=== PATIENT | female | born 1960 | race Caucasian/White ===

== ENCOUNTER 2021-08-05 16:39 | Emergency (ER) | payer OTHER, SELFPAY ==
[2021-08-05] VITALS (41 sets, daily range): BP systolic 121–146; BP diastolic 60–89; PULSE 83–103; RESP 12–28; TEMP 36.3; O2SAT 87–98
--- NOTE | 2021-08-05 16:45 | DI.RAD_ITS ---
Exam(s) XR HIP RT COMPLETE AP PELVIS EXAM: XR HIP RT COMPLETE AP PELVIS CLINICAL HISTORY: fall, injury. TECHNIQUE: 2D digital imaging was performed. COMPARISON: No exams were available for comparison FINDINGS: 3 views Is fractures through the upper femoral neck of the right hip. Mild displacement. No other pelvic fr actures identified. IMPRESSION: Right femoral neck fracture. DATA REPOSITORY: RADIATION DOSE DELIVERED:
[2021-08-05] MEDS: MORPHine 4 MG/ML SYR 3 MG IVP (17:10)
[2021-08-05 17:17] LABS: Abs Immature Grans 0.15 10^3/uL (0.0-0.06); Absolute Basophil Count 0.09 10^3/uL (0.0-0.2); Absolute Eosinophil Count 0.05 10^3/uL (0.0-0.7); Absolute Lymphocyte Count 1.56 10^3/uL (1.2-3.4); Absolute Monocyte Count 1.22 10^3/uL (0.1-0.8); Absolute Neutrophil Count 14.87 10^3/uL (1.2-6.7); Basophils % 0.5; Eosinophils % 0.3; HCT 37.8 % (36.0-46.0); HGB 12.4 g/dL (11.2-15.7); Immature Grans % 0.8; Lymphocytes % 8.7; MCH 33.8 pg (27.0-33.0); MCHC 32.8 % (32.0-36.0); MPV 9.9 fL (8.0-11.0); Monocytes % 6.8; Neutrophils % 82.9; Nucleated RBC 0 %; Platelet Count 287 10^3/uL (130-400); RBC 3.67 10^6/uL (3.93-5.22); RDW 13.8 % (11.7-14.6); WBC 17.94 10^3/uL (4.4-10.8)
[2021-08-05 17:31] LABS: ALT 29 U/L (14-59); AST 32 U/L (15-37); Albumin 3.9 g/dL (3.4-5.0); Alkaline Phosphatase 86 U/L (46-116); Anion Gap 8.8 mmol/L (3-11); BUN 30 mg/dL (7-18); Bilirubin, Total 0.3 mg/dL (0.2-1.0); CO2 30.2 mmol/L (21.0-32.0); CREATININE 0.6 mg/dL (0.55-1.02); Calcium 8.9 mg/dL (8.5-10.1); Chloride 100 mmol/L (98-107); Glucose 72 mg/dL (74-106); Potassium 3.4 mmol/L (3.5-5.1); Sodium 139 mmol/L (136-145); Total Protein 6.9 g/dL (6.4-8.2)
[2021-08-05 17:34] LABS: ETHANOL BLOOD 197.1 mg/dL (<10)
--- NOTE | 2021-08-05 17:45 | DI.CT_ITS ---
Exam(s) CT HEAD CERVICAL SPINE WO EXAM: CT HEAD CERVICAL SPINE WO CLINICAL HISTORY: fall, hip fx, etoh. TECHNIQUE: Imaging Protocol: Axial computed tomography images with coronal and sagittal reformatted images were created and reviewed COMPARISON: No exams were available for comparison FINDINGS: BRAIN: There are no skull fractures nor fluid in the visualized paranasal sinuses. However, there is multif ocal mucosal thickening consistent with probable polyps and/or post inflammatory retention cyst in th e maxillary sinuses, more prominent on the right side. Also mildly in the posterior wall of the sphe noid sinus. Frontal sinuses are hypoplastic. Mastoid air cells are clear. There is no evidence of intracranial hemorrhage, mass effect, or shift of midline structures. There are no extra-axial fluid collections. The ventricles are not enlarged or shifted and there is no blo od within the ventricular system nor within the basal cisterns. CERVICAL SPINE: There is no evidence of fracture nor significant listhesis. No significant prevertebral soft tissue swelling. There is no significant facet joint malalignment. No significant osseous lesions evident. Severe COPD emphysematous changes are noted in the visualized lung apices. IMPRESSION: No acute intracranial findings on this noninfused CT scan of the brain. No evidence of cervical spine fracture, malalignment, nor acute compromise of the cervical spinal can al. RADIATION DOSE DELIVERED: 1,493.04mGy.cm Total DLP DATA REPOSITORY: All CT scans at this facility are submitted to the National Radiology Data Registry (NRDR) Dose Index Registry (DIR) with the [employer] (A[employer]). RADIATION OPTIMIZATION: All CT scans at this facility use at least one of these dose optimization te chniques: automated exposure control; mA and/or kV adjustment per patient size (includes targeted exa ms where dose is matched to clinical indication); or iterative reconstruction.
--- NOTE | 2021-08-05 17:45 | DI.CT_ITS ---
Exam(s) CT ABDOMEN PELVIS W EXAM: CT ABDOMEN PELVIS W CLINICAL HISTORY: fall, hip pain, right hip fx , etoh. TECHNIQUE: Imaging Protocol: Axial computed tomography images with coronal and sagittal reformatted images were created and reviewed CONTRAST MATERIAL: Intravenous: Omnipaque 100cc Oral: None COMPARISON: No exams were available for comparison FINDINGS: VISUALIZED LUNG BASES: No nodules nor pleural effusions evident. ABDOMEN: There is no ascites. LIVER: There are no focal hepatic lesions evident. A surgical clip is seen within the right hepatic lobe. Also multiple surgical clips adjacent to the right adrenal gland. These clips are related to prior right nephrectomy. GALLBLADDER/BILIARY: Gallbladder is slightly distended but no gallbladder wall edema nor calculi. CB D is not dilated. PANCREAS: No evidence of pancreatic mass nor dilatation of the pancreatic duct. SPLEEN: Spleen is not enlarged. No obvious intrasplenic lesions. Splenic and portal veins are paten t. ADRENALS: There are no significant adrenal masses. KIDNEYS:Prior right nephrectomy. No abnormal tissue in this region. There is a cyst in the inferior pole of the remaining left kidney measuring 2.3 by 1.3 cm. No other focal left renal findings. No hydronephrosis nor hydroureter. ABDOMINAL AORTA: Abdominal aorta is not enlarged. LYMPH NODES:There is no retroperitoneal nor paraaortic adenopathy. ABDOMINAL WALL: No evidence of significant anterior abdominal wall nor inguinal hernia. GI: There is no evidence of bowel obstruction, free air, nor abscess. PELVIS: GI: No evidence of appendicitis.No evidence of sigmoid diverticulitis. LYMPH NODES: There is no intrapelvic nor inguinal adenopathy. REPRODUCTIVE: Uterus unremarkable. Left ovary appears slightly prominent for this age group, measuri ng 3.5 by 2.5 cm and contains a hypodense dense cyst measuring 9 x 9 millimeters. No free fluid. URINARY BLADDER: The urinary bladder is collapsed around the Sherman catheter. OSSEOUS: There is an displaced right femoral neck subcapital fracture.. No evidence of intrapelvic h ematoma. No other fractures identified. Mild degenerative anterolisthesis L4 upon L5. IMPRESSION: 1. There is an acute fracture of the right femoral neck with mild displacement and angulation. No ev idence of intrapelvic hematoma, other fractures, nor other significant trauma sequelae in the abdomen and pelvis. 2. Previous right nephrectomy. No abnormal tissue in the right renal fossa. Solitary cyst in the op posite-left kidney measuring 2.3 cm. No hydronephrosis. 3. Sherman catheter in the bladder and the bladder is collapsed. 4. No compression fractures. RADIATION DOSE DELIVERED: 673.92 mGy.cm Total DLP DATA REPOSITORY: All CT scans at this facility are submitted to the National Radiology Data Registry (NRDR) Dose Index Registry (DIR) with the [employer] (ACR). RADIATION OPTIMIZATION: All CT scans at this facility use at least one of these dose optimization te chniques: automated exposure control; mA and/or kV adjustment per patient size (includes targeted exa ms where dose is matched to clinical indication); or iterative reconstruction.
--- NOTE | 2021-08-05 17:57 | DI.CT_ITS ---
Exam(s) CT LUMBAR SPINE RECONS EXAM: CT LUMBAR SPINE RECONS CLINICAL HISTORY: fall, pain. TECHNIQUE: Imaging Protocol: Axial computed tomography images with coronal and sagittal reformatted images were created and reviewed COMPARISON: CT CT ABDOMEN PELVIS W from 08/05/2021 FINDINGS: Bones: There are no vertebral fractures, nor osseous lesions. Disc spaces exhibit normal height. T here is mild degenerative anterolisthesis of L4 upon L5. There are no pars defects. INDIVIDUAL LEVELS: T12-L1:No disc herniation nor canal stenosis. Facet joints unremarkable. No foraminal stenosis. L1-2: No disc herniation nor canal stenosis. Facet joints unremarkable. No foraminal stenosis. L2-3: No disc herniation nor canal stenosis. Facet joints unremarkable. No Foraminal stenosis L3-4: No disc herniation nor canal stenosis. Facet joints unremarkable. No foraminal stenosis. L4-5: Normal disc height. Mild anterolisthesis of L4 upon L5, approximately 3 millimeters. There i s no focal disc herniation but there is moderate central spinal canal stenosis due to broad annular b ulging related to the listhesis and short AP dimensions the pedicles. Also some degenerative changes in the facet joints. There is no significant foraminal stenosis at this level. L5-S1: No disc herniation or canal stenosis. The visualized sacroiliac joints and sacrum appear unremarkable. PARASPINAL SOFT TISSUES: Visualized paraspinal tissues appear unremarkable. IMPRESSION: 1. No vertebral fractures. 2. Mild degenerative anterolisthesis of L4 upon L5 with moderate central spinal canal stenosis eviden t at this level. 3. No lytic osseous lesions evident. RADIATION DOSE DELIVERED: Total DLP DATA REPOSITORY: All CT scans at this facility are submitted to the National Radiology Data Registry (NRDR) Dose Index Registry (DIR) with the [employer] (ACR). RADIATION OPTIMIZATION: All CT scans at this facility use at least one of these dose optimization te chniques: automated exposure control; mA and/or kV adjustment per patient size (includes targeted exa ms where dose is matched to clinical indication); or iterative reconstruction.
--- NOTE | 2021-08-05 17:57 | DI.VRAD_ITS ---
PROCEDURE INFORMATION: Exam: XR Right Hip Exam date and time: 08/05/2021 5:21 PM Age: 60 years old Clinical indication: Injury or trauma; Fall; Blunt trauma (contusions or hematomas); Right; Hip TECHNIQUE: Imaging protocol: XR Right hip. Views: 2 or 3 views hip with pelvis when performed. COMPARISON: No relevant images were readily available for comparison purposes. FINDINGS: Bones/joints: There is an acute mildly displaced subcapital right femoral neck fracture. Soft tissues: Unremarkable. IMPRESSION: Acute right femoral neck fracture. Dictated and Authenticated by: Trace Polanco MD. Ordering:HILDA Hong MD
--- NOTE | 2021-08-05 17:59 | DI.RAD_ITS ---
Exam(s) XR CHEST 1V IN DI DEPT EXAM: XR CHEST 1V IN DI DEPT CLINICAL HISTORY: hip fx, hx of og. TECHNIQUE: 2D digital imaging was performed. COMPARISON: No exams were available for comparison FINDINGS: Single AP portable view. Heart size is upper normal. The mediastinum is not widened. Lungs are clear. No infiltrates nor obvious pleural effusions. IMPRESSION: No acute pulmonary findings on this single AP portable view of the chest. DATA REPOSITORY: RADIATION DOSE DELIVERED: All CT scans at this facility use at least one of these dose optimization techniques: automated exposure control; mA and/or kV adjustment per patient size (includes targeted e xams where dose is matched to clinical indication); or iterative reconstruction.
[2021-08-05 18:09] LABS: Bilirubin Negative (Negative); Blood Negative (Negative); Clarity Clear (Clear); Glucose Negative (Negative); Ketones Negative (Negative); Leukocyte Esterase Negative (Negative); Nitrite Negative (Negative); Specific Gravity 1.025 (1.005-1.025); Urobilinogen 0.2 EU/dL (Up TO 0.2)
[2021-08-05 18:21] LABS: *AMPHETAMINES SCREEN URINE Negative (Negative); *BARBITURATES SCREEN URINE Negative (Negative); *BENZODIAZEPINES SCREEN URINE Negative (Negative); Cannabinoids THC Negative (Negative); Cocaine Screen,Urine Negative (Negative); METHADONE URINE SCREEN Negative (Negative); OPIATES URINE SCREEN Positive (Negative)
[2021-08-05 18:22] LABS: Tricyclic Antidepressants Negative (Negative)
--- NOTE | 2021-08-05 19:15 | DI.VRAD_ITS ---
PROCEDURE INFORMATION: Exam: CT Abdomen And Pelvis With Contrast Exam date and time: 08/05/2021 6:48 PM Age: 60 years old Clinical indication: Injury or trauma; Blunt; Patient HX: Fall, hip pain, right hip FX, ETOH TECHNIQUE: Imaging protocol: Computed tomography of the abdomen and pelvis with contrast. COMPARISON: CR XR HIP RT COMPLETE AP PELVIS 08/05/2021 5:21 PM FINDINGS: Lungs: Mild centrilobular emphysematous changes in bilateral lung bases. Liver: Normal. No mass. Gallbladder and bile ducts: Normal. No calcified stones. No ductal dilation. Pancreas: Normal. No ductal dilation. Spleen: Normal. No splenomegaly. Adrenal glands: Normal. No mass. Kidneys and ureters: Right nephrectomy. Compensatory hypertrophy in left kidney. Stomach and bowel: Diffuse wall thickening in gastric antrum and pylorus. Appendix: No evidence of appendicitis. Intraperitoneal space: No free fluid or fluid collections. No inflammatory changes. No free air. Vasculature: Unremarkable. No abdominal aortic aneurysm. Lymph nodes: Unremarkable. No enlarged lymph nodes. Urinary bladder: Sherman balloon within urinary bladder. Reproductive: Unremarkable as visualized. Bones/joints: Fracture of right femoral neck with mild displacement and moderate angulation. Soft tissues: Unremarkable. IMPRESSION: 1. Fracture of right femoral neck with mild displacement and moderate angulation. 2. No evidence of visceral organ or vascular injury. 3. Diffuse wall thickening in gastric antrum and pylorus. Please correlate clinically for gastritis. Dictated and Authenticated by: Jacqueline Curtis MD. Ordering:HILDA Hong MD
--- NOTE | 2021-08-05 19:16 | DI.VRAD_ITS ---
PROCEDURE INFORMATION: Exam: CT Head Without Contrast Exam date and time: 08/05/2021 6:40 PM Age: 60 years old Clinical indication: Injury or trauma; Patient HX: Fall, hip FX, ETOH TECHNIQUE: Imaging protocol: Computed tomography of the head without contrast. COMPARISON: No relevant prior studies available. FINDINGS: Brain: Normal. No hemorrhage. Unremarkable white matter. No mass effect. Extra-axial space: No evidence of subdural hemorrhage. Cerebral ventricles: No ventriculomegaly. Paranasal sinuses: Visualized sinuses are unremarkable. No fluid levels. Mastoid air cells: Visualized mastoid air cells are well aerated. Bones/joints: Unremarkable. No acute fracture. Soft tissues: Unremarkable. IMPRESSION: No acute intracranial abnormality. PROCEDURE INFORMATION: Exam: CT Cervical Spine Without Contrast Exam date and time: 08/05/2021 6:40 PM Age: 60 years old Clinical indication: Injury or trauma; Patient HX: Fall, hip FX, ETOH TECHNIQUE: Imaging protocol: Computed tomography images of the cervical spine without contrast. COMPARISON: No relevant prior studies available. FINDINGS: Bones/joints: Degenerative changes noted in the temporomandibular joints bilaterally. Mild degenerative anterolisthesis C2 on C3. Discs/Spinal canal/Neural foramina: Moderate disc space narrowing with endplate sclerosis and osteophytes noted C5-C6. Mild degenerative changes present elsewhere. Sinuses: Large polyp or mucous retention cyst noted in the right maxillary sinus. Dental: Moderate right maxillary dental disease. Lungs: Severe centrilobular emphysema. Soft tissues: Unremarkable. Other findings: Moderate motion artifact. IMPRESSION: No evidence of cervical spine fracture. Dictated and Authenticated by: Alejandro Alfredo MD. Ordering:HILDA Hong MD
--- NOTE | 2021-08-05 19:16 | DI.VRAD_ITS ---
PROCEDURE INFORMATION: Exam: XR Chest Exam date and time: 08/05/2021 6:50 PM Age: 60 years old Clinical indication: Injury or trauma; Fall; Blunt trauma (contusions or hematomas) TECHNIQUE: Imaging protocol: XR of the chest. Views: 1 view. COMPARISON: CT ABDOMEN PELVIS W 08/05/2021 6:48 PM FINDINGS: Lungs: No infiltrates. No mass lesion or nodule seen. Pleural spaces: Unremarkable. No pleural effusion. No pneumothorax. Heart/Mediastinum: Unremarkable. No cardiomegaly. Bones/joints: Unremarkable. IMPRESSION: No evidence of pathology. Dictated and Authenticated by: Jacqueline Curtis MD. Ordering:HILDA Hong MD
--- NOTE | 2021-08-05 19:18 | DI.VRAD_ITS ---
PROCEDURE INFORMATION: Exam: CT Lumbar Spine Without Contrast Exam date and time: 08/05/2021 6:48 PM Age: 60 years old Clinical indication: Injury or trauma; Blunt trauma (contusions or hematomas); Patient HX: Fall, pain, RT hip FX TECHNIQUE: Imaging protocol: Computed tomography images of the lumbar spine without contrast. COMPARISON: CR XR HIP RT COMPLETE AP PELVIS 08/05/2021 5:21 PM FINDINGS: Vertebrae: Vertebral body heights are within normal limits. No evidence of compression fracture. No evidence of acute fracture. L1-L2: No significant disc protrusion. No severe spinal canal stenosis. No significant neural foraminal narrowing. L2-L3: No significant disc protrusion. No severe spinal canal stenosis. No significant neural foraminal narrowing. L3-L4: 3 mm diffuse bulge. Redundancy of ligamentum flavum. Mild canal stenosis. L4-L5: 4 mm degenerative anterolisthesis of L4 over L5. 3 mm diffuse posterior bulge. Redundancy of ligamentum flavum. Moderate canal stenosis. No neural foraminal narrowing. Left facet arthropathy. Mild right facet arthropathy. L5-S1: No evidence of disc protrusion or extrusion. No evidence of significant disc bulge. No canal stenosis. No neuroforaminal stenosis. Soft tissues: Unremarkable. IMPRESSION: Vertebral body heights are within normal limits. No evidence of compression fracture. No evidence of acute fracture. Dictated and Authenticated by: Jacqueline Curtis MD. Ordering:HILDA Hong MD
[2021-08-05] MEDS: Normal Saline 500 ML IV (19:27)
[2021-08-05] MEDS: MORPHine 4 MG/ML SYR IVP ×2 (19:27→22:03)
[2021-08-05 19:54] LABS: COVID-19 PCR Negative (Negative); Source Nasal/Nares
--- NOTE | 2021-08-05 20:15 | DI.RAD_ITS ---
Exam(s) XR FEMUR RT EXAM: XR FEMUR RT CLINICAL HISTORY: fracture. TECHNIQUE: 2D digital imaging was performed. COMPARISON: CT CT ABDOMEN PELVIS W from 08/05/[address] LUMBAR SPINE RECONS from 08/05/2021 FINDINGS: Two views There is limited visualization of the right hip. However, there does appear to be a mildly displaced subcapital femoral neck fracture. There is no fracture in the distal half of the femur. IMPRESSION: DATA REPOSITORY: RADIATION DOSE DELIVERED:
--- NOTE | 2021-08-05 20:49 | W.ED.GENAD ---
Discharge Plan Disposition Patient Disposition: [facility] Condition: Stable Discharge Details Clinical Impression: Closed fracture of right hip, Alcohol abuse Primary Care Provider: Aurora Tapia ED Provider: Gely Rivas Home Meds and New Rx's Prescriptions: Continued simvastatin 10 mg Tablet 10 mg PO DAILY 0RF furosemide [Lasix] 20 mg Tablet 20 mg PO DAILY 0RF sirolimus [Rapamune] 2 mg Tablet 2 mg PO DAILY 0RF ascorbic acid (vitamin C) [Vitamin C] 1,000 mg Tablet 1,000 mg PO DAILY 0RF metoprolol tartrate 25 mg Tablet 25 mg PO DAILY 0RF Medical Decision Making Patient is complicated, she is a blood alcohol of 197 but denies regular alcohol consumption She states she did have some alcohol last evening with her friends. She denies any daily drinking. She also denies any opiate use and she is opiate positive on her urinalysis She is tolerating her 3 L of oxygen without incident throughout her stay She responding well to 4 mg of morphine for pain control Her chest x-ray, CT abdomen and pelvis, and CT brain and cervical spine do not show acute abnormality aside from right femoral neck fracture which was confirmed on x-ray Her urinalysis is clear for evidence of infection She does have mild leukocytosis at 17,000, I do not see a source of infection Her Covid swab is negative She is fully alert and oriented throughout with encounter and she is agreeable to transfer to alternate facility as needed not have orthopedics available Her blood sugar was 72-year, supplemented with juice and maura crackers Patient has no reported history of diabetes Given observed her for evidence of alcohol withdrawal throughout her encounter sure there is been no evidence throughout her stay Potassium was 3.4, we will supplement 10 mEq potassium BUN is 30, she received 1 L of normal saline Case discussed with Dr. Costello, orthopedic who has accepted patient in transport to [facility] Preserved on [facility], no evidence of withdrawal throughout her evaluation today Medical Records Medical records reviewed: Yes I reviewed the patient's medical records. Lab Data Lab results reviewed: Yes I reviewed the patient's lab results. HPI General Date/Time Provider Initiated Documentation: 08/05/21 16:57. HPI Narrative: This 60-year-old female with history of FOLEY, hypertension, hyperlipidemia, on 3 L of oxygen at baseline, and peripheral edema presents with report of fall at approximately 9:00 this morning. She reports that she was walking with some boxes that she is moving and tripped over a box, falling on her right side. She denies any head injury. She states initially she was able to ambulate but then about 4:00 she had some difficulty and called the ambulance as she was unable to successfully ambulate any longer. She denies head injury, anticoagulation, chest pain, abdominal pain, shortness of breath. She denies any dizziness. She denies prior history of injury to the affected extremity before. She has any nausea or vomiting. She states she is unable to place any pressure on the affected extremity. Denies any sensation changes distally. Denies any current headache or neck pain. Related Data Home Medications Medication Instructions Recorded Confirmed ascorbic acid (vitamin C) 1,000 mg 1,000 mg PO DAILY 08/05/21 08/05/21 tablet (Vitamin C) furosemide 20 mg tablet (Lasix) 20 mg PO DAILY 08/05/21 08/05/21 metoprolol tartrate 25 mg tablet 25 mg PO DAILY 08/05/21 08/05/21 simvastatin 10 mg tablet 10 mg PO DAILY 08/05/21 08/05/21 sirolimus 2 mg tablet (Rapamune) 2 mg PO DAILY 08/05/21 08/05/21 Allergies Allergy/AdvReac Type Severity Reaction Status Date / Time No Known Allergies Allergy Unverified 08/05/21 16:49 General Stated Complaint: Orthopedic LAZARA: 3 Review of Systems All systems reviewed & are unremarkable except as noted in HPI and below PFSH All Active Problems Closed fracture of right hip (Acute) Alcohol abuse (Chronic) Social History Smoking/Tobacco Use Status: Former Tobacco Use Smoking risk assessment performed?: Yes Drug use: Never Substance use type: does not use Exam Const General: cooperative and comfortable Orientation: alert and oriented x3 HENMT Head: normal to inspection Eyes Pupils: PERRL Resp Effort & Inspection: normal respiratory effort Auscultation: clear to auscultation bilaterally Cardio Rate: regular rate Rhythm: regular rhythm GI Inspection: normal to inspection Other: No abdominal tenderness or visible evidence of trauma Back/Spine/Pelvis Back: no CVA tenderness and CVA tenderness Other: No thoracic tenderness or visible evidence of trauma, no CVA tenderness Skin General skin exam: no rashes or lesions noted Neuro General: patient alert and patient oriented x3 Extrem Other: Right hip abducted with internal rotation, neurovascularly intact, no tenderness to right knee Psych Appearance: well kempt Affect: normal affect Course Vital Signs Vital signs: Vital Signs Temperature 36.3 C L 08/05/21 16:41 Pulse 86 08/05/21 16:41 Respiratory Rate 27 H 08/05/21 16:41 Blood Pressure 129/89 08/05/21 16:41 Pulse Oximetry 90 L 08/05/21 16:41 Temperature 36.3 C L 08/05/21 16:41 Temperature Source Skin 08/05/21 16:41 Pulse 98 H 08/05/21 19:33 Pulse 99 H 08/05/21 19:33 Respiratory Rate 20 08/05/21 19:33 Respiratory Effort 08/05/21 16:41 Respiratory Pattern Normal 08/05/21 19:33 Blood Pressure 121/78 08/05/21 19:33 Blood Pressure Mean 83 08/05/21 19:33 Blood Pressure Position Supine 08/05/21 16:41 Pulse Oximetry 90 L 08/05/21 19:33 Oxygen Delivery Method Nasal Cannula 08/05/21 16:41 Oxygen Flow Rate 3 08/05/21 16:41 Pain Level 10 08/05/21 19:27 Lab/Test Results Lab/Test Results: Laboratory Tests Range/Units 08/05/21 08/05/21 08/05/21 17:05 17:05 17:05 WBC (4.4-10.8) 10^3/uL 17.94 H RBC (3.93-5.22) 10^6/uL 3.67 L Hgb (11.2-15.7) g/dL 12.4 Hct (36.0-46.0) % 37.8 MCV (80-95) fL 103.0 H MCH (27.0-33.0) pg 33.8 H MCHC (32.0-36.0) % 32.8 RDW (11.7-14.6) % 13.8 Plt Count (130-400) 10^3/uL 287 MPV (8.0-11.0) fL 9.9 Immature Gran % 0.8 Neutrophils % 82.9 Lymphocytes % 8.7 Monocytes % 6.8 Eosinophils % 0.3 Basophils % 0.5 Nucleated RBC % % 0 Absolute Neutrophils (1.2-6.7) 10^3/uL 14.87 H Absolute Lymphocytes (1.2-3.4) 10^3/uL 1.56 Absolute Monocytes (0.1-0.8) 10^3/uL 1.22 H Absolute Eosinophils (0.0-0.7) 10^3/uL 0.05 Absolute Basophils (0.0-0.2) 10^3/uL 0.09 Sodium (136-145) mmol/L 139 Potassium (3.5-5.1) mmol/L 3.4 L Chloride (98-107) mmol/L 100 Carbon Dioxide (21.0-32.0) mmol/L 30.2 Anion Gap (3-11) mmol/L 8.8 BUN (7-18) mg/dL 30 H Creatinine (0.55-1.02) mg/dL 0.6 Estimated GFR/1.73 m2 (mL/min/1.73m2) >= 60.00 Glucose (74-106) mg/dL 72 L Calcium (8.5-10.1) mg/dL 8.9 Total Bilirubin (0.2-1.0) mg/dL 0.3 AST (15-37) U/L 32 ALT (14-59) U/L 29 Alkaline Phosphatase (46-116) U/L 86 Total Protein (6.4-8.2) g/dL 6.9 Albumin (3.4-5.0) g/dL 3.9 Urine Color (Yellow) Urine Clarity (Clear) Urine pH (5-8) Ur Specific [place] (1.005-1.025) Urine Protein (Negative) mg/dL Urine Ketones (Negative) mg/dL Urine Blood (Negative) Urine Nitrite (Negative) Urine Bilirubin (Negative) Urine Urobilinogen (Up TO 0.2) EU/dL Ur Leukocyte Esterase (Negative) Urine Glucose (Negative) mg/dL Urine Opiates Screen (Negative) Urine Methadone Screen (Negative) Ur Barbiturates Screen (Negative) Ur Tricyclics Screen (Negative) Ur Amphetamines Screen (Negative) U Benzodiazepines Scrn (Negative) Urine Cocaine Screen (Negative) Ur THC Screen (Negative) Ethyl Alcohol (<10) mg/dL 197.1 H COVID-19 Source SARS-CoV-2 (PCR) (Negative) Range/Units 08/05/21 08/05/2108/05/22 18:05 18:05 19:12 WBC (4.4-10.8) 10^3/uL RBC (3.93-5.22) 10^6/uL Hgb (11.2-15.7) g/dL Hct (36.0-46.0) % MCV (80-95) fL MCH (27.0-33.0) pg MCHC (32.0-36.0) % RDW (11.7-14.6) % Plt Count (130-400) 10^3/uL MPV (8.0-11.0) fL Immature Gran % Neutrophils % Lymphocytes % Monocytes % Eosinophils % Basophils % Nucleated RBC % % Absolute Neutrophils (1.2-6.7) 10^3/uL Absolute Lymphocytes (1.2-3.4) 10^3/uL Absolute Monocytes (0.1-0.8) 10^3/uL Absolute Eosinophils (0.0-0.7) 10^3/uL Absolute Basophils (0.0-0.2) 10^3/uL Sodium (136-145) mmol/L Potassium (3.5-5.1) mmol/L Chloride (98-107) mmol/L Carbon Dioxide (21.0-32.0) mmol/L Anion Gap (3-11) mmol/L BUN (7-18) mg/dL Creatinine (0.55-1.02) mg/dL Estimated GFR/1.73 m2 (mL/min/1.73m2) Glucose (74-106) mg/dL Calcium (8.5-10.1) mg/dL Total Bilirubin (0.2-1.0) mg/dL AST (15-37) U/L ALT (14-59) U/L Alkaline Phosphatase (46-116) U/L Total Protein (6.4-8.2) g/dL Albumin (3.4-5.0) g/dL Urine Color (Yellow) Yellow Urine Clarity (Clear) Clear Urine pH (5-8) 6.0 Ur Specific [place] (1.005-1.025) 1.025 Urine Protein (Negative) mg/dL Negative Urine Ketones (Negative) mg/dL Negative Urine Blood (Negative) Negative Urine Nitrite (Negative) Negative Urine Bilirubin (Negative) Negative Urine Urobilinogen (Up TO 0.2) EU/dL 0.2 Ur Leukocyte Esterase (Negative) Negative Urine Glucose (Negative) mg/dL Negative Urine Opiates Screen (Negative) Positive A Urine Methadone Screen (Negative) Negative Ur Barbiturates Screen (Negative) Negative Ur Tricyclics Screen (Negative) Negative Ur Amphetamines Screen (Negative) Negative U Benzodiazepines Scrn (Negative) Negative Urine Cocaine Screen (Negative) Negative Ur THC Screen (Negative) Negative Ethyl Alcohol (<10) mg/dL COVID-19 Source Nasal/Nares SARS-CoV-2 (PCR) (Negative) Negative
--- NOTE | 2021-08-05 21:23 | DI.VRAD_ITS ---
PROCEDURE INFORMATION: Exam: XR Right Femur Exam date and time: 08/05/2021 8:45 PM Age: 60 years old Clinical indication: Injury or trauma; Blunt trauma; Right; Patient HX: Fall, hip FX TECHNIQUE: Imaging protocol: XR Right femur. Views: 2 views. COMPARISON: CT ABDOMEN PELVIS W 08/05/2021 6:48 PM FINDINGS: Bones/joints: Limited visualization of mildly displaced fracture of right femoral neck. No fracture of distal femur. No fracture of the tibial plateau. Patella is unremarkable. No fracture of femoral diaphysis. Soft tissues: Unremarkable. IMPRESSION: 1. Limited visualization of mildly displaced fracture of right femoral neck. 2. No fracture of mid or distal femur. Dictated and Authenticated by: Jacqueline Curtis MD. Ordering:HILDA Hong MD
[2021-08-05] MEDS: Potassium Chloride 10 MEQ TABCR PO (21:38)
[2021-08-05] MEDS: Normal Saline 250 ML IV (21:39)
[2021-08-05] MEDS: Ondansetron 4 MG/2 ML VIAL IVP (23:08)
== END 2021-08-05 23:07 | disposition short-term general hospital (02) ==
PROVIDERS: Emergency Provider Physician Assistant
DX: S72.091A Other fracture of head and neck of right femur, initial encounter for closed fracture (principal); W01.0XXA Fall on same level from slipping, tripping and stumbling without subsequent striking against object, initial encounter; F10.20 Alcohol dependence, uncomplicated; E87.6 Hypokalemia; D72.829 Elevated white blood cell count, unspecified; Y90.6 Blood alcohol level of 120-199 mg/100 ml
CPT/HCPCS: 36415; 73552; 80053; 80307; 82962; 87635; 96361; 96365; 96366; 96375; 96376; 99284; 99285; 70450; 71045; 72125; 73502; 74177; 80320; 81003; 85025; J0131; J2270; J2405

== ENCOUNTER 2022-02-10 04:29 | Inpatient (IN) | payer OTHER, SELFPAY ==
[2022-02-10] VITALS (87 sets, daily range): BP systolic 60–188; BP diastolic 33–103; PULSE 100–150; RESP 8–42; TEMP 36.4–36.7; O2SAT 86–100
--- NOTE | 2022-02-10 | DI.RAD_ITS ---
Exam(s) XR PORTABLE CHEST AP POST LINE EXAM: XR PORTABLE CHEST AP POST LINE CLINICAL HISTORY: confirm NGT placement TECHNIQUE: COMPARISON: CR,XR XR PORTABLE CHEST AP POST LINE from 02/10/2022 FINDINGS: Previously described endotracheal tube is again noted in place. An NG tube has been placed tip of wh ich lies in the gastric fundus. No change in appearance of the lungs with mild interstitial prominen ce again noted. IMPRESSION: RADIATION DOSE DELIVERED: Total DLP
--- NOTE | 2022-02-10 | DI.RAD_ITS ---
Exam(s) XR PORTABLE CHEST AP POST LINE EXAM: XR PORTABLE CHEST AP POST LINE CLINICAL HISTORY: post-intubation TECHNIQUE: COMPARISON: CR,XR XR PORTABLE CHEST AP from 02/10/2022 FINDINGS: An endotracheal tube has been placed and appears to be in good position. No focal intrapulmonary con solidation. No pneumothorax. Mild apparent chronic interstitial disease noted. IMPRESSION: RADIATION DOSE DELIVERED: Total DLP
--- NOTE | 2022-02-10 | DI.RAD_ITS ---
Exam(s) XR PORTABLE CHEST AP POST LINE EXAM: XR PORTABLE CHEST AP POST LINE CLINICAL HISTORY: post ET tube adjustment TECHNIQUE: COMPARISON: CR,XR XR PORTABLE CHEST AP POST LINE from 02/10/2022 FINDINGS: Endotracheal tube again noted, the tip of the tube lies approximately 5-6 cm above the elkin. Heart is not enlarged. Nonspecific likely chronic increased pulmonary interstitial markings are again see n bilaterally, no focal consolidation or pneumothorax. No change from prior study obtained earlier [facility]ds[facility]. IMPRESSION: RADIATION DOSE DELIVERED: Total DLP
--- NOTE | 2022-02-10 04:15 | RT.EKG_ITS ---
APPROVED REPORT Exam: Resting ECG Reason for Exam: shortness of breath Patient Location: I HR:132 bpm ECG Measurements Heart Rate 132 AXIS HI 173 P 82 QRSd 89 QRS 74 QT 309 T 257 QTc 460 Conclusion Sinus tachycardia...rate> 99 Ventricular premature complex...V complex w/ short R-R interval
[2022-02-10] MEDS: LORazepam 20 MG/10 ML VIAL ×2 (04:30→04:50)
--- NOTE | 2022-02-10 04:30 | DI.RAD_ITS ---
Exam(s) XR PORTABLE CHEST AP EXAM: XR PORTABLE CHEST AP CLINICAL HISTORY: shortness of breath TECHNIQUE: COMPARISON: CR,XR XR CHEST 1V IN DI DEPT from 08/05/2021 FINDINGS: Heart is not enlarged. Lungs are predominantly clear with some apparent interstitial fibrotic change s and focal scars. No gross interval change from August 05 films. IMPRESSION: No evidence of acute process. RADIATION DOSE DELIVERED: Total DLP
--- NOTE | 2022-02-10 04:38 | W.ED.GENAD ---
Discharge Plan Disposition Patient Disposition: [facility] Condition: Poor Discharge Details Chief Complaint: SOB Clinical Impression: Acute respiratory failure with hypoxia, Increased anion gap metabolic acidosis, Acidosis, lactic Primary Care Provider: Aurora Tapia ED Provider: Alejandro Goff Home Meds and New Rx's Prescriptions: No Action simvastatin 10 mg Tablet 10 mg PO DAILY furosemide [Lasix] 20 mg Tablet 20 mg PO DAILY sirolimus [Rapamune] 2 mg Tablet 2 mg PO DAILY ascorbic acid (vitamin C) [Vitamin C] 1,000 mg Tablet 1,000 mg PO DAILY metoprolol tartrate 25 mg Tablet 25 mg PO DAILY Medical Decision Making 61 yo female with hx of FOLEY, hld, who comes in with ems with shortness of breath worsening for a day. She also has had a cough. She called ems and ems arrived and she was reportedly in the 70's for oxygen saturation. They gave her nebulizers and also IM epinephrine as she initially had no breath sounds and had some improvement with the medications. On arrival she is tachypneic and speaking in 12 word sentences. She appears anxious. She has no jvd or leg swelling or calf tenderness. She has diminished breath sounds at the bases and apical wheezing bilaterally. On bedside u/s of her heart she has hyperdynamic heart, no pericardial effusion, no jvd on exam. Suspect copd exacerbation given her history, will continue nebs, solumedrol, and place on bipap for work of breathing. Will obtain ekg, troponin, cbc, cmp and cxr as well. She denies any chest pain and no evidence of dvt and exam consistent with copd exacerbation so do not feel workup for PE indicated at this time pt was agitated and not tolerating bipap so ativan and morphine given to help facilitate this labs show anion gap over 20, wbc of 14, creatinine 1.5, was 0.6 last time she was here, pH 6.9 drawn as she was just starting to tolerate the bipap, and also pco over 60 on abg. She is tolerating bipap now, breaething synchronously with it and has oxygen saturation of 95% and awakens easily and is protecting her airway, given she is tolerating the bipap, protecting her airway and has saturations in the mid 90's do not feel intubation indicated at the present time. will admit to the icu for further monitoring and care Differential Diagnosis Differential Diagnosis: copd, pneumonia, chf, nstemi Medical Records Medical records reviewed: Yes I reviewed the patient's medical records. Lab Data Lab results reviewed: Yes I reviewed the patient's lab results. ECG Data Attestation: I personally reviewed and interpreted this ECG (s) as follows: Prior ECG tracings: not available for review Interpretation: sinus tachycardia, rate of 132, no stemi HPI General Mode of arrival: EMS. Date/Time Provider Initiated Documentation: 02/10/22 04:36. Information obtained by: patient and EMS. History of Present Illness 61 year old F presents to the emergency department with the chief complaint of shortness of breath, described as moderate, Patient started experiencing this day(s) (1) and it has been constant. Rest improves symptom(s), Movement worsens symptoms . Patient notes cough. Patient did receive the following treatments prior to arrival, none Related Data Home Medications Medication Instructions Recorded Confirmed ascorbic acid (vitamin C) 1,000 mg 1,000 mg PO DAILY 08/05/21 08/05/21 tablet (Vitamin C) furosemide 20 mg tablet (Lasix) 20 mg PO DAILY 08/05/21 08/05/21 metoprolol tartrate 25 mg tablet 25 mg PO DAILY 08/05/21 08/05/21 simvastatin 10 mg tablet 10 mg PO DAILY 08/05/21 08/05/21 sirolimus 2 mg tablet (Rapamune) 2 mg PO DAILY 08/05/21 08/05/21 Allergies Allergy/AdvReac Type Severity Reaction Status Date / Time No Known Allergies Allergy Unverified 02/10/22 06:13 General LAZARA: 3 Review of Systems All systems reviewed & are unremarkable except as noted in HPI and below Constitutional Constitutional: Denies chills, Denies fever(s) and Denies weakness Cardiovascular Cardiovascular: Denies chest pain Gastrointestinal Gastrointestinal: Denies abdominal pain, Denies nausea and Denies vomiting Neurologic Neurologic: Denies weakness PFSH All Active Problems (Updated 02/10/22 @ 06:14 by Alejandro Goff MD) Acute respiratory failure with hypoxia (Acute) Increased anion gap metabolic acidosis (Acute) Acidosis, lactic (Acute) Social History Smoking/Tobacco Use Status: Former Tobacco Use Smoking risk assessment performed?: Yes Drug use: Never Substance use type: does not use Exam Const Orientation: alert HENMT Head: normal to inspection Ears: external ears normal General nose exam: external nose normal Mouth: moist mucous membranes Eyes General: appearance normal, both eyes and all related structures Neck Neck: normal visual inspection Resp Effort & Inspection: audible wheezes Cardio Rate: regular rate Skin General skin exam: no rashes or lesions noted Neuro General: patient alert and patient oriented x3 Extrem General: normal to inspection Psych Mental Status: mental status grossly normal Course Lab/Test Results Lab/Test Results: 02/10/22 04:28 Blood Blood Culture - Pending 02/10/22 04:28 Blood Blood Culture - Pending
[2022-02-10] MEDS: Albuterol/Ipratropium 3 ML UPD VIAL (04:40)
[2022-02-10 04:43] LABS: Abs Immature Grans 0.07 10^3/uL (0.0-0.06); Absolute Basophil Count 0.11 10^3/uL (0.0-0.2); Absolute Lymphocyte Count 2.01 10^3/uL (1.2-3.4); Absolute Monocyte Count 2.17 10^3/uL (0.1-0.8); Absolute Neutrophil Count 9.76 10^3/uL (1.2-6.7); Basophils % 0.8; HCO3 (Venous) 11 mmol/L (23-28); HCT 42.6 % (36.0-46.0); HGB 12.6 g/dL (11.2-15.7); Immature Grans % 0.5; Lymphocytes % 14.2; MCH 32.1 pg (27.0-33.0); MCHC 29.6 % (32.0-36.0); MCV 109 fL (80-95); MPV 10.2 fL (8.0-11.0); Monocytes % 15.4; Neutrophils % 69.1; O2 Sat (Venous) 90 %; Platelet Count 413 10^3/uL (130-400); RBC 3.92 10^6/uL (3.93-5.22); RDW 12.9 % (11.7-14.6); RDW-SD 51.7 fL; TCO2 (Venous) 11 mmol/L (24-29); WBC 14.12 10^3/uL (4.4-10.8); pCO2 (Venous) 47 mmHg (41-51); pO2 (Venous) 71 mmHg
[2022-02-10 04:45] LABS: Lactate 3.5 mmol/L (0.6-1.4); pH (Venous) 6.99 (7.31-7.41)
[2022-02-10 04:59] LABS: Diff Comment Agrees w/ Instrument
[2022-02-10 05:05] LABS: ALT 24 U/L (14-59); AST 38 U/L (15-37); Albumin 4.1 g/dL (3.4-5.0); Alkaline Phosphatase 92 U/L (46-116); Anion Gap 29.4 mmol/L (3-11); BUN 27 mg/dL (7-18); Bilirubin, Total 0.5 mg/dL (0.2-1.0); CO2 13.6 mmol/L (21.0-32.0); Calcium 9.5 mg/dL (8.5-10.1); Chloride 92 mmol/L (98-107); Glucose 148 mg/dL (74-106); Potassium 4.7 mmol/L (3.5-5.1); Sodium 135 mmol/L (136-145); Total Protein 7.9 g/dL (6.4-8.2); Troponin I < 50 ng/L (<or=60)
[2022-02-10 05:11] LABS: Magnesium 1.9 mg/dL (1.8-2.4); NT-proBNP 2015 pg/mL (<300)
[2022-02-10] MEDS: methylPREDNISolone SUCC 125 MG VIAL (05:11)
[2022-02-10 05:15] LABS: ETHANOL BLOOD < 3.0 mg/dL (<10)
[2022-02-10] MEDS: Normal Saline 1,000 ML 1000 ML IV (05:15)
[2022-02-10] MEDS: LORazepam 20 MG/10 ML VIAL IVP (05:16)
[2022-02-10 05:19] LABS: CREATININE 1.5 mg/dL (0.55-1.02)
[2022-02-10] MEDS: MORPHine 4 MG/ML SYR (05:20)
[2022-02-10 05:41] LABS: Source Nasal/Nares
[2022-02-10 05:46] LABS: HCO3 13 mmol/L (22-26); pO2 53 mmHg (80-105); sO2 74 % (95-98); tCO2 14 mmol/L (23-27)
[2022-02-10 05:51] LABS: pH 6.89 (7.35-7.45)
[2022-02-10 05:52] LABS: FIO2 30 %; Site Right Radial; pCO2 67 mmHg (35-45)
[2022-02-10] MEDS: MAGNESIUM SULFATE 2 GM/50 ML BAG 50 GM (06:06)
--- OUTSIDE RECORDS SUMMARY | 2022-02-10 06:07 | XMS_ITS | Clinical Summary ---
:1960 Author Organization [facility] [place] [address] Care Team Providers Name Role Phone Magdalene Lin Primary Care Provider [phone] Allergies Active Allergy Reactions Severity Noted Date Comments Hymenoptera Allergenic Extract Anaphylaxis High 11/18/2018 Medications Medication Sig Dispensed Refills Start Date End Date Status CIS Free Text Med - 1 Puff(s), Inh, 0 06/08/2008 Active Albuterol Q4-6H,PRN Sirolimus 2 mg Take 2 mg by mouth 1 11/16/2018 Active Tablet daily. simvastatin (ZOCOR) Take 20 mg by mouth 1 11/16/2018 Active 20 mg Tablet daily. multivitamin Take 1 tablet by 30 tablet 12 11/20/2018 Active (THERAGRAN) Tablet mouth daily. metoprolol tartrate Take 1 tablet by 180 tablet 0 11/22/2018 Active (LOPRESSOR) 25 mg mouth 2 times daily. Tablet traZODone (Desyrel) Take 50 mg by mouth 0 05/21/2020 Active 50 mg Tablet nightly. albuteroL 90 INHALE 2 PUFFS BY 0 08/03/2021 Active mcg/actuation HFA MOUTH FOUR TIMES A Aerosol Inhaler DAY NEEDED albuteroL INHALE 1 VIAL VIA 0 06/29/2021 A ctive (Proventil) 2.5 mg NEBULIZER EVERY 4 /3 mL (0.083 %) HOURS NEEDED FOR Solution for BRONCHOSPASMS Nebulization Breztri Aerosphere 0 07/24/2021 Active 160-9-4.8 mcg/actuation HFA Aerosol Inhaler busPIRone (Buspar) 0 07/31/2021 Active [address] TAKE ONE (1) CAPSULE 0 07/31/2021 Active (Cymbalta) 60 mg BY MOUTH ONCE DAILY Capsule, Delayed FOR MOOD Release(E.C.) EPINEPHrine 0.3 INJECT 1 SYRINGE 0 04/18/2021 Active mg/0.3 mL INTRAMUSCULARLY Auto-Injector NEEDED FOR ANAPHYLAXIS -PLEASE CONTACT PATIENT TO VERIFY IF NEEDED PRIOR TO FILLING- potassium chloride TAKE 1 TABLET BY 0 07/31/2021 Active ER (K-Dur/Klor-Con) MOUTH TWICE DAILY 20 mEq Tab Sust.Rel. Particle/Crystal acetaminophen Take 2 tablets by 0 08/14/2021 Active (Tylenol) 500 mg mouth every 8 hours. Tablet Continue the Tylenol around the clock for 10 days after surgery, (08/16/21). Then may take if needed per package insert. Do not take more than 3,000 mg of Tylenol in 24 hours. polyethylene glycoL Take 17 g by mouth 2 0 2 Active (Miralax) 17 gram times daily. Powder in Packet gabapentin Take 1 capsule by 90 capsule 1 08/14/2021 Active (Neurontin) 300 mg mouth 3 times daily. Capsule calcium carbonate Take 1 tablet by 0 08/14/2021 Active (Tums) 200 mg mouth 2 times daily calcium (500 mg) (with meals). Tablet, Chewable cholecalciferol, Take 1 tablet by 90 tablet 3 08/15/2021 Active Vitamin D3, mouth daily. (Vitamin D3) 1,000 unit Tablet HYDROmorphone Take 0.5 tablets by 20 tablet 0 08/28/2021 Active (Dilaudid) 2 mg mouth every 4 hours TabletIndications: as needed for Pain Closed fracture of (Take 0.5mg every 4-6 right hip, initial hours PRN). encounter oxyCODONE Take 1 tablet by 20 tablet 0 09/14/2021 Ac tive (Roxicodone) 5 mg mouth every 8 hours TabletIndications: as needed for Pain. Closed fracture of right hip with routine healing, subsequent encounter Active Problems Problem Noted Date Right femoral neck fracture 08/05/21 08/06/2021 Severe protein-calorie malnutrition 06/29/2020 Overview: < or equal to 50% of estimated energy ne eds for > or equal to 1 month and >10% weight loss in 6 months is consistent with severe protein-calorie malnutrition in the setting of social or environ mental circumstances (Audi penn al, JPEN J Parenteral Enteral Nutr. 2011; 36(3): 273-83) Hypoxia 06/28/2020 Postoperative anemia due to acute blood loss 9 Chronic respiratory failure with hypoxia 11/20/2018 Hypotension 11/18/2018 Chest pain 09/25/2018 Resolved Problems Problem Noted Date Resolved Date Acute upper GI bleed 11/20/2018 11/20/2018 Immunizations Name Administration Dates Next Due Influenza Vaccine PF, Quadrivalent 03/17/2020 Family History Medical History Relation Comments Asthma Brother Relation Status Comments Brother Social History Tobacco Use Types Packs/Day Years Used Date Never Smoker Smokeless Tobacco: Never Used Alcohol Use Standard Drinks/Week Comments Yes 1 (1 standard drink = 0.6 oz pure alcoho l) Difficult to assess Alcohol Habits Answer Date Recorded How often do you have a drink containing alcohol? Not asked How many drinks containing alcohol do you have on a Not aske d typical day when you are drinking? How often do you have six or more drinks on one Not asked occasion? Comment: Difficult to assess 06/28/2020 Sex Assigned at Date Recorded Not on file Last Filed Vital Signs Vital Sign Reading Time Taken Comments Blood Pressure 136/84 09/04/2021 1:06 PM EDT Pulse 97 09/04/2021 1:06 PM EDT Temperature 36.1 ??C (97 ??F) 08/14/2021 12:08 PM EDT Respiratory Rate 22 08/14/2021 12:08 PM EDT Oxygen Saturation 100% 08/14/2021 12:08 PM EDT Inhaled Oxygen Concentration - - Weight 43.1 kg (95 lb) 09/04/2021 1:06 PM EDT Height 160 cm (5' 3) 09/04/2021 1:06 PM EDT Body Mass Index 16.83 09/04/2021 1:06 PM EDT Plan of Treatment Health Maintenance Due Date Last Done Comments Covid-19 Vaccine (#1) 1965 HIV screen 1978 Hepatitis C Screening 1978 Tdap adult 11/01/1979 Tetanus vaccine 11/01/1979 HPV test 1990 PAP Smear 1990 Breast Cancer Share Decision Needed 2000 Colonoscopy 2005 Breast Cancer screening 2010 Zoster vaccine (1 of 2) 2010 Advance Directive 11/01/2015 Influenza (Flu) vaccine (1 of 1 - Influenza standard 01/18/2022 03/17/2020 series) Medical Devices Implanted Type Area Reference Library Assistant Device Identifier Shelf Model / Expiration Serial / Date Lot Head Femoral Hip 32mm Med 0mm Offset Tpr Ceramic ([id number]) (Autoreq) - [id number] IMPLANTS Right: [employer] [facility] - [id number] 01/26/2026.29.2 05 / Implanted: Qty: 1 on 08/06/2021 by Dusty Peterson MD at [facility] Hip [employer] / [id number] Insurance Payer Benefit Plan / Subscriber ID Effective Dates Phone Addre ss Type Group [employer] WELL[employer]ARE [id number] 2021-Jasmin [phone] [address] MANA[address]ED MANAGED t 0 [place], [place] MEDICARE MEDICARE PPO [id number] Advance Directives Latest Code Status on File Code Status Date Activated Date Inactivated Comments Attempt Cardiopulmonary Resuscitation - 08/06/2021 1:31 AM 022 4:16 PM Inpatient Code Status decision made by: Patient Attempt Cardiopulmonary Resuscitation - 06/28/2020 2:55 AM 07/01/19 21 8:54 PM Inpatient Code Status decision made by: Patient Full Code 11/18/2018 4:33 PM 11/20/2018 5:05 PM Does patient have capacity to make decision: Yes Care Teams Manager Desktop Relationship Specialty Start Date End Date Magdalene Lin PA PCP - General 09/05/[address] [place] [address]
--- OUTSIDE RECORDS SUMMARY | 2022-02-10 06:07 | XMS_ITS | Encounter Summary ---
:1960 Author Organization [facility] [place] [address] Care Team Providers Name Role Phone Magdalene Lin Primary Care Provider [phone] Reason for Referral Home Health Care (Routine) - Closed Specialty Diagnoses / Procedures Referred By Contact Refer red To Contact Diagnoses Closed fracture of right hip, initial encounter Dusty Peterson MD Home [facility] & H[facility], [facility] Kristian Hopkins [place] [facility] [address] [place] [address] [place] [address] [place] [address] Phone: Fax: Referral ID Status Reason Start Date Expiration Date Visits V isits Requested Authorized [id number] Closed Consult, 08/24/2021 02/20/2022 [id number] Test & Treat Reason for Visit Reason Onset Date Comments Referral 08/18/2021 Encounter Details Date Type Department Care Team Description 08/18/2021 Telephone Orthopaedics at [facility] Dusty Peterson MD Referral [facility] jass [facility] [place] [address] ORTHOPAEDIC SURGERY [phone] [place], [place] [address] (Wo rk) Social History Tobacco Use Types Packs/Day Years [...] Assigned at Date Recorded Not on file documented as of this encounter Miscellaneous Notes Telephone Encounter - Jay Kaye - 08/24/2021 1:52 PM EDT Juliano called back and said they have not been able to contact the patient after trying several timesso she is assuming the home care is not needed. Sending to team as fyi. Telephone Encounter - Aurelia Obrien - 08/24/2021 1:13 PM EDT Who is calling: Fernie - certified legal secretary specialist @ [facility] Best call back number: [phone], ext [phone] Best time to call back between 8:00 am & 5:00 pm: any time Can we leave a message? yes Where do they have their PT/OT? [facility] Therapy Office Therapy Office What they need: Fernie calls from [facility] to state she received a cover sheet with a paper that only has the patient's name, and PCP at the top and nothing else. She needs our office to fax the following: - Home Health Referral - Home Health Orders - Op Note & Discharge - Demographics page I have faxed the above requested items to the correct fax # provided. Telephone Encounter - Daljit Evans - 08/24/2021 10:32 AM EDT Orders placed and faxed today. Telephone Encounter - Caty Gaona - 08/24/2021 10:14 AM EDT Who is calling: [place] Have you had Surgery?yes If so when?08/06/2021 Who was the Surgeon?Dr. Peterson What is the question: Looking to get a new home health referral sent to [facility] Best number to reach the caller: [phone] Fax number: Telephone Encounter - Caty Gaona - 08/18/2021 8:17 AM EDT Who is calling: May with [facility] What is the question: Got referral for physical therapy. They have tried to reach out by phone and have gone to patients home with no success. They have the cancel the referral. Please advise Best number to reach the caller: [phone] Ext. [phone] documented in this encounter Plan of Treatment Scheduled Referrals Name Type Priority Associated Diagnoses Order S chedule Referral to Home Outpatient Referral Routine Closed fracture o f Ordered: Health - Clinic right hip, initial 2021 Use encounter documented as of this encounter Visit Diagnoses Diagnosis Closed fracture of right hip, initial en counter documented in this encounter Care Teams Stamp Collector Relationship Specialty Start Date End Date Magdalene Lin PA PCP - General 09/05/[address] [place] [address] documented as of this encounter
--- OUTSIDE RECORDS SUMMARY | 2022-02-10 06:07 | XMS_ITS | Encounter Summary ---
:1960 Author Organization [facility] [place] [address] Care Team Providers Name Role Phone Magdalene Lin Primary Care Provider [phone] Reason for Visit Reason Onset Date Comments Medication Refill 09/07/2021 Encounter Details Date Type Department Care Team Description 09/07/2021 Refill Orthopaedics at [place] Sofy Sheldon RN Closed fracture of right Hospital hip, initial encounter [address] [place] [address] Social History Tobacco Use Types Packs/Day Years [...] this encounter Miscellaneous Notes Telephone Encounter - Tenisha Momin RN - 09/08/2021 8:46 AM EDT Patient left a message on the refill line evening at 1653 requesting a refill on Dilaudid. A call was placed back to the patient this morning, LVM informing her of the change in medication andthat a new script was sent to her local [facility] in [place], [place]. Telephone Encounter - Sofy Sheldon RN - 09/07/2021 3:42 PM EDT Images from the original note were not included. We will be switching to Oxycodone after this prescription -Bre Ramirez PA-C Medication Refill Request Surgery/Injury/Provider: 08/06/21 Dr. Peterson Right Posterior JACKSON Medication being requested: Dilaudid 2mg with switch to Oxycodone Query: Last refill or Original Rx: Seen within 30 days (if no, than when): Follow Up: none How is this medication being used currently: 0.5 tab every 4 hours Pain level: 7-8/10 Bowel concerns: None Other pain medications used and how: Tylenol Yes, 1000mg every 4 hours Gabapentin Yes, 300mg every night Naproxen No OTHER Medication Taper Plan: Taper to the lowest effective maintenance dose, though as the patient is still expressing a higher rate of pain we will write this script for every 4-6 hours PRN. Discussed with the patient that we would really like for her to work on pushing to every 6 hours PRN. We also discussed saefty with Tylenol use and how she should either take one 500mg tablet every 4 hours or she should take two 500mg tablets every 8 hours. Continue additional scheduled pain medication along with RICE. Teaching done regarding: taking nonnarcotic pain medications, taking the least amount of opioid needed for the least amount of time for adequate pain management and tapering of opioids with verbalized understanding by the patient. Requested Prescription to be sent electronically to [facility] of [place], [place] (location). Prescription prepped and pended for FRANCE Musa (provider) review. The patient knows how to contact orthopaedics if any further questions or concerns occur. documented in this encounter Plan of Treatment Not on filedocumented as of this encounter Visit Diagnoses Diagnosis Closed fracture of right hip, initial en counter documented in this encounter Care Teams Head Neck Surgeon Relationship Specialty Start Date End Date Magdalene Lin PA PCP - General 09/05/[address] [place] [address] documented as of this encounter
--- OUTSIDE RECORDS SUMMARY | 2022-02-10 06:07 | XMS_ITS | Encounter Summary ---
:1960 Author Organization [facility] [place] [address] Care Team Providers Name Role Phone Magdalene Lin Primary Care Provider [phone] Reason for Visit Reason Onset Date Comments Medication Refill 08/28/2021 Encounter Details Date Type Department Care Team Description 08/28/2021 Refill Orthopaedics at [facility] Tenisha Momin Closed fracture of right [facility] D jass Francois RN hip, [place] [address] Social History Tobacco Use Types Packs/Day Years [...] Telephone Encounter - Tenisha Momin RN - 08/28/2021 8:43 AM EDT Images from the original note were not included. We will be switching to Oxycodone after this prescription -Bre Ramirez PA-C Medication Refill Request Surgery/Injury/Provider: 08/06/21 Dr. Peterson Right Posterior JACKSON Medication being requested: Dilaudid 2mg Query: Last refill or Original Rx: Seen within 30 days (if no, than when): Follow Up: 09/04/21 FRANCE Musa How is this medication being used currently: [...] Requested Prescription to be sent electronically to [facility] of [place], [place] (location). Prescription prepped and pended for FRANCE Musa (provider) review. The patient knows how to contact orthopaedics if any further questions or concerns occur. documented in this encounter Plan of Treatment Not on filedocumented as of this encounter Visit Diagnoses Diagnosis Closed fracture of right hip, initial en counter documented in this encounter Care Teams African History Professor Relationship Specialty Start Date End Date Magdalene Lin PA PCP - General 09/05/[address] [address] documented as of this encounter
--- OUTSIDE RECORDS SUMMARY | 2022-02-10 06:07 | XMS_ITS | Encounter Summary ---
:1960 Author Organization [facility] Address [address] [place] [address] Care Team Providers Name Role Phone Magdalene Lin Primary Care Provider [phone] Encounter Details Date Type Department Care Team Description 09/04/2021 Hospital Encounter XRay at [facility] Trung Gorman Closed fracture of [address] Priscila MD right hip, initial [place], [place] [facility] [id number] [facility] [phone] [place] [address] Social History Tobacco Use Types Packs/Day Years [...] on file documented as of this encounter Medications at Time of Discharge Medication Sig Dispensed Refills Start Date End Date HYDROmorphone Take 0.5 tablets by 20 tablet 0 08/28/2021 (Dilaudid) 2 mg mouth every 4 hours as TabletIndications: needed for Pain (Take Closed fracture of 0.5mg every 4-6 hours right hip, initial PRN). encounter acetaminophen Take 2 tablets by mouth 0 2 (Tylenol) 500 mg every 8 hours. Continue Tablet the Tylenol around the clock for 10 days after surgery, (08/16/21). Then may take if needed per package insert. Do not take more than 3,000 mg of Tylenol in 24 hours. polyethylene glycoL Take 17 g by mouth 2 0 2021 (Miralax) 17 gram times daily. Powder in Packet gabapentin Take 1 capsule by mouth 90 capsule 1 08/14/2021 (Neurontin) 300 mg 3 times daily. Capsule calcium carbonate Take 1 tablet by mouth 0 2021 (Tums) 200 mg calcium 2 times daily (with (500 mg) Tablet, meals). Chewable cholecalciferol, Take 1 tablet by mouth 90 tablet 3 022 Vitamin D3, (Vitamin daily. D3) 1,000 unit Tablet albuteroL 90 INHALE 2 PUFFS BY MOUTH 0 08/03/2021 mcg/actuation HFA FOUR TIMES A DAY Aerosol Inhaler NEEDED albuteroL (Proventil) INHALE 1 VIAL VIA 0 022 2.5 mg /3 mL (0.083 NEBULIZER EVERY 4 HOURS %) Solution for NEEDED FOR Nebulization BRONCHOSPASMS Breztri Aerosphere 0 07/24/2021 160-9-4.8 mcg/actuation HFA Aerosol Inhaler busPIRone (Buspar) 5 0 07/31/[address] TAKE ONE (1) CAPSULE BY 0 2 (Cymbalta) 60 mg MOUTH ONCE DAILY FOR Capsule, Delayed MOOD Release(E.C.) EPINEPHrine 0.3 INJECT 1 SYRINGE 0 04/18/2021 mg/0.3 mL INTRAMUSCULARLY Auto-Injector NEEDED FOR ANAPHYLAXIS -PLEASE CONTACT PATIENT TO VERIFY IF NEEDED PRIOR TO FILLING- potassium chloride ER TAKE 1 TABLET BY MOUTH 0 (K-Dur/Klor-Con) 20 TWICE DAILY mEq Tab Sust.Rel. Particle/Crystal traZODone (Desyrel) Take 50 mg by mouth 0 021 50 mg Tablet nightly. multivitamin Take 1 tablet by mouth 30 tablet 12 11/20/2018 (THERAGRAN) Tablet daily. metoprolol tartrate Take 1 tablet by mouth 180 tablet 0 10/2018 (LOPRESSOR) 25 mg 2 times daily. Tablet Sirolimus 2 mg Tablet Take 2 mg by mouth 1 2018 daily. simvastatin (ZOCOR) Take 20 mg by mouth 1 019 20 mg Tablet daily. CIS Free Text Med - 1 Puff(s), Inh, 0 06/08/2008 Albuterol Q4-6H,PRN enoxaparin (Lovenox) Inject 0.3 mLs 6.9 mL 0 08/14/2021 09/06/2021 30 mg/0.3 mL Syringe subcutaneously daily for 23 days. documented as of this encounter Plan of Treatment Not on filedocumented as of this encounter Procedures Procedure Name Priority Date/Time Associated Diagnosis Comme nts XR PELVIS AND HIP 2 Routine 09/04/2021 11:43 AM Closed fractur e of Results for this VIEWS RIGHT EDT right hip, initial procedure are in encounter the results section. documented in this encounter Results XR Pelvis and Hip 2 Views Right (09/04/2021 11:43 AM EDT) Anatomical Region Laterality Modality Pelvis, Hip Right Digital Radiography Specimen (Source) Anatomical Location Collection Method / Collectio n Time Received Time / Laterality Volume Impressions 09/04/2021 1:55 PM EDT Recently placed uncomplicated Right total hip arthroplasty with unchanged alignment. I have personally reviewed the image(s) and the resident's interpretation and agree with the findings, Indu Fortune MD at 09/04/2021 1:55 PM Thank you for letting us participate in the care of this patient. ??If you are a health care provider and have any questi ons regarding this report, please contact the number below. ??For patients who have questions please contact the health foster care worker that requested your imaging first. ? Narrative 09/04/2021 1:55 PM EDT EXAMINATION: XR PELVIS AND HIP 2 VIEWS RIGHT CLINICAL HISTORY: femoral neck fracture s/p right cemented JACKSON - pleaes evaluate 4 week follow up TECHNIQUE: AP pelvis and AP and lateral frog leg vi ews of the right hip. COMPARISON: Pelvic radiograph dated 08/06/2021 FINDINGS: Recently placed right total hip arthropl asty with unchanged alignment. No periprosthetic fracture. Left hip joint space is preserved. No pubic symphysis widening. Procedure Note Indu Fortune MD - 09/04/2021Formatt ing of this note might be different from the original. EXAMINATION: XR PELVIS AND HIP 2 VIEWS R IGHT CLINICAL HISTORY: femoral neck fracture s/p right cemented JACKSON - pleaes evaluate 4 week follow up TECHNIQUE: AP pelvis and AP and lateral frog leg vi ews of the right hip. COMPARISON: Pelvic radiograph dated 08/06/2021 FINDINGS: Recently placed right total hip arthropl asty with unchanged alignment. No periprosthetic fracture. Left hip joint space is preserved. No pubic symphysis widening. IMPRESSION Recently placed uncomplicated Right tota l hip arthroplasty with unchanged alignment. I have personally reviewed the image(s) and the resident's interpretation and agree with the findings, Indu Fortune MD at 09/04/2021 1:55 PM Thank you for letting us participate in the care of this patient. If you are a health care provider and have any questi ons regarding this report, please contact the number below. For patients w ho have questions please contact the health foster care worker that requested your imaging first. Trung Gorman MD IMG DX ORDERABLES documented in this encounter Visit Diagnoses Diagnosis Closed fracture of right hip, initial en counter documented in this encounter Care Teams Commercial Real Estate Agent Relationship Specialty Start Date End Date Magdalene Lin PA PCP - General 09/05/[address] [place] [address] documented as of this encounter
--- OUTSIDE RECORDS SUMMARY | 2022-02-10 06:08 | XMS_ITS | Encounter Summary ---
:1960 Author Organization [facility] [place] [address] Care Team Providers Name Role Phone Magdalene Lin Primary Care Provider [phone] Reason for Referral Consultation (Routine) - Closed Specialty Diagnoses / Procedures Referred By Contact Refer red To Contact Endocrinology Diagnoses Closed fracture of right hip, initial encounter Vicky Thapa MD [facility] 3b [facility] D R [facility] [place] [address] [place] [address] Referral ID Status Reason Start Date Expiration Date Visits V isits Requested Authorized [id number] Closed Consult, 08/09/2021 08/09/2022 1 1 Test & Treat Reason for Visit Auth/Cert Specialty Diagnoses / Procedures Referred By Contact Refer red To Contact Diagnoses Hip fracture hip fx Procedures emergency ipi Referral ID Status Reason Start Date Expiration Date Visits Requ ested Visits Authorized [id number] 1 1 Encounter Details Date Type Department Care Team Description 08/06/2021 - Hospital Encounter 3 Jaya Delgado MD [facility] [place] [address] Closed fracture of right hip, initial en counter (Primary Dx); 08/14/2021 [facility] [place] [address] Chronic respiratory failure with hypoxia [facility] [place] [address] [facility] [place] [address] [place] [id number] Social History Tobacco Use Types Packs/Day Years [...] on file documented as of this encounter Last Filed Vital Signs Vital Sign Reading Time Taken Comments Blood Pressure 148/91 08/14/2021 12:08 PM EDT Pulse 96 08/13/2021 3:51 AM EDT Temperature 36.1 ??C (97 ??F) 08/14/2021 12:08 PM EDT Respiratory Rate 22 08/14/2021 12:08 PM EDT Oxygen Saturation 100% 08/14/2021 12:08 PM EDT Inhaled Oxygen Concentration - - Weight 47.9 kg (105 lb 11.2 oz) 08/08/2021 9:00 PM EDT Height 160 cm (5' 3) 08/08/2021 9:00 PM EDT Body Mass Index 18.72 08/08/2021 9:00 PM EDT documented in this encounter Discharge Summaries Jenise David MD - 08/14/2021 12:54 PM EDT Images from the original note were not included. Inpatient - Discharge Summary Patient Name: Paradise Abel Patient Age: 60 y.o. Birthdate: 1960 Admit date: 08/06/2021 Discharge date and time: 08/14/2021 Attending Physician: Jenise David MD Code Status: Full Code ID: Paradise Abel is a 60 y.o. 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 Patient was found to have delirium tremens likely in the setting of alcohol use. Please continue to recommend abstinence from alcohol. 2. Outpatient referral to [facility] due to fragility fracture. 3. Patient's home diuretic was stopped due to contraction alkalosis. Please evaluate whether patientrequires furosemide. Discharge Diagnoses (Hospital Problems) and Secondary Diagnoses (Chronic Problems): Active Hospital Problems Diagnosis ??? Right femoral neck fracture 08/05/21 ??? Postoperative anemia due to acute blood loss ??? Chronic respiratory failure with hypoxia Resolved Hospital Problems No resolved problems to display. Active Non-Hospital Problems Diagnosis ??? Severe protein-calorie malnutrition < or equal to 50% of estimated energy needs for > or equal to 1 month and >10% weight lossin 6 months is consistent with severe protein-calorie malnutrition in the setting of social or environmental circumstances (Derek, JPEN J Parenteral Enteral Nutr. 2012 September; 36(3): 273-83) ??? Hypoxia ??? Hypotension ??? Chest pain Procedures: Operations: Procedure(s): TOTAL HIP ARTHROPLASTY - POSTERIOR (WRVU 20.72) MODIFIER,QUADRA C (CEMENTED) TAMELA HIP STEM,MEDACTA Other Major Procedures: History of Presentation (per 08/06/2021 Admission H&P): Paradise Abel is a 60 y.o. 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 Initially presented to [facility] and transferred to [facility] for management. No other injuries. CT head/c-spine and C/A/P done at [facility] due to ethanol detected on screen and concern for additional injuries. These studies, in addition to CXR and UA were negative. Patient states she lives alone, was moving into a new apartment when she tripped over a box yesterday morning sustaining a right femoral neck fracture. ??She noted immediate pain to her right hip and was able to ambulate a very short distance to her kitchen table sat there for a while waiting for painto subside however when it did not subside after several hours she did call an ambulance and was taken to [facility]. ??She denies any alcohol use that morning however did drink alcohol the night before. ??She states she drinks alcohol 2-3 nights a week however not daily. ??In reviewing back in her chart however she does have a history of ETOH use disorder previously requiring a phenobarb protocol for with drawal symptoms in June of 2020. ??Denies IV drug use, non-smoker. ??Not on any blood thinners. ??Ambulates independently without assistive devices. ??Denies any premorbid hip pain in the side. ??Will be evaluated by Hospital Medicine and if no interventions recommended medically, will plan toproceed to OR today. Given the displaced nature of this fracture pattern, discussed at length with the patient the need for surgical intervention given the immobility that would result from nonoperative management that would render her bedbound.?Discussed surgical options and signed consent for total hip arthtroplasty at this time but will discuss as operative team this morning and come up with optimal surgical plan for her. Hospital Course: Paradise Abel was admitted to the Medicine Service on 08/06/2021 in stable condition. The following issues were addressed during this admission and she was discharged on 08/14/2021 1. Right FNF s/p right JACKSON: Paradise Abel was admitted from the Emergency Department from [facility] for evaluation and treatment of the above injury. On HD#1 she was taken to surgery for the above procedure. She tolerated the procedure and her post-op course is as follows. On POD#1 the patient was started on oral pain medicationsand was comfortable after adjustments were made.. The patient was referred to Physical and Occupational Therapy for mobility training - weight bearing as tolerated of right leg. Hgb 12.4 to 10.6 with operative acute blood loss anemia. ?? 2. Acute on chronic hypoxic and hypercarbic respiratory failure LIkely chronic diastolic CHF on lasix. The patient continued on usual home oxygen - ~4L/m per nasal cannula. Goal to keep 02 sat greater than 88%. When up out of bed ambulating, 02 sat 70s - 80s on 4L/m but recovered at rest. Symbicort, duonebs Q 4 prn, prednisone and sirolimus were continued. Patient was more somnolent on 08/13/2021 and VBG demonstrated 7.33/75/39, suggesting chronic hypercarbia. Patient was briefly on BiPAP with sleep but was not able to tolerate it for more than 1 hour and mentation remained stable afterwards. Patient was discharged off of diuretics due to concern that she was overdiuresed, leading to worse hypercarbia. ?? 3. Alcohol withdrawal: She as noted to be seeing bugs moving on ceiling but no other hallucinations.PRN Dilaudid dose decreased. Continued to be monitored with CIWA scale, scoring ~3. Became more disoriented restless, agitated at times, attempting to get out of bed, not able to redirect. [id number] on CIWA and transferred to Medicine about 72 hrs from last drink suggesting DTs. Placed on standing ativan which was weaned and continued on CIWA. Patient was discharged after she finished withdrawal. Important Studies and Lab Data: Recent Labs 08/14/21 0339 08/13/21 0345 08/12/21 0940 WBC 9.2 9.1 9.7* HGB 9.1* 9.3* 9.6* HCT 29.6* 29.6* 29.4* PLATELET 490* 491* 462* Recent Labs 08/14/21 0339 08/13/21 0345 08/12/21 0940 08/11/21 1810 08/11/21 0824 08/09/21 1713 08/09/21 0822 NA 142 139 137 -- 136 < > 134* K 4.5 4.4 3.6 -- 3.6 < > 3.9 CL 96* 92* 93* -- 94* < > 99 CO2 34* 39* 34* -- 34* < > 27 BUN 12 14 12 -- 7* < > 9 CREATININE 0.59* 0.52* 0.56* -- 0.38* < > 0.53* MAGNESIUM -- -- -- -- -- -- 0.74 PHOS -- 3.9 -- 4.6* 2.6 < > 1.6* < > = values in this interval not displayed. Microbiology: SARS-CoV-2 RNA PCR negative Pertinent radiology/diagnostic studies: XR Pelvis (Generic) Result Date: 08/06/2021 EXAMINATION: XR PELVIS (GENERIC) CLINICAL HISTORY: s/p right JACKSON - please obtain single AP view in PACU TECHNIQUE: 1 views of the pelvis COMPARISON: Preoperative study from 08/05/2021 FINDINGS: Post RIGHT total hip arthroplasty since the previous study. No radiographic evidence of complication. Post RIGHT total hip arthroplasty since the previous study. No radiographic evidence of complication. Discharge Conditions/Prognosis: Upon discharge the pt is hemodynamically stable, fully ambulatory requiring supplemental oxygen, holding down food/drink, afebrile and pain controlled with stable oral regimen. Discharge to: home with services Discharge Medications: Your Medications New Medications Dose Details acetaminophen 500 mg Tab Commonly known as: Tylenol Take 2 tablets by mouth every 8 hours. Continue the Tylenol around the clock for 10 days after surgery, (08/16/21). Then may take if needed per package insert. Do not take more than 3,000 mg of Tylenol in 24 hours. 1,000 mg Refills: 0 calcium carbonate 200 mg calcium (500 mg) Chew Commonly known as: Tums Take 1 tablet by mouth 2 times daily (with meals). 500 mg Refills: 0 cholecalciferol (Vitamin D3) 1,000 unit Tab Commonly known as: Vitamin D3 Take 1 tablet by mouth daily. Start taking on: August 15, 2021 1,000 Units Quantity: 90 tablet Refills: 3 enoxaparin 30 mg/0.3 mL Syrg Commonly known as: Lovenox Inject 0.3 mLs subcutaneously daily for 23 days. 30 mg Quantity: 6.9 mL Refills: 0 gabapentin 300 mg Cap Commonly known as: Neurontin Take 1 capsule by mouth 3 times daily. 300 mg Quantity: 90 capsule Refills: 1 HYDROmorphone 2 mg Tab Commonly known as: Dilaudid Take 0.5 tablets by mouth every 4 hours as needed for Pain. 1 mg Quantity: 20 tablet Refills: 0 polyethylene glycoL 17 gram Pwpk Commonly known as: Miralax Take 17 g by mouth 2 times daily. 17 g Refills: 0 senna-docusate 8.6-50 mg Tab Commonly known as: Pericolace Take 2 tablets by mouth 2 times daily. 2 tablet Refills: 0 Continued medications, unchanged Dose Details * albuteroL 2.5 mg /3 mL (0.083 %) Nebu Commonly known as: Proventil INHALE 1 VIAL VIA NEBULIZER EVERY 4 HOURS NEEDED FOR BRONCHOSPASMS Refills: 0 * albuteroL 90 mcg/actuation Hfaa INHALE 2 PUFFS BY MOUTH FOUR TIMES A DAY NEEDED Refills: 0 Breztri Aerosphere 160-9-4.8 mcg/actuation Hfaa Generic drug: vpyeopwnve-sxoxrtio-abmbkofcds Refills: 0 busPIRone 5 mg Tab Commonly known as: Buspar Refills: 0 CIS FREE TEXT MED 1 Puff(s), Inh, Q4-6H,PRN Refills: [address] 60 mg Cpdr Commonly known as: Cymbalta TAKE ONE (1) CAPSULE BY MOUTH ONCE DAILY FOR MOOD Refills: 0 EPINEPHrine 0.3 mg/0.3 mL Atin INJECT 1 SYRINGE INTRAMUSCULARLY NEEDED FOR ANAPHYLAXIS -PLEASE CONTACT PATIENT TO VERIFY IF NEEDED PRIOR TO FILLING- Refills: 0 metoprolol tartrate 25 mg Tab Commonly known as: Lopressor Take 1 tablet by mouth 2 times daily. 25 mg Quantity: 180 tablet Refills: 0 multivitamin Tab Commonly known as: THERAGRAN Take 1 tablet by mouth daily. 1 tablet Quantity: 30 tablet Refills: 12 potassium chloride ER 20 mEq Tbtq Commonly known as: K-Dur/Klor-Con TAKE 1 TABLET BY MOUTH TWICE DAILY Refills: 0 predniSONE 10 mg Tab Commonly known as: Deltasone TAKE 1 TABLET BY MOUTH ONCE DAILY Refills: 0 simvastatin 20 mg Tab Commonly known as: Zocor Take 20 mg by mouth daily. 20 mg Refills: 1 Sirolimus 2 mg Tab Commonly known as: Rapamune Take 2 mg by mouth daily. 2 mg Refills: 1 traZODone 50 mg Tab Commonly known as: Desyrel Take 50 mg by mouth nightly. 50 mg Refills: 0 * This list has 2 medication(s) that are the same as other medications prescribed for you. Read thedirections carefully, and ask your doctor or other care provider to review them with you. STOPPED Medications furosemide 40 mg Tab Commonly known as: Lasix sertraline 100 mg Tab Commonly known as: ZOLOFT Updated Allergies/ADRs: Allergies Allergen Reactions ??? Hymenoptera Allergenic Extract Anaphylaxis Instructions Given to Patient at Discharge: Patient Instructions Orthopedic Surgery Discharge Instructions You were found to have a broken bone likely in the setting of your chronic prednisone use. You have been referred to endocrinology as an outpatient. You were also found to have confusion likely in the setting of withdrawal from alcohol. It is recommended that you abstain from all alcoholic beverages at this time. You have a follow-up appointment with your PCP on 08/22/2021 at 10:45AM Activity: 1. Your weight-bearing status is - weight bearing as tolerated of right leg. 2. Remember to use a walker or crutches as needed for balance and protection. Your physical therapist may progress you to using a cane when appropriate. 3. Remember your hip precautions: Standard: You should transition from sit to stand and stand to situtilizing a broad based stance with feet and knees wider than hips. Anticoagulation: You have been discharged on Lovenox injections (30mg daily) for 30 days. This injection will help decrease your chance of developing a blood clot. After your dose on 09/05/21, stop the Lovenox. Diet: Resume your usual diet but increase your intake of fluids and fiber while you are on narcotic pain meds to prevent constipation. You should abstain from all alcoholic beverages at this time Driving: None until you are cleared to do so by your Orthopedic surgeon. You should not drive while you are on narcotic pain meds as they can affect your judgment and reaction time. Call your surgeon with any questions/concerns. Medications: 1. The pain medication you are on can cause constipation so increase your intake of fluids and fiberwhile you are on them. The stool softener, Pericolace, that has been prescribed can also be taken tofacilitate a bowel movement. You can also take an owrl-rkc-glutzes medication, Miralax if needed to combat constipation. 2. If you need a renewal on your narcotic pain medication, you need to give the Orthopedic clinic enough time to process your request. This can take up to three days, so plan accordingly. 3. Continue acetaminophen (Tylenol) 1,000mg every 8 hours as needed for pain for 10 days after surgery (08/16/21). This can be effective in controlling pain along with your other medications. After thatyou can take Tylenol as needed per package insert. Do not take more than 3,000mg of acetaminophen davion 24 hour period. 4. You have been discharged on a short acting narcotic, hydromorphone (Dilaudid). You will be on this medication for a limited period of time only. Take the smallest dose possible to control your pain.As your pain improves take smaller, less frequent doses. You may break the tablet to achieve a smaller dose. 5. You were prescribed Lidoderm patches in the hospital to help reduce pain. You may purchase a similar item over the counter (Salonpas 4%) and use per package insert. Shower (internal sutures): 1. You can shower but remember your activity limitations and always have a chair available for balance and protection. DO NOT submerge the dressing/incision. 2. (Mepilex) Do not let water run over the operative dressing. If it becomes wet lightly pat the dressing dry. DO NOT submerge the incision. When this operative dressing is removed you can let water gently run over the incision. Wound (Mepilex): 1. You do NOT have any external gabbie or sutures in place. Your sutures are internal and will be absorbed over time. 2. You have a Mepilex dressing in place. Do not lift the edge of the Mepilex dressing to inspect theincision, it will not re-adhere. Remove your operative dressing 7 days after your surgery (08/13/21).When it is removed you can leave the incision open to air or cover it with a light dressing. 3. If you have lots of drainage when you get home (and it is before 08/13/21), remove the operative dressing and replace it with dry sterile gauze. Continue with daily dressing changes (and as needed) until the drainage stops, then remove the dressing and leave the incision open to air or lightly covered. Misc: Remember that ICE and elevation are very important after surgery to help decrease swelling andcontrol pain. Use ICE for 20-30 minutes at a time and keep your leg elevated as much as possible. Call your doctor ([phone]) if you develop: 1. Fever greater than 100.5 2. Severe nausea or vomiting 3. Increasing pain that is not controlled by pain medications 4. Increasing redness, swelling, or drainage from incisions 5. Change in sensation FOLLOW-UP APPOINTMENTS: 1. You will have follow-up appointments at [facility] as indicated below in Future Appointment and Orders. 2. You will need to have x-rays prior to your follow-up appointment on 09/04/21. Please come to Radiology, desk , 1 hour BEFORE that appointment for these x-rays. Future Appointments Date Time Provider Department Center 09/04/2021 11:30 AM [facility] DX ROOM 2 MH Xray [facility] Rad 09/04/2021 1:00 PM Bre Ramirez PA [facility] ORTH 3A [facility] If you have questions or concerns: Saturday through Saturday, 8 AM - 5 PM, you can call orthopedic at . For questions regarding this document or issues relating to this hospitalization on the Medical Service, please contact your inpatient physician through the [facility] [employer] . Issues after hours and on weekends will be handled by the Hospitalist staff on-call. General Instructions YOU ARE SCHEDULED FOR A FOLLOW UP APPOINTMENT WITH YOUR PRIMARY CARE PROVIDER, ON 08/22/2021 AT 10:45AM Future Appointments and Orders Future Appointments and Orders Future Appointments Provider Department Dept Phone 09/04/2021 11:30 AM [facility] DX ROOM 2 XRay at [facility] Arrive at: [facility] [phone] Please go to [facility] ([place] Location). 09/04/2021 1:00 PM Bre Ramirez PA Orthopaedics at [facility] Arrive at: [facility] [phone] Future Orders Complete By Expires XR Pelvis and Hip 2 Views Right [[id number] Custom] 09/06/2021 03/08/2022 Process Instructions: Scheduling Instructions: Comments: Questions: Where will study be performed?: [facility] Radiology Portable exam?: Reason for exam and clinical history: femoral neck fracture s/p right cemented JACKSON - pleaes evaluate 4 week follow up Clinical information / mendoza questions for radiologist: Stat read required?: Date of injury if applicable: Requested Time: Referral to Endocrinology [REF22 Custom] As directed Process Instructions: If no progress note charted, please enter Clinical details in comments. Scheduling Instructions: Questions: My question or request is: Assess for osteoporosis in the setting of fragility fracture (GLF with hip fracture) Specialist Level of Involvement: Consult until Stable Is patient being referred for thyroid nodule?: No Referral to Home Health - at DISCHARGE [[id number] CPT(R)] As directed Process Instructions: Scheduling Instructions: Comments: DOCUMENTATION FOR VNA SERVICES (INCLUDING THOSE PATIENTS WITH MEDICARE COVERAGE REQUIRING HOME VNA SERVICES AND/OR HOSPICE SERVICES) Paradise Abel Discharge to own home: [address] [place] [address] Mobile Not on file. [employer] Teacher's Name: Paradise In discussion with the attending physician, it is certified that this patient is under their care and that they, or a nurse practitioner, clinical nurse specialist or physician's finance assistant who is working directly with them, had a face to face encounter that meets the physician face to face encounter re quirements with this patient on 08/07/2021 The encounter with the patient was in whole, or in part, for the following medical condition, which is the primary reason for home health care services: right femoral neck fracture - right JACKSON 08/06/21 In discussion with the provider, it is certified that, based on their findings, the following services are medically necessary for home health services. To provide the following care/treatments with the clinical findings supporting the need for servicesas follows: Home Health Agency: [facility]. PHONE: [phone] FAX: [phone] Home care orders for Total Hip Replacements: Anterior approach (RN +/or PT) Do not lift the edge of the mepilex dressing to observe the incision; this dressing needs to stay inplace until 7 days after surgery. RN: Assess wound/incision, pain management, medication effectiveness and management, elimination, nutrition Chronically on oxygen ~4L/m per nasal cannula. Monitor for safety. PT: Continue PT rehab for balance, endurance, joint mobility, ROM, Strength, Total Hip Arthroplastyexercise and restriction protocol If PT services only then please refer for Intermediate(SN) eval if indicated on admission visit Standard Hip Precautions: Full WBAT No dislocation precautions May actively abduct Use a broad based stance when transitioning from sitting to standing and standing to sitting, with feet and knees wider than hips [employer] INSTRUCTOR: Explore resources in community that would be of benefit to pt and family. FOR MEDICARE ONLY: (please delete this section if not Medicare) In discussion with the attending physician, it is certified that the clinical findings support that this patient is homebound ;i.e. absences from home require considerable and taxing effort due to: Unable to ambulate community surfaces or distances unassisted due to pain, LE weakness or decreased balance and risk for falls Unsteady Gait, poor balance , requiring assistive devices and/or assistance of another All VNA agencies which cover the area of patient's residence have been reviewed, either verbally or in writing, and patient/family have chosen the home health care agency as noted for home services. Questions: Agency name and contact information: [facility] Patient location post discharge: home What services are requested: Registered Nurse Physical Therapy Social Work Occupational Therapy Start date: Responsible MD post discharge contact info: [facility] [[id number] Custom] As directed Process Instructions: Scheduling Instructions: Questions: Vendor Name/Contact information: Provider Contact Information: FRANCE Chen [address] [facility] [facility] / [place] [id number] Discharge References/Attachments: Discharge References/Attachments Enoxaparin (Lovenox) (Irish) documented in this encounter Discharge Instructions Discharge InstructionsJeanie Conti CMA - 08/14/2021 11:50 AM EDT YOU ARE SCHEDULED FOR A FOLLOW UP APPOINTMENT WITH YOUR PRIMARY CARE PROVIDER, ON 08/22/2021 AT 10:45AM Patient InstructionsWaJenise ann MD - 08/06/2021 11:33 AM EDT Orthopedic Surgery Discharge Instructions You were found to have a broken bone likely in the setting of your chronic prednisone use. You have been referred to endocrinology as an outpatient. You were also found to have confusion likely in the setting of withdrawal from alcohol. It is recommended that you abstain from all alcoholic beverages at this time. You have a follow-up appointment with your PCP on 08/22/2021 at 10:45AM Activity: 1. Your weight-bearing status is - weight bearing as tolerated of right leg. 2. Remember to use a walker or crutches as needed for balance and protection. Your physical therapist may progress you to using a cane when appropriate. 3. Remember your hip precautions: Standard: You should transition from sit to stand and stand to situtilizing a broad based stance with feet and knees wider than hips. Anticoagulation: You have been discharged on Lovenox injections (30mg daily) for 30 days. This injection will help decrease your chance of developing a blood clot. After your dose on 09/05/21, stop the Lovenox. Diet: Resume your usual diet but increase your intake of fluids and fiber while you are on narcotic pain meds to prevent constipation. You should abstain from all alcoholic beverages at this time Driving: None until you are cleared to do so by your Orthopedic surgeon. You should not drive while you are on narcotic pain meds as they can affect your judgment and reaction time. Call your surgeon with any questions/concerns. Medications: 1. The pain medication you are on can cause constipation so increase your intake of fluids and fiberwhile you are on them. The stool softener, Pericolace, that has been prescribed can also be taken tofacilitate a bowel movement. You can also take an oprr-rot-eeozvtz medication, Miralax if needed to combat constipation. 2. If you need a renewal on your narcotic pain medication, you need to give the Orthopedic clinic enough time to process your request. This can take up to three days, so plan accordingly. 3. Continue acetaminophen (Tylenol) 1,000mg every 8 hours as needed for pain for 10 days after surgery (08/16/21). This can be effective in controlling pain along with your other medications. After thatyou can take Tylenol as needed per package insert. Do not take more than 3,000mg of acetaminophen davion 24 hour period. 4. You have been discharged on a short acting narcotic, hydromorphone (Dilaudid). You will be on this medication for a limited period of time only. Take the smallest dose possible to control your pain.As your pain improves take smaller, less frequent doses. You may break the tablet to achieve a smaller dose. 5. You were prescribed Lidoderm patches in the hospital to help reduce pain. You may purchase a similar item over the counter (Salonpas 4%) and use per package insert. Shower (internal sutures): 1. You can shower but remember your activity limitations and always have a chair available for balance and protection. DO NOT submerge the dressing/incision. 2. (Mepilex) Do not let water run over the operative dressing. If it becomes wet lightly pat the dressing dry. DO NOT submerge the incision. When this operative dressing is removed you can let water gently run over the incision. Wound (Mepilex): 1. You do NOT have any external gabbie or sutures in place. Your sutures are internal and will be absorbed over time. 2. You have a Mepilex dressing in place. Do not lift the edge of the Mepilex dressing to inspect theincision, it will not re-adhere. Remove your operative dressing 7 days after your surgery (08/13/21).When it is removed you can leave the incision open to air or cover it with a light dressing. 3. If you have lots of drainage when you get home (and it is before 08/13/21), remove the operative dressing and replace it with dry sterile gauze. Continue with daily dressing changes (and as needed) until the drainage stops, then remove the dressing and leave the incision open to air or lightly covered. Misc: Remember that ICE and elevation are very important after surgery to help decrease swelling andcontrol pain. Use ICE for 20-30 minutes at a time and keep your leg elevated as much as possible. Call your doctor ([phone]) if you develop: Fever greater than 100.5 Severe nausea or vomiting Increasing pain that is not controlled by pain medications Increasing redness, swelling, or drainage from incisions Change in sensation FOLLOW-UP APPOINTMENTS: 1. You will have follow-up appointments at [facility] as indicated below in Future Appointment and Orders. 2. You will need to have x-rays prior to your follow-up appointment on 09/04/21. Please come to Radiology, desk 3T, 1 hour BEFORE that appointment for these x-rays. Future Appointments Date Time Provider Department Center 09/04/2021 11:30 AM [facility] DX ROOM 2 MH Xray [facility] Rad 09/04/2021 1:00 PM Bre Ramirez PA [facility] ORTH 3A [facility] If you have questions or concerns: Saturday through Saturday, 8 AM - 5 PM, you can call orthopedic at . For questions regarding this document or issues relating to this hospitalization on the Medical Service, please contact your inpatient physician through the [facility] [employer] . Issues after hours and on weekends will be handled by the Hospitalist staff on-call. AttachmentsThe following attachments cannot be sent through Care Everywhere. Enoxaparin (Lovenox) (Irish)documented in this encounter Medications at Time of Discharge Medication Sig Dispensed Refills Start Date End Date acetaminophen Take 2 tablets by mouth 0 [...] mL Syringe subcutaneously daily for 23 days. senna-docusate Take 2 tablets by mouth 0 08/15/19 22 09/04/2021 (Pericolace) 8.6-50 2 times daily. mg Tablet HYDROmorphone Take 0.5 tablets by 20 tablet 0 08/14/2021 (Dilaudid) 2 mg mouth every 4 hours as Tablet needed for Pain. predniSONE TAKE 1 TABLET BY MOUTH 0 06/17/2021 (Deltasone) 10 mg ONCE DAILY Tablet documented as of this encounter Progress Notes Patrica Galvan, PT - 08/14/2021 2:15 PM EDTSumpamela: CHRISSY REC: home with home PT, at least daily check in, and home health aide. Physical Therapy Note Treatment Number PT: 6 Patient profile: Paradise Abel??is a 60 y.o.?female??admitted on 08/06/2021??s/p ground fall d/t tripping over one of her moving boxes. Imaging obtained demonstrating a R femoral neck fx. She is now POD#3 s/p R JACKSON posterior approach performed by Dr. Peterson on day of admission.?? Social History: Patient lives alone in a third floor apartment with her cat. Her recently . She has elevator access and no stairs to perform. On the same level as laundry room. Pt normally independent and does not use an assistive device but does own a cane and FWW. Normally on 4LNCbut increased PRN for activity. Has home concentrator and portable. Reports that neighbors have offered, and can assist with, IADLs. Precautions/Special Considerations: Full code, WBAT RLE, standard hip precautions (verified with ortho WATER TREATMENT PLANT SUPERVISOR due to posterior approach), abduction pillow in supine. fall risk, supplemental O2 via NC. ETOH withdrawal. Delirium precautions. Mobility and Positioning Recommendations: ?? Pt to utilize FWW and 1 assist for ambulation and transfers w/ staff combat information center officer as able. ?? Please encourage up to chair for meal times as able. ?? Pt encouraged to ambulate frequently with staff, getting into the bathroom for toileting and walking out in the gasca >/= 3 times daily as able Subjective: I did my leg exercises so I'm a bit out of breath Objective: Patient seen for physical therapy and demonstrated the following: Pain: 08/27 R hip Vital Signs: On 6LNC on PT arrival 93%spO2 Placed on NRB per prior RT recommendations for ambulation - maintaining 98% on 15L NRB HR 110s Cognition/Vision: Pt was alert and cooperative w/ therapy, impulsive at times, used call magdaleno appropriately, requesting assistance appropriately. Distractible. Oriented to place/self/date. Remains somewhat wifty but no illogical statements noted. Pt endorses thinking more clearly today Bed Mobility: Supine to Sit: independent Sit to Supine: independent Transfers: Sit to Stand: independent without use of walker (walker in front). Stood x1 from toilet, x2 from recliner Stand to Sit: independent using rolling walker Other: toilet transfer with modified independence using FWW Gait: Distance: 150 ft Device used: rolling walker Level of assist: SBA/supervision (Close), line management Gait mechanics: mildly antalgic gait pattern, otherwise typical gait, no bumping into obstacles noted. Stairs: N/A Balance: Sitting Static: Good Sitting Dynamic: Fair/good - no LOB while performing seated ADLs Standing Static: Fair/good - able to stand and maintain balance without UE support Standing Dynamic / Gait: Fair w/ AD vs single UE support during standing ADL Self Care: One cue needed for safety during lower body dressing (to sit vs stand to manage pants). Otherwise doffed and donned pants independently. Tied in standing without LOB Education: Pt educated on safety, therex, use of ice, transfer training, gait training, energy conservation. Therex: Pt reports having completed LE therex program prior to PT arrival Pt left in bedside chair, with all needs met, with call magdaleno in reach and with chair alarm active RNaware following visit. Pt on 6LNC. Assessment: Paradise Abel was seen today for physical therapy treatment session for continuationof POC. Pt with significant improvement in cognition today. Continues to present as impulsive and distractible at times, but no illogical statements made, and patient requesting assistance appropriately. Pt continues to have impaired respiratory functioning, as noted by SOB while at rest on 6LNC. Placed on NRB mask for ambulation, to maintain spO2 in high 90s%. Pt's overall mobility and safety has improved, but would benefit from ongoing supervision/check ins upon return home (from family/neighbors/friends). Hopefully she can abstain from substance use, to improve her cognition and safety. Recommend home PT/OT and home health aide for return home. Pt will benefit from ongoing therapeutic interventions to achieve therapy goals. Discharge Recommendations: Based on the current findings, Anticipated Discharge Disposition (PT): home with supervision, home with home health (home health aide) when medically ready for hospital discharge. Discharge recommendation is based on the patient's current physical impairments, prior functional status, potential to return to prior level of function, patient motivation, reported home support, potential for functional gains, current level of endurance, reported home environment and anticipated trajectory of progress and may change based on patient progress during this hospitalization. Consult Recommendations: No other consults recommended at this time. Equipment Needs: Anticipated Equipment Needs at Discharge (PT): walker, front wheeled Physical Therapy Goals: Goals: To be achieved by??08/16/21: ONGOING unless otherwise stated ?? 1. Pt. to demonstrate knowledge of safety limitations and precautions 2. Pt. to demonstrate understanding of appropriate exercises 3. Pt. to perform bed mobility??from flat with modified independence using leg sharepoint admin as needed (MET08/11) 4. Pt. to perform??all??transfers with modified independence using??FWW (MET 08/11) 5. Pt. to ambulate??150??feet with supervision??and least restrictive assistive device (MET 08/14) Plan: Therapy Frequency (PT): 2-4 times/wk for therapy interventions as outlined in initial evaluation. Patient agrees with plan as stated. Time IN / OUT: 5248-5908 Total Minutes, Physical Therapy: 15 Billing Code: x1 TEF Patrica Galvan, PT Pager: [phone] Physical Therapy Inpatient Rehabilitation Department Jenise David MD - 08/14/2021 1:03 PM EDT Hospital Medicine - Attending Day of Discharge Documentation Discharge diagnosis Active Hospital Problems Diagnosis ??? Right femoral neck fracture 08/05/21 ??? Postoperative anemia due to acute blood loss ??? Chronic respiratory failure with hypoxia Resolved Hospital Problems No resolved problems to display. Secondary Issues Active Non-Hospital Problems Diagnosis ??? Severe protein-calorie malnutrition ??? Hypoxia ??? Hypotension ??? Chest pain I have personally seen and examined the patient and they are ready for discharge. I spent <30 minutes involved in the final examination of the patient, discussion of the hospital stay, instructions for continuing care to all relevant caregivers, and preparation of discharge records, prescriptions and referral forms. Plans ? Discharge to home ? Follow-up scheduled with PCP and orthopedic surgery ? Please see the Discharge Summary for complete details of any medication changes and additional plans. Tereza Schuster OT - 08/14/2021 11:11 AM EDT Occupational Therapy Treatment Note Treatment Number OT: 5 Patient Dx: Paradise Abel is a 60 y.o. female admitted on 08/06/2021 s/p ground fall d/t trippingover one of her moving boxes. Imaging obtained demonstrating a R femoral neck fx. She is now POD#8 s/p R JACKSON posterior approach performed by Dr. Peterson on day of admission. Social History: Patient lives alone with her cat in a 3rd hi apartment with elevator access. No LEIDY the building. Laundry on the [facility]. Pt reported she has a walk-in shower and sleeps in a flat bed. She is unsure if she has any AD in her shower d/t just moving. Friends live in the building and are supportive. DME: [employer] Baseline ADL/Mobility: I ADLs, I mobility no AD, on 3-4L NC with portable. Pt also has a stationary condenser. I driving and IADLs. X1 fall in the past 6 months which resulted in her current admission ?? Precautions/Special Considerations: Standard precautions (wide BRUCE sit><stand), Abduction pillow at rest, pt currently on 4 L at rest, 5 L during activity O2 via NC Interval History: Per 08/13: - No acute events overnight - Very somnolent this morning. Attempting to pull off IV and trying to reach for insurance underwriter sales's face shield - Reports abdominal pain and headache but was unable to say any more and denied abdominal pain when asked again S: I am here because I broke my hip O: Patient seen for skilled OT treatment, and demonstrated the following: ?? Self-care: ?? Completed all aspects of toileting with distant S (clothing mgmt, transfer, isaac-hygiene) ?? Tolerated standing sink side ~4 minutes for hand hygiene and oral hygiene with good dynamic standing balance and task sequencing ?? Declined further participation in her self care tasks 2/2 fatigue ?? Functional Mobility ?? Supine>sit: Independent with HOB >40* ?? Sit>stand: Independent with use of FWW from EOB, distant S from toilet 2/2 height ?? Ambulation: S with FWW and therapist managing IV pole around bedroom/bathroom ?? Stand>sit: Independent with use of ?? Cognition: ?? Behavior / Mood: alert, cooperative and wifty ?? Alert and oriented to: person, place, time and situation ?? Follows commands: 2 step, 100% of the time and requires repetition occasionally ?? Attention: WFL ?? Safety awareness: WFL and notable improvements regarding safety awareness when mobilizing OOB ?? Increased recall today for hip precautions (maintain wide BRUCE), use of FWW for safety, etc.. Requesting to remain in upright sitting in order to perform her prescribed LE exercises from PT ?? MoCA performed over the weekend with pt scoring () Endurance: Moderate, dyspneic at the conclusion of the session - responsive to PLB Vitals: ?? SpO2: 4L 88-95% with activity - dyspneic post activity which resolved with integration of PLB Pain: No formal pain scale obtained during today's session - endorsed mild discomfort in her R hip Education: Pt/family/caregiver education ongoing regarding: Role of occupational therapy/rehabilitation, Transfers, ADL, Breathing exercises, Positioning, Safety, Precautions/Protocol, Functional Mobility, Activity pacing/Energy conservation, Balance, Recommendations, Family training and Discharge planning and verbalizes and demonstrates understanding Staff Communication: Patient status, treatment, and mobility recommendations discussed with nursing/other staff. ASSESSMENT: Pt seen this am for continuation of POC. Cognition and recall of precautions notably improved as evidence by her ability to verbalize use of FWW, hip precautions when mobilizing, and consistently recall her current location and date pre/post session. At this time she continues to benefit from skilled OT intervention while hospitalized. Recommendation upon d/c is for the pt to return home with JOB RECRUITER, home OT, and supervision from friends when performing her daily tasks. Equipment needs at discharge: walker, front wheeled Anticipated Discharge Disposition: home with home health, home with supervision (Home OT) Daily schedule / Staff Recommendations: ?? Utilize upright chair position using bed features or transfer to recliner chair as appropriate with 1A, ambulate as tolerated ?? Encourage participation in ADL's by providing set up A on tray table and physical assist only as needed Occupational Therapy Goals: To be achieved by 08/21/21. Patient will stand at sink level with supervision x4 min for ADLs. Progressing Patient will dress lower body indep with adaptive equipment prn. Progressing Patient will complete all aspects of toileting I, AE PRN Progressing Patient will ambulate to the bathroom with supervision, assistive device as needed. Met 08/11 Patient will demonstrate energy conservation principals with all ADLs indep. Pt will both verbalize and demo hip precautions I Met 08/08 Pt will maintain SpO2 88-92% on home O2 when performing her daily tasks Progressing Therapy Frequency (OT): 2-3 times/wk Total Minutes, Occupational Therapy: 18 minutes (x1 [facility] [id number]) Tereza Schuster, OTR/L Inpatient Rehab Pager: [phone] Parveen Cespedes RCP - 08/14/2021 6:09 AM EDT Pt wore Bipap overnight for approximately an hour overnight. Pt refused but was coaxed to wear as long as tolerated. Pt remained on NC overnight otherwise. Tracy Bynum RN - 08/14/2021 6:01 AM EDT MD team informed of VBG critical result of CO2=66. Tracy Bynum RN - 08/13/2021 10:38 PM EDT Pt refusing BiPaP overnight. Its too strong. MD team contacted. 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 Did well from post-op / ortho perspective, cleared to go home with home health. Nature of her fracture likely related to chronic prednisone use. Plan for outpatient endocrine referral, possibly would benefit from DEXA scan / possible bisphosphonate. Hospital Problem List: Active Hospital Problems Diagnosis ??? Right femoral neck fracture 08/05/21 ??? Postoperative anemia due to acute blood loss ??? Chronic respiratory failure with hypoxia Resolved Hospital Problems No resolved problems to display. PMH: Past Medical History: Diagnosis Date ??? Angiomyolipoma of left kidney ??? Carpal tunnel syndrome ??? Clear cell carcinoma of kidney, right ??? HTN (hypertension) ??? Hyperlipidemia ??? Lymphangioleiomyomatosis 24 Hour Events/Subjective: - No acute events overnight - Very somnolent this morning. Attempting to pull off IV and trying to reach for insurance underwriter sales's face shield - Reports abdominal pain and headache but was unable to say any more and denied abdominal pain when asked again Inpatient Medications: Scheduled Meds: ??? thiamine 500 mg Intravenous TID Followed by ??? [START ON 08/15/2021] thiamine 250 mg Intravenous Daily ??? folic acid 1,000 mcg Oral Daily ??? multivitamin with minerals 1 tablet Oral Daily ??? calcium carbonate 500 mg Oral BID WC ??? cholecalciferol (Vitamin D3) 1,000 Units Oral Daily ??? ipratropium-albuteroL 3 mL Nebulization Q6H OSMIN ??? enoxaparin 30 mg Subcutaneous Nightly ??? acetaminophen 1,000 mg Oral Q6H OSMIN ??? gabapentin 300 mg Oral TID ??? busPIRone 5 mg Oral BID ??? sodium chloride 0.9 % (flush) 5 mL Intravenous BID ??? polyethylene glycoL 17 g Oral BID ??? senna-docusate 2 tablet Oral BID ??? metoprolol tartrate 25 mg Oral BID ??? simvastatin 20 mg Oral QPM ??? sirolimus 2 mg Oral Daily ??? lidocaine 3 patch Transdermal Q24H And ??? lidocaine 3 patch Transdermal Q24H ??? budesonide-formoteroL 2 Inhalation Inhalation 2 times per day ??? predniSONE 10 mg Oral Daily ??? DULoxetine DR 60 mg Oral Daily Continuous Infusions: PRN Meds: traZODone, LORazepam OR LORazepam OR LORazepam, HYDROmorphone, sodium chloride 0.9 % (flush), lidocaine, bisacodyl EC, bisacodyL, ondansetron, BUpivacaine (pf), ketorolac, cloNIDine Vitals: Last value Range last 24 hrs Temperature Temp: 36.1 ??C (97 ??F) Temp: [36.1 ??C (97 ??F)-36.8 ??C (98.2 ??F)] Heart Rate Heart Rate: 96 Heart Rate: [96-101] Blood Pressure BP: 127/81 BP: (115-135)/(73-91) Respiratory Rate Resp: 18 Resp: [17-18] SpO2 SpO2: 97 % SpO2: [94 %-100 %] Ins/Outs: Intake/Output Summary (Last 24 hours) at 08/13/2021 1236 Last data filed at 08/13/2021 1143 Gross per 24 hour Intake 5 ml Output 1800 ml Net -1795 ml Physical Exam: Gen: WDWN lying in bed in NAD HEENT: NCAT, EOMI CV: Regular rate and rhythm, no murmurs/rubs/gallops Pulm: Normal respiratory effort, speaking normally, no audible respiratory sounds, clear to auscultation bilaterally, normal expiratory phase, no rales/rhonchi/wheezes, Abd: +BS, soft, non-tender/distended, no HSM Ext: No pedal edema, 2+ peripheral pulses Skin: Warm, dry Neuro: Somnolent, awakens to sternal rub, AOx1 Labs: CBC: Recent Labs 08/13/21 0345 08/12/21 0940 08/10/21 0625 WBC 9.1 9.7* 7.0 HGB 9.3* 9.6* 8.8* PLATELET 491* 462* 290 Chemistry: Recent Labs 08/13/21 0345 08/12/21 0940 08/11/21 0824 NA 139 137 136 K 4.4 3.6 3.6 CL 92* 93* 94* CO2 39* 34* 34* BUN 14 12 7* CREATININE 0.52* 0.56* 0.38* GLUCOSE 95 185 117 Recent Labs 08/13/21 0345 08/12/21 0940 08/11/21 1810 08/11/21 0824 08/09/21 1713 08/09/21 0822 08/08/21 0921 08/07/21 0342 08/06/21 0354 CALCIUM 10.0 9.5 -- 9.1 < > 8.5 < > 7.8* 8.5 MAGNESIUM -- -- -- -- -- 0.74 -- 0.89 0.60* PHOS 3.9 -- 4.6* 2.6 < > 1.6* -- -- 2.8 < > = values in this interval not displayed. Coags: No results for input(s): PT, INR, PTT, FIBRINOGEN, DDIMER in the last 168 hours. Invalid input(s): THROMBIN TIME Microbiology: None new Pertinent Radiology/Diagnostic Studies: XR Chest PA & Lateral (08/09/2021) Diffuse pulmonary edema and cardiomegaly consistent with congestive heart failure. This is on a background of hyperinflation secondary to previously diagnosed lymphangiomyomatosis. 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 Did well from post-op / orthoperspective, cleared to go home with home health. Nature of her fracture likely related to chronic prednisone use. Plan for outpatient endocrine referral, possibly would benefit from DEXA scan / possible bisphosphonate. At this time, patient's mental status is worse likely in the setting of overdiuresis and hypercarbia. Patient may require BiPAP with sleeping and may be chronically retaining. Startednocturnal BiPAP with sleeping. VBG demonstrated pH 7.33 with elevated pCO2. Does not appear to be related to medications. #Concern for alcohol withdrawal #alcohol use #Toxic encephalopathy - CIWA scale w/ low dose ativan ordered - Replete K, Mg, Phos as needed - Wernicke dosing of thiamine - BIT team consult - VBG after BiPAP ?? #R femoral neck fracture s/p R JACKSON 08/06/21 - Activity: WBAT RLE, standard hip precautions, abduction pillow while sleeping, otherwise not required - DVT prophylaxis: lovenox 40 mg SQ daily x 4 weeks - Closure: Resorbable sutures?? - Dressing: mepilex x 7 days? #Hx of lymphangioleiomyomatosis #Chronic dyspnea requiring home O2 (3-4L) - Continue symbicort bid - Continue scheduled duoneb q6h - Continue sirolimus 2mg qd - Continue prednisone 10mg qd ?? #Fragility fracture in setting of chronic prednisone use - Outpatient endocrine referral placed by orthopedics - Vit D3 1000U qd - calcium carbonate 500mg BID ?? #Hx of peripheral edema - Continue lasix 40mg qd ?? #Hypertension - Continue metoprolol tartrate 25mg po bid ?? #HLD - Continue simvastatin 20mg po qhs ?? #MDD - Continue duloxetine 60mg qd - Continue trazodone 50mg qhs - Continue buspar 5mg qam #Housekeeping: - DVT PPx: Enoxaparin - GI PPx: None - Diet: Regular diet - IV/Tubes/Drains: PIV - Code status: Attempt Cardiopulmonary Resuscitation - Inpatient - Dispo: Pending course - Contact: Chente (brother) unable to be reached on 08/13/2021 at 12:39pm. No VM left due to no identifying info on voicemail. IPI Certification I certify that I am a D-H credentialed attending provider with admitting privileges and that the patient meets or has met medical necessity to require an inpatient IPI level of care meeting a minimum of two midnights or is on the CMS inpatient only procedure list (status C) due to: Toxic metabolic encephalopathy, alcohol withdrawal Team Pager ( Coverage 10/12): #[phone] PCP: FRANCE Chen MD 08/13/21 Patient was found to be somnolent with acute hypercarbic respiratory failure. I evaluated the patient and called critical care for evaluation as well as started her on BiPAP. After thirty minutes of BiPAP, patient appeared improved and was more awake and conversant. Will attempt to keep patient on floor at this time and stop with furosemide to prevent contraction alkalosis. Time spent on floor 11-11:40AM. Tracy Bynum RN - 08/13/2021 3:29 AM EDT OUTCOME EVALUATION NOTE: OUTCOME SUMMARY: VSS on 4L o2. A/O x 1-3, intermittently confused. Ambulating to bathroom with assistance. Pt very impulsive and jumping out of bed. Meds given as ordered. Prns given for pain in hip. Pt on ETOH withdrawal ativan scale, see flow sheets/629: Pt removed PIV. Vascular access paged for new PIV placement. INDIVIDUALIZED FALL PREVENTION: Patient is currently a high risk to Fall. Patient educated on bed/chair alarm, demonstrates proper use of call magdaleno and verbalizes understanding of fall preventions implemented. Patient-specific fall risk factors per assessment: [current deficits]: Pain, Medications, Hospital Environment, Impaired Mobility, Recent Surgery Assistance [level of assistance required for transfers and ambulation]: 1 assist with walker Supervision [direct monitoring required during toileting and ADLs]: 1 assist with ADL's Surveillance [continuous indirect monitoring]: Ernesto Purposeful Rounding, Nurse Knowledge Exchangeat Bedside, Bed Alarm Set Alana Nicholson RN - 08/12/2021 4:47 PM EDT OUTCOME EVALUATION NOTE: OUTCOME SUMMARY: VSS on 4L o2. A/O x4, intermittently confused, much better today, more confused as shift progressed.Ambulating to bathroom, needs Multiple BM's today. Meds given as ordered. Prns given for pain in hip. Bumping o2 up to 5L before, during and after ambulation. INDIVIDUALIZED FALL PREVENTION: Patient is currently a high risk to Fall. Patient educated on bed/chair alarm, demonstrates proper use of call magdaleno and verbalizes understanding of fall preventions implemented. Patient-specific fall risk factors per assessment: [current deficits]: Pain, Medications, Hospital Environment, Impaired Mobility, Recent Surgery Assistance [level of assistance required for transfers and ambulation]: 1 assist with walker Supervision [direct monitoring required during toileting and ADLs]: 1 assist with ADL's Surveillance [continuous indirect monitoring]: Ernesto Purposeful Rounding, Nurse Knowledge Exchangeat Bedside, Bed Alarm Set Rashel Ta - 08/12/2021 4:08 PM EDT [facility] Encounter Note Patient Name: Paradise Abel : [id number] MR#: [id number] Admit Date: 08/06/2021 12:25 AM Hospital Day 6 days Narrative: Visited to introduce and assess acceptance of [facility] services.Pt was not available and I will visit another time. Assessment: Intervention and Outcome: Follow-up: Time in Direct Care: Rashel Ta 08/12/2021 Nolvia Driscoll PTA - 08/12/2021 2:03 PM EDT Physical Therapy Note Treatment Number PT: 5 Patient profile: Paradise Abel??is a 60 y.o.?female??admitted on 08/06/2021??s/p ground fall d/t tripping over one of her moving boxes. Imaging obtained demonstrating a R femoral neck fx. She is now POD#3 s/p R JACKSON posterior approach performed by Dr. Peterson on day of admission.?? Interval History: Per last hospital medicine note on 08/11/2021 On 3L Ativan 1mg TID and ativan 0.5 x 2 Social History: Patient lives alone in a third floor apartment with her cat. Her recently . She has elevator access and no stairs to perform. On the same level as laundry room. Pt normally independent and does not use an assistive device but does own a cane and FWW. Normally on 4LNCbut increased PRN for activity. Has home concentrator and portable. Reports that neighbors have offered, and can assist with, IADLs. Precautions/Special Considerations: Full code, WBAT RLE, standard hip precautions (verified with ortho WATER TREATMENT PLANT SUPERVISOR due to posterior approach), abduction pillow in supine. fall risk, supplemental O2 via NC. ETOH withdrawal. Delirium precautions. Mobility and Positioning Recommendations: ?? Pt to utilize FWW and 1 assist for ambulation and transfers w/ staff combat information center officer as able. ?? Please encourage up to chair for meal times as able. ?? Pt encouraged to ambulate frequently with staff, getting into the bathroom for toileting and walking out in the gasca >/= 3 times daily as able Subjective: When am I going home? Objective: Patient seen for physical therapy and demonstrated the following: Pain: Number Location At rest 01/27 R LE, hip to knee With activity 11/26 Same area Pt reported L foot was tingling, all sensation in tact Vital Signs: VSS throughout session on 5L NC Cognition/Vision: Pt was alert and cooperative w/ therapy, impulsive at times Bed Mobility: Supine to Sit: independent Sit to Supine: independent Transfers: Sit to Stand: independent with safety concerns, performed impulsively multiple times w/o AD, antalgic movements d/t increased pain in R hip using rolling walker Stand to Sit: independent using rolling walker Gait: Distance: 150 ft Device used: rolling walker Level of assist: contact guard assist, line management Gait mechanics: antalgic gait pattern, cues to slow turning to limit pain. No rest breaks required, decreased gait speed and step length Stairs: N/A Balance: Sitting Static: Good Sitting Dynamic: Fair, laterally leaning towards L side to off weight R hip Standing Static: Fair Standing Dynamic / Gait: Fair w/ AD Education: Pt educated on importance of continued participation w/ therapy and mobilization OOB, transfer training, gait training, energy conservation, therex Therex: Provided pt w/ handout of exercises, performed while supine in bed: APs x10, quad sets x10, glute sets x10, adductor sets x10, hamstring sets x10, heel slides x10 Pt left supine in bed, with all needs met, with call magdaleno in reach and with bed alarm active RN aware following visit. Assessment: Paradise Kellie Abel was seen today for physical therapy treatment session for continuationof POC. Pt had increased pain in R hip, and a new tingling sensation in L foot, RN made aware. Pt continues to be slightly impulsive when mobilizing, not utilizing her FWW unless prompted. Pt required i ncreased oxygen and required an increased time to recover after walking. Based on current presentation, pt will benefit from VNA PT and assist from family members. Pt's pain should be better managed and will need reinforcement of safety techniques. Will continue to work w/ pt while in-house to progress towards functional goals Pt will benefit from ongoing therapeutic interventions to achieve therapy goals. Discharge Recommendations: Based on the current findings, Anticipated Discharge Disposition (PT): home with home health, home with supervision when medically ready for hospital discharge. Consult Recommendations: No other consults recommended at this time. Equipment needs: Anticipated Equipment Needs at Discharge (PT): walker, front wheeled Physical Therapy Goals: Goals: To be achieved by??08/16/21: ONGOING unless otherwise stated ?? 1. Pt. to demonstrate knowledge of safety limitations and precautions 2. Pt. to demonstrate understanding of appropriate exercises 3. Pt. to perform bed mobility??from flat with modified independence using leg sharepoint admin as needed (MET08/11) 4. Pt. to perform??all??transfers with modified independence using??FWW (MET 08/11) 5. Pt. to ambulate??150??feet with supervision??and least restrictive assistive device Plan: Therapy Frequency (PT): 1-3 more times for therapy interventions as outlined in initial evaluation. Patient agrees with plan as stated. Time IN / OUT: 0507-6943 Total Minutes, Physical Therapy: 36 Billing Code: TEF 2 Nolvia Driscoll PTA Pager: [phone] Physical Therapy Inpatient Rehabilitation Department Ngozi Marroquin OT - 08/12/2021 1:38 PM EDT Occupational Therapy Treatment Note Treatment Number OT: 4 Patient Dx: Paradise Abel is a 60 y.o. female admitted on 08/06/2021 s/p ground fall d/t trippingover one of her moving boxes. Imaging obtained demonstrating a R femoral neck fx. She is now POD#2 s/p R JACKSON posterior approach performed by Dr. Peterson on day of admission. Social History: Patient lives alone with her cat in a 3rd fl apartment with elevator access. No LEIDY the building. Laundry on the 3rd fl. Pt reported she has a walk-in shower and sleeps in a flat bed. She is unsure if she has any AD in her shower d/t just moving. Friends live in the building and are supportive. DME: [employer] Baseline ADL/Mobility: I ADLs, I mobility no AD, on 3-4L NC with portable. Pt also has a stationary condenser. I driving and IADLs. X1 fall in the past 6 months which resulted in her current admission ?? Precautions/Special Considerations: Standard precautions (wide BRUCE sit><stand), Abduction pillow at rest, pt currently on 4 L at rest, 5 L during activity O2 via NC Interval History: Nothing significant to report from pt chart S: I guess I'm not going home today then...right? O: Patient seen for skilled OT treatment, and demonstrated the following: ?? Self-care/ Functional Mobility ?? Pt SBA for aspects of toileting; ?? Clothing management ?? Transfer ?? pericare ?? Pt reports that she increases oxygen flow when ambulating to bathroom. Pt SPO2 at 97% and droppedto 93% on 4L. Pt increased to 5L and SPO2 levels recovered within 30 seconds. ?? Pt required Mod cues for management of O2 tubing during ambulation and transfers. ?? Pt remains impulsive with ambulation and management of walker. Pt required verbal cues to bring walker to front of sink for safety during hand hygiene ?? Pt reported need for seated rest break; ambulated back to sit EOB. SPO2 levels taken; 87% on 5L. Pt instructed through pursed lip breathing methods, recovery within 90 seconds to 93% ?? Pt provided education on long handled adaptive equipment and able to demonstrate functional use ?? Pt instructed to doff shirt, pt stood rapidly and attempted to doff shirt in standing and demonstrated symptoms of anxiety when shirt became stuck on Ramón on forearm. Pt instructed to sit and provided Mod A for doffing/donning shirt with management of lines. ?? Pt provided additional education on energy conservation techniques while dressing/ other routines. Pt articulates understanding ?? Cognition: ?? Behavior / Mood: alert, cooperative and wifty ?? Alert and oriented to: person and time ?? Follows commands: 2 step, 100% of the time and requires repetition ?? Attention: WFL ?? Safety awareness: decreased insight into deficits, impulsive and moderate impairment Yemi Cognitive Assessment (MoCA) Results: Comments Visuospatial/Exec 0/1 Trails Test 0/ Cube Copy 05/20 Clock: Contour 0/ Clock: Numbers 05/20 Clock: Hands Naming 3/3 (of 3) Attention 1/ Repeat forward 05/20 Repeat backwards 0/ Tapping for letter A 2 errors 2/3 Serial 7 Subtraction (3pts=4+; 2pts=2+; 1pt=1) Language 2/2 Repeating Sentences Fluency 05/20 Word Naming (1pt=11+ words) Abstraction 0/2 Similarities (Associations) Delayed Recall 0/5 (uncued) Orientation 05/20 Month 05/20 Date 05/20 Year 05/20 Day of the week 0 Location college 05/20 [facility] Add 1 point if 12 years of education or less TOTAL 17/30 Score of 26 or greater considered normal Endurance: c/o moderate exertion with standing after toileting to complete grooming tasks. Pt requiring O2 to be bumped to 5 from 4 with activity. ?? Vitals: ?? SpO2: 4L 97-92% mostly, but did drop briefly with doffing shirt to 87%. Pt though able to recoverin about a minute and 1/2 with coaching in PLB. HR 108-120 Pain: didn't give number, but discomfort in R hip Education: Pt/family/caregiver education ongoing regarding: Role of occupational therapy/rehabilitation, Transfers, ADL, Breathing exercises, Positioning, Safety, Precautions/Protocol, Functional Mobility, Activity pacing/Energy conservation, Balance, Recommendations, Family training and Discharge planning and verbalizes and demonstrates understanding Staff Communication: Patient status, treatment, and mobility recommendations discussed with nursing/other staff. ASSESSMENT: Pt seen this pm for continuation of POC. Pt seen in bed upon arrival agreeable to therapy. Pt continues to demonstrate decreased safety awareness and increased impulsivity during activity. Pt requires frequent cues for safety regarding FWW and O2 tubing, reports understanding however behavior does not reflect retention. Pt provided education on energy conservation and adaptive techniques for eventual discharge when cognitively appropriate. Pt participated in the MOCA and results demonstrate deficits in relation to executive functioning, attention, abstraction, orientation, and delayed recall. Pt'sO2 levels fluctuate with activity with recovery occurring in 60-90 seconds on 5L of O2 (ptis on 4L at baseline). Pt will benefit from continued education and ongoing therapeutic interventions to achieve pt's and therapy goals. Equipment needs at discharge: walker, front wheeled Anticipated Discharge Disposition: home with home health Daily schedule / Staff Recommendations: ?? Utilize upright chair position using bed features or transfer to recliner chair as appropriate with 1A, ambulate as tolerated ?? Encourage participation in ADL's by providing set up A on tray table and physical assist only as needed Occupational Therapy Goals: To be achieved by 08/21/21. Patient will stand at sink level with supervision x4 min for ADLs. Progressing Patient will dress lower body indep with adaptive equipment prn. Progressing Patient will complete all aspects of toileting I, AE PRN Progressing Patient will ambulate to the bathroom with supervision, assistive device as needed. Met 08/11 Patient will demonstrate energy conservation principals with all ADLs indep. Pt will both verbalize and demo hip precautions I Met 08/08 Pt will maintain SpO2 88-92% on home O2 when performing her daily tasks Progressing Therapy Frequency (OT): 2-3 times/wk Total Minutes, Occupational Therapy: 44 (2x SCHM 1xcog ) Betsy Kerr [facility] Occupational Therapy Rehabilitation Department Patient status, treatment interventions, and goals discussed with student. I am in agreement with all details and associated flowsheet rows as documented and was present for all aspects of the patient treatment session. Pt progressing slower than expected. Pt will need further treatment sessions. Changed POC to reflectthis. Still feel she will be able to work towards home with supports. 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 Did well from post-op / ortho perspective, cleared to go home with home health. Nature of her fracture likely related to chronic prednisone use. Plan for outpatient endocrine referral, possibly would benefit from DEXA scan / possible bisphosphonate. Hospital Problem List: Active Hospital Problems Diagnosis ??? Right femoral neck fracture 08/05/21 ??? Postoperative anemia due to acute blood loss ??? Chronic respiratory failure with hypoxia Resolved Hospital Problems No resolved problems to display. PMH: Past Medical History: Diagnosis Date ??? Angiomyolipoma of left kidney ??? Carpal tunnel syndrome ??? Clear cell carcinoma of kidney, right ??? HTN (hypertension) ??? Hyperlipidemia ??? Lymphangioleiomyomatosis 24 Hour Events/Subjective: - Unable to sleep last night, was increasingly disoriented in the evening and tried to leave AMA. Unable to be assessed for capacity. Administered ativan 1mg - Reports that she feels well this morning and that she understands she will need to work with PT/OTin order to prevent falls at home and returning to the hospital. Has neighbor to help with IADLs bibi works Saturday through nights and sleeps during the day Inpatient Medications: Scheduled Meds: ??? thiamine 100 mg Oral Daily ??? folic acid 1,000 mcg Oral Daily ??? multivitamin with minerals 1 tablet Oral Daily ??? calcium carbonate 500 mg Oral BID WC ??? cholecalciferol (Vitamin D3) 1,000 Units Oral Daily ??? ipratropium-albuteroL 3 mL Nebulization Q6H OSMIN ??? enoxaparin 30 mg Subcutaneous Nightly ??? acetaminophen 1,000 mg Oral Q6H OSMIN ??? gabapentin 300 mg Oral TID ??? busPIRone 5 mg Oral BID ??? sodium chloride 0.9 % (flush) 5 mL Intravenous BID ??? polyethylene glycoL 17 g Oral BID ??? senna-docusate 2 tablet Oral BID ??? metoprolol tartrate 25 mg Oral BID ??? simvastatin 20 mg Oral QPM ??? sirolimus 2 mg Oral Daily ??? lidocaine 3 patch Transdermal Q24H And ??? lidocaine 3 patch Transdermal Q24H ??? budesonide-formoteroL 2 Inhalation Inhalation 2 times per day ??? predniSONE 10 mg Oral Daily ??? furosemide 40 mg Oral Daily ??? DULoxetine DR 60 mg Oral Daily Continuous Infusions: PRN Meds: traZODone, LORazepam OR LORazepam OR LORazepam, HYDROmorphone, sodium chloride 0.9 % (flush), lidocaine, bisacodyl EC, bisacodyL, ondansetron, BUpivacaine (pf), ketorolac, cloNIDine Vitals: Last value Range last 24 hrs Temperature Temp: 36.9 ??C (98.4 ??F) Temp: [36.9 ??C (98.4 ??F)-37.1 ??C (98.8 ??F)] Heart Rate Heart Rate: (!) 109 Heart Rate: [108-109] Blood Pressure BP: 114/75 BP: (113-139)/(75-100) Respiratory Rate Resp: 16 Resp: [16-18] SpO2 SpO2: 99 % SpO2: [98 %-100 %] Ins/Outs: Intake/Output Summary (Last 24 hours) at 08/12/2021 0959 Last data filed at 08/12/2021 0323 Gross per 24 hour Intake 240 ml Output 900 ml Net -660 ml Physical Exam: Gen: WDWN lying in bed in NAD HEENT: NCAT, EOMI CV: Regular rate and rhythm, no murmurs/rubs/gallops Pulm: Normal respiratory effort, speaking normally, no audible respiratory sounds, clear to auscultation bilaterally, normal expiratory phase, no rales/rhonchi/wheezes, Abd: +BS, soft, non-tender/distended, no HSM Ext: No pedal edema, 2+ peripheral pulses Skin: Warm, dry Neuro: Awake, alert, oriented x3 Labs: CBC: Recent Labs 08/10/21 0625 08/09/21 0822 08/08/21 0921 WBC 7.0 8.3 9.9* HGB 8.8* 9.0* 9.3* PLATELET 290 232 209 Chemistry: Recent Labs 08/11/21 0824 08/10/21 0625 08/09/21 0822 NA 136 133* 134* K 3.6 3.6 3.9 CL 94* 95* 99 CO2 34* 31 27 BUN 7* 8 9 CREATININE 0.38* 0.42* 0.53* GLUCOSE 117 117 101 Recent Labs 08/11/21 1810 08/11/21 0824 08/10/21 0625 08/09/21 1713 08/09/21 0822 08/08/21 0921 08/07/21 0342 08/06/21 0354 CALCIUM -- 9.1 8.5 -- 8.5 < > 7.8* 8.5 MAGNESIUM -- -- -- -- 0.74 -- 0.89 0.60* PHOS 4.6* 2.6 1.6* < > 1.6* -- -- 2.8 < > = values in this interval not displayed. Coags: Recent Labs 08/06/21 0354 PT 10.2 INR 0.9 PTT 26 Microbiology: None new Pertinent Radiology/Diagnostic Studies: XR Chest PA & Lateral (08/09/2021) Diffuse pulmonary edema and cardiomegaly consistent with congestive heart failure. This is on a background of hyperinflation secondary to previously diagnosed lymphangiomyomatosis. 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 Did well from post-op / orthoperspective, cleared to go home with home health. Nature of her fracture likely related to chronic prednisone use. Plan for outpatient endocrine referral, possibly would benefit from DEXA scan / possible bisphosphonate. At this time, patient's mental status appears to wax and wane and does not appear to be related to ativan or dilaudid. CO2 appears to be stable, likely in the setting of contraction alkalosis. Patient appears to be baseline in terms of her respiratory status. #Concern for alcohol withdrawal #alcohol use #Toxic encephalopathy - CIWA scale w/ low dose ativan ordered - Replete K, Mg, Phos as needed - Wernicke dosing of thiamine - BIT team consult ?? #R femoral neck fracture s/p R JACKSON 08/06/21 - Activity: WBAT RLE, standard hip precautions, abduction pillow while sleeping, otherwise not required - DVT prophylaxis: lovenox 40 mg SQ daily x 4 weeks - Closure: Resorbable sutures?? - Dressing: mepilex x 7 days? #Hx of lymphangioleiomyomatosis #Chronic dyspnea requiring home O2 (3-4L) - Continue symbicort bid - Continue scheduled duoneb q6h - Continue sirolimus 2mg qd - Continue prednisone 10mg qd ?? #Fragility fracture in setting of chronic prednisone use - Outpatient endocrine referral placed by orthopedics - Vit D3 1000U qd - calcium carbonate 500mg BID ?? #Hx of peripheral edema - Continue lasix 40mg qd ?? #Hypertension - Continue metoprolol tartrate 25mg po bid ?? #HLD - Continue simvastatin 20mg po qhs ?? #MDD - Continue duloxetine 60mg qd - Continue trazodone 50mg qhs - Continue buspar 5mg qam #Housekeeping: - DVT PPx: Enoxaparin - GI PPx: None - Diet: Regular diet - IV/Tubes/Drains: PIV - Code status: Attempt Cardiopulmonary Resuscitation - Inpatient - Dispo: Pending course IPI Certification I certify that I am a D-H credentialed attending provider with admitting privileges and that the patient meets or has met medical necessity to require an inpatient IPI level of care meeting a minimum of two midnights or is on the [facility] inpatient only procedure list (status C) due to: Toxic metabolic encephalopathy, alcohol withdrawal Team Pager (MD Coverage 10/12): #[phone] PCP: FRANCE Chen MD 08/12/21 Alana Nicholson RN - 08/11/2021 6:13 PM EDT OUTCOME EVALUATION NOTE: OUTCOME SUMMARY: VSS on 3L o2. A/O x4, intermittently confused, needs redirection. Ambulating to bathroom, needs cueing. Multiple BM's today. Meds given as ordered. Prns given for pain in hip. INDIVIDUALIZED FALL PREVENTION: Patient is currently a high risk to Fall. Patient educated on bed/chair alarm, demonstrates proper use of call magdaleno and verbalizes understanding of fall preventions implemented. Patient-specific fall risk factors per assessment: [current deficits]: Pain, Medications, Hospital Environment, Impaired Mobility, Recent Surgery Assistance [level of assistance required for transfers and ambulation]: 1 assist with walker Supervision [direct monitoring required during toileting and ADLs]: 1 assist with ADL's Surveillance [continuous indirect monitoring]: Masimo, Purposeful Rounding, Nurse Knowledge Exchangeat Bedside, Bed Alarm Set Cheri Perdue MD - 08/11/2021 5:51 PM EDT Hospital Medicine Attending Daily Progress Note Admit Date: 08/06/2021 Hospital Day 5 days Active Hospital Problems Diagnosis ??? Right femoral neck fracture 08/05/21 ??? Postoperative anemia due to acute blood loss ??? Chronic respiratory failure with hypoxia Resolved Hospital Problems No resolved problems to display. PMH Active Non-Hospital Problems Diagnosis ??? Severe protein-calorie malnutrition ??? Hypoxia ??? Hypotension ??? Chest pain Inpatient Medications: Scheduled ??? thiamine 100 mg Oral Daily ??? folic acid 1,000 mcg Oral Daily ??? multivitamin with minerals 1 tablet Oral Daily ??? calcium carbonate 500 mg Oral BID WC ??? cholecalciferol (Vitamin D3) 1,000 Units Oral Daily ??? ipratropium-albuteroL 3 mL Nebulization Q6H OSMIN ??? enoxaparin 30 mg Subcutaneous Nightly ??? acetaminophen 1,000 mg Oral Q6H OSMIN ??? gabapentin 300 mg Oral TID ??? busPIRone 5 mg Oral BID ??? sodium chloride 0.9 % (flush) 5 mL Intravenous BID ??? polyethylene glycoL 17 g Oral BID ??? senna-docusate 2 tablet Oral BID ??? metoprolol tartrate 25 mg Oral BID ??? simvastatin 20 mg Oral QPM ??? sirolimus 2 mg Oral Daily ??? lidocaine 3 patch Transdermal Q24H And ??? lidocaine 3 patch Transdermal Q24H ??? budesonide-formoteroL 2 Inhalation Inhalation 2 times per day ??? predniSONE 10 mg Oral Daily ??? furosemide 40 mg Oral Daily ??? DULoxetine DR 60 mg Oral Daily Continuous infusions: PRN: LORazepam OR LORazepam OR LORazepam, HYDROmorphone, sodium chloride 0.9 % (flush), lidocaine, bisacodyl EC, bisacodyL, ondansetron, traZODone, BUpivacaine (pf), ketorolac, cloNIDine Interval History: On 3L Ativan 1mg TID and ativan 0.5 x 2 ROS: Doing better today but some nonsensical comments during day noted by nursing. She denies h/o w/d from EtOH. Notes leg aches. No numbness, tingling, weakness. No f/c. Thinks breathing at baseline Physical Exam Vitals Range last 24 hrs Temperature Temp: [36.6 ??C (97.9 ??F)-37 ??C (98.6 ??F)] Heart Rate Heart Rate: [87-108] Blood Pressure BP: (112-128)/(70-84) Respiratory Rate Resp: [18] SpO2 SpO2: [98 %-100 %] Intake/Output Summary (Last 24 hours) at 08/11/2021 175 Last data filed at 08/11/2021 1000 Gross per 24 hour Intake 240 ml Output 600 ml Net -360 ml Patient Vitals for the past 168 hrs: Weight 08/08/21 2100 47.9 kg (105 lb 11.2 oz) Body mass index is 18.72 kg/m??. General -Sitting up in bed, A+O x 3 and president HEENT- Anicteric sclera Neck - Supple CV - RRR, no r/g Lungs - No overt crackles or wheezes Abd - Soft, ND, +BS, non-tender Ext - Warm, no edema; dressing with rip on outer layer, no surrounding erythema Studies reviewed in eDH. Remarkable for the following: LABS: Last 3 wbc, hgb, hct plt Recent Labs 08/10/21 0625 08/09/21 0822 08/08/21 0921 WBC 7.0 8.3 9.9* HGB 8.8* 9.0* 9.3* HCT 28.7* 28.7* 29.6* PLATELET 290 232 209 Last 3 Lytes Recent Labs 08/11/21 0824 08/10/21 0625 08/09/21 08 NA 136 133* 134* K 3.6 3.6 3.9 CL 94* 95* 99 CO2 34* 31 27 BUN 7* 8 9 CREATININE 0.38* 0.42* 0.53* Last 3 LFTs No results for input(s): AST, ALT, ALKPHOS, BILITOT, BILIDIR in the last 7068 hours. Last Ca, Mg, Phos Recent Labs 08/11/21 0824 08/09/21 1713 08/09/21 0822 CALCIUM 9.1 < > 8.5 PHOS 2.6 < > 1.6* MAGNESIUM -- -- 0.74 < > = values in this interval not displayed. Last 3 Coags Recent Labs 08/06/21 0354 PT 10.2 INR 0.9 PTT 26 Last 3 ProBNP, Trop, CK No results for input(s): CK, TROPONINT, PROBNP in the last 168 hours. Last 3 TFT No results for input(s): TSH in the last 7068 hours. Invalid input(s): T4, FT4 Last 3 Lipids No results for input(s): CHLPL, HDL, LDLCHOL, LDLDIRECT, TRIG in the last 7068 hours. Last 3 HgbA1C No results for input(s): HA1C in the last 7068 hours. Last CRP, SEDRATENo results for input(s): CRP, SEDRATE in the last 7068 hours. FSBG Trend No results for input(s): POCGLU in the last 72 hours. MICRO: No results for input(s): URINECULTURE in the last 720 hours. No results for input(s): GRAMSTAIN, BFCX, LOWERRESPCX, TISSUECX in the last 720 hours. No results for input(s): BLOODCX in the last 720 hours. ECG: No results for input(s): DIAGLINE, QTCCALC in the last 720 hours. VASCULAR: No results for input(s): VBTEXTRPT in the last 720 hours. IMAGING: Results for orders placed or performed during the hospital encounter of 08/06/21 XR Pelvis (Generic) (Exam End: 08/06/2021 11:47 AM) Impression Post RIGHT total hip arthroplasty since the previous study. No radiographic evidence of complication. Thank you for letting us participate in the care of this patient. If you are a health care provider and have any questions regarding this report, please contact the number below. For patients who have questions please contact the health childcare center director that requested your imaging first. Electronically signed by: Alejandro Cortez MD, [facility] ([phone]), at 08/06/2021 11:51 AM XR Chest PA & Lateral (Generic) (Exam End: 08/09/2021 1:26 PM) Impression Diffuse pulmonary edema and cardiomegaly consistent with congestive heart failure. This is on a background of hyperinflation secondary to previously diagnosed lymphangiomyomatosis. Thank you for letting us participate in the care of this patient. If you are a health care provider and have any questions regarding this report, please contact the number below. For patients who have questions please contact the health childcare center director that requested your imaging first. 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 Did well from post-op / ortho perspective, cleared to go home with home health. Nature of her fracture likely related to chronic prednisone use. Plan for outpatient endocrine referral, possibly would benefit from DEXA scan / possible bisphosphonate. ?? Transferred to medicine 08/09 with concern for alcohol withdrawal/DTs in the 72- 92 hour window from last drink. Balance of sedation and ativan as also takes buspar. Bicarb higher today but as A&O x 3 for me this am and not drowsy. Low threshold for ABG if persistent AMS or somnolence. Also could becontraction on lasix. ?? Her respiratory status is near baseline. CXR suggested CHF but did not appear clinically overloaded and on lasix chronically. If desats below baseline then consider additional diuresis. ? #Concern for alcohol withdrawal #alcohol use #Toxic encephalopathy -CIWA scale w/ low dose ativan ordered -replete K, Mg, Phos as needed -thiamine / folate / MV -consider BIT team ?? #R femoral neck fracture s/p R JACKSON 08/06/21 -Activity: WBAT RLE, standard hip precautions, abduction pillow while sleeping, otherwise not required -DVT prophylaxis: lovenox 40 mg SQ daily x 4 weeks -Closure: Resorbable sutures -Dressing: mepilex x 7 days ?? #Hx of lymphangioleiomyomatosis #Chronic dyspnea requiring home O2 (3-4L) -symbicort bid -scheduled duoneb q6h -duonebs q4h prn -we do not have aerosolized glycopyrrolate on formulary ??-sirolimus is associated with poor wound healing, but at this point should continue as usual - 2mgqd -continue prednisone 10mg qd -Consider diuresis if desats with CXR 08/09 ?? #Fragility fracture in setting of chronic prednisone use -outpatient endocrine referral placed by orthopedics -Vit D3 1000U qd -calcium carbonate 500mg BID ?? #Hx of peripheral edema and possible edema on CXR -continue lasix 40mg qd ?? #HTN -continue metoprolol tartrate 25mg po bid ?? #HLD -continue simvastatin 20mg po qhs ?? #MDD -continue duloxetine 60mg qd -continue trazodone 50mg qhs -continue buspar 5mg qam ?? IV access: PIV DVT PPX: Lovenox Anticipated Disposition: Not clear for home today - continue to assess over weekend Team Pager( Coverage 10/12): #[phone] PCP: FRANCE Chen [phone] Attestation: IPI Certification I certify that I am a [facility] credentialed attending provider with admitting privileges and that the patient meets or has met medical necessity to require an inpatient IPI level of care meeting a minimum of two midnights or is on the CMS inpatient only procedure list (status C) due to: EtOH w/d Cheri Perdue MD 08/11/2021 Tereza Schuster OT - 08/11/2021 2:22 PM EDT Occupational Therapy Treatment Note Treatment Number OT: 3 Patient Dx: Paradise Abel is a 60 y.o. female admitted on 08/06/2021 s/p ground fall d/t trippingover one of her moving boxes. Imaging obtained demonstrating a R femoral neck fx. She is now POD#2 s/p R JACKSON posterior approach performed by Dr. Peterson on day of admission. Social History: Patient lives alone with her cat in a 3rd fl apartment with elevator access. No LEIDY the building. Laundry on the 3rd fl. Pt reported she has a walk-in shower and sleeps in a flat bed. She is unsure if she has any AD in her shower d/t just moving. Friends live in the building and are supportive. DME: Cane, FWW Baseline ADL/Mobility: I ADLs, I mobility no AD, on 3-4L NC with portable. Pt also has a stationary condenser. I driving and IADLs. X1 fall in the past 6 months which resulted in her current admission ?? Precautions/Special Considerations: Standard precautions (wide BRUCE sit><stand), Abduction pillow at rest, 6-8L O2 via NC Interval History: Per medicine 08/10/21 Transferred from ortho on CIWA On 3L Dilaudid x 1 Ativan 0.5 x 2 yesterday, 1 overnight at 3am S: I don't know.... I do feel more confused O: Patient seen for skilled OT treatment, and demonstrated the following: ?? Self-care: ?? S for all aspects of toileting (clothing mgmt, transfer, isaac-hygiene) 2/2 impulsivity - notable tremors present in b/i UE when managing clothing ?? Cues for safety/locating various items when performing hand hygiene standing sink side - able to reach out of her BRUCE to access items - SBA ?? SBA doff/donning pants sitting EOB - cues for safety when pt attempted to doff pants by stepping out of them d/t increased fall risk ?? Min A donning bra - pt attempted clasps but unable to complete the task 2/2 tremors ?? I doff/harvey tshirt sitting EOB ?? Functional Mobility: ?? Supine>sit: Did not directly visualize - pt seen ambulating in the room w/o AD impulsively upon approach ?? Sit>stand: Did not visualize transfer from EOB as pt was impulsively mobilizing in room upon approach - able to complete transfer with S and FWW from toilet ?? Ambulation: S from bed<>bathroom ~25' with FWW, no LOB but limited safety awareness d/t attempts to leave FWW behind ?? Stand>sit: S onto both toilet and EOB with good eccentric control ?? Sit>supine: S with HOB flat, ice provided to hip, heat pack provided to L UE PIV site ?? Cognition: ?? Behavior / Mood: alert, cooperative and confused ?? Alert and oriented to: person, reported it was March 13 and that she was in [facility]. Unable to recall initially why she was in the hospital just reported that her hip hurt. Provided proper orientation as appropriate ?? Follows commands: 2 step and 100% of the time ?? Attention: WFL ?? Safety awareness: WFL, decreased insight into deficits, impulsive and moderate impairment ?? Orientation waxes and wanes greatly between sessions ?? Serial 7's - initially subtracted to 92 but then self corrected to 93 with increased time. Unableto recall the rest ?? Months Backwards - Pt made several errors despite significant time (missed April x2 and Decemberx1), pt allowed second attempt which she still made errors. ?? CAM (-) ?? Answered all safety questions appropriately ?? Vision: ?? WNL/WFL ?? corrective lenses for reading ?? Endurance: Moderate, tolerated today's session well on 3-4L ?? Vitals: ?? SpO2: 3L 94% (rest) 3L 79-92% (activity) > increased to 4L for activity with stats increasing to 93% ?? HR: 101bpm (rest) 110bpm ?? Strength/ROM: Hand dominance: right Bilateral UEs are within functional limitations for AROM and strength LE limitations: WBAT RLE with Standard precautions (wide BRUCE sit><stand) Pain: Pt endorsing high levels of pain in her R hip and L PIV site, ice applied and RN aware Education: Pt/family/caregiver education ongoing regarding: Role of occupational therapy/rehabilitation, Transfers, ADL, Breathing exercises, Positioning, Safety, Precautions/Protocol, Functional Mobility, Activity pacing/Energy conservation, Balance, Recommendations, Family training and Discharge planning and verbalizes and demonstrates understanding Staff Communication: Patient status, treatment, and mobility recommendations discussed with nursing/other staff. ASSESSMENT: Pt seen this pm for continuation of POC. Functionally, the pt demonstrated her ability to manage BADLs with S and occasional cues for sequencing tasks. However, pt remains unsafe to d/c home d/t her present cognitive status, decreased safety awareness, and impulsivity with mobility. I anticipate that this will improve as her O2 stabilizes and she scores less on the CIWA scale - will continue during her hospitalization. Pt will benefit from ongoing therapeutic interventions to achieve pt's and therapy goals. Recommendation upon d/c is for the pt to return home with support/assistance from friends and JOB RECRUITER, home OT when performing her daily tasks. Pt in agreement with POC. Equipment needs at discharge: walker, front wheeled Anticipated Discharge Disposition: home with home health, home with supervision (10/12) Daily schedule / Staff Recommendations: ?? Utilize upright chair position using bed features or transfer to recliner chair as appropriate with 1A, ambulate as tolerated ?? Encourage participation in ADL's by providing set up A on tray table and physical assist only as needed Occupational Therapy Goals: To be achieved by 08/21/21. Patient will stand at sink level with supervision x4 min for ADLs. Partially Met Patient will dress lower body indep with adaptive equipment prn. Partially Met Patient will complete all aspects of toileting I, AE PRN Partially Met Patient will ambulate to the bathroom with supervision, assistive device as needed. Met 08/11 Patient will demonstrate energy conservation principals with all ADLs indep. Pt will both verbalize and demo hip precautions I Met 08/08 Pt will maintain SpO2 88-92% on home O2 when performing her daily tasks Partially Met Therapy Frequency (OT): 1-3 more times Total Minutes, Occupational Therapy: 21 (x1 [facility] [phone]) Pager: [phone] Tereza Schuster, OTR/L 08/11/2021 Occupational Therapy Rehabilitation Department Patrica Galvan, PT - 08/11/2021 2:10 PM EDTSumpamela: CHRISSY REC: home with brother vs home with home PT, home health aide. NOT cleared today. Cognition remains issue Physical Therapy Note Treatment Number PT: 4 Patient profile: Paradise Abel??is a 60 y.o.?female??admitted on 08/06/2021??s/p ground fall d/t tripping over one of her moving boxes. Imaging obtained demonstrating a R femoral neck fx. She is now POD#3 s/p R JACKSON posterior approach performed by Dr. Peterson on day of admission.?? Interval History: actively withdrawing and scoring on CIWA scale, transferred to hospital medicine service (from ortho) Social History: Patient lives alone in a third floor apartment with her cat. Her recently . She has elevator access and no stairs to perform. On the same level as laundry room. Pt normally independent and does not use an assistive device but does own a cane and FWW. Normally on 4LNC but increased PRN for activity. Has home concentrator and portable. Reports that neighbors have offered, and can assist with, IADLs. ?? Precautions/Special Considerations: Full code, WBAT RLE, standard hip precautions (verified with ortho [employer]PER[employer] due to posterior approach), abduction pillow in supine. fall risk, supplemental O2 via NC. ETOH withdrawal. Delirium precautions. ?? Mobility and Positioning Recommendations: ?? Pt. to utilize FWW with 1 assist for ambulation and transfers with nursing. ?? Please encourage up to chair for meal times as able. ?? Pt encouraged to ambulate frequently with staff, getting into the bathroom for toileting and walking out in the gasca >/= 3 times daily as able. ?? Subjective: that lady took my wallet, can we stop at home? Objective: Patient seen for physical therapy and demonstrated the following: Pain: R hip, 10 Vital Signs: SpO2 (3LNC) 97% at rest, 92% with activity HR 103-110sbpm BP mmHg Cognition: alert, oriented to self, place, situation, date (month, year not day). Distractible, impulsive. Poor safety awareness. Stated she would call her brother in an emergency or if there were a fire at home. Unable to recall room # after re-oriented. Making illogical statements at times Self Care: N/A - see OT note Functional Mobility: Bed Mobility: Supine to Sit: independent Sit to Supine: independent Transfers: Sit to Stand: independent without AD - standing impulsively on two separate occasions without walker Stand to Sit: independent Bed to Chair: N/A Other: x5 STS performed from EOB with use of UEs Five Times Sit to Stand Test Time to complete 5 stands: 15 seconds Comments: use of UES, from EOB, supervised Normal Values: Greater than 13.6 seconds indicates increased disability and morbidity. - (Flavia, 2000) The optimal cutoff time for performing the FTSS test in predicting recurrent falls is 15 seconds. -(Shruthi et al., 2008) References: Costa Alejandro, isamar Condon al. (2000). Lower extremity function and subsequent disability: consistency across studies, predictive models, and value of gait speed alone compared with the short physical performance battery. J Gerontol A Biol Sci Med Sci 55(4): M221-31. Shruthi Deleon, Oliver D, Serge P, Ran R, Magdaleno P, Cory G et al. Five times sit to stand test is a predictor of recurrent falls in healthy community?living subjects aged 65 and older. J Am Geriatr Soc 2008; 56(8):1575?1577 Patient educated in, and cued throughout, functional mobility to ensure safe and complete activities. Gait Training: Gait: Distance: 150 ft Device Used: FWW Level of Assist: CGA-min A Gait Comments: CGA for straight path, x1 instance of bumping into wall needing min A for walker management. distractible at times Stairs: N/A - none to perform at home on DC Patient educated in, and cued throughout, to improve gait pattern, body mechanics, safety, and independence during activity. Balance: Sitting Static: good Sitting Dynamic: good - no use of UEs at EOB Standing Static: fair - without AD, no LOB Standing Dynamic / Gait: fair- CGA The 4 Stage Balance Test: Position Time (assessed up to 10 seconds) Comments: Romberg >10 Eyes open, increased lateral sway but no LOB Semi-tandem >10 No LOB. Full tandem - one foot in front of the other, heel touching toe 10 Needing UE support to assume testposition, then able to remove UE support Single limb stance 5-10 seconds LLE only due to recent surgery on RLE (N/A) Inability to perform tandem stance for at least 10 sec indicates increased risk of falling. Exercises: N/A this date Education: patient educated on role of therapy, use of walker, WBAT, standard hip precautions, safety, ongoingmobility, and DC planning, with poor understanding/demonstration. Will need ongoing reinforcement and education. Patient status, treatment, and mobility recommendations discussed with nursing. Pt left supine in bed with HOB elevated, 3/4 bed rails up, bed alarm on, and call magdaleno in reach following visit. Team Communication: communication with nursing staff pre/post session regarding readiness and response to therapy intervention. Assessment: Paradise Abel was seen today for physical therapy treatment session for continuationof POC. Pt with improved mental status and participation in PT, though remains with some concerning statements and safety awareness. Pt presenting as oriented, but continues to be intermittently confused and appearing delirious. Though improved cognition from prior, still poses as significant concern.Despite this, able to mobilize with less assistance, though impulsive and unsafe at times. Based on current presentation would be unsafe to return home currently; however, prior to withdrawal, pt was mobilizing quite well and had cleared to DC home from a PT standpoint. Anticipate that once patient medically stabilizes, she should be able to return home with home PT/OT, home health aide, and supervision/assist from neighbors. May benefit from staying with brother, if able, for increased supervision and abstinence from substances. Will continue to follow up for ongoing skilled PT during hospital course. Pt will benefit from ongoing therapeutic interventions to achieve therapy goals. Discharge Recommendations: Based on the current findings, Anticipated Discharge Disposition (PT): home with home health, home with supervision (home health aide, ? stay with brother) when medically ready for hospital discharge. Discharge recommendation is based on the patient's current physical impairments, prior functional status, potential to return to prior level of function, patient motivation, reported home support, potential for functional gains, current level of endurance, reported home environment and anticipated trajectory of progress and may change based on patient progress during this hospitalization. Consult Recommendations: No other consults recommended at this time. Equipment Needs: Anticipated Equipment Needs at Discharge (PT): walker, front wheeled Transportation Needs: Car/Brother Cleared Physical Therapy? NO Physical Therapy Goals: Goals ongoing as of 08/11/21 unless otherwise noted Goals: To be achieved by 08/16/21: ?? 1. Pt. to demonstrate knowledge of safety limitations and precautions 2. Pt. to demonstrate understanding of appropriate exercises 3. Pt. to perform bed mobility from flat with modified independence using leg sharepoint admin as needed (MET 08/11) 4. Pt. to perform all transfers with modified independence using FWW (MET 08/11) 5. Pt. to ambulate 150 feet with supervision and least restrictive assistive device Plan: Therapy Frequency (PT): 1-3 more times for therapy interventions as outlined in initial evaluation. Patient agrees with plan as stated. Time IN / OUT: 4497-7931 Total Minutes, Physical Therapy: 30 Billing Code: x2 TEF Thank you for this consult. 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 Paradise Abel is a 60 y.o. female Reason for intervention: Follow up and Malnutrition evaluation Nutrition Recommendations: Regular diet Encourage good po intake Ensure Enlive Vanilla in a cup BID Monitor weight Monitor lytes - replete as needed Active Orders Diet Regular diet Frequency: Effective Now Number of Occurrences: Until Specified Nourishments Adult diet Oral Supplements Ensure Enlive Frequency: TID Number of Occurrences: Until Specified Order Comments: Flavors of choice Lab Results Component Value Date NA 136 08/11/2021 K 3.6 08/11/2021 CL 94 (L) 08/11/2021 CO2 34 (H) 08/11/2021 BUN 7 (L) 08/11/2021 CREATININE 0.38 (L) 08/11/2021 ESTGFR 115 08/11/2021 MAGNESIUM 0.74 08/09/2021 CALCIUM 9.1 08/11/2021 PHOS 2.6 08/11/2021 No results found for: POCGLU Skin Status: Shift Pressure Injury Prevention Occiput: No Injury Thoracic Spine: No Injury Sacral: No Injury Ischial - left: No Injury Ischial - right: No Injury Heel - left: No Injury Heel - right: No Injury Elbow - left: No Injury Elbow - right: No Injury Device Sites: O2 sat monitor, IV sites Relevant medications: vitamin D3, folic acid, lasix, thera m, miralax, senna, thiamin, potassium phosphate, dilaudid prn Last Bowel Movement: 08/11/21 Admit Weight: 47.95 kg Estimated body mass index is 18.72 kg/m?? as calculated from the following: Height as of this encounter: 160 cm (5' 3). Weight as of this encounter: 47.9 kg (105 lb 11.2 oz). [place] Body Weight: 52.3 kg Usual Body Weight: see below Wt Readings from Last 10 Encounters: 08/08/21 47.9 kg (105 lb 11.2 oz) 06/28/20 41 kg (90 lb 6.2 oz) Assessment: Estimated needs: Calories: 1569 (30 kcal/kg) Protein: 54-78 grams (1.2-1.5 g/kg) - for wound healing Nutrition Focused Physical Exam (NFPE): Performed on 08/11/21 Subcutaneous fat loss at Orbital region: None present Upper arm region (triceps/biceps): Mild Thoracic and lumbar region (ribs, lower back and maxillary line): Not assessed Lean muscle loss to Mu-Ism region (temporalis muscle): None present Clavicle bone region (pectoralis major): None present Dorsal hand (interosseous muscle): Not assessed Shoulder (deltoid): Moderate Scapular bone region (latissimus dorsi, trapezius muscles): Mild Thigh region (quadriceps muscle): Moderate Posterior calf region (gastrocnemius muscle): None present Fluid accumulation: Not assessed Nutrition intake and intake history/Interview: Visited [facility] bedside this morning. She reported aweak appetite which she's been experiencing for a few weeks now. Alongside her decreased appetite, she's experienced a 20-25# weight lost in the last month (per chart review, pt gained wt rather than lost). She stated trying to get 2 meals/day in, typically breakfast and dinner. She does snack on honey nut oat cluster cheerios. She reported no nausea, vomiting, or abdominal pain with eating. Yesterday, she consumed a majority of her breakfast and lunch (616 calories, 32.5 g protein). Observed 5 unopened Ensure bedside, patients states she has trouble opening them, changed to Ensure in a cup. Trialed lfavors with her, she preferred vanilla and will trial coffee. Declined adding more snacks to plan,will try to consume all her Ensures. Will continue to monitor po intake/weight. 08/09: Unable to meet with patient today, attempted x2. Per Hospital Medicine note, patient is experiencing significant signs of withdrawal. Spoke with her RN, patient is taking small bites of her food and sipping on Ensure. Will follow up when patient is more appropriate for interview. Protein-calorie Malnutrition: Not enough data to assess (Derek, JPEN J Parenteral Enteral Nutr. 2011; 36(3): 273-83) Nutrition to continue to follow up while inpatient Thank you, Arabella Sargent Alana Nicholson RN - 08/10/2021 5:50 PM EDT OUTCOME EVALUATION NOTE: OUTCOME SUMMARY: VSS on 3L. A/O x1. Visual hallucinations, Impulsive, trying to get out of bed. Scoring on the ativanscale, prn and scheduled ativan. Neb treatments given as ordered, pt. States this helps her. Unsteady gait, ambulating to bathroom, bm today. INDIVIDUALIZED FALL PREVENTION: Patient is currently a high risk to Fall. Patient educated on bed/chair alarm, demonstrates proper use of call magdaleno and verbalizes understanding of fall preventions implemented. Patient-specific fall risk factors per assessment: [current deficits]: Pain, Medications, Hospital Environment, Impaired Mobility, Recent Surgery Assistance [level of assistance required for transfers and ambulation]: 1 assist with walker Supervision [direct monitoring required during toileting and ADLs]: 1 assist with ADL's Surveillance [continuous indirect monitoring]: Dee Orozco Roundconnie, Nurse Knowledge Exchangeat Bedside, Bed Alarm Set Patrica Galvan, PT - 08/10/2021 2:18 PM EDT Physical Therapy Note Treatment Number PT: 3 Patient profile: Paradise Abel??is a 60 y.o.?female??admitted on 08/06/2021??s/p ground fall d/t tripping over one of her moving boxes. Imaging obtained demonstrating a R femoral neck fx. She is now POD#3 s/p R JACKSON posterior approach performed by Dr. Peterson on day of admission.?? Interval History: actively withdrawing and scoring on CIWA scale, transferred to hospital medicine service (from ortho) Social History: Patient lives alone in a third floor apartment with her cat. Her recently . She has elevator access and no stairs to perform. On the same level as laundry room. Pt normally independent and does not use an assistive device but does own a cane and FWW. Normally on 4LNC but increased PRN for activity. Has home concentrator and portable. Reports that neighbors have offered, and can assist with, IADLs. ?? Precautions/Special Considerations: Full code, WBAT RLE, standard hip precautions (verified with ortho [employer] due to posterior approach), abduction pillow in supine. fall risk, supplemental O2 via NC. ETOH withdrawal. Delirium precautions. ?? Mobility and Positioning Recommendations: ?? Pt. to utilize FWW with 1 assist for ambulation and transfers with nursing. ?? Please encourage up to chair for meal times as able. ?? Pt encouraged to ambulate frequently with staff, getting into the bathroom for toileting and walking out in the gasca >/= 3 times daily as able. ?? Subjective: I can't open the fridge, we need to put my food away. Did you just get off work? I'm talking to that girl over there [no one else in room] Objective: Patient seen for physical therapy and demonstrated the following: Pain: my sides hurt - unable to clarify or localize pain more. Mildly antalgic gait noted with decreasedstance time to R hip/LE Vital Signs: SpO2 (3-6LNC) 90% 3LNC at rest pre activity, 78% on 3LNC, bumped to 6LNC - recovered to >93% withseated rest at 6LNC. Able to wean back to 3LNC after activity HR 90-100sbpm BP mmHg Cognition: drowsy, lethargic, confused but oriented x3, wifty, distractible, poor safety awareness, impulsive, hallucinating, confabulatory. mildly irritable/agitated Self Care: N/A Functional Mobility: Bed Mobility: Supine to Sit: supervised with cues needed for task initiation, to L side EOB Sit to Supine: supervised for safety Transfers: Sit to Stand: CGA with FWW Stand to Sit: CGA with FWW and use of UEs Bed to Chair: N/A Other: none Patient educated in, and cued throughout, functional mobility to ensure safe and complete activities. Gait Training: Gait: Distance: 150 ft Device Used: FWW Level of Assist: CGA-min A Gait Comments: CGA for straight path, min A to negotiate walker around obstacles. Pt noted to be bumping into obstacles, distractible, cues needed throughout, shuffled steps. Unsteady. Tremulous. intermittent eyes closed Stairs: N/A - none to perform at home on DC Patient educated in, and cued throughout, to improve gait pattern, body mechanics, safety, and independence during activity. Balance: Sitting Static: good Sitting Dynamic: fair - intermittent UE support Standing Static: poor/fair - CGA Standing Dynamic / Gait: poor - CGa-min A, unsteady, needs walker Exercises: N/A this date Education: patient educated on role of therapy, use of walker, WBAT, standard hip precautions, safety, ongoingmobility, and DC planning, with poor understanding/demonstration. Will need ongoing reinforcement and education. Patient status, treatment, and mobility recommendations discussed with nursing. Pt left supine in bed with HOB elevated, 3/4 bed rails up, bed alarm on, and call magdaleno in reach following visit. Team Communication: communication with nursing staff pre/post session regarding readiness and response to therapy intervention. Assessment: Paradise Abel was seen today for physical therapy treatment session for continuationof POC. Pt continues to present with confusion, hallucinations, impaired safety, and cognition, likely attributed to active withdrawal from ETOH. Pt impulsive and distractible, making illogical statements today, but overall oriented and mostly redirectable. Able to perform bed mobility ,transfers,and household distance ambulation, but needing CGA-min A and constant cuing for safety. Pt also with desaturation event during activity, but able to recover with rest, ultimately requiring less supplementalO2. Pt with increasing agitation at end of session/mobility, therefore unable to provide therex program per post op protocol. Based on current presentation would be unsafe to return home at this time; however, prior to withdrawal, pt was mobilizing quite well and had cleared to DC home from a PT standpoint. Anticipate that once patient medically stabilizes, she should be able to return home with homePT/OT, home health aide, and supervision/assist from neighbors. Will continue to follow up for ongoing skilled PT during hospital course. Pt will benefit from ongoing therapeutic interventions to achieve therapy goals. Discharge Recommendations: Based on the current findings, Anticipated Discharge Disposition (PT): home with home health, home with supervision (home health aide) when medically ready for hospital discharge. Discharge recommendation is based on the patient's current physical impairments, prior functional status, potential to return to prior level of function, patient motivation, reported home support, potential for functional gains, current level of endurance, reported home environment and anticipated trajectory of progress and may change based on patient progress during this hospitalization. Consult Recommendations: No other consults recommended at this time. Equipment Needs: Anticipated Equipment Needs at Discharge (PT): None Transportation Needs: Car Cleared Physical Therapy? NO Physical Therapy Goals: Goals ongoing as of 08/10/21 unless otherwise noted Goals: To be achieved by 08/16/21: ?? 1. Pt. to demonstrate knowledge of safety limitations and precautions 2. Pt. to demonstrate understanding of appropriate exercises 3. Pt. to perform bed mobility from flat with modified independence using leg sharepoint admin as needed 4. Pt. to perform all transfers with modified independence using FWW 5. Pt. to ambulate 150 feet with supervision and least restrictive assistive device Plan: Therapy Frequency (PT): 1-3 more times for therapy interventions as outlined in initial evaluation. Patient agrees with plan as stated. Time IN / OUT: 7210-5869 Total Minutes, Physical Therapy: 17 Billing Code: x1 TEF Thank you for this consult. Patrica Galvan, PT Pager: [phone] Physical Therapy Inpatient Rehabilitation Department Cheri Perdue MD - 08/10/2021 9:18 AM EDT Hospital Medicine Attending Daily Progress Note Admit Date: 08/06/2021 Hospital Day 4 days Active Hospital Problems Diagnosis ??? Right femoral neck fracture 08/05/21 ??? Postoperative anemia due to acute blood loss ??? Chronic respiratory failure with hypoxia Resolved Hospital Problems No resolved problems to display. PMH Active Non-Hospital Problems Diagnosis ??? Severe protein-calorie malnutrition ??? Hypoxia ??? Hypotension ??? Chest pain Inpatient Medications: Scheduled ??? thiamine 100 mg Oral Daily ??? folic acid 1,000 mcg Oral Daily ??? multivitamin with minerals 1 tablet Oral Daily ??? calcium carbonate 500 mg Oral BID WC ??? cholecalciferol (Vitamin D3) 1,000 Units Oral Daily ??? LORazepam 0.5 mg Intravenous Q8H OSMIN Or ??? LORazepam 1 mg Oral Q8H OSMIN ??? ipratropium-albuteroL 3 mL Nebulization Q6H OSMIN ??? enoxaparin 30 mg Subcutaneous Nightly ??? acetaminophen 1,000 mg Oral Q6H OSMIN ??? gabapentin 300 mg Oral TID ??? busPIRone 5 mg Oral BID ??? sodium chloride 0.9 % (flush) 5 mL Intravenous BID ??? polyethylene glycoL 17 g Oral BID ??? senna-docusate 2 tablet Oral BID ??? metoprolol tartrate 25 mg Oral BID ??? simvastatin 20 mg Oral QPM ??? sirolimus 2 mg Oral Daily ??? lidocaine 3 patch Transdermal Q24H And ??? lidocaine 3 patch Transdermal Q24H ??? budesonide-formoteroL 2 Inhalation Inhalation 2 times per day ??? predniSONE 10 mg Oral Daily ??? furosemide 40 mg Oral Daily ??? DULoxetine DR 60 mg Oral Daily Continuous infusions: PRN: LORazepam OR LORazepam OR LORazepam, HYDROmorphone, sodium chloride 0.9 % (flush), lidocaine, bisacodyl EC, bisacodyL, ondansetron, traZODone, BUpivacaine (pf), ketorolac, cloNIDine Interval History: Transferred from [facility] on [facility] On 3L Dilaudid x 1 Ativan 0.5 x 2 yesterday, 1 overnight at 3am ROS: States feeling OK today - maybe groggy from medicine. Drinks 2 tequila drinks every other day. Denies recent withdrawal if goes without a drink. Denies feeling shaking or nauseous. Pain controlled. Physical Exam Vitals Range last 24 hrs Temperature Temp: [36.5 ??C (97.7 ??F)-36.9 ??C (98.4 ??F)] Heart Rate Heart Rate: [91-101] Blood Pressure BP: (94-140)/(60-81) Respiratory Rate Resp: [16-21] SpO2 SpO2: [93 %-100 %] Intake/Output Summary (Last 24 hours) at 08/10/2021 09 Last data filed at 08/10/2021 0511 Gross per 24 hour Intake 810 ml Output 1425 ml Net -615 ml Patient Vitals for the past 168 hrs: Weight 08/08/21 2100 47.9 kg (105 lb 11.2 oz) Body mass index is 18.72 kg/m??. General - Lying in bed, sleepy but awakens, oriented to place (not intially - but reoriented), month(reoriented after saying September) and year HEENT- Anicteric sclera Neck - Supple CV - RRR, no r/g Lungs - No overt crackles or wheezes Abd - Soft, ND, +BS, non-tender Ext - Warm, no edema; no erythema hip Studies reviewed in eDH. Remarkable for the following: LABS: Last 3 wbc, hgb, hct plt Recent Labs 08/10/21 0625 08/09/21 0808/08/21 0921 WBC 7.0 8.3 9.9* HGB 8.8* 9.0* 9.3* HCT 28.7* 28.7* 29.6* PLATELET 290 232 209 Last 3 Lytes Recent Labs 08/10/21 0608/09/21 0822 08/08/21 0921 NA 133* 134* 131* K 3.6 3.9 4.5 CL 95* 99 98 CO2 31 27 25 BUN 8 9 12 CREATININE 0.42* 0.53* 0.67* Last 3 LFTs No results for input(s): AST, ALT, ALKPHOS, BILITOT, BILIDIR in the last 7068 hours. Last Ca, Mg, Phos Recent Labs 08/10/21 0625 08/09/21 1713 08/09/21 08 CALCIUM 8.5 -- 8.5 PHOS 1.6* < > 1.6* MAGNESIUM -- -- 0.74 < > = values in this interval not displayed. Last 3 Coags Recent Labs 08/06/21 0354 PT 10.2 INR 0.9 PTT 26 Last 3 ProBNP, Trop, CK No results for input(s): CK, TROPONINT, PROBNP in the last 168 hours. Last 3 TFT No results for input(s): TSH in the last 7068 hours. Invalid input(s): T4, FT4 Last 3 Lipids No results for input(s): CHLPL, HDL, LDLCHOL, LDLDIRECT, TRIG in the last 7068 hours. Last 3 HgbA1C No results for input(s): HA1C in the last 7068 hours. Last CRP, SEDRATENo results for input(s): CRP, SEDRATE in the last 7068 hours. FSBG Trend No results for input(s): POCGLU in the last 72 hours. MICRO: No results for input(s): URINECULTURE in the last 720 hours. No results for input(s): GRAMSTAIN, BFCX, LOWERRESPCX, TISSUECX in the last 720 hours. No results for input(s): BLOODCX in the last 720 hours. ECG: No results for input(s): DIAGLINE, QTCCALC in the last 720 hours. VASCULAR: No results for input(s): VBTEXTRPT in the last 720 hours. IMAGING: Results for orders placed or performed during the hospital encounter of 08/06/21 XR Pelvis (Generic) (Exam End: 08/06/2021 11:47 AM) Impression Post RIGHT total hip arthroplasty since the previous study. No radiographic evidence of complication. Thank you for letting us participate in the care of this patient. If you are a health care provider and have any questions regarding this report, please contact the number below. For patients who have questions please contact the health childcare center director that requested your imaging first. Electronically signed by: Alejandro Cortez MD, [facility] ([phone]), at 08/06/2021 11:51 AM XR Chest PA & Lateral (Generic) (Exam End: 08/09/2021 1:26 PM) Impression Diffuse pulmonary edema and cardiomegaly consistent with congestive heart failure. This is on a background of hyperinflation secondary to previously diagnosed lymphangiomyomatosis. Thank you for letting us participate in the care of this patient. If you are a health care provider and have any questions regarding this report, please contact the number below. For patients who have questions please contact the health childcare center director that requested your imaging first. 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 Did well from post-op / ortho perspective, cleared to go home with home health. Nature of her fracture likely related to chronic prednisone use. Plan for outpatient endocrine referral, possibly would benefit from DEXA scan / possible bisphosphonate. ?? Transferred to medicine 08/09 with concern for alcohol withdrawal/DTs in the 72- 92 hour window from last drink. Balance of sedation and ativan as also takes buspar. ?? Her respiratory status is near baseline. CXR suggested CHF but did not appear clinically overloaded and on lasix. If desats below baseline then consider additional diuresis. ? #Concern for alcohol withdrawal #alcohol use -CIWA scale w/ low dose ativan ordered -replete K, Mg, Phos as needed -thiamine / folate / MV -consider BIT team ?? #R femoral neck fracture s/p R JACKSON 08/06/21 -Activity: WBAT RLE, standard hip precautions, abduction pillow while sleeping, otherwise not required -DVT prophylaxis: lovenox 40 mg SQ daily x 4 weeks -Closure: Resorbable sutures -Dressing: mepilex x 7 days ?? #Hx of lymphangioleiomyomatosis #Chronic dyspnea requiring home O2 (3-4L) -symbicort bid -scheduled duoneb q6h -duonebs q4h prn -we do not have aerosolized glycopyrrolate on formulary ??-sirolimus is associated with poor wound healing, but at this point should continue as usual - 2mgqd -continue prednisone 10mg qd -Consider diuresis if desats with CXR 08/09 ?? #Fragility fracture in setting of chronic prednisone use -outpatient endocrine referral placed by orthopedics -Vit D3 1000U qd -calcium carbonate 500mg BID ?? #Hx of peripheral edema and possible edema on CXR -continue lasix 40mg qd ?? #HTN -continue metoprolol tartrate 25mg po bid ?? #HLD -continue simvastatin 20mg po qhs ?? #MDD -continue duloxetine 60mg qd -continue trazodone 50mg qhs -continue buspar 5mg qam ?? IV access: PIV DVT PPX: Lovenox Anticipated Disposition: Home per PT, when out of withdrawal Team Pager( Coverage 10/12): #[phone] PCP: FRANCE Chen [phone] Attestation: IPI Certification I certify that I am a [facility] credentialed attending provider with admitting privileges and that the patient meets or has met medical necessity to require an inpatient IPI level of care meeting a minimum of two midnights or is on the [facility] inpatient only procedure list (status C) due to: EtOH w/d Cheri Perdue MD 08/10/2021 Ngozi Rinaldi MD - 08/10/2021 6:27 AM EDT ORTHOPAEDIC SURGERY INPATIENT PROGRESS NOTE Patient Name: Paradise Abel Age: 60 y.o. Surgery/Issue: s/p GLF 08/05 p/w R FNFx.Right Total Hip Arthroplasty Attending: Dr. Peterson Date of surgery: 08/06/2021 SUBJECTIVE / INTERVAL HISTORY: NAEON. Transferred to hospital medicine given ongoing AMS, likely alcohol withdrawal related and persistent hypoxia. Patient is resting peacefully this AM. Cleared PT. Pain well controlled. VSS, afebrile FOCUSED REVIEW OF SYSTEMS: as above. Active Hospital Problems Diagnosis ??? Right femoral neck fracture 08/05/21 ??? Postoperative anemia due to acute blood loss ??? Chronic respiratory failure with hypoxia Resolved Hospital Problems No resolved problems to display. Active Non-Hospital Problems Diagnosis ??? Severe protein-calorie malnutrition ??? Hypoxia ??? Hypotension ??? Chest pain MEDICATIONS: ??? thiamine (Vitamin B1) tablet 100 mg ??? folic acid (Folvite) tablet 1,000 mcg ??? multivitamin with minerals (Thera M) tablet 1 tablet ??? calcium carbonate (Tums) chewable tablet 500 mg ??? cholecalciferol (Vitamin D3) (Vitamin D3) tablet 1,000 Units ??? LORazepam (Ativan) tablet 0.5-1.5 mg OR LORazepam (Ativan) (2 mg/mL) injection 0.5-1.5 mg OR LORazepam (Ativan) (2 mg/mL) injection 0.5-1.5 mg ??? LORazepam (Ativan) tablet 1 mg OR LORazepam (Ativan) (2 mg/mL) injection 0.5 mg ??? ipratropium-albuteroL (Duoneb) 0.5 mg-3 mg(2.5 mg base)/3 mL nebulizer solution 3 mL ??? enoxaparin (Lovenox) (30 mg/0.3 mL) subcutaneous injection 30 mg ??? HYDROmorphone (Dilaudid) tablet 1-2 mg ??? acetaminophen (Tylenol) tablet 1,000 mg ??? gabapentin (Neurontin) capsule 300 mg ??? busPIRone (Buspar) tablet 5 mg ??? sodium chloride 0.9 % (flush) (BD PosiFlush Normal Saline 0.9) flush 5 mL ??? sodium chloride 0.9 % (flush) (BD PosiFlush Normal Saline 0.9) flush 5-20 mL ??? lidocaine (Xylocaine) 1% (10 mg/mL) injection 3 mg ??? bisacodyl EC (Dulcolax) tablet 10 mg ??? bisacodyL (Dulcolax) suppository 10 mg ??? polyethylene glycoL (Miralax) packet 17 g ??? senna-docusate (Pericolace) 8.6-50 mg per tablet 2 tablet ??? ondansetron (pf) (Zofran) (2 mg/mL) injection 4 mg ??? metoprolol tartrate (Lopressor) tablet 25 mg ??? simvastatin (Zocor) tablet 20 mg ??? sirolimus (Rapamune) tablet 2 mg ??? lidocaine (Lidoderm) 5% patch 3 patch AND lidocaine (Lidoderm) topical patch REMOVAL ??? budesonide-formoteroL (Symbicort) 80-4.5 mcg/actuation inhaler 2 Inhalation ??? predniSONE (Deltasone) tablet 10 mg ??? furosemide (Lasix) tablet 40 mg ??? DULoxetine DR (Cymbalta) capsule 60 mg ??? traZODone (Desyrel) tablet 50 mg ??? BUpivacaine (pf) (Marcaine) (2.5 mg/mL) 0.25% injection ??? ketorolac (Toradol) (30 mg/mL) injection ??? cloNIDine (pf) (Duraclon) (100 mcg/mL) Epidural injection OBJECTIVE: Temp: [36.5 ??C (97.7 ??F)-36.9 ??C (98.4 ??F)] Heart Rate: [91-101] Resp: [16-21] BP: (94-150)/(60-96) Intake/Output Summary (Last 24 hours) at 08/10/2021 0627 Last data filed at 08/10/2021 0511 Gross per 24 hour Intake 1010 ml Output 1425 ml Net -415 ml Body mass index is 18.72 kg/m??. PE: General: NAD, awake/alert CV: RRR assessed peripherally Resp: Breathing comfortably on 4L NC (baseline 1-3L NC at home) RLE: Dressing c/d/i. Motor intact to EHL, FHL, TA. Sensation intact in foot/calf/thigh. Brisk capillary refill distally. Lab Results Component Value Date NA 134 (L) 08/09/2021 K 3.9 08/09/2021 CL 99 08/09/2021 CO2 27 08/09/2021 BUN 9 08/09/2021 CREATININE 0.53 (L) 08/09/2021 GLUCOSE 101 08/09/2021 CALCIUM 8.5 08/09/2021 Lab Results Component Value Date WBC 8.3 08/09/2021 HGB 9.0 (L) 08/09/2021 HCT 28.7 (L) 08/09/2021 MCV 107.1 (H) 08/09/2021 PLATELET 232 08/09/2021 Lab Results Component Value Date INR 0.9 08/06/2021 Imaging: AP Pelvis The right hip is reduced. There is no evidence of intra-op fracture. ASSESSMENT / PLAN: Paradise Abel is a 60 y.o. female 4 Days Post-Op s/p right JACKSON after FNFx, progressing well with stable vitals. Remains in hospital d/t AMS likely 2/2 alcohol withdrawal and hypoxia on top of chronic lung disease. Transferred to hospital medicine. As for the hip, doing very well- cleared PT, pain well controlled. At this time, orthopaedics will not routinely round on this patient. Please reach out with any questions or concerns. Activity: WBAT RLE, standard hip precautions, abduction pillow while sleeping, otherwise not required DVT prophylaxis: lovenox 40 mg SQ daily x 4 weeks Closure: Resorbable sutures Dressing: mepilex x 7 days Antibiotics: periop ancef Ngozi Rinaldi MD 08/10/2021 Future Appointments Date Time Provider Department Center 09/04/2021 11:30 AM [facility] DX ROOM 2 MH Xray [facility] Rad 09/04/2021 1:00 PM Bre Ramirez PA [facility] Arabella Sargent - 08/09/2021 2:12 PM EDT Nutrition Initial Note Patient admitted with hip fracture s/p R JACKSON, relevant medical history includes 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 Paradise Abel is a 60 y.o. female Reason for intervention: Malnutrition evaluation Nutrition Recommendations: Regular diet Encourage good po intake Ensure Enlive TID Monitor weight Monitor lytes - replete as needed Active Orders Diet Regular diet Frequency: Effective Now Number of Occurrences: Until Specified Nourishments Adult diet Oral Supplements Ensure Enlive Frequency: TID Number of Occurrences: Until Specified Order Comments: Flavors of choice Lab Results Component Value Date NA 134 (L) 08/09/2021 K 3.9 08/09/2021 CL 99 08/09/2021 CO2 27 08/09/2021 BUN 9 08/09/2021 CREATININE 0.53 (L) 08/09/2021 ESTGFR 103 08/09/2021 MAGNESIUM 0.74 08/09/2021 CALCIUM 8.5 08/09/2021 PHOS 1.6 (L) 08/09/2021 No results found for: POCGLU Skin Status: Shift Pressure Injury Prevention Occiput: No Injury Thoracic Spine: No Injury Sacral: No Injury Ischial - left: No Injury Ischial - right: No Injury Heel - left: No Injury Heel - right: No Injury Elbow - left: No Injury Elbow - right: No Injury Device Sites: O2 sat monitor, oxygen tubing, IV sites Relevant medications: vitamin D3, folic acid, lasix, thera m, miralax, senna, thiamin, potassium phosphate, dilaudid prn Last Bowel Movement: 08/08/21 Admit Weight: 47.95 kg Estimated body mass index is 18.72 kg/m?? as calculated from the following: Height as of this encounter: 160 cm (5' 3). Weight as of this encounter: 47.9 kg (105 lb 11.2 oz). [place] Body Weight: 52.3 kg Usual Body Weight: see below Wt Readings from Last 10 Encounters: 08/08/21 47.9 kg (105 lb 11.2 oz) 06/28/20 41 kg (90 lb 6.2 oz) Assessment: Estimated needs: Calories: 0894-7373 (25-30 kcal/kg) Protein: 54-78 grams (1.2-1.5 g/kg) - for wound healing Nutrition Focused Physical Exam (NFPE): Not performed Nutrition intake and intake history/Interview: Unable to meet with patient today, attempted x2. Per Hospital Medicine note, patient is experiencing significant signs of withdrawal. Spoke with her RN, patient is taking small bites of her food and sipping on Ensure. Will follow up when patient is more ap propriate for interview. Protein-calorie Malnutrition: Not enough data to assess (Derek JPEN J Parenteral Enteral Nutr. 2012 September; 36(3): 273-83) Nutrition to continue to follow up while inpatient Thank you, Arabella Sargent Tereza Schuster OT - 08/09/2021 1:37 PM EDT Occupational Therapy Note Document Type: contact Total Minutes, Occupational Therapy: 0 Reason: Discussed pt's status with the RN this am. Per report pt is scorring an 8 on the CIWA, increasingly impulsive, tremulous, delirious, and hallucinating. Will defer at this time and f/u as appropriate/able. Pager: [phone] Tereza Schuster, OTR/L 08/09/2021 Occupational Therapy Rehabilitation Department Patrica Galvan, PT - 08/09/2021 1:37 PM EDT Physical Therapy Note Treatment Number PT: 2 Patient profile: Paradise Abel??is a 60 y.o.?female??admitted on 08/06/2021??s/p ground fall d/t tripping over one of her moving boxes. Imaging obtained demonstrating a R femoral neck fx. She is now POD#3 s/p R JACKSON posterior approach performed by Dr. Peterson on day of admission.?? Interval History: actively withdrawing and scoring on CIWA scale, transferred to hospital medicine service (from ortho) Social History: Patient lives alone in a third floor apartment with her cat. Her recently . She has elevator access and no stairs to perform. On the same level as laundry room. Pt normally independent and does not use an assistive device but does own a cane and FWW. Normally on 4LNC but increased PRN for activity. Has home concentrator and portable. Reports that neighbors have offered, and can assist with, IADLs. ?? Precautions/Special Considerations: Full code, WBAT RLE, standard hip precautions (verified with ortho WATER TREATMENT PLANT SUPERVISOR due to posterior approach), abduction pillow in supine. fall risk, supplemental O2 via NC. ETOH withdrawal. Delirium precautions. ?? Mobility and Positioning Recommendations: ?? Pt. to utilize FWW with 1 assist for ambulation and transfers with nursing. ?? Please encourage up to chair for meal times as able. ?? Pt encouraged to ambulate frequently with staff, getting into the bathroom for toileting and walking out in the gasca >/= 3 times daily as able. ?? Subjective: I need to wash Objective: Patient seen for physical therapy and demonstrated the following: Pain: Noted to fingers and toes and R hip, generalized pain, did not rate Vital Signs: SpO2 (4LNC) 89% HR 90 bpm BP mmHg Cognition: drowsy, confused appearing, wifty, distractible, poor safety awareness ,disoriented to situation and place. Self Care: needing assistance to wash up at sink Functional Mobility: Bed Mobility: Supine to Sit: N/A pt OOB to bathroom pre PT Sit to Supine: min assistance for LEs into bed Transfers: Sit to Stand: CGA with FWW Stand to Sit: CGA with FWW and use of UEs Bed to Chair: N/A Other: none Patient educated in, and cued throughout, functional mobility to ensure safe and complete activities. Gait Training: Gait: Distance: 10 feet in room from bathroom to bed Device Used: FWW Level of Assist: CGA-min A Gait Comments: CGA for straight path, min A to negotiate walker around obstacles. Pt noted to be bumping into obstacles, distractible, cues needed throughout, shuffled steps. Unsteady. Tremulous Stairs: N/A - none to perform at home on DC Patient educated in, and cued throughout, to improve gait pattern, body mechanics, safety, and independence during activity. Balance: Sitting Static: good Sitting Dynamic: fair - intermittent UE support Standing Static: fair, CGA needed. Standing Dynamic / Gait: poor/fair - unsteady with gait, requires walker, CGA Exercises: N/A this date Education: patient educated on role of therapy, use of walker, WBAT, standard hip precautions, safety, ongoingmobility, and DC planning, with poor understanding/demonstration. Will need ongoing reinforcement and education. Patient status, treatment, and mobility recommendations discussed with nursing. Pt left supine in bed with HOB elevated, 3/4 bed rails up, bed alarm on, and call magdaleno in reach following visit. Team Communication: communication with nursing staff pre/post session regarding readiness and response to therapy intervention. Assessment: Paradise Abel was seen today for physical therapy treatment session for continuationof POC. Pt presented in bathroom with nursing staff, having mobilized without assistance (bed alarm off), but rather unsafely. PT intervened to provide assistance and device for increased safety/stability. Pt presented with increased confusion and disorientation. Pt with difficulty sequencing and planning motor activities. Poor safety awareness noted throughout, requiring increased cues and assistance for mobility. Anticipate pt actively withdrawing, with hopes that her mobility status will continueto improve once stable. Expect her to be able to DC home with supports (assist from neighbors, home health aide, and home PT/OT), when medically stable, so long as mobility returns to pre-withdrawal presentation. Will continue to follow up for ongoing skilled PT during hospital course. Pt will benefit from ongoing therapeutic interventions to achieve therapy goals. Discharge Recommendations: Based on the current findings, Anticipated Discharge Disposition (PT): home with home health, home with supervision (home health aide) when medically ready for hospital discharge. Discharge recommendation is based on the patient's current physical impairments, prior functional status, potential to return to prior level of function, patient motivation, reported home support, potential for functional gains, current level of endurance, reported home environment and anticipated trajectory of progress and may change based on patient progress during this hospitalization. Consult Recommendations: No other consults recommended at this time. Equipment Needs: Anticipated Equipment Needs at Discharge (PT): None Transportation Needs: Car Cleared Physical Therapy? NO Physical Therapy Goals: Goals ongoing as of 08/09/21 unless otherwise noted Goals: To be achieved by 08/16/21: ?? 1. Pt. to demonstrate knowledge of safety limitations and precautions 2. Pt. to demonstrate understanding of appropriate exercises. (MET 08/08) 3. Pt. to perform bed mobility from flat with modified independence using leg sharepoint admin as needed 4. Pt. to perform all transfers with modified independence using FWW (MET 08/08) 5. Pt. to ambulate 150 feet with supervision and least restrictive assistive device (MET 08/08)?? Plan: Therapy Frequency (PT): 1-3 more times for therapy interventions as outlined in initial evaluation. Patient agrees with plan as stated. Time IN / OUT: 7769-5154 Total Minutes, Physical Therapy: 10 Billing Code: x1 TEF Thank you for this consult. Patrica Galvan, PT Pager: [phone] Physical Therapy Inpatient Rehabilitation Department Carlos Odell - 08/09/2021 12:43 PM EDT [facility] Encounter Note Patient Name: Paradise Abel : [id number] MR#: [id number] Admit Date: 08/06/2021 12:25 AM Hospital Day 3 days Narrative: A response to a page from patient's nurse for a requested for a Finance Assistant per patient. Assessment: Patient is lying in bed. Patient responded. Patient says, I am feeling better. Patient says, she was in her kitchen walking and turned and tripped over a box and fell. Patient broke her rib. Patient sounds positive, faithful and hopeful. Patient wants prayer, Sacrament of the sick and blessing. Patient fell asleep. Intervention and Outcome: I offered patient Pastoral presence, Empathetic listening, Spiritual/Emotional support and encouragement. I prayed for patient, gave her Anointing of the sick and blessing. Patient fell asleep. Follow-up: As needed. Time in Direct Care: Hilario Odell 08/09/2021 Ngozi Rinaldi MD - 08/09/2021 6:56 AM EDT ORTHOPAEDIC SURGERY INPATIENT PROGRESS NOTE Patient Name: Paradise Abel Age: 60 y.o. Surgery/Issue: s/p GLF 08/05 p/w R FNFx.Right Total Hip Arthroplasty Attending: Dr. Peterson Date of surgery: 08/06/2021 SUBJECTIVE / INTERVAL HISTORY: Scoring on CIWA scale and ativan 2 mg given o/n which appropriately helped. Will continue to monitor. Requiring 6L O2 at night and with ambulation sating 96. A little hypertensive, but other VSS. Afebrile. Resting peacfully. Hospital medicine signed off FOCUSED REVIEW OF SYSTEMS: as above. Active Hospital Problems Diagnosis ??? Right femoral neck fracture 08/05/21 ??? Postoperative anemia due to acute blood loss ??? Chronic respiratory failure with hypoxia Resolved Hospital Problems No resolved problems to display. Active Non-Hospital Problems Diagnosis ??? Severe protein-calorie malnutrition ??? Hypoxia ??? Hypotension ??? Chest pain MEDICATIONS: ??? ipratropium-albuteroL (Duoneb) 0.5 mg-3 mg(2.5 mg base)/3 mL nebulizer solution 3 mL ??? enoxaparin (Lovenox) (30 mg/0.3 mL) subcutaneous injection 30 mg ??? HYDROmorphone (Dilaudid) tablet 1-2 mg ??? acetaminophen (Tylenol) tablet 1,000 mg ??? gabapentin (Neurontin) capsule 300 mg ??? busPIRone (Buspar) tablet 5 mg ??? sodium chloride 0.9 % (flush) (BD PosiFlush Normal Saline 0.9) flush 5 mL ??? sodium chloride 0.9 % (flush) (BD PosiFlush Normal Saline 0.9) flush 5-20 mL ??? lidocaine (Xylocaine) 1% (10 mg/mL) injection 3 mg ??? bisacodyl EC (Dulcolax) tablet 10 mg ??? bisacodyL (Dulcolax) suppository 10 mg ??? polyethylene glycoL (Miralax) packet 17 g ??? senna-docusate (Pericolace) 8.6-50 mg per tablet 2 tablet ??? ondansetron (pf) (Zofran) (2 mg/mL) injection 4 mg ??? metoprolol tartrate (Lopressor) tablet 25 mg ??? simvastatin (Zocor) tablet 20 mg ??? sirolimus (Rapamune) tablet 2 mg ??? lidocaine (Lidoderm) 5% patch 3 patch AND lidocaine (Lidoderm) topical patch REMOVAL ??? budesonide-formoteroL (Symbicort) 80-4.5 mcg/actuation inhaler 2 Inhalation ??? predniSONE (Deltasone) tablet 10 mg ??? furosemide (Lasix) tablet 40 mg ??? DULoxetine DR (Cymbalta) capsule 60 mg ??? traZODone (Desyrel) tablet 50 mg ??? BUpivacaine (pf) (Marcaine) (2.5 mg/mL) 0.25% injection ??? ketorolac (Toradol) (30 mg/mL) injection ??? cloNIDine (pf) (Duraclon) (100 mcg/mL) Epidural injection OBJECTIVE: Temp: [36.7 ??C (98.1 ??F)-36.8 ??C (98.3 ??F)] Heart Rate: [84-109] Resp: [18-22] BP: (106-146)/(72-95) Intake/Output Summary (Last 24 hours) at 08/09/2021 0656 Last data filed at 08/09/2021 0357 Gross per 24 hour Intake 620 ml Output 2000 ml Net -1380 ml Body mass index is 18.72 kg/m??. PE: General: NAD, awake/alert CV: RRR assessed peripherally Resp: Breathing comfortably on 4L NC (baseline 1-3L NC at home) RLE: Dressing c/d/i. Motor intact to EHL, FHL, TA. Sensation intact in foot/calf/thigh. Brisk capillary refill distally. Lab Results Component Value Date NA 131 (L) 08/08/2021 K 4.5 08/08/2021 CL 98 08/08/2021 CO2 25 08/08/2021 BUN 12 08/08/2021 CREATININE 0.67 (L) 08/08/2021 GLUCOSE 194 08/08/2021 CALCIUM 8.2 (L) 08/08/2021 Lab Results Component Value Date WBC 9.9 (H) 08/08/2021 HGB 9.3 (L) 08/08/2021 HCT 29.6 (L) 08/08/2021 MCV 110.4 (H) 08/08/2021 PLATELET 209 08/08/2021 Lab Results Component Value Date INR 0.9 08/06/2021 Imaging: AP Pelvis The right hip is reduced. There is no evidence of intra-op fracture. ASSESSMENT / PLAN: Paradise Abel is a 60 y.o. female 3 Days Post-Op s/p right JACKSON after FNFx, progressing well with stable vitals. Scoring on CIWA - now concerns for alcohol withdrawal - we will continue to monitor. Obtain CXR and lat decub position to assess for fluid retention. Activity: WBAT RLE, standard hip precautions, abduction pillow while sleeping, otherwise not required DVT prophylaxis: lovenox 40 mg SQ daily x 4 weeks Closure: Resorbable sutures Dressing: mepilex x 7 days Antibiotics: periop ancef Ngozi Rinaldi MD 08/09/2021 Future Appointments Date Time Provider Department Center 09/04/2021 11:30 AM [facility] DX ROOM 2 MH Xray [facility] Rad 09/04/2021 1:00 PM Bre Ramirez PA [facility] Arabella Gutierrez RN - 08/08/2021 7:41 PM EDT OUTCOME EVALUATION NOTE: OUTCOME SUMMARY: Pt A&O x 4, VSS on 4-5 liters oxygen. Pt continues to desat with activity. O2 sats sown to 82-85% when up. Improvement after using NRB when out of bed. Lung sounds CTA with dim bases. Pt with knownhx of ETOH abuse disorder, continuting Ativan Assessment Scale. Pt complains of seeing bugs moving in light tonight. This RN noted that there is a bug in over head light, but it is not moving and has not moved all day. Mild tremors noted this afternoon. Providers aware. Will continue to monitor. Providers aware of oxygen saturations. Pt up with SBA and FWW with steady gait. Right hip incision dressing C/D/I. Ice applied intermittentlyPatient progressing towards d/c goals appropriately at this time. Patient's pain adequately controlled with scheduled and PRN medications, see MAR for medications given. Will continue to monitor and help patient reach d/c goals. PLAN MOVING FORWARD: Pain control Mobilize PT/OT Ativan Assessment Scale Continue to wean oxygen. D/C planning INDIVIDUALIZED FALL PREVENTION: Patient is currently a high risk to Fall. Patient educated on bed/chair alarm, demonstrates proper use of call magdaleno and verbalizes understanding of fall preventions implemented. Patient-specific fall risk factors per assessment: [current deficits]: Walker, Pain, Medications, Hospital Environment, Impaired Mobility, Recent Surgery Assistance [level of assistance required for transfers and ambulation]: 1 assist with FWW Supervision [direct monitoring required during toileting and ADLs]: Eyes on with ADL's Surveillance [continuous indirect monitoring]: Masimo, Purposeful Rounding, Nurse Knowledge Exchangeat Bedside, Bed Alarm Set Patrica Galvan PT - 08/08/2021 3:27 PM EDT Physical Therapy Note Treatment Number PT: 2 Patient profile: Paradise Abel??is a 60 y.o.?female??admitted on 08/06/2021??s/p ground fall d/t tripping over one of her moving boxes. Imaging obtained demonstrating a R femoral neck fx. She is now POD#2 s/p R JACKSON posterior approach performed by Dr. Peterson on day of admission.?? Interval History: ongoing O2 needs Social History: Patient lives alone in a third floor apartment with her cat. Her recently . She has elevator access and no stairs to perform. On the same level as laundry room. Pt normally independent and does not use an assistive device but does own a cane and FWW. Normally on 4LNC but increased PRN for activity. Has home concentrator and portable. Reports that neighbors have offered, and can assist with, IADLs. ?? Precautions/Special Considerations: Full code, WBAT RLE, standard hip precautions (verified with ortho WATER TREATMENT PLANT SUPERVISOR due to posterior approach), abduction pillow in supine. Sherman catheter, fall risk, supplemental O2 via NC ?? Mobility and Positioning Recommendations: ?? Pt. to utilize FWW with SBA for ambulation and transfers with nursing. ?? Please encourage up to chair for meal times as able. ?? Pt encouraged to ambulate frequently with staff, getting into the bathroom for toileting and walking out in the gasca >/= 3 times daily as able. ?? Subjective: I'd like to work with you again, but if someone needs my hospital room I can go home today Objective: Patient seen for physical therapy and demonstrated the following: Pain: Number Location At rest 7/10 R hip With activity 7/10 R hip Vital Signs: SpO2 (5-6LNC at rest; NRB 15L with activity) 90% at rest pre activity 5LNC; 88- 92% NRB with activity; 87% after activity on NC. HR 90-100s bpm BP mmHg Cognition: WFLS, alert and oriented, pleasant demeanor Self Care: N/A Functional Mobility: Bed Mobility: Supine to Sit: N/A pt OOB to chair pre PT Sit to Supine: N/A pt left OOB to chair Transfers: Sit to Stand: modified independent using UEs to push up from chair, FWW in front Stand to Sit: modified independent using UEs for control Bed to Chair: N/A Other: none Patient educated in, and cued throughout, functional mobility to ensure safe and complete activities. Gait Training: Gait: Distance: 150 feet Device Used: FWW Level of Assist: supervised, assist for O2 Gait Comments: no overt LOB, decreased minh/gait speed, no rest breaks needed. Cues for PLB. NRB in place per respiratory. Mildly antalgic gait pattern noted Stairs: N/A - none to perform at home on DC Patient educated in, and cued throughout, to improve gait pattern, body mechanics, safety, and independence during activity. Balance: Sitting Static: good Sitting Dynamic: good Standing Static: good Standing Dynamic / Gait: fair/good with single UE support PRN. Able to wash ahnds without LOB in standing Exercises: X10 hamstring sets, quadriceps sets, gluteal sets, adductor sets, long arc quad, ankle pumps, heel slides - handout provided ?? X10 IS - heavy cuing for technique ?? Education: patient educated on role of therapy, use of walker, WBAT, standard hip precautions, leg sharepoint admin, therex, ongoing mobility, and DC planning, with good understanding/demonstration. Patient status, treatment, and mobility recommendations discussed with nursing. Pt left in bedside recliner chair, with all needs met, with call magdaleno in reach and with chair alarm active following visit. Team Communication: communication with nursing staff pre/post session regarding readiness and response to therapy intervention. Assessment: Paradise Kellie Abel was seen today for physical therapy treatment session for continuationof POC. Pt continues to be pleasant and motivated to participate in therapy. Pt is progressing well,in terms of mobility. Able to tolerate further ambulation today, needing less assistance. Currently,she is able to mobilize at a supervision-modified independence level. Despite improving physical andmobility status, pt with ongoing respiratory impairments. Pt continues to present with desaturation during activity/exertion, even on NRB mask. Will continue to follow up during hospital course if to remain admitted, otherwise OK to DC home from PT standpoint when respiratory status stabilized. Pt will benefit from ongoing therapeutic interventions to achieve therapy goals. Discharge Recommendations: Based on the current findings, Anticipated Discharge Disposition (PT): home with home health, home with supervision when medically ready for hospital discharge. Discharge recommendation is based on the patient's current physical impairments, prior functional status, potential to return to prior level of function, patient motivation, reported home support, potential for functional gains, current level of endurance, reported home environment and anticipated trajectory of progress and may change based on patient progress during this hospitalization. Consult Recommendations: No other consults recommended at this time. Equipment Needs: Anticipated Equipment Needs at Discharge (PT): None (has all DME) Transportation Needs: Car Cleared Physical Therapy? Yes - but will follow up if remains hospitalized Physical Therapy Goals: Goals ongoing as of 08/08/21 unless otherwise noted Goals: To be achieved by 08/16/21: ?? 1. Pt. to demonstrate knowledge of safety limitations and precautions 2. Pt. to demonstrate understanding of appropriate exercises. (MET 08/08) 3. Pt. to perform bed mobility from flat with modified independence using leg sharepoint admin as needed 4. Pt. to perform all transfers with modified independence using FWW (MET 08/08) 5. Pt. to ambulate 150 feet with supervision and least restrictive assistive device (MET 08/08)?? Plan: Therapy Frequency (PT): 1-3 more times for therapy interventions as outlined in initial evaluation. Patient agrees with plan as stated. Time IN / OUT: 7386-2839 Total Minutes, Physical Therapy: 39 Billing Code: x3 TEF Thank you for this consult. Patrica Galvan, PT Pager: [phone] Physical Therapy Inpatient Rehabilitation Department Kem Akers FOREST BOTANY INSTRUCTOR - 08/08/2021 2:59 PM EDT FOREST BOTANY INSTRUCTOR met with pt to explore her support network and offer emotional support. Pt shared that her Vidal May and she continues to have difficulty processing this loss. Pt shared that she is agreeable to engage in outpatient clinical therapy just unfamiliar with available options. Pt also shared that she has a little problem with drinking. Pt was unwilling to disclose the amount of consumption, however, she reported that she is hoping to decrease her daily consumption and requested information to assist her. Retail Sales Consultant presented pt with [employer] booklet and reviewed it, specifically focusing on the resource page. Retail Sales Consultant also provided pt with a list of clinical therapists in her geographic area. Pt appreciative of this information. She reports that her brother (Jon HAGER) will be able to transport her home upon discharge. Pt also shared that she has met two individuals in her complex that she has become friendly with; she states these indiv. Will be able to assist her, however the extent of this is unclear as these relationshipsare new. Tereza Schuster OT - 08/08/2021 9:17 AM EDT Occupational Therapy Treatment Note Treatment Number OT: 2 Patient Dx: Paradise Abel is a 60 y.o. female admitted on 08/06/2021 s/p ground fall d/t trippingover one of her moving boxes. Imaging obtained demonstrating a R femoral neck fx. She is now POD#2 s/p R JACKSON posterior approach performed by Dr. Peterson on day of admission. Social History: Patient lives alone with her cat in a 3rd fl apartment with elevator access. No LEIDY the building. Laundry on the 3rd fl. Pt reported she has a walk-in shower and sleeps in a flat bed. She is unsure if she has any AD in her shower d/t just moving. Friends live in the building and are supportive. DME: [employer] [facility] Baseline ADL/Mobility: I ADLs, I mobility no AD, on 3-4L NC with portable. Pt also has a stationary condenser. I driving and IADLs. X1 fall in the past 6 months which resulted in her current admission ?? Precautions/Special Considerations: Standard precautions (wide BRUCE sit><stand), Abduction pillow at rest, 6-8L O2 via NC Interval History: Per Ortho 08/08: KERENEON. Resting well this AM. Pain well controlled. desaturaton event 76 -->83 increased O2 to 6LNC, saturation increased to 96 after discussing with nurse, now NC 4L this AM. Worked with PT/OT, anticipate DC to home, but will continue to work PT/OT while here. S: I am usually on 4L at home, will increase to 5 with activity sometimes O: Patient seen for skilled OT treatment, and demonstrated the following: ?? Self-care: ?? I do[facility] - good dynamic sitting balance ?? I washing UB/face sitting EOB - declined washing LB ?? S [facility] pants sitting EOB, S performing pant hike - cued for dressing surgical side first for ease ?? Set up oral hygiene on her tray table at the conclusion of the session ?? Required increased time and frequent rest breaks for integration of PLB to ensure her SpO2 levelsstabilized ?? Functional Mobility: ?? Supine>sit: I with use of leg sharepoint admin and HOB >/= 40* ?? Sit>stand: S from EOB with FWW, able to maintain wide BRUCE with transition ?? Ambulation: S from bed>recliner and FWW, no LOB and slow gait - good safety awareness by verbalizing where her O2 tubing is located ?? Stand>sit: S onto her recliner with good eccentric control - encouraged use of hand placement onto armrests for safety - left sitting up in her recliner ?? Cognition: ?? Behavior / Mood: alert and cooperative ?? Alert and oriented to: person, place, time and situation ?? Follows commands: multi step and 100% of the time ?? Attention: WFL ?? Safety awareness: WFL, fully aware of deficits and good safety precautions ?? Vision: ?? WNL/WFL ?? corrective lenses for reading ?? Endurance: Limited d/t continuously desaturating SpO2 with activity ?? Vitals: ?? SpO2: 5L 89-92% (rest) 5L 79-85% (activity) 6L 87-88% (resting EOB with PLB) 6L 83-85% (activity EOB) 7L 85% (activity) 8L 88-90% (activity and rest post activity with PLB) ?? HR: 100bpm (rest) 120-135bpm (tachy with activity) ?? Strength/ROM: Hand dominance: right Bilateral UEs are within functional limitations for AROM and strength LE limitations: WBAT RLE with Standard precautions (wide BRUCE sit><stand) Pain: Pt endorsing high levels of pain 7/10 pain in her hip - did not hinder her participation in today's session Education: Pt/family/caregiver education ongoing regarding: Staff Communication: Patient status, treatment, and mobility recommendations discussed with nursing/other staff. Role of occupational therapy/rehabilitation, Transfers, ADL, Breathing exercises, Positioning, Safety, Precautions/Protocol, Functional Mobility, Activity pacing/Energy conservation, Balance, Recommendations, Family training and Discharge planning and verbalizes and demonstrates understanding ASSESSMENT: Pt seen this am for continuation of POC. Overall, pt is making good progress functional but has been severely limited by her endurance and unstable SpO2 levels, I.e. requiring O2 increased to 8L via NC to stabilize her SpO2 during today's session. Additionally, pt became tachy with minimalparticipation in her BADLs. I anticipate once her respiratory status stabilizes she will quickly in her therapeutic interventions. Pt will benefit from ongoing therapeutic interventions to achieve pt'sand therapy goals. Recommendation upon d/c is for the pt to return home with support/assistance fromfriends and JOB RECRUITER, home OT when performing her daily tasks. Pt in agreement with POC. Equipment needs at discharge: walker, front wheeled, shower chair Anticipated Discharge Disposition: home with home health, home with supervision (Home OT) Daily schedule / Staff Recommendations: ?? Utilize upright chair position using bed features or transfer to recliner chair as appropriate with 1A, ambulate as tolerated ?? Encourage participation in ADL's by providing set up A on tray table and physical assist only as needed Occupational Therapy Goals: To be achieved by 08/21/21. Patient will stand at sink level with supervision x10 min for ADLs. Patient will dress lower body indep with adaptive equipment prn. Partially Met Patient will complete all aspects of toileting I, AE PRN Patient will ambulate to the bathroom with supervision, assistive device as needed. Patient will demonstrate energy conservation principals with all ADLs indep. Pt will both verbalize and demo hip precautions I Met 08/08 Pt will maintain SpO2 88-92% on home O2 when performing her daily tasks Therapy Frequency (OT): 1-3 more times Total Minutes, Occupational Therapy: 29 (x2 [facility] [id number]) Pager: [phone] Tereza Schuster, OTR/L 08/08/2021 Occupational Therapy Rehabilitation Department Ngozi Rinaldi MD - 08/08/2021 6:44 AM EDT ORTHOPAEDIC SURGERY INPATIENT PROGRESS NOTE Patient Name: Paradise Abel Age: 60 y.o. Surgery/Issue: s/p GLF 08/05 p/w R FNFx.Right Total Hip Arthroplasty Attending: Dr. Peterson Date of surgery: 08/06/2021 SUBJECTIVE / INTERVAL HISTORY: NAEON. Resting well this AM. Pain well controlled. desaturaton event 76 -->83 increased O2 to 6LNC, saturation increased to 96 after discussing with nurse, now NC 4L this AM. Worked with PT/OT, anticipate DC to home, but will continue to work PT/OT while here. VSS, Afebrile. Hospital medicine following. FOCUSED REVIEW OF SYSTEMS: as above. Active Hospital Problems Diagnosis ??? Right femoral neck fracture 08/05/21 ??? Postoperative anemia due to acute blood loss ??? Chronic respiratory failure with hypoxia Resolved Hospital Problems No resolved problems to display. Active Non-Hospital Problems Diagnosis ??? Severe protein-calorie malnutrition ??? Hypoxia ??? Hypotension ??? Chest pain MEDICATIONS: ??? acetaminophen (Tylenol) tablet 1,000 mg ??? gabapentin (Neurontin) capsule 300 mg ??? HYDROmorphone (Dilaudid) tablet 2 mg OR HYDROmorphone (Dilaudid) tablet 4 mg OR HYDROmorphone (Dilaudid) tablet 6 mg ??? busPIRone (Buspar) tablet 5 mg ??? ipratropium-albuteroL (Duoneb) 0.5 mg-3 mg(2.5 mg base)/3 mL nebulizer solution 3 mL ??? sodium chloride 0.9 % (flush) (BD PosiFlush Normal Saline 0.9) flush 5 mL ??? sodium chloride 0.9 % (flush) (BD PosiFlush Normal Saline 0.9) flush 5-20 mL ??? lidocaine (Xylocaine) 1% (10 mg/mL) injection 3 mg ??? bisacodyl EC (Dulcolax) tablet 10 mg ??? bisacodyL (Dulcolax) suppository 10 mg ??? polyethylene glycoL (Miralax) packet 17 g ??? senna-docusate (Pericolace) 8.6-50 mg per tablet 2 tablet ??? ondansetron (pf) (Zofran) (2 mg/mL) injection 4 mg ??? aspirin EC tablet 81 mg ??? metoprolol tartrate (Lopressor) tablet 25 mg ??? simvastatin (Zocor) tablet 20 mg ??? sirolimus (Rapamune) tablet 2 mg ??? lidocaine (Lidoderm) 5% patch 3 patch AND lidocaine (Lidoderm) topical patch REMOVAL ??? budesonide-formoteroL (Symbicort) 80-4.5 mcg/actuation inhaler 2 Inhalation ??? predniSONE (Deltasone) tablet 10 mg ??? furosemide (Lasix) tablet 40 mg ??? DULoxetine DR (Cymbalta) capsule 60 mg ??? traZODone (Desyrel) tablet 50 mg ??? BUpivacaine (pf) (Marcaine) (2.5 mg/mL) 0.25% injection ??? ketorolac (Toradol) (30 mg/mL) injection ??? cloNIDine (pf) (Duraclon) (100 mcg/mL) Epidural injection OBJECTIVE: Temp: [36.4 ??C (97.5 ??F)-37 ??C (98.6 ??F)] Resp: [12-20] BP: (112-132)/(71-77) Intake/Output Summary (Last 24 hours) at 08/08/2021 0644 Last data filed at 08/08/2021 0445 Gross per 24 hour Intake 780 ml Output 1600 ml Net -820 ml There is no height or weight on file to calculate BMI. PE: General: NAD, awake/alert CV: RRR assessed peripherally Resp: Breathing comfortably on 4L NC (baseline 1-3L NC at home) RLE: Dressing c/d/i. Motor intact to EHL, FHL, TA. Sensation intact in foot/calf/thigh. Brisk capillary refill distally. Lab Results Component Value Date NA 137 08/07/2021 K 4.1 08/07/2021 CL 100 08/07/2021 CO2 24 08/07/2021 BUN 12 08/07/2021 CREATININE 0.56 (L) 08/07/2021 GLUCOSE 136 08/07/2021 CALCIUM 7.8 (L) 08/07/2021 Lab Results Component Value Date WBC 8.8 08/07/2021 HGB 10.6 (L) 08/07/2021 HCT 33.5 (L) 08/07/2021 MCV 106.0 (H) 08/07/2021 PLATELET 199 08/07/2021 Lab Results Component Value Date INR 0.9 08/06/2021 Imaging: AP Pelvis The right hip is reduced. There is no evidence of intra-op fracture. ASSESSMENT / PLAN: Paradise Abel is a 60 y.o. female 2 Days Post-Op s/p right JACKSON after FNFx, progressing well with stable vitals. DC home once medically stable. We will work on O2, if breathing isbetter controlled and sating well >88 on 1-3 L OK to DC, if requiring more, we will obtain a chest XR to look for signs of atelectasis vs fluid post surgery. Cont to work with PT/OT. Likely DC today vs tomorrow. Activity: WBAT RLE, standard hip precautions, abduction pillow while sleeping, otherwise not required DVT prophylaxis: lovenox 40 mg SQ daily x 4 weeks Closure: Resorbable sutures Dressing: mepilex x 7 days Antibiotics: periop ancef Ngozi Rinaldi MD 08/08/2021 Future Appointments Date Time Provider Department Center 09/04/2021 11:30 AM [facility] DX ROOM 2 Xray [facility] Rad 09/04/2021 1:00 PM Bre Ramirez PA [facility] Monika Almazan RN - 08/08/2021 4:59 AM EDT Pt desat to between 62-71 with any kind of activity, while on 6L NC. Pt ambulated to BR and repositioned in bed and O2 sats steady at between 60s-70s, with the highest being 82, nebulizer treatment offered and administered with good effects, Covering provider Jose Monaahn notified requesting RT c/s for further eval, still awaiting response. Monika Almazan RN - 08/08/2021 1:55 AM EDT OUTCOME EVALUATION NOTE: ?? OUTCOME SUMMARY: ?? Patient A&Ox4, VSS, O2 sats maintained on 3L NC baseline, desat to high 70-mid 80s when up to BRrequiring increase supplemental O2.. POD2 R JACKSON with mepilex dressing CDI. Neurochecks remains unchanged, +CSMTs. Endorse pain to surgical area, pain managed with scheduled and PRN pain medication. Pt have really low score on Ativan Assessment scale to monitor for withdrawal. Voiding adequately, up toBR with SBA and FWW. Care clustered to help promote sleep. All safety measures in place, will continue to monitor and help patient reach d/c goals. ?? PLAN MOVING FORWARD: ?? Pain control Neurochecks Ativan Assessment Mobilize D/c planning ?? INDIVIDUALIZED FALL PREVENTION: Patient is currently a high risk to Fall. Patient educated on bed/chair alarm, demonstrates proper use of call magdaleno and verbalizes understanding of fall preventions implemented. Patient-specific fall risk factors per assessment: [current deficits]: Recent surgery, impaired mobility, Pain, Medications, Hospital Environment. ?? Assistance [level of assistance required for transfers and ambulation]: Bedrest ?? Supervision [direct monitoring required during toileting and ADLs]: Hands on with ADL's ?? Surveillance [continuous indirect monitoring]: Bed alarm, Masimo, Purposeful Rounding, Nurse Knowledge Exchange ?? Patient-specific fall prevention interventions for sensory deficits provided, if applicable: n/a ? CPG GOAL OUTCOME EVALUATION: Arabella Gutierrez RN - 08/07/2021 5:35 PM EDT OUTCOME EVALUATION NOTE: OUTCOME SUMMARY: Pt A&O x 4. Pt requiring increases oxygen at start of shift. Dyspnea and O2 sats improved after duoneb treatment. Continuing to wean oxygen. Whit Mccloud. Pt up with PT/OT, SBA with FWW. Ice to incision PRN. Patient progressing towards d/c goals appropriately at this time. Patient's pain adequately controlled with scheduled and PRN medications, see MAR for medications given. Will continue to monitor and help patient reach d/c goals. PLAN MOVING FORWARD: Pain control Mobilize Weaning oxygen D/C planning INDIVIDUALIZED FALL PREVENTION: Patient is currently a high risk to Fall. Patient educated on bed/chair alarm, demonstrates proper use of call magdaleno and verbalizes understanding of fall preventions implemented. Patient-specific fall risk factors per assessment: [current deficits]: Pain, Medications, Hospital Environment, Impaired Mobility, Recent Surgery Assistance [level of assistance required for transfers and ambulation]: SBA with FWW Supervision [direct monitoring required during toileting and ADLs]: Minimal assist with ADL's Surveillance [continuous indirect monitoring]: Masimo, Purposeful Rounding, Nurse Knowledge Exchangeat Bedside, Bed Alarm Set Patrica Galvan, PT - 08/07/2021 2:53 PM Vibha: CHRISSY REC: home with home PT and PRN Assist/supervision Physical Therapy Evaluation Patient profile: Paradise Abel is a 60 y.o. female admitted on 08/06/2021 s/p ground fall d/t tripping over one of her moving boxes. Imaging obtained demonstrating a R femoral neck fx. She is now POD#1 s/p R JACKSON posterior approach performed by Dr. Peterson on day of admission. Patient with the following active problems: Past Medical History: Diagnosis Date ??? Angiomyolipoma of left kidney ??? Carpal tunnel syndrome ??? Clear cell carcinoma of kidney, right ??? HTN (hypertension) ??? Hyperlipidemia ??? Lymphangioleiomyomatosis Past Surgical History: Procedure Laterality Date ??? KIDNEY REMOVAL Right ??? PRO TOTAL HIP ARTHROPLASTY Right 08/06/2021 TOTAL HIP ARTHROPLASTY - POSTERIOR (WRVU 20.72) performed by Dusty Peterson MD at [facility] MAIN OR ??? PRO UPPER GI ENDOSCOPY, DIAGNOSTIC N/A 11/19/2018 EGD, UPPER GI ENDOSCOPY performed by Sandor Dasilva MD at [facility] ENDOSCOPY Social History: Patient lives alone in a third floor apartment with her cat. Her recently . She has elevator access and no stairs to perform. On the same level as laundry room. Pt normally independent and does not use an assistive device but does own a cane and FWW. Normally on 4LNC but increased PRN for activity. Has home concentrator and portable. Reports that neighbors have offered, and can assist with, IADLs. Precautions/Special Considerations: Full code, WBAT RLE, standard hip precautions (verified with ortho [employer] SUPER[employer]OR due to posterior approach), abduction pillow in supine. Sherman catheter, fall risk, supplemental O2 via NC Mobility and Positioning Recommendations: ?? Pt. to utilize FWW with SBA for ambulation and transfers with nursing. ?? Please encourage up to chair for meal times as able. ?? Pt encouraged to ambulate frequently with staff, getting into the bathroom for toileting and walking out in the gasca >/= 3 times daily as able. Subjective: ???It feels good to sit up, I;ve been on my back for 3 days Objective: Pt seen for initial evaluation today. Pain: Number Location At rest 12/27 R hip, R thigh With activity 10 Vital Signs: At Rest With Activity SpO2 (4-5LNC) 91% on4LNC 80-83% on 4LNC, bumped to 5LNC. desat to 80% on 5LNC. Recovered after 2-4 mins rest BP (MAP) 129/77mmHg supine 130/82mmHg after transfer to chair HR 95bpm 107bpm Mental Status: alert, oriented to person, place, and time, slightly tremulous Vision: WFLS Skin: WFLs, dressing to hip CDI Musculoskeletal: ROM: WFLS with RLE hip AROM < R Strength: WFLS with RLE < LLE but able to perform LAQ adequately Sensation: intact, no N/T reported Bed Mobility: Supine to Sit: supervised, leg sharepoint admin to RLE, toward R side EOB. Increased time/effort, HOB elevated, min use of GB Sit to Supine: N/A - pt left OOB to chair post PT Transfers: Sit to Stand: CGA progressing to supervised with FWW, cues for hand placement pushing up from surface, decreased carryover between stands. Stood x3 from EOB, x2 from recliner Stand to Sit: cues for hand placement, supervised Bed to Chair: CGA with FWW, stand step Other: N/A Gait: Distance: 15 feet in room, around bed, back to chair Device Used: FWW Level of Assist: CGA progressing to close SBA Gait Comments: decreased minh, short stride length, x1 seated rest break at EOB due to spO2 drop and fatigue/SOB Stairs: N/A Balance: Sitting Static: good Sitting Dynamic: good Standing Static: fair Standing Dynamic / Gait: Fair with AD, hx of fall(s) Exercises: X10 hamstring sets, quadriceps sets, gluteal sets, adductor sets, long arc quad, ankle pumps, heel slides - handout provided X10 IS - heavy cuing for technique Self Care: See OT note for details Education: patient educated on role of therapy, use of walker, WBAT, standard hip precautions, leg sharepoint admin, therex, ongoing mobility, and DC planning, with good understanding/demonstration. Patient status, treatment, and mobility recommendations discussed with nursing. Assessment: Paradise Hopkins Abel was seen today for physical therapy evaluation. Pt presented with physical impairments of pain, ROM, strength, aerobic capacity, hemodynamic stability, functional endurance, and activity tolerance, which are currently contributing to functional limitations. Pt very pleasant and motivated to participate in therapy evaluation. Pt able mobilize fairly well, needing only SBA-CGA with use of walker. Pt with significant pain throughout activity, but overall appearing tolerable. Pt primarily limited by desaturation during mobility, down to 80% with good pleth/read. O2 increased to 5-6LNC, with patient still notable for desat, requiring significant rest period and cues for PLB to recover >88%. Unable to progress mobility further due to unstable VS. Currently, pt presents below her functional baseline ,therefore would benefit from ongoing skilled PT. Despite this, anticipate she will progress well and will be able to return home with assist/supports and home PT, when medically ready. Pt will benefit from skilled therapy services throughout hospitalization to promote safe ty, independence, and provide developmental support/caregiver education. Discharge Recommendations: Based on the current findings, Anticipated Discharge Disposition (PT): home with home health, home with daily check in (assist from neighbors) when medically ready for hospital discharge. Discharge recommendation is based on the patient's current physical impairments, prior functional status, potential to return to prior level of function, patient motivation, reported home support, potential for functional gains, current level of endurance, reported home environment and anticipated trajectory of progress and may change based on patient progress during this hospitalization. Consult Recommendations: Social work consult Equipment Needs: Anticipated Equipment Needs at Discharge (PT): None (has all DME) Transportation Needs: Car Cleared Physical Therapy? No (recommend 1-3 more PT sessions) Goals: To be achieved by 08/16/21: 1. Pt. to demonstrate knowledge of safety limitations and precautions 2. Pt. to demonstrate understanding of appropriate exercises. 3. Pt. to perform bed mobility from flat with modified independence using leg sharepoint admin as needed 4. Pt. to perform all transfers with modified independence using 5. Pt. to ambulate 150 feet with supervision and least restrictive assistive device Plan: Therapy Frequency (PT): 2-4 times/wk for therapy including balance training, bed mobility training, gait training, home exercise program, patient/family education, stair training and transfer training. Patient/family understand and agree with plan as stated above. 2017 PT Evaluation Code Rationale: ?? Diagnosis & Pertinent Co-Morbidities, personal factors, and present illness affecting Plan ofCare: (see above); Additional personal factors or co- morbidities that impact plan: ?? Total # of Factors: (lives alone, ETOH) 0 1-2 3+ x ?? Examination of body system impairments, functional limitations and behaviors, and/or participation restrictions. Addressing 1-2 elements Addressing 3 + elements Addressing 4 + elements x ?? Clinical presentation: See assessment above. (spO2 desat) Stable/Uncomplicated Evolving/Fluctuating Symptoms Unstable/Unpredictable x ?? Clinical decision making of moderate complexity based on pt's functional performance as outlined in this evaluation. Time IN / OUT: 4171-3503 Total Minutes, Physical Therapy: 32 Billing Code: Mod Nat, TESx1 Thank you for this consult. Patrica Galvan, PT Pager: [phone] Physical Therapy Inpatient Rehabilitation Department Ngozi Rinaldi MD - 08/07/2021 6:45 AM EDT ORTHOPAEDIC SURGERY INPATIENT PROGRESS NOTE Patient Name: Paradise Abel Age: 60 y.o. Surgery/Issue: s/p GLF 08/05 p/w R FNFx.Right Total Hip Arthroplasty Attending: Dr. Peterson Date of surgery: 08/06/2021 SUBJECTIVE / INTERVAL HISTORY: NAEON. Pain moderately well controlled. Has not ambulated yet Denies CP/SOB. N/V. FOCUSED REVIEW OF SYSTEMS: as above. Active Hospital Problems Diagnosis ??? Right femoral neck fracture 08/05/21 Resolved Hospital Problems No resolved problems to display. Active Non-Hospital Problems Diagnosis ??? Severe protein-calorie malnutrition ??? Hypoxia ??? Acute blood loss anemia ??? Chronic respiratory failure with hypoxia ??? Hypotension ??? Chest pain MEDICATIONS: ??? sodium chloride 0.9 % (flush) (BD PosiFlush Normal Saline 0.9) flush 5 mL ??? sodium chloride 0.9 % (flush) (BD PosiFlush Normal Saline 0.9) flush 5-20 mL ??? lidocaine (Xylocaine) 1% (10 mg/mL) injection 3 mg ??? bisacodyl EC (Dulcolax) tablet 10 mg ??? bisacodyL (Dulcolax) suppository 10 mg ??? polyethylene glycoL (Miralax) packet 17 g ??? senna-docusate (Pericolace) 8.6-50 mg per tablet 2 tablet ??? ondansetron (pf) (Zofran) (2 mg/mL) injection 4 mg ??? sodium chloride 0.9% infusion ??? oxyCODONE (Roxicodone) tablet 5 mg OR oxyCODONE (Roxicodone) tablet 10 mg OR oxyCODONE (Roxicodone) tablet 15 mg ??? acetaminophen (Tylenol) tablet 1,000 mg ??? aspirin EC tablet 81 mg ??? metoprolol tartrate (Lopressor) tablet 25 mg ??? simvastatin (Zocor) tablet 20 mg ??? sirolimus (Rapamune) tablet 2 mg ??? HYDROmorphone (Dilaudid) (1 mg/mL) injection syringe 0.2 mg OR HYDROmorphone (Dilaudid) (1 mg/mL) injection syringe 0.4 mg OR [DISCONTINUED] HYDROmorphone (Dilaudid) (1 mg/mL) injection syringe 0.6 mg ??? lidocaine (Lidoderm) 5% patch 3 patch AND lidocaine (Lidoderm) topical patch REMOVAL ??? budesonide-formoteroL (Symbicort) 80-4.5 mcg/actuation inhaler 2 Inhalation ??? ipratropium-albuteroL (Duoneb) 0.5 mg-3 mg(2.5 mg base)/3 mL nebulizer solution 3 mL ??? predniSONE (Deltasone) tablet 10 mg ??? furosemide (Lasix) tablet 40 mg ??? DULoxetine DR (Cymbalta) capsule 60 mg ??? traZODone (Desyrel) tablet 50 mg ??? busPIRone (Buspar) tablet 5 mg ??? BUpivacaine (pf) (Marcaine) (2.5 mg/mL) 0.25% injection ??? ketorolac (Toradol) (30 mg/mL) injection ??? cloNIDine (pf) (Duraclon) (100 mcg/mL) Epidural injection ??? sodium chloride 0.9% 1,000 mL (08/06/212106) OBJECTIVE: Temp: [36.6 ??C (97.9 ??F)-37.7 ??C (99.9 ??F)] Heart Rate: [88-94] Resp: [14-23] BP: (108-145)/(64-97) Intake/Output Summary (Last 24 hours) at 08/07/2021 0645 Last data filed at 08/07/2021 0519 Gross per 24 hour Intake 590 ml Output 900 ml Net -310 ml There is no height or weight on file to calculate BMI. PE: General: NAD, awake/alert CV: RRR assessed peripherally Resp: Breathing comfortably on 2L NC (baseline 1-3L NC at home) RLE: Dressing c/d/i. Motor intact to EHL, FHL, TA. Sensation intact in foot/calf/thigh. Brisk capillary refill distally. Lab Results Component Value Date NA 137 08/07/2021 K 4.1 08/07/2021 CL 100 08/07/2021 CO2 24 08/07/2021 BUN 12 08/07/2021 CREATININE 0.56 (L) 08/07/2021 GLUCOSE 136 08/07/2021 CALCIUM 7.8 (L) 08/07/2021 Lab Results Component Value Date WBC 8.8 08/07/2021 HGB 10.6 (L) 08/07/2021 HCT 33.5 (L) 08/07/2021 MCV 106.0 (H) 08/07/2021 PLATELET 199 08/07/2021 Lab Results Component Value Date INR 0.9 08/06/2021 Imaging: AP Pelvis The right hip is reduced. There is no evidence of intra-op fracture. ASSESSMENT / PLAN: Paradise Abel is a 60 y.o. female 1 Day Post-Op s/p right JACKSON after FNFx, progressing well with stable vitals. Discharge pending evaluation by PT/OT on POD1. Activity: WBAT RLE, standard hip precautions, abduction pillow while sleeping, otherwise not required DVT prophylaxis: lovenox 40 mg SQ daily x 4 weeks Closure: Resorbable sutures Dressing: mepilex x 7 days Antibiotics: periop ancef Ngozi Rinaldi MD 08/07/2021 No future appointments. Monika Almazan RN - 08/07/2021 3:21 AM EDT OUTCOME EVALUATION NOTE: OUTCOME SUMMARY: Patient A&Ox4, VSS, O2 sats maintained on 3L NC baseline. POD1 R JACKSON with mepilex dressing CDI. Hip abduction pillow remains in place all shift. Neurochecks remains unchanged. Endorse pain to surgical area, pain managed with scheduled and PRN pain medication. Pt scoring between 2-3 on Ativan Assessment scale to monitor for withdrawal. Sherman catheter in place, draining CYU. Care clustered to help promote sleep. All safety measures in place, will continue to monitor and help patient reach d/c goals. PLAN MOVING FORWARD: Pain control Neurochecks Ativan Assessment Mobilize D/c planning INDIVIDUALIZED FALL PREVENTION: Patient is currently a high risk to Fall. Patient educated on bed/chair alarm, demonstrates proper use of call magdaleno and verbalizes understanding of fall preventions implemented. Patient-specific fall risk factors per assessment: [current deficits]: Recent surgery, impaired mobility, Pain, Medications, Hospital Environment. Assistance [level of assistance required for transfers and ambulation]: Bedrest Supervision [direct monitoring required during toileting and ADLs]: Hands on with ADL's Surveillance [continuous indirect monitoring]: Bed alarm, Masimo, Purposeful Rounding, Nurse Knowledge Exchange Patient-specific fall prevention interventions for sensory deficits provided, if applicable: n/a CPG GOAL OUTCOME EVALUATION: Vicky Thapa MD - 08/06/2021 2:11 PM EDT ORTHOPAEDIC SURGERY INPATIENT PROGRESS NOTE Patient Name: Paradise Abel Age: 60 y.o. Surgery/Issue: s/p GLF 08/05 p/w R FNFx.Right Total Hip Arthroplasty Attending: Dr. Peterson Date of surgery: 08/06/2021 SUBJECTIVE / INTERVAL HISTORY: Patient in pain on right hip. Has not got pain medication yet. Nurse coming to bedside now to give pain meds. Denies CP, SOB, nausea, vomiting, numbness/weakness. Scoring 1-2 on CIWA protocol. FOCUSED REVIEW OF SYSTEMS: as above. Active Hospital Problems Diagnosis ??? Right femoral neck fracture 08/05/21 Resolved Hospital Problems No resolved problems to display. Active Non-Hospital Problems Diagnosis ??? Severe protein-calorie malnutrition ??? Hypoxia ??? Acute blood loss anemia ??? Chronic respiratory failure with hypoxia ??? Hypotension ??? Chest pain MEDICATIONS: ??? sodium chloride 0.9 % (flush) (BD PosiFlush Normal Saline 0.9) flush 5 mL ??? sodium chloride 0.9 % (flush) (BD PosiFlush Normal Saline 0.9) flush 5-20 mL ??? lidocaine (Xylocaine) 1% (10 mg/mL) injection 3 mg ??? bisacodyl EC (Dulcolax) tablet 10 mg ??? bisacodyL (Dulcolax) suppository 10 mg ??? polyethylene glycoL (Miralax) packet 17 g ??? senna-docusate (Pericolace) 8.6-50 mg per tablet 2 tablet ??? ondansetron (pf) (Zofran) (2 mg/mL) injection 4 mg ??? sodium chloride 0.9% infusion ??? oxyCODONE (Roxicodone) tablet 5 mg OR oxyCODONE (Roxicodone) tablet 10 mg OR oxyCODONE (Roxicodone) tablet 15 mg ??? acetaminophen (Tylenol) tablet 1,000 mg ??? [START ON 08/07/2021] aspirin EC tablet 81 mg ??? [START ON 08/07/2021] metoprolol tartrate (Lopressor) tablet 25 mg ??? simvastatin (Zocor) tablet 20 mg ??? [START ON 08/07/2021] sirolimus (Rapamune) tablet 2 mg ??? HYDROmorphone (Dilaudid) (1 mg/mL) injection syringe 0.2 mg OR HYDROmorphone (Dilaudid) (1 mg/mL) injection syringe 0.4 mg OR [DISCONTINUED] HYDROmorphone (Dilaudid) (1 mg/mL) injection syringe 0.6 mg ??? lidocaine (Lidoderm) 5% patch 3 patch AND lidocaine (Lidoderm) topical patch REMOVAL ??? budesonide-formoteroL (Symbicort) 80-4.5 mcg/actuation inhaler 2 Inhalation ??? ipratropium-albuteroL (Duoneb) 0.5 mg-3 mg(2.5 mg base)/3 mL nebulizer solution 3 mL ??? predniSONE (Deltasone) tablet 10 mg ??? [START ON 08/07/2021] furosemide (Lasix) tablet 40 mg ??? [START ON 08/07/2021] DULoxetine DR (Cymbalta) capsule 60 mg ??? traZODone (Desyrel) tablet 50 mg ??? [START ON 08/07/2021] busPIRone (Buspar) tablet 5 mg ??? BUpivacaine (pf) (Marcaine) (2.5 mg/mL) 0.25% injection ??? ketorolac (Toradol) (30 mg/mL) injection ??? cloNIDine (pf) (Duraclon) (100 mcg/mL) Epidural injection ??? sodium chloride 0.9% 100 mL/hr at 08/06/21 1337 OBJECTIVE: Temp: [36.6 ??C (97.9 ??F)-37.7 ??C (99.9 ??F)] Heart Rate: [88-97] Resp: [14-23] BP: (112-137)/(71-97) Intake/Output Summary (Last 24 hours) at 08/06/2021 1411 Last data filed at 08/06/2021 1200 Gross per 24 hour Intake 470 ml Output 575 ml Net -105 ml There is no height or weight on file to calculate BMI. PE: General: NAD, awake/alert CV: RRR assessed peripherally Resp: Breathing comfortably on 2L NC (baseline 1-3L NC at home) RLE: Dressing c/d/i. Motor intact to EHL, FHL, TA. Sensation intact in foot/calf/thigh. Brisk capillary refill distally. Lab Results Component Value Date NA 137 08/06/2021 K 3.4 (L) 08/06/2021 CL 97 (L) 08/06/2021 CO2 28 08/06/2021 BUN 21 (H) 08/06/2021 CREATININE 0.58 (L) 08/06/2021 GLUCOSE 90 08/06/2021 CALCIUM 8.5 08/06/2021 Lab Results Component Value Date WBC 8.3 08/06/2021 HGB 12.4 08/06/2021 HCT 37.7 08/06/2021 MCV 103.0 (H) 08/06/2021 PLATELET 187 08/06/2021 Lab Results Component Value Date INR 0.9 08/06/2021 Imaging: AP Pelvis The right hip is reduced. There is no evidence of intra-op fracture. ASSESSMENT / PLAN: Paradise Abel is a 60 y.o. female Day of Surgery s/p right JACKSON after FNFx, progressing well with stable vitals. Discharge pending evaluation by PT/OT on POD1. Activity: WBAT RLE, standard hip precautions, abduction pillow while sleeping, otherwise not required DVT prophylaxis: lovenox 40 mg SQ daily x 4 weeks Closure: Resorbable sutures Dressing: mepilex x 7 days Antibiotics: periop ancef Vicky Thapa MD 08/06/2021 No future appointments. Monica Sainz RN - 08/06/2021 2:10 PM EDT OUTCOME EVALUATION NOTE: ?? OUTCOME SUMMARY: ?? AOx4, VSS on 3lit (patient baseline). Status post op Right JACKSON, right hip mepilex c/d/i, neurovascular WDL, pain controlled with prn/scheduled meds-See JUL. WBAT to RLE, abductor pillow while in bed. Intermittent nausea, prn Zofran effective. Patient has sherman cath, c/d/i with yellow urine. Patient onalcohol withdrawal scale, scoring low. For PT/OT consult. ?? PLAN MOVING FORWARD: ?? Pain control NPO for OR D/c planning ?? INDIVIDUALIZED FALL PREVENTION: Patient is currently a high risk to Fall. Patient educated on bed/chair alarm, demonstrates proper use of call magdaleno and verbalizes understanding of fall preventions implemented. Patient-specific fall risk factors per assessment: [current deficits]: Impaired mobility, Pain, Medications, Hospital Environment. ?? Assistance [level of assistance required for transfers and ambulation]: Bedrest ?? Supervision [direct monitoring required during toileting and ADLs]: Hands on with ADL's ?? Surveillance [continuous indirect monitoring]: Bed alarm, Masimo, Purposeful Rounding, Nurse Knowledge Exchange ?? Patient-specific fall prevention interventions for sensory deficits provided, if applicable: n/a ? CPG GOAL OUTCOME EVALUATION: Eryn Muniz RN - 08/06/2021 12:31 PM EDT Pt arrived from the OR in a bed with service and anesthesia in attendance. Monitors attached. Alarmson and audible. + doppler pulses to BLE. Post-op xrays completed. Report given to [facility]. Makenna Chavira PT - 08/06/2021 11:18 AM EDT Physical Therapy Contact Note 08/06/21 0091 Evaluation & Treatment Document Type contact Total Minutes, Physical Therapy 0 Comment, Session Not Performed Consult received, chart reviewed. Pt sustained R FNF 2/2 mech fall, plan for OR for JACKSON, PT will follow up postoperatively as appropriate/able. Makenna Chavira, PT Pager: [phone] Physical Therapy Inpatient Rehabilitation Department Dusty Peterson MD - 08/06/2021 4:10 AM EDT ORTHOPAEDIC SURGERY INPATIENT PROGRESS NOTE Patient Name: Paradise Abel Age: 60 y.o. Surgery/Issue: RIGHT femoral neck fracture Attending: MD Sherif Date of surgery: TBD SUBJECTIVE / INTERVAL HISTORY: NAEON. Seen by medicine who recommended CIWA scale given history of ETOH withdrawal 1 year ago. Reiterated importance to patient regarding accuracy of ETOH consumption. She has consistently told medicine teamand myself that she drinks far less than she did a year ago when her was passing. Drinks every other day 2-3 drinks/ day. Denies any recent withdrawals. Denies CP, SOB, fevers, chills overnight. On 3-4L NC which is her baseline, states usually 3L at home but can fluctuate to 4L. Medicine team state patient moderate- to - high risk given underlying pulmonary disease but no further workup indicated at this time. Sirolimus and prednisone she is on do impose risks for surgical wound healing. FOCUSED REVIEW OF SYSTEMS: as above. Active Hospital Problems Diagnosis ??? Right femoral neck fracture 08/05/21 Resolved Hospital Problems No resolved problems to display. Active Non-Hospital Problems Diagnosis ??? Severe protein-calorie malnutrition ??? Hypoxia ??? Acute blood loss anemia ??? Chronic respiratory failure with hypoxia ??? Hypotension ??? Chest pain MEDICATIONS: ??? sodium chloride 0.9 % (flush) (BD PosiFlush Normal Saline 0.9) flush 5 mL ??? sodium chloride 0.9 % (flush) (BD PosiFlush Normal Saline 0.9) flush 5-20 mL ??? lidocaine (Xylocaine) 1% (10 mg/mL) injection 3 mg ??? bisacodyl EC (Dulcolax) tablet 10 mg ??? bisacodyL (Dulcolax) suppository 10 mg ??? polyethylene glycoL (Miralax) packet 17 g ??? senna-docusate (Pericolace) 8.6-50 mg per tablet 2 tablet ??? ondansetron (pf) (Zofran) (2 mg/mL) injection 4 mg ??? sodium chloride 0.9% infusion ??? oxyCODONE (Roxicodone) tablet 5 mg OR oxyCODONE (Roxicodone) tablet 10 mg OR oxyCODONE (Roxicodone) tablet 15 mg ??? acetaminophen (Tylenol) tablet 1,000 mg ??? [START ON 08/07/2021] aspirin EC tablet 81 mg ??? [START ON 08/07/2021] metoprolol tartrate (Lopressor) tablet 25 mg ??? simvastatin (Zocor) tablet 20 mg ??? [START ON 08/07/2021] sirolimus (Rapamune) tablet 2 mg ??? HYDROmorphone (Dilaudid) (1 mg/mL) injection syringe 0.2 mg OR HYDROmorphone (Dilaudid) (1 mg/mL) injection syringe 0.4 mg OR [DISCONTINUED] HYDROmorphone (Dilaudid) (1 mg/mL) injection syringe 0.6 mg ??? lidocaine (Lidoderm) 5% patch 3 patch AND lidocaine (Lidoderm) topical patch REMOVAL ??? budesonide-formoteroL (Symbicort) 80-4.5 mcg/actuation inhaler 2 Inhalation ??? ipratropium-albuteroL (Duoneb) 0.5 mg-3 mg(2.5 mg base)/3 mL nebulizer solution 3 mL ??? predniSONE (Deltasone) tablet 10 mg ??? [START ON 08/07/2021] furosemide (Lasix) tablet 40 mg ??? [START ON 08/07/2021] DULoxetine DR (Cymbalta) capsule 60 mg ??? traZODone (Desyrel) tablet 50 mg ??? [START ON 08/07/2021] busPIRone (Buspar) tablet 5 mg ??? sodium chloride 0.9% 1,000 mL (08/06/21 0156) OBJECTIVE: Temp: [36.8 ??C (98.2 ??F)-36.9 ??C (98.4 ??F)] Heart Rate: [97] Resp: [16] BP: (135-137)/(71-73) Intake/Output Summary (Last 24 hours) at 08/06/2021 0410 Last data filed at 08/06/2021 0319 Gross per 24 hour Intake -- Output 125 ml Net -125 ml BMI: There is no height or weight on file to calculate BMI. PE: General: awake/alert, responds to questions CV: RRR assessed peripherally Resp: Breathing comfortably on 4L NC RLE: Shortened, externally rotated Sensory intact to light touch in lat fem cut/fem/sural/saph/SP/DP/T distributions Motor intact to FHL/EHL/TA Brisk capillary refill distally, foot warm/well-perfused Lab Results Component Value Date NA 137 07/01/2020 K 3.0 (CRIT) 07/01/2020 CL 96 (L) 07/01/2020 CO2 34 (H) 07/01/2020 BUN 16 07/01/2020 CREATININE 0.46 (L) 07/01/2020 GLUCOSE 84 07/01/2020 CALCIUM 9.3 07/01/2020 Lab Results Component Value Date WBC 9.8 (H) 07/01/2020 HGB 12.4 07/01/2020 HCT 37.7 07/01/2020 MCV 101.1 (H) 07/01/2020 PLATELET 300 07/01/2020 Lab Results Component Value Date INR 0.9 06/28/2020 IMAGING: R Femur: Moderately displaced femoral neck fracture with retroversion of the head. ASSESSMENT / PLAN: Paradise Abel is a 60 y.o. female who presents s/p GLF with displaced FNFx pended for OR today. No acute events overnight. On stable 3-4 LNC satting mid-90s which is her baseline. Feels in usual state of health. Medicine has been consulted and recommended CIWA scale but no other acute interventions and no otheroptimization measures for OR. Discussed with patient she is at higher risk given her underlying pulmonary disease. Reviewed again the consent consisting of hemiarthroplasty vs total hip arthroplasty right hip. Patient agreed and signed consent. - Activity: NWB RLE - Antibiotics: periop ancef - DVT px: ASA 81mg BID - Pain control: tylenol, ibuprofen, oxycodone PRN, IV dilaudid PRN - Diet: NPO Anne Marie Costello MD 08/06/2021 I saw and evaluated the patient on the date of the primary author's note. I have reviewed and agree with the findings and the plan of care as outlined in their note, with thefollowing additions or alterations: 60 yo with displaced R femoral neck fracture. We discussed operative treatment and our suggestion for arthroplasty, as well as the rationale. Based on her her age and activity level, I would lean towards JACKSON. We discussed risks and benefits in relation to hemiarthroplasty, including higher risk of dislocation. SHe wishes to proceed with JACKSON. Dusty Peterson MD, MS Orthopaedic Surgery Attending No future appointments. documented in this encounter H&P Notes Roseline Harman MD - 08/09/2021 9:05 AM EDT Medicine H&P HPI: Per initial H&P from medicine on 08/06/21 - Dr. Keisha Hopkins Abel is a pleasant 60 y.o. 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 She was in her usual state of health until this yesterday (08/05) morning when she had a mechanical fall. She is moving into a new apartment in [facility] as she previously lived in a house with her who 2 months ago. She was walking in the apartment and tripped on a box falling onto her right hip. She immediately was in pain and dragged herself up to the chair. Her neighbor rushed over and they called EMS who took her to [facility]. She was found to have a femoral neck fracture and [facility] was contacted for transfer. ?? She was most recently hospitalized here in June 2020 for acute hypoxic respiratory failure requiring ICU admission. At that time, decompensation thought to be acute on chronic in setting of end stage FOLEY 2/2 medication non- compliance due to financial reasons. She was placed on BiPAP and weaned to nasal cannula. She was placed back on sirolimus, started on a prolonged prednisone taper, and discharged with close pulmonology follow up. Last visit was a month ago and at that time she was started on prednisone (unclear dose) as her breathing was mildly worse. She takes albuterol (4-5 times per day) and BREZTRI (budesonide/glycopyrrolate/formoterol) two puffs bid. Notably, last admission she reported also drinking 1 bottle of wine daily and required phenobarbitol withdrawal protocol during hospitalization. Currently drinking every other day, a couple of glasses of wine. Last drink was 08/04. On arrival to [facility], her XANDER was 197. Also, her urine was positive for opiates but she denies any use. ?? At this point in time, she feels to be at her baseline respiratory status. She is able to climb only3-4 steps without stopping, with the dyspnea being the main limiting factor. No chest pain with exertion. Most recent surgery was in her 20s - nephrectomy. ?? Workup at OSH: WBC 17.9, Hb 12.4, PLT 287 Cr 0.6, BUN 30, K 3.4, Na 139, CO2 30.2 LFTs normal U/A negative UDS negative other than + opiates COVID negative. XR R hip revealed right femoral neck fracture. CT lumbar spine showed no fracture. CT head normal. CXR normal. CV workup prior: Non-diagnostic ECG stress in 2019 performed for dyspnea. Since admission: Medicine was initially consulted for preop optimization and she was deemed high risk for surgery butthe benefits outweighed the risks and patient proceeded to surgery. She underwent R JACKSON on 08/06 which was uncomplicated with ~100cc ESBL. Post-op she had slightly increased O2 requirement on 5-6L NC possibly due to atelectasis v edema from mIVF which was stopped a day after. Her O2 requirement fluctuated frequently but was ultimately stable around 3L NC (baseline). In terms of therapy, she received BID symbicort with scheduled + PRN duonebs. Was unable to obtain nebulized glycopyrrolate. She was seen by PT who recommended home with home health. Cleared by orthopedics to be WBAT with plan for 4 weeks of lovenox and also endocrine referral placed for outpatient given concern of fragilityfracture. By HD3 (~72hr) patient began to show increasing evidence of alcohol withdrawal. On prior hospitalization in 06/2020 patient had significant withdrawal sx requiring phenobarb. She scored 8 on CIWA scale with evidence of agitation, delirium, tremors, diaphoresis, hypertension and tachypnea. Decision madeat this point to transfer to Hospital Medicine for continued management. Vitals: Patient Vitals for the past 24 hrs: Temp Heart Rate From SP02 Pulse Resp BP SpO2 O2 Flow Rate (L/min) O2 Device 08/08/21 1137 36.8 ??C (98.2 ??F) 86 bpm -- 18 124/85 93 % 5 L/min NC 08/08/21 1521 36.7 ??C (98.1 ??F) 96 bpm 87 22 121/79 (!) 88 % 5 L/min NC 08/08/21 2000 36.8 ??C (98.3 ??F) (!) 109 bpm (!) 109 20 119/79 95 % 6 L/min NC 08/09/21 0000 36.8 ??C (98.2 ??F) 84 bpm 84 20 106/72 99 % 6 L/min NC 08/09/21 0349 36.8 ??C (98.3 ??F) (!) 109 bpm -- -- (!) 146/95 97 % -- -- 08/09/21 0400 36.8 ??C (98.3 ??F) 95 bpm -- 18 (!) 146/95 96 % 6 L/min NC 08/09/21 0748 36.5 ??C (97.7 ??F) 94 bpm -- 20 (!) 150/96 -- 6 L/min NC 08/09/21 0900 -- -- 92 -- -- 98 % 3 L/min NC Ins/Outs: Intake/Output Summary (Last 24 hours) at 08/09/2021 09 Last data filed at 08/09/2021 0357 Gross per 24 hour Intake 500 ml Output 1650 ml Net -1150 ml Physical Exam: Gen: Thin appearing, laying in bed. Confused, unable to follow commands, resistant towards exam thismorning which is new, speaking non-pertinent full sentences. HEENT: MMM, no JVD CVS: tachycardic, no m/r/g Pulm: distant breath sounds, poor air movement, no wheezes, rhonci or crackles, no use of accessory muscles Abd: NABS, soft, NT, ND, no abnormal masses or pulsations Ext: warm, dry, R hip surgical site bandaged w/ R >L LE edema Labs: Recent Labs 08/09/21 0808/08/21 0921 08/07/21 034 WBC 8.3 9.9* 8.8 HGB 9.0* 9.3* 10.6* HCT 28.7* 29.6* 33.5* PLATELET 232 209 199 Recent Labs 08/09/21 0808/08/21 0921 08/07/21 0342 NA 134* 131* 137 K 3.9 4.5 4.1 CL 99 98 100 CO2 27 25 24 BUN 9 12 12 CREATININE 0.53* 0.67* 0.56* No results for input(s): AST, ALT, ALKPHOS, BILITOT, BILIDIR in the last 168 hours. Recent Labs 08/09/21 0808/08/21 0908/07/2134108/06/21 035 CALCIUM 8.5 8.2* 7.8* 8.5 MAGNESIUM 0.74 -- 0.89 0.60* PHOS 1.6* -- -- 2.8 Recent Labs 08/06/21 0354 INR 0.9 PT 10.2 PTT 26 No results for input(s): CK, TROPONINT in the last 168 hours. No results for input(s): POCGLU in the last 168 hours. Microbiology: Microbiology Results (Last 30 days) Procedure Component Value Units Date/Time COVID-19 PCR [[id number]] Collected: 08/06/21 0300 Lab Status: Final result Specimen: Nasopharyngeal Swab Updated: 08/06/21 0528 SARS-CoV-2 RNA PCR Not Detected Comment: This result should be interpreted in combination with the clinical observations, patient history and epidemiological information. For testing of asymptomatic individuals, assay performance characteristics and clinical utility have not been evaluated. Testing for SARS-CoV-2 (Severe acute respiratory syndrome coronavirus 2, formerly known as 2019 novel coronavirus or 2019-nCoV) to aid in the diagnosis of COVID-19 is performed using the Simplexa COVID-19 Direct Assay by [employer] as authorized by the FDA issued Emergency Use Authorization (EUA). This assay is intended for In-vitro Diagnostic (IVD) use with nasopharyngeal swabs collected from individuals meeting the CDC criteria for testing. The assay is performed based on the instructions for use and additional guidance provided by the FDA. Testing is performed in the Microbiology Laboratory within the Department of Pathology and Laboratory Medicine at [facility], certified under the Clinical Laboratory Improvement Amendments of 1988 (CLIA), 42 U.S.C. section 263a, to perform high complexity tests. Assay performance has been verified according to clinical laboratory regulatory requirements. Test results are provided above. A result of Not Detected indicates that the viral RNA target is not present but does not preclude SARS-CoV-2 infection. False negative results may occur if a specimen is improperly collected, transported or handled; if amplification inhibitors are present; or if inadequate numbers of viral particles are present in the specimen. A result of Detected suggests a current or recent infection and the patient is presumed to be infected. Positive and negative predictive values for this test are highly dependent on disease prevalence. A result of Invalid indicates the inability to conclusively determine the presence or absence of SARS-CoV-2 RNA in the sample which can be due to a variety of factors. Recollection is recommended in the case of an invalid result. CDC COVID-19 criteria for testing on human specimens and clinical management guidance information are available at the CDC Coronavirus Disease 2019 (COVID-19) webpage under Information for Healthcare Professionals (https://www.cdc.gov/coronavirus/2019-ncov/hcp/index.html). Additional information about this and other EUA tests can be found in provider and patient fact sheets at the following FDA website: https://www.fda.gov/medical-devices/hlrencttuwy-wbkppvd-1674-lvihw-49-dwgsxyicl- ans-hnywjghugaunwc-trtywxg-devices/efzty-uftcxkmenzr-lxut SARS-CoV-2 Source METER ATTENDANT Swab Inpatient Medications: Scheduled Meds: ??? thiamine 100 mg Oral Daily ??? folic acid 1,000 mcg Oral Daily ??? multivitamin with minerals 1 tablet Oral Daily ??? calcium carbonate 500 mg Oral BID WC ??? cholecalciferol (Vitamin D3) 1,000 Units Oral Daily ??? ipratropium-albuteroL 3 mL Nebulization Q6H OSMIN ??? enoxaparin 30 mg Subcutaneous Nightly ??? acetaminophen 1,000 mg Oral Q6H OSMIN ??? gabapentin 300 mg Oral TID ??? busPIRone 5 mg Oral BID ??? sodium chloride 0.9 % (flush) 5 mL Intravenous BID ??? polyethylene glycoL 17 g Oral BID ??? senna-docusate 2 tablet Oral BID ??? metoprolol tartrate 25 mg Oral BID ??? simvastatin 20 mg Oral QPM ??? sirolimus 2 mg Oral Daily ??? lidocaine 3 patch Transdermal Q24H And ??? lidocaine 3 patch Transdermal Q24H ??? budesonide-formoteroL 2 Inhalation Inhalation 2 times per day ??? predniSONE 10 mg Oral Daily ??? furosemide 40 mg Oral Daily ??? DULoxetine DR 60 mg Oral Daily Continuous Infusions: PRN Meds: LORazepam OR LORazepam OR LORazepam, HYDROmorphone, sodium chloride 0.9 % (flush), lidocaine, bisacodyl EC, bisacodyL, ondansetron, traZODone, BUpivacaine (pf), ketorolac, cloNIDine Assessment: Paradise Abel is a pleasant 60 y.o. 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 Doing well from post-op / ortho perspective, cleared to go home with home health. Nature of her fracture likely related to chronic prednisone use. Agree with benefit of outpatient endocrine referral, possibly would benefit from DEXA scan / possible bisphosphonate which does not need to be done urgently. Currently showing significant signs of alcohol withdrawal concerning for delirium tremens now in xoc11-31 hour window with significant delirium. Is outside window of significant risk for seizures. Will need to monitor closely for issues with volume status and electrolyte depletion if unable to eat. Will schedule ativan for now with additional based on CIWA and continue providing supportive care. If failing to improve by tomorrow will consider head imaging. Will also consider switching to phenobarb if not improving with ativan in next 12 hours. Her respiratory status is near baseline however frequent fluctuations in O2 requirement possible dueto her withdraw symptoms. Does have CXR ordered by orthopedics which is reasonable to obtain if patient able to cooperative, otherwise is not imperative to obtain unless any new changes. #Delirium tremens #alcohol use -Scheduled 1mg PO or 0.5mg IV ativan (if unable to take PO) -CIWA scale w/ low dose ativan ordered -replete K, Mg, Phos as needed -thiamine / folate / MV -consider BIT team when more able to participate #R femoral neck fracture s/p R JACKSON 08/06/21 -Activity: WBAT RLE, standard hip precautions, abduction pillow while sleeping, otherwise not required -DVT prophylaxis: lovenox 40 mg SQ daily x 4 weeks -Closure: Resorbable sutures -Dressing: mepilex x 7 days Hx of lymphangioleiomyomatosis Chronic dyspnea requiring home O2 (3-4L) -symbicort bid -scheduled duoneb q6h -duonebs q4h prn -we do not have aerosolized glycopyrrolate on formulary -sirolimus is associated with poor wound healing, but at this point should continue as usual - 2mg qd -continue prednisone 10mg qd -CXR ordered from ortho services, will obtain if able to cooperate ?? #Fragility fracture in setting of chronic prednisone use -outpatient endocrine referral placed by orthopedics -Vit D3 1000U qd -calcium carbonate 500mg BID ?? Hx of peripheral edema -continue lasix 40mg qd ?? HTN -continue metoprolol tartrate 25mg po bid ?? HLD -continue simvastatin 20mg po qhs ?? MDD -continue duloxetine 60mg qd -continue trazodone 50mg qhs -continue buspar 5mg qam #Routine DVT - lovenox Code - FULL Floor status Dispo - eventual home with home health Roseline Harman MD Internal Medicine - PGY3 Medicine Consults #[id number] Associated attestation - Ronit Glover MD - 08/09/2021 1:42 PM EDT Attending Attestation Please see Dr. Harman's note for details of the patient history of presentation and data. I have discussed, reviewed and agree with the documented History, Physical findings, Assessment and Plan of care. I have examined the patient myself on 08/09/2021 and personally reviewed all studies. In addition, I certify that I am a [facility] credentialed attending provider with admitting privileges and that the patient meets or has met medical necessity to require an inpatient IPI level of care meeting a minimum of two midnights or is on the [facility] inpatient only procedure list (status C) due to: monitoring of fluid status given an inability to regulate fluid balance and the need for administration or restriction of fluids, acute respiratory compromise and/or hypoxia requiring assessment every 4 hours and the abilityto respond immediately to the patient's need and acute toxic metabolic encephalopathy Additions to the history, physical, assessment and plan include the followin yo F with end-stage FOLEY on chronic Pred and 3-4L02, who presented for RT hip fracture and underwent RT JACKSON 08/07. Continued on Lovenox SC for 4 weeks - cleared for WBAT RLE. Post-operatively initially on higher 02 requirement so medicine team consulted - now on baseline 02.Wean 02 for goal sa02>88%. Today having increased altered mental status (delirious, hallucinating, tremulous, confused) and scoring on CIWA monitoring - concern for alcohol withdrawal. Will continue CIWA monitoring, use PRN Ativan and evaluate need for Phenobarbital. Given non-focal exam, low concern for alternate cause of AMS but will evaluate need for UA and/or head CT. Rest per Dr. Harman's note. Ronit Glover MD 08/09/2021 Anne Marie Costello MD - 08/06/2021 1:58 AM EDT ORTHOPAEDIC SURGERY H&P NOTE ATTENDING: MD Paradise Gorman is a 60 y.o. female who presents to see us in consultation today at the request ofTrung Gorman MD. CHIEF COMPLAINT: RIGHT femoral neck fracture HPI: Paradise Abel is a 60 y.o. female with hx of lymphangioleiomyomatosis (on 3L O2 baseline and s/p R nephrectomy at age 25), HTN, HLD, who presents s/p GLF 1 day ago with right femoral neck fracture. Initially presented to [facility] and transferred to [facility] for management. No other injuries. CT head/c-spine and C/A/P done at [facility] due to ethanol detected on screen and concern for additional injuries.These studies, in addition to CXR and UA were negative. Patient states she lives alone, was moving into a new apartment when she tripped over a box yesterday morning sustaining a right femoral neck fracture. She noted immediate pain to her right hip and wasable to ambulate a very short distance to her kitchen table sat there for a while waiting for pain to subside however when it did not subside after several hours she did call an ambulance and was takento [facility]. She denies any alcohol use that morning however did drink alcohol the night before. She states she drinks alcohol 2-3 nights a week however not daily. In reviewing back in her chart however she does have a history of ETOH use disorder previously requiring a phenobarb protocol for withdrawal symptoms in June of 2020. Denies IV drug use, non-smoker. Not on any blood thinners. Ambulates independently without assistive devices. Denies any premorbid hip pain in the side. Daily medications: simvastatin, lasix, sirolimus (for FOLEY), albuterol (for FOLEY), metoprolol FOCUSED REVIEW OF SYSTEMS: as above. There are no hospital problems to display for this patient. Active Non-Hospital Problems Diagnosis ??? Severe protein-calorie malnutrition ??? Hypoxia ??? Acute blood loss anemia ??? Chronic respiratory failure with hypoxia ??? Hypotension ??? Chest pain FAMILY HISTORY: Negative for bleeding/clotting disorders or anesthetic complications. SOCIAL HISTORY: Social History Tobacco Use Smoking Status Never Smoker Smokeless Tobacco Never Used Social History Substance and Sexual Activity Alcohol Use Yes ??? Alcohol/week: 1.0 - 3.0 standard drink ??? Types: 1 - 3 Glasses of wine per week Comment: Difficult to assess Denies IVDU or smoking Current ETOH user (2-3 days/ wk), denies abuse however seen in chart that she required phenobarb protocol in ICU 1 year ago Lives alone, independent MEDICATIONS: No current facility-administered medications for this encounter. OBJECTIVE: Temp: [36.9 ??C (98.4 ??F)] Resp: [16] BP: (137)/(73) No intake or output data in the 24 hours ending 08/06/21 0057 There is no height or weight on file to calculate BMI. PHYSICAL EXAM: Gen: NAD, resting comfortably, AOx3 HEENT: NC, AT CV: RRR assessed peripherally Pulm: No incr WOB on RA Skin: Intact Psych: Nl mood and affect Right Upper Extremity Exam: No TTP clavicle, shoulder, humerus, elbow, forearm, wrist, hand Painless range of motion of shoulder / elbow / wrist / fingers No effusion in shoulder / elbow / wrist No ecchymosis, erythema, or overlying skin changes. Sensation intact to light touch in Ax/M/R/U/LABC distributions Motor intact (5/5) shoulder abduction, elbow flexion/extension, wrist flexion/extension, insurance defense paralegal, EPL, AIN, IO Brisk capillary refill distally 2+ radial pulse Left Upper Extremity Exam: No TTP clavicle, shoulder, humerus, elbow, forearm, wrist, hand Painless range of motion of shoulder / elbow / wrist / fingers No effusion in shoulder / elbow / wrist No ecchymosis, erythema, or overlying skin changes. Sensation intact to light touch in Ax/M/R/U/LABC distributions Motor intact (5/5) shoulder abduction, elbow flexion/extension, wrist flexion/extension, insurance defense paralegal, EPL, AIN, IO Brisk capillary refill distally 2+ radial pulse Right Lower Extremity Exam: Leg shortened and externally rotated significant TTP about proximal femur/hip No effusion in knee/ankle. No TTP about knee/ankle No ecchymosis, erythema, or overlying skin changes. Sensation intact to light touch in Saphenous/Sural/LFC/Femoral/MP/LP/T/DP/SP distributions Motor intact EHL/FHL. ADF/APF limited by pain at hip but firing. Brisk capillary refill distally 2+ PT pulse Left Lower Extremity Exam: No TTP pelvis, hip, femur, knee, tib/fib, ankle, foot Painless range of motion of Hip / knee / ankle No effusion in knee / ankle No ecchymosis, erythema, or overlying skin changes. Sensation intact to light touch in Saphenous/Sural/LFC/Femoral/MP/LP/T/DP/SP distributions Motor intact hip flexion/extension, knee flexion/extension, ankle flexion/extension, EHL/FHL/TA Brisk capillary refill distally 2+ PT pulse LABS: Last wbc, hgb, hct plt No results for input(s): WBC, HGB, HCT in the last 72 hours. Invalid input(s): PLT Last 3 Coags No results for input(s): PT, INR, PTT in the last 168 hours. IMAGING: Xray R hip/femur: Displaced right femoral neck fracture with retroversion of femoral head ASSESSMENT/RECOMMENDATIONS: 60 y.o. female who presents with acute right displaced femoral neck fracture after GLF yesterday AM. 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 She appears hemodynamically stable on arrival here with no is identifiable acute other medical active issues however given her significant medical history in addition to baseline underlying lung disease, would very much appreciate medicine consultation for preoperative evaluation with stratification. Assuming no interventions recommended medically, will plan to proceed to OR today. Given the displaced nature of this fracture pattern, discussed at length with the patient the need for surgical intervention given the immobility that would result from nonoperative management that would render her bedbound. Discussed surgical options and signed consent for total hip arthtroplasty at this time but will discuss as operative team this morning and come up with optimal surgical plan for her. I am concerned about her underlying ETOH use and possibility of underreporting as she has a history of withdrawal 1 year ago when she reported more heavy use at that time, although states that was in the setting of her 's recent passing from cancer. Will place on CIWA protocol regardless and appreciate medicine input after their consultation. - Activity- NWB RLE - DVT prophylaxis- ASA 81mg BID - Antibiotics: periop ancef - Diet - NPO - Imaging needed- none - Discuss with Dr. Sherif Costello MD P. [phone] 08/06/21 12:57 AM No future appointments. Anne Marie Costello MD - 08/06/2021 12:56 AM EDT INTERVAL ORTHOPAEDIC HISTORY AND PHYSICAL The patient's history and physical exam have been reviewed and completed. There has been no intervalchange from that of the pre-operative history and physical exam done within the last 30 days. EXAM: Cardiac: Regular rate, rhythm, no m/r/g Lungs: Clear to ascultation bilaterally. On 3L O2 (Baseline) Patient with RIGHT femoral neck fracture. Plan for OR, likely today. Anne Marie Costello MD Orthopaedic Surgery documented in this encounter Miscellaneous Notes Plan of Care - Pamela Barney RN - 08/14/2021 1:50 PM EDT Patient discharged to home with [facility] services. IV removed, site benign. My assessment remains unchanged from my previous assessment, A&Ox4. On 4L NC baseline at home, went home with the patient's personal portable oxygen for the car ride home. Patient denies chest pain, does have shortness of breath with exertion at baseline. Discussed pain management with patient, pain tolerable. Patient medicated prior to discharge with scheduled Gabapentin, approved by MD to give early. Patient has all belongings and supplies needed. Patient received discharge summary and prescriptions. These were reviewed. All questions answered. Patient encouraged to call with questions or concerns. Patient discharged to home with friend. Discharge Summary was faxed to [facility]. Pamela Barney RN Care Management Discharge - Erin Alfredo RN - 08/14/2021 1:03 PM EDT CARE MANAGEMENT FINAL DISCHARGE NOTE Chart reviewed, care reviewed with primary team and at interdisciplinary rounds. Patient is medically ready for discharge to home with home health. Needs for Transition of Care: Plan for discharge is: Home w/ Services Outpatient Agency/Support Group Needs: Homecare agency Home Health Services: Registered Nurse, Physical Therapy, Occupational Therapy Agency Referrals & Follow-up Care: [facility] [place] [address] [place] [address] Transportation: family or friend will provide Wheelchair van/Ambulance? No Functional status prior to admission: Independent Home Environment: Others in the home: alone. Current Living Arrangements: home/apartment/condo. Accessibility Concerns:apt is on the 3rd floor, uses an elevator to get to her apt. Current Functional Ability: Independent *stand by assist DME used at home: grab bar - toilet, grab bar - tub/shower, shower chair (Patient has a Walker at home) DME Needed at Discharge: [facility] To be delivered to patient room Patient is insured through: Primary Insurance: [employer] MANAGED MEDICARE Payor: [employer] MANAGED MEDICARE / Plan: AETNA AC MANAGED MEDICARE / Product Type: *No Product type* / Secondary Insurance: N/A Prescription Coverage: Yes Preferred Pharmacy: [address] [phone] [address] [facility] [address] [facility] [address] [facility] [address] [place] [address] [place] [address] [place] [address] [address] [address] [place] [address] [address] [facility] [id number] This plan was formulated with input from patient, and team. All are in agreement with plan. Erin Alfredo RN, MSN [employer] - Medicine Office of Care Management Pager: [phone] Plan of Care - Tracy Bynum RN - 08/14/2021 3:08 AM EDT OUTCOME EVALUATION NOTE: OUTCOME SUMMARY: Plan was for to have patient on BiPAP overnight, pt refused. Last BM was 08/13. Patient voiding adequately, up to toilet. Patient has a dressing to R hip, CDI. Ativan given see MAR. Patient was intermittently confused, reoriented as needed. Patient's pain adequately controlled, see MAR for medications given. Patient denies chest pain, SOB, N/T. Will continue to monitor and help patient reach d/c goals. PLAN MOVING FORWARD: BiPAP at die set up worker oxygen and PCO2 Ativan scores Q4 Pain control Mobilize D/c planning INDIVIDUALIZED FALL PREVENTION: Patient is currently a high risk to Fall. Patient educated on bed/chair alarm, intermittently demonstrates proper use of call magdaleno, but does get up without assistance periodically. Pt verbalizes understanding of fall preventions implemented. Patient-specific fall risk factors per assessment: [current deficits]: AMS, Post-op, IV Sites, Pain,Medications, Hospital Environment. Assistance [level of assistance required for transfers and ambulation]: SBA w/ FWW Supervision [direct monitoring required during toileting and ADLs]: Eyes on assistance with ADL's Surveillance [continuous indirect monitoring]: Bed Alarm, Masimo, Purposeful Rounding, NKE Bedside Report CPG GOAL OUTCOME EVALUATION: Tracy Bynum RN Plan of Care - Pamela Barney RN - 08/13/2021 7:03 PM EDT OUTCOME EVALUATION NOTE: OUTCOME SUMMARY: Patient was lethargic and oriented to self only this AM, during AM med pass patient was difficult toarouse and required sternal rub initially and then required repeated verbal and gentle shaking to arouse. Pt was too drowsy to take her morning meds. Team notified and came to assess, VBG obtained and showed a PCO2 of 75, MD notified, Respiratory therapy came and started the patient on Bipap per orders, after 1 hour of Bipap patient was A&O x 4. VBG recheck a little over an hour after Bipap was removed, PCO2 was 82, team notified of critical lab, bolus of electrolyte replacement w/ pH of 7.4 administered. Team stated recheck was not necessary unless patient becomes lethargic / somnolent / difficult to arouse. Plan is to have patient on BiPAP overnight. Last BM was today 08/13. Patient voiding adequately, up to toilet. Patient has a dressing to R hip, CDI. Ativan given x1. Patient was able to answer orientation questions for the remainder of the shift, though was intermittently confused, reoriented as needed. Patient's pain adequately controlled, see MAR for medications given. Patient denies chest pain, SOB, N/T. Will continue to monitor and help patient reach d/c goals. PLAN MOVING FORWARD: BiPAP at die set up worker oxygen and PCO2 Ativan scores Q4 Pain control Mobilize D/c planning INDIVIDUALIZED FALL PREVENTION: Patient is currently a high risk to Fall. Patient educated on bed/chair alarm, intermittently demonstrates proper use of call magdaleno, but does get up without assistance periodically. Pt verbalizes understanding of fall preventions implemented. Patient-specific fall risk factors per assessment: [current deficits]: AMS, Post-op, IV Sites, Pain,Medications, Hospital Environment. Assistance [level of assistance required for transfers and ambulation]: SBA w/ FWW Supervision [direct monitoring required during toileting and ADLs]: Eyes on assistance with ADL's Surveillance [continuous indirect monitoring]: Bed Alarm, Masimo, Purposeful Rounding, NKE Bedside Report CPG GOAL OUTCOME EVALUATION: Pamela Barney RN Consult Note - Abel Blake MD - 08/13/2021 11:00 AM EDT Critical Care Evaluation Time of evaluation: 1100 Reason for consultation: Hypercapnia SUBJECTIVE: Briefly, Paradise Abel is a 60 y.o. female who is hospital day 7 for hip fracture. The patient has a history significant for pulmonary FOLEY on 3-4L O2 at home, HTN, angiomyolipoma of kidney s/p nephrectomy. Patient admitted 7 days ago for R. Hip fracture that is now s/p total hip arthroplasty. Her course has been complicated by pain control requiring IV opiods and alcohol withdrawal on ativa CIWA protocol. She has largely tolerated these medications without issue. This morning she was somnolent requiring sternal rub to arouse and was subsequently not oriented to place or time. She reportedly said it was 1919 and she was at home. A VBG was performed showing pH 7.33 PCO2 75. The team started her on bipap via the v30 and called critical care for evaluation. I saw the patient on bipap and she was participatory in history but limited by the mask. She denies shortness of breath. Says she has not required bipap before. Denies chest pain. OBJECTIVE: Last value Range last 24 hrs Temperature Temp: 36.1 ??C (97 ??F) Temp: [36.1 ??C (97 ??F)-36.8 ??C (98.2 ??F)] Heart Rate Heart Rate: 96 Heart Rate: [96-101] Blood Pressure BP: 127/81 BP: (115-135)/(73-91) Respiratory Rate Resp: 18 Resp: [17-18] SpO2 SpO2: 97 % SpO2: [94 %-100 %] Art BP BP (Arterial Line): -- Physical Exam: General: Patient appears comfortable on stretcher in no acute distress. Eyes: . Sclera non-icteric. Head: Normocephalic and atraumatic ENT: bipap mask in place Cardiovascular: Heart regular rate and regular rhythm with no murmur, rub, or gallop. 2+ radial pulses bilaterally. No peripheral edema. Pulmonary: Non-labored respirations on bipap. Equal chest rise. Abdomen: Abdomen soft, non-tender. No rebound or guarding. Skin: Warm and dry. Neurological: Alert and oriented. No facial asymmetry. Moving all extremities. ASSESSMENT/PLAN: 60 y.o. female with history most significant for pulmonary FOLEY on 3-4L home O2 who was admitted for a hip fracture s/p JACKSON now with hypercapnia for which critical care is consulted. Patient did receive both hydromorphone and ativan early this morning although she has tolerated this combo for a few days now without issue. Later she was found somnolent requiring sternal rub and not oriented. A VBG showed 7.33/75. She was placed on bipap and on my evaluation is comfortable and alert. Additionally patient has had rising bicarb in setting of home lasix use. It is unclear to me what her baseline bicarb is as there is little historical data but in the setting of her pulmonary foley with a FEV1 of 19% she is a chronic CO2 retainer. As this value is a VBG, her pH is nearly normal. Acute [id number] is usually in the setting of a drop in pH although the contraction alkalosis leading to [id number] makes it a bit less clear if she was sleepy due directly to CO2. As such, the medicine team is trialing an hour of bipap and will repeat a gas later. Nursing team comfortable with this plan. I f she has repeated episodes of somnolence associated with CO2 we will escalate to rescue bipap however given that this degree of CO2 may not be far from her baseline the team will continue to evaluate other causes of altered mentation. Perhaps the patient needs more time to clear her opiod and benzo. They are also holding diuresis to prevent further contraction. Please page the critical care fellow at pager [phone] for questions or new concerns. Abel Blake MD Critical Care Fellow Plan of Care - Kristie, Osmel Astudillo RN - 08/12/2021 4:25 AM EDT OUTCOME EVALUATION NOTE: OUTCOME SUMMARY: Patient A&O x 1 at beginning of shift progressing to oriented x 4 within a few hours. Last BM was on 08/11. Patient voiding adequately with BRP and 1 assist. Patient has a dressing to right hip/thigh, noted to be clean dry and intact. Patients pain adequately controlled, see MAR for medications given. Patient denies chest pain, shortness of breath, numbness or tingling. Unnecessary awakening of patient avoided for delirium prevention and the promotion of a proper sleep wake cycle. Will continue to monitor and help patient reach d/c goals. PLAN MOVING FORWARD: Pain control Mobilize D/c planning INDIVIDUALIZED FALL PREVENTION: Patient is currently a high risk to Fall. Patient educated on bed/chair alarm, demonstrates proper use of call magdaleno and verbalizes understanding of fall preventions implemented. Patient-specific fall risk factors per assessment: [current deficits]: IV Sites, Pain, Medications, Hospital Environment. Assistance [level of assistance required for transfers and ambulation]: 1 assist with walker Supervision [direct monitoring required during toileting and ADLs]: 1 assistance with ADL's Surveillance [continuous indirect monitoring]: Masimo, Purposeful Rounding, Bedside Report Patient-specific fall prevention interventions for sensory deficits provided, if applicable: [X] N/A CPG GOAL OUTCOME EVALUATION: Plan of Care - Osmel Flowers RN - 08/11/2021 3:58 AM EDT OUTCOME EVALUATION NOTE: OUTCOME SUMMARY: Patient A&O x 4, lungs clear, heart rate regular. Last BM was on 08/10. Patient voiding adequately with BRP. Patient has a dressing to right hip/thigh, noted to be clean dry and intact. Patients pain adequately controlled, see MAR for medications given. Patient denies chest pain, shortness of breath, numbness or tingling. Unnecessary awakening of patient avoided for delirium prevention and the promotion of a proper sleep wake cycle. Will continue to monitor and help patient reach d/c goals. PLAN MOVING FORWARD: Pain control Mobilize D/c planning INDIVIDUALIZED FALL PREVENTION: Patient is currently a high risk to Fall. Patient educated on bed/chair alarm, demonstrates proper use of call magdaleno and verbalizes understanding of fall preventions implemented. Patient-specific fall risk factors per assessment: [current deficits]: IV Sites, Pain, Medications, Hospital Environment. Assistance [level of assistance required for transfers and ambulation]: 1 assist with walker Supervision [direct monitoring required during toileting and ADLs]: 1 assistance with ADL's Surveillance [continuous indirect monitoring]: Masimo, Purposeful Rounding, Bedside Report Patient-specific fall prevention interventions for sensory deficits provided, if applicable: [X] N/A CPG GOAL OUTCOME EVALUATION: Care Management - Erin Alfredo RN - 08/10/2021 2:56 PM EDT OFFICE OF CARE MANAGEMENT PROGRESS NOTE LOS: Hospital Day 4 days Chart reviewed, care reviewed with primary team and at interdisciplinary rounds. Patient continues to meet inpatient level of care related to: concern for ETOH withdrawal, requiring ativan prn for symptom management. Functional status prior to admission: Independent Home Environment: Others in the home: alone. Current Living Arrangements: home/apartment/condo. Accessibility Concerns: apt is on the 3rd floor, uses an elevator to get to her apt. Current Functional Ability: Independent *stand by assist DME used at home: grab bar - toilet, grab bar - tub/shower, shower chair (Patient has a Walker at home) DME Needed at Discharge: -none Patient is insured through: Primary Insurance: AETNA MANAGED MEDICARE Payor: AETNA MANAGED MEDICARE / Plan: AETNA AC MANAGED MEDICARE / Product Type: *No Product type* / Secondary Insurance: N/A Prescription Coverage: Yes Preferred Pharmacy: [address] [facility] [phone] [address] [place] [facility] [address] [facility] [address] [facility] [address] [place] [address] [address] [facility] [address] [facility] [address] [facility] [address] [facility] [address] [facility] [address] [facility] [address] Last Physical Therapy Recommendation: home with home health, home with supervision (home health aide) with None Last Occupational Therapy Recommendation: home with home health, home with supervision (Home OT) with walker, front wheeled, shower chair Plan for discharge is: Home w/ Services Outpatient Agency/Support Group Needs: Homecare agency Home Health Services: Registered Nurse, Physical Therapy, Occupational Therapy Agency Referrals & Follow-up Care: Contact information for follow-up [facility], [place] [address] Transportation: family or friend will provide Barriers to discharge: None; Pending medical course and recovery Plan going forward: Care Management will continue to follow and assist with discharge planning and coordination of care as indicated. Anticipated Date of Discharge: 08/11/2021 Erin Alfredo RN, MSN [employer] - Medicine Office of Care Management Pager: [phone] Plan of Care - Jeanie Hagen RN - 08/10/2021 3:59 AM EDT OUTCOME EVALUATION NOTE: OUTCOME SUMMARY: Patient progressing towards d/c goals appropriately at this time. Patient's pain adequately controlled with scheduled pain medications and PRN, see MAR for medications given. Pt is alert and oriented to self, intermittently confused about time and situation. Sleeping between care overnight. Silver surgical dressing to RLE remains clean, dry and intact. Ativan assessment completed Q2 hrs while awake, scoring. No other acute events overnight. Will continue to monitor and help patient reach d/c goals. PLAN MOVING FORWARD: Pain control Mobilize Ativan assessment D/c planning INDIVIDUALIZED FALL PREVENTION: Patient is currently a high risk to Fall. Patient educated on bed/chair alarm, demonstrates proper use of call magdaleno and verbalizes understanding of fall preventions implemented. Patient-specific fall risk factors per assessment: [current deficits]: Altered mental status, Pain, Medications, Hospital Environment. Assistance [level of assistance required for transfers and ambulation]: 1 assist w/ FWW Supervision [direct monitoring required during toileting and ADLs]: Hands on with ADL's Surveillance [continuous indirect monitoring]: Masimo, Purposeful Rounding, Nurse Knowledge Exchange Patient-specific fall prevention interventions for sensory deficits provided, if applicable: n/a : Plan of Care - Jacquie Warren RN - 08/09/2021 7:46 PM EDT OUTCOME EVALUATION NOTE: OUTCOME SUMMARY: Patient oriented to self only, confused, intermittently lethargic. Hallucinations present. Intermittent agitattion. Restless for most of shift, multiple attempts to get OOB. VSS on 3-4L NC at rest, and5-6L NC when ambulating to bathroom for de-sats to mid 80's. Ambulating with 2 assist and FWW for uns teady gait. Right hip dressing CDI. Pt denies any numbness/tingling, chest pain, SOB. Scoring for PRN ativan, see flowsheet + MAR. Pt also receiving scheduled ativan now. BP's softer this afternoon, team aware. Chest x-ray completed. PLAN MOVING FORWARD: Pain control Mobilize Ativan Reorient D/c planning INDIVIDUALIZED FALL PREVENTION: Patient is currently a high risk to Fall. Patient educated on bed/chair alarm, demonstrates proper use of call magdaleno and verbalizes understanding of fall preventions implemented. Patient-specific fall risk factors per assessment: [current deficits]: IV, Confusion, Pain, Medications, Hospital Environment. Assistance [level of assistance required for transfers and ambulation]: 1-2 assist w/ FWW, unsteady Supervision [direct monitoring required during toileting and ADLs]: 1 assist with ADL's Surveillance [continuous indirect monitoring]: Bed alarm set, Masimo, Purposeful Rounding, Nurse Knowledge Exchange Initial Assessments - Malinda Maradiaga RN - 08/07/2021 11:27 AM EDT Office of Care Management Initial Assessment Malinda Maradiaga RN reviewed record and discussed patient with Care Team. Source of Information: Team, bedside nurse, medical record, and Patient, Chart Review Introduced self/reviewed role; services accepted. Reason for Hospitalization: right JACKSON after FNFx Covid Vaccination Status: 1st, 2nd & booster ([employer]) Last COVID test: Lab Results Component Value Date [id number] Not Detected 08/06/2021 Past medical History: Past Medical History: Diagnosis Date ??? Angiomyolipoma of left kidney ??? Carpal tunnel syndrome ??? Clear cell carcinoma of kidney, right ??? HTN (hypertension) ??? Hyperlipidemia ??? Lymphangioleiomyomatosis Hospitalizations Within the Past 30 Days: no previous admission in last 30 days Current Decision-Making Capacity: Self Advance Care Planning: Attempt Cardiopulmonary Resuscitation - Inpatient <no information> -Advanced Directive: No, declines If AD's have not been completed Brother Chente would be surrogate decision maker per [place] surrogate decision making law. (Only good for 180 days) Any patient receiving care at [facility] must abide by [place] law. The hierarchy for surrogate decision making is: (a) Patient???s spouse, or civil union partner or common law spouse unless there is a divorce proceeding, separation agreement, or restraining order limiting that person???s relationship with the patient. (b) Any adult son or daughter of the patient. (c) Either parent of the patient. (d) Any adult brother or sister of the patient. (e) Any adult grandchild of the patient. (f) Any grandparent of the patient. (g) Any adult aunt, uncle, niece, or nephew of the patient. (h) A close friend of the patient. (i) The agent with financial power of regulatory attorney or a conservator appointed in accordance with RSA 464-A. (j) The guardian of the patient???s estate. Current Coping/Education/Information Needs: yasmin Current Functional Ability: Assistive Equipment and Assistive Person Functional Status Prior to Admission: Independent Prior iADLS: Independent with all iADLs Home Environment: Others in the home: alone. Current Living Arrangements: home/apartment/condo. Accessibility Concerns:apt is on the 3rd floor, uses an elevator to get to her apt. Current DME: grab bar - toilet, grab bar - tub/shower, shower chair (Patient has a Walker at home) Home Address confirmed as: [address] [place] [id number] Social & Family Supports: All names listed below confirmed with patient as current and correct Extended Emergency Contact Information Primary Emergency Contact: Chente Lucas Mobile Relation: Sibling Current Care Provided by: self Provides Primary Care For: no one Caregiver if needed: none Quality of Family relationships: involved, supportive Community Resources being provided currently: none Behavioral Health History: history of anxiety and depression. is managed by her pcp Substance Use/Abuse listed: Social History Tobacco Use Smoking Status Never Smoker Smokeless Tobacco Never Used 0 No problems reported 1-2 Low level 3-5 Moderate level 6-8 Substantial level 9- 10 Severe level 0 to 7 points: Low risk 8 to 15 points: Medium risk 16 to 19 points: High risk 20 to 40 points: Addiction likely Other Pertinent/Service Specific Information: yasmin Health/Prescription Coverage: Primary Insurance: N/A Payor: / Secondary Insurance: N/A Prescription Coverage: Yes Preferred Pharmacy: [facility] [place], [place] - [address] [facility] [address] [facility] [phone] [facility] [address] [facility] [address] [facility] [address] [facility] [address] [facility] [address] [place] [address] [address] [facility] [address] [facility] [address] [place] Status: Patient is a : No Primary Care Provider: FRANCE Chen [phone] Patient/Caregiver Goals of Treatment: Patient would like to return home with visiting nurses Potential Needs for Transition of Care: none Agency Referrals: The Patient has been provided a list of Home Health Agencies which serve their preferred geographic area. A letter describing our affiliations was reviewed with them and they were educated about their right to choose where referrals are placed. Provided patient with [facility] Star Quality Rating for Home care hand out. Patient requests referral to [facility] [employer]. PHONE: [phone] FAX: [phone]. Expected date of discharge: 08/07/2021. Referral routed to the Tank Truck Engine Mechanic for matching with agency/vendor and to provide any required information. Transportation: no concerns Transportation Anticipated: family or friend will provide Concerns to be Addressed: discharge planning Assessment: Patient is admitted to ortho service for right JACKSON after FNFx Plan: Patient to see PT/OT A member of the Care Management team will continue to monitor progress, follow for continuity of care and assist with transition of care planning. Malinda BOJORQUEZ, RN CM Phone: [phone] Pager: [phone] Initial Assessments - Tereza Schuster, OT - 08/07/2021 10:04 AM EDT Occupational Therapy Evaluation Patient profile: Paradise Abel is a 60 y.o. female admitted on 08/06/2021 s/p ground fall d/t tripping over one of her moving boxes. Imaging obtained demonstrating a R femoral neck fx. She is now POD#1 s/p R JACKSON posterior approach performed by Dr. Peterson on day of admission. Past Medical History: Diagnosis Date ??? Angiomyolipoma of left kidney ??? Carpal tunnel syndrome ??? Clear cell carcinoma of kidney, right ??? HTN (hypertension) ??? Hyperlipidemia ??? Lymphangioleiomyomatosis Past Surgical History: Procedure Laterality Date ??? KIDNEY REMOVAL Right ??? PRO TOTAL HIP ARTHROPLASTY Right 08/06/2021 TOTAL HIP ARTHROPLASTY - POSTERIOR (WRVU 20.72) performed by Dusty Peterson MD at [facility] MAIN OR ??? PRO UPPER GI ENDOSCOPY, DIAGNOSTIC N/A 11/19/2018 EGD, UPPER GI ENDOSCOPY performed by Sandor Dasilva MD at [facility] ENDOSCOPY Social History: Patient lives alone with her cat in a 3rd fl apartment with elevator access. No LEIDY the building. Laundry on the 3rd fl. Pt reported she has a walk-in shower and sleeps in a flat bed. She is unsure if she has any AD in her shower d/t just moving. Friends live in the building and are supportive. DME: [employer] Baseline ADL/Mobility: I ADLs, I mobility no AD, on 3-4L NC with portable. Pt also has a stationary condenser. I driving and IADLs. X1 fall in the past 6 months which resulted in her current admission Precautions/Special Considerations: Standard precautions (wide BRUCE sit><stand), Abduction pillow at rest, Sherman, 4L O2 via NC Subjective: I haven't even used the shower yet, I just moved and was unpacking my kitchen Objective: Seen today for OT evaluation. Cognitive Status/Behavior: ?? Behavior / Mood: alert and cooperative ?? Alert and oriented to: person, place, time and situation ?? Follows commands: multi step and 100% of the time ?? Attention: WFL ?? Safety awareness: WFL, fully aware of deficits and good safety precautions Vision & Perception: ?? WNL/WFL ?? corrective lenses for reading Communication: WFL Range of motion, strength, coordination: Hand dominance: right Bilateral UEs are within functional limitations for AROM and strength LE limitations: WBAT RLE with Standard precautions (wide BRUCE sit><stand) Sensation: Intact Activities of Daily Living: Self-feeding: I with taking sips of water from cup with straw sitting EOB Grooming: Recommend S with set up standing sink side Dressing: Min A donning pants sitting EOB with therapist lacing sherman through R pant leg, pt required few cues for sequencing AT dressing surgical side first - S lacing pants in standing Bathing: Recommend SBA with use of AD when showering for safety Toileting: Shreman; Recommend S-SBA for completion of toileting Functional Mobility: Supine to sit: SBA with HOB>40* and use of leg sharepoint admin for RLE to EOB on the R side Sit to stand: x3 total from EOB/recliner with use of her FWW Ambulation: ~20' with FWW with x1 rest break sitting EOB - cues for PLB d/t drop in her SpO2 while on 6L Stand to sit: x3 total onto various surface heights - required cues for hand placement onto arm rests for safety and controlling her descent d/t attempting to sit prematurely Sit to supine: n/a Balance: Sitting balance: Good Standing balance: Fair + Vitals: At Rest With Activity SpO2 89-91% 4L 81% 4L > increased to 5L with 79-88%, PLB and rest breaks Heart Rate 105bpm 110bpm Blood Pressure 129/77 130/82 Pain: Pt endorsing 8/10 pain in her R hip unchanged at rest/activity - did not limit her ability to participate in her evaluation Skin: Bandage CDI Education: patient have been educated on Role of occupational therapy/rehabilitation, Transfers, ADL, Breathing exercises, Positioning, Safety, Precautions/Protocol, Functional Mobility, Activity pacing/Energy conservation, Balance, Recommendations, Family training and Discharge planning and verbalizes and demonstrates understanding. Patient status, treatment, and mobility recommendations discussed with nursing. Assessment: Pt has been seen for occupational therapy evaluation. Paradise Abel presents with the following performance skill deficits and client factors: increased pain, decreased activity tolerance, decreased strength, decreased sitting/standing balance, deconditioning, precautions/bracing, compr omised mobility status and increased O2 requirements . These performance deficits have led to activity limitations and participation restrictions in the following areas of occupation: dressing, bathing, toileting, transfers/mobility, rest/sleep, home management, leisure and driving. Education providedon her hip precautions and how to maintain when participating in her self care tasks and functional mobility. Pt demo'd her ability to mobilize and perform her LB dressing with SBA-min A from therapist. Ultimately, session limited by her inability to maintain stable SpO2 on her home O2 levels. Education and encouragement provided to integrate PLB and use of the incentive spirometer throughout the day- pt receptive. Pt would benefit from further inpatient OT interventions to address performance deficits and maximize participation and independence with occupations of daily living. Recommendation upon d/c is for thept to return home with support/assistance from friends and JOB RECRUITER, home OT when performing her daily tas ks. Pt in agreement with POC. Equipment needs at discharge: TBD Anticipated Discharge Disposition (OT): home with home health, home with supervision (Home OT) Other Recommendations: ?? Utilize upright chair position using bed features or transfer to recliner chair as appropriate with 1A, ambulate as tolerated ?? Encourage participation in ADL's by providing set up A on tray table and physical assist only as needed Other Recommendations: No other consults recommended at this time Goals: To be achieved by 08/21/21. Patient will stand at sink level with supervision x10 min for ADLs. Patient will dress lower body indep with adaptive equipment prn. Patient will complete all aspects of toileting I, AE PRN Patient will ambulate to the bathroom with supervision, assistive device as needed. Patient will demonstrate energy conservation principals with all ADLs indep. Pt will both verbalize and demo hip precautions I Pt will maintain SpO2 88-92% on home O2 when performing her daily tasks Plan: OT: Therapy Frequency (OT): 1-3 more times Planned OT interventions: Role of occupational therapy/rehabilitation, Transfers, Assistive device/technique, ADL, Breathing exercises, Positioning, Safety, Precautions/Protocol, Functional Mobility, Activity pacing/Energy conservation, Balance, Recommendations and Discharge planning. Total Minutes, Occupational Therapy: 31 (Eval [id number]) 2017 OT Evaluation Code Rationale: ?? Diagnosis & Pertinent Co-Morbidities affecting Plan of Care: see PMHx ?? Occupational Profile & Client History: Brief Expanded Extensive x ?? Assessment of Occupational Performance: 1-3 performance deficits 3-5 performance deficits 5 + performance deficits x ?? Clinical Decision Making: Low Moderate High x Clinical decision making of moderate complexity using standardized patient assessment instrument andmeasurable assessment of functional outcome. Pager: [phone] Tereza Schuster, OTR/L 08/07/2021 Occupational Therapy Rehabilitation Department Consult Note - Roseline Harman MD - 08/07/2021 9:19 AM EDT Medicine Consults Progress Note Consult Team/Pager: Medicine #[phone] ID: Paradise Abel is a pleasant 60 y.o. 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 Gorman. Medicine was consulted for pre-operative assessment. 24 Hour Events/Subjective: -s/p R JACKSON yesterday, uncomplicated ESBL 100ml -Has remained HDS -Intermittently dips to mid 80s on 3L, currently on 4L NC satting 88-90% -Reports she is typically on 3-4L NC O2 at home, with activity sometimes uses up to 5L -Reports pain 9/10 this morning before analgesics -Denies increase in SOB or fevers / chills , sputum, CP, LHa/dizziness Vitals: Patient Vitals for the past 24 hrs: Temp Heart Rate From SP02 Pulse Resp BP SpO2 O2 Flow Rate (L/min) O2 Device 08/06/21 1113 37.2 ??C (99 ??F) 91 bpm 91 23 (!) 129/97 100 % 6 L/min Simple mask 08/06/21 1115 -- 94 bpm 94 18 126/82 98 % 3 L/min NC 08/06/21 1121 -- 93 bpm 93 18 -- 92 % 3 L/min CT 08/06/21 1130 -- 90 bpm 90 17 122/85 95 % 3 L/min CT 08/06/21 1145 -- 91 bpm 91 18 112/79 96 % 3 L/min CT 08/06/21 1200 -- 88 bpm 88 16 112/72 95 % 3 L/min CT 08/06/21 1229 37.7 ??C (99.9 ??F) 98 bpm -- 16 112/71 95 % 3 L/min CT 08/06/21 1232 -- -- -- -- -- -- 3 L/min CT 08/06/21 1246 36.6 ??C (97.9 ??F) 97 bpm -- 16 129/71 96 % 2 L/min CT 08/06/21 1520 36.9 ??C (98.4 ??F) 92 bpm -- 16 108/64 92 % 3 L/min CT 08/06/21 1953 36.8 ??C (98.2 ??F) 97 bpm -- 16 110/65 (!) 88 % -- -- 08/06/21 2348 36.8 ??C (98.2 ??F) (!) 102 bpm -- 16 111/66 91 % -- -- 08/07/21 0400 36.8 ??C (98.2 ??F) 96 bpm -- 18 145/83 (!) 84 % -- -- 08/07/21 0910 -- (!) 110 bpm -- -- 132/77 (!) 88 % 4 L/min -- Ins/Outs: Intake/Output Summary (Last 24 hours) at 08/07/2021 0925 Last data filed at 08/07/2021 0920 Gross per 24 hour Intake 590 ml Output 1175 ml Net -585 ml Physical Exam: Gen: Thin appearing, laying in bed comfortably on NC HEENT: MMM, no JVD CVS: tachycardic, no m/r/g Pulm: distant breath sounds, poor air movement, no wheezes, rhonci or crackles, no use of accessory muscles Abd: NABS, soft, NT, ND, no abnormal masses or pulsations Ext: warm, dry, R hip surgical site bandaged w/ R >L LE edema Labs: Recent Labs 08/07/21 0342 08/06/21 0354 WBC 8.8 8.3 HGB 10.6* 12.4 HCT 33.5* 37.7 PLATELET 199 187 Recent Labs 08/07/21 0342 08/06/21 0354 NA 137 137 K 4.1 3.4* CL 100 97* CO2 24 28 BUN 12 21* CREATININE 0.56* 0.58* No results for input(s): AST, ALT, ALKPHOS, BILITOT, BILIDIR in the last 168 hours. Recent Labs 08/07/21 0342 08/06/21 035 CALCIUM 7.8* 8.5 MAGNESIUM 0.89 0.60* PHOS -- 2.8 Recent Labs 08/06/21 035 INR 0.9 PT 10.2 PTT 26 No results for input(s): CK, TROPONINT in the last 168 hours. No results for input(s): POCGLU in the last 168 hours. Microbiology: Microbiology Results (Last 30 days) Procedure Component Value Units Date/Time COVID-19 PCR [[id number]] Collected: 08/06/21 0300 Lab Status: Final result Specimen: Nasopharyngeal Swab Updated: 08/06/21527 SARS-CoV-2 RNA PCR Not Detected Comment: This result should be interpreted in combination with the clinical observations, patient history and epidemiological information. For testing of asymptomatic individuals, assay performance characteristics and clinical utility have not been evaluated. Testing for SARS-CoV-2 (Severe acute respiratory syndrome coronavirus 2, formerly known as 2019 novel coronavirus or 2019-nCoV) to aid in the diagnosis of COVID-19 is performed using the Simplexa COVID-19 Direct Assay by [employer] as authorized by the FDA issued Emergency Use Authorization (EUA). This assay is intended for In-vitro Diagnostic (IVD) use with nasopharyngeal swabs collected from individuals meeting the CDC criteria for testing. The assay is performed based on the instructions for use and additional guidance provided by the FDA. Testing is performed in the Microbiology Laboratory within the Department of Pathology and Laboratory Medicine at [facility], certified under the Clinical Laboratory Improvement Amendments of 1988 (CLIA), 42 U.S.C. section 263a, to perform high complexity tests. Assay performance has been verified according to clinical laboratory regulatory requirements. Test results are provided above. A result of Not Detected indicates that the viral RNA target is not present but does not preclude SARS-CoV-2 infection. False negative results may occur if a specimen is improperly collected, transported or handled; if amplification inhibitors are present; or if inadequate numbers of viral particles are present in the specimen. A result of Detected suggests a current or recent infection and the patient is presumed to be infected. Positive and negative predictive values for this test are highly dependent on disease prevalence. A result of Invalid indicates the inability to conclusively determine the presence or absence of SARS-CoV-2 RNA in the sample which can be due to a variety of factors. Recollection is recommended in the case of an invalid result. CDC COVID-19 criteria for testing on human specimens and clinical management guidance information are available at the CDC Coronavirus Disease 2019 (COVID-19) webpage under Information for Healthcare Professionals (https://www.cdc.gov/coronavirus/2019-ncov/hcp/index.html). Additional information about this and other EUA tests can be found in provider and patient fact sheets at the following FDA website: https://www.fda.gov/medical-devices/rqvgwpiosep-wmayyth-6948-dwarw-79-rfoltvevv- gqf-xybjpxbqzewcjg-dolufmy-devices/izpty-qrccgyqdtkl-pqvu SARS-CoV-2 Source METER ATTENDANT Swab Inpatient Medications: Scheduled Meds: ??? acetaminophen 1,000 mg Oral Q6H OSMIN ??? gabapentin 300 mg Oral TID ??? ipratropium-albuteroL 3 mL Nebulization Q6H OSMIN ??? sodium chloride 0.9 % (flush) 5 mL Intravenous BID ??? polyethylene glycoL 17 g Oral BID ??? senna-docusate 2 tablet Oral BID ??? aspirin EC 81 mg Oral BID ??? metoprolol tartrate 25 mg Oral BID ??? simvastatin 20 mg Oral QPM ??? sirolimus 2 mg Oral Daily ??? lidocaine 3 patch Transdermal Q24H And ??? lidocaine 3 patch Transdermal Q24H ??? budesonide-formoteroL 2 Inhalation Inhalation 2 times per day ??? predniSONE 10 mg Oral Daily ??? furosemide 40 mg Oral Daily ??? DULoxetine DR 60 mg Oral Daily ??? busPIRone 5 mg Oral QAM Continuous Infusions: ??? sodium chloride 0.9% 1,000 mL (08/07/21 0651) PRN Meds: HYDROmorphone OR HYDROmorphone OR HYDROmorphone, sodium chloride 0.9 % (flush), lidocaine, bisacodyl EC, bisacodyL, ondansetron, traZODone, BUpivacaine (pf), ketorolac, cloNIDine Assessment: Paradise Abel is a pleasant 60 y.o. 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 Post-op doing well, with major issue of pain control. Slightly increased hypoxia compared to baseline, currently on LABA/ICS with duoneb, is excluding home glycopyrrolate inhaler which we do not have access to inpatient. Would stop mIVF at this point as eating and drinking well post-op, would be concerned about pulm edema, and if worsening hypoxia would obtain CXR, however currently is not significantly up compared to home O2 needs. Recommendations: -continue symbicort BID -scheduled duoneb q6h -home pred 10mg QD, sirolimus 2mg -likely DC in 1-2 days per primary, would resume home inhaler regimen on discharge. If prolonged admission, can call pharmacy to order home inhaler for inpatient use. -If worsening hypoxia, please obtain CXR Roseline Harman MD Internal Medicine - PGY3 Medicine Consults #[phone] x Recommendations discussed with primary treating team. Medicine Consult service will continue to follow. Recommendations are above. Medicine Consult service will sign off. If clinical changes occur or newquestions arise, page [phone]. Case discussed with Dr. Glover Associated attestation - Ronit Glover MD - 08/07/2021 2:53 PM EDT Attending staff follow-up documentation Please see Dr. Harman's note for details of the 24hr events, current issues and clinical course. I have discussed, reviewed and agree with the documented history , physical findings, Assessment and Plan of care. I have examined the patient myself on and reviewed all labs and studies personally. Additions to the history, physical, assessment and plan include the followin yo F with end-stage FOLEY on chronic Pred and 3-4L02, who presented for RT hip fracture and underwent RT JACKSON 08/07. Post-operatively was on maintenance IVF and was on 4-5L 02 - denies any resp sx and denies any issues except pain control. Agree with stopping IVF and monitoring. Wean 02 for goal sa02>88%. Ronit Glover MD 08/07/2021 Op Note - Dusty Peterson MD - 08/06/2021 9:26 AM EDT [facility] Operative Note Patient Name: Paradise Abel : [id number] MR#: [id number] Case Date: 08/06/2021 Surgeon: Surgeon(s) and Role: * Dusty Peterson MD - Primary * Ngozi Rinaldi MD - Resident Preoperative diagnosis: Right femoral neck fracture Postoperative diagnosis: Right femoral neck fracture Procedure(s) (LRB): TOTAL HIP ARTHROPLASTY - POSTERIOR (WRVU 20.72) (Right) MODIFIER,QUADRA C (CEMENTED) TAMELA HIP STEM,MEDACTA (Right) Anesthesia: Spinal Estimated Blood Loss: 100 mL Specimens removed during surgery: Intra-Procedure Orders (From admission, onward) Start Ordered 08/06/21 0945 Specimen to Pathology (Multiple Specimen to Pathology requests panel ) ONE TIME Question Answer Comment Clinical History and Diagnosis: Right femoral neck fracture Specimen Source: right femoral head Specimen Type: resection Time specimen removed from patient: 9:40 AM Number of tissue samples (in container) 1 08/06/21 0940 Drains: * No LDAs found * Surgical Closure: Primary Closure - skin incision is completely closed without any wires, tawana, drains or other devices Disposition: awakened from anesthesia, extubated and taken to the recovery room in a stable condition, having suffered no apparent untoward event. Condition: doing well without problems (Please see the Surgical Encounter Summary for any Implant and Specimen details pertinent to this patient.) Indications: The patient is a 60-year-old female who suffered a right displaced femoral neck fracture. After thorough discussion of the risks and benefits, she elected to proceed with total hip arthroplasty. Description of procedure: Implants used: Implant Name Type Inv. Item Serial No. Key Carrier Lot No. LRB No. Used Action CEMENT BONE MEDIUM VISCOSITY 40GM SINGLE DOSE PMMA SMARTSET ([id number]) (AutoReq) - [id number] IMPLANTS CEMENT BONE MEDIUM VISCOSITY 40GM SINGLE DOSE PMMA SMARTSET ([id number]) (AutoReq) [employer] ROMY [id number] Right 2 Implanted SHELL ACET HIP 48MM POR CTD 2 HOLE TI MPACT ([id number]) (AUTOREQ) - [id number] IMPLANTS SHELL ACET [id number] POR CTD 2 HOLE TI MPACT ([id number]) (AutoReq) MEDACTA [place] - MEDACTA [place] [id number] Right 1 Implanted SCREW 6.5X30MM CANC TI MPACT ([id number]) (AUTOREQ) - [id number] IMPLANTS SCREW 6.5X30MM CANC TI MPACT ([id number]) (AutoReq) [employer]ACTA [place] - [employer] [place] [id number] Right 1 Implanted LINER ACET HIP 32MM SZ C FLT POLY MPACT ([id number]) (AutoReq) - [id number] IMPLANTS LINER ACET HIP 32MM SZ C FLT POLY MPACT ([id number]) (AutoReq) [employer]ACT[employer] [place] - [employer] [place] [id number] Right 1 Implanted STEM FEMORAL HIP SZ 0 STND ZAC CLLRLS REG NCK SS QUADRA P ([id number]) (AUTOREQ) - [id number] IMPLANTS STEM FEMORAL HIP SZ 0 STND ZAC CLLRLS REG NCK SS QUADRA P ([id number]) (AutoReq) [employer]ACT[employer] [place] - [employer] [place] [id number] Right 1 Implanted RESTRICTOR HIP 10-16MM CEMENT POLY ([id number]) - [id number] IMPLANTS RESTRICTOR HIP 10-16MM CEMENT POLY ([id number]) [employer] ROMY [id number] Right 1 Implanted HEAD FEMORAL HIP 32MM MED 0MM OFFSET 12/14 TPR CERAMIC ([id number]) (AUTOREQ) - [id number] IMPLANTS HEAD FEMORAL HIP 32MM MED 0MM OFFSET 12/14 TPR CERAMIC ([id number]) (AutoReq) [employer] [place] - MED[employer] [place] [id number] Right 1 Implanted Identification/positioning: After being identified, marked, and having preoperative consent confirmed in the preoperative holding area, the patient proceeded to the operative theater. Anesthesia was induced and the patient was placed in the lateral decubitus position with the operative side up. Her pelvis was secured with anterior and posterior positioners on symphysis pubis and sacrum. The table was adjusted so that her pelvis was level with the floor. A preoperative timeout was held in the patient received preoperative antibiotics. The operative leg was prepped and draped in a sterile fashion. Approach: We began our posterior approach to the hip. A curvilinear incision, proximally 10 cm long, was madewith a #10 blade centered over the posterior third of the greater trochanter. Bovie electrocautery was used to achieve hemostasis. A combination of Bovie electrocautery and sharp dissection were used to dissect down to the iliotibial band. The iliotibial band was cleared with a Mallory and incised. This was extended proximally and distally in line with our skin incision. We split the fibers of the gluteus gin proximally. A charnley bone retractor was placed with care to avoid the sciatic nerve. We internally rotated the hip and took down the bursa on the short external rotators in line with the sciatic nerve. We defined the piriformis tendon. A Cobra retractor was placed underneath the gluteus medius and then the plane between the piriformis and the gluteus minimus was developed. The Cobra was placed underneath the minimus, with its tip on the anterior column of the acetabulum. We internally rotated the leg to put the short external rotators on stretch, and then detached them from their insertion on the posterior aspect of the greater trochanter, starting at the upper one third of the quadratus. The short external rotators and the capsule were elevated in one layer, angling approximately 30?? along the femoral necks proximally. The short external rotators and the capsule were tagged with two #2 Ethibond sutures. We preserved the labrum. We were able to visualize the displaced femoral neck fracture. Retractors were placed around the femoral neck and we freshened our femoral neck cut with an oscillating saw, starting on the medial calcar. We removed the femoral head from the acetabulum. Acetabular preparation: A bone hook was used to lift the greater trochanter. The interval between the labrum and the capsule in the anterior superior quadrant was elevated. A retractor was placed on the anterior column of the acetabulum in this position. This retracted the femur anteriorly, and care was taken not to place undue pressure on the greater trochanter. The plane between the labrum and the posterior capsule was developed posteriorly and a broad retractor was placed in the ischium. This gave us good exposure to the acetabulum. We removed the pulvinar are at the base of the acetabulum. A large curet was used to define the true floor of the acetabulum. The inferior capsule was partially released. The labrum was removed with aclamp and a long knife. We began reaming with an acetabular reamer 5 mm below our predicted cup size, and focused on medializing to the true floor of the acetabulum. We then reamed up in 2 mm increments, keeping the position of our anticipated cup, until we got good bleeding bone circumferentially andat the base of the cup with a size 47 reamer. We trialed the position of our acetabular cup in approximately 45?? of abduction and 20?? of anteversion. The trial was malleted into place and had good circumferential fit and position. We copiously irrigated and curetted any acetabular cysts. We opened our final acetabular implant, and impacted it in place, matching the abduction and anteversion of our trial. This had good fit and stability. We then placed 1 screw through the superior quadrant of the cup. These obtained good bite and sat flush in the cup. We removed osteophytes surrounding the cup with a curved osteotome. We placed the final acetabular liner. We impacted it into place and 2 or more splines were flush with the cup. We turned our attention to the femur. Femoral preparation: The leg was internally rotated and held perpendicular to the floor. Femoral elevators were used to expose the proximal femur. A rongeur and a Bovie were used to remove soft tissue in the piriformis fossa and then a box osteotome was used to create a lateral starting point for preparation of the femoral canal. T- handle reamer was used to locate the canal. We rasped laterally to avoid varus orientation. We started by using the femoral broaches. Starting with the smaller size broaches, we broached up in size, maintaining 15?? of anteversion, until the broach had adequate proximal fit and fill and good rotational control of the femur. We placed a trial neck and stem. We reduced the hip and checked range of motion and stability. The hip had excellent stability through a full range of motion and tolerated flexion and internal rotation without dislocation. There was no posterior impingement. There wasminimal shuck. We determined that we were happy with our trial implants. We dislocated the hip againand remove the trial implants. We copiously irrigated the femoral canal with pulsatile normal saline, then cleaned it with a high-speed rotating brush, then cleaned it with pulsatile normal saline again. A Ray-Jerson sponge was placed in the acetabular cup to collect extra cement. We placed a cement restrictor measured specifically to our final stem. We packed the femoral canal with a dry sponge while 2batches of cement were mixed on the back table. These were placed into a cement gun and the packing was removed from the femur. When the cement was ready for insertion the cement gun was used to fill the canal in a retrograde fashion. The cement was then pressurized. We removed overhanging cement. We then placed the final stem, slowly inserting it while maintaining our anteversion. It was seated with light mallet taps. Overhanging cement was removed with a [place]. We kept pressure off of the stem andneck while the cement was allowed to cure until hard in vivo. We removed any additional cement was prominent or overhanging. We placed our final femoral head on a dry trunnion, impacting it to engage the Genao taper. Hip was then relocated. Moved freely through full range of motion with minimal shuck and was very stable. Closure: We copiously irrigated the wound with dilute betadine and pulsatile normal saline. We placed a single stitch in the superior capsule with #2 Ethibond. We then placed 2 drill holes through the posterior aspect of the greater trochanter. We fed our posterior capsular and short external rotator sutures t hrough these holes and tied them with the hip in abduction. We then tied the superior stitch. We reapproximated the iliotibial band and closed it with #1 Vicryls. We irrigated again. We closed the deepsubcutaneous tissue with 0 Vicryls. We used a combination of 0 Vicryls and 2-0 Vicryl to close the deep dermal layer. We closed the skin with an absorbable monofilament. A Mepilex dressing was placed over the incision. The patient's anesthesia was reversed and the patient was discharged to the PACU instable condition. Surgical Infection Prevention Bundle Used? N/A Attestation: Case Date: 08/06/2021 I was present and I participated during the entire procedure (does not need to include opening and closing). DUSTY PETERSON MD 08/06/2021 Plan of Care - Kelsy Kearney RN - 08/06/2021 4:36 AM EDT OUTCOME EVALUATION NOTE: OUTCOME SUMMARY: Patient A&O x4. Patient's pain managed with PRN medications (see MAR). Patient had x1 episode ofnausea, IV Zofran given with good effect. Ice applied to R hip for additional comfort overnight. +dp& pt pulses, +csmt. Patient started on CIWA scale. Sherman catheter patent. NPO since arrival. VSS. Will continue to monitor and help patient reach d/c goals. PLAN MOVING FORWARD: Pain control NPO for OR D/c planning INDIVIDUALIZED FALL PREVENTION: Patient is currently a high risk to Fall. Patient educated on bed/chair alarm, demonstrates proper use of call magdaleno and verbalizes understanding of fall preventions implemented. Patient-specific fall risk factors per assessment: [current deficits]: Impaired mobility, Pain, Medications, Hospital Environment. Assistance [level of assistance required for transfers and ambulation]: Bedrest Supervision [direct monitoring required during toileting and ADLs]: Hands on with ADL's Surveillance [continuous indirect monitoring]: Bed alarm, Masimo, Purposeful Rounding, Nurse Knowledge Exchange Patient-specific fall prevention interventions for sensory deficits provided, if applicable: n/a CPG GOAL OUTCOME EVALUATION: Consult Note - Jose Valdes MD - 08/06/2021 3:27 AM EDT Images from the original note were not included. MEDICINE CONSULT NOTE Patient information: Name: Paradise Abel : 1960 PCP: FRANCE Chen PCP phone number: [phone] Date of Admission: 08/06/2021 ( Hospital Day 0 days ) Service: Medicine Responsible Attending:Trung Gorman MD ID: Paradise Abel is a pleasant 60 y.o. 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 Medicine was consulted for pre-operative assessment. Brief HPI: She was in her usual state of health until this yesterday (08/05) morning when she had a mechanical fall. She is moving into a new apartment in [facility] as she previously lived in a house with her who 2 months ago. She was walking in the apartment and tripped on a box falling onto her right hip. She immediately was in pain and dragged herself up to the chair. Her neighbor rushed over and they called EMS who took her to [facility]. She was found to have a femoral neck fracture and [facility] was contacted for transfer. She was most recently hospitalized here in June 2020 for acute hypoxic respiratory failure requiring ICU admission. At that time, decompensation thought to be acute on chronic in setting of end stage FOLEY 2/2 medication non- compliance due to financial reasons. She was placed on BiPAP and weaned to nasal cannula. She was placed back on sirolimus, started on a prolonged prednisone taper, and discharged with close pulmonology follow up. Last visit was a month ago and at that time she was started on prednisone (unclear dose) as her breathing was mildly worse. She takes albuterol (4-5 times per day) and BREZTRI (budesonide/glycopyrrolate/formoterol) two puffs bid. Notably, last admission she reported also drinking 1 bottle of wine daily and required phenobarbitol withdrawal protocol during hospitalization. Currently drinking every other day, a couple of glasses of wine. Last drink was 08/04. On arrival to [facility], her XANDER was 197. Also, her urine was positive for opiates but she denies any use. At this point in time, she feels to be at her baseline respiratory status. She is able to climb only3-4 steps without stopping, with the dyspnea being the main limiting factor. No chest pain with exertion. Most recent surgery was in her 20s - nephrectomy. Workup at OSH: WBC 17.9, Hb 12.4, PLT 287 Cr 0.6, BUN 30, K 3.4, Na 139, CO2 30.2 LFTs normal U/A negative UDS negative other than + opiates COVID negative. XR R hip revealed right femoral neck fracture. CT lumbar spine showed no fracture. CT head normal. CXR normal. CV workup prior: Non-diagnostic ECG stress in 2019 performed for dyspnea. Vitals: Last value Range last 24 hrs Temperature Temp: 36.8 ??C (98.2 ??F) Temp: [36.8 ??C (98.2 ??F)-36.9 ??C (98.4 ??F)] Heart Rate Heart Rate: 97 Heart Rate: [97] Blood Pressure BP: 135/71 BP: (135-137)/(71-73) Respiratory Rate Resp: 16 Resp: [16] SpO2 SpO2: 92 % SpO2: [92 %-97 %] Intake/Output Summary (Last 24 hours) at 08/06/2021326 Last data filed at 08/06/2021 0319 Gross per 24 hour Intake -- Output 125 ml Net -125 ml No data found. Admit wt: Physical Exam: Gen: Well appearing and in no acute distress. Neck: Neck veins flat. CV: Normal S1, S2. Regular rate and rhythm, no murmur, rub or gallop appreciated. Pulm: Clear to auscultation bilaterally, no wheezes or rhonchi. Barrel chest. Abd: Soft, non-tender and non-distended. No organomegaly appreciated. Ext: No edema. DP and PT pulses 2+ bilaterally. Skin: Warm, dry, no rashes or lesions. Neuro: CN II-XII grossly intact, no focal deficits. Medications: (per SureScripts) Vitamin C 1,000mg qd Furosemide 40mg po qd Metoprolol tartrate 25mg po bid Simvastatin 20mg po qhs Sirolimus 2mg po qd Duloxetine 60mg qd Trazodone 50mg qhs Buspar 5mg qam Labs / Microbiology: I have reviewed labs/microbiology from the recent past and if significant it is listed below: Reviewed above. Imaging: I have reviewed imaging from the recent past and if significant it is listed below: Reviewed above. Risk calculators: RCRI score 1 = 6% risk of CV event in 30 days. ASSESSMENT/PLAN: Paradise Abel is a pleasant 60 y.o. 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 Medicine was consulted for pre-operative assessment. Overall, she unfortunately had a mechanical fall at home resulting in a right femoral neck fracture.She has multiple medical comorbidities, most concerning being end-stage lymphangioleiomyomatosis. She was most recently seen by Pulmonology about 1 month ago according to the patient and they started her on prednisone. She is unclear the dose, but she was given a three month supply. Surescripts says 10mg qd. We need to clarify this dose and continue tomorrow. The most obvious surgical risk is from a respiratory standpoint, but she seems to be optimized and feeling as good as she usually does. She takes lasix daily and is currently euvolemic. From a medical standpoint, she appears to be optimized for the OR. Please monitor closely for alcohol withdrawal with CIWA scale. R femoral neck fracture -ortho plans OR this am -appears optimized for surgery with above average risk of most complications listed above -obtain baseline CBC, BMP, ECG Hx of lymphangioleiomyomatosis Chronic dyspnea requiring home O2 (3-4L) -start symbicort bid -duonebs q4h prn -we do not have aerosolized glycopyrrolate on formulary (I don't think) -sirolimus is associated with poor wound healing, but at this point should continue as usual - 2mg qd -continue prednisone 10mg qd Moderate alcohol use -last drink 08/04, XANDER 197 on 08/05 am -CIWA scale Hx of peripheral edema -continue lasix 40mg qd HTN -continue metoprolol tartrate 25mg po bid HLD -continue simvastatin 20mg po qhs MDD -continue duloxetine 60mg qd -continue trazodone 50mg qhs -continue buspar 5mg qam Case will be discussed with consult attending during morning rounds. Thank you for this consult. Jose Valdes MD Internal Medicine PGY3 Associated attestation - Yoshi Fajardo MD - 08/06/2021 4:54 PM EDT Attending Staff New Consult Documentation We have been asked to see this patient in consultation by Dr. Gorman from Orthopedics Please see Dr. Valdes's note for details of the patient history of presentation and data. I have discussed, reviewed and agree with the documented history with ROS, social and family history, medication list, physical findings, labs/studies, Assessment and Plan of care. I have examined the patient myself and reviewed all labs and studies personally. Additions to the history, physical, assessment and plan include the following: Agree with risk assessment below. S/p r JACKSON for FNFx today without issue on baseline O2 requirement 3L post op. Currently on prolonged steroid taper (and on steroids chronically in past) for her FOLEY (lymphangioleiomyomatosis) followed by her [employer]ovolta[employer] Testing Technician Dr. Arce at [facility], and this warrants evaluation of vit D level (25-OH) as most likely a component of osteopenia/osteoporosis. Would benefit Ca(1000 BID) and Vit D supplementation (e.g. D3 1200 U daily) and consider endocrine f/u at d/c. If develops respiratory issues during admission would have low threshold to engage Pulm. Remainder as below, we will continue to follow with you. YOSHI FAJARDO MD Plan of Care - Kelsy Kearney RN - 08/06/2021 1:06 AM EDT Patient arrived to floor from OSH. Patient A&O x 4 lungs clear, heart rate regular. Patient states their last BM was on 08/05. Patient R hip fx, ice applied for comfort. Patient has an IV in to their RUE. Patient states their pain level is 10/10. Patient denies chest pain, shortness of breath, numbness or tingling. Patient oriented to room, call magdaleno, IS. RN will monitor patient. documented in this encounter Plan of Treatment Scheduled Orders Name Type Priority Associated Diagnoses Order S chedule EKG 12 Lead ECG STAT Chronic respiratory failure One Time for 1 Occurrences with hypoxia starting 2021 until 08/06/2021 Scheduled Referrals Name Type Priority Associated Order Schedule Diagnoses Referral to Outpatient Referral Routine Closed fracture of Or dered: Endocrinology right hip, initial 08/10/19 22 encounter documented as of this encounter Procedures Procedure Name Priority Date/Time Associated Comments Diagnosis BLOOD GAS VENOUS ([facility]) Timed 08/14/2021 5:32 AM Results for this EDT procedure are i n the results section. HEMOGRAM Routine 08/14/2021 3:39 AM Results f or this EDT procedure are i n the results section. DIFFERENTIAL, AUTOMATED Routine 08/14/2021 3:39 AM Results for this EDT procedure are i n the results section. HC CBC,PLT & AUTO DIFF Routine 08/14/2021 3:39 AM EDT BASIC METABOLIC PANEL Routine 08/14/2021 3:39 AM Results for this (NON-FASTING) EDT procedure are in the results section. BLOOD GAS VENOUS ([facility]) STAT 08/13/2021 1:59 PM Results for this EDT procedure are i n the results section. BLOOD GAS VENOUS ([facility]) STAT 08/13/2021 10:30 R esults for this AM EDT procedure are i n the results section. SCAN, PERIPHERAL BLOOD Routine 08/13/2021 3:45 AM Results for this EDT procedure are i n the results section. HEMOGRAM Routine 08/13/2021 3:45 AM Results f or this EDT procedure are i n the results section. DIFFERENTIAL, AUTOMATED Routine 08/13/2021 3:45 AM Results for this EDT procedure are i n the results section. HC CBC,PLT & AUTO DIFF Routine 08/13/2021 3:45 AM EDT PHOSPHORUS Routine 08/13/2021 3:45 AM Results f or this EDT procedure are i n the results section. BASIC METABOLIC PANEL Routine 08/13/2021 3:45 AM Results for this (NON-FASTING) EDT procedure are in the results section. HEMOGRAM Routine 08/12/2021 9:40 AM Results f or this EDT procedure are i n the results section. DIFFERENTIAL, AUTOMATED Routine 08/12/2021 9:40 AM Results for this EDT procedure are i n the results section. IRON AND TIBC Routine 08/12/2021 9:40 AM Results for this EDT procedure are i n the results section. HC CBC,PLT & AUTO DIFF Routine 08/12/2021 9:40 AM EDT HC VENIPUNCTURE Routine 08/12/2021 9:40 AM Result s for this EDT procedure are i n the results section. HC VENIPUNCTURE Routine 08/11/2021 6:10 PM Result s for this EDT procedure are i n the results section. HC PHOSPHORUS, SERUM Routine 08/11/2021 8:24 AM R esults for this EDT procedure are i n the results section. HC VENIPUNCTURE Routine 08/11/2021 8:24 AM Result s for this EDT procedure are i n the results section. HEMOGRAM Routine 08/10/2021 6:25 AM Results f or this EDT procedure are i n the results section. DIFFERENTIAL, AUTOMATED Routine 08/10/2021 6:25 AM Results for this EDT procedure are i n the results section. HC CBC,PLT & AUTO DIFF Routine 08/10/2021 6:25 AM EDT HC PHOSPHORUS, SERUM Routine 08/10/2021 6:25 AM R esults for this EDT procedure are i n the results section. HC VENIPUNCTURE Routine 08/10/2021 6:25 AM Result s for this EDT procedure are i n the results section. HC VENIPUNCTURE Routine 08/09/2021 5:13 PM Result s for this EDT procedure are i n the results section. XR CHEST PA AND LATERAL Routine 08/09/2021 1:26 PM Results for this EDT procedure are i n the results section. HEMOGRAM Routine 08/09/2021 8:22 AM Results f or this EDT procedure are i n the results section. DIFFERENTIAL, AUTOMATED Routine 08/09/2021 8:22 AM Results for this EDT procedure are i n the results section. HC CBC,PLT & AUTO DIFF Routine 08/09/2021 8:22 AM EDT HC PHOSPHORUS, SERUM Routine 08/09/2021 8:22 AM R esults for this EDT procedure are i n the results section. HC MAGNESIUM, SERUM Routine 08/09/2021 8:22 AM Re sults for this EDT procedure are i n the results section. BASIC METABOLIC PANEL Routine 08/09/2021 8:22 AM Results for this (NON-FASTING) EDT procedure are in the results section. HEMOGRAM Routine 08/08/2021 9:21 AM Results f or this EDT procedure are i n the results section. DIFFERENTIAL, AUTOMATED Routine 08/08/2021 9:21 AM Results for this EDT procedure are i n the results section. HC CBC,PLT & AUTO DIFF Routine 08/08/2021 9:21 AM EDT HC VENIPUNCTURE Routine 08/08/2021 9:21 AM Result s for this EDT procedure are i n the results section. SCAN, PERIPHERAL BLOOD Routine 08/07/2021 3:42 AM Results for this EDT procedure are i n the results section. HEMOGRAM Routine 08/07/2021 3:42 AM Results f or this EDT procedure are i n the results section. DIFFERENTIAL, AUTOMATED Routine 08/07/2021 3:42 AM Results for this EDT procedure are i n the results section. HC CBC,PLT & AUTO DIFF Routine 08/07/2021 3:42 AM EDT MAGNESIUM Routine 08/07/2021 3:42 AM Results f or this EDT procedure are i n the results section. BASIC METABOLIC PANEL Routine 08/07/2021 3:42 AM Results for this (NON-FASTING) EDT procedure are in the results section. XR PELVIS Routine 08/06/2021 11:47 Results for this AM EDT procedure are i n the results section. SURGICAL PATHOLOGY Routine 08/06/2021 9:41 AM Res ults for this REPORT EDT procedure are i n the results section. SPECIMEN TO PATHOLOGY Routine 08/06/2021 9:41 AM Results for this EDT procedure are i n the results section. MODIFIER,QUADRA C 08/06/2021 8:41 AM Right femoral nec k (CEMENTED) TAMELA HIP EDT fracture STEM,MEDACTA TOTAL HIP ARTHROPLASTY 08/06/2021 8:41 AM Right femora l neck - POSTERIOR (WRVU EDT fracture 20.72) TOTAL HIP ARTHROPLASTY Routine 08/06/2021 8:24 AM - POSTERIOR EDT TYPE AND SCREEN Routine 08/06/2021 3:54 AM Result s for this VALIDITY EDT procedure are i n the results section. ABORH RECHECK STATUS Routine 08/06/2021 3:54 AM R esults for this EDT procedure are i n the results section. HEMOGRAM STAT 08/06/2021 3:54 AM Results f or this EDT procedure are i n the results section. DIFFERENTIAL, AUTOMATED STAT 08/06/2021 3:54 AM Results for this EDT procedure are i n the results section. ABO/RH TYPING Routine 08/06/2021 3:54 AM Results for this EDT procedure are i n the results section. HC PARTIAL Routine 08/06/2021 3:54 AM Results f or this THROMBOPLASTIN TIME EDT procedur e are in the results section. HC PROTHROMBIN TIME Routine 08/06/2021 3:54 AM Re sults for this EDT procedure are i n the results section. HC CBC,PLT & AUTO DIFF STAT 08/06/2021 3:54 AM EDT ANTIBODY SCREEN Routine 08/06/2021 3:54 AM Result s for this EDT procedure are i n the results section. HC ANTIBODY Routine 08/06/2021 3:54 AM DETECTION,CAPTURE-R EDT HC PHOSPHORUS, SERUM Routine 08/06/2021 3:54 AM R esults for this EDT procedure are i n the results section. HC MAGNESIUM, SERUM Routine 08/06/2021 3:54 AM Re sults for this EDT procedure are i n the results section. BASIC METABOLIC PANEL STAT 08/06/2021 3:54 AM Results for this (NON-FASTING) EDT procedure are in the results section. RAPID COVID-19 PCR Routine 08/06/2021 3:00 AM Res ults for this ([facility]/APD/[facility]) EDT procedure are in the results section. IMPLANTABLE DEVICES 08/06/2021 12:00 SCAN AM EDT documented in this encounter Results XR Pelvis [...] who have questions please contact the health childcare center director that requested your imaging first. ? Electronically signed by: Indu Fortune MD, [facility] ([phone]), at 09/04/2021 1:55 PM Narrative 09/04/2021 1:55 PM EDT EXAMINATION: XR [...] ho have questions please contact the health childcare center director that requested your imaging first. Electronically signed by: Indu Fortune MD, [facility] ([phone]), at 09/04/2021 1:55 PM Trung Gorman MD IMG DX ORDERABLES (ABNORMAL) Blood Gas Venous (08/14/2021 5:32 AM EDT) athologist Signature pH Merritt 7.36 7.32 - [facility] 7.42 [facility] pCO2 Merritt 66 41 - 51 [facility] (Critical) mmHg [facility] Comment: Called by: john, Read back by: Shaye Bynum, Date/Time:08/14/21 05:57. pO2 Merritt 43 (H) 25 - 40 mmHg [facility] HCO3 Merritt 36.6 mmol/L [facility] BE Merritt 11.1 mmol/L [facility] Hgb Blood Gas 8.8 (L) 11.7 - 15.5 g/dL [facility] O2HB Merritt 77.1 % [facility] COHB Merritt 0.3 % [facility] Comment: Nonsmokers: 0.5-1.5% COHB Smokers: Variable, but usually less than 10% Toxic: 20-30% COHB Lethal: Greater than 60% COHB METHB Merritt 0.3 <=1.5 % [facility] Na Whole Blood 137 135 - 145 mmol/L [facility] K Whole Blood 3.8 3.5 - 5.0 mmol/L [facility] Comment: Please note: Patients with WBC >100,000 may have falsely elevated Potassium levels. Contact the Clinical Chemistry L aboratory if there are any questions. ICa Whole Blood 1.27 1.15 - 1.33 mmol/L [facility] Comment: Note: ??Total bilirubin higher than 20 m g/dL may lead to falsely low ionized calcium. CL Whole Blood 96 (L) 98 - 107 mmol/L [facility] Gluc Whole Bld 68 65 - 199 mg/dL [facility] Comment: Diabetes: >=200 mg/dL plus symp toms Lactate WB 1.2 0.5 - 2.2 mmol/L [facility] BGas Source Venous [facility] Specimen Anatomical Collection Method Collection Time Receive d Time (Source) Location / / Volume Laterality Blood Venous Draw / 08/14/2021 5:32 AM 08/15/19 5:52 Unknown EDT AM EDT Resulting Agency Comment Spec In Lab Zee Madden MD CHEMISTRY ORDERABLES Performing Organization Address City/State/[place] [address] (ABNORMAL) Differential, Automated (08/14/2021 3:39 AM EDT) [facility] Method Time Signature Neutrophils % 70.4 % [facility] Neutr Abs (ANC) 6.45 (H) 1.70 - [facility] 6.10 [facility] x10(3)/[facility] LABORATORY Lymphocytes % 12.8 % [facility] Lymphocytes Abs 1.2 0.9 - 3.2 [facility] x10(3)/[facility] LABORATORY Monocytes % 12.5 % [facility] Monocyte Abs 1.1 (H) 0.3 - 0.9 [facility] x10(3)/[facility] LABORATORY Eosinophils % 2.0 % [facility] Eosinophils Abs 0.2 0.0 - 0.4 [facility] x10(3)/[facility] LABORATORY Basophils % 0.7 % [facility] Basophils Abs 0.1 0.0 - 0.1 [facility] x10(3)/[facility] LABORATORY Immature Gran % 1.60 % [facility] Comment: Immature granulocytes(IG's)percentage an d absolute count will include metamyelocytes, myelocytes, and promyelo cytes. Blood smears from CBCs yielding IG's will be scanned manually for concor dance. If this scan disagrees with the automated IG or if promyelocytes are not ed, a manual differential will be performed. Zenaida Gran Abs 0.15 (H) 0.00 - 0.04 x10(3)/[facility] LABORATORY Specimen Anatomical Collection Method Collection Time Receive d Time (Source) Location / / Volume Laterality Blood 08/14/2021 3:39 AM 2 4:25 EDT AM EDT Resulting Agency Comment Spec In Lab Jenise David MD HEMATOLOGY ORDERABLES Performing Organization Address City/State/[place] [address] (ABNORMAL) Hemogram (08/14/2021 3:39 AM EDT) [facility] gist Method Time Signature WBC 9.2 4.0 - 9.5 [facility](3[facility]ATORY RBC 2.71 (L) 4.00 [facility] x10(6)/[facility] LABORATORY Hemoglobin 9.1 (L) 11.7 - [facility] 15.5 g/dL [facility] Hematocrit 29.6 (L) 35.7 - [facility] 45.8 % [facility] MCV 109.2 (H) 82.6 - [facility] 94.4 [facility]ORY MCH 33.6 (H) 27.1 - [facility] 32.0 pg [facility] MCHC 30.7 (L) 31.7 - [facility] g/dL [facility] Platelets 490 (H) 145 - 357 [facility] x10(3)/[facility] LABORATORY RDWSD 55.6 (H) 37.0 - [facility] 46.0 [facility] LABORATORY RDWCV 14.1 11.5 - [facility] 14.1 % [facility] MPV 10.5 7.6 - 12.9 [facility] LABORATORY nRBC % Auto 0.0 % [facility] nRBC Abs Auto 0.000 0.000 - [facility] 0.000 [facility] x10(3)/[facility] LABORATORY Specimen Anatomical Collection Method Collection Time Receive d Time (Source) Location / / Volume Laterality Blood 08/14/2021 3:39 AM 2 4:25 EDT AM EDT Resulting Agency Comment Spec In Lab Jenise David MD HEMATOLOGY ORDERABLES Performing Organization Address City/State/[place] [address] (ABNORMAL) Basic Metabolic Panel (non-fasting) (08/14/2021 3:39 AM EDT) P athologist Signature Glucose Lvl 96 65 - 199 [facility] mg/dL [facility] Comment: Diabetes: >=200 mg/dL plus symp toms BUN 12 8 - 18 mg/dL [facility] Creatinine 0.59 (L) 0.70 - 1.20 mg/dL [facility] Sodium 142 135 - 145 mmol/L [facility] Potassium 4.5 3.5 - 5.0 mmol/L [facility] Comment: Please note: ??Patients with WBC >100,00 0 may have falsely elevated Potassium levels. ??For accurate Potassium quantif ication in these patients send serum separator tube (gold top) for subsequent determinations. ??Contact the Clinical Chemistry Laboratory if there are any qu estions. Chloride 96 (L) 98 - 107 mmol/L [facility] CO2 34 (H) 22 - 31 mmol/L [facility] Anion Gap 12 5 - 15 mmol/L [facility] Calcium 9.7 8.5 - 10.5 mg/dL [facility] Estimated GFR 100 >=60 mL/min/1.73 m?? [facility] Comment: This patient? s estimated glomerular filtration rate (eGFR) is between 100 mL/min/1.73 m2 (patients with less muscl e mass) and 115 mL/min/1.73 m2 (patients with more muscle mass) as dete rmined by the CKD-EPI equation. Assessment of eGFR is not appropriate wh en creatinine concentrations are rapidly changing. For clinical decisions where creatinine clearance will affect therapy, a 24-hour urine creatinine kay mariel may be advised. Assignment of CKD stage 1 - 5 for patien ts with an eGFR near the transition point between stages may be based on cli nical assessment of muscle mass and symptoms in addition to eGFR. Specimen Anatomical Collection Method Collection Time Receive d Time (Source) Location / / Volume Laterality Blood 08/14/2021 3:39 AM 4:25 EDT AM EDT Resulting Agency Comment Spec In Lab Jenise David MD CHEMISTRY ORDERABLES Performing Organization Address City/State/[place] [address] (ABNORMAL) Blood Gas Venous (08/13/2021 1:59 PM EDT) athologist Signature pH Merritt 7.33 7.32 - [facility] 7.42 [facility] pCO2 Merr[place] 82 41 - 51 [facility] (Critical) mmHg [facility] Comment: Called by: MELANIE, Read back by: Shaye Plummer, Date/Time:08/13/21 14:14. pO2 Merritt 20 (L) 25 - 40 mmHg [facility] HCO3 [place] 42.7 mmol/L [facility] BE Merritt 16.8 mmol/L [facility] Hgb Blood Gas 10.5 (L) 11.7 - 15.5 g/dL [facility] O2HB Merritt 28.7 % [facility] COHB Merritt 0.0 % [facility] Comment: Nonsmokers: 0.5-1.5% COHB Smokers: Variable, but usually less than 10% Toxic: 20-30% COHB Lethal: Greater than 60% COHB METHB Merritt 0.2 <=1.5 % [facility] Na Whole Blood 136 135 - 145 mmol/L [facility] K Whole Blood 4.1 3.5 - 5.0 mmol/L [facility] Comment: Please note: Patients with WBC >100,000 may have falsely elevated Potassium levels. Contact the Clinical Chemistry L aboratory if there are any questions. ICa Whole Blood 1.29 1.15 - 1.33 mmol/L [facility] Comment: Note: ??Total bilirubin higher than 20 m g/dL may lead to falsely low ionized calcium. CL Whole Blood 91 (L) 98 - 107 mmol/L [facility] Gluc Whole Bld 95 65 - 199 mg/dL [facility] Comment: Diabetes: >=200 mg/dL plus symp toms Lactate WB 1.5 0.5 - 2.2 mmol/L [facility] BGas Source Venous [facility] Specimen Anatomical Collection Method Collection Time Receive d Time (Source) Location / / Volume Laterality Blood Venous Draw / 08/13/2021 1:59 PM 08/14/19 2:07 Unknown EDT PM EDT Resulting Agency Comment Spec In Lab Jenise David MD CHEMISTRY ORDERABLES Performing Organization Address City/State/[place] [address] (ABNORMAL) Blood Gas Venous (08/13/2021 10:30 AM EDT) P athologist Signature pH Merritt 7.33 7.32 - [facility] 7.42 [facility] pCO2 Merritt 75 41 - 51 [facility] (Critical) mmHg [facility] Comment: Called by: ailyn, Read back by: sherry barney, Date/Time:08/13/21 10:53. pO2 Merritt 36 25 - 40 mmHg [facility] HCO3 [place] 38.7 mmol/L [facility] BE Merritt 12.7 mmol/L [facility] Hgb Blood Gas 9.6 (L) 11.7 - 15.5 g/dL [facility] O2HB Merritt 64.6 % [facility] COHB Merritt 0.4 % [facility] Comment: Nonsmokers: 0.5-1.5% COHB Smokers: Variable, but usually less than 10% Toxic: 20-30% COHB Lethal: Greater than 60% COHB METHB [place]itt 0.3 <=1.5 % [facility] Na Whole Blood 136 135 - 145 mmol/L [facility] K Whole Blood 3.6 3.5 - 5.0 mmol/L [facility] Comment: Please note: Patients with WBC >100,000 may have falsely elevated Potassium levels. Contact the Clinical Chemistry L aboratory if there are any questions. ICa Whole Blood 1.22 1.15 - 1.33 mmol/L [facility] Comment: Note: ??Total bilirubin higher than 20 m g/dL may lead to falsely low ionized calcium. CL Whole Blood 95 (L) 98 - 107 mmol/L [facility] Gluc Whole Bld 92 65 - 199 mg/dL [facility] Comment: Diabetes: >=200 mg/dL plus symp toms Lactate WB 1.3 0.5 - 2.2 mmol/L [facility] BGas Source Venous [facility] Specimen Anatomical Collection Method Collection Time Receive d Time (Source) Location / / Volume Laterality Blood Venous Draw / 08/13/2021 10:30 08/13/2021 Unknown AM EDT 10:38 AM EDT Resulting Agency Comment Spec In Lab Jenise David MD CHEMISTRY ORDERABLES Performing Organization Address City/State/ZIP Code Phon e Number [address] Phosphorus (08/13/2021 3:45 AM EDT) P athologist Signature Phosphorus 3.9 2.5 - 4.5 [facility] mg/dL [facility] Specimen Anatomical Collection Method Collection Time Receive d Time (Source) Location / / Volume Laterality Blood Venous Draw / 08/13/2021 3:45 AM 08/14/19 3:56 Unknown EDT AM EDT Resulting Agency Comment Spec In Lab Jenise David MD CHEMISTRY ORDERABLES Performing Organization Address City/State/ZIP Code Phon e Number [address] Scan, Peripheral Blood (08/13/2021 3:45 AM EDT) Patholo gist Method Time Signature Plat Estimate Increased [facility] RBC Morphology Abnormal [facility] Polychromasia Present >5/HPF [facility] Specimen Anatomical Collection Method Collection Time Receive d Time (Source) Location / / Volume Laterality Blood 08/13/2021 3:45 AM 2 3:55 EDT AM EDT Resulting Agency Comment Spec In Lab Jenise David MD HEMATOLOGY ORDERABLES Performing Organization Address City/State/[place] [address] (ABNORMAL) Differential, Automated (08/13/2021 3:45 AM EDT) [facility] Method Time Signature Neutrophils % 61.4 % [facility] Neutr Abs (ANC) 5.57 1.70 - [facility] 6.10 [facility] x10(3)/[facility] LABORATORY Lymphocytes % 16.2 % [facility] Lymphocytes Abs 1.5 0.9 - 3.2 [facility] x10(3)/[facility] LABORATORY Monocytes % 17.8 % [facility] Monocyte Abs 1.6 (H) 0.3 - 0.9 [facility] x10(3)/[facility] LABORATORY Eosinophils % 2.9 % [facility] Eosinophils Abs 0.3 0.0 - 0.4 [facility] x10(3)/[facility] LABORATORY Basophils % 0.4 % [facility] Basophils Abs 0.0 0.0 - 0.1 [facility] x10(3)/[facility] LABORATORY Immature Gran % 1.30 % [facility] Comment: Immature granulocytes(IG's)percentage an d absolute count will include metamyelocytes, myelocytes, and promyelo cytes. Blood smears from CBCs yielding IG's will be scanned manually for concor dance. If this scan disagrees with the automated IG or if promyelocytes are not ed, a manual differential will be performed. Zenaida Gran Abs 0.12 (H) 0.00 - 0.04 x10(3)/[facility] LABORATORY Specimen Anatomical Collection Method Collection Time Receive d Time (Source) Location / / Volume Laterality Blood 08/13/2021 3:45 AM 2 3:55 EDT AM EDT Resulting Agency Comment Spec In Lab Jenise David MD HEMATOLOGY ORDERABLES Performing Organization Address City/State/[place] [address] (ABNORMAL) Hemogram (08/13/2021 3:45 AM EDT) [facility] Method Time Signature WBC 9.1 4.0 - 9.5 [facility] LABORATORY RBC 2.76 (L) 4.00 - [facility] 5.21 [facility] x10(6)/[facility] LABORATORY Hemoglobin 9.3 (L) 11.7 - [facility] 15.5 g/dL [facility] Hematocrit 29.6 (L) 35.7 - [facility] 45.8 % [facility] MCV 107.2 (H) 82.6 - [facility] 94.4 [facility]ATORY MCH 33.7 (H) 27.1 - [facility] 32.0 pg [facility] [facility] MCHC 31.4 (L) 31.7 - [facility] 35.0 g/dL [facility] Platelets 491 (H) 145 - 357 [facility] x10(3)/[facility] LABORATORY RDWSD 55.7 (H) 37.0 - [facility] 46.0 [facility] LABORATORY RDWCV 14.1 11.5 - [facility] 14.1 % [facility] MPV 10.1 7.6 - 12.9 [facility] LABORATORY nRBC % Auto 0.0 % [facility] nRBC Abs Auto 0.000 0.000 - [facility] x10(3)/[facility] LABORATORY Specimen Anatomical Collection Method Collection Time Receive d Time (Source) Location / / Volume Laterality Blood 08/13/2021 3:45 AM 3:55 EDT AM EDT Resulting Agency Comment Spec In Lab Jenise David MD HEMATOLOGY ORDERABLES Performing Organization Address City/State/ZIP Code Phon e Number [place] [id number] [facility] LAB[address] Drive (ABNORMAL) Basic Metabolic Panel (non-fasting) (08/13/2021 3:45 AM EDT) P athologist Signature Glucose Lvl 95 65 - 199 [facility] mg/dL [facility] [facility] Comment: Diabetes: >=200 mg/dL plus symp toms BUN 14 8 - 18 mg/dL [facility] Creatinine 0.52 (L) 0.70 - 1.20 mg/dL [facility] Sodium 139 135 - 145 mmol/L [facility] Potassium 4.4 3.5 - 5.0 mmol/L [facility] Comment: Please note: ??Patients with WBC >100,00 0 may have falsely elevated Potassium levels. ??For accurate Potassium quantif ication in these patients send serum separator tube (gold top) for subsequent determinations. ??Contact the Clinical Chemistry Laboratory if there are any qu estions. Chloride 92 (L) 98 - 107 mmol/L [facility] CO2 39 (H) 22 - 31 mmol/L [facility] Anion Gap 8 5 - 15 mmol/L [facility] Calcium 10.0 8.5 - 10.5 mg/dL [facility] Estimated GFR 104 >=60 mL/min/1.73 m?? [facility] Comment: This patient? s estimated glomerular filtration rate (eGFR) is between 104 mL/min/1.73 m2 (patients with less muscl e mass) and 120 mL/min/1.73 m2 (patients with more muscle mass) as dete rmined by the CKD-EPI equation. Assessment of eGFR is not appropriate wh en creatinine concentrations are rapidly changing. For clinical decisions where creatinine clearance will affect therapy, a 24-hour urine creatinine kay mariel may be advised. Assignment of CKD stage 1 - 5 for patien ts with an eGFR near the transition point between stages may be based on cli nical assessment of muscle mass and symptoms in addition to eGFR. Specimen Anatomical Collection Method Collection Time Receive d Time (Source) Location / / Volume Laterality Blood 08/13/2021 3:45 AM 3:55 EDT AM EDT Resulting Agency Comment Spec In Lab Jenise David MD CHEMISTRY ORDERABLES Performing Organization Address City/State/[place] [address] (ABNORMAL) Iron and TIBC (08/12/2021 9:40 AM EDT) Analysis Performed At Patho logist Time Signature Iron 32 30 - 150 [facility] mcg/dL [place] [facility] TIBC 168 (L) 250 - 450 [facility] mcg/dL [place] [facility] Iron Saturation 19 (L) 20 - 50 % [facility] Specimen Anatomical Collection Method Collection Time Receive d Time (Source) Location / / Volume Laterality Blood Venous Draw / 08/12/2021 9:40 AM 08/13/19 22 9:57 Unknown EDT AM EDT Resulting Agency Comment Spec In Lab Jenise David MD CHEMISTRY ORDERABLES Performing Organization Address City/[facility]/[place] [address] (ABNORMAL) Differential, Automated (08/12/2021 9:40 AM EDT) Patholo gist Method Time Signature Neutrophils % 73.7 % [facility] Neutr Abs (ANC) 7.12 (H) 1.70 - [facility] 6.10 [facility] x10(3)/[facility] LABORATORY Lymphocytes % 12.1 % [facility] Lymphocytes Abs 1.2 0.9 - 3.2 [facility] x10(3)/[facility] LABORATORY Monocytes % 10.4 % [facility] Monocyte Abs 1.0 (H) 0.3 - 0.9 [facility] x10(3)/[facility] LABORATORY Eosinophils % 2.4 % [facility] Eosinophils Abs 0.2 0.0 - 0.4 [facility] x10(3)/[facility] LABORATORY Basophils % 0.4 % [facility] Basophils Abs 0.0 0.0 - 0.1 [facility] x10(3)/[facility] [facility] LABORATORY Immature Gran % 1.00 % [facility] LABORATORY Comment: Immature granulocytes(IG's)percentage an d absolute count will include metamyelocytes, myelocytes, and promyelo cytes. Blood smears from CBCs yielding IG's will be scanned manually for nydia siegel. If this scan disagrees with the automated IG or if promyelocytes are not ed, a manual differential will be performed. Zenaida Gran Abs 0.10 (H) 0.00 - 0.04 x10(3)/[facility] LABORATORY Specimen Anatomical Collection Method Collection Time Receive d Time (Source) Location / / Volume Laterality Blood 08/12/2021 9:40 AM 9:56 EDT AM EDT Resulting Agency Comment Spec In Lab Jenise David MD HEMATOLOGY ORDERABLES Performing Organization Address City/State/[place] [address] (ABNORMAL) Hemogram (08/12/2021 9:40 AM EDT) [facility] gist Method Time Signature WBC 9.7 (H) 4.0 - 9.5 [facility] x10(3)/[facility] LABORATORY RBC 2.82 (L) 4.00 - [facility] 5.21 [facility] x10(6)/[facility] LABORATORY Hemoglobin 9.6 (L) 11.7 - [facility] 15.5 g/dL [place] [facility] Hematocrit 29.4 (L) 35.7 - [facility] 45.8 % [place] [facility] MCV 104.3 (H) 82.6 - [facility] 94.4 [facility] LABORATORY MCH 34.0 (H) 27.1 - [facility] 32.0 pg [place] [facility] MCHC 32.7 31.7 - [facility] 35.0 g/dL [place] [facility] Platelets 462 (H) 145 - 357 [facility] x10(3)/[facility] LABORATORY RDWSD 53.1 (H) 37.0 - [facility] 46.0 [facility] LABORATORY RDWCV 13.9 11.5 - [facility] 14.1 % [place] [facility] MPV 10.2 7.6 - 12.9 [facility] LABORATORY nRBC % Auto 0.0 % [facility] LABORATORY nRBC Abs Auto 0.000 0.000 - [facility] 0.000 [facility] x10(3)/[facility] LABORATORY Specimen Anatomical Collection Method Collection Time Receive d Time (Source) Location / / Volume Laterality Blood 08/12/2021 9:40 AM 9:56 EDT AM EDT Resulting Agency Comment Spec In Lab Jenise David MD HEMATOLOGY ORDERABLES Performing Organization Address City/State/[place] [address] (ABNORMAL) Basic Metabolic Panel (non-fasting) (08/12/2021 9:40 AM EDT) athologist Signature Glucose Lvl 185 65 - 199 [facility] mg/dL [place] [facility] Comment: Diabetes: >=200 mg/dL plus symp toms BUN 12 8 - 18 mg/dL [facility] LABORATORY Comment: result rechecked-red Creatinine 0.56 (L) 0.70 - 1.20 mg/dL [facility] LABORATORY Sodium 137 135 - 145 mmol/L [facility] LABORATORY Potassium 3.6 3.5 - 5.0 mmol/L [facility] LABORATORY Comment: Please note: ??Patients with WBC >100,00 0 may have falsely elevated Potassium levels. ??For accurate Potassium quantif ication in these patients send serum separator tube (gold top) for subsequent determinations. ??Contact the Clinical Chemistry Laboratory if there are any qu estions. Chloride 93 (L) 98 - 107 mmol/L [facility] LABORATORY CO2 34 (H) 22 - 31 mmol/L [facility] LABORATORY Anion Gap 10 5 - 15 mmol/L [facility] LABORATORY Calcium 9.5 8.5 - 10.5 mg/dL [facility] LABORATORY Estimated GFR 101 >=60 mL/min/1.73 m?? [facility] LABORAT[facility] Comment: This patient? s estimated glomerular filtration rate (eGFR) is between 101 mL/min/1.73 m2 (patients with less muscl e mass) and 117 mL/min/1.73 m2 (patients with more muscle mass) as dete rmined by the CKD-EPI equation. Assessment of eGFR is not appropriate wh en creatinine concentrations are rapidly changing. For clinical decisions where creatinine clearance will affect therapy, a 24-hour urine creatinine kay mariel may be advised. Assignment of CKD stage 1 - 5 for patien ts with an eGFR near the transition point between stages may be based on cli nical assessment of muscle mass and symptoms in addition to eGFR. Specimen Anatomical Collection Method Collection Time Receive d Time (Source) Location / / Volume Laterality Blood 08/12/2021 9:40 AM 2 9:56 EDT AM EDT Resulting Agency Comment Spec In Lab Jenise David MD CHEMISTRY ORDERABLES Performing Organization Address City/[facility]/ZIP [facility] Phon e Number [address] (ABNORMAL) Phosphorus (08/11/2021 6:10 PM EDT) P athologist Signature Phosphorus 4.6 (H) 2.5 - 4.5 [facility] [place] [facility] Specimen Anatomical Collection Method Collection Time Receive d Time (Source) Location / / Volume Laterality Blood 08/11/2021 6:10 PM 2 6:31 EDT PM EDT Resulting Agency Comment Spec In Lab Trung Gorman MD CHEMISTRY ORDERABLES Performing Organization Address City/[facility]/[place] [address] Phosphorus (08/11/2021 8:24 AM EDT) P athologist Signature Phosphorus 2.6 2.5 - 4.5 [facility] [place] [facility] Specimen Anatomical Collection Method Collection Time Receive d Time (Source) Location / / Volume Laterality Blood 08/11/2021 8:24 AM 2 8:35 EDT AM EDT Resulting Agency Comment Spec In Lab Cheri Perdue MD CHEMISTRY ORDERABLES Performing Organization Address City/State/ZIP [facility] [place] [address] (ABNORMAL) Basic Metabolic Panel (non-fasting) (08/11/2021 8:24 AM EDT) P athologist Signature Glucose Lvl 117 65 - 199 [facility] mg/dL [place] [facility] Comment: Diabetes: >=200 mg/dL plus symp toms BUN 7 (L) 8 - 18 mg/dL [facility] LABORATORY Creatinine 0.38 (L) 0.70 - 1.20 mg/dL [facility] LABORATORY Sodium 136 135 - 145 mmol/L [facility] LABORATORY Potassium 3.6 3.5 - 5.0 mmol/L [facility] LABORATORY Comment: Please note: ??Patients with WBC >100,00 0 may have falsely elevated Potassium levels. ??For accurate Potassium quantif ication in these patients send serum separator tube (gold top) for subsequent determinations. ??Contact the Clinical Chemistry Laboratory if there are any qu estions. Chloride 94 (L) 98 - 107 mmol/L [facility] LABORATORY CO2 34 (H) 22 - 31 mmol/L [facility] LABORATORY Anion Gap 8 5 - 15 mmol/L [facility] LABORATORY Calcium 9.1 8.5 - 10.5 mg/dL [facility] LABORATORY Estimated GFR 115 >=60 mL/min/1.73 m?? [facility] LABORAT[facility] Comment: This patient? s estimated glomerular filtration rate (eGFR) is between 115 mL/min/1.73 m2 (patients with less muscl e mass) and 133 mL/min/1.73 m2 (patients with more muscle mass) as dete rmined by the CKD-EPI equation. Assessment of eGFR is not appropriate wh en creatinine concentrations are rapidly changing. For clinical decisions where creatinine clearance will affect therapy, a 24-hour urine creatinine kay mariel may be advised. Assignment of CKD stage 1 - 5 for patien ts with an eGFR near the transition point between stages may be based on cli nical assessment of muscle mass and symptoms in addition to eGFR. Specimen Anatomical Collection Method Collection Time Receive d Time (Source) Location / / Volume Laterality Blood 08/11/2021 8:24 AM 8:35 EDT AM EDT Resulting Agency Comment Spec In Lab Cheri Perdue MD CHEMISTRY ORDERABLES Performing Organization Address City/State/ZIP Code Phon e Number [address] (ABNORMAL) Phosphorus (08/10/2021 6:25 AM EDT) athologist Signature Phosphorus 1.6 (L) 2.5 - 4.5 [facility] mg/dL [place] [facility] Specimen Anatomical Collection Method Collection Time Receive d Time (Source) Location / / Volume Laterality Blood 08/10/2021 6:25 AM 7:11 EDT AM EDT Resulting Agency Comment Spec In Lab Trung Gorman MD CHEMISTRY ORDERABLES Performing Organization Address City/State/ZIP Code Phon e Number [address] (ABNORMAL) Differential, Automated (08/10/2021 6:25 AM EDT) athologist Signature Neutrophils % 56.5 % [facility] LABORATORY Neutr Abs (ANC) 3.98 1.70 - [facility] 6.10 [facility] x10(3)/[facility] LABORATORY Lymphocytes % 24.7 % [facility] LABORATORY Lymphocytes Abs 1.7 0.9 - 3.2 [facility] x10(3)/[facility] LABORATORY Monocytes % 13.1 % [facility] LABORATORY Monocyte Abs 0.9 0.3 - 0.9 [facility] x10(3)/[facility] LABORATORY Eosinophils % 3.7 % [facility] LABORATORY Eosinophils Abs 0.3 0.0 - 0.4 [facility] x10(3)/[facility] LABORATORY Basophils % 0.9 % [facility] LABORATORY Basophils Abs 0.1 0.0 - 0.1 [facility] x10(3)/[facility] LABORATORY Immature Gran % 1.10 % [facility] LABORAT[facility] Comment: Immature granulocytes(IG's)percentage an d absolute count will include metamyelocytes, myelocytes, and promyelo cytes. Blood smears from CBCs yielding IG's will be scanned manually for concor dance. If this scan disagrees with the automated IG or if promyelocytes are not ed, a manual differential will be performed. Zenaida Gran Abs 0.08 (H) 0.00 - 0.04 x10(3)/[facility] LABORATORY Specimen Anatomical Collection Method Collection Time Receive d Time (Source) Location / / Volume Laterality Blood 08/10/2021 6:25 AM 6:34 EDT AM EDT Resulting Agency Comment Spec In Lab Mica Martinez APRN HEMATOLOGY ORDERABLES Performing Organization Address City/State/[place] [address] (ABNORMAL) Hemogram (08/10/2021 6:25 AM EDT) [facility] gist Method Time Signature WBC 7.0 4.0 - 9.5 [facility] x10(3)/[facility] LABORATORY RBC 2.66 (L) 4.00 - [facility] 5.21 [facility] x10(6)/[facility] LABORATORY Hemoglobin 8.8 (L) 11.7 - [facility] 15.5 g/dL [place] [facility] Hematocrit 28.7 (L) 35.7 - [facility] 45.8 % [place] [facility] MCV 107.9 (H) 82.6 - [facility] 94.4 [facility] LABORATORY MCH 33.1 (H) 27.1 - [facility] 32.0 pg [place] [facility] MCHC 30.7 (L) 31.7 - [facility] 35.0 g/dL [place] [facility] Platelets 290 145 - 357 [facility] x10(3)/[facility] LABORATORY RDWSD 54.1 (H) 37.0 - [facility] 46.0 [facility] LABORATORY RDWCV 13.6 11.5 - [facility] 14.1 % [place] [facility] MPV 10.6 7.6 - 12.9 [facility] [place] LABORATORY nRBC % Auto 0.0 % [facility] LABORATORY nRBC Abs Auto 0.000 0.000 - [facility] 0.000 [facility] x10(3)/[facility] LABORATORY Specimen Anatomical Collection Method Collection Time Receive d Time (Source) Location / / Volume Laterality Blood 08/10/2021 6:25 AM 2 6:34 EDT AM EDT Resulting Agency Comment Spec In Lab Mica Martinez APRN HEMATOLOGY ORDERABLES Performing Organization Address City/State/[place] [address] (ABNORMAL) Basic Metabolic Panel (non-fasting) (08/10/2021 6:25 AM EDT) athologist Signature Glucose Lvl 117 65 - 199 [facility] mg/dL [place] [facility] Comment: Diabetes: >=200 mg/dL plus symp toms BUN 8 8 - 18 mg/dL [facility] LABORATORY Creatinine 0.42 (L) 0.70 - 1.20 mg/dL [facility] LABORATORY Sodium 133 (L) 135 - 145 mmol/L [facility] LABORATORY Potassium 3.6 3.5 - 5.0 mmol/L [facility]ATORY Comment: Please note: ??Patients with WBC >100,00 0 may have falsely elevated Potassium levels. ??For accurate Potassium quantif ication in these patients send serum separator tube (gold top) for subsequent determinations. ??Contact the Clinical Chemistry Laboratory if there are any qu estions. Chloride 95 (L) 98 - 107 mmol/L [facility] LABORATORY CO2 31 22 - 31 mmol/L [facility]OR[facility] Anion Gap 7 5 - 15 mmol/L [facility] LABORATORY Calcium 8.5 8.5 - 10.5 mg/dL [facility] LABORATORY Estimated GFR 111 >=60 mL/min/1.73 m?? [facility] Comment: This patient? s estimated glomerular filtration rate (eGFR) is between 111 mL/min/1.73 m2 (patients with less muscl e mass) and 129 mL/min/1.73 m2 (patients with more muscle mass) as dete rmined by the CKD-EPI equation. Assessment of eGFR is not appropriate wh en creatinine concentrations are rapidly changing. For clinical decisions where creatinine clearance will affect therapy, a 24-hour urine creatinine kay floyd may be advised. Assignment of CKD stage 1 - 5 for patien ts with an eGFR near the transition point between stages may be based on cli nical assessment of muscle mass and symptoms in addition to eGFR. Specimen Anatomical Collection Method Collection Time Receive d Time (Source) Location / / Volume Laterality Blood 08/10/2021 6:25 AM 2 6:34 EDT AM EDT Resulting Agency Comment Spec In Lab Mica Martinez APRN CHEMISTRY ORDERABLES Performing Organization Address City/[facility]/ZIP Code Phon e Number [address] Phosphorus (08/09/2021 5:13 PM EDT) athologist Signature Phosphorus 3.2 2.5 - 4.5 [facility] mg/dL [place] [facility] Comment: result rechecked-tmp Specimen Anatomical Collection Method Collection Time Receive d Time (Source) Location / / Volume Laterality Blood 08/09/2021 5:13 PM 2 5:42 EDT PM EDT Resulting Agency Comment Spec In Lab Trung Gorman MD CHEMISTRY ORDERABLES Performing Organization Address City/State/[place] [address] XR Chest PA & Lateral (Generic) (08/09/2021 1:26 PM EDT) Anatomical Region Laterality Modality Chest N/A Digital Radiography Specimen (Source) Anatomical Location Collection Method / Collectio n Time Received Time / Laterality Volume Impressions 08/09/2021 1:41 PM EDT Diffuse pulmonary edema and cardiomegaly consistent with congestive heart failure. 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 Thank you for letting us participate in the care of this patient. ??If you are a health care provider and have any questi ons regarding this report, please contact the number below. ??For patients who have questions please contact the health childcare center director that requested your imaging first. ? Electronically signed by: Angelica hopkins MD, [facility] ([phone]), at 08/09/2021 1:41 PM Narrative 08/09/2021 1:41 PM EDT EXAMINATION: XR CHEST PA AND LATERAL (GENERIC) CLINICAL HISTORY: New O2 requirement - p lease evaluate for pulmonary edema in setting of known retrictive lung disease and recent surgery with IVF - please obtain upright CXR and lateral decubitus TECHNIQUE: AP and lateral views upright of the ches t; PA left lateral decubitus view COMPARISON: Chest radiographs June 29June and August 05, 2021; CT chest June 28, 2019 FINDINGS: Lungs are hyperinflated without focal co nsolidation, pleural effusion or pneumothorax. Interstitial markings are prominent in the bilateral upper and right middle lobes, particularly on the decubitus view. Cardiac silhouette is enlarged. Mediasti nal contours are otherwise normal. Central pulmonary vasculature is obscure d. Multiple right upper quadrant surgical c lips. No free air below the diaphragm or focal extrathoracic soft tissue abnormal ity. Bone mineralization is diffusely decreas ed without fracture. Kyphosis is mildly exaggerated. Procedure Note Angelica Banks MD - 08/09/2021Forma tting of this note might be different from the original. EXAMINATION: XR CHEST PA AND LATERAL (GE NERIC) CLINICAL HISTORY: New O2 requirement - p lease evaluate for pulmonary edema in setting of known retrictive lung disease and recent surgery with IVF - please obtain upright CXR and lateral decubitus TECHNIQUE: AP and lateral views upright of the ches t; PA left lateral decubitus view COMPARISON: Chest radiographs June 29June and August 05, 2021; CT chest June 28, 2019 FINDINGS: Lungs are hyperinflated without focal co nsolidation, pleural effusion or pneumothorax. Interstitial markings are prominent in the bilateral upper and right middle lobes, particularly on the decubitus view. Cardiac silhouette is enlarged. Mediasti nal contours are otherwise normal. Central pulmonary vasculature is obscure d. Multiple right upper quadrant surgical c lips. No free air below the diaphragm or focal extrathoracic soft tissue abnormal ity. Bone mineralization is diffusely decreas ed without fracture. Kyphosis is mildly exaggerated. IMPRESSION Diffuse pulmonary edema and cardiomegaly consistent with congestive heart failure. 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 Thank you for letting us participate in the care of this patient. If you are a health care provider and have any questi ons regarding this report, please contact the number below. For patients w ho have questions please contact the health childcare center director that requested your imaging first. Electronically signed by: Angelica hopkins MD, [facility] ([phone]), at 08/09/2021 1:41 PM Trung Gorman MD IMG DX ORDERABLES (ABNORMAL) Differential, Automated (08/09/2021 8:22 AM EDT) [facility] Method Time Signature Neutrophils % 63.8 % [facility] LABORATORY Neutr Abs (ANC) 5.27 1.70 - [facility] 6.10 [facility] x10(3)/[facility] LABORATORY Lymphocytes % 19.2 % [facility] LABORATORY Lymphocytes Abs 1.6 0.9 - 3.2 [facility] x10(3)/[facility] LABORATORY Monocytes % 13.3 % [facility] LABORATORY Monocyte Abs 1.1 (H) 0.3 - 0.9 [facility] x10(3)/[facility] LABORATORY Eosinophils % 2.5 % [facility]ORATORY Eosinophils Abs 0.2 0.0 - 0.4 [facility] x10(3)/[facility] LABORATORY Basophils % 0.5 % [facility] Basophils Abs 0.0 0.0 - 0.1 [facility] x10(3)/[facility] LABORATORY Immature Gran % 0.70 % [facility] Comment: Immature granulocytes(IG's)percentage an d absolute count will include metamyelocytes, myelocytes, and promyelo cytes. Blood smears from CBCs yielding IG's will be scanned manually for concrosa m danberyl. If this scan disagrees with the automated IG or if promyelocytes are not ed, a manual differential will be performed. Zenaida Gran Abs 0.06 (H) 0.00 - 0.04 x10(3)/[facility] LABORATORY Specimen Anatomical Collection Method Collection Time Receive d Time (Source) Location / / Volume Laterality Blood 08/09/2021 8:22 AM 2 8:35 EDT AM EDT Resulting Agency Comment Spec In Lab Mica Martinez [employer] HEMATOLOGY ORDERABLES Performing Organization Address City/State/[place] [address] (ABNORMAL) Hemogram (08/09/2021 8:22 AM EDT) [facility] gist Method Time Signature WBC 8.3 4.0 - 9.5 [facility] x10(3)/[facility] LABORATORY RBC 2.68 (L) 4.00 - [facility] 5.21 [facility] x10(6)/[facility] LABORATORY Hemoglobin 9.0 (L) 11.7 - [facility] g/dL [place] [facility] Hematocrit 28.7 (L) 35.7 - [facility] 45.8 % [place] [facility] MCV 107.1 (H) 82.6 - [facility] 94.4 [facility] LABORATORY MCH 33.6 (H) 27.1 - [facility] 32.0 pg [place] [facility] MCHC 31.4 (L) 31.7 - [facility] 35.0 g/dL [place] [facility] Platelets 232 145 - 357 [facility] x10(3)/[facility] LABORATORY RDWSD 54.3 (H) 37.0 - [facility] 46.0 [facility] LABORATORY RDWCV 13.9 11.5 - [facility] 14.1 % [place] [facility] MPV 10.4 7.6 - 12.9 [facility] [place] LABORATORY nRBC % Auto 0.0 % [facility] LABORATORY nRBC Abs Auto 0.000 0.000 - [facility] 0.000 [facility] x10(3)/[facility] LABORATORY Specimen Anatomical Collection Method Collection Time Receive d Time (Source) Location / / Volume Laterality Blood 08/09/2021 8:22 AM 2 8:35 EDT AM EDT Resulting Agency Comment Spec In Lab Mica Martinez DARI HEMATOLOGY ORDERABLES Performing Organization Address City/State/ZIP Code Phon e Number [address] Magnesium (08/09/2021 8:22 AM EDT) athologist Signature Magnesium 0.74 0.69 - 1.07 [facility] mmol/L [place] [facility] Specimen Anatomical Collection Method Collection Time Receive d Time (Source) Location / / Volume Laterality Blood 08/09/2021 8:22 AM 8:36 EDT AM EDT Resulting Agency Comment Spec In Lab Mica Martinez [employer] CHEMISTRY ORDERABLES Performing Organization Address City/[facility] Code Phon e Number [address] (ABNORMAL) Basic Metabolic Panel (non-fasting) (08/09/2021 8:22 AM EDT) athologist Signature Glucose Lvl 101 65 - 199 [facility] mg/dL [place] [facility] Comment: Diabetes: >=200 mg/dL plus symp toms BUN 9 8 - 18 mg/dL [facility] LABORATORY Creatinine 0.53 (L) 0.70 - 1.20 mg/dL [facility] LABORATORY Sodium 134 (L) 135 - 145 mmol/L [facility] LABORATORY Potassium 3.9 3.5 - 5.0 mmol/L [facility] Comment: Please note: ??Patients with WBC >100,00 0 may have falsely elevated Potassium levels. ??For accurate Potassium quantif ication in these patients send serum separator tube (gold top) for subsequent determinations. ??Contact the Clinical Chemistry Laboratory if there are any qu estions. Chloride 99 98 - 107 mmol/L [facility] LABORATORY CO2 27 22 - 31 mmol/L [facility] Anion Gap 8 5 - 15 mmol/L [facility] LABORATORY Calcium 8.5 8.5 - 10.5 mg/dL [facility] LAB[facility] Estimated GFR 103 >=60 mL/min/1.73 m?? [facility] Comment: This patient? s estimated glomerular filtration rate (eGFR) is between 103 mL/min/1.73 m2 (patients with less muscl e mass) and 120 mL/min/1.73 m2 (patients with more muscle mass) as dete rmined by the CKD-EPI equation. Assessment of eGFR is not appropriate wh en creatinine concentrations are rapidly changing. For clinical decisions where creatinine clearance will affect therapy, a 24-hour urine creatinine kay mariel may be advised. Assignment of CKD stage 1 - 5 for patien ts with an eGFR near the transition point between stages may be based on cli nical assessment of muscle mass and symptoms in addition to eGFR. Specimen Anatomical Collection Method Collection Time Receive d Time (Source) Location / / Volume Laterality Blood 08/09/2021 8:22 AM 2 8:36 EDT AM EDT Resulting Agency Comment Spec In Lab Mica Martinez APRN CHEMISTRY ORDERABLES Performing Organization Address City/State/ZIP Code Phon e Number [address] (ABNORMAL) Phosphorus (08/09/2021 8:22 AM EDT) P athologist Signature Phosphorus 1.6 (L) 2.5 - 4.5 [facility] mg/dL [place] [facility] Specimen Anatomical Collection Method Collection Time Receive d Time (Source) Location / / Volume Laterality Blood 08/09/2021 8:22 AM 2 8:36 EDT AM EDT Resulting Agency Comment Spec In Lab Trung Gorman MD CHEMISTRY ORDERABLES Performing Organization Address City/State/ZIP Code Phon e Number [address] (ABNORMAL) Differential, Automated (08/08/2021 9:21 AM EDT) Patholo gist Method Time Signature Neutrophils % 71.7 % [facility] LABORATORY Neutr Abs (ANC) 7.07 (H) 1.70 - [facility] 6.10 [facility] x10(3)/[facility] L LABORATORY Lymphocytes % 12.8 % [facility] LABORATORY Lymphocytes Abs 1.3 0.9 - 3.2 [facility] x10(3)/[facility] LABORATORY Monocytes % 12.7 % [facility] LABORATORY Monocyte Abs 1.2 (H) 0.3 - 0.9 [facility] x10(3)/[facility] LABORATORY Eosinophils % 1.8 % [facility] LABORATORY Eosinophils Abs 0.2 0.0 - 0.4 [facility] x10(3)/[facility] LABORATORY Basophils % 0.4 % [facility]ORATORY Basophils Abs 0.0 0.0 - 0.1 [facility] x10(3)/[facility] LABORATORY Immature Gran % 0.60 % [facility] Comment: Immature granulocytes(IG's)percentage an d absolute count will include metamyelocytes, myelocytes, and promyelo cytes. Blood smears from CBCs yielding IG's will be scanned manually for concor dance. If this scan disagrees with the automated IG or if promyelocytes are not ed, a manual differential will be performed. Zenaida Gran Abs 0.06 (H) 0.00 - 0.04 x10(3)/[facility] LABORATORY Specimen Anatomical Collection Method Collection Time Receive d Time (Source) Location / / Volume Laterality Blood 08/08/2021 9:21 AM 9:43 EDT AM EDT Resulting Agency Comment Spec In Lab Radha Gallegos APRN HEMATOLOGY ORDERABLES Performing Organization Address City/State/[place] [address] (ABNORMAL) Hemogram (08/08/2021 9:21 AM EDT) [facility] gist Method Time Signature WBC 9.9 (H) 4.0 - 9.5 [facility] x10(3)/[facility] LABORATORY RBC 2.68 (L) 4.00 - [facility] 5.21 [facility] x10(6)/[facility] LABORATORY Hemoglobin 9.3 (L) 11.7 - [facility] 15.5 g/dL [place] [facility] Hematocrit 29.6 (L) 35.7 - [facility] 45.8 % [place] [facility] MCV 110.4 (H) 82.6 - [facility] 94.4 [facility] LABORATORY MCH 34.7 (H) 27.1 - [facility] 32.0 pg [place] [facility] MCHC 31.4 (L) 31.7 - [facility] 35.0 g/dL [place] [facility] Platelets 209 145 - 357 [facility] x10(3)/[facility] LABORATORY RDWSD 57.4 (H) 37.0 - [facility] 46.0 [facility] LABORATORY RDWCV 14.1 11.5 - P[facility] CELSO 14.1 % [place] [facility] MPV 10.9 7.6 - 12.9 [facility] LABORATORY nRBC % Auto 0.0 % [facility] LABORATORY nRBC Abs Auto 0.000 0.000 - [facility] CELSO 0.000 [facility] x10(3)/[facility] LABORATORY Specimen Anatomical Collection Method Collection Time Receive d Time (Source) Location / / Volume Laterality Blood 08/08/2021 9:21 AM 9:43 EDT AM EDT Resulting Agency Comment Spec In Lab Radha Gallegos APRN HEMATOLOGY ORDERABLES Performing Organization Address City/State/[place] [address] (ABNORMAL) Basic Metabolic Panel (non-fasting) (08/08/2021 9:21 AM EDT) athologist Signature Glucose Lvl 194 65 - 199 [facility] mg/dL [place] [facility] Comment: Diabetes: >=200 mg/dL plus symp toms BUN 12 8 - 18 mg/dL [facility] LABORATORY Creatinine 0.67 (L) 0.70 - 1.20 mg/dL [facility] LABORATORY Sodium 131 (L) 135 - 145 mmol/L [facility] LABORATORY Potassium 4.5 3.5 - 5.0 mmol/L [facility] LAB[facility]ATORY Comment: Please note: ??Patients with WBC >100,00 0 may have falsely elevated Potassium levels. ??For accurate Potassium quantif ication in these patients send serum separator tube (gold top) for subsequent determinations. ??Contact the Clinical Chemistry Laboratory if there are any qu estions. Chloride 98 98 - 107 mmol/L [facility] LABORATORY CO2 25 22 - 31 mmol/L [facility] LABORATORY Anion Gap 8 5 - 15 mmol/L [facility] LABORATORY Calcium 8.2 (L) 8.5 - 10.5 mg/dL [facility] LABORATORY Estimated GFR 96 >=60 mL/min/1.73 m?? [facility] Comment: This patient? s estimated glomerular filtration rate (eGFR) is between 96 mL/min/1.73 m2 (patients with less muscl e mass) and 111 mL/min/1.73 m2 (patients with more muscle mass) as dete rmined by the CKD-EPI equation. Assessment of eGFR is not appropriate wh en creatinine concentrations are rapidly changing. For clinical decisions where creatinine clearance will affect therapy, a 24-hour urine creatinine kay mariel may be advised. Assignment of CKD stage 1 - 5 for patien ts with an eGFR near the transition point between stages may be based on cli nical assessment of muscle mass and symptoms in addition to eGFR. Specimen Anatomical Collection Method Collection Time Receive d Time (Source) Location / / Volume Laterality Blood 08/08/2021 9:21 AM 2 9:43 EDT AM EDT Resulting Agency Comment Spec In Lab Radha Gallegos APRN CHEMISTRY ORDERABLES Performing Organization Address City/State/[place] [address] Magnesium (08/07/2021 3:42 AM EDT) P athologist Signature Magnesium 0.89 0.69 - 1.07 [facility] mmol/L [place] [facility] Specimen Anatomical Collection Method Collection Time Receive d Time (Source) Location / / Volume Laterality Blood Venous Draw / 08/07/2021 3:42 AM 08/08/19 4:08 Unknown EDT AM EDT Resulting Agency Comment Spec In Lab Roseline Harman MD CHEMISTRY ORDERABLES Performing Organization Address City/[facility]/[place] [address] Scan, Peripheral Blood (08/07/2021 3:42 AM EDT) [facility] Method Time Signature Plat Estimate Normal [facility] LABORATORY RBC Morphology Abnormal [facility] Macrocytes 1-5 /HPF [facility] LABORATORY Specimen Anatomical Collection Method Collection Time Receive d Time (Source) Location / / Volume Laterality Blood 08/07/2021 3:42 AM 4:04 EDT AM EDT Resulting Agency Comment Spec In Lab Ngozi Rinaldi MD HEMATOLOGY ORDERABLES Performing Organization Address City/State/ZIP Code Phon e Number [address] (ABNORMAL) Differential, Automated (08/07/2021 3:42 AM EDT) [facility] Method Time Signature Neutrophils % 78.9 % [facility] LABORATORY Neutr Abs (ANC) 6.90 (H) 1.70 - [facility] 6.10 [facility] x10(3)/[facility] L LABORATORY Lymphocytes % 7.4 % [facility] LABORATORY Lymphocytes Abs 0.6 (L) 0.9 - 3.2 [facility] x10(3)/[facility] LABORATORY Monocytes % 12.7 % [facility] LABORATORY Monocyte Abs 1.1 (H) 0.3 - 0.9 [facility] x10(3)/[facility] LABORATORY Eosinophils % 0.2 % [facility] LABORATORY Eosinophils Abs 0.0 0.0 - 0.4 [facility] x10(3)/[facility] LABORATORY Basophils % 0.5 % [facility] LABORATORY Basophils Abs 0.0 0.0 - 0.1 [facility] x10(3)/[facility] LABORATORY Immature Gran % 0.30 % [facility]ORATORY Comment: Immature granulocytes(IG's)percentage an d absolute count will include metamyelocytes, myelocytes, and promyelo cytes. Blood smears from CBCs yielding IG's will be scanned manually for concor dance. If this scan disagrees with the automated IG or if promyelocytes are not ed, a manual differential will be performed. Zenaida Gran Abs 0.03 0.00 - 0.04 x10(3)/[facility] LABORATORY Specimen Anatomical Collection Method Collection Time Receive d Time (Source) Location / / Volume Laterality Blood 08/07/2021 3:42 AM 4:04 EDT AM EDT Resulting Agency Comment Spec In Lab Ngozi Rinaldi MD HEMATOLOGY ORDERABLES Performing Organization Address City/State/[place] [address] (ABNORMAL) Hemogram (08/07/2021 3:42 AM EDT) [facility] gist Method Time Signature WBC 8.8 4.0 - 9.5 [facility] x10(3)/[facility] LABORATORY RBC 3.16 (L) 4.00 - [facility] 5.21 [facility] x10(6)/[facility] LABORATORY Hemoglobin 10.6 (L) 11.7 - [facility] g/dL [place] [facility] Hematocrit 33.5 (L) 35.7 - [facility] 45.[facility] % [place] [facility] MCV 106.0 (H) 82.6 - [facility] 94.4 [facility] LABORATORY MCH 33.5 (H) 27.1 - [facility] 32.0 pg [place] [facility] MCHC 31.6 (L) 31.7 - [facility] 35.[facility] g/dL [place] [facility] Platelets 199 145 - 357 [facility] x10(3)/[facility] LABORATORY RDWSD 54.6 (H) 37.0 - [facility] CELSO 46.0 [facility] LABORATORY RDWCV 13.7 11.5 - [facility] CELSO 14.1 % [place] [facility] MPV 10.8 7.6 - 12.9 [facility] LABORATORY nRBC % Auto 0.0 % [facility] LABORATORY nRBC Abs Auto 0.000 0.000 - [facility] CELSO 0.000 [facility] x10(3)/[facility] LABORATORY Specimen Anatomical Collection Method Collection Time Receive d Time (Source) Location / / Volume Laterality Blood 08/07/2021 3:42 AM 2 4:04 EDT AM EDT Resulting Agency Comment Spec In Lab Ngozi Rinaldi MD HEMATOLOGY ORDERABLES Performing Organization Address City/State/[place] [address] (ABNORMAL) Basic Metabolic Panel (non-fasting) (08/07/2021 3:42 AM EDT) P athologist Signature Glucose Lvl 136 65 - 199 [facility] mg/dL [place] [facility] Comment: Diabetes: >=200 mg/dL plus symp toms BUN 12 8 - 18 mg/dL [facility] LABORATORY Creatinine 0.56 (L) 0.70 - 1.20 mg/dL [facility] LABORATORY Sodium 137 135 - 145 mmol/L [facility] LABORATORY Potassium 4.1 3.5 - 5.0 mmol/L [facility] LABORATORY Comment: Please note: ??Patients with WBC >100,00 0 may have falsely elevated Potassium levels. ??For accurate Potassium quantif ication in these patients send serum separator tube (gold top) for subsequent determinations. ??Contact the Clinical Chemistry Laboratory if there are any qu estions. Chloride 100 98 - 107 mmol/L [facility]ORATORY CO2 24 22 - 31 mmol/L [facility] LABOR[facility]ORY Anion Gap 13 5 - 15 mmol/L [facility] LABORATORY Calcium 7.8 (L) 8.5 - 10.5 mg/dL [facility] LABORATORY Estimated GFR 101 >=60 mL/min/1.73 m?? [facility] Comment: This patient? s estimated glomerular filtration rate (eGFR) is between 101 mL/min/1.73 m2 (patients with less muscl e mass) and 117 mL/min/1.73 m2 (patients with more muscle mass) as dete rmined by the CKD-EPI equation. Assessment of eGFR is not appropriate wh en creatinine concentrations are rapidly changing. For clinical decisions where creatinine clearance will affect therapy, a 24-hour urine creatinine kay floyd may be advised. Assignment of CKD stage 1 - 5 for patien ts with an eGFR near the transition point between stages may be based on cli nical assessment of muscle mass and symptoms in addition to eGFR. Specimen Anatomical Collection Method Collection Time Receive d Time (Source) Location / / Volume Laterality Blood 08/07/2021 3:42 AM 2 4:04 EDT AM EDT Resulting Agency Comment Spec In Lab Trung Gorman MD CHEMISTRY ORDERABLES Performing Organization Address City/State/[place] [address] XR Pelvis (Generic) (08/06/2021 11:47 AM EDT) Anatomical Region Laterality Modality Pelvis N/A Digital Radiography Specimen (Source) Anatomical Location Collection Method / Collectio n Time Received Time / Laterality Volume Impressions 08/06/2021 11:51 AM EDT Post RIGHT total hip arthroplasty since the previous study. No radiographic evidence of complication . Thank you for letting us participate in the care of this patient. ??If you are a health care provider and have any questi ons regarding this report, please contact the number below. ??For patients who have questions please contact the health childcare center director that requested your imaging first. ? Electronically signed by: Alejandro romeo MD, [facility] ([phone]), at 08/06/2021 11:51 AM Narrative 08/06/2021 11:51 AM EDT EXAMINATION: XR PELVIS (GENERIC) CLINICAL HISTORY: s/p right JACKSON - please obtain single AP view in PACU TECHNIQUE: 1 views of the pelvis COMPARISON: Preoperative study from 08/05/2021 FINDINGS: Post RIGHT total hip arthroplasty since the previous study. No radiographic evidence of complication . Procedure Note Alejandro Cortez MD - 08/06/2021Form atting of this note might be different from the original. EXAMINATION: XR PELVIS (GENERIC) CLINICAL HISTORY: s/p right JACKSON - please obtain single AP view in PACU TECHNIQUE: 1 views of the pelvis COMPARISON: Preoperative study from 08/05/2021 FINDINGS: Post RIGHT total hip arthroplasty since the previous study. No radiographic evidence of complication . IMPRESSION Post RIGHT total hip arthroplasty since the previous study. No radiographic evidence of complication . Thank you for letting us participate in the care of this patient. If you are a health care provider and have any questi ons regarding this report, please contact the number below. For patients w ho have questions please contact the health childcare center director that requested your imaging first. Electronically signed by: Alejandro romeo MD, [facility] ([phone]), at 08/06/2021 11:51 AM Trung Gorman MD IMG DX ORDERABLES Surgical Pathology Report (08/06/2021 9:41 AM EDT) Component Value Ref Test Analysis Performed At [facility] Range Method Time Signature Surgical [id number] ? Location: [facility]; [facility]; [facility] Report The signing pathologist has (i) examined the relevant preparation(s) for the [facility] specimen(s) and (ii) rendered or confirmed the diagnosis(es) . HOSPITAL LABORATORY . ?Surgic al Pathology DIAGNOSIS A - Right femoral head, resection: ?Consistent with a history of fracture; no evidence of neoplasia. Electronically signed by: ?Alejandro Lee MD Verified: ??08/11/2021 11:28 ??Pathologist Performed at: ??-[facility] Dept. of Pathology, [place], [place] SPECIMEN(S) SUBMITTED A - Right femoral head, resection (1) CLINICAL INFORMATION Right femoral neck fracture SPECIMEN PROCESSING A - Labeled/Fixative: Right femoral head, fresh. Quantity/Size: ??Single, aggregate 7.2 x 5.5 x 4.2 cm. Tissue Description: Fragmented, femoral head, femoral neck. Margin: Resection margin is irregular, with friable hemorrhage. Specimen consists of the main femoral head wi th three additional irregular not oriented fragments of necrotic bone. Articular surface: Smooth ta n-brown with jagged areas of hemorrhagic necrosis towards femoral neck. ??Eburnation: Absent. ??Osteophytes: Absent. Cut surface: Diffuse dark br own hemorrhage spanning the circumference of the femoral head towards the femoral ne ck, otherwise cut surface is smooth yellow cancellous bone. ??Subchondral Sclerosis: Absent. ??Subchondral Cysts: Absent. Sections/Processing: Blocks submitted for decalcification: A1 through A4. Birth Attendant sections in 4 cassettes as follows: ?A1: ??Birth Attendant femoral head towards femoral neck at fracture site ?A2: ??Birth Attendant a dditional femoral head area of hemorrhagic necrosis ?A3: ??Birth Attendant fragment of femoral n deisy with hemorrhagic necrosis ?A4: ??Birth Attendant femoral head with fovea capitis ??lv Specimen (Source) Anatomical Collection Method Collection Time Re ceived Time Location / / Volume Laterality 08/06/2021 9:41 AM EDT Dusty Peterson MD PATHOLOGY/CYTOLOGY ORDERABLE S Performing Organization Address City/[facility]/[place] [address] Specimen to Pathology (08/06/2021 9:41 AM EDT) Specimen Anatomical Collection Method Collection Time Receive d Time (Source) Location / / Volume Laterality AP Specimen 08/06/2021 9:41 AM 9:41 EDT AM EDT Narrative [facility] - 08/06/2021 9:41 AM EDT Specimen requisition ordered. ??Separate Pathology report to follow Trung Gorman MD PATHOLOGY/CYTOLOGY ORDERABLE S Performing Organization Address City/[facility] [place] [address] Type and Screen Validity (08/06/2021 3:54 AM EDT) [facility] gist Method Time Signature T&S only valid [facility] [place] [facility] Comment: This Type and Screen result is only valid at the [facility] Specimen Anatomical Collection Method Collection Time Receive d Time (Source) Location / / Volume Laterality Blood 08/06/2021 3:54 AM 2 4:03 EDT AM EDT Resulting Agency Comment Spec In Lab Anne Marie Costello MD BLOOD BANK ORDERABLES Performing Organization Address City/[facility]/[place] [address] ABORH Recheck Status (08/06/2021 3:54 AM EDT) Patholo gist Method Time Signature ABORH Type Completed [facility] LABORATORY Specimen Anatomical Collection Method Collection Time Receive d Time (Source) Location / / Volume Laterality Blood 08/06/2021 3:54 AM 2 4:03 EDT AM EDT Resulting Agency Comment Spec In Lab Anne Marie Costello MD BLOOD BANK ORDERABLES Performing Organization Address City/[facility]/[place] [address] (ABNORMAL) Magnesium (08/06/2021 3:54 AM EDT) P athologist Signature Magnesium 0.60 (L) 0.69 - 1.07 [facility]/L [place] [facility] Specimen Anatomical Collection Method Collection Time Receive d Time (Source) Location / / Volume Laterality Blood 08/06/2021 3:54 AM 2 4:11 EDT AM EDT Resulting Agency Comment Spec In Lab Trung Gorman MD CHEMISTRY ORDERABLES Performing Organization Address City/[facility]/[place] [address] Phosphorus (08/06/2021 3:54 AM EDT) P athologist Signature Phosphorus 2.8 2.5 - 4.5 [facility]/dL [place] [facility] Specimen Anatomical Collection Method Collection Time Receive d Time (Source) Location / / Volume Laterality Blood 08/06/2021 3:54 AM 2 4:11 EDT AM EDT Resulting Agency Comment Spec In Lab Trung Gorman MD CHEMISTRY ORDERABLES Performing Organization Address City/[facility]/ZIP Code Phon e Number [place] [id number] HOSP[address] LAB[address]ORY Drive (ABNORMAL) Differential, Automated (08/06/2021 3:54 AM EDT) [facility] Method Time Signature Neutrophils % 73.5 % [facility] LABORATORY Neutr Abs (ANC) 6.13 (H) 1.70 - [facility] 6.10 [facility] x10(3)/[facility] LABORATORY Lymphocytes % 11.3 % [facility] LABORATORY Lymphocytes Abs 0.9 0.9 - 3.2 [facility] x10(3)/[facility] LABORATORY Monocytes % 13.5 % [facility] LABORATORY Monocyte Abs 1.1 (H) 0.3 - 0.9 [facility] x10(3)/[facility] LABORATORY Eosinophils % 0.5 % [facility] LABORATORY Eosinophils Abs 0.0 0.0 - 0.4 [facility] x10(3)/[facility] LABORATORY Basophils % 0.7 % [facility] LABORATORY Basophils Abs 0.1 0.0 - 0.1 [facility] x10(3)/[facility] LABORATORY Immature Gran % 0.50 % [facility]ORY Comment: Immature granulocytes(IG's)percentage an d absolute count will include metamyelocytes, myelocytes, and promyelo cytes. Blood smears from CBCs yielding IG's will be scanned manually for concor dance. If this scan disagrees with the automated IG or if promyelocytes are not ed, a manual differential will be performed. Zenaida Gran Abs 0.04 0.00 - 0.04 x10(3)/[facility] LABORATORY Specimen Anatomical Collection Method Collection Time Receive d Time (Source) Location / / Volume Laterality Blood 08/06/2021 3:54 AM 4:11 EDT AM EDT Resulting Agency Comment Spec In Lab Anne Marie Costello MD HEMATOLOGY ORDERABLES Performing Organization Address City/State/[place] [address] [facility] LABORATORY Drive (ABNORMAL) Hemogram (08/06/2021 3:54 AM EDT) Patholo gist Method Time Signature WBC 8.3 4.0 - 9.5 [facility] x10(3)/[facility] LABORATORY RBC 3.66 (L) 4.00 - [facility] CELSO 5.21 [facility] x10(6)/[facility] LABORATORY Hemoglobin 12.4 11.7 - [facility] 15.5 g/dL [place] [facility] Hematocrit 37.7 35.7 - [facility] 45.8 % [place] [facility] MCV 103.0 (H) 82.6 - [facility] 94.4 [facility] LABORATORY MCH 33.9 (H) 27.1 - [facility] 32.0 pg [place] [facility] MCHC 32.9 31.7 - [facility] g/dL [place] [facility] Platelets 187 145 - 357 [facility] x10(3)/[facility] LABORATORY RDWSD 52.8 (H) 37.0 - [facility] 46.0 [facility] LABORATORY RDWCV 13.8 11.5 - [facility] 14.1 % [place] [facility] MPV 10.3 7.6 - 12.[address] [facility], [place] LABORATORY nRBC % Auto 0.0 % [facility] LABORAT[facility] nRBC Abs Auto 0.000 0.000 - [facility] 0.000 [facility] x10(3)/[facility] LABORATORY Specimen Anatomical Collection Method Collection Time Receive d Time (Source) Location / / Volume Laterality Blood 08/06/2021 3:54 AM 2 4:11 EDT AM EDT Resulting Agency Comment Spec In Lab Anne Marie Costello MD HEMATOLOGY ORDERABLES Performing Organization Address City/State/[place] [address] (ABNORMAL) Basic Metabolic Panel (non-fasting) (08/06/2021 3:54 AM EDT) P athologist Signature Glucose Lvl 90 65 - 199 [facility] mg/dL [place] [facility] Comment: Diabetes: >=200 mg/dL plus symp toms BUN 21 (H) 8 - 18 mg/dL [facility] Creatinine 0.58 (L) 0.70 - 1.20 mg/dL [facility] Sodium 137 135 - 145 mmol/L [facility] Potassium 3.4 (L) 3.5 - 5.0 mmol/L [facility] Comment: Please note: ??Patients with WBC >100,00 0 may have falsely elevated Potassium levels. ??For accurate Potassium quantif ication in these patients send serum separator tube (gold top) for subsequent determinations. ??Contact the Clinical Chemistry Laboratory if there are any qu estions. Chloride 97 (L) 98 - 107 mmol/L [facility] CO2 28 22 - 31 mmol/L [facility] Anion Gap 12 5 - 15 mmol/L [facility] LABORATORY Calcium 8.5 8.5 - 10.5 mg/dL [facility] Estimated GFR 100 >=60 mL/min/1.73 m?? [facility] Comment: This patient? s estimated glomerular filtration rate (eGFR) is between 100 mL/min/1.73 m2 (patients with less muscl e mass) and 116 mL/min/1.73 m2 (patients with more muscle mass) as dete rmined by the CKD-EPI equation. Assessment of eGFR is not appropriate wh en creatinine concentrations are rapidly changing. For clinical decisions where creatinine clearance will affect therapy, a 24-hour urine creatinine kay mariel may be advised. Assignment of CKD stage 1 - 5 for patien ts with an eGFR near the transition point between stages may be based on cli nical assessment of muscle mass and symptoms in addition to eGFR. Specimen Anatomical Collection Method Collection Time Receive d Time (Source) Location / / Volume Laterality Blood 08/06/2021 3:54 AM 2 4:11 EDT AM EDT Resulting Agency Comment Spec In Lab Trung Gorman MD CHEMISTRY ORDERABLES Performing Organization Address City/State/[place] [address] Antibody screen (08/06/2021 3:54 AM EDT) [facility] gist Method Time Signature Ab Screen Negative [facility] LABORATORY Expires at 08/09/2021 PAMELA [place] [id number] on: [place] [facility] Specimen Anatomical Collection Method Collection Time Receive d Time (Source) Location / / Volume Laterality Blood 08/06/2021 3:54 AM 2 4:03 EDT AM EDT Resulting Agency Comment Spec In Lab Anne Marie Costello MD BLOOD BANK ORDERABLES Performing Organization Address City/[facility]/[place] [address] ABO/Rh Typing (08/06/2021 3:54 AM EDT) P athologist Signature ABORh Type O Pos [facility]OR[facility] Specimen Anatomical Collection Method Collection Time Receive d Time (Source) Location / / Volume Laterality Blood 08/06/2021 3:54 AM 2 4:03 EDT AM EDT Resulting Agency Comment Spec In Lab Anne Marie Costello MD BLOOD BANK ORDERABLES Performing Organization Address City/[facility] Code Phon e Number [address] APTT (08/06/2021 3:54 AM EDT) P athologist Signature PTT 26 25 - 37 sec [facility] Comment: The PTT is NOT appropriate for heparin m onitoring. Use the Anti-Xa level for heparin monitoring (HEP UFH) or LMWH mon itoring (HEP LMW). A PTT less than 37 seconds generally indicates adequate hem ostasis. Specimen Anatomical Collection Method Collection Time Receive d Time (Source) Location / / Volume Laterality Blood 08/06/2021 3:54 AM 2 4:11 EDT AM EDT Resulting Agency Comment Spec In Lab Trung Gorman MD HEMATOLOGY ORDERABLES Performing Organization Address City/[facility]/[place] [address] Prothrombin Time (08/06/2021 3:54 AM EDT) P athologist Signature PT 10.2 9.4 - 12.5 [facility] LABORATORY INR 0.9 [facility] Comment: An INR <2.0 indicates adequate procoagul ant activity for hemostasis in most patients without underlying bleeding dis orders, though the INR may not adequately reflect hemostatic capacity i n patients with liver disease and synthetic impairment. The recommended ta rget INR range for therapeutic anticoagulation is 2.0 ? 3.0 for most applications, though lower and higher ranges may be appropriate depending on c linical circumstances. Specimen Anatomical Collection Method Collection Time Receive d Time (Source) Location / / Volume Laterality Blood 08/06/2021 3:54 AM 4:11 EDT AM EDT Resulting Agency Comment Spec In Lab Trung Gorman MD HEMATOLOGY ORDERABLES Performing Organization Address City/State/[place] [address] COVID-19 PCR (08/06/2021 3:00 AM EDT) [facility] Method Time Signature SARS-CoV-2 Not Detected Not Detected [facility] RNA PCR [facility] LABORATORY Comment: This result should be interpreted in com bination with the clinical observations, patient history and epidem iological information. For testing of asymptomatic individuals, assay performa nce characteristics and clinical utility have not been evaluated. Testing for SARS-CoV-2 (Severe acute respiratory syndrome coronavirus 2, form erly known as 2019 novel coronavirus or 2019-nCoV) to aid in the diagnosis of CO VID-19 is performed using the Simplexa COVID-19 Direct Assay by [employer] as authorized by the FDA issued Emergency Use Authorization (EUA). This assay is intended for In-vitro Diagnostic (IVD) use with nasopharyngeal swabs collected from individuals meeting the CDC criteria for testing. Th e assay is performed based on the instructions for use and additional guid ance provided by the FDA. Testing is performed in the Microbiology Laboratory within the Department of Pathology and Laboratory Medicine at [facility], certified under the Clinical Laboratory Improvement Amendmen ts of 1988 (CLIA), 42 U.S.C. section 263a, to perform high complexity tests. Assay performance has been verified according to clinical laboratory regulat ory requirements. Test results are provided above. A resul t of Not Detected indicates that the viral RNA target is not present but does not preclude SARS-CoV-2 infection. False negative results may occur if a sp ecimen is improperly collected, transported or handled; if amplification inhibitors are present; or if inadequate numbers of viral particles ar e present in the specimen. A result of Detected suggests a current or recent infection and the patient is presumed to be infected. Positive and negative pr edictive values for this test are highly dependent on disease prevalence. A result of Invalid indicates the inability to conclusively determine the presence or absence of SARS-CoV-2 RNA in the sample which can be due to a vari ety of factors. Recollection is recommended in the case of an invalid re sult. CDC COVID-19 criteria for testing on hum an specimens and clinical management guidance information are available at e CDC Coronavirus Disease 2019 (COVID-19) webpage under Information fo r Healthcare Professionals (https://www.cdc.gov/coronavirus/2019-nc ov/hcp/index.html). Additional information about this and ot her EUA tests can be found in provider and patient fact sheets at the following FDA website: https://www.fda.gov/medical-devices/zlqhauiicqj-bxnhkqb-1331-bdcxd-26-rfmikfeiw- wjv-yzpjfddcywesuw-oqcmpfe-devices/jjgrw-fblutvnqcdn-qqvf SARS-CoV-2 Source METER ATTENDANT Swab [facility] LABORATORY Specimen (Source) Anatomical Collection Method Collection Time Re ceived Time Location / / Volume Laterality Nasopharyngeal Swab 08/06/2021 3:00 08/06 AM EDT 3:19 AM EDT Comment: Symptoms->Surveillance Resulting Agency Comment Spec In Lab Trung Gorman MD MICROBIOLOGY - GENERAL ORDER JAXSON Performing Organization Address City/State/[place] [address] SCAN DOC: IMPLANTABLE DEVICES (08/06/2021 12:00 AM EDT) Narrative This result has an attachment that is no t available. Unknown MEDIA MGR SCAN EXT ORDR/RSLT documented in this encounter Visit Diagnoses Diagnosis Closed fracture of right hip, initial en counter - Primary Chronic respiratory failure with hypoxia Chronic respiratory failure Right femoral neck fracture 08/05/21 Closed fracture of unspecified part of n deisy of femur Postoperative anemia due to acute blood loss Acute posthemorrhagic anemia Closed fracture of right hip, initial en counter documented in this encounter Admitting Diagnoses Diagnosis Hip fracture Closed fracture of unspecified part of n deisy of femur documented in this encounter Administered Medications Inactive Administered Medications - up to 3 most recent administrations Medication Order MAR Action Action Date Dose Rate Site acetaminophen (Tylenol) tablet Given 08/07/2021 5:19 AM EDT 1,00 0 mg 1,000 mg 1,000 mg, Oral, EVERY 8 HOURS SCHEDULED, First dose on Sat08/06/21 at 0600, Until Discontinued, Maximum dose of acetaminophen is 4000 mg from all sources in 24 hours. When ordered for pain, acetaminophen should be given even when other ordered pain medications are indicated. , Routine Given 08/06/2021 9:06 PM EDT 1,000 mg Given 08/06/2021 1:08 PM EDT 1,000 mg acetaminophen (Tylenol) tablet 1,000 mg Given 08/14/2021 11:56 AM EDT 1,000 mg 1,000 mg, Oral, EVERY 6 HOURS SCHEDULED, First dose (after last modification) on Sat08/07/21 at 1200, Until Discontinued, Maximum dose of acetaminophen is 4000 mg from all sources in 24 hours. When ordered for pain, acetaminophen should be given even when other ordered pain medications are indicated. , Routine Given 08/14/2021 5:41 AM EDT 1,000 mg Given 08/13/2021 11:34 PM EDT 1,000 mg aspirin EC tablet 81 mg Given 08/08/2021 9:08 AM EDT 81 mg 81 mg, Oral, 2 TIMES DAILY, First dose on Sat08/07/21 at 0900, Until Discontinued, Routine Given 08/07/2021 8:07 PM EDT 81 mg Given 08/07/2021 9:09 AM EDT 81 mg bisacodyL (Dulcolax) suppository 10 mg 10 mg, Rectal, DAILY PRN, Starting on Sat08/06/21 at 0 127, Until Sat08/14/21 at 1615, Constipation, Administer if needed per patient's routine or if no bowel movement within 48 hours to achieve: (1) One bowel movement every 48 hours, AND (2) without straining. If multiple PRN bowel medications ordered, start with lactulose, then oral bisacodyl, then bisacodyl supp ository. Multiple medications may be given concomitantly for constipation., Routine bisacodyl EC (Dulcolax) tablet 10 mg 10 mg, Oral, 2 TIMES DAILY PRN, Starting on Sat08/06/21 at 0127, Until Sat08/14/21 at 1615, Constipation, DO NOT CRUSH OR OPEN Administer if needed per patient's routine or if no bowel movement within 4 8 hours to achieve: (1) One bowel movement every 48 hours, AND (2) without straining. If multiple PRN bowel medications ordered, start with lactulose, then oral bisacodyl, th en bisacodyl suppository. Multiple medications may be given concomitantly for co nstipation., Routine budesonide-formoteroL (Symbicort) Given 08/14/2021 8:16 AM EDT 2 Inhalation 80-4.5 mcg/actuation inhaler 2 Inhalation 2 Inhalation, Inhalation, EVERY 12 HOURS SCHEDULED (2 times per day), First dose on Sat08/06/21 at 0900, Until Discontinued, Routine Given 08/13/2021 8:23 PM EDT 2 Inhalation Given 08/13/2021 12:52 PM EDT 2 Inhalation busPIRone (Buspar) tablet 5 mg Given 08/07/2021 6:11 AM EDT 5 mg 5 mg, Oral, EVERY MORNING, First dose on Sat08/07/21 at 0700, Until Discontinued, Routine busPIRone (Buspar) tablet 5 mg Given 08/14/2021 8:41 AM EDT 5 mg 5 mg, Oral, 2 TIMES DAILY, First dose on Sat08/07/21 at 1030, Until Discontinued, Routine Given 08/13/2021 8:21 PM EDT 5 mg Given 08/13/2021 12:55 PM EDT 5 mg calcium carbonate (Tums) chewable tablet 500 Given 8:42 AM EDT 500 mg mg 500 mg, Oral, 2 TIMES DAILY WITH MEALS, First dose on Sat08/09/21 at 0830, Until Discontinued, Routine Given 08/13/2021 4:15 PM EDT 500 mg Given 08/12/2021 4:45 PM EDT 500 mg ceFAZolin (Ancef) 2 g in dextrose 5% New Bag 08/06/2021 1:59 A M EDT 2 g 200 mL/hr 100 mL infusion 2 g, Intravenous, 30 MIN PRE-OP, 1 dose, On Sat08/06/21 at 0230, Administer over 30 Minutes, Adjust to 4 hours from intraoperative dose. * Beta-lactam based antibiotics (eg. Ampicillin, Cefazolin, Aztreonam) should be administered within 4 hours of the preceding intraoperative dose. * Vancomycin, Flouroquinolones, Clindamycin, Gentamicin, and Metronidazole should be administered within 8 hours of the preceding intraoperative dose., Recovery (Recovery-Hospital Unit), Indication for (Active or Suspected): Prophylaxis cholecalciferol (Vitamin D3) (Vitamin Given 08/14/2021 8:42 AM E DT 1,000 Units D3) tablet 1,000 Units 1,000 Units, Oral, DAILY, First dose on Sat08/09/21 at 0900, Until Discontinued, 40 units is equivalent to 1 mcg of cholecalciferol., Routine Given 08/12/2021 8:08 AM EDT 1,000 Units Given 08/11/2021 8:10 AM EDT 1,[address] (Cymbalta) capsule 60 mg Given 08/14/2021 8:41 AM EDT 60 mg 60 mg, Oral, DAILY, First dose on Sat08/07/21 at 0900, Until Discontinued, Routine Given 08/13/2021 12:54 PM EDT 60 mg Given 08/12/2021 8:07 AM EDT 60 mg electrolyte replacement solution (pH 7.4) New Bag 2021 3:40 PM EDT 500 mLs (Normosol-R, Plasmalyte-A) infusion 500 mL, Intravenous, ONCE, 1 dose, On Sat08/13/21 at 1515 enoxaparin (Lovenox) (30 mg/0.3 mL) Given 08/13/2021 8:22 PM EDT 30 mg subcutaneous injection 30 mg 30 mg, Subcutaneous, NIGHTLY, First dose on Sat08/08/21 at 2130, Until Discontinued, Wt < 50 kg at 47.9 kg - dose adjusted to 30mg, Routine Given 08/12/2021 8:39 PM EDT 30 mg Given 08/10/2021 8:32 PM EDT 30 mg folic acid (Folvite) tablet 1,000 mcg Given 08/14/2021 8:42 AM EDT 1,000 mcg 1,000 mcg, Oral, DAILY, First dose on Sat08/09/21 at 0900, Until Discontinued, Routine Given 08/13/2021 8:40 AM EDT 1,000 mcg Given 08/12/2021 8:08 AM EDT 1,000 mcg furosemide (Lasix) tablet 40 mg Given 08/12/2021 8:08 AM EDT 40 mg 40 mg, Oral, DAILY, First dose (after last modification) on Sat08/07/21 at 0900, Until Discontinued, Hold for systolic blood pressure less than 95, Routine Given 08/11/2021 8:09 AM EDT 40 mg Given 08/10/2021 8:21 AM EDT 40 mg gabapentin (Neurontin) capsule 300 mg Given 08/14/2021 1:24 PM EDT 300 mg 300 mg, Oral, 3 TIMES DAILY, First dose on Sat08/07/21 at 0900, Until Discontinued, Routine Given 08/14/2021 8:41 AM EDT 300 mg Given 08/13/2021 11:34 PM EDT 300 mg HYDROmorphone (Dilaudid) (1 mg/mL) injection Given 3:20 PM EDT 0.2 mg syringe 0.2 mg 0.2 mg, Intravenous, EVERY 4 HOURS PRN, Starting on 08/06/21 at 0231, Until Sat08/07/21 at 0736, Pain, mild pain (1-3), May give an additional 0.2 mg in 30 minutes once if pain not relieved., Routine HYDROmorphone (Dilaudid) (1 mg/mL) injection Given 6:18 AM EDT 0.4 mg syringe 0.4 mg 0.4 mg, Intravenous, EVERY 4 HOURS PRN, Starting on Sat08/06/21 at 0231, Until Sat08/07/21 at 0736, Pain, moderate pain (4-6), May give an additional 0.2 mg in 30 minutes once if pain not relieved., Routine Given 08/06/2021 2:46 AM EDT 0.4 mg HYDROmorphone (Dilaudid) tablet 1-2 mg Given 08/13/2021 6:34 AM EDT 2 mg 1-2 mg, Oral, EVERY 4 HOURS PRN, Starting on Sat08/08/21 at 1648, Until Sat08/14/21 at 1615, Pain, Mild to moderate pain (1-5) take 1 mg, moderate to severe pain (6-10) take 2 mg, Routine Given 08/12/2021 11:42 PM EDT 2 mg Given 08/12/2021 2:17 PM EDT 2 mg HYDROmorphone (Dilaudid) tablet 2-4 mg Given 08/08/2021 12:08 PM EDT 4 mg 2-4 mg, Oral, EVERY 4 HOURS PRN, Starting on Sat08/08/21 at 1118, Until Sat08/08/21 at 1649, Pain, Mild to moderate pain (1-5) take 2 mg, moderate to severe pain (6-10) take 4 mg, Routine HYDROmorphone (Dilaudid) tablet 4 mg Given 08/08/2021 9:08 AM EDT 4 mg 4 mg, Oral, EVERY 4 HOURS PRN, Starting on Sat08/07/21 at 0733, Until Sat08/08/21 at 1118, Pain, for moderate pain (4-6), May give an additional 2 mg once if pain not relieved in 30-60 minutes., Routine HYDROmorphone (Dilaudid) tablet 6 mg Given 08/08/2021 4:33 AM EDT 6 mg 6 mg, Oral, EVERY 4 HOURS PRN, Starting on Sat08/07/21 at 0733, Until Sat08/08/21 at 1118, Pain, for severe pain (7-10), May give an additional 2 mg once if pain not relieved in 30-60 minutes., Routine Given 08/08/2021 12:19 AM EDT 6 mg Given 08/07/2021 8:08 PM EDT 6 mg ipratropium-albuteroL (Duoneb) 0.5 mg-3 mg(2.5 Given 0 08/06/2021 5:46 PM EDT 3 mLs mg base)/3 mL nebulizer solution 3 mL 3 mL, Nebulization, 4 TIMES DAILY PRN, Starting on Sat08/06/21 at 0353, Until Sat08/07/21 at 0835, Wheezing, Routine ipratropium-albuteroL (Duoneb) 0.5 mg-3 mg(2.5 Given 0 08/07/2021 9:16 AM EDT 3 mLs mg base)/3 mL nebulizer solution 3 mL 3 mL, Nebulization, EVERY 6 HOURS SCHEDULED, First dose (after last modification) on Sat08/07/21 at 0930, Until Discontinued, Routine ipratropium-albuteroL (Duoneb) 0.5 mg-3 mg(2.5 Given 0 08/08/2021 4:49 AM EDT 3 mLs mg base)/3 mL nebulizer solution 3 mL 3 mL, Nebulization, 4 TIMES DAILY PRN, Starting on Sat08/07/21 at 1145, Until Sat08/08/21 at 0710, Wheezing, Routine ipratropium-albuteroL (Duoneb) 0.5 mg-3 Given 08/14/2021 11:56 A M EDT 3 mLs mg(2.5 mg base)/3 mL nebulizer solution 3 mL 3 mL, Nebulization, EVERY 6 HOURS SCHEDULED, First dose (after last modification) on Sat08/08/21 at 0800, Until Discontinued, Routine Given 08/14/2021 5:41 AM EDT 3 mLs Given 08/13/2021 11:34 PM EDT 3 mLs lidocaine (Lidoderm) Patch Applied 08/11/2021 3:13 AM 3 patches 20-Other (document 5% patch 3 patch EDT in comment 3 patch, Transdermal, sec tion) EVERY 24 HOURS, First dose on Sat08/06/21 at 0330, Until Discontinued, Apply patch(es) for 12 hours, and then remove for 12 hours., Routine Patch Applied 08/10/2021 3:23 AM EDT 3 patches 17- Thigh Posterior (Left) Patch Applied 08/09/2021 3:06 AM EDT 3 patches 16- Thigh Anterior (Right) lidocaine (Lidoderm) topical patch REMOV AL Transdermal, EVERY 24 HOURS, First dose on Sat08/06/21 at 1445, Until Discontinued, Remove lidocaine 5% patch lidocaine (Xylocaine) 1% (10 mg/mL) inje ction 3 mg 3 mg (0.3 mL), Subcutaneous, ONCE PRN, 1 dose, Startin g on Sat08/06/21 at 0127, Until Sat08/14/21 at 1615, for discomfort with PIV ins ertion, Routine LORazepam (Ativan) (2 mg/mL) injection 0.5-1.5 Given 0 08/11/2021 9:07 PM EDT 1 mg mg 0.5-1.5 mg, Intramuscular, EVERY 4 HOURS PRN, Starting on Sat08/09/21 at 0848, Until Sat08/14/21 at 1141, alcohol/benzodiazepine withdrawal- uncomplicated, ATTENTION: THIS IS LOW DOSE LORAZEPAM Per assessment scale for uncomplicated withdrawal from alcohol. May give IV if unable to take PO. May give IM if no IV access. Medication should be administered at least every 4 hours: For withdrawal score of 5-7, give 0.5 mg PO or IV or IM: administer every 4 hours. For withdrawal score of 8-10, give 1 mg PO or IV or IM: administer every 4 hours. For withdrawal score of 11 or greater, give 1.5 mg PO or IV or IM: administer every 4 hours. + If withdrawal score remains 11 or greater for two consecutive assessment periods, call provider. + If patient has had seizures in previous 8 hours and has gone 4 hours without medications, give 3 mg PO or IV or IM., Routine LORazepam (Ativan) (2 mg/mL) injection 2 mg Given 08/09/2021 4:13 AM EDT 2 mg 2 mg, Intravenous, ONCE, 1 dose, On Sat08/09/21 at 0500, Routine LORazepam (Ativan) tablet 0.5-1.5 mg Given 08/13/2021 8:21 PM EDT 0.5 mg 0.5-1.5 mg, Oral, EVERY 4 HOURS PRN, Starting on Sat08/09/21 at 0848, Until Sat08/14/21 at 1141, alcohol/benzodiazepine withdrawal- uncomplicated, ATTENTION: THIS IS LOW DOSE LORAZEPAM Per assessment scale for uncomplicated withdrawal from alcohol. May give IV if unable to take PO. May give IM if no IV access. Medication should be administered at least every 4 hours: For withdrawal score of 5-7, give 0.5 mg PO or IV or IM: administer every 4 hours. For withdrawal score of 8-10, give 1 mg PO or IV or IM: administer every 4 hours. For withdrawal score of 11 or greater, give 1.5 mg PO or IV or IM: administer every 4 hours. + If withdrawal score remains 11 or greater for two consecutive assessment periods, call provider. + If patient has had seizures in previous 8 hours and has gone 4 hours without medications, give 3 mg PO or IV or IM., Routine Given 08/13/2021 4:15 PM EDT 0.5 mg Given 08/13/2021 4:49 AM EDT 1 mg LORazepam (Ativan) tablet 1 mg Given 08/11/2021 12:12 AM EDT 1 mg 1 mg, Oral, EVERY 8 HOURS SCHEDULED, First dose (after last modification) on Sat08/09/21 at 1630, Until Discontinued, Routine Given 08/10/2021 4:09 PM EDT 1 mg Given 08/10/2021 8:22 AM EDT 1 mg LORazepam (Ativan) tablet 1 mg Given 08/11/2021 7:42 PM EDT 1 mg 1 mg, Oral, ONCE, 1 dose, On Sat08/11/21 at 1945, Routine magnesium sulfate 2 g in sterile water New Bag 08/06/2021 3:21 PM EDT 2 g 25 mL/hr 50 mL infusion 2 g, Intravenous, ONCE, 1 dose, On Sat08/06/21 at 1530, Administer over 120 Minutes magnesium sulfate 2 g in sterile water New Bag 08/09/2021 11:5 6 AM EDT 2 g 25 mL/hr 50 mL infusion 2 g, Intravenous, ONCE, 1 dose, On Sat08/09/21 at 1015, Administer over 120 Minutes metoprolol tartrate (Lopressor) tablet 2 5 mg Given 08/13/2021 8:22 PM EDT 25 mg 25 mg, Oral, 2 TIMES DAILY, First dose on Sat08/07/21 at 0900, Until Discontinued, Hold for systolic blood pressure less than 105 or heart rate less than 55, Routine Given 08/13/2021 12:56 PM EDT 25 mg Given 08/12/2021 8:34 PM EDT 25 mg multivitamin with minerals (Thera M) tablet Given 07/19 8:42 AM EDT 1 tablet 1 tablet 1 tablet, Oral, DAILY, First dose on Sat08/09/21 at 0900, Until Discontinued, Routine Given 08/12/2021 8:07 AM EDT 1 tablet Given 08/11/2021 8:10 AM EDT 1 tablet ondansetron (pf) (Zofran) (2 mg/mL) injection 4 Given 08/06/2021 1:35 PM EDT 4 mg mg 4 mg, Intravenous, EVERY 8 HOURS PRN, Starting on 08/06/21 at 0127, Until Sat08/14/21 at 1615, Nausea, If multiple antiemetics are ordered, use ondansetron first, prochlorperazine second, metoclopramide third. Given 08/06/2021 2:48 AM EDT 4 mg oxyCODONE (Roxicodone) tablet 15 mg Given 08/07/2021 5:19 AM EDT 15 mg 15 mg, Oral, EVERY 4 HOURS PRN, Starting on 08/06/21 at 0128, Until Sat08/07/21 at 0736, Pain, severe pain (7-10), For severe pain (7-10). Do not exceed 15 mg in 4 hours. If pain not relieved, call provider., Routine Given 08/07/2021 1:15 AM EDT 15 mg Given 08/06/2021 9:06 PM EDT 15 mg polyethylene glycoL (Miralax) packet 17 g Given 08/10/2021 8:32 PM EDT 17 g 17 g, Oral, 2 TIMES DAILY, First dose on 08/06/21 at 0230, Until Discontinued, Routine Given 08/07/2021 8:08 PM EDT 17 g Given 08/07/2021 9:13 AM EDT 17 g potassium chloride ER (K-Dur/Klor-Con) tablet Given 3:20 PM EDT 40 mEq 40 mEq 40 mEq, Oral, ONCE, 1 dose, On 08/06/21 at 1545, 20 mEq tablet may be dissolved in water for administration, Routine potassium phosphate (monobasic) (K-Phos) Given 08/11/2021 11:27 AM EDT 500 mg tablet 500 mg 500 mg, Oral, 4 TIMES DAILY WITH MEALS & NIGHTLY, First dose on Carine 08/10/21 at 2100, Until Discontinued, Dissolve tablets in 6-8 oz of water; for best results, soak tablets in water for 2-5 minutes, then stir and give to patient. Each 500 mg tablet contains 3.7 mEq of potassium and 3.68 mmol of phosphate., Routine Given 08/11/2021 8:09 AM EDT 500 mg Given 08/10/2021 8:39 PM EDT 500 mg potassium phosphate 15 mMol in sodium New Bag 08/09/2021 2:15 PM E DT 15 mmol chloride 0.9% 250 mL 15 mmol, Intravenous, ONCE, 1 dose, On Sat08/09/21 at 1100, Administer over 4 Hours, Administer over 4-6 hours predniSONE (Deltasone) tablet 10 mg Given 08/14/2021 8:42 AM EDT 10 mg 10 mg, Oral, DAILY, First dose on Sat08/06/21 at 0900, Until Discontinued, Routine Given 08/13/2021 12:56 PM EDT 10 mg Given 08/12/2021 8:08 AM EDT 10 mg senna-docusate (Pericolace) 8.6-50 mg per Given 2021 12:55 PM EDT 2 tablets tablet 2 tablet 2 tablet, Oral, 2 TIMES DAILY, First dose on Sat08/06/21 at 0230, Until Discontinued, Routine Given 08/11/2021 8:10 AM EDT 2 tablets Given 08/10/2021 8:32 PM EDT 2 tablets simvastatin (Zocor) tablet 20 mg Given 08/13/2021 4:15 PM EDT 20 mg 20 mg, Oral, EVERY EVENING, First dose on Sat08/06/21 at 1700, Until Discontinued, Routine Given 08/12/2021 4:45 PM EDT 20 mg Given 08/11/2021 5:20 PM EDT 20 mg sirolimus (Rapamune) tablet 2 mg Given 08/14/2021 8:41 AM EDT 2 mg 2 mg, Oral, DAILY, First dose on Sat08/07/21 at 0900, Until Discontinued, DO NOT CRUSH OR OPEN, Routine Given 08/12/2021 8:07 AM EDT 2 mg Given 08/11/2021 8:09 AM EDT 2 mg sodium chloride 0.9 % (flush) (BD PosiFlush Given 08/14/2021 8:4 2 AM EDT 5 mLs Normal Saline 0.9) flush 5 mL 5 mL, Intravenous, 2 TIMES DAILY, First dose on Sat08/06/21 at 0230, Until Discontinued, Routine Given 08/13/2021 8:22 PM EDT 5 mLs Given 08/13/2021 8:39 AM EDT 5 mLs sodium chloride 0.9 % (flush) (BD PosiFl [facility] Normal Saline 0.9) flush 5-20 mL 5-20 mL, Intravenous, EVERY 1 MIN PRN, S tarting on Sat08/06/21 at 0127, Until Sat08/14/21 at 1615, flush, Flush pertains t o all indwelling lines. Flush per protocol found in the job aid using the link prov ided on this medication record., Routine sodium chloride 0.9% infusion New Bag 08/07/2021 6:51 AM EDT 1,000 mLs 100 mL/hr 1,000 mL, at 100 mL/hr, Intravenous, CONTINUOUS, Starting on Sat08/06/21 at 0230, Until Sat08/07/21 at 0935 New Bag 08/06/2021 9:07 PM EDT 1,000 mLs 100 mL/hr Restarted 08/06/2021 1:37 PM EDT 100 mL/hr thiamine (B-1) 250 mg in sodium chloride 0.9% 52.5 mL 250 mg, Intravenous, DAILY, 3 doses, Fir st dose on Sat08/15/21 at 0900, Last dose on Sat08/17/21 at 0900, Administer over 30 Minutes, Do ses of 100 mg are to be administered as IV push over 5 minutes. Doses of 200 mg or more should be mixed in 50 mL 0.9% Sodium Chloride and infused over 30 minutes . thiamine (B-1) 500 mg in sodium New Bag 08/14/2021 8:42 AM EDT 500 mg 110 mL/hr chloride 0.9% 55 mL 500 mg, Intravenous, 3 TIMES DAILY, 6 doses, First dose on 08/12/21 at 1500, Last dose on Sat08/14/21 at 0900, Administer over 30 Minutes, Doses of 100 mg are to be administered as IV push over 5 minutes. Doses of 200 mg or more should be mixed in 50 mL 0.9% Sodium Chloride and infused over 30 minutes. New Bag 08/13/2021 8:23 PM EDT 500 mg 110 mL/hr New Bag 08/13/2021 2:45 PM EDT 500 mg 110 mL/hr thiamine (Vitamin B1) tablet 100 mg Given 08/12/2021 8:08 AM EDT 100 mg 100 mg, Oral, DAILY, First dose on Sat08/09/21 at 0900, Until Discontinued, Routine Given 08/11/2021 8:10 AM EDT 100 mg Given 08/10/2021 9:00 AM EDT 100 mg traZODone (Desyrel) tablet 50 mg Given 08/08/2021 9:17 PM EDT 50 mg 50 mg, Oral, NIGHTLY PRN, Starting on Sat08/06/21 at 0354, Until Sat08/11/21 at 1859, Sleep, Routine Given 08/07/2021 8:07 PM EDT 50 mg Given 08/06/2021 9:07 PM EDT 50 mg traZODone (Desyrel) tablet 50-100 mg Given 08/12/2021 11:42 PM EDT 50 mg 50-100 mg, Oral, NIGHTLY PRN, Starting on Sat08/11/21 at 1858, Until Sat08/14/21 at 1615, Sleep, Give 50 mg prn insomnia. Can give additional 50 mg if first ineffective., Routine Given 08/12/2021 8:34 PM EDT 50 mg Given 08/12/2021 2:24 AM EDT 50 mg documented in this encounter Active and Recently Administered Medications Times are shown in EDT. Scheduled Medication Order 08/12/2021 08/13/2021 08/14/2021 acetaminophen (Tylenol) tablet 1,000 mg 0008 (Given - Provider: Osmel Flowers RN)0600 (Not Given - Provider: Omsel Flowers RN - Reason: Patient/family refused)1101 (Given - Provider: Alana Nicholson RN)1807 (Given - Provider: Alana Nicholson RN) 0000 (Not Given - Provider: Tracy fenton RN - Reason: Patient/family refused)0600 (Not Given - Provider: Tracy Bynum RN - Reason: Patient/family refused)1254 (Given - Provider: Pamela Barney RN - Comment: Pt unable to take meds this AM) 0541 (Given - Provider: Tracy Bynum RN)1156 (Given - Provider: Pamela Barney RN) 1,000 mg, Oral, EVERY 6 HOURS SCHEDULED, First dose (after last modification) on Sat08/07/21 at 1200, Until Discontinued, Maximum dose of acetaminophen is 4000 mg from all sources in 24 hours. When orde 1702 (Given - Provider: Pamela Barney RN)2334 (Given - Provider: Tracy Bynum RN) red for pain, acetaminophen should be gi merritt even when other ordered pain medications are indicated. , Routine budesonide-formoteroL (Symbicort) 80-4.5 mcg/actuation inhaler 2 Inhalation 08 (Given - Provider: Alana Nicholson RN)2033 (Given - Provider: Tracy Bynum RN) 0851 (Not Given - Provider: Pamela barrera RN - Reason: Patient Unable - Comment: Patient too drowsy to take PO meds)1252 (Given - Provider: Pamela Barney RN - Comment: Pt unable to take meds this AM)2022 (Given - Provider: Tracy Bynum RN) 0816 (Given - Provider: Pamela Barney RN) 2 Inhalation, Inhalation, EVERY 12 HOURS SCHEDULED (2 times per day), First dose on Sat08/06/21 at 0900, Until Discontinued, Routine busPIRone (Buspar) tablet 5 mg 0808 (Given - Provider: Alana Nicholson RN)2033 (Given - Provider: Tracy Bynum RN) 0840 (Not Given - Provider: Pamela Barney RN - Reason: Patient Unable - Comment: Patient too drowsy to take PO meds)1255 (Given - Provider: Pamela Barney RN - Comment: Pt unable to take meds this AM)2020 (Given - Provider: Tracy Bynum RN) 0841 (Given - Provider: Pamela Barney RN) 5 mg, Oral, 2 TIMES DAILY, First dose on Sat08/07/21 at 1030, Until Discontinued, Routine calcium carbonate (Tums) chewable tablet 500 mg 0808 ( Given - Provider: Alana Nicholson RN)1645 (Given - Provider: Alana Nicholson RN) 0839 (Not Given - Provider: Pamela Barney RN - Reason: Patient Unable - Comment: Patient too drowsy to take PO meds)1615 (Given - Provider: Pamela Barney RN) 0842 (Given - Provider: Pamela Barney RN) 500 mg, Oral, 2 TIMES DAILY WITH MEALS, First dose on Sat08/09/21 at 0830, Until Discontinued, Routine cholecalciferol (Vitamin D3) (Vitamin D3) tablet 1,000 Units 0808 (Given - Provider: Alana Nicholson RN) 0840 (Not Given - Provider: aPmela barrera RN - Reason: Patient Unable - Comment: Patient too drowsy to take PO meds) 0842 (Given - Provider: Pamela Barney RN) 1,000 Units, Oral, DAILY, First dose on Sat08/09/21 at 0900, Until Discontinued, 40 units is equivalent to 1 mcg of cholecalciferol., Routine DULoxetine DR (Cymbalta) capsule 60 mg 0807 (Given - P rovider: Alana Nicholson RN) 0839 (Not Given - Provider: Pamela barrera RN - Reason: Patient Unable - Comment: Patient too drowsy to take PO meds)1254 (Given - Provider: Pamela Barney RN - Comment: Pt unable to take meds this AM) 0841 (Given - Provider: Pamela Bareny RN) 60 mg, Oral, DAILY, First dose on Sat at 0900, Until Discontinued, Routine electrolyte replacement solution (pH 7.4 ) (Normosol-R, Plasmalyte-A) infusion (COMPLETED) 1540 (New Bag - Provider: Sherry Barney RN)1640 (Stopped - Provider: Pamela Barney RN) 500 mL, Intravenous, ONCE, 1 dose, On Sat08/13/21 at 1515 enoxaparin (Lovenox) (30 mg/0.3 mL) subcutaneous injec tion 30 mg 2038 (Given - Provider: Tracy Bynum RN) 2021 (Given - Provider: Tracy Bynum RN) 30 mg, Subcutaneous, NIGHTLY, First dose on Sat08/08/21 at 2130, Until Discontinued, Wt < 50 kg at 47.9 kg - dose adjusted to 30mg, Routine folic acid (Folvite) tablet 1,000 mcg 0808 (Given - Pr ovider: Alana Nicholson RN) 0840 (Given - Provider: Pmaela Barney RN - Comment: Patient too drowsy to take PO meds) 0842 (Given - Provider: Pamela Barney RN) 1,000 mcg, Oral, DAILY, First dose on 08/09/21 at 0900, Until Discontinued, Routine furosemide (Lasix) tablet 40 mg (CANCELED) 0808 (Given - Provider: Alana Nicholson RN) 40 mg, Oral, DAILY, First dose (after la st modification) on Sat08/07/21 at 0900, Until Discontinued, Hold for systolic blood pressure less than 95, Routine gabapentin (Neurontin) capsule 300 mg 0808 (Given - Pr ovider: Alana Nicholson RN)1417 (Given - Provider: Alana Nicholson RN)2034 (Given - Provider: Tracy Bynum RN) 0840 (Not Given - Provider: Pamela barrera RN - Reason: Patient Unable - Comment: Patient too drowsy to take PO meds)1254 (Given - Provider: Pamela Barney RN - Comment: Pt unable to take meds this AM) 0841 (Given - Provider: Pamela Barney RN)1324 (Given - Provider: Pamela Barney RN - Comment: MD approved to give this medication early prior to discharge) 300 mg, Oral, 3 TIMES DAILY, First dose on Sat08/07/21 at 0900, Until Discontinued, Routine 1702 (Given - Provider: Pamela Barney RN - Comment: 6 hrs from last dose)2334 (Given - Provider: Tracy Bynum RN) ipratropium-albuteroL (Duoneb) 0.5 mg-3 mg(2.5 mg base)/3 mL nebulizer solution 3 mL 0008 (Given - Provider: Osmel Flowers RN)0600 (Not Given - Provider: Osmel Flowers RN - Reason: Patient/family refused)1101 (Given - Provider: Alana Nicholson RN)1807 (Given - Provider: Alana Nicholson RN) 0000 (Not Given - Provider: Tracy Bynum RN - Reason: Patient/family refused)0600 (Not Given - Provider: Tracy Bynum RN - Reason: Patient/family refused)1254 (Given - Provider: Pamela Barney RN - Comment: Pt unable to take meds this AM) 0541 (Given - Provider: Tracy Bynum RN)1156 (Given - Provider: Pamela Barney RN) 3 mL, Nebulization, EVERY 6 HOURS SCHEDU LED, First dose (after last modification) on Sat08/08/21 at 0800, Until Discontinued, Routine 1702 (Given - Provider: Pamela Barney RN)2334 (Given - Provider: Tracy Bynum RN) lidocaine (Lidoderm) 5% patch 3 patch(Linked Group 1) 0330 (Not Given - Provider: Osmel Flowers RN - Reason: Patient/family refused) 0330 (Not Given - Provider: Tracy Bynum RN - Reason: Patient/family refused) 0330 (Not Given - Provider: Tracy Bynum RN - Reason: Patient/family refused) 3 patch, Transdermal, EVERY 24 HOURS, Fi rst dose on Sat08/06/21 at 0330, Until Discontinued, Apply patch(es) for 12 hours, and then remove for 12 hours., Routine lidocaine (Lidoderm) topical patch REMOVAL(Linked Grou p 1) 1445 (Patch Not Removed (add comment) - Provider: Alana Nicholson RN - Comment: no patches) 1445 (Patch Not Removed (add comment) - Provider: Pamela Barney RN - Comment: no patches on pt) 1445 (Patch Not Removed (add comment) - Provider: Pamela Barney RN - Comment: No patches on patient) Transdermal, EVERY 24 HOURS, First dose on Sat08/06/21 at 1445, Until Discontinued, Remove lidocaine 5% patch metoprolol tartrate (Lopressor) tablet 25 mg 0808 (Giv en - Provider: Alana Nicholson RN)2034 (Given - Provider: Tracy Bynum RN) 0840 (Not Given - Provider: Pamela Barney RN - Reason: Patient Unable - Comment: Patient too drowsy to take PO meds)1256 (Given - Provider: Pamela Barney RN - Comment: Pt unable to take meds this AM)2021 (Given - Provider: Tracy Bynum RN) 0900 (Not Given - Provider: Pamela Barney RN - Reason: Order parameters not met) 25 mg, Oral, 2 TIMES DAILY, First dose o n 08/07/21 at 0900, Until Discontinued, Hold for systolic blood pressure less than 105 or heart rate less than 55, Routine multivitamin with minerals (Thera M) tablet 1 tablet 0 807 (Given - Provider: Alana Nicholson RN) 0840 (Not Given - Provider: Pamela barrera RN - Reason: Patient Unable - Comment: Patient too drowsy to take PO meds) 0842 (Given - Provider: Pamela Barney RN) 1 tablet, Oral, DAILY, First dose on Sat08/09/21 at 0900, Until Discontinued, Routine polyethylene glycoL (Miralax) packet 17 g 899 (Not Gi merritt - Provider: Alana Nicholson RN - Reason: Patient/family refused)2100 (Not Given - Provider: Tracy Bynum RN - Reason: Patient/family refused) 0851 (Not Given - Provider: Pamela Barney RN - Reason: Patient Unable - Comment: Patient too drowsy to take PO meds)2100 (Not Given - Provider: Tracy Bnyum RN - Reason: Patient/family refused) 0900 (Not Given - Provider: Pamela barrera RN - Reason: Patient/family refused) 17 g, Oral, 2 TIMES DAILY, First dose on 08/06/21 at 0230, Until Discontinued, Routine predniSONE (Deltasone) tablet 10 mg 0808 (Given - Prov ider: Alana Nicholson RN) 0839 (Not Given - Provider: Pamela barrera RN - Reason: Patient Unable - Comment: Patient too drowsy to take PO meds)1256 (Given - Provider: Pamela Barney RN - Comment: Pt unable to take meds this AM) 0842 (Given - Provider: Pamela Barney RN) 10 mg, Oral, DAILY, First dose on Sun at 0900, Until Discontinued, Routine senna-docusate (Pericolace) 8.6-50 mg per tablet 2 tab let 0900 (Not Given - Provider: Alana Nicholson RN - Reason: Patient/family refused)2100 (Not Given - Provider: Tracy Bynum RN - Reason: Patient/family refused) 0840 (Not Given - Provider: Pamela Barney RN - Reason: Patient Unable - Comment: Patient too drowsy to take PO meds)1255 (Given - Provider: Pamela Barney RN - Comment: Pt unable to take meds this AM) 0900 (Not Given - Provider: Pamela barrera RN - Reason: Patient/family refused) 2 tablet, Oral, 2 TIMES DAILY, First dos e on 08/06/21 at 0230, Until Discontinued, Routine 2100 (Not Given - Provider: Tracy Bynum RN - Reason: Patient/family refused) simvastatin (Zocor) tablet 20 mg 1645 (Given - Provider: José Miguel Nicholson RN) 1615 (Given - Provider: Pamela Barney RN) 20 mg, Oral, EVERY EVENING, First dose o n 08/06/21 at 1700, Until Discontinued, Routine sirolimus (Rapamune) tablet 2 mg 0807 (Given - Provider: José Miguel Nicholson RN) 0839 (Not Given - Provider: Pamela Barney RN - Reason: Patient Unable - Comment: Patient too drowsy to take PO meds) 0841 (Given - Provider: Pamela Barney RN) 2 mg, Oral, DAILY, First dose on 07/19 at 0900, Until Discontinued, DO NOT CRUSH OR OPEN, Routine sodium chloride 0.9 % (flush) (BD PosiFlush Normal Lucio ine 0.9) flush 5 mL 0808 (Given - Provider: Alana Nicholson RN)2037 (Given - Provider: Tracy Bynum RN) 0839 (Given - Provider: Pamela Barney RN - Comment: Patient too drowsy to take PO meds)2021 (Given - Provider: Tracy Bynum RN) 0842 (Given - Provider: Pamela Barney RN) 5 mL, Intravenous, 2 TIMES DAILY, First dose on 08/06/21 at 0230, Until Discontinued, Routine thiamine (B-1) 250 mg in sodium chloride 0.9% 52.5 mL 250 mg, Intravenous, DAILY, 3 doses, Fir st dose on Tu08/15/21 at 0900, Last dose on Carine 08/17/21 at 0900, Administer over 30 Minutes, Doses of 100 mg are to be administered as IV push over 5 minutes. Do ses of 200 mg or more should be mixed in 50 mL 0.9% Sodium Chloride and infused over 30 minutes. thiamine (B-1) 500 mg in sodium chloride 0.9% 55 mL (C OMPLETED) 1418 (New Bag - Provider: Alana Nicholson RN)1448 (Stopped - Provider: Alana Nicholson RN)2034 (New Bag - Provider: Tracy Bynum RN)210 (Stopped - Provider: Tracy Bynum RN) 0841 (New Bag - Provider: Pamela dash RN)0911 (Stopped - Provider: Pamela Barney RN)1445 (New Bag - Provider: Pamela Barney RN)1515 (Stopped - Provider: Pamela Barney RN)2022 (New Bag - Provider: Tracy Bynum RN) 0842 (New Bag - Provider: Pamela dash RN)0912 (Stopped - Provider: Pamela Braney RN) 500 mg, Intravenous, 3 TIMES DAILY, 6 do ses, First dose on 08/12/21 at 1500, Last dose on 08/14/21 at 0900, Administer over 30 Minutes, Doses of 100 mg are to be administered as IV push over 5 min 2052 (Sto pped - Provider: Tracy Bynum RN) utes. Doses of 200 mg or more should be mixed in 50 mL 0.9% Sodium Chloride and infused over 30 minutes. thiamine (Vitamin B1) tablet 100 mg (CANCELED) 0808 (G iven - Provider: Alana Nicholson RN) 100 mg, Oral, DAILY, First dose on Sat at 0900, Until Discontinued, Routine PRN Medication Order 08/12/2021 08/13/2021 08/14/2021 bisacodyL (Dulcolax) suppository 10 mg 10 mg, Rectal, DAILY PRN, Starting on Amaral n 08/06/21 at 0127, Until Sat08/14/21 at 1615, Constipation, Administer if needed per patient's routine or if no bowel movement within 48 hours to achieve: (1) One bowel movement every 48 hours, AND (2) without straining. If multiple PRN bowel medications ordered, start with lactulose, then oral bisacodyl, then bisacodyl suppository. Multiple medications may be given concomitantly for constipation., Routine bisacodyl EC (Dulcolax) tablet 10 mg 10 mg, Oral, 2 TIMES DAILY PRN, Starting on 08/06/21 at 0127, Until Sat08/14/21 at 1615, Constipation, DO NOT CRUSH OR OPEN Administer if needed per patient's routine or if no bowel movement with in 48 hours to achieve: (1) One bowel mo vement every 48 hours, AND (2) without straining. If multiple PRN bowel medications ordered, start with lactulose, then oral bisacodyl, then bisacodyl suppository . Multiple medications may be given concomitantly for constipati on., Routine HYDROmorphone (Dilaudid) tablet 1-2 mg 0713 (Given - P rovider: Alana Nicholson RN)1417 (Given - Provider: Alana Nicholson RN)2342 (Given - Provider: Tracy Bynum RN) 0634 (Given - Provider: Tracy Bynum RN) 1-2 mg, Oral, EVERY 4 HOURS PRN, Startin g on 08/08/21 at 1648, Until Sat08/14/21 at 1615, Pain, Mild to moderate pain (1-5) take 1 mg, moderate to severe pain (6-10) take 2 mg, Routine lidocaine (Xylocaine) 1% (10 mg/mL) injection 3 mg 3 mg (0.3 mL), Subcutaneous, ONCE PRN, 1 dose, Starting on 08/06/21 at 0127, Until Sat08/14/21 at 1615, for discomfort with PIV insertion, Routine LORazepam (Ativan) tablet 0.5-1.5 mg (CANCELED) 0808 ( Given - Provider: Alana Nicholson RN)1219 (Given - Provider: Alana Nicholson RN)1645 (Given - Provider: Alana Nicholson RN)2033 (Given - Provider: Tracy Bynum RN) 0045 (Given - Provider: Tracy Bynum RN)0449 (Given - Provider: Tracy Bynum, RN)1615 (Given - Provider: Pamela Barney RN - Comment: Ativan score of 6)2020 (Given - Provider: Tracy Bynum RN) 0.5-1.5 mg, Oral, EVERY 4 HOURS PRN, Sta rting on Sat08/09/21 at 0848, Until Sat08/14/21 at 1141, alcohol/benzodiazepine withdrawal- uncomplicated, ATTENTION: THIS IS LOW DOSE LORAZEPAM Per assessment scale for uncomplicated withdrawal from alcohol. May give IV if unable to take PO. May give IM if no IV access. Medication should be administered at least every 4 hours: For withdrawal score of 5-7, give 0.5 mg PO or IV or IM: administer e very 4 hours. For withdrawal score of 8-10, give 1 mg PO or IV or IM: administer every 4 hours. For withdrawal score of 11 or greater, give 1.5 mg PO or IV or IM: administer every 4 hours. + If wi thdrawal score remains 11 or greater for two consecutive assessment periods, call provider. + If patient has had seizures in previous 8 hours and has gone 4 hours without medications, give 3 mg PO or IV or IM., Routine ondansetron (pf) (Zofran) (2 mg/mL) injection 4 mg 4 mg, Intravenous, EVERY 8 HOURS PRN, St arting on 08/06/21 at 0127, Until Sat08/14/21 at 1615, Nausea, If multiple antiemetics are ordered, use ondansetron first, prochlorperazine second, metoclopramide third. sodium chloride 0.9 % (flush) (BD PosiFlush Normal Saline 0.9) f lush 5-20 mL 5-20 mL, Intravenous, EVERY 1 MIN PRN, S tarting on 08/06/21 at 0127, Until Sat08/14/21 at 1615, flush, Flush pertains to all indwelling lines. Flush per protocol found in the job aid using the link provided on this medication record., Routine traZODone (Desyrel) tablet 50-100 mg 223 (Given - Pro vider: Osmel Flowers RN)2033 (Given - Provider: Tracy Bynum, VIOLA)2341 (Given - Provider: Tracy Bynum RN) 50-100 mg, Oral, NIGHTLY PRN, Starting o n 08/11/21 at 1858, Until Sat08/14/21 at 1615, Sleep, Give 50 mg prn insomnia. Can give additional 50 mg if first ineffective., Routine Linked Groups Order Group 1: lidocaine (Lidoderm) 5% patch 3 patchJump to med 3 patch, Transdermal, EVERY 24 HOURS, Fi rst dose on 08/06/21 at 0330, Until Discontinued
Apply patch(es) for 12 hours, and then remove for 12 hours.
Routine And lidocaine (Lidoderm) topical patch REMOVALJump to med Transdermal, EVERY 24 HOURS, First dose on 08/06/21 at 1445, Until Discontinued
Remove lidocaine 5% patch
documented in this encounter Care Teams Game Show Host Relationship Specialty Start Date End Date Magdalene Lin PA PCP - General 09/05/[address] [place] [id number] documented as of this encounter
--- OUTSIDE RECORDS SUMMARY | 2022-02-10 06:08 | XMS_ITS | Encounter Summary ---
:1960 [place] [address] Care Team Providers Name Role Phone Magdalene Lin Primary Care Provider [phone] Reason for Visit Auth/Cert Specialty Diagnoses / Procedures Referred By Contact Refer red To Contact Diagnoses Hip fracture hip fx Procedures emergency ipi Referral ID Status Reason Start Date Expiration Date Visits Requ ested Visits Authorized [id number] 1 1 Encounter Details Date Type Department Care Team Description 08/06/2021 Anesthesia Event Main Operating Room Jeremias Desir MD [facility] [place] [address] [facility] Farooq Moore MD [facility] [place] [address] [place] [address] Anesthesia Record Procedure Summary Procedure Name Responsible Anesthesia Start Anesthesia Stop Anesthesiologist Time Time TOTAL HIP ARTHROPLASTY Jeremias Luna MD 08/06/21 0842 1105 - POSTERIOR (WRVU 20.72) (Right Hip) Events Date Time Event Comment 08/06/2021 0842 AN Verify 0842 Start 0842 An Start Data 0855 Spinal 0900 Anesthesia Ready 0923 Procedure Start 1052 1105 an stop data 1105 Recovery or ICU Handoff Patient care was transferred to the destination unit staff after review of the patient's medica l history, current anesthetic/surgi maycol status and plan, according to the Provider Handoff Checklist. 1105 Stop Name Total Midazolam 1 mg fentaNYL 25 mcg Propofol INF 206 mg ceFAZolin 2 g BUpivacaine 0.5% 2.5 mL Tranexamic Acid 600 mg Lactated Ringers 350 mL Agents Name O2 Air N2O Blood No blood administrations on file. Lines, Drains, and Airways Type Details Placement Removal Incision 08/06/21; 0926; Right, 08/06/21 0926 by lateral, posterior; hip Emeli Byrnes, VIOLA PIV 08/05/21; 0000; median 08/05/21 0000 by 08/06/21 1733 by cubital vein Kelsy Kearney McClary, Amanda B, (antecubital fossa), RN RN left; OSH; catheter/device intact, site care per policy/procedure, removed per policy/procedure; 08/06/21; 1733 Urethral Catheter 08/05/21; 0000; 08/05/21 0000 by 08/07/21 1600 by Immobility without Kelsy Kearney Delany, Teresa A, RN alternative; present on spray mixer to this facility; drainage bag to dependent drainage; 08/07/21; 1600 documented in this encounter Social History Tobacco Use Types Packs/Day Years [...] on file documented as of this encounter OR Notes Anesthesia Postprocedure Evaluation - Parveen Motta MD - 08/06/2021 11:05 AM EDT Department of Anesthesiology Post-procedure Note Patient: Paradise Abel Procedure Summary Date: 08/06/21 Room / Location: [facility] OR [address] [place] [address] MAIN OR Anesthesia Start: 841 Anesthesia Stop: Procedures: TOTAL HIP ARTHROPLASTY - POSTERIOR (WRVU 20.72) (Right Hip) MODIFIER,QUADRA C (CEMENTED) TAMELA HIP STEM,MEDACTA (Right Hip) Diagnosis: (Right femoral neck fracture) Surgeons: Dusty Peterson MD Responsible Provider: Jeremias Luna MD Anesthesia Type: spinal ASA Status: 3 All Anesthesia Providers: Anesthesiologist: Jeremias Luna MD Manager Registration: Farooq Moore MD; Parveen Motta MD Vitals Value Taken Time BP Temp Pulse Resp SpO2 Pain Level Patient Location: PACU/[facility] Level of Consciousness: Awake and Alert Pain Management: Satisfactory Analgesia PONV: None Cardiovascular Status: At Baseline and Hemodynamically Stable Respiratory Status: At Baseline, Room Air and Supplemental O2 (NC or FM) Postoperative Fluid Status: Intravascular EUvolemia Possible Anesthetic Complications: NONE apparent at time of evaluation Final Primary Anesthesia Type: Spinal (The anesthetic type performed was the same as planned.) Comments: Parveen Motta MD Anesthesia Procedure Notes - Parveen Motta MD - 08/06/2021 9:13 AM EDT Associated Order(s): Neuraxial Block Procedure: Neuraxial Block Primary Anesthetic Type: Spinal The patient was greeted. The sedation plan, its benefits, risks and alternatives were discussed withthe patient. The patient has consented to the procedure. The medical history and chart were reviewed. The timeout was performed. Start time: 08/06/2021 8:45 AM End time: 08/06/2021 8:50 AM Patient Location: Operating Room Patient Prep Position: Right lateral decubitus Prep: Hand Hygiene, Hat, Mask, Sterile Gloves, Chlorhexidine and Patient Draped Injection technique: single-shot Skin Anesthetic Lidocaine 1% 3 ml Procedure Technique Level of needle insertion: L3-4 Needle approach: midline Needle Type: Alonso Gauge: 20 or 25 Needle length: 3.5 in Number of attempts: 1 Medications: Date/Time: 08/06/2021 8:45 AM BUpivacaine 0.5% - Intrathecal 2.5 mL - 08/06/2021 8:45:00 AM Events/Notes Events: None Resident/GLASSBLOWER: Parveen Motta MD Second Resident/GLASSBLOWER: SRNA: Fellow: Attending Physician: Jeremias Luna MD ~~~~~~~~~~~~~~~~~~~~~~~~~~~~~~~~~~~~~~~~~~~~~~~~~~~~~~~~~~~~ Anesthesia Preprocedure Evaluation - Jeremias Luna MD - 08/06/2021 7:29 AM EDT Pre-Anesthesia Evaluation for: Paradise Abel a 60 y.o. female. Procedure(s): TOTAL HIP ARTHROPLASTY - POSTERIOR (WRVU 20.72) MODIFIER,QUADRA C (CEMENTED) TAMELA HIP STEM,MEDACTA Patient Active Problem List Diagnosis Date Noted ??? Right femoral neck fracture 08/05/21 08/06/2021 ??? Severe protein-calorie malnutrition 06/29/2020 ??? Hypoxia 06/28/2020 ??? Acute blood loss anemia 11/20/2018 ??? Chronic respiratory failure with hypoxia 11/20/2018 ??? Hypotension 11/18/2018 ??? Chest pain 09/25/2018 Past Medical History: Diagnosis Date ??? Angiomyolipoma of left kidney ??? Carpal tunnel syndrome ??? Clear cell carcinoma of kidney, right ??? HTN (hypertension) ??? Hyperlipidemia ??? Lymphangioleiomyomatosis Past Surgical History: Procedure Laterality Date ??? KIDNEY REMOVAL Right ??? PRO UPPER GI ENDOSCOPY, DIAGNOSTIC N/A 11/19/2018 EGD, UPPER GI ENDOSCOPY performed by Sandor Dasilva MD at [facility] END[facility] Social History Tobacco Use ??? Smoking status: Never Smoker ??? Smokeless tobacco: Never Used Substance Use Topics ??? Alcohol use: Yes Alcohol/week: 1.0 - 3.0 standard drink Types: 1 - 3 Glasses of wine per week Comment: Difficult to assess Social History Substance and Sexual Activity Drug Use Never Allergies Allergen Reactions ??? Hymenoptera Allergenic Extract Anaphylaxis Medications: MAR and/or home medications have been reviewed. Physical Exam: Preprocedure Vitals Current as of 08/06/21 0729 BP: 135/71 Pulse: 97 Resp: 16 SpO2: 92 Temp: 36.8 ??C (98.2 ??F) Height: Weight: BMI: IBW: 45.5 kg (100 lb 4.4 oz) Last edited 08/06/21318 by Airway Assessment: Mallampati: II TM distance: >3 FB Neck ROM: full Cardiovascular Assessment: Rhythm: regular Pulmonary Assessment: (+) decreased breath sounds Dental Assessment: - normal exam Misc Assessment: Patient is wearing No contact(s). IV access: Peripheral line Last Filed Perioperative Cognitive Screening None Anesthesia Plan: ASA 3 spinal, with a(n) intravenous induction PRELIMINARY NOTE PER CHART REVIEW (Prior to Patient Exam): Paradise Abel is a 60 y.o. female with a hx significant for lymphangioleiomyomatosis on [id number] O2, HTN, HLD, angiomyolipoma of kidney s/p nephrectomy who was admitted for hip fracture presenting for the following procedure(s): Procedure(s): TOTAL HIP ARTHROPLASTY - POSTERIOR (WRVU 20.72) MODIFIER,QUADRA C (CEMENTED) TAMELA HIP STEM,MEDACTA Allergies: -- Hymenoptera Allergenic Extract -- Anaphylaxis Anesthesia Hx: Grade 2 view with mac 3 blade in 2003. NPO status: adequate EKG 06/28/20: Sinus tachycardia Otherwise normal ECG When compared with ECG of 28-JUN-2020 07:30, No significant change was found Labs: 08/06/21353 WBC 8.3 HGB 12.4 HCT 37.7 PLATELET 187 08/06/21 035 NA 137 K 3.4* CL 97* CO2 28 BUN 21* CREATININE 0.58* No results for input(s): AST, ALT, ALKPHOS, BILITOT, BILIDIR in the last 7068 hours. 08/06/21 035 PT 10.2 INR 0.9 PTT 26 Lab Results Component Value Date ABORH O Pos 08/06/2021 Plan is for spinal (GA with ETT backup), standard ASA monitors, and adequate IV access. Farooq Moore MD PGY4 (CA-3), Dredge Operator Pager #[phone] Region - Other Informed Consent: Anesthetic plan and risks discussed with patient. Plan discussed with resident and attending. Anesthesia Screening documented in this encounter Miscellaneous Notes Addendum Note - Parveen Motta MD - 08/07/2021 8:58 AM EDT Addendum created 08/07/21 0858 by Parveen Motta MD Intraprocedure Meds edited documented in this encounter Plan of Treatment Not on filedocumented as of this encounter Procedures Procedure Name Priority Date/Time Associated Diagnosis Comme nts ANE NEURAXIAL APS Routine 08/06/2021 8:45 AM Resu lts for this USE EDT procedure are i n the results section. documented in this encounter Results Neuraxial Block (08/06/2021 8:45 AM EDT) Narrative Jeremias Luna MD - 08/06/2021 8:45 AM EDT Parveen Motta MD ? 08/06/2021 ??9:16 AM Procedure: ?? Neuraxial Block Primary Anesthetic Type: Spinal The patient was greeted. The sedation pl an, its benefits, risks and alternatives were discussed with the pat ient. ??The patient has consented to the procedure. ??The medical history and chart were reviewed. ??The timeout was performed. Start time: 08/06/2021 8:45 AM End time: 08/06/2021 8:50 AM Patient Location: Operating Room Patient Prep Position: Right lateral decubitus Prep: Hand Hygiene, Hat, Mask, Sterile G loves, Chlorhexidine and Patient Draped Injection technique: single-shot Skin Anesthetic Lidocaine 1% ??3 ml Procedure Technique Level of needle insertion: L3-4 Needle approach: midline Needle Type: [employer] Gauge: 20 or 25 Needle length: 3.5 in Number of attempts: 1 Medications: Date/Time: ??08/06/2021 8:45 AM BUpivacaine 0.5% - Intrathecal 2.5 mL - 08/06/2021 8:45:00 AM Events/Notes Events: ??None Resident/GLASSBLOWER: ? Parveen Laird MD Second Resident/GLASSBLOWER: SRNA: ? Fellow: ? Attending Physician: ? St arun Luna MD ~~~~~~~~~~~~~~~~~~~~~~~~~~~~~~~~~~~~~~~~ ~~~~~~~~~~~~~~~~~~~~ Jeremias Luna MD PRODUCT ACCOUNTANT [facility] documented in this encounter Visit Diagnoses Not on filedocumented in this encounter Administered Medications Inactive Administered Medications - up to 3 most recent administrations Medication Order MAR Action Action Date Dose Rate Site BUpivacaine (pf) (Marcaine) (5 Given 08/06/2021 8:45 AM EDT 2.5 mLs mg/mL) 0.5% injection Intrathecal, Starting on 08/06/21 at 0845, Until 08/06/21 at 0845, Anesthesia Intra-op, Routine ceFAZolin (Ancef) 1 g in dextrose 5% 50 mL Given 08/06/2021 9:13 AM EDT 2 g infusion Intravenous, PRN, Starting on 08/06/21 at 0913, Until 08/06/21 at 1105, Administer over 30 Minutes, Anesthesia Intra-op fentaNYL (pf) (50 mcg/mL) multi-dose Given 08/06/2021 8:47 AM ED T 25 mcg injection Intravenous, PRN, Starting on 08/06/21 at 0847, Until 08/06/21 at 1105, Anesthesia Intra-op, Routine lactated ringers infusion New Bag 08/06/2021 8:42 AM EDT Intravenous, CONTINUOUS PRN, Starting on 08/06/21 at 0842, Until 08/06/21 at 1105, Anesthesia Intra-op midazolam (pf) (Versed) (1 mg/mL) multi-dose Given 08/06/2021 8: 45 AM EDT 1 mg injection Intravenous, PRN, Starting on 08/06/21 at 0845, Until 08/06/21 at 1105, Anesthesia Intra-op, Routine propofoL (Diprivan) (10 Rate/Dose 08/06/2021 10:37 20 mcg/kg/min 4.8 mL/hr mg/mL) infusion Change AM EDT Intravenous, CONTINUOUS PRN, Starting on 08/06/21 at 0900, Until 08/06/21 at 1105, Anesthesia Intra-op, Routine Rate/Dose Change 08/06/2021 9:13 AM EDT 50 mcg/kg/min 12 mL/hr New Bag 08/06/2021 9:00 AM EDT 30 mcg/kg/min 7.2 mL/hr tranexamic acid (Cyklokapron) (100 mg/mL) IV Given 9:25 AM EDT 600 mg bolus Intravenous, PRN, Starting on 08/06/21 at 0925, Until 08/06/21 at 1105, Anesthesia Intra-op, Routine documented in this encounter Care Teams Paleobotanist Relationship Specialty Start Date End Date Magdalene Lin PA PCP - General 09/05/[address] [place] [address] documented as of this encounter
--- OUTSIDE RECORDS SUMMARY | 2022-02-10 06:09 | XMS_ITS | Encounter Summary ---
:1960 [place] [address] Care Team Providers Name Role Phone Magdalene Lin Primary Care Provider [phone] Encounter Details Date Type Department Care Team Description 02/02/2020 Ancillary Procedure Radiology Library at [facility] MEKA Simmons MD [facility] [place] [address] [place] [address] PULMONARY MEDICINE [phone] [place], [place] [address] (Wo rk) Social History Tobacco Use Types Packs/Day Years Used Date Never Smoker Smokeless Tobacco: Never Used Alcohol Use Standard Drinks/Week Comments Yes 1 (1 standard drink = 0.6 oz pure alcoho l) Sex Assigned at Date Recorded Not on file documented as of this encounter Plan of Treatment Not on filedocumented as of this encounter Procedures Procedure Name Priority Date/Time Associated Diagnosis Comme nts FILM LIBRARY Routine 02/02/2020 12:00 AM Results for this STORAGE ONLY DX EDT procedure ar e in CHEST the results section. documented in this encounter Results Film Library- Storage Only DX Chest (02/02/2020 12:00 AM EDT) Specimen (Source) Anatomical Location Collection Method / Collectio n Time Received Time / Laterality Volume Narrative RAD - 06/27/2020 10:22 PM EST This exam is auto-finalizing. It's purpo se is for storage only. Fernando Delarosa Jr., MD Sarah FILM LIBRARY ORDERABLES Performing Organization Address City/State/ZIP Code Phon e Number [facility] [place] documented in this encounter Visit Diagnoses Not on filedocumented in this encounter Care Teams Patient Intake Coordinator Relationship Specialty Start Date End Date Magdalene Lin PA PCP - General 09/05/[address] [place] [address] documented as of this encounter
--- OUTSIDE RECORDS SUMMARY | 2022-02-10 06:09 | XMS_ITS | Encounter Summary ---
:1960 Author Organization [facility] [place] [address] Care Team Providers Name Role Phone Magdalene Lin Primary Care Provider [phone] Encounter Details Date Type Department Care Team Description 08/05/2021 Ancillary Procedure Radiology Library at [facility] FRANCE Argueta [facility] [address] [place] [address] [place] [address] [phone] (Wo rk) Social History Tobacco Use Types [...] Associated Diagnosis Comme nts FILM LIBRARY Routine 08/05/2021 8:00 PM Results f or this STORAGE ONLY CT EDT procedure ar e in ABDOMEN AND PELVIS the resul ts section. documented in this encounter Results Film Library- Storage Only CT Abdomen & Pelvis (08/05/2021 8:00 PM EDT) Specimen (Source) Anatomical Location Collection Method / Collectio n Time Received Time / Laterality Volume Narrative RAD - 08/05/2021 8:00 PM EDT This exam is auto-finalizing. It's purpo se is for storage only. Magdalene HOUGH IMG FILM LIBRARY ORDERA BLES Performing Organization Address City/State/ZIP Code Phon e Number RAD [place], [place] documented in this encounter Visit Diagnoses Not on filedocumented in this encounter Care Teams Bun Icer Relationship Specialty Start Date End Date Magdalene Lin PA PCP - General 09/05/[address] [place] [address] documented as of this encounter
--- OUTSIDE RECORDS SUMMARY | 2022-02-10 06:09 | XMS_ITS | Encounter Summary ---
:1960 Author Organization [facility] [place] [address] Care Team Providers Name Role Phone Magdalene Lin Primary Care Provider [phone] Reason for Visit Auth/Cert Specialty Diagnoses / Procedures Referred By Contact Refer red To Contact Diagnoses Hypoxia resp failure Procedures EMERGENCY IPI Referral ID Status Reason Start Date Expiration Date Visits Requ ested Visits Authorized [id number] 1 1 Encounter Details Date Type Department Care Team Description 06/28/2020 - Hospital Encounter [facility] 2 Fernando Lam Jr., MD [facility] [place] [address] Chest pain, unspecified type; 07/01/2020 [facility] Misbah Ward MD [facility] [place] [address] Chronic respiratory failure with hypoxia ; Drive [place] Severe protein- calorie malnutrition; [id number] Asthma, unspecified asthma s everity, unspecified whether complicated, unspecified whether persistent [phone] Social History Tobacco Use Types Packs/Day Years [...] Sign Reading Time Taken Comments Blood Pressure 104/69 07/01/2020 2:13 PM EST Pulse 83 06/30/2020 8:36 AM EST Temperature 36.8 ??C (98.2 ??F) 07/01/2020 11:11 AM EST Respiratory Rate 18 07/01/2020 11:11 AM EST Oxygen Saturation 96% 07/01/2020 11:11 AM EST Inhaled Oxygen Concentration - - Weight 41 kg (90 lb 6.2 oz) 06/28/2020 2:28 AM EST Height 158 cm (5' 2.21) 06/28/2020 5:00 AM EST Body Mass Index 16.42 06/28/2020 2:28 AM EST documented in this encounter Discharge Summaries Kannan Schuster MD - 07/01/2020 8:12 AM EST Discharge Summary Patient Name: Ricky Abel Patient Age: 59 y.o. Birthdate: 1960 Admit date: 06/28/2020 Discharge date and time: 07/01/2020 Attending Physician: Misbah Ward MD Follow-up Recommendations for Providers: Pulmonary: - Discharged with 40 mg prednisone x7 days, 30 mg x 7 days, 20 mg x 7 days. Please ensure patient follows up with x ray inspector to complete the taper. If remain on > than 20 mg for more than this course recommend starting Bactrim for PJP prophylaxis. -Patient still doesn't have full prescription coverage for all of her inhalers. She has a rescue inhaler from her inpatient stay. She is taking a triple therapy sample she was provided with at her mostrecent pulmonary appointment. As she cannot afford further long acting inhalers she has been supplied with a nebulizer and a 2 week supply of duonebs with 1 refill for as needed use. Primary Care: - Patient's goal is to get a lung transplant, please support patient's social needs (etoh use/grief/financial needs) so she may be eligible. Would avoid benzos and opioids. - may need ongoing social work and case management support as an outpatient to help attain goal of transplant. Discharge Diagnoses (Hospital Problems) and Secondary Diagnoses (Chronic Problems): Active Hospital Problems Diagnosis ??? Severe protein-calorie malnutrition ??? Hypoxia Resolved Hospital Problems No resolved problems to display. Procedures/Studies: none (see full report below) History of Presentation (per 06/28/2020 admission H&P): Ricky Abel is a 59 y.o. female with PMH of FOLEY (lymphangioleiomyomatosis), HTN, HLD, angiomyolipoma of kidney, renal carcinoma, who presents with hypoxic, hypercarbic respiratory failure. Patient with FOLEY on baseline 6L via NC home O2 on sirolimus 2mg daily, called EMS today for increased WOB, found to be hypoxic to the 70s on her home O2 regimen. Presented to [facility] where acidoticand hypercarbic. Started on BiPAP 14/8 at 65%. WBC 26. Patient reportedly had significant anxiety requiring ativan 0. 5mg and then 1 mg. Rapid COVID was negative. Hospital Course: Ricky Abel was admitted to the MICU service with the above presentation. During the course ofhospital admission, the following medical issues were diagnosed and treated as follows: #Acute hypoxemic and hypercarbic respiratory failure #Lymphangioleiomyomatosis, end stage Pt was admitted to the ICU with hypoxemic and hypercarbic resp failure in the background of known pulmonary FOLEY on a baseline of 6LNC at home and 2mg of PO sirolimus at home. She follows with outpatient Pulmonology Dr. Kim Sharma at [place] ([facility] pul[facility]), pt has a known FEV1 of 19% in 2019 and DLCO 24%. She has previously followed in FOLEY clinic at [facility] as well as [facility] but has not had a prior transplant evaluation due to lack of insurance. In addition, due to lack of insurance,the pt has not had access to her regular inhalers and sirolimus for >1 month. On admission, the pt was placed on BIPAP and started on azithromycin, solumedrol, and restarted on sirolimus. She was ult imately able to be weaned off bipap and she was on high-dose Precedex with bilateral and equal air entry. She also did not have any evidence of volume overload on exam. RVP and COVID were negative. Pt was thought to likely have an acute exacerbation in the background of pulmonary FOLEY as opposed to primary worsening/exacerbation of FOLEY. The fact that she has missed her home meds for over a month likely leads to poor airway clearance and feelings of central airway obstruction that were resolved with positive pressure from NIV and sycnhronized breathing and effective exhalation once anxiolytics were given. Again, her outpatient pulm Dr. Sharma indicated that transplant evaluation was needed due to hersevere end stage lung disease but she has had multiple barriers toward this, as above. Noncon CT chest on 06/28/20 showed no focal consolidation, small pericardial effusion anteriorly, and chronic findings of FOLEY unchanged, study was motion degraded. Once patient was stabilized she was transferred to floor status where azithromycin was discontinued and she was transitioned from IV solumedrol to PO prednisone. Pulmonary medicine was consulted to help with steroid taper and optomization of home inhalers and medications for her FOLEY this was complicated by her lack of insurance. Patient's oxygen requirement improved to 2L NC (2-4L baseline at home). Patient was discharged on a prednisone taper (with 21 day supply of medications) and will follow-up with her x ray inspector regarding length of total taper and for further steroid prescriptions #ETOH use d/o Patient also has a history of significant alcohol use up to a bottle of wine every day. Her VS showed evidence of withdrawal so she was started on phenobarbital protocol in the ICU and completed her last reynoso on the day of discharge. Patient met with the behavioral intervention team who helped her cope with the recent of her and provided resources for ongoing sobriety management. Important Studies and Lab Data: Recent Labs 07/01/20 0604 06/29/203 06/28/20 0300 WBC 9.8* 10.7* 24.0* HGB 12.4 12.0 12.3 PLATELET 300 344 413* Recent Labs 07/01/20 0604 06/29/203 06/28/20 0300 NA 137 137 138 K 3.0* 4.4 Not Perf CL 96* 98 99 CO2 34* 29 28 BUN 16 20* 24* CREATININE 0.46* 0.54* 0.52* GLUCOSE 84 123 117 Recent Labs 07/01/20 0604 06/29/20 0223 06/28/20 0300 CALCIUM 9.3 8.7 8.9 MAGNESIUM -- -- 0.92 PHOS -- -- 4.9* No results for input(s): CK, TROPONINT in the last 168 hours. No results for input(s): AST, ALT, ALKPHOS, BILITOT, BILIDIR in the last 168 hours. Recent Labs 06/28/20 0300 INR 0.9 No results for input(s): HA1C in the last 7068 hours. Microbiology: Microbiology Results (Last 30 days) Procedure Component Value Units Date/Time Respiratory Panel PCR [[id number]] Collected: 06/28/20 1410 Lab Status: Final result Specimen: Nasopharyngeal Swab Updated: 06/28/20 1537 Resp Panel Source [employer]IPMENT [employer]UMBING SUPERVISOR Swab Resp Panel PCR Negative Comment: Respiratory Panels are performed on the [employer], using multiplexed PCR nucleic acid detection. Negative results do not preclude respiratory infection and should not be used as the sole basis for diagnosis, treatment or other management decisions. Adenovirus Not Detected Coronavirus HKU1 Not Detected Coronavirus NL63 Not Detected Coronavirus 229E Not Detected Coronavirus OC43 Not Detected SARS-CoV-2 Not Detected Comment: Testing for SARS-CoV-2 (Severe acute respiratory syndrome coronavirus 2) to aid in the diagnosis of COVID-19 is performed using the BioFire Respiratory Panel 2.1 (My Point...Exactly) as authorized by the FDA issued Emergency Use Authorization (EUA). This panel also tests for multiple other viral and bacterial pathogens. This assay is intended for In-vitro Diagnostic (IVD) use with nasopharyngeal swabs in viral transport media. The assay is performed based on the instructions for use and additional guidance provided by the FDA. Testing is performed in laboratories within the [facility], each of which is certified under the Clinical Laboratory Improvement Amendments of 1988 (CLIA), 42 U.S.C. section 263a, to perform high-complexity tests. Assay performance has been verified according to clinical laboratory regulatory requirements. The test result for SARS-CoV-2 provided above should be interpreted in combination with the clinical observation, patient history and epidemiological information. For testing of asymptomatic individuals, assay performance characteristics and clinical utility have not been evaluated. A result of Not Detected indicates that the viral RNA target is not present but does not preclude SARS-CoV-2 infection. False negative results may occur if a specimen is improperly collected, transported or handled; if amplification inhibitors are present; or if inadequate numbers of viral particles are present in the specimen. When a diagnostic test is negative, the possibility of a false negative result should be considered in the context of a patient???s recent exposures and the presence of clinical signs and symptoms consistent with COVID-19. A result of Detected suggests a current or recent infection. Positive and negative predictive values for this test are dependent on disease prevalence. A result of Invalid indicates the inability to conclusively determine the presence or absence of SARS-CoV-2 RNA in the sample which can be due to a variety of factors. Collection of a new sample for repeat testing is recommended in the case of an invalid result. CDC COVID-19 criteria for testing on human specimens and clinical management guidance information are available at the CDC Coronavirus Disease 2019 (COVID-19) webpage under Information for Healthcare Professionals (https://www.cdc.gov/coronavirus/2019-ncov/hcp/index.html). Additional information about this and other EUA tests can be found in provider and patient fact sheets at the following FDA website: https://www.fda.gov/medical-devices/ufjmhvysqlc-rqsgocw-6037-dkqxw-07-axfhjfqju- ejb-yzyxibbuqfktpw-ippfxea-devices/xcfoo-lstynntefyc-jkay Human Metapneumovirus Not Detected Human Rhino/Enterovirus Not Detected Influenza A Not Detected Influenza B Not Detected Parainfluenza 1 Not Detected Parainfluenza 2 Not Detected Parainfluenza 3 Not Detected Parainfluenza 4 Not Detected Respiratory Syncytial Virus Not Detected Chlamydophila pneumoniae Not Detected Mycoplasma pneumoniae Not Detected COVID-19 PCR [[id number]] Collected: 06/28/20 0531 Lab Status: Final result Specimen: Nasopharyngeal Swab Updated: 06/28/20 0800 Rapid SARS-CoV-2 RNA Not Detected Comment: This result should be [...] using the Simplexa COVID-19 Direct Assay by [employer] as authorized by the FDA issued Emergency [...] Department of Pathology and Laboratory Medicine at [facility], certified under the Clinical Laboratory Improvement Amendments [...] fact sheets at the following FDA website: https://www.fda.gov/medical-devices/jdhevwwokgw-lwhznzv-6571-xilgq-51-xevolpynx- irj-wguqggnvrwiecn-ufanehz-devices/qwyen-zmtrtuilagc-xwzt SARS-CoV-2 Source [employer]UM[employer]ING SUPERVISOR Swab Imaging and other studies: Results for orders placed or performed during the hospital encounter of 06/28/20 XR Chest One View (Exam End: 06/28/2020 4:14 AM) Impression Diffuse reticular opacities suggestive of interstitial process such as atypical infection or fibrosis. Background lymphangioleiomyomatosis. Preliminary report signed by: Malinda Coreas at 06/28/2020 4:54 AM I have personally reviewed the image(s) and the resident's interpretation and agree with the findings, Facundo Alvarze MD at 06/28/2020 5:35 AM Thank you for letting us participate in the care of this patient. For questions regarding this report, please contact the number below. Electronically signed by: Facundo Alvarez MD, [facility] ([phone]), at 06/28/2020 5:[address] Chest wo Contrast (Generic) (Exam End: 06/28/2020 7:55 PM) Impression 1. Motion degraded study. 2. Grossly no focal consolidation. 3. Small to moderate-sized pericardial effusion anteriorly. 4. Chronic findings of FOLEY throughout both lungs are unchanged. Preliminary report signed by: Umang Meghan at 06/28/2020 8:24 PM I have personally reviewed the image(s) and the resident's interpretation and agree with the findings, Flaca Glover MD at 06/28/2020 9:08 PM Thank you for letting us participate in the care of this patient. For questions regarding this report, please contact the number below. Electronically signed by: Flaca Glover MD, [facility] ([phone]), at 06/28/2020 9:08 PM Pending Studies and Lab Data: The patient will need the following test completed on: 06/27/2020 1. Request for Blood Gas Draw (Leb/CGP) Diagnosis: Authorizing Provider: Misbah Ward MD Discharge Conditions/Prognosis: Stable Discharge to: Home Discharge Medications: Your Medications New Medications Dose Details ipratropium-albuteroL 0.5 mg-3 mg(2.5 mg base)/3 mL Nebu Commonly known as: DUONEB Take 0.5 mg by nebulization 4 times daily as needed (shortness of breath) for up to 28 days. 3 mL Quantity: 2 Box Refills: 1 omeprazole 20 mg Tbec Commonly known as: PriLOSEC OTC Take 1 tablet by mouth daily for 60 days. 20 mg Quantity: 30 tablet Refills: 1 predniSONE 20 mg Tab Commonly known as: Deltasone Take 2 tablets by mouth daily for 6 days, THEN 1.5 tablets daily for 7 days, THEN 1 tablet daily for7 days. Start taking on: July 02, 2020 Quantity: 30 tablet Refills: 0 Continued medications, unchanged Dose Details CIS FREE TEXT MED 1 Puff(s), Inh, Q4-6H,PRN Refills: 0 furosemide 40 mg Tab Commonly known as: Lasix Take 1 tablet by mouth daily. 40 mg Refills: 0 metoprolol tartrate 25 mg Tab Commonly known as: Lopressor Take 1 tablet by mouth 2 times daily. 25 mg Quantity: 180 tablet Refills: 0 multivitamin Tab Commonly known as: THERAGRAN Take 1 tablet by mouth daily. 1 tablet Quantity: 30 tablet Refills: 12 sertraline 100 mg Tab Commonly known as: ZOLOFT Take 100 mg by mouth daily. 100 mg Refills: 0 simvastatin 20 mg Tab Commonly known as: Zocor Take 20 mg by mouth daily. 20 mg Refills: 1 Sirolimus 2 mg Tab Take 2 mg by mouth daily. 2 mg Refills: 1 traZODone 50 mg Tab Commonly known as: Desyrel Take 50 mg by mouth nightly. 50 mg Refills: 0 STOPPED Medications pantoprazole EC 20 mg Tbec Commonly known as: Protonix Updated Allergies/ADRs: Allergies Allergen Reactions ??? Hymenoptera Allergenic Extract Anaphylaxis Future Appointments and Orders Future Orders Complete By Expires Nebulizer (Outpatient) [EQ179 Custom] As directed Process Instructions: Scheduling Instructions: Comments: Ricky Abel/ 10-31-1961/ [address], [place] [employer] MANAGED MEDICARE ID NUMBER# [id number] [facility]-J45.909 Make/Model Serial Number ___X__(1) Nebulizer compressor ([id number]), (1) Aerosol Mask (A7015), (1) Disposable Neb (A7004), (1) Non-Disp Neb (A7005) _ Length of Need: Lifetime Medication & Frequency of treatment__Ipratropium/Albuterol 4 times a day as needed. Physician's Signature: electronic Date: 07/01/2020 THERON: Printed Physician Name:Jessie Piña MD NOTE: DOCUMENTING FACE TO FACE BY , DARI, OR PA IS REQUIRED INCLUDING PT'S SYMPTOMS. face to face PATIENT OR CAREGIVER IS REQUIRED TO SIGN DELIVERY TICKET UPON RECEIPT. Date: Pt or Caregiver Relationship Questions: Vendor Name/Contact information: [facility] Referral to Home Health - at DISCHARGE [[id number] CPT(R)] As directed Process Instructions: Scheduling Instructions: Comments: DOCUMENTATION FOR VNA SERVICES (INCLUDING THOSE PATIENTS WITH MEDICARE COVERAGE REQUIRING HOME VNA SERVICES AND/OR HOSPICE SERVICES) PATIENT'S LOCATION: Ricky Kellie Abel [address] [place] [address] Cell: Telephone Information: Liquefaction Plant Operator's Name: self In discussion with the attending physician, it is certified that this patient is under their care and that they, or a Nurse Practitioner,Clinical Nurse specialist or Physician Certified Massage Therapist who is working directly with them, had a face to face encounter that meets the physician face to face encounter requirements with this patient on 07/01/2020 The encounter with the patient was in whole, or in part, for the following medical condition, which is the primary reason for home health care services: acute hypoxic and hypercarbic respiratory failure due to pulmonary FOLEY complicated by asthma In discussion with the provider, it is certified that, based on their findings, the following services are medically necessary for home health services. To provide the following care/treatments with the clinical findings supporting the need for servicesas follows: HOME CARE ORDERS: RN ORDERS: Assess vital signs, cardiopulmonary status, nutrition, hydration, elimination, meds effectiveness and management; reinforce education re health issues PT ORDERS: Continue rehab for endurance, gait stability and strength with mobility and transfers. Home safety evaluation. Home exercise program if appropriate. mesh worker: assist with Medicaid process and help utilize resources in her area. HOME HEALTH CARE AGENCY: [facility] in [place], [place] and [phone] Start of care: 24- 48 hours after discharge FOR MEDICARE ONLY: (please delete this section if not Medicare) In discussion with the attending physician, it is certified that the clinical findings support that this patient is homebound because absences from home require considerable and taxing effort due to: Medically contraindicated due to signifcant pulmonary disease requiring high levels of supplemental oxygen that is not portable outside of the home for extended periods of time. Please note that any additional orders needs or changes will need to be obtained from this patient'sPCP: FRANCE Chen [address] [place] / [place] [address] All A agencies which cover the area of patient's residence have been reviewed, either verbally or in writing, and patient/family have chosen the home health care agency noted Questions: Agency name and contact information: [facility] Patient location post discharge: [facility] What services are requested: Registered Nurse Physical Therapy Social Work Start date: Responsible MD post discharge contact info: PCP General Instructions Substance Use Treatment and Relapse Prevention Resources Residential Treatment: [facility] [address] [facility] [id number] [phone] YOU ARE SCHEDULED FOR A FOLLOW UP APPOINTMENT WITH DR SHARMA, YOUR SENIOR BENEFITS MANAGER ON 07/15/2020 AT 8:15AM [facility] [address] [place] [address] Individual Counseling: [facility] [address] [facility] [address] Dorothy Martinez, [facility] [place] [address] [facility] [address] You may also search www.psychologyTrue&Coday.Carte Blanche or [employer] for therapists in your area. Peer Support Groups Alcoholics Anonymous (AA) [place]: , www.nhaa.net Narcotics Anonymous (NA) [place]: , www.gsana.org Online AA and NA Meetings AA, NA, Refuge Recovery, SMART Recovery www.MVERSE AA Video Meetings www.aa-intergroup.org/directory_audio-video.php AA Text Chat Meetings www.aa.intergroup.org/directory.php NA Video Meetings www.virtual-na.org/meetings NA Text Chat Meetings Www.neveraloneclub.org SMART Recovery Meetings via Zoom 5:00-6:00pm, free and open to all To join Zoom meetin. Visit www.[employer] Military 2. Click on calendar on top of toolbar 3. Find the correct meeting date and time 4. Click the zoom link and enter password provided 211: The Doorway to Recovery [facility] will direct you to the help you need, from screening and evaluation, to treatment including medication-assisted treatment, to long-term recovery supports. [facility] will also help guide you on the path to self- sufficiency, offering connections to job training and education resources and assistance with food, childcare and transportation.Dial 2-1-1 from anywhere in [place] 10/12to be connected or visit http://www.buySAFE.[place].gov/ Safe Station Present to any one of the fire stations in [place] or [facility], now designated as ???Safe Stations?? , a place where you can walk in 10/12, and get connected with substance use treatment services. [facility] Safe Stations Central Fire Station: [address] --- Station 2: [address] Station 3: [address] --- Station 4: [address] [facility] [address] Station 5: [address] --- Station 6: [address] Station 7: [address]--- Station 8: [address] [facility] [employer] [facility] Station 9: [address]--- Station 10: [address] [facility] Safe Stations Station 1: [address] --- Station 2: [address] --- Station 3: [address] Station 4: [address] --- Station 5: [address] -- Station 6: [address] Station 7: [address] Additional Resources www.nhtreatment.org/ www.psychologytoday.com/ Www.rethinkingdrinking.niaaa.nih.gov/ www.samhsa.gov/dheyugbkxp-bymtojlq-raghrcgmh/erichixtuzgx-dxxjfyd-cckg/treatment -practitioner-reamer hand Online Stress Reduction Resources www.[employer]/videos-features/videos/incqxrart-fepypjmml-6-7-8-breath/ www.[facility].org/2013/bkeozofig-yjzaxtibd-boymdcc-moment/ www.headsExplore Engage.Carte [place]anche/ www.mindful.org/ www.freemindfulness.org/ YOU ARE SCHEDULED FOR A FOLLOW UP APPOINTMENT WITH DR SHARMA, YOUR SENIOR BENEFITS MANAGER ON 07/15/2020 AT 8:15AM YOU ARE SCHEDULED FOR A FOLLOW UP APPOINTMENT WITH YOUR PRIMARY CARE PROVIDER, UGO LIN APRN ON 07/05/2020 AT 2:45PM Patient Instructions Instruction after leaving the hospital Why you were hospitalized: You were hospitalized for shortness of breath and respiratory failure. You have been treated with antibiotics, steroids and have restarted your chronic immune suppression medications for your FOLEY. You were also treated for symptoms related to alcohol withdrawal and met with our substance abuse team for help with abstaining from alcohol. Call your doctor or seek medical attention if you develop the following: Call your doctor or seek medical attention if you experience any alarming symptoms. This may include, but is not limited to, fever, chest pain, severe shortness of breath, nausea with vomiting, persistent decrease in your urinaryoutput, severe pain, or any other concerning symptoms. Activity level: As tolerated. Diet: Healthy/Regular diet: Eat plenty of fruits and vegetables as well as protein to promote weightgain/muscle mass improvement. Trial of protein supplement as able to afford. Ensure Enlive (or generic similarity) recommended by nutrition here) Driving: Please do not drive if you feel lightheaded, dizzy, faint, or taking any opioids/narcotics (i.e oxycodone). It is advisable that you do not drive till you follow-up with your primary care physician. Shower/Bath: No new restrictions. Home Oxygen therapy: Continue previous home oxygen therapy. Patient Instructions: Changes in Your Medications: New Medications: 1. Prednisone taper - take 40 mg for 6 more days (starting 07/02) (total 7 your first dose was the day you were discharged); then take 30 mg for 7 days (07/08-07/14) ; then 20 mg for 7 days (07/15-07/21). By this time you will have followed up with your outpatient x ray inspector who will continue your taper (and provide more pre dnisone prescriptions/pills). 2. Omeprazole 20 mg - take 1 tablet daily You have been on pantoprazole in past, omeprazole is a very similar medications (often cheaper). Itprevents acid build up in your stomach which can worsen while on steroids. This is an over the counter medication! If the script is expensive, you can buy a bottle of generic omeprazole 20 mg at most pharmacies and grocery stores. Please take 1 pill daily while you are taking steroids. 3. B vitamins - you have been started on thiamine and folate while hospitalized as they are commonly deficient in alcohol use. They have NOT been prescribed. You can buy a B-complex vitamin in the drug store to taketo help support your nerves and mood. 4. Ipratropium-albuterol nebulizer- take 4 times a day as needed for shortness of breath. Can alternate with your rescue inhaler. A 14 day supply with one refill has been sent to the [facility] in [place], [place]. Continue Medications Sirolimus 2 mg daily - your x ray inspector has had this medication approved for you in the outpatient setting. The platform material handling supervisor is sending the medication by mail and it is on it's way. It may not be delivered for another 3-5 days. This is ok as your immune system is suppressed with your dose of steroids currently. Medication cost: IF YOUR PRESCRIPTION MEDICATIONS OR INSURANCE CARDS HAVE NOT ARRIVED For your prednisone and nebulizers: they have been sent to [facility] as they are at the lowest base cost there. Additionally, there are discounts that you can use through a company called [employer] which [facility]. You can log on to their website to print the discount prior to going to the pharmacy or you can download their Jacquie on a phone for the pharmacy to scan when you pay. The discounts are significant and will likely save your up to $100. Follow-Up Appointments No future appointments. Date and Time Provider and Specialty Location 07/05/2020 at 2:45 PM FRANCE Chen , PCP [address] [place] / [place] [id number] 07/15/2020 at 8:15 AM Pulmonary, Kim Sky MD If these times do not work for you please call your doctor's office to rescheduled Your Inpatient Doctor(s) at [facility]: Misbah Ward MD- Attending Physician Jessie Piña MD- Resident Physician Luiz Schuster MD- Resident Physician Your Primary Care Provider: FRANCE Chen [address] / [place] [id number] For questions regarding this document or issues relating to this hospitalization on the Hospital Medicine Service, please contact the on-call Hospitalist through the [facility] Procurement Buyer . DO NOT attempt to contact your care team through the nurse's station. documented in this encounter Discharge Instructions Discharge InstructionsJeanie Conti, [facility] - 07/01/2020 11:44 AM EST Substance Use Treatment and Relapse Prevention Resources Residential Treatment: [address] [phone] [phone] YOU ARE SCHEDULED FOR A FOLLOW UP APPOINTMENT WITH DR SHARMA, YOUR SENIOR BENEFITS MANAGER ON 07/15/2020 AT 8:15AM [facility] [address] [place] [address] Individual Counseling: [facility] [address] [facility] [address] Dorothy Martinez [facility] [address] [facility] [address] You may also search www.psychologyTrue&Coday.Carte Blanche or [employer] for therapists in your area. Peer Support Groups Alcoholics Anonymous (AA) [place]: , www.nhaa.net Narcotics Anonymous (NA) [place]: , www.gsana.org Online AA and NA Meetings AA, NA, Refuge Recovery, SMART Recovery www.MVERSE AA Video Meetings www.aa-intergroup.org/directory_audio-video.php AA Text Chat Meetings www.aa.intergroup.org/directory.php NA Video Meetings www.virtual-na.org/meetings NA Text Chat Meetings Www.neveraloneclub.org SMART Recovery Meetings via Zoom 5:00-6:00pm, free and open to all To join Zoom meetin. Visit www.Revision Military 2. Click on calendar on top of toolbar 3. Find the correct meeting date and time 4. Click the zoom link and enter password provided 211: The Doorway to Recovery [facility] will direct you to the help you need, from screening and evaluation, to treatment including medication-assisted treatment, to long-term recovery supports. [facility] will also help guide you on the path to self- sufficiency, offering connections to job training and education resources and assistance with food, childcare and transportation.Dial 2-1-1 from anywhere in [place] 10/12to be connected or visit http://www.theBee On The GoorWabrikworks.[place].gov/ Safe Station Present to any one of the fire stations in [place] or [facility], now designated as ???Safe Stations?? , a place where you can walk in 10/12, and get connected with substance use treatment services. [facility] Safe Stations Central Fire Station: [address] --- Station 2: [address] Station 3: [address] --- Station 4: [address] Station 5: [address] --- Station 6: [address] Station 7: [address]--- Station 8: [address] [facility] [facility] Station 9: [address]--- Station 10: [address] [facility] Safe Stations Station 1: [address] --- Station 2: [address] --- Station 3: [address] Station 4: [address] --- Station 5: [address] -- Station 6: [address] Station 7: [address] Additional Resources www.nhtreatment.org/ www.psychologytoday.com/ Www.rethinkingdrinking.niaaa.nih.gov/ www.samhsa.gov/txkuvmmncx-sxldcfjf-ujuntlphl/pyjpxknvosyk-trxhtma-onqg/treatment -practitioner-reamer hand Online Stress Reduction Resources www.Itibia Technologies/videos-features/videos/crxqdqgqk-hzcqarxga-2-7-8-breath/ www.Covia LabsindSokoosword.org/2013/fnkimpcrt-jalogbrfy-vayoavi-moment/ www.headsGuardian 8 Holdingsce.com/ www.mindful.org/ www.freemindfulness.org/ YOU ARE SCHEDULED FOR A FOLLOW UP APPOINTMENT WITH DR SHARMA, YOUR SENIOR BENEFITS MANAGER ON 07/15/2020 AT 8:15AM YOU ARE SCHEDULED FOR A FOLLOW UP APPOINTMENT WITH YOUR PRIMARY CARE PROVIDER, UGO LIN APRN ON 07/05/2020 AT 2:45PM Patient InstructionsLanreJessie walsh Priscila - 07/01/2020 12:24 PM EST Instruction after leaving the hospital Why you were hospitalized: You were hospitalized for shortness of breath and respiratory failure. You have been treated with antibiotics, steroids and have restarted your chronic immune suppression medications for your FOLEY. You were also treated for symptoms related to alcohol withdrawal and met with our substance abuse team for help with abstaining from alcohol. Call your doctor or seek medical attention if you develop the following: Call your doctor or seek medical attention if you experience any alarming symptoms. This may include, but is not limited to, fever, chest pain, severe shortness of breath, nausea with vomiting, persistent decrease in your urinaryoutput, severe pain, or any other concerning symptoms. Activity level: As tolerated. Diet: Healthy/Regular diet: Eat plenty of fruits and vegetables as well as protein to promote weightgain/muscle mass improvement. Trial of protein supplement as able to afford. Ensure Enlive (or generic similarity) recommended by nutrition here) Driving: Please do not drive if you feel lightheaded, dizzy, faint, or taking any opioids/narcotics (i.e oxycodone). It is advisable that you do not drive till you follow-up with your primary care physician. Shower/Bath: No new restrictions. Home Oxygen therapy: Continue previous home oxygen therapy. Patient Instructions: Changes in Your Medications: New Medications: 1. Prednisone taper - take 40 mg for 6 more days (starting 07/02) (total 7 your first dose was the day you were discharged); then take 30 mg for 7 days (2/19-07/14) ; then 20 mg for 7 days (07/15-07/21). By this time you will have followed up with your outpatient x ray inspector who will continue your taper (and provide more pre dnisone prescriptions/pills). 2. Omeprazole 20 mg - take 1 tablet daily You have been on pantoprazole in past, omeprazole is a very similar medications (often cheaper). Itprevents acid build up in your stomach which can worsen while on steroids. This is an over the counter medication! If the script is expensive, you can buy a bottle of generic omeprazole 20 mg at most pharmacies and grocery stores. Please take 1 pill daily while you are taking steroids. 3. B vitamins - you have been started on thiamine and folate while hospitalized as they are commonly deficient in alcohol use. They have NOT been prescribed. You can buy a B-complex vitamin in the drug store to taketo help support your nerves and mood. 4. Ipratropium-albuterol nebulizer- take 4 times a day as needed for shortness of breath. Can alternate with your rescue inhaler. A 14 day supply with one refill has been sent to the [facility] in [place], [place]. Continue Medications Sirolimus 2 mg daily - your x ray inspector has had this medication approved for you in the outpatient setting. The platform material handling supervisor is sending the medication by mail and it is on it's way. It may not be delivered for another 3-5 days. This is ok as your immune system is suppressed with your dose of steroids currently. Medication cost: IF YOUR PRESCRIPTION MEDICATIONS OR INSURANCE CARDS HAVE NOT ARRIVED For your prednisone and nebulizers: they have been sent to [facility] as they are at the lowest base cost there. Additionally, there are discounts that you can use through a company called [employer] which [employer]. You can log on to their website to print the discount prior to going to the pharmacy or you can download their Jacquie on a phone for the pharmacy to scan when you pay. The discounts are significant and will likely save your up to $100. Follow-Up Appointments No future appointments. Date and Time Provider and Specialty Location 07/05/2020 at 2:45 PM FRANCE Chen , PCP [address] / [place] [id number] 07/15/2020 at 8:15 AM Pulmonary, Kim Sky MD If these times do not work for you please call your doctor's office to rescheduled Your Inpatient Doctor(s) at [facility]: Misbah Ward MD- Attending Physician Jessie Piña MD- Resident Physician Luiz Schuster MD- Resident Physician Your Primary Care Provider: FRANCE Chen [address] [facility] [address] / [place] [id number] For questions regarding this document or issues relating to this hospitalization on the Hospital Medicine Service, please contact the on-call Hospitalist through the [facility] Procurement Buyer . DO NOT attempt to contact your care team through the nurse's station. documented in this encounter Medications at Time of Discharge Medication Sig Dispensed Refills Start Date End Date traZODone (Desyrel) 50 Take 50 mg by mouth 0 06/2020 mg Tablet nightly. multivitamin Take 1 tablet by mouth 30 tablet 12 11/20/2018 (THERAGRAN) Tablet daily. metoprolol tartrate Take 1 tablet by mouth 180 tablet 0 10/2018 (LOPRESSOR) 25 mg 2 times daily. Tablet Sirolimus 2 mg Tablet Take 2 mg by mouth 1 2018 daily. simvastatin (ZOCOR) 20 Take 20 mg by mouth 1 10/20 mg Tablet daily. CIS Free Text Med - 1 Puff(s), Inh, 0 06/08/2008 Albuterol Q4-6H,PRN omeprazole (PriLOSEC Take 1 tablet by mouth 30 tablet 1 04/202108/30/2020 OTC) 20 mg Tablet, daily for 60 days. Delayed Release (E.C.) ipratropium-albuteroL Take 0.5 mg by 2 Box 1 07/01/2020 07/29/2020 (DUONEB) 0.5 mg-3 nebulization 4 times mg(2.5 mg base)/3 mL daily as needed Solution for (shortness of breath) Nebulization for up to 28 days. predniSONE (Deltasone) Take 2 tablets by 30 tablet 0 202007/22/2020 20 mg Tablet mouth daily for 6 days, THEN 1.5 tablets daily for 7 days, THEN 1 tablet daily for 7 days. furosemide (LASIX) 40 Take 1 tablet by mouth 0 08/14/2021 mg Tablet daily. sertraline (ZOLOFT) Take 100 mg by mouth 0 201808/06/2021 100 mg Tablet daily. documented as of this encounter Progress Notes Soumya Braswell RN - 07/01/2020 6:54 PM EST Patient Name: Ricky Abel Patient Age: 59 y.o. Birthdate: 1960 Admit date: 06/28/2020 Attending Physician: Sasha att. providers found The patient discharged safely home via family member's vehicle. All of the patient's belongings weresent home with the patient including her medications from home and the nebulizer treatment machine. IV was removed, AVS was reviewed and given to the patient. All questions were answered. Misbah Ward MD - 07/01/2020 6:54 PM EST Hospital Medicine - Attending Day of Discharge Documentation Discharge diagnosis Active Hospital Problems Diagnosis ??? Severe protein-calorie malnutrition ??? Hypoxia Resolved Hospital Problems No resolved problems to display. Secondary Issues Active Non-Hospital Problems Diagnosis ??? Acute blood loss anemia ??? Chronic respiratory failure with hypoxia ??? Hypotension ??? Chest pain I have personally seen and examined the patient and they are ready for discharge. I spent >30 minutes (Day of Discharge Code 38896) involved in the final examination of the patient, discussion of the hospital stay, instructions for continuing care to all relevant caregivers, and preparation of discharge records, prescriptions and referral forms. Plans ? Discharge to home ? Follow-up scheduled with non-[facility] pulmonology ? Please see the Discharge Summary for complete details of any medication changes and additional plans. Sophie Abreu RN - 07/01/2020 4:16 PM KELLYumpamela: AMARI Progress Note Unemployment Examiner confirmed with Nurse that the nebulizer was delivered to patients room and that patient has aride home. Medically ready for discharge home with VNA services. Sophie Abreu RN, BSN, MST, ACM Mental Health Nurse pager#[phone] Michele Schaffer RN - 07/01/2020 12:34 PM EST At 12:20 pm CM into speak with the patient about home O2, VNA services and need of a nebulizer machine. Per patient her had [facility]. I am going to be d/c to my brothers address and that is in [place], [place]. [address] [place] [address]. CM states that the same VNA takes care of that area and CM is looking to order RN, PT and JUICE MIXER. JUICE MIXER to assist with possible Medicaid and also utilizing the community resources that are available. She agrees to this and CM to place referral. I have oxygen and it is a [employer] machine that charges s oI have a concentrator and also portable tanks. I would like [facility] for the nebulizer machine. The patient has been provided a list of Home Health Agencies/DME vendors which serve their preferredgeographic area. A letter describing our affiliations was reviewed with them and they were educated about their right to choose where referrals are placed. AMARI Provided patient with [facility] Star Quality Rating for Home care hand out. Patient requests referral to: [facility] in [place], [place] and [phone] [facility]: Shazia -- Please note that the patient is going to be d/c'd to her brothers address: [address] [place] [address] [facility] Expected date of discharge: 07/01 or 07/02 Referral routed to the Diagnostic Assistant for matching with agency/vendor and to provide any required information. AridParveen mack MD - 07/01/2020 11:08 AM EST Images from the original note were not included. PULMONOLOGY PROGRESS NOTE SECTION OF PULMONARY/CRITICAL CARE MEDICINE Patient Name: Ricky Abel : 1960 Medical Record: [id number] Date of Service: 07/01/2020 Hospital Day #: Hospital Day: 4 Location: Requesting Provider: Misbah Ward MD ID: Ricky Abel is a 59-year-old lady with a history of FOLEY who was admitted for acute hypercarbic and hypoxemic respiratory failure now recovered Subjective/overnight events: No overnight events Weaned down to 2 L nasal cannula Feeling well, motivated to go to counseling Objective: Last value Range last 24 hrs Temperature Temp: 36.6 ??C (97.9 ??F) Temp: [36.6 ??C (97.9 ??F)] Heart Rate Heart Rate: 83 Heart Rate: -- Blood Pressure BP: 144/83 BP: (108-144)/(69-92) Respiratory Rate Resp: 18 Resp: [18-20] SpO2 SpO2: 99 % SpO2: [96 %-99 %] Admit Weight 41 kg General: Bright and interactive, no acute distress Pulmonary/Chest: Diminished air movement but otherwise clear to auscultation bilaterally Cardiovascular: Regular rate and rhythm, no murmurs Abdomen: Soft, nontender Extremities: Thin, no edema Medications: Prednisone 40 mg daily Labs: Notable for WBC 9.8, K3.0, CO2 34 Otherwise unremarkable Diagnostics: No new imaging Assessment: Ricky Abel is a 59 y.o. 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 Shemay have some airways disease on top of this given her abrupt response to steroids. She appears stable for discharge today, I would plan for sending her out on 40 mg of prednisone daily for 7 days followed by a taper of 10 mg every week. She reportedly has a follow-up scheduled with her outpatient x ray inspector on July 08. She should have her home oxygen needs reevaluated at this appointment given that she does not appear to need as much as she is currently using. It would also be helpful to get a repeat echocardiogram to see if she has worsening pulmonary hypertension. Recommendations: ?? Discharge with 40 mg prednisone x7 days, 30 mg x 7 days, 20 mg x 7 days. She should definitely beseen by her outpatient x ray inspector before she gets below 20 mg on her taper to dictate whether sheshould be tapered more or less aggressively ?? Repeat a home oxygen evaluation ?? If in the future she would like to be seen here for any reason we are happy to see her in clinic however she has an established relationship with her home x ray inspector right now This case and above stated plan will be discussed with Dr. Ramos as well as the primary team. Furtheraddenda to follow below. Parveen Abbott 07/01/2020 11:08 AM Pulmonary/Critical Care Fellow Pager: [phone] Associated attestation - Vicky Ramos MD - 07/01/2020 11:18 PM EST Patient seen and discussed with patient day coordinator Dr. Abbott, whose note below reflects our joint input with the following additions/clarifications. I independently interviewed and examined the patient and have reviewed the medical record and relevant diagnostic studies. Has recovered to baseline and patient eager for discharge today. Exam still with diminished airflow throughout, likely chronic. Importance of medication continuation, titration of home O2 use to targetSpO2 88-92, and extrapulmonary health supports including alcohol abstinence, mental health support, nutrition reviewed with Mrs. Abel. Please discharge on prednisone taper and sirolimus as outlined below. She will resume triple inhaled therapy with breztri samples she has available at home on discharge. She has f/u with her x ray inspector on 07/08; will be appropriate to have sirolimus level checked after 10 days of sustained use. She plans to have updated transplant referral placed by her outpatient x ray inspector who has access to her complete pulmonary records. MD Long Bird Alysa, KARIN - 07/01/2020 9:56 AM EST Nutrition Progress Note Ricky Kellie Abel is a 59 y.o. female admitted with PMH of FOLEY (lymphangioleiomyomatosis), HTN, HLD,angiomyolipoma of kidney, renal carcinoma, who presents with hypoxic, hypercarbic respiratory failure Reason for intervention: Follow up Nutrition Recommendations: Continue current diet 3x Ensure Enlive per day Monitor weight Active Orders Diet Regular diet Frequency: Effective Now Number of Occurrences: Until Specified Lab Results Component Value Date NA 137 07/01/2020 K 3.0 (CRIT) 07/01/2020 CL 96 (L) 07/01/2020 CO2 34 (H) 07/01/2020 BUN 16 07/01/2020 CREATININE 0.46 (L) 07/01/2020 ESTGFR 109 07/01/2020 MAGNESIUM 0.92 06/28/2020 CALCIUM 9.3 07/01/2020 PHOS 4.9 (H) 06/28/2020 No results found for: POCGLU Skin Status: Shift Pressure Injury Prevention Occiput: No Injury Thoracic Spine: No Injury Sacral: No Injury Ischial - left: No Injury Ischial - right: No Injury Heel - left: No Injury Heel - right: No Injury Elbow - left: No Injury Elbow - right: No Injury Device Sites: O2 sat monitor, oxygen tubing, IV sites Other Sites: IDB Relevant medications: folic acid, lasix, protonix, prednisone, thiamine Last Bowel Movement: 06/29/20 Admit Weight: 41 kg Estimated body mass index is 16.42 kg/m?? as calculated from the following: Height as of this encounter: 158 cm (5' 2.21). Weight as of this encounter: 41 kg (90 lb 6.2 oz). Barnard Body Weight: 50.5kg Usual Body Weight: per pt, 115 lbs last year (around August-) Wt Readings from Last 10 Encounters: 06/28/20 41 kg (90 lb 6.2 oz) Assessment: Estimated needs: Calories: 5632-8954 (30-40 kcal/kg) Protein: 60-80 grams (1.5-2g/kg) Nutrition Focused Physical Exam (NFPE): Not performed Nutrition intake and intake history/Interview: Pt reported a good appetite and she consumed most of her breakfast consisting of an egg, 2 sausage, kyrgyz muffin, juice, v8, and coffee. Pt reported sheis drinking the Ensure 3x/day. Pt requested to change flavors, updated nourishments. Protein-calorie Malnutrition: < or equal to 50% of estimated energy needs for > or equal to 1 month and >10% weight loss in 6 months is consistent with severe protein-calorie malnutrition in the setting of social or environmental circumstances (Audi penn al, JPEN J Parenteral Enteral Nutr. 2011; 36(3): 273-83) Nutrition to continue to follow up while inpatient KARIN Cortes Informatics Coordinator LeobardoMichele RN - 07/01/2020 7:26 AM EST Joy Operator Helper IDR/ Daily Note: LOS: 3 days Primary Insurance: N/A Secondary Insurance: N/A PCP: FRANCE Chen [phone] Code Status: Attempt Cardiopulmonary Resuscitation - Inpatient Decision Maker: Chente (Brother): H: [phone] C: [phone] Reason for Hospitalization per H&P or ID: 59 y.o.??female??with PMH of FOLEY (lymphangioleiomyomatosis), HTN, HLD, angiomyolipoma of kidney, renal carcinoma, who presents with hypoxic, hypercarbic respiratory failure. Patient with FOLEY on baseline 6L via [place] home O2 on sirolimus 2mg daily, called EMS today for increased WOB, found to be hypoxic to the 70s on her home O2 regimen. Presented to [facility] where acidotic and hypercarbic. Started on BiPAP 14/8 at 65%. WBC 26. Patient reportedly had significant anxiety requiring ativan 0. 5mg and then 1 mg. Rapid COVID was negative.?? Patient Active Problem List Diagnosis Code ??? Chest pain R07.9 ??? Hypotension I95.9 ??? Acute blood loss anemia D62 ??? Chronic respiratory failure with hypoxia J96.11 ??? Hypoxia R09.02 ??? Severe protein-calorie malnutrition E43 e- and [facility] reviewed prior to IDR. Patient discussed with Medicine [place] [phone] team, nursing, CM and JUICE MIXER. Per interdisciplinary rounds patient continues to require inpatient status. Transferred out to the floor from the ICU. Currently on 5-6 L O2 and baseline home O2 is 6L, ? ETOH withdrawal, some social issues and ? Of loosing her insurance since passed. She did not have the funds to take her meds. BIT and JUICE MIXER involved. Anticipated d/c and plan: Patient is medically ready. Current discharge needs are uncertain but based on current medical status and medications, past medical hx or prior needs; the patient would need home with services when medically ready for discharge. Items to Consider for Discharge: insurance issues for lung transplant evaluation etc Home Oxygen - concentrator (own it) 6L NC at home Needs a nebulizer passed 4 weeks ago Patient to be discharged to her brothers Current referrals placed to: [facility] Interventions: At 7:25 am Team is notified - AMARI looking out to someone to see if can check her SSnumber as she stated to Ivan that she has Medicare A+B and she does not have her cards with her to run the number. She stated that she had some kind of secondary insurance but still no card to get numbers. Per notes she is base line 6L wondering if this is with or without activity as a home system t his is the max for a home concentrator. AMARI into speak with patient about d/c and VNA, she states that she is going to be d/c to her brothers[address] [place] [address]. She states that her just passed and he used [facility]. CM to place a referral to VNA. She states that she would like to use [facility] for nebulizer. I am leaving today and my brother is picking me up at 2 pm. AMARI notifies the team to make sure that the patient is leaving at 2 pm. AMARI works on VNA orders and nebulizer order. AMARI calls [facility] and states that the patient is being d/c'd today to her brothers address and try tocoordinate a delivery. Per Gage if the order can be submitted and faxed they can deliver it to her rooms. AMARI gives patient information and also her number in her room. AMARI notifies the team that the o rders are pended and [facility] needs the neb order signed and that if goes through insurance that theycan deliver. AMARI will continue to monitor progress, follow for continuity of care and assist with discharge planning while patient is inpatient status on current unit. Michele Booth RN Office of Care Management dairy powder mixer operator Pager: [phone] Damien Schaffer RN - 07/01/2020 5:14 AM EST OUTCOME EVALUATION NOTE: OUTCOME SUMMARY: V/S as charted. Oriented x4. Denies pain, numbness, tingling. C/O of SOB briefly (oxygen became disconnected), scheduled nebulizer given, no further issue. Slept most of the night. Will CTM and notify team of any changes. PLAN MOVING FORWARD: Prednisone Phenob taper Lung transplant? Emotional support D/C planning INDIVIDUALIZED FALL PREVENTION INTERVENTIONS: Patient-specific fall risk factors per assessment: [current deficits]: Independent Assistance [level of assistance required for transfers and ambulation]: Independent Supervision [direct monitoring required during toileting and ADLs]: Independent Surveillance [continuous indirect monitoring]: Purposeful roundingkeo Patient-specific fall prevention interventions for sensory deficits provided, if applicable: N/A CPG GOAL OUTCOME EVALUATION: Carlos Valles - 06/30/2020 2:50 PM EST Valet Attendant Encounter Note Patient Name: Ricky Abel : [id number] MR#: [id number] Admit Date: 06/28/2020 2:20 AM Hospital Day 2 days Narrative: A response to a referral for the Sacrament of the sick to patient. Assessment: Patient is awake, alert and responsive. Patient is very friendly and receptive. Patient is emotionaland teary narrating her story. Patient says, she is very sick with lung disease and was being takingcare of by her . Patient lost her 4 weeks ago with whom she has for 23 year. Patient feels she lost the love of her life and could not handle it. Patient went into drinking to ease the pain. Patient started having difficulty in breathing. Patient did not find any help from alcohol. Patient has support from her brother who took her to live with him and his children. Patient has also her mother in-law and brother in-law but they all live in [place]. Patient wants to prove to her brother that she can do this. Patient wants prayer, anointing of the sick and blessing. Intervention and Outcome: I offered patient Pastoral presence, Empathetic listening, proper prompting, Validation, Spiritual/Emotional support and encouragement. I assist patient explore the value and dignity of human life which is a gift from God that needs to be protected and cherished. I assist patient explore a goal for herself. Patient says, I want to prove to my brother that I can do this. I prayed with patient. I gave patient anointing of the sick and blessing. Patient expressed appreciation. Follow-up: A needed. Time in Direct Care: 20 Carlos Odell 06/30/2020 India Clifton PTA - 06/30/2020 11:37 AM EST Physical Therapy Note Treatment Number PT: 2 Patient profile: Ricky Hopkins Colten??is a 59 y.o.??female??admitted in transfer from [facility] to the [facility] for acute hypoxic and hypercarbic respiratory failure. PMH of FOLEY (lymphangioleiomyomatosis), HTN, HLD, angiomyolipoma of kidney, renal carcinoma, who presents with hypoxic, hypercarbi c respiratory failure. Patient with FOLEY on baseline 6L via NC home O2 on sirolimus 2mg daily, calledEMS today for increased WOB, found to be hypoxic to the 70s on her home O2 regimen. Presented to [facility] where acidotic and hypercarbic. Started on BiPAP 14/8 at 65%. WBC 26. Patient reportedly had significant anxiety requiring ativan 0. 5mg and then 1 mg. Rapid COVID was negative.?? Interval History: Per MD note 06/30/20 - Overnight IV leaky and needed to be replaced. Vascular had difficulty gaining access and patient become agitated after multiple sticks. Retried several hours later with success. - AVSS - tachycardic on 4L O2 - This am, emotionally labile on exam. Paranoid about lab testing for drugs and nurses waking her up. Wanted labs removed from chart. - Refused AM blood draws - BIT evaluated, provided support and stress reduction techniques Social History: Home set-up: 2 story home w 2 LEIDY, FOS to master bed and only full bath. Has a 1st floor bedroom option but only a toilet on that level. Bathroom Set-up: tub shower, has a seat but does not use Stairs: FOS With rail Baseline Mobility: fully indep w all adl/iadls Equipment at home: shower chair, cane, home O2 Fall history: denies Precautions/Special Considerations: supplemental O2, 4L at baseline, Fall Risk Mobility and Positioning Recommendations: ?? Pt. to utilize no AD and supervision for ambulation and transfers with nursing. ?? Please encourage up to chair for meal times as able. ?? Pt encouraged to ambulate frequently with staff, getting into the bathroom for toileting and walking out in the gasca >/= 3 times daily as able. Subjective: I remember when I was in pulmonary rehab before they would tell me to breath like that. After cues for breathing in through nose and out pursed lips. Objective: Patient seen for physical therapy and demonstrated the following: Pain: no c/o pain Vital Signs: VSS on 4L, SpO2 95-98% Cognition/Vision: A&O x 4 Bed Mobility: Supine to Sit: N/A Sit to Supine: N/A Transfers: Sit to Stand: independent using no assistive device Stand to Sit: independent using no assistive device Bed to Chair: independent using no assistive device Gait: Distance: 150' Device used: no assistive device Level of assist: assist for O2 tank, otherwise independently Gait mechanics: Decreased gait speed, no LOB noted Stairs: 11 ups to 6 step with 1 rail, supervision with no LOB noted, SpO2 stable Balance: Sitting Static: good Sitting Dynamic: good Standing Static: good Standing Dynamic / Gait: good Education: Pt educated on importance of mobility, d/c planning, role of therapy. Pt left with all needs met and with call magdaleno in reach sitting EOB following visit. Assessment: Ricky Kellie Abel was seen today for physical therapy treatment session for continuationof POC. Pt presented sitting EOB, willing and eager to participate in therapy. Pt continues to ambulate well with no LOB noted and no AD. Pt endorses air hunger with increased activity especially with stair training. Pt would benefit from continued ambulation throughout hospital stay to increase functional endurance. Pt will benefit from ongoing therapeutic interventions to achieve therapy goals. Discharge Recommendations: Based on the current findings, Anticipated Discharge Disposition (PT): home, home with outpatient therapy services(pulmonary rehab) when medically ready for hospital discharge. Consult Recommendations: No other consults recommended at this time. Equipment needs: No equipment necessary Physical Therapy Goals: To be achieved by 07/06/20: ?? 1. Pt. to demonstrate knowledge of safety limitations and precautions and will appropriately requestassistance for functional activities and to mobilize. 2. Pt. to demonstrate understanding of appropriate HEP. 3. Pt. to perform bed mobility with modified independence. 4. Pt. to ambulate 150 feet with modified independence using a no assistive device. MET 5. Pt. to ambulate up/down 12 step/stairs using one rail with modified independence. 6. Family or caregiver to demonstrate understanding of therapeutic interventions to support the careof the patient. 7. Pt will tolerate progression towards upright with stable vital signs. ?? Plan: Therapy Frequency (PT): 1-2 more times for therapy interventions as outlined in initial evaluation. Patient agrees with plan as stated. Time IN / OUT: 11:37-12:07 Total Minutes, Physical Therapy: 30(TE-Fx 2) India Clifton PTA Pager: [phone] Physical Therapy Inpatient Rehabilitation Department Kannan Schuster MD - 06/30/2020 11:31 AM EST [facility] Inpatient Progress Note ID: Ricky Abel is a 59 y.o. female admitted in transfer from [facility] to the [facility] for acute hypoxic and hypercarbic respiratory failure Active Hospital Problems Diagnosis ??? Severe protein-calorie malnutrition ??? Hypoxia Resolved Hospital Problems No resolved problems to display. Interval History: - Overnight IV leaky and needed to be replaced. Vascular had difficulty gaining access and patient become agitated after multiple sticks. Retried several hours later with success. - AVSS - tachycardic on 4L O2 - This am, emotionally labile on exam. Paranoid about lab testing for drugs and nurses waking her up. Wanted labs removed from chart. - Refused AM blood draws - BIT evaluated, provided support and stress reduction techniques Meds: ??? [START ON 07/01/2020] predniSONE 40 mg Oral Daily ??? thiamine 100 mg Oral Daily ??? folic acid 1 mg Oral Daily ??? pantoprazole EC 40 mg Oral Daily ??? sertraline 100 mg Oral Daily ??? metoprolol tartrate 25 mg Oral 2 times per day ??? simvastatin 20 mg Oral QPM ??? ipratropium-albuteroL 3 mL Nebulization Q4H OSMIN ??? furosemide 40 mg Oral Daily ??? heparin (porcine) 5,000 Units Subcutaneous 2 times per day ??? PHENobarbitaL 0.48 mg/kg/dose Oral BID Followed by ??? [START ON 07/01/2020] PHENobarbitaL 0.24 mg/kg/dose Oral BID ??? sirolimus 2 mg Oral Daily PRN medications morphine, sodium chloride Current Facility-Administered Medications Medication Dose Route Frequency ??? morphine oral solution (2 mg/mL) oral liquid 5 mg 5 mg Oral Q3H PRN ??? sodium chloride (OCEAN) 0.65 % nasal spray 1 spray 1 spray Each Nare BID PRN Physical Exam: Last value Range last 24 hrs Temperature Temp: 36.8 ??C (98.2 ??F) Temp: [36.4 ??C (97.5 ??F)-36.8 ??C (98.2 ??F)] Heart Rate Heart Rate: 83 Heart Rate: [83-108] Blood Pressure BP: 133/88 BP: (114-139)/(73-88) Respiratory Rate Resp: 22 Resp: [14-25] SpO2 SpO2: 100 % SpO2: [97 %-100 %] Intake/Output Summary (Last 24 hours) at 06/30/2020 1131 Last data filed at 06/29/2020 1500 Gross per 24 hour Intake 360 ml Output 550 ml Net -190 ml Patient Vitals for the past 168 hrs: Weight 06/28/20 0228 41 kg (90 lb 6.2 oz) Admit wt: 41 kg Gen: Alert & oriented x3, tearful, thin HEENT: EOMI, anicteric, MMM CV: Tachycardic, distant Pulm: tachypneic, diminished throughout, no wheezing, rhonchi or rales Abd: +BS, soft, nontender Ext: No pedal edema Neuro: Grossly intact, moving all four extremities. Skin: Warm, dry, no rashes Lymph: no cervical/supraclavicular/axillary lympha Psych: speech clear, emotionally labile. Paranoid throughout exam. Labs: Recent Labs 06/29/2022206/28/20 0300 WBC 10.7* 24.0* HGB 12.0 12.3 HCT 36.7 38.2 PLATELET 344 413* Recent Labs 06/29/2022206/28/20 0300 NA 137 138 K 4.4 Not Perf CL 98 99 CO2 29 28 BUN 20* 24* CREATININE 0.54* 0.52* GLUCOSE 123 117 Recent Labs 06/29/2022206/28/20 0300 CALCIUM 8.7 8.9 MAGNESIUM -- 0.92 PHOS -- 4.9* No results for input(s): AST, ALT, ALKPHOS, BILITOT, BILIDIR in the last 168 hours. Imaging: Results for orders placed or performed during the hospital encounter of 06/28/20 XR Chest One View (Exam End: 06/28/2020 4:14 AM) Impression Diffuse reticular opacities suggestive of interstitial process such as atypical infection or fibrosis. Background lymphangioleiomyomatosis. Preliminary report signed by: Malinda Coreas at 06/28/2020 4:54 AM I have personally reviewed the image(s) and the resident's interpretation and agree with the findings, Facundo Alvarez MD at 06/28/2020 5:35 AM Thank you for letting us participate in the care of this patient. For questions regarding this report, please contact the number below. Chest wo Contrast (Generic) (Exam End: 06/28/2020 7:55 PM) Impression 1. Motion degraded study. 2. Grossly no focal consolidation. 3. Small to moderate-sized pericardial effusion anteriorly. 4. Chronic findings of FOLEY throughout both lungs are unchanged. Preliminary report signed by: Umang Christianson at 06/28/2020 8:24 PM I have personally reviewed the image(s) and the resident's interpretation and agree with the findings, Flaca Glover MD at 06/28/2020 9:08 PM Thank you for letting us participate in the care of this patient. For questions regarding this report, please contact the number below. Electronically signed by: Flaca Glover MD, [facility] ([phone]), at 06/28/2020 9:08 PM Microbiology: Microbiology Results (Last 30 days) Procedure Component Value Units Date/Time Respiratory Panel PCR [[id number]] Collected: 06/28/20 1410 Lab Status: Final result Specimen: Nasopharyngeal Swab Updated: 06/28/20 1537 Resp Panel Source HEAV[employer] EQUIPMENT PLUMBING SUPERVISOR Swab Resp Panel PCR Negative Comment: Respiratory Panels are performed on the [employer], using multiplexed PCR nucleic acid detection. Negative results do not preclude respiratory infection and should not be used as the sole basis for diagnosis, treatment or other management decisions. Adenovirus Not Detected Coronavirus HKU1 Not Detected Coronavirus NL63 Not Detected Coronavirus 229E Not Detected Coronavirus OC43 Not Detected SARS-CoV-2 Not Detected Comment: Testing for SARS-CoV-2 (Severe acute respiratory syndrome coronavirus 2) to aid in the diagnosis of COVID-19 is performed using the Bio[employer] Respiratory Panel 2.1 (My Point...Exactly) as authorized by the FDA issued Emergency Use Authorization (EUA). This panel also tests for multiple other viral and bacterial pathogens. This assay is intended for In-vitro Diagnostic (IVD) use with nasopharyngeal swabs in viral transport media. The assay is performed based on the instructions for use and additional guidance provided by the FDA. Testing is performed in laboratories within the [facility], each of which is certified under the Clinical Laboratory Improvement Amendments of 1988 (CLIA), 42 U.S.C. section 263a, to perform high-complexity tests. Assay performance has been verified according to clinical laboratory regulatory requirements. The test result for SARS-CoV-2 provided above should be interpreted in combination with the clinical observation, patient history and epidemiological information. For testing of asymptomatic individuals, assay performance characteristics and clinical utility have not been evaluated. A result of Not Detected indicates that the viral RNA target is not present but does not preclude SARS-CoV-2 infection. False negative results may occur if a specimen is improperly collected, transported or handled; if amplification inhibitors are present; or if inadequate numbers of viral particles are present in the specimen. When a diagnostic test is negative, the possibility of a false negative result should be considered in the context of a patient???s recent exposures and the presence of clinical signs and symptoms consistent with COVID-19. A result of Detected suggests a current or recent infection. Positive and negative predictive values for this test are dependent on disease prevalence. A result of Invalid indicates the inability to conclusively determine the presence or absence of SARS-CoV-2 RNA in the sample which can be due to a variety of factors. Collection of a new sample for repeat testing is recommended in the case of an invalid result. CDC COVID-19 criteria for testing on human specimens and clinical management guidance information are available at the CDC Coronavirus Disease 2019 (COVID-19) webpage under Information for Healthcare Professionals (https://www.cdc.gov/coronavirus/2019-ncov/hcp/index.html). Additional information about this and other EUA tests can be found in provider and patient fact sheets at the following FDA website: https://www.fda.gov/medical-devices/eldqwgvspgi-ztayprr-5846-imhyd-81-caosaqyhl- aba-hluaumbdcuhhyd-ikabute-devices/wuhmi-urlumlhcdrn-fexs Human Metapneumovirus Not Detected Human Rhino/Enterovirus Not Detected Influenza A Not Detected Influenza B Not Detected Parainfluenza 1 Not Detected Parainfluenza 2 Not Detected Parainfluenza 3 Not Detected Parainfluenza 4 Not Detected Respiratory Syncytial Virus Not Detected Chlamydophila pneumoniae Not Detected Mycoplasma pneumoniae Not Detected COVID-19 PCR [[id number]] Collected: 06/28/20 0531 Lab Status: Final result Specimen: Nasopharyngeal Swab Updated: 06/28/20 0800 Rapid SARS-CoV-2 RNA Not Detected Comment: This result should be [...] using the Simplexa COVID-19 Direct Assay by [email or web address] as authorized by the FDA issued Emergency [...] Department of Pathology and Laboratory Medicine at [facility], certified under the Clinical Laboratory Improvement Amendments [...] fact sheets at the following FDA website: https://www.fda.gov/medical-devices/wqgstyxdtmj-sgboeut-3895-aique-21-thbcgwqug- ehs-dgjygxvgspgmqa-fkdfrxg-devices/lherc-ueqicvgfdxf-mkjf SARS-CoV-2 Source HEAV[employer] EQUIPMENT PLUMBING SUPERVISOR Swab Assessment and Plan: Ricky Abel??is a 59 y.o.??female??with PMH of FOLEY (lymphangioleiomyomatosis), HTN, HLD, angiomyolipoma of kidney, renal carcinoma, who was admitted in transfer from [facility] for acute hypoxic, hypercarbic respiratory failure in setting of not taking medications for her FOLEY for the month prior due to loss of /insurance and inability to afford them. 06/30/20 Plan to transition IV solumedrol to oral prednisone. Will discontinue azithromycin and continue sirolimus. Patient was increasingly paranoid this morning and emotionally labile. Likely 2/2 steroids. Will continue to monitor patient and vitals to ensure barbiturate taper adequate. ?? #FOLEY #Hypoxic, hypercarbic resp failure -??pulmonary consulted, appreciate recommendations - scheduled duonebs every 4 hours - discontinue solumedrol - start 40mg oral prednisone - sirolimus 2mg po daily ( per outpatient x ray inspector Dr. Sharma at [facility] she has been able to obtain approval for this medication so that patient can have at home again; still unable to afford Spiriva) - discontinue azithromycin - continue home furosemide 40 mg po daily - d/c liquid morphine 5 mg every 3 hours PRN for WOB/dyspnea - follow up with outpatient x ray inspector; Dr. Sharma @ [facility] - PT/OT? #EtOH withdrawal #acute grief reaction - continue phenobarbital protocol?? - daily thiamine and folate - BIT team consult for EtOH and grief reaction - restart home trazodone 50 mg nightly - restart home sertraline 100 mg daily - recent Rx of fluoxetine and bupropion as well, but not sure if patient is taking due to cost; willhold off for now - Social work consult? #home medications - continue home metoprolol tartrate 25 mg BID - continue home simvastatin 20 mg nightly ?? #Housekeeping: - DVT PPx: heparin - GI PPx: home PPI - Diet: regular diet, nutrition consulted for reported weight loss - Level of care: medical floors - Vitals: q 6 hours while awake - Code Satus: Full Code ?? Kannan Schuster MD 06/30/2020 PGY-1, Psychiatry Green Team - Pager [phone] Associated attestation - Misbah Ward MD - 06/30/2020 5:00 PM EST Attending Attestation Please see Dr. Schuster's note for details of the patient history of presentation and data. I have discussed, reviewed and agree with the documented History, Physical findings, Assessment and Plan of care. I have examined the patient myself and personally reviewed all studies. In addition, I certify that I am a [facility] credentialed attending provider with admitting privileges and that the patient meets or has met medical necessity to require an inpatient IPI level of care meeting a minimum of two midnights or is on the [facility] inpatient only procedure list (status C) due to: acute respiratory compromise and/orhypoxia requiring assessment every 4 hours and the ability to respond immediately to the patient's need Symptomatically improved, minimal morphine use so we will hold this today and switch over to PRN albuterol inhaler for dyspnea per patient request. Convert steroids to prednisone with planned slower taper. Check ABG tomorrow. Continue sirolimus, trough level to be checking in ~two weeks. Prior to discharge, ensure inhalers are covered by insurance. Ricky is interested in pursuing lung transplant evaluation, she talked to BIT today and seems enthusiastic to regain control of her life after all thesignificant psychosocial stressors she has been facing as of late. Parveen Abbott MD - 06/30/2020 10:30 AM EST Images from the original note were not included. PULMONOLOGY PROGRESS NOTE SECTION OF PULMONARY/CRITICAL CARE MEDICINE Patient Name: Ricky Abel : 1960 Medical Record: [id number] Date of Service: 06/30/2020 Hospital Day #: Hospital Day: 3 Location: [address] [place] [address] Requesting Provider: Misbah Ward MD ID: Ricky Abel is a 59 year old lady with history of lymphangioleiomyomatosis, possible asthma who is seen by pulmonary for ongoing management after resolved hypoxemic and hypercarbic respiratory failure Subjective/overnight events: Feeling much better this morning, no acute overnight events, currently saturating 100% on 4 L nasal cannula Objective: Last value Range last 24 hrs Temperature Temp: 36.5 ??C (97.7 ??F) Temp: [36.4 ??C (97.5 ??F)-36.8 ??C (98.2 ??F)] Heart Rate Heart Rate: 83 Heart Rate: [83-108] Blood Pressure BP: 114/75 BP: (114-139)/(73-84) Respiratory Rate Resp: 20 Resp: [14-25] SpO2 SpO2: 98 % SpO2: [97 %-100 %] Admit Weight 41 kg General: Sitting upright in bed, bright and interactive, no acute distress Pulmonary/Chest: Occasional expiratory wheezes in the mid lung oswald, otherwise clear to auscultation bilaterally Cardiovascular: Regular rate and rhythm, no murmurs Abdomen: Soft, nontender Extremities: Warm, well-perfused, thin Medications: Continued on methylprednisolone IV 06/28-06/30 Prednisone 40 mg daily Sirolimus 2mg daily 06/28 - Azithromycin duonebs q4h scheduled Furosemide 40 mg daily Labs: No labs done today Diagnostics: No new imaging Assessment: Ricky Abel is a 59 y.o. female with a history of lymphangioleiomyomatosis, possible asthma who is seen in follow up. She remains close to her baseline at 4L NC. She is anxious to go home at this point. As stated, would transition to prednisone 40 mg daily from methylprednisolone for treatment of presumed bronchial obstruction, otherwise no major changes. We discussed some things today that she can work on to try to improve her transplant eligibility in the future including main obtaining good insurance coverage, nutrition, avoiding alcohol. She appeared motivated to do all of these things and has a strong motivation to stay around for her family. She does not need to be saturating 100%, I would target 88 to 92% on her Recommendations: ?? Prednisone 40 mg daily, further recommendations on taper on discharge ?? Would recommend a repeat echocardiogram however this can be done with her outpatient x ray inspector ?? Recommend repeat home oxygen evaluation be done with her outpatient x ray inspector as well to determine her true needs ?? Continue sirolimus ?? Continue to work with social work, nutrition on supports and emphasize connection between these to potential lung transplant down the line This case and above stated plan will be discussed with Dr. Ramos as well as the primary team. Furtheraddenda to follow below. Parveen Abbott 06/30/2020 10:30 AM Pulmonary/Critical Care Fellow Pager: [phone] Associated attestation - Vicky Ramos MD - 06/30/2020 11:24 PM EST Patient seen and discussed with patient day coordinator Dr. Abbott whose note below reflects our joint input. I independently interviewed and examined the patient and reviewed the medical record and relevant diagnostic studies. Doing well, now weaned to essentially home baseline oxygen needs. Please continue transition to prednisone, continue sirolimus, and continue to address social factors and nutritional support. Will needsirolimus trough in about 10 days and we recommend an ECHO this winter as well. She is on scheduled duonebs in place of home inhaler. We will clarify prednisone course prior to discharge. She will need close f/u with her outpatient x ray inspector after discharge. Vicky Ramos MD [facility] F - 06/30/2020 9:34 AM EST Subjective Ricky Abel ia 59 year old for 10 pack year smoker with PMH of lymphangioleiomyomatosis (FOLEY), and unclear hsitory of asthma. She was admitted to the ICU with hypoxic and hypercarbic respiratoryfailure after transfer from [facility]. EMS were called to her house for complaint of severeSOB and reported her at 70%SaO2 on 6L home O2 (normal range 3L at rest/sleep and 4 active). She received antibiotics, steroids and Bipap with rapid response. She is currently on 4L NC sating in the high 90's. Patient has been seen by outpatient pulmonist Dr. Shrama at [facility] with a focustoward potential transplant. Over the past several months she reports improved breathing with prednisone treatment. Ricky is experiencing significant social stressors at this time. Her 1+ month ago which removed a care/support provider and complicated her access to insurance whic prevented her from taking her normal medications. This morning Ricky reports feeling that she is better today than she has been in a long time upon questioning she states that she feels her breathing today is better than at baseline. She has concerns regarding her future management of FOLEY and would like to use her breztri (budesonide, glycopyrrolate, fometerol futrate) inhaler soon. ROS- denies cough, fever, chills, aches, night sweats, chest pain. Objective Medications Prednisone -40 mg PO qd Albuterol 2.5 mg Q2h nebulization Metoprolol 25mg po Sirolimus 2 mg po qs VS on 4L NC Temp: [36.4 ??C (97.5 ??F)-36.8 ??C (98.2 ??F)] Heart Rate: [83-108] Resp: [14-25] BP: (114-139)/(73-88) SpO2: [97 %-100 %] Heart Rate from SpO2: [58 bpm-107 bpm] Phys Exam - Gen- NAD, cachetic, -Cardio-Normal rhythm , no murmurs, rubs or gallops, 1+ radial pulses bilaterally -Pulm- CTAB, reduced breath sounds -Psych- significantly more talkative and no longer tearful Labs No new labs Imaging No new imaging to report PFT results faxed from Dr. Sharma show FEV1 of 19% and DLCO of 24% in 2019, indicating severe obstructive lung disease. Assessment Ricky Abel is a 59 year old woman with PMH of FOLEY transferred from [facility] after episode of hypoxic and hypercarbic respiratory failure. She recovered within a short amount of time and is currently reporting better than baseline levels of SOB. Her course is complicated by her socialstressors, unique presentation/resolution of her inciting incident and rare status of FOLEY. Regarding social stressors, she has recently secured access to sirolimus and is working with to secure medicaid. FOLEY is a chronic condition that presents most often in women in the third or fourth decade of life. It is normally treated with mTOR inhibition, monitored observation and transplant in refractory cases. Details of the last several weeks make it seem like after not being able to use sirolimus but havingaccess to sample breztri inhalers the patient's baseline O2 requirements jadyn gradually. It is interesting that she has responded so quickly to the initial treatments of antibiotics, solumedrol, and Bipap. It is unclear what causes the deterioration which led to calling EMS. Patient reports that she was incorrectly diagnosed with asthma as a young woman and currently suffers from seasonal allergies and lives with 2 cats. It is possible that environmental triggers leading to bronchospasm played a role in her decompensation. Pt reports recent use of oral prednisone courses to treat symptoms. As solumedrol was d/c'd this morning starting on prednisone, observing and moving toward an eventual taper as symptoms permit may be advisable. Additionally, she had had a significant break in between her sirolimus and tough levels need to be monitored especially as she is taking it concurrently with steroids. Common adverse effects include peripheral edema, constipation and UTI but there are a wide range of potential effects. Today she wants to discuss ongoing FOLEY treatment with the Pulm team. Plan Recommendations -Ct 40mg prednisone - Sirolimus trough tracking for 10-20 days. This will likely need to be coordinated on an outpatientlevel. - coordinate with out pt pulmonology - Encourage wt gain and continued communication with social work Jonah Logan LeobardoMichele RN - 06/30/2020 6:39 AM EST Joy Operator Helper IDR/ Daily Note: LOS: 2 days Primary Insurance: N/A Secondary Insurance: N/A PCP: FRANCE Chen [phone] Code Status: Attempt Cardiopulmonary Resuscitation - Inpatient Decision Maker: Chente (Brother): H: [phone] C: [phone] Reason for Hospitalization per H&P or ID: 59 y.o.??female??with PMH of FOLEY (lymphangioleiomyomatosis), HTN, HLD, angiomyolipoma of kidney, renal carcinoma, who presents with hypoxic, hypercarbic respiratory failure. Patient with FOLEY on baseline 6L via NC home O2 on sirolimus 2mg daily, called EMS today for increased WOB, found to be hypoxic to the 70s on her home O2 regimen. Presented to [facility] where acidotic and hypercarbic. Started on BiPAP 14/8 at 65%. WBC 26. Patient reportedly had significant anxiety requiring ativan 0. 5mg and then 1 mg. Rapid COVID was negative.?? Patient Active Problem List Diagnosis Code ??? Chest pain R07.9 ??? Hypotension I95.9 ??? Acute blood loss anemia D62 ??? Chronic respiratory failure with hypoxia J96.11 ??? Hypoxia R09.02 ??? Severe protein-calorie malnutrition E43 e- and [facility] reviewed prior to IDR. Patient discussed with Medicine [place] [id number] team, nursing, CM and JUICE MIXER. Per interdisciplinary rounds patient continues to require inpatient status. Transferred out to the floor from the ICU. Currently on 5-6 L O2 and baseline home O2 is 6L, ? ETOH withdrawal, some social issues and ? Of loosing her insurance since passed. She did not have the funds to take her meds. BIT and JUICE MIXER involved. 24 hour events: - Overnight IV leaky and needed to be replaced. Vascular had difficulty gaining access and patient become agitated after multiple sticks. Retried several hours later with success. - AVSS - tachycardic on 4L O2 - This am, emotionally labile on exam. Paranoid about lab testing for drugs and nurses waking her up. Wanted labs removed from chart. - Refused AM blood draws - BIT evaluated, provided support and stress reduction techniques Anticipated d/c and plan: Patient is not medically ready. Maybe ready over the weekend Current discharge needs are uncertain but based on current medical status and medications, past medical hx or prior needs; the patient would need TBD when medically ready for discharge. Items to Consider for Discharge: insurance issues for lung transplant evaluation etc Home Oxygen - concentrator (own it) 6L NC at home ? BiPAP need passed 4 weeks ago Recommendations by PT/OT: Home environment: lives alone in a 2 story home w/4ste. She stated that she is set up on the first floor. She has a inogen concentrator she bought that she uses at home. Lives with: [address] [facility] [id number] Current referrals placed to: none CM Interventions: At 9:29 am CM e-mails Ivan to investigate patients insurance. AMARI gets a call from Ivan that the patient states that she has Medicare A+B and some kind of supplement but she does not have her cards to see if she has the insurance coverage that she states. AMARI updates the team and will contact someone to see if they can run her SS to get medicare number. CM will continue to monitor progress, follow for continuity of care and assist with discharge planning while patient is inpatient status on current unit. Michele Booth RN Office of Care Management dairy powder mixer operator Pager: [phone] Soumya Braswell RN - 06/29/2020 7:00 PM EST OUTCOME EVALUATION NOTE: OUTCOME SUMMARY: The patient was transferred from the ICU this evening and arrived on [address] around 1600. The patientis alert and oriented x 4. The pt has been tearful and sad due to her 's recent passing. VSS.No complaints of pain. On 4 L NC. SOB observed and reported when the patient ambulates. Will notify the team with any changes. PLAN MOVING FORWARD: - Monitor respiratory status - Emotional support - Encourage PO intake - D/C planning INDIVIDUALIZED FALL PREVENTION INTERVENTIONS: Patient-specific fall risk factors per assessment: [current deficits]: Unfamiliar environment, generalized weakness, lines/tubes/drains Assistance [level of assistance required for transfers and ambulation]: SBA Supervision [direct monitoring required during toileting and ADLs]: Eyes on Surveillance [continuous indirect monitoring]: Purposeful rounding, call light in reach, room near nurses station, bed alarm, masimo Patient-specific fall prevention interventions for sensory deficits provided, if applicable: NA CPG GOAL OUTCOME EVALUATION: Continue with the goals of care. Tina Chung, PT - 06/29/2020 5:09 PM EST Physical Therapy Evaluation Patient profile: Ricky Abel is a 59 y.o. female admitted in transfer from [facility] to the [facility] for acute hypoxic and hypercarbic respiratory failure. PMH of FOLEY (lymphangioleiomyomatosis), HTN, HLD, angiomyolipoma of kidney, renal carcinoma, who presents with hypoxic, hypercarbic respiratory failure. Patient with FOLEY on baseline 6L via NC home O2 on sirolimus 2mg daily, called EMS today for increased WOB, found to be hypoxic to the 70s on her home O2 regimen. Presented to [facility] where acidotic and hypercarbic. Started on BiPAP 14/8 at 65%. WBC 26. Patient reportedlyhad significant anxiety requiring ativan 0. 5mg and then 1 mg. Rapid COVID was negative.?? Patient with the following active problems: Past [...] Sandor Dasilva MD at [facility] Active Non-Hospital Problems Diagnosis ??? Acute blood loss anemia ??? Chronic respiratory failure with hypoxia ??? Hypotension ??? Chest pain Social History: Home set-up: 2 story home w 2 LEIDY, FOS to master bed and only full bath. Has a 1st floor bedroom option but only a toilet on that level. Bathroom Set-up: tub shower, has a seat but does not use Stairs: FOS With rail Baseline Mobility: fully indep w all adl/iadls Equipment at home: shower chair, cane, home O2 Fall history: denies Precautions/Special Considerations: supplemental O2, 4L at baseline, Fall Risk Mobility and Positioning Recommendations: ?? Pt. to utilize no AD and supervision for ambulation and transfers with nursing. ?? Please encourage up to chair for meal times as able. ?? Pt encouraged to ambulate frequently with staff, getting into the bathroom for toileting and walking out in the gasca >/= 3 times daily as able. Subjective: ???I feel mostly steady on my feet, but I have lost so much strength recently.. I would love some direction on how to get stronger again?? Objective: Pt seen for evaluation today. Pain: denies Vital Signs: At Rest With Activity SpO2 (4L) 95% 92% BP (MAP) 134/64mmHg 138/66mmHg HR 88 bpm 94 bpm Mental Status: alert, oriented to person, place, and time Skin: not formally assessed Musculoskeletal: ROM: wfl Strength: wfl Sensation: intact to LT Bed Mobility: Supine to Sit: supervision Sit to Supine: supervision Transfers: Sit to Stand: supervision Stand to Sit: supervision Bed to Chair: nt Gait: Distance: 20' x 2 Device used: none Level of assist: supervision Gait mechanics: increased BRUCE, mildly decreased step length Stairs: nt Balance: Sitting Static: good Sitting Dynamic: good Standing Static: good Standing Dynamic / Gait: fair Education: patient has been educated on Bed mobility, Transfers, Positioning, Activity pacing/Energyconservation, Role of therapy and Discharge planning and verbalizes understanding. Patient status, treatment, and mobility recommendations discussed with nursing. Assessment: Ricky Abel was seen today for physical therapy evaluation. Pt presents to PT likely nearing her baseline level of independence though with likely significantly decreased endurance from her normal baseline. Pt is motivated to participate improve her activity tolerance. The pt would benefit from skilled therapy services while in the hospital to maximize functional abilities. Discharge Recommendations: Based on the current findings, Anticipated Discharge Disposition (PT): home, home with outpatient therapy services(? Pulmonary Rehab) when medically ready for hospital discharge. Consult Recommendations: No other consults recommended at this time. Equipment needs: No equipment necessary Goals: To be achieved by 07/06/20: 1. Pt. to demonstrate knowledge of safety limitations and precautions and will appropriately requestassistance for functional activities and to mobilize. 2. Pt. to demonstrate understanding of appropriate HEP. 3. Pt. to perform bed mobility with modified independence. 4. Pt. to ambulate 150 feet with modified independence using a no assistive device. 5. Pt. to ambulate up/down 12 step/stairs using one rail with modified independence. 6. Family or caregiver to demonstrate understanding of therapeutic interventions to support the careof the patient. 7. Pt will tolerate progression towards upright with stable vital signs. Plan: Therapy Frequency (PT): 1-2 more times for therapy including balance training, motor coordination training, neuromuscular re-education, patient/family education, postural re-education, strengthening and stretching. Patient/family understand and agree with plan as stated above. 2017 PT Evaluation Code Rationale: ?? Diagnosis & Pertinent Co-Morbidities, personal factors, and present illness affecting Plan ofCare: (see above); Additional personal factors or co- morbidities that impact plan: ?? Total # of Factors: 0 1-2 3+ x ?? Examination of body system impairments, functional limitations and behaviors, and/or participation restrictions. Addressing 1-2 elements Addressing 3 + elements Addressing 4 + elements x ?? Clinical presentation: See assessment above. Stable/Uncomplicated Evolving/Fluctuating Symptoms Unstable/Unpredictable x ?? Clinical decision making of low complexity based on pt's functional performance as outlined in this evaluation. Time IN / OUT: 1540 - 1552 Total Minutes, Physical Therapy: 12(IE Low) TINA CHUNG, PT Pager: [phone] Physical Therapy Inpatient Rehabilitation Department Taylor Engel RN - 06/29/2020 3:44 PM EST Report given to VIOLA Carpio on [address]. All patient belongings packed including patient's purse, clothing, shoes and jewelry. Awaiting transport to take pt to [facility]. Maryellen Mcintyre RD - 06/29/2020 1:55 PM EST Nutrition Consult Note Patient admitted with PMH of FOLEY (lymphangioleiomyomatosis), HTN, HLD, angiomyolipoma of kidney, renal carcinoma, who presents with hypoxic, hypercarbic respiratory failure Ricky Abel is a 59 y.o. female Reason for intervention: cx: weight loss due to grief and severe chronic lung disease/alcohol use/abuse. Recent low income due to loss of and decreased income/insurance. Help with improving diet for at least weight maintenance Nutrition Recommendations: Diet: - continue regular diet - pt agreeable to goal of 3 Ensure Enlive per day. This will provide 1050 kcals - the minimum to maintain weight. Supplements: - suggest daily MVI with minerals Lytes: monitor mag and phos in addition to daily BMP - replete as indicated Weight: daily weights appreciated Active Orders Diet Regular diet Frequency: Effective Now Number of Occurrences: Until Specified Lab Results Component Value Date NA 137 06/29/2020 K 4.4 06/29/2020 CL 98 06/29/2020 CO2 29 06/29/2020 BUN 20 (H) 06/29/2020 CREATININE 0.54 (L) 06/29/2020 ESTGFR 103 06/29/2020 MAGNESIUM 0.92 06/28/2020 CALCIUM 8.7 06/29/2020 PHOS 4.9 (H) 06/28/2020 No results found for: POCGLU Skin Status: Shift Pressure Injury Prevention Occiput: No Injury Thoracic Spine: No Injury Sacral: No Injury Ischial - left: No Injury Ischial - right: No Injury Heel - left: No Injury Heel - right: No Injury Elbow - left: No Injury Elbow - right: No Injury Device Sites: O2 sat monitor, oxygen tubing, IV sites, ECG Leads, BP Cuff Other Sites: ID band Relevant medications: lasix, methyprednisolone, protonix, phenobarb Last Bowel Movement: 06/29/20 Admit Weight: 41 kg Estimated body mass index is 16.42 kg/m?? as calculated from the following: Height as of this encounter: 158 cm (5' 2.21). Weight as of this encounter: 41 kg (90 lb 6.2 oz). Barnard Body Weight: 50 kg - [place] Usual Body Weight: per pt, 115 lbs last year (around ) Wt Readings from Last 10 Encounters: 06/28/20 41 kg (90 lb 6.2 oz) Assessment: Estimated needs: Calories: 1230 - 1600 (30 - 40 kcal/kg) Protein: 60 - 80 grams (1.5 - 2 g/kg) Nutrition Focused Physical Exam (NFPE): Not performed - deferred. Nutrition intake and intake history/Interview: Pt tearful as she described loss of her . She endorses very poor appetite since his passing and admits to eating only because she knows she needs to, versus actually being hungry. Pt states UBW is 115 lbs. She wasn't sure when she last was that weight, but thinks it was sometime around August 2019. This is a 21% wt loss in 10 months - clinically significant. Disc benefit of oral nutrition supplements as pt understands that nutrition is important. She agreed to try to drink 3 ensure per day in an effort to at least maintain her weight. Pt also expressed that she is worried if she will be able to afford food in the future. Case management following Protein-calorie Malnutrition: < or equal to 50% of estimated energy needs for > or equal to 1 month and >10% weight loss in 6 months is consistent with severe protein-calorie malnutrition in the setting of social or environmental circumstances (Derek, JPEN J Parenteral Enteral Nutr. 2012 September; 36(3): 273-83) Nutrition to continue to follow up while inpatient Maryellen Mcintyre RD Pager #: [phone] Lucy, Alisha Medina MD - 06/29/2020 6:59 AM EST ICU Blue (#[id number]) Progress Note Patient info: Name: Ricky Abel : 1960 PCP: FRANCE Chen PCP phone number: [phone] Date of Admission: 06/28/2020 ( Hospital Day 1 day ) Attending:Fernando Delarosa Jr., MD ID: Ricky Abel is a 59 y.o. female with PMH of FOLEY (lymphangioleiomyomatosis), HTN, HLD, angiomyolipoma of kidney, renal carcinoma, who presents with hypoxic, hypercarbic respiratory failure. Patient with FOLEY on baseline 6L via NC home O2 on sirolimus 2mg daily, called EMS today for increased WOB, found to be hypoxic to the 70s on her home O2 regimen. 24 Hour Events/Subjective: - Hasn't been on home meds like siro and nebs in >1mo. Oupatient pulm said she needs lung transplant but hasn't been able to be evaled bt a transplant center do to insurance issues. - restarted steroids and sirolimus. - ETOH w/d phenobarbital protocol. - ON: CT small/moderate pericardial effusion anteriorly, chronic findings of FOLEY Vasoactive & Sedating Medications: Infusions: Continuous Infusions: ??? dexmedetomidine Stopped (06/28/20 1010) ABG (Arterial Blood Gas) Recent Labs 06/28/20 1246 06/28/20 0512 06/28/20 0250 PHART -- 7.37 -- PRZ1NMM -- 43 -- PO2ART -- 70* -- [id number] -- 24.4 -- LACTATEVEN 1.4 1.0 1.2 [id number] -- 40 -- PFRATIOART2 -- 175 -- VBG (Venous Blood Gas) Recent Labs 06/28/20 1246 06/28/20 0512 06/28/20 0250 PHVEN 7.30* -- 7.24* RXT2FDL 54* -- 68* PO2VEN 55* -- 78* [id number] 26.5 -- 28.9 LACTATEVEN 1.4 1.0 1.2 Mixed Venous Sat No results for input(s): A2RQTF5 in the last 168 hours. Objective: Vitals Last value Range last 24 hrs Temperature Temp: 37.2 ??C (99 ??F) Temp: [36.7 ??C (98.1 ??F)-37.8 ??C (100 ??F)] Heart Rate Heart Rate: 97 Heart Rate: [88-109] Blood Pressure BP: 113/60 BP: (113-153)/(59-127) Art Line BP BP (Arterial Line): -- MAP (NBP): [72 mmHg-130 mmHg] Respiratory Rate Resp: 25 Resp: [18-36] SpO2 SpO2: 100 % SpO2: [95 %-100 %] Oxygen Delivery Oxygen Therapy O2 Device: Nasal cannula O2 Flow Rate (L/min): 5 L/min FiO2 (%): 35 % Intake/Output Summary (Last 24 hours) at 06/29/2020 0659 Last data filed at 06/29/2020 0600 Gross per 24 hour Intake 1471 ml Output 250 ml Net 1221 ml Patient Vitals for the past 168 hrs: Weight 06/28/20 0228 41 kg (90 lb 6.2 oz) Admit wt: 41 kg Physical Exam: Gen: in bed in NAD. HEENT: anicteric, EOMI intact, PERRL CV: RRR, no murmurs/rubs/gallops Resp: CTAB, no crackles/wheezes/ronchi, normal work of breathing on 5L nc Abd: normal bowel sounds, soft, non-tender to palpation, no rebound or guarding Ext: 2+ distal pulses, no pedal edema, no tremors Neuro: no focal deficits noted, CN II-XII grossly intact Psych: cooperative, no anxiety Skin: no rashes, lesions, or ulcerations noted Lines/Drains/Airways - PIV single lumen 06/28 - PIV single lumen 06/28 Labs: Recent Labs 06/29/2022206/28/20 0300 WBC 10.7* 24.0* HGB 12.0 12.3 HCT 36.7 38.2 PLATELET 344 413* MCV 101.4* 103.8* Recent Labs 06/29/2022206/28/20 0300 NA 137 138 CL 98 99 CO2 29 28 K 4.4 Not Perf MAGNESIUM -- 0.92 PHOS -- 4.9* CALCIUM 8.7 8.9 BUN 20* 24* CREATININE 0.54* 0.52* Microbiology: - respiratory panel 06/28: negative - COVID-19 06/28: negative Imaging: CXR 06/28: Diffuse reticular opacities suggestive of interstitial process such as atypical infection or fibrosis. Background lymphangioleiomyomatosis. CT chest wo con 06/28: Small to moderate sized pericardial effusion anteriorly. Chronic findings of FOLEY. No consolidations. Medications Scheduled Meds: ??? azithromycin 500 mg Intravenous Q24H ??? methylPREDNISolone 40 mg Intravenous Q8H ??? pantoprazole 40 mg Intravenous Daily ??? ipratropium-albuteroL 3 mL Nebulization Q4H OSMIN ??? furosemide 40 mg Oral Daily ??? heparin (porcine) 5,000 Units Subcutaneous 2 times per day ??? PHENobarbitaL 0.96 mg/kg/dose Oral BID Followed by ??? [START ON 06/30/2020] PHENobarbitaL 0.48 mg/kg/dose Oral BID Followed by ??? [START ON 07/01/2020] PHENobarbitaL 0.24 mg/kg/dose Oral BID ??? sirolimus 2 mg Oral Daily Continuous Infusions: ??? dexmedetomidine Stopped (06/28/20 1010) PRN Meds:.LORazepam, morphine OR morphine OR morphine Assessment & Plan: Ricky Abel is a 59 y.o. female with FOLEY (lymphangioleiomyomatosis) who was admitted to the ICU with hypoxic, hypercarbic respiratory failure in the setting of medication non-compliance due to loss of insurance after her last month. Pt has improved significantly with addition of high dose steroids and her home sirolimus. She is nowbreathing comfortably on 5L nc. ?? #EtOH withdrawal - continue phenobarbital protocol - BIT team consult - Social work consult ?? #FOLEY #Hypoxic, hypercarbic resp failure - continue 5L nc - duo/neb x3 - solumedrol 40 mg IV Q8h - sirolimus 2mg po daily - continue azithromycin - daily diuresis, goal net neg - continue solumedrol 40mg IV q8 for 72 hours, then taper - follow up with outpatient x ray inspector; Dr. Sharma @ [facility] - PT/OT Dr. Kim [facility] [address] [facility], [place] [address] #Routine Diet: Regular diet DVT PPX: SCD's, lovenox GI PPX: protonix CODE STATUS: Full Code Dispo: Med/Surg floor today Alisha Ayala MD Internal Medicine, PGY-1 Blue Team #[id number] 06/29/20 6:59 AM Associated attestation - Malik Ley MD - 06/29/2020 1:58 PM EST MICU ATTENDING ATTESTATION NOTE The patient was seen in conjunction with Dr. Ayala, the resident physician and the MICU Blue team. I have independently performed the mendoza portions of the history and physical exam. I have reviewed the nursing notes, vital signs, and all diagnostic studies personally including labs, imaging studies and EKGs. I have discussed the details of the case with the resident and agree with the assessment and plan as described in the resident note above unless noted otherwise below. IS PATIENT CRITICALLY ILL ? Is there a high potential of sudden, clinically significant, or life threatening deterioration? Yes Is there a need for direct personal assessment and management to treat/prevent multiple vital organfailure/deterioration? Yes If this patient is not critically ill, I certify the patient requires continued in-patient hospitalization for [] PATIENT IS CRITICALLY ILL WITH THESE DIAGNOSES BEING MANAGED BY [facility]CS TEAM: Delirium Alcoholic Respiratory Failure Acute with hypoxia I personally performed 30 minutes of aggregate critical care time exclusive of procedures and teaching. This includes time spent during direct patient evaluation and reassessment, interpreting diagnostic tests, directing life and/or organ supporting interventions and documentation on the unit. MD Angeline Parra Sean N, [facility] - 06/28/2020 3:18 PM EST Respiratory Therapy NIV Note NIV Settings: NIV Mode: BiPAP IPAP (cmH20): 15 EPAP (cmH20): 5 Pressure Support (cm H2O): 10 FiO2 (%): 35 % NIV Measurements: Resp: (!) 36 Mve: 9.4 Leak (L/min): 0 L/min Vte: 430 SpO2: 99 % Assessment: Pt off bipap, did not tolerate very well. Plan Pt has underlying FOLEY disease. Will trial vest therapy to see if it helps pts respiratory status along with alb/atrovent tx. Will continue to monitor respiratory status. Michael Marcus RCP Cam Ha RRT - 06/28/2020 3:52 AM EST Respiratory Therapy NIV Note NIV Settings: NIV Mode: S/T IPAP (cmH20): (S) 15 EPAP (cmH20): 5 Pressure Support (cm H2O): 7 FiO2 (%): (S) 40 % NIV Measurements: Resp: (!) 35 Mve: 25.9 Leak (L/min): 86 L/min Vte: 1324 SpO2: 93 % Current Medications: , Nebulized Medications: Albuterol & Ipratroprium Q4 Skin Assessment: NIV Skin Assessment WDL: WDL Mepilex Applied: No Nares Assessment WDL: WDL Breath Sounds: Diminished Assessment: Received Pt from OSH on BiPAP 16/5 50%. Pt settled with 15/5 40%, 0512 ABG 7.37/43/70/24.4/-0.9. Plan: Will continue to support Pt. Cam Urban RRT Leni Watson MD - 06/28/2020 2:55 AM EST [facility] TeleICU Initial Assessment Note I established audio/visual communication with the patient's room, reviewed eDH, and discussed the patient's case with ICU Fellow. Transfer Center call with ICU Fellow and ED physician at [facility], who provided most of information aboutthis patient. 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 In ED at [facility], treated with duonebs, bipap, Levaquin after blood cultures done. VBGs 7.13/96 to 7.19/73 on 50%. Asked to repeat third VBG prior to transfer, concerned that patient might require intubation for stabilization. She did receive Versed and ketamine to help with bipap compliance in ED. Respiratory panel was negative including COVID. Trop neg, BNP 350, WBC 26k Patient seen on camera: middle aged female, on bipap with tachypnea P 97 121/77 30 99% CXR reviewed: very hyperinflated. Bilateral coarse interstitial infiltrates with fibrotic appearance, new since 02/02/20. Current plan is Precedex, ABG. May need to intubate. If intubation is required then ARDSnet strategy. Patient is at risk for pneumothorax given underlying FOLEY and opportunistic infection given sirolimus. Suspect ARDS. Recommend: Repeat PCXR mainly to rule out pneumothorax. Repeat all labs including sirolimus level, COVID antibody if available. Treat for suspected Etoh withdrawal. NPO with possible need for intubation or bronchoscopy. Cover with broad spectrum abx for PNA including Staph, Strep and Legionella. Consider PJP. Sputum culture if produces. Continue bronchodilators, add steroids if bronchospastic. Avoid nephrotoxics, patient has one kidney. Echo would be helpful to determine if LVEF is intact, suspect PAH with significant lung disease. Try to get Pulmonary records from [facility]. This is a non-billable note and charges should not be filed. documented in this encounter H&P Notes Jessie Piña - 06/29/2020 12:52 PM EST Images from the original note were not included. Hospital Medicine Admission/Transfer History and Physical Patient Name: RICKY ABEL Date of : 1960 Age: 59 y.o. Hospital Admit Date: 06/28/2020 Inpatient Attending: Misbah Ward MD PCP: FRANCE Chen History of Present Illness: Ricky Abel is a 59 y.o. female admitted in transfer from [facility] to the [facility] ICU for acute hypoxic and hypercarbic respiratory failure. Please see admission HPI and ICU hospital course below: History of Presentation (per 06/28/2020 admission H&P): Ricky Abel??is a 59 y.o.??female??with PMH of FOLEY (lymphangioleiomyomatosis), HTN, HLD, angiomyolipoma of kidney, renal carcinoma, who presents with hypoxic, hypercarbic respiratory failure. Patient with FOLEY on baseline 6L via NC home O2 on sirolimus 2mg daily, called EMS today for increased WOB, found to be hypoxic to the 70s on her home O2 regimen. Presented to [facility] where acidotic and hypercarbic. Started on BiPAP 14/ at 65%. WBC 26. Patient reportedly had significant anxietyrequiring ativan 0. 5mg and then 1 mg. Rapid COVID was negative.? Hospital Course: Ricky Abel was admitted to the MICU service with the above presentation. During the course ofhospital admission, the following medical issues were diagnosed and treated as follows: ?? #Acute hypoxemic and hypercarbic respiratory failure #Lymphangioleiomyomatosis, end stage Pt was admitted to the ICU with hypoxemic and hypercarbic resp failure in the background of known pulmonary FOLEY on a baseline of 6LNC at home and 2mg of PO sirolimus at home. She follows with outpatient Pulmonology Dr. Kim Sharma at [place] ([facility]), pt has a known FEV1 of 19% in 2019 and DLCO 24%. She has previously followed in FOLEY clinic at [facility] as well as [facility] but has not had a prior transplant evaluation due to lack of insurance. In addition, due to lack of insurance,the pt has not had access to her regular inhalers and sirolimus for >1 month. On admission, the pt was placed on BIPAP but was ultimately able to be weaned off and she was on high-dose Precedex with bilateral and equal air entry. She also did not have any evidence of volume overload on exam. RVP and COVID were negative. Pt was thought to likely have an acute exacerbation in the background of pulmonary FOLEY as opposed to primary worsening/exacerbation of FOLEY. The fact that she has missed her home meds for over a month likely leads to poor airway clearance and feelings of central airway obstructionthat were resolved with positive pressure from NIV and sycnhronized breathing and??effective exhalation once anxiolytics were given. Again, her outpatient pulm Dr. Sharma indicated that transplant evaluation was needed due to her severe end stage lung disease but she has had multiple barriers toward this, as above. Noncon CT chest on 06/28/20 showed no focal consolidation, small pericardial effusion anteriorly, and chronic findings of FOLEY unchanged, study was motion degraded. ?? #ETOH use d/o Patient also has a history of significant alcohol use up to a bottle of wine every day. Her VS showed evidence of withdrawal so she was started on phenobarbital protocol in the ICU. Interval Events/Patient Subjective: Patient overall feels improved since admission but she still feels that she is working hard to breath and is not at her baseline. She was weepy throughout her interview and admits to significant grief and sadness due to the loss of her from cancer about a month ago. In addition to grief she has had significant anxiety and stress from the loss of her insurance and is now unable to pay for her medications which led her to be in the state. She states that she is agreeable to talk with the BIT team for help with her greiving and coping strategies. As far as her lung disease goes she states that for the past month she has been using 5 L NC a majority of the time and is significantly short of breath at rest still. She has use morphine in the past for air hunger and is willing to use here as well. Past Medical History: Past Medical History: Diagnosis Date ??? Angiomyolipoma of left kidney ??? Carpal tunnel syndrome ??? Clear cell carcinoma of kidney, right ??? HTN (hypertension) ??? Hyperlipidemia ??? Lymphangioleiomyomatosis Patient Active Problem List Diagnosis Code ??? Chest pain R07.9 ??? Hypotension I95.9 ??? Acute blood loss anemia D62 ??? Chronic respiratory failure with hypoxia J96.11 ??? Hypoxia R09.02 Past Surgical History: Past Surgical History: Procedure Laterality Date ??? KIDNEY REMOVAL Right ??? PRO UPPER GI ENDOSCOPY, DIAGNOSTIC N/A 11/19/2018 EGD, UPPER GI ENDOSCOPY performed by Sandor Dasilva MD at [facility] Social History: Social History Socioeconomic History ??? Marital status: Spouse name: Not on file ??? Number of children: Not on file ??? Years of education: Not on file ??? Highest education level: Not on file Occupational History ??? Not on file Tobacco Use ??? Smoking status: Never Smoker ??? Smokeless tobacco: Never Used Substance and Sexual Activity ??? Alcohol use: Yes Alcohol/week: 1.0 - 3.0 standard drinks Types: 1 - 3 Glasses of wine per week Comment: Difficult to assess ??? Drug use: Never ??? Sexual activity: Not Currently Other Topics Concern ??? Not on file Social History Narrative ??? Not on file Social Determinants of Health Financial Resource Strain: ??? Difficulty of Paying Living Expenses: Not on file Food Insecurity: ??? Worried About Running Out of Food in the Last Year: Not on file ??? Ran Out of Food in the Last Year: Not on file Transportation Needs: ??? Lack of Transportation (Medical): Not on file ??? Lack of Transportation (Non-Medical): Not on file Physical Activity: ??? Days of Exercise per Week: Not on file ??? Minutes of Exercise per Session: Not on file Family History: Family History Problem Relation Age of Onset ??? Asthma Brother Allergies: Allergies Allergen Reactions ??? Hymenoptera Allergenic Extract Anaphylaxis Medications: Medications Prior to Admission Medication Sig Dispense Refill Last Dose ??? multivitamin (THERAGRAN) Tablet Take 1 tablet by mouth daily. 30 tablet 12 ??? pantoprazole (PROTONIX) 20 mg Tablet, Delayed Release (E.C.) Take 1 tablet by mouth 2 times daily. 60 tablet 2 ??? metoprolol tartrate (LOPRESSOR) 25 mg Tablet Take 1 tablet by mouth 2 times daily. 180 tablet 0 ??? furosemide (LASIX) 40 mg Tablet Take 1 tablet by mouth daily. 0 ??? Sirolimus 2 mg Tablet Take 2 mg by mouth daily. 1 ??? simvastatin (ZOCOR) 20 mg Tablet Take 20 mg by mouth daily. 1 ??? sertraline (ZOLOFT) 100 mg Tablet Take 100 mg by mouth daily. 0 ??? CIS Free Text Med - Albuterol 1 Puff(s), Inh, Q4-6H,PRN PHYSICAL EXAM: Last value Range last 24 hrs Temperature Temp: 36.7 ??C (98.1 ??F) Temp: [36.5 ??C (97.7 ??F)-37.8 ??C (100 ??F)] Heart Rate Heart Rate: (!) 108 Heart Rate: [88-109] Blood Pressure BP: 115/77 BP: (110-153)/(57-124) Respiratory Rate Resp: 25 Resp: [18-36] SpO2 SpO2: 100 % SpO2: [95 %-100 %] I/O last 3 completed shifts: In: 1808 [P.O.:1080; I.V.:478; IV Piggyback:250] Out: 250 [Urine:250] Gen: Alert & oriented x3, tearful, thin HEENT: EOMI, anicteric, MMM CV: Tachycardic, distant Pulm: tachypneic, diminished throughout, no wheezing, rhonchi or rales Abd: +BS, soft, nontender Ext: No pedal edema Neuro: Grossly intact, moving all four extremities. Skin: Warm, dry, no rashes Lymph: no cervical/supraclavicular/axillary lympha Psych: speech clear, weepy and tearful throughout much of interview, anxious appearing LABS: Recent Labs 06/29/2022206/28/20 030 WBC 10.7* 24.0* HGB 12.0 12.3 HCT 36.7 38.2 PLATELET 344 413* Recent Labs 06/29/2022206/28/20 0300 NA 137 138 K 4.4 Not Perf CL 98 99 CO2 29 28 BUN 20* 24* CREATININE 0.54* 0.52* Recent Labs 06/29/2022206/28/20 0300 CALCIUM 8.7 8.9 MAGNESIUM -- 0.92 PHOS -- 4.9* Recent Labs 06/28/20 0300 PT 10.6 PTT 21* Recent Labs 06/28/20 0300 INR 0.9 No results for input(s): AST, ALT, ALKPHOS, BILITOT, BILIDIR in the last 168 hours. No results for input(s): CK, TROPONINT in the last 168 hours. No results for input(s): LDH, URICACID in the last 168 hours. No results for input(s): TSH in the last 7068 hours. No results for input(s): HA1C in the last 7068 hours. Imaging/Diagnostics: CT Chest wo Contrast (Generic) Result Date: 06/28/2020 1. Motion degraded study. 2. Grossly no focal consolidation. 3. Small to moderate-sized pericardial effusion anteriorly. 4. Chronic findings of FOLEY throughout both lungs are unchanged. XR Chest One View Result Date: 06/28/2020 FINDINGS: Diffuse reticular opacities suggestive of interstitial process such as atypical infection or fibrosis. Background lymphangioleiomyomatosis. ASSESSMENT and PLAN: Ricky Abel??is a 59 y.o.??female??with PMH of FOLEY (lymphangioleiomyomatosis), HTN, HLD, angiomyolipoma of kidney, renal carcinoma, who was admitted in transfer from [facility] for acute hypoxic, hypercarbic respiratory failure in setting of not taking medications for her FOLEY for the month prior due to loss of /insurance and inability to afford them. She was initially managed with BiPAP that has since been weaned off and treated with IV steroids, azithromycin and is stable for transfer to floors. Problem-based plan per below: #FOLEY #Hypoxic, hypercarbic resp failure - pulmonary consulted, appreciate recommendations - scheduled duonebs every 4 hours - solumedrol 40 mg IV Q8h for now; appreciate pulm for help with taper - sirolimus 2mg po daily ( per outpatient x ray inspector Dr. Sharma at [facility] she has been able to obtain approval for this medication so that patient can have at home again; still unable to afford Spiriva) - continue azithromycin 500 mg to complete 5 day course (ending on 07/02) - continue home furosemide 40 mg po daily - start liquid morphine 5 mg every 3 hours PRN for WOB/dyspnea - follow up with outpatient x ray inspector; Dr. Sharma @ [facility] - PT/OT #EtOH withdrawal #acute grief reaction - continue phenobarbital protocol - daily thiamine and folate - BIT team consult for EtOH and grief reaction - restart home trazodone 50 mg nightly - restart home sertraline 100 mg daily - recent Rx of fluoxetine and bupropion as well, but not sure if patient is taking due to cost; willhold off for now - Social work consult #home medications - restart home metoprolol tartrate 25 mg BID - restart home simvastatin 20 mg nightly #Housekeeping: - DVT PPx: heparin - GI PPx: home PPI - Diet: regular diet, nutrition consulted for reported weight loss - Level of care: medical floors - Vitals: q 6 hours while awake - Code Satus: Full Code Jessie Piña MD Internal Medicine PGY3 Pager [phone] Associated attestation - Misbah Ward MD - 06/29/2020 6:09 PM EST Attending Attestation Please see Dr. Piña's note for details of the patient history of presentation and data. I have discussed, reviewed and agree with the documented History, Physical findings, Assessment and Plan of care. I have examined the patient myself and personally reviewed all studies. In addition, I certify that I am a [facility] credentialed attending provider with admitting privileges and that the patient meets or has met medical necessity to require an inpatient IPI level of care meeting a minimum of two midnights or is on the [facility] inpatient only procedure list (status C) due to: acute respiratory compromise and/orhypoxia requiring assessment every 4 hours and the ability to respond immediately to the patient's need Lizzette Saldivar MD - 06/28/2020 3:05 AM EST Critical Care - Admission Note History of Present Illness: Ricky Abel is a 59 y.o. female with PMH of FOLEY (lymphangioleiomyomatosis), HTN, HLD, angiomyolipoma of kidney, renal carcinoma, who presents with hypoxic, hypercarbic respiratory failure. Patient with FOLEY on baseline 6L via NC home O2 on sirolimus 2mg daily, called EMS today for increased WOB, found to be hypoxic to the 70s on her home O2 regimen. Presented to [facility] where acidoticand hypercarbic. Started on BiPAP 14/8 at 65%. WBC 26. Patient reportedly had significant anxiety requiring ativan 0. 5mg and then 1 mg. Rapid COVID was negative. Review of Systems: Unable to obtain d/t patient being on BiPAP and minimally conversive Past Medical Surgery: Past Medical History: Diagnosis Date ??? Angiomyolipoma of left kidney ??? Carpal tunnel syndrome ??? Clear cell carcinoma of kidney, right ??? HTN (hypertension) ??? Hyperlipidemia ??? Lymphangioleiomyomatosis Past and Surgical History: Past Surgical History: Procedure Laterality Date ??? KIDNEY REMOVAL Right ??? PRO UPPER GI ENDOSCOPY, DIAGNOSTIC N/A 11/19/2018 EGD, UPPER GI ENDOSCOPY performed by Sandor Dasilva MD at [facility] Prior To Admission Medications: Medications Prior to Admission Medication Sig Dispense Refill Last Dose ??? multivitamin (THERAGRAN) Tablet Take 1 tablet by mouth daily. 30 tablet 12 ??? pantoprazole (PROTONIX) 20 mg Tablet, Delayed Release (E.C.) Take 1 tablet by mouth 2 times daily. 60 tablet 2 ??? metoprolol tartrate (LOPRESSOR) 25 mg Tablet Take 1 tablet by mouth 2 times daily. 180 tablet 0 ??? furosemide (LASIX) 40 mg Tablet Take 1 tablet by mouth daily. 0 ??? Sirolimus 2 mg Tablet Take 2 mg by mouth daily. 1 ??? simvastatin (ZOCOR) 20 mg Tablet Take 20 mg by mouth daily. 1 ??? sertraline (ZOLOFT) 100 mg Tablet Take 100 mg by mouth daily. 0 ??? CIS Free Text Med - Albuterol 1 Puff(s), Inh, Q4-6H,PRN Current Medications: ??? enoxaparin (Lovenox) (40 mg/0.4 mL) subcutaneous injection 40 mg ??? dexmedetomidine (Precedex) (4 mcg/mL) in sodium chloride 0.9% 100 mL infusion ??? azithromycin (Zithromax) 500 mg in sodium chloride 0.9% 255 mL injection 500 mg ??? piperacillin-tazobactam (Zosyn) 3.375 g vial attach to sodium chloride 0.9% 50 mL Mini-Bag Plus ??? vancomycin (Vancocin) 1 gram in sodium chloride 0.9% 200 mL infusion ??? vancomycin- intermittent dosing per levels ??? methylPREDNISolone sod succ (pf) (SOLU-Medrol) (40 mg/1 mL) injection 40 mg ??? pantoprazole (Protonix) injection 40 mg Allergies: Allergies Allergen Reactions ??? Hymenoptera Allergenic Extract Anaphylaxis Family History: Family History Problem Relation Age of Onset ??? Asthma Brother Social History and Habits: Social History Socioeconomic History ??? Marital status: Spouse name: Not on file ??? Number of children: Not on file ??? Years of education: Not on file ??? Highest education level: Not on file Occupational History ??? Not on file Tobacco Use ??? Smoking status: Never Smoker ??? Smokeless tobacco: Never Used Substance and Sexual Activity ??? Alcohol use: Yes Alcohol/week: 1.0 - 3.0 standard drinks Types: 1 - 3 Glasses of wine per week ??? Drug use: Never ??? Sexual activity: Not on file Other Topics Concern ??? Not on file Social History Narrative ??? Not on file Social Determinants of Health Financial Resource Strain: ??? Difficulty of Paying Living Expenses: Not on file Food Insecurity: ??? Worried About Running Out of Food in the Last Year: Not on file ??? Ran Out of Food in the Last Year: Not on file Transportation Needs: ??? Lack of Transportation (Medical): Not on file ??? Lack of Transportation (Non-Medical): Not on file Physical Activity: ??? Days of Exercise per Week: Not on file ??? Minutes of Exercise per Session: Not on file Physical Exam: Last Set of Vitals and range of vitals over past 24 hours: Last value Range last 24 hrs Temperature Temp: -- Heart Rate Heart Rate: (!) 103 Heart Rate: [101-112] Blood Pressure BP: (!) 150/107 BP: (129-150)/(95-107) Respiratory Rate Resp: (!) 35 Resp: [20-35] SpO2 SpO2: 93 % SpO2: [93 %-98 %] Gen: BiPAP, increased WOB HEENT: Sclera non-icteric, PERRL, BiPAP mask in place CV: RRR, no m/r/g RESP: B/l diffuse wheezing, increased WOB ABD: Soft, normoactive bowel sounds EXT: WWP, palpable pulses bilaterally Neuro: Grossly intact Laboratory (Last 24 Hours): Recent Results (from the past 24 hour(s)) POCT Glucose Result Value Ref Range POC Glucose 115 65 - 199 mg/dL BLOOD GAS 2 VENOUS Result Value Ref Range pH Merritt 7.24 (CRIT) 7.32 - 7.42 pCO2 [place] 68 (CRIT) 41 - 51 mmHg pO2 [place] 78 (H) 25 - 40 mmHg HCO3 [place]itt 28.9 mmol/L BE [place]itt 1.6 mmol/L Hgb Blood Gas 13.6 11.7 - 15.5 gm/dL O2HB Merritt 93.7 % COHB Merritt 0.2 % METHB Merritt 0.4 <=1.5 % Na Whole Blood 139 135 - 145 mmol/L K Whole Blood 4.4 3.5 - 5.0 mmol/L ICa Whole Blood 1.21 1.15 - 1.33 mmol/L CL Whole Blood 101 98 - 107 mmol/L Gluc Whole Bld 130 65 - 199 mg/dL Lactate WB 1.2 0.5 - 2.2 mmol/L FIO2 Merritt 50 % BGas Source Venous Basic Metabolic Panel (non-fasting) Result Value Ref Range Glucose Lvl 117 65 - 199 mg/dL BUN 24 (H) 8 - 18 mg/dL Creatinine 0.52 (L) 0.70 - 1.20 mg/dL Sodium 138 135 - 145 mmol/L Potassium Not Perf 3.5 - 5.0 Chloride 99 98 - 107 mmol/L CO2 28 22 - 31 mmol/L Anion Gap 11 5 - 15 mmol/L Calcium 8.9 8.5 - 10.5 mg/dL Estimated GFR 105 >=60 mL/min/1.73 m?? Prothrombin Time Result Value Ref Range PT 10.6 9.4 - 12.5 sec INR 0.9 APTT Result Value Ref Range PTT 21 (L) 25.0 - 37.0 sec Magnesium Result Value Ref Range Magnesium 0.92 0.69 - 1.07 mmol/L Phosphorus Result Value Ref Range Phosphorus 4.9 (H) 2.5 - 4.5 mg/dL Hemogram Result Value Ref Range WBC 24.0 (H) 4.0 - 9.5 x10(3)/mcL RBC 3.68 (L) 4.00 - 5.21 x10(6)/mcL Hemoglobin 12.3 11.7 - 15.5 gm/dL Hematocrit 38.2 35.7 - 45.8 % MCV 103.8 (H) 82.6 - 94.4 fL MCH 33.4 (H) 27.1 - 32.0 pg MCHC 32.2 31.7 - 35.0 gm/dL Platelets 413 (H) 145 - 357 x10(3)/mcL RDWSD 60.1 (H) 37.0 - 46.0 fL RDWCV 15.8 (H) 11.5 - 14.1 % MPV 10.4 7.6 - 12.9 fL nRBC % Auto 0.0 % nRBC Abs Auto 0.000 0.000 - 0.000 x10(3)/mcL Differential, Automated Result Value Ref Range Neutrophils % 95.0 % Neutr Abs (ANC) 22.79 (H) 1 - 6 x10(3)/mcL Lymphocytes % 1.3 % Lymphocytes Abs 0.3 (L) 0.9 - 3.2 x10(3)/mcL Monocytes % 2.9 % Monocyte Abs 0.7 0.3 - 0.9 x10(3)/mcL Eosinophils % 0.0 % Eosinophils Abs 0.0 0.0 - 0.4 x10(3)/mcL Basophils % 0.2 % Basophils Abs 0.0 0.0 - 0.1 x10(3)/mcL Immature Gran % 0.60 % Zenaida Gran Abs 0.14 (H) 0.00 - 0.04 x10(3)/mcL Scan, Peripheral Blood Result Value Ref Range Plat Estimate Increased RBC Morphology Abnormal Stomatocytes gtr than 10 /HPF Pappenheimer Bdy Present >1/HPF Vacuolated Neut Present Giant Platelets Less than 1 /HPF Microbiology: n/a Radiology: CXR pending Assessment/Plan: Ricky Abel is a 59 y.o. female with pmhx of FOLEY (lymphangioleiomyomatosis), HTN, HLD, angiomyolipoma of kidney, renal carcinoma, who presents with hypoxic, hypercarbic respiratory failure. Presentation consistent with hypoxemic, hypercarbic respiratory failure, most likely secondary to worsening FOLEY. Plan to treat with antibiotics, steroids, and breathing treatments along with non-invasive ventilation and closely monitor respiratory status. Will treat anxiety as needed. Neuro: #Anxiety - sedation: precidex for anxiety - ativan 0.5 mg IV once, monitor for respiratory depression Spine: -n/a CV: - SBP goal: <160, MAP goal > 65 Pulm: #FOLEY #Hypoxic, hypercarbic resp failure - NIV - BiPAP - duo/neb x3 - solumedrol 40 mg IV Q8h FEN/GI: - protonix daily : - monitor UOP Endo: - n/a ID: #[id number] #Hypoxic, hypercarbic resp failure - pankaj weinstein azithro Heme: - n/a PPx: - DVT: SCD's, lovenox - GI: protonix L/T/D: PIV Disp: admit to ICU, Critical Care Blue 2 [id number] Lizzette Saldivar MD 06/28/2020 Associated attestation - Malik Ley MD - 06/28/2020 6:21 PM EST MICU ATTENDING ATTESTATION NOTE The patient was seen in conjunction with Dr. Saldivar, the resident physician and the MICU Blue team.I have independently performed the mendoza portions of the history and physical exam. I have reviewed the nursing notes, vital signs, and all diagnostic studies personally including labs, imaging studies and EKGs. I have discussed the details of the case with the resident and agree with the assessment andplan as described in the resident note above unless noted otherwise below. 59 yr old female admitted to the ICU with hypoxemic and hypercarbic resp failure in the background of known pulmonary FOLEY on a baseline of 6l NC and 2mg of PO sirolimus at home. Per discussion with patient, review of outside records (known FEV1 of 19% in 2019 and followed in FOLEY clinic at [facility] and prior transplant eval held secondary to insurance and access issues) and discussion with outpatient x ray inspector Kim Sky in [place], [place] there has been lack of access to albuterol, sirolimus forthe last month and have owing to lack of insurance secondary to of . Patient alsohas a history of significant alcohol use up to a bottle of wine every day. On examination this morning the patient had been weaned off of BiPAP and was on high-dose Precedex with bilateral and equal air entry that seem distant but otherwise did not have any asymmetry in pulmonary auscultation. Patientalso did not show any evidence of cardiac volume overload on pedal, JVP exam. In terms of etiologies the patient likely has an acute exacerbation in the background of pulmonary FOLEY as opposed to primary worsening/exacerbation of FOLEY. Clearly there is a history of patient being out of home medications that are chronic and necessary. This likely leads to poor airway clearance andfeelings of central airway obstruction that are resolved with positive pressure from NIV and sycnhronized breathing & effective exhalation once anxiolytics are given. Going forward will maintain appropriate BPH with standing albuterol and IPV, 40q8 steroids and repeat chest. A significant portion of her anxiety is also alcohol withdrawal and will manage that with phenobarb therapy. Discuss case tmrw with [facility]. COVID neg, RVP neg, ok to d/c Abx except Azithro. Will reinitiate sirolimus and does not need PJP prophylaxis as she has not been on chronic steroid therapy and is on low dose maintenance sirolimus therapy. IS PATIENT CRITICALLY ILL ? Is there a high potential of sudden, clinically significant, or life threatening deterioration? Yes Is there a need for direct personal assessment and management to treat/prevent multiple vital organfailure/deterioration? Yes If this patient is not critically ill, I certify the patient requires continued in-patient hospitalization for [] PATIENT IS CRITICALLY ILL WITH THESE DIAGNOSES BEING MANAGED BY [facility]CS TEAM: Respiratory Failure Acute with hypoxia Acute with hypercapnia I personally performed 45 minutes of aggregate critical care time exclusive of procedures and teaching. This includes time spent during direct patient evaluation and reassessment, interpreting diagnostic tests, directing life and/or organ supporting interventions and documentation on the unit. Malik Ley MD documented in this encounter Miscellaneous Notes Plan of Care - Troy Hernandez RN - 06/30/2020 6:44 PM EST OUTCOME EVALUATION NOTE: OUTCOME SUMMARY: Patient alert and oriented, vital signs stable, able to make needs known. Patient appears mostly comfortable this shift. PRN Morphine given once this AM for air hunger, which was subsequently d/c'd. PRN inhaler now available which patient had requested. PIV being assessed and replaced due to pain. No acute events this shift, will continue to monitor and notify MD of any changes. PLAN MOVING FORWARD: Monitor vital signs Plan for discharge INDIVIDUALIZED FALL PREVENTION INTERVENTIONS: Patient-specific fall risk factors per assessment: [current deficits]: Generalized weakness, unfamiliar surroundings. Assistance [level of assistance required for transfers and ambulation]: Independent Supervision [direct monitoring required during toileting and ADLs]: Independent Surveillance [continuous indirect monitoring]: Purposeful rounding, room near unit station. 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 History of alcohol use. Ms Abel is A&Ox4, pleasant, and cooperative, flat affect, tearful at times, reports her mood as sad and bored in the context of the recent of her and ongoing need for hospitalization, slight visible hand tremor, no other apparent signs or symptoms of alcohol withdrawal at this time - phenobarbital taper in place, denies AH/VH, denies SI/HI. Ms Abel described a history of alcohol use that began with occasional social use in her early 20s and increased to more regular social use in her late 20s. She reports daily use started about a year ago due to the stress of her 's cancer diagnosis and heavier daily use with his passing a month ago. She reports drinking about a half bottle of [place] per day prior to this admission. She denies any illicit drug use or history of substance use treatment. Ms Abel reports being motivated to abstain from alcohol use with the clinical support of outpatient counseling - resources were provided. She denies the need for residential, MAT, or IOP treatment atthis time. She plans to contact local therapists for consultation. Substance use treatment and relapse prevention resources were given and placed in her discharge instructions. Mr. Abel was open to instruction in 4-7-8 Breathing technique for stress reduction and received a printed handout for practice if desired. She received art supplies and lavender essential oil for stress reduction per her request. Assessment: Ms Abel is a 59-year-old woman admitted as transfer from [facility] for acute hypoxic and hypercarbic respiratory failure. History of alcohol use. Currently with slight visible hand tremor, no other apparent signs or symptoms of alcohol withdrawal - phenobarbital taper in place, no acute safety concerns. Motivated to abstain from alcohol use with the clinical support of outpatient counseling and plans to contact local therapists for consultation. Interventions delivered: Consulted with care team Mindfulness Based Stress Reduction Motivational interviewing Resource coordination - substance use treatment Supportive therapy Plan: 1. Patient plans to abstain from alcohol use with the clinical support of outpatient counseling. 2. Patient plans to contact local therapists for consultation. Outstanding Discharge Needs: Other: None Time spent with the patient (min):30 minutes Time spent on case coordination (min): 15 minutes Plan of Care - Orin Vasquez RN - 06/30/2020 3:06 AM EST OUTCOME EVALUATION NOTE: OUTCOME SUMMARY: Pt A+O x4. VSS on 4L NC. Pt does not report any pain at this time. At start of shift, pt was agitated. She stated she felt uncomfortable on this floor and would like to be moved. Care offered to improve her comfort, such as getting a warm blanket and snack, which were denied but eventually accepted. MD in to see pt and discuss her concerns and care, as pt was also refusing to have PIV placed, which is important for her continued care. Pt was more agreeable after this and vascular was successful in placing a new PIV. Later, pt was able to calm down and sleep, seemingly comfortably. Will notify team of any new acute changes. 0600: pt refused morning labs-team paged. PLAN MOVING FORWARD: Monitor respiratory status Discharge planning Emotional support Phenobarbital taper INDIVIDUALIZED FALL PREVENTION INTERVENTIONS: Patient-specific fall risk factors per assessment: [current deficits]: weakness, REYNOSO, hospital environment Assistance [level of assistance required for transfers and ambulation]: independent Supervision [direct monitoring required during toileting and ADLs]: Able to reliably summons for assistance Surveillance [continuous indirect monitoring]: Purposeful rounding, room near nsg station, call light within reach, jacklyno on Patient-specific fall prevention interventions for sensory deficits provided, if applicable: As above CPG GOAL OUTCOME EVALUATION: Continue goals of care Consult Note - Parveen Abbott MD - 06/29/2020 11:44 AM EST Images from the original note were not included. INITIAL PULMONOLOGY CONSULTATION NOTE SECTION OF PULMONARY/CRITICAL CARE MEDICINE Patient Name: Ricky Abel : 1960 Medical Record: [id number] Date of Service: 06/29/2020 Hospital Day #: Hospital Day: 2 Location: [address] Requesting Provider: Misbah Ward MD Reason for Consultation: FOLEY, hypoxemic and hypercarbic respiratory failure History of present illness: Patient is a 59 y.o. female with a history of lymphangioleiomyomatosis, possible asthma who was admitted on 06/28/2020 with hypoxemic and hypercarbic respiratory failure. Pulmonary medicine is asked to consult for management and ongoing steroid recommendations. She was admitted initially to the ICU in transfer from [facility], by report she called EMS and was found to be saturating in the 70s on her home oxygen of 6 L/min nasal cannula. She complainedof shortness of breath in the setting of recently not being able to take her sirolimus secondary to insurance difficulties as well as drinking alcohol in the setting of her recently passing away from cancer. She was treated with steroids and antibiotics and placed on BiPAP, she improved rather quickly however on admission she had a venous blood gas with a pH of 7.11 and a PCO2 in the 70s. Currently she is saturating in the high 90s on 4 L nasal cannula. She has an outpatient x ray inspector Dr. Kim Sharma at [facility]. Dr. Sharma has been working on obtaining authorization for her sirolimus and reportedly recently was able to achieve this. Recently she has been treated for some worsening breathing difficulties with a few courses of pr ednisone and does feel like this helps. There is a question of whether or not she had pre-existing asthma prior to diagnosis of her lymphangioleiomyomatosis. At present she is tearful secondary to multiple social stressors as noted above, breathing heavily but otherwise in no acute distress. A CT scan was done yesterday and showed no appreciable differencesfrom prior in 2019. Review of Systems: A 12 point ROS was negative aside from as listed in the HPI. Past Medical/Surgical History: Past Medical History: Diagnosis Date ??? Angiomyolipoma of left kidney ??? Carpal tunnel syndrome ??? Clear cell carcinoma of kidney, right ??? HTN (hypertension) ??? Hyperlipidemia ??? Lymphangioleiomyomatosis Past Surgical History: Procedure Laterality Date ??? KIDNEY REMOVAL Right ??? PRO UPPER GI ENDOSCOPY, DIAGNOSTIC N/A 11/19/2018 EGD, UPPER GI ENDOSCOPY performed by Sandor Dasilva MD at [facility] Outpatient medications: No current facility-administered medications on file prior to encounter. Current Outpatient Medications on File Prior to Encounter Medication Sig Dispense Refill ??? multivitamin (THERAGRAN) Tablet Take 1 tablet by mouth daily. 30 tablet 12 ??? pantoprazole (PROTONIX) 20 mg Tablet, Delayed Release (E.C.) Take 1 tablet by mouth 2 times daily. 60 tablet 2 ??? metoprolol tartrate (LOPRESSOR) 25 mg Tablet Take 1 tablet by mouth 2 times daily. 180 tablet 0 ??? furosemide (LASIX) 40 mg Tablet Take 1 tablet by mouth daily. 0 ??? Sirolimus 2 mg Tablet Take 2 mg by mouth daily. 1 ??? simvastatin (ZOCOR) 20 mg Tablet Take 20 mg by mouth daily. 1 ??? sertraline (ZOLOFT) 100 mg Tablet Take 100 mg by mouth daily. 0 ??? CIS Free Text Med - Albuterol 1 Puff(s), Inh, Q4-6H,PRN Inpatient medications: Scheduled Meds: ??? [START ON 06/30/2020] azithromycin 500 mg Oral Daily ??? [START ON 06/30/2020] pantoprazole EC 40 mg Oral Daily ??? methylPREDNISolone 40 mg Intravenous Q8H ??? ipratropium-albuteroL 3 mL Nebulization Q4H OSMIN ??? furosemide 40 mg Oral Daily ??? heparin (porcine) 5,000 Units Subcutaneous 2 times per day ??? PHENobarbitaL 0.96 mg/kg/dose Oral BID Followed by ??? [START ON 06/30/2020] PHENobarbitaL 0.48 mg/kg/dose Oral BID Followed by ??? [START ON 07/01/2020] PHENobarbitaL 0.24 mg/kg/dose Oral BID ??? sirolimus 2 mg Oral Daily Continuous Infusions: PRN Meds:.morphine, sodium chloride Allergies: Allergies Allergen Reactions ??? Hymenoptera Allergenic Extract Anaphylaxis Family History: Family History Problem Relation Age of Onset ??? Asthma Brother Social History: She is a former smoker, quit many years ago after approximately 96-cuin-ohgp history per outside x ray inspector notes. Currently living part-time with her brother, recently Recently has been drinking increasing amounts of alcohol Objective: Last value Range last 24 hrs Temperature Temp: 36.5 ??C (97.7 ??F) Temp: [36.5 ??C (97.7 ??F)-37.8 ??C (100 ??F)] Heart Rate Heart Rate: 100 Heart Rate: [88-109] Blood Pressure BP: 110/57 BP: (110-153)/(57-127) Respiratory Rate Resp: 20 Resp: [18-36] SpO2 SpO2: 100 % SpO2: [95 %-100 %] Admit Weight 41 kg General: Sitting in bed, tearful, mildly tachypneic, no acute distress Pulmonary/Chest: Coarse breath sounds bilaterally, no crackles, wheezes Cardiovascular: Tachycardic, regular, no murmurs appreciated Abdomen: Soft, nontender Extremities: Warm and well perfused, no edema Psychiatric: Alert. Cooperative. Neurologic: No focal deficits Labs: Notable for VBG at [facility] as noted in the HPI WBC is 10 here from 24 yesterday, BMP within normal limits Most recent VBG . Diagnostics: CT chest with significant motion artifact particularly at the bases. There are innumberable lung cysts, no infiltrates. There is lingular atelectasis vs scar as well as some bronchial wall thickening. This doesn't appear significantly changed since the prior from 12/05 Assessment: Ricky Abel is a 59 y.o. female with a history of lymphangioleiomyomatosis, possible asthma, recent alcohol use who was admitted for severe hypoxemic and hypercarbic respiratory failure. She has rebounded rather quickly with steroids, antibiotics, noninvasive ventilation and is currently on her baseline oxygen. It is in the 100% clear what caused her decompensation, there is no evidence of infection on her chest CT. Is both possible if she had an acute bronchospastic event on top of her already severe obstructive lung disease secondary to her FOLEY this could have led to the significant acute hypercarbia that was seen with hypoxemia secondary to this. In any event, it is seems prudent to continue her steroidsfor the moment. I would transfer her to 40 mg of prednisone p.o. starting tomorrow with plans to taper pending clinical response. Recommendations: ?? Prednisone 40 mg p.o. daily starting tomorrow morning ?? No indication for antibiotics at present ?? Continue sirolimus ?? Continued addressing social supports ?? She is potentially interested in transplant and has previously been seen [facility]. Potential barriers to this include her malnutrition, alcohol use, lack of insurance at present. It is important to address these factors now before she becomes sick enough that she actually needs the transplant if she hopes to reach this point ?? Thank you for this consult, pulmonary will continue to follow along This case and above stated plan will be discussed with Dr. Ramos as well as the primary team. Furtheraddenda to follow Parveen Abbott Pulmonary/Critical Care Fellow Pager: [phone] Associated attestation - Vicky Ramos MD - 06/30/2020 8:49 AM EST Patient seen and discussed with patient day coordinator Dr. Abbott whose note below reflects our joint input. I independently interviewed and examined the patient and reviewed the medical record and relevant diagnostic studies. 59 y/o woman with longstanding history of FOLEY with extensive pulmonary cysts, severe airflow obstruction and severely impaired diffusing capacity on home O2, with possible asthma, who in the midst of very significant family stressors and loss of medical insurance has experienced a respiratory flare with acute on chronic hypoxic respiratory failure and acute hypercarbic respiratory failure. She is improving after initiation of solumedrol and use of BiPAP, with resolved hypercarbia, reasonably tolerable work of breathing on NC, and improving oxygenation (not yet at baseline of 3L NC O2 at rest/4 withactivity.) Exam is notable for diminished and coarse breath sounds, cachexia. Chest CT and infectious analysis do not indicate new infection as trigger for decompensation. Lack of access to sirolimus correlates with her clinical decompensation. Please transition to prednisone 40 mg po daily beginning 06/30 as outlined below; we will follow closely to assist with a likely moderately slow prednisone taper. Please continue sirolimus. A serum trough should be checked in 10-20 days (can be done as outpatient) Continue ICS/LAMA/LABA with symbicort and spiriva here; on discharge will need new rx for inhalers covered by insurance when rx coverage is established Wean NC O2 as tolerated, for goal sats >/=88% She is interested in lung transplant, and it will be valuable to emphasize the importance of addressing her mental health needs related to recent of her spouse, improving coping mechanisms, working on her malnutrition and insurance coverage as these are all important to transplant candidacy in the future Pulmonary consult service will continue to follow. Vicky Ramos MD Plan of Care - Carole Hendricks RN - 06/29/2020 12:19 AM EST OUTCOME EVALUATION NOTE: OUTCOME SUMMARY: Pt is alert and oriented x 4, very anxious at the start of the shift. Repeated requests for minor things as well as accidental activation of call magdaleno to keep RN in room. Anxiety much improved with reassurance and scheduled phenobarbital with PRN dose x 1. CT scan of chest completed. VSS stable throughout shift, scheduled duonebs administered. Pt reamined on nasal cannula without need for BiPap overnight. PLAN MOVING FORWARD: Continue to monitor for ETOH w/d, emotional support, downgrade. INDIVIDUALIZED FALL PREVENTION INTERVENTIONS: Patient-specific fall risk factors per assessment: [current deficits]: Lines, weakness, dyspnea on exertion Assistance [level of assistance required for transfers and ambulation]: 2 person Supervision [direct monitoring required during toileting and ADLs]: Purposeful rounding, RN/RADIATOR MECHANIC assist Surveillance [continuous indirect monitoring]: [facility] Patient-specific fall prevention interventions for sensory deficits provided, if applicable: [X] Yes CPG GOAL OUTCOME EVALUATION: Initial Assessments - Mica Crews RN - 06/28/2020 2:38 PM EST Office of Care Management Initial Assessment Mica Moore RN reviewed record and discussed patient with Care Team. Source of Information: CM spoke to pt in room she is a/o able to self direct Introduced self/reviewed role; services accepted. Reason for Hospitalization: hypoxic, hypercarbic respiratory failure Hx:FOLEY (lymphangioleiomyomatosis), HTN, HLD, angiomyolipoma of kidney, renal carcinoma, Last COVID test date and time: 06/28/20 rapid covid (-) Past Medical History: Diagnosis Date ??? Angiomyolipoma of left kidney ??? Carpal tunnel syndrome ??? Clear cell carcinoma of kidney, right ??? HTN (hypertension) ??? Hyperlipidemia ??? Lymphangioleiomyomatosis Hospitalizations Within the Past 30 Days: none in system Anticipated Length Of Stay (If known): unknown Current Decision-Making Capacity: Patient is alert and oriented and able to make decisions. Extremely anxious Advance Care Planning: Patient does not have advanced directives. Education provided and surrogacy reviewed. Pt stated that her passed a month ago so her brother would be her new decision maker. She did not feel up to completing an AD at this time. Current Coping/Education/Information Needs:Coping well with hospital stay and feels updated on issues and plan. Current Functional Ability: bedrest Functional Status Prior to Admission: Pt stated she was independent with personal care but needed assist with shopping and cleaning. Her brother assists as able. Pt stated she was driving up till recently. Has a working vehicle. Home Environment: Pt now lives alone in a 2 story home w/4ste. She stated that she is set up on the first floor. She has a [employer] concentrator she bought that she uses at home. Social & Family Supports/Community Resources: pt states her brother helps some Behavioral Health History: pt states she has anxiety most of her life Substance Use/Abuse: per pt She started smoking when she was 16 and quit in 2009 She rarely has a drink She does not do any drugs Other Pertinent/Service Specific Information: Pt just 4 weeks ago Health/Prescription Coverage: Primary Insurance: [facility] Secondary Insurance: N/A Prescription Coverage: yes [facility]acy[facility] Other: Pt states she does not think that she has coverage at this time and is trying to get Medicaid. Amari sent this to Ivan to review Primary Care Provider: FRANCE Chen [phone] Patient/Caregiver Goals of Treatment: Pt states she just wants to feel better Potential Needs for Transition of Care: Rehab/SNF: not at this time Home Health: [facility] reviewed home care with her and she is open to having them come and help if needed DME: concentrator (ownd it) 6L NC at home Dialysis: not at this time Community Resources: none Transportation: brother Other: Anticipated Barriers to Discharge/Special Considerations: ? About insurance coverage, Pt concerned about covering bills JUICE MIXER consulted Assessment: Pt was in bed on 6Lnc and became sob answering questions. Very tearful over recent loss of , worry over covering bills. CM sent info on insurance to Ivan to help with coverage. CMspoke to JUICE MIXER about bills and she stated that during COVID they can't turn off power or heat. CM willpass this on. Pt is open to home care referral to check on her once home. Will monitor for possible snf need. Plan: Monitor pt progress Review recommendations from other providers Make referrals as needed Monitor for o2 needs--baseline is 6L nc Monitor for DME needs Monitor for transportation Monitor for possible BIT consult--depression over recent loss of A member of the Care Management team will continue to monitor progress, follow for continuity of care and assist with transition of care planning. Mica Moore RN Pager: [phone] Consult Note - Lizzette Cervantes, [facility] - 06/28/2020 3:10 AM EST Clinical Pharmacist Note-VancFD Ricky Hopkins Abel [id number] 1960 Ricky Abel is a 59 y.o. femalewho is starting antibiotic therapy which includes intravenous vancomycin. Based on a review of the patient???s chart and/or conversation with the patient???s providers vancomycin is being used for empiric coverage of lung infection with a targeted goal of 15 - 20 mcg/mL. The following Pharmacokinetic data has been evaluated: Wt Readings from Last 1 Encounters: 06/28/20 41 kg (90 lb 6.2 oz) Ht Readings from Last 1 Encounters: 11/18/18 160 cm (5' 3) Creatinine (mg/dL) Date Value 11/20/2018 0.73 CrCl cannot be calculated (Patient's most recent lab result is older than the maximum 30 days allowed.). (Cockcroft [employer] Gault calculation) Dosing recommendations: ??? Based on this information, vancomycin therapy will be initiated with a one- time dose of 1,000 mgto be given now ??? A full dosing regimen will be ordered upon complete pharmacist consultation to follow. We will continue to monitor the patient as long as he/she remains on vancomycin therapy. Thank you for this consult and please page the care area pharmacist with any questions you may have. Alternately, during off-hours (9p-7a) you may call [phone] to contact a pharmacist. LIZZETTE CERVANTES RPH documented in this encounter Plan of Treatment Not on filedocumented as of this encounter Procedures Procedure Name Priority Date/Time Associated Comments Diagnosis HEMOGRAM Routine 07/01/2020 6:04 Results for this AM EST procedure are i n the results section. DIFFERENTIAL, AUTOMATED Routine 07/01/2020 6:04 R esults for this AM EST procedure are i n the results section. HC VENIPUNCTURE Routine 07/01/2020 6:04 AM EST BASIC METABOLIC PANEL Routine 07/01/2020 6:04 Res ults for this (NON-FASTING) AM EST procedure are in the results section. HEMOGRAM Routine 06/29/2020 2:23 Results for this AM EST procedure are i n the results section. DIFFERENTIAL, AUTOMATED Routine 06/29/2020 2:23 R esults for this AM EST procedure are i n the results section. HC CBC,PLT & AUTO DIFF Routine 06/29/2020 2:23 AM EST BASIC METABOLIC PANEL Routine 06/29/2020 2:23 Res ults for this (NON-FASTING) AM EST procedure are in the results section. CT CHEST WO CONTRAST STAT 06/28/2020 7:55 Resu lts for this (GENERIC) PM EST procedure are i n the results section. HC RESPIRATORY VIRUS Routine 06/28/2020 2:10 Resu lts for this PANEL BY PCR PM EST procedure are i n the results section. BLOOD GAS 2 VENOUS Routine 06/28/2020 12:46 Resul ts for this PM EST procedure are i n the results section. EKG 12-LEAD STAT 06/28/2020 12:32 Chest pain, Results for this PM EST unspecified type procedure a re in the results section. EKG 12-LEAD STAT 06/28/2020 7:30 Chest pain, Results for this AM EST unspecified type procedure a re in the results section. RAPID COVID-19 PCR Routine 06/28/2020 5:31 Result s for this ([facility]/APD/NLH) AM EST procedure are in the results section. BLOOD GAS 2 ARTERIAL Routine 06/28/2020 5:12 Resu lts for this AM EST procedure are i n the results section. XR CHEST ONE VIEW STAT 06/28/2020 4:14 Results for this AM EST procedure are i n the results section. SCAN, PERIPHERAL BLOOD STAT 06/28/2020 3:00 Re sults for this AM EST procedure are i n the results section. HEMOGRAM STAT 06/28/2020 3:00 Results for this AM EST procedure are i n the results section. DIFFERENTIAL, AUTOMATED STAT 06/28/2020 3:00 R esults for this AM EST procedure are i n the results section. HC PARTIAL STAT 06/28/2020 3:00 Results for this THROMBOPLASTIN TIME AM EST procedur e are in the results section. HC PROTHROMBIN TIME STAT 06/28/2020 3:00 Resul ts for this AM EST procedure are i n the results section. HC CBC,PLT & AUTO DIFF STAT 06/28/2020 3:00 AM EST HC PHOSPHORUS, SERUM STAT 06/28/2020 3:00 Resu lts for this AM EST procedure are i n the results section. HC MAGNESIUM, SERUM STAT 06/28/2020 3:00 Resul ts for this AM EST procedure are i n the results section. BASIC METABOLIC PANEL STAT 06/28/2020 3:00 Res ults for this (NON-FASTING) AM EST procedure are in the results section. BLOOD GAS 2 VENOUS Routine 06/28/2020 2:50 Result s for this AM EST procedure are i n the results section. POCT GLUCOSE Routine 06/28/2020 2:33 Results for this AM EST procedure are i n the results section. documented in this encounter Results (ABNORMAL) Differential, Automated (07/01/2020 6:04 AM EST) [facility] Method Time Signature Neutrophils % 54.9 % [facility] LABORATORY Neutr Abs (ANC) 5.39 1.70 - [facility] 6.10 [facility] x10(3)/[facility] LABORATORY Lymphocytes % 32.9 % [facility] Lymphocytes Abs 3.2 0.9 - 3.2 [facility] x10(3)/[facility] LABORATORY Monocytes % 10.6 % [facility] Monocyte Abs 1.0 (H) 0.3 - 0.9 [facility] x10(3)/[facility] LABORATORY Eosinophils % 0.9 % [facility] Eosinophils Abs 0.1 0.0 - 0.4 [facility] x10(3)/[facility] LABORATORY Basophils % 0.3 % [facility] Basophils Abs 0.0 0.0 - 0.1 [facility] x10(3)/[facility] LABORATORY Immature Gran % 0.40 % [facility] Comment: Immature granulocytes(IG's)percentage an d absolute count will include metamyelocytes, myelocytes, and promyelo cytes. Blood smears from CBCs yielding IG's will be scanned manually for concor dance. If this scan disagrees with the automated IG or if promyelocytes are not ed, a manual differential will be performed. Zenaida Gran Abs 0.04 0.00 - 0.04 x10(3)/[facility] LABORATORY Specimen Anatomical Collection Method Collection Time Receive d Time (Source) Location / / Volume Laterality Blood specimen 07/01/2020 6:04 AM 021 6:39 (specimen) EST AM EST Resulting Agency Comment Spec In Lab Jessie Piña MD HEMATOLOGY ORDERABLES Performing Organization Address City/State/[place] [address] (ABNORMAL) Hemogram (07/01/2020 6:04 AM EST) [facility] gist Method Time Signature WBC 9.8 (H) 4.0 - 9.5 [facility] x10(3)/[facility] LABORATORY RBC 3.73 (L) 4.00 - [facility] 5.21 [facility] x10(6)/[facility] LABORATORY Hemoglobin 12.4 11.7 - [facility] 15.5 gm/dL [facility] LABORATORY Hematocrit 37.7 35.7 - P[facility]ELA [place] 45.8 % [facility] LABORATORY MCV 101.1 (H) 82.6 - [facility] 94.4 [facility] LABORATORY MCH 33.2 (H) 27.1 - [facility]ELA MALLOYCELSO 32.0 pg [facility] LABORATORY MCHC 32.9 31.7 - P[facility]ELA MALLOYCELSO 35.0 gm/dL [facility]ORY Platelets 300 145 - 357 [facility] x10(3)/[facility] LABORATORY RDWSD 56.9 (H) 37.0 - P[facility]ELA MALLOYCELSO 46.0 [facility] LABORATORY RDWCV 15.1 (H) 11.5 - [facility] 14.1 % [facility] LABORATORY MPV 10.7 7.6 - 12.9 [facility] LABORATORY nRBC % Auto 0.0 % [facility] LABORATORY nRBC Abs Auto 0.000 0.000 - [facility] 0.000 [facility] x10(3)/[facility] LABORATORY Specimen Anatomical Collection Method Collection Time Receive d Time (Source) Location / / Volume Laterality Blood specimen 07/01/2020 6:04 AM 021 6:39 (specimen) EST AM EST Resulting Agency Comment Spec In Lab Jessie Piña MD HEMATOLOGY ORDERABLES Performing Organization Address City/State/ZIP Code Phon e Number [place] [id number] (ABNORMAL) Basic Metabolic Panel (non-fasting) (07/01/2020 6:04 AM EST) athologist Signature Glucose Lvl 84 65 - 199 [facility] mg/dL [facility] Comment: Diabetes: >=200 mg/dL plus symp toms BUN 16 8 - 18 mg/dL [facility] LABOR[facility]ORY Creatinine 0.46 (L) 0.70 - 1.20 mg/dL [facility] LAB[facility] Sodium 137 135 - 145 mmol/L [facility] Potassium 3.0 (Critical) 3.5 - 5.0 mmol/L [facility] LAB[facility] Comment: Called by: SARWAT, Read back by: Dallas Booth, Date/Time:07/01/20 07:25. Result rechecked. Please note: ??Patients with WBC >100,00 0 may have falsely elevated Potassium levels. ??For accurate Potassium quantif ication in these patients send serum separator tube (gold top) for subsequent determinations. ??Contact the Clinical Chemistry Laboratory if there are any qu estions. Chloride 96 (L) 98 - 107 mmol/L [facility]OR[facility] CO2 34 (H) 22 - 31 mmol/L [facility] Anion Gap 7 5 - 15 mmol/L [facility] LABORATORY Calcium 9.3 8.5 - 10.5 mg/dL [facility]ORY Estimated GFR 109 >=60 mL/min/1.73 m?? [facility] Comment: This patient? s estimated glomerular filtration rate (eGFR) is between 109 mL/min/1.73 m2 (patients with less muscl e mass) and 126 mL/min/1.73 m2 (patients with more muscle mass) as dete rmined by the CKD-EPI equation. Assessment of eGFR is not appropriate wh en creatinine concentrations are rapidly changing. For clinical decisions where creatinine clearance will affect therapy, a 24-hour urine creatinine kay mariel may be advised. Assignment of CKD stage 1 ? 5 for patients with an eGFR near the transition point between stages may be based on cli nical assessment of muscle mass and symptoms in addition to eGFR. Specimen Anatomical Collection Method Collection Time Receive d Time (Source) Location / / Volume Laterality Blood specimen 07/01/2020 6:04 AM 021 6:39 (specimen) EST AM EST Resulting Agency Comment Spec In Lab Misbah Ward MD CHEMISTRY ORDERABLES Performing Organization Address City/State/[place] [address] (ABNORMAL) Differential, Automated (06/29/2020 2:23 AM EST) [facility] Method Time Signature Neutrophils % 90.6 % [facility] LABORATORY Neutr Abs (ANC) 9.68 (H) 1.70 - [facility] 6.10 [facility] x10(3)/[facility] LABORATORY Lymphocytes % 5.3 % [facility] LABORATORY Lymphocytes Abs 0.6 (L) 0.9 - 3.2 [facility] x10(3)/[facility] LABORATORY Monocytes % 3.7 % [facility] LABORATORY Monocyte Abs 0.4 0.3 - 0.9 [facility] x10(3)/[facility] LABORATORY Eosinophils % 0.0 % [facility] LABORATORY Eosinophils Abs 0.0 0.0 - 0.4 [facility] x10(3)/[facility] LABORATORY Basophils % 0.0 % [facility] LABORATORY Basophils Abs 0.0 0.0 - 0.1 [facility] x10(3)/[facility] LABORATORY Immature Gran % 0.40 % [facility] Comment: Immature granulocytes(IG's)percentage an d absolute count will include metamyelocytes, myelocytes, and promyelo cytes. Blood smears from CBCs yielding IG's will be scanned manually for concor dance. If this scan disagrees with the automated IG or if promyelocytes are not ed, a manual differential will be performed. Zenaida Gran Abs 0.04 0.00 - 0.04 x10(3)/[facility] LABORATORY Specimen Anatomical Collection Method Collection Time Receive d Time (Source) Location / / Volume Laterality Blood specimen 06/29/2020 2:23 AM 021 2:27 (specimen) EST AM EST Resulting Agency Comment Spec In Lab Lizzette Saldivar MD HEMATOLOGY ORDERABLES Performing Organization Address City/State/[place] [address] (ABNORMAL) Hemogram (06/29/2020 2:23 AM EST) [facility] gist Method Time Signature WBC 10.7 (H) 4.0 - 9.5 [facility] x10(3)/[facility] LABORATORY RBC 3.62 (L) 4.00 - [facility] 5.21 [facility] x10(6)/[facility] LABORATORY Hemoglobin 12.0 11.7 - [facility] 15.5 gm/dL [facility] LABORATORY Hematocrit 36.7 35.7 - [facility] 45.8 % [facility] LABORATORY MCV 101.4 (H) 82.6 - [facility] 94.4 [facility] LABORATORY MCH 33.1 (H) 27.1 - [facility] ERNANDEZCOCK 32.0 pg [facility] LABORATORY MCHC 32.7 31.7 - [facility] 35.0 gm/dL [facility] LABORATORY Platelets 344 145 - 357 [facility] x10(3)/[facility] LABORATORY RDWSD 58.9 (H) 37.0 - PAMELA CHANDLERCK 46.0 [facility] LABORATORY RDWCV 15.8 (H) 11.5 - [facility] CELSO 14.1 % [facility] LABORATORY MPV 10.4 7.6 - 12.9 [facility] LABORATORY nRBC % Auto 0.0 % [facility] LABORATORY nRBC Abs Auto 0.000 0.000 - PAMELA CELSO 0.000 [facility] x10(3)/[facility] LABORATORY Specimen Anatomical Collection Method Collection Time Receive d Time (Source) Location / / Volume Laterality Blood specimen 06/29/2020 2:23 AM 021 2:27 (specimen) EST AM EST Resulting Agency Comment Spec In Lab Lizzette Saldivar MD HEMATOLOGY ORDERABLES Performing Organization Address City/State/[place] [address] (ABNORMAL) Basic Metabolic Panel (non-fasting) (06/29/2020 2:23 AM EST) P athologist Signature Glucose Lvl 123 65 - 199 [facility] mg/dL [facility]ORY Comment: Diabetes: >=200 mg/dL plus symp toms BUN 20 (H) 8 - 18 mg/dL [facility] LABORATORY Creatinine 0.54 (L) 0.70 - 1.20 mg/dL [facility] LAB[facility] Sodium 137 135 - 145 mmol/L [facility] LAB[facility]ORY Potassium 4.4 3.5 - 5.0 mmol/L [facility] Comment: Please note: ??Patients with WBC >100,00 0 may have falsely elevated Potassium levels. ??For accurate Potassium quantif ication in these patients send serum separator tube (gold top) for subsequent determinations. ??Contact the Clinical Chemistry Laboratory if there are any qu estions. Chloride 98 98 - 107 mmol/L [facility] LAB[facility]ORY CO2 29 22 - 31 mmol/L [facility] Anion Gap 10 5 - 15 mmol/L [facility] LABORATORY Calcium 8.7 8.5 - 10.5 mg/dL [facility] LAB[facility]ORY Estimated GFR 103 >=60 mL/min/1.73 m?? [facility] Comment: This patient? s estimated glomerular [...] be advised. Assignment of CKD stage 1 ? 5 for patients with an eGFR near the transition point between stages may be based on cli nical assessment of muscle mass and symptoms in addition to eGFR. Specimen Anatomical Collection Method Collection Time Receive d Time (Source) Location / / Volume Laterality Blood specimen 06/29/2020 2:23 AM 021 2:27 (specimen) EST AM EST Resulting Agency Comment Spec In Lab Misbah Ward MD CHEMISTRY ORDERABLES Performing Organization Address City/State/[place] [address] Chest wo Contrast (Generic) (06/28/2020 7:55 PM EST) Anatomical Region Laterality Modality Chest Computed Tomography Specimen (Source) Anatomical Location Collection Method / Collectio n Time Received Time / Laterality Volume Impressions 06/28/2020 9:08 PM EST 1. ??Motion degraded study. 2. ??Grossly no focal consolidation. 3. ??Small to moderate-sized pericardial effusion anteriorly. 4. ??Chronic findings of FOLEY throughout both lungs are unchanged. Preliminary report signed by: Umang washburn at 06/28/2020 8:24 PM I have personally reviewed the image(s) and the resident's interpretation and agree with the findings, Flaca Glover MD at 06/28/2020 9:08 PM Thank you for letting us participate in the care of this patient. For questions regarding this report, please contact e number below. ? Electronically signed by: Flaca Glover MD, [facility] ([phone]), at 06/28/2020 9:08 PM Narrative 06/28/2020 9:08 PM EST EXAMINATION: CT CHEST WO CONTRAST (GENERIC) CLINICAL HISTORY: Respiratory illness, a cute (Age > 40y) hx of FOLEY was previously on sirolimus (b ut hasn't taken sirolimus in >1mo), admitted for acute hypoxic resp failure TECHNIQUE: 3.75mm thick axial contiguous sections were obtained through the chest via helical acquisition without in travenous contrast administration. Thin-section reconstructions as well as coronal and sagittal reformatted images were generated. COMPARISON: CT chest 04/26/2008 FINDINGS: Motion artifact limits lung evaluation. 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 No focal pulmo nary consolidation or new groundglass opacities. Airways: No endobronchial opacities. Pleura: No pleural effusion or pneumotho rax. Lymph nodes:No thoracic lymphadenopathy. Heart, pericardium, and great vessels: N ormal heart size with small to moderate-sized pericardial effusion ante riorly with maximum thickness measuring 1.0 cm. Other mediastinal structures: No signifi cant findings. Lower neck: No significant findings. Upper abdomen: Patient status post elisa cystectomy. 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 There is corresponding compensatory hype rtrophy of the left kidney. Body wall soft tissues: No significant f indings. Skeletal structures: Stable degenerative changes of the thoracic spine. Procedure Note Flaca Glover MD - 06/28/2020Formatt ing of this note might be different from the original. EXAMINATION: CT CHEST WO CONTRAST (GENER IC) CLINICAL HISTORY: Respiratory illness, a cute (Age > 40y) hx of FOLEY was previously on sirolimus (b ut hasn't taken sirolimus in >1mo), admitted for acute hypoxic resp failure TECHNIQUE: 3.75mm thick axial contiguous sections were obtained through the chest via helical acquisition without in travenous contrast administration. Thin-section reconstructions as well as coronal and sagittal reformatted images were generated. COMPARISON: CT chest 04/26/2008 FINDINGS: Motion artifact limits lung evaluation. 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 No focal pulmo nary consolidation or new groundglass opacities. Airways: No endobronchial opacities. Pleura: No pleural effusion or pneumotho rax. Lymph nodes:No thoracic lymphadenopathy. Heart, pericardium, and great vessels: N ormal heart size with small to moderate-sized pericardial effusion ante riorly with maximum thickness measuring 1.0 cm. Other mediastinal structures: No signifi cant findings. Lower neck: No significant findings. Upper abdomen: Patient status post elisa cystectomy. 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 There is corresponding compensatory hype rtrophy of the left kidney. Body wall soft tissues: No significant f indings. Skeletal structures: Stable degenerative changes of the thoracic spine. IMPRESSION 1. Motion degraded study. 2. Grossly no focal consolidation. 3. Small to moderate-sized pericardial e ffusion anteriorly. 4. Chronic findings of FOLEY throughout loni th lungs are unchanged. Preliminary report signed by: Umang washburn at 06/28/2020 8:24 PM I have personally reviewed the image(s) and the resident's interpretation and agree with the findings, Flaca Glover MD at 06/28/2020 9:08 PM Thank you for letting us participate in the care of this patient. For questions regarding this report, please contact e number below. Electronically signed by: Flaca Glover MD, [facility] ([phone]), at 06/28/2020 9:08 PM Malik Ley MD IMG CT ORDERABLES Respiratory Panel PCR (06/28/2020 2:10 PM EST) Analysis Performed At Patho logist Time Signature Resp Panel [employer] [facility] LABORATORY Resp Panel PCR Negative Negative [facility] LABOR[facility]ORY Comment: Respiratory Panels are performed on the [employer], using multiplexed PCR nucleic acid detection. ??Negative resul ts do not preclude respiratory infection and should not be used as the sole basis for diagnosis, treatment or other management decisions. Adenovirus Not Detected Not Detected [facility]ORY Coronavirus HKU1 Not Detected Not Detected [facility] Coronavirus NL63 Not Detected Not Detected [facility] Coronavirus 229E Not Detected Not Detected [facility] Coronavirus OC43 Not Detected Not Detected [facility] SARS-CoV-2 Not Detected Not Detected [facility] Comment: Testing for SARS-CoV-2 (Severe acute res piratory syndrome coronavirus 2) to aid in the diagnosis of COVID-19 is performe d using the [employer] Respiratory Panel 2.1 ([employer]) as authorized by the FD A issued Emergency Use Authorization (EUA). This panel also tests for multipl e other viral and bacterial pathogens. This assay is intended for In-vitro Diag nostic (IVD) use with nasopharyngeal swabs in viral transport media. The assa y is performed based on the instructions for use and additional guid ance provided by the FDA. Testing is performed in laboratories within the [facility], each of which is certified under the Clinical La boratory Improvement Amendments of 1988 (CLIA), 42 U.S.C. section 263a, to perfo rm high-complexity tests. Assay performance has been verified according to clinical laboratory regulatory requirements. The test result for SARS-CoV-2 provided above should be interpreted in combination with the clinical observatio n, patient history and epidemiological information. For testing of asymptomatic individuals, assay performance characteristics and clinical utility hav e not been evaluated. ??A result of Not Detected indicates that the viral RNA t arget is not present but does not preclude SARS-CoV-2 infection. False neg ative results may occur if a specimen is improperly collected, transported or handled; if amplification inhibitors are present; or if inadequate numbers of viral particles are present in the specimen. When a diagnostic test is nega tive, the possibility of a false negative result should be considered in the context of a patient? s recent exposures and the presence of clinical s igns and symptoms consistent with COVID-19. A result of Detected suggest s a current or recent infection. Positive and negative predictive values for this test are dependent on disease prevalence. A result of Invalid indica allyn the inability to conclusively determine the presence or absence of DAVID S-CoV-2 RNA in the sample which can be due to a variety of factors. ??Collectio n of a new sample for repeat testing is recommended in the case of an invalid re sult. CDC COVID-19 criteria for testing on hum an specimens and clinical management guidance information are available at [facility] CDC Coronavirus Disease 2019 (COVID-19) webpage under Information fo r Healthcare Professionals (https://www.cdc.gov/coronavirus/2019-nc ov/hcp/index.html). Additional information about this and ot her EUA tests can be found in provider and patient fact sheets at the following FDA website: https://www.fda.gov/medical-devices/rktwqqeyavk-rwhcbst-0768-mezkt-14-urmierere- qsg-fdungppgnzibri-fmtzxut-devices/lpjeq-fgwfrglxkxi-lugd Human Metapneumovirus Not Detected Not Detected [facility] LABOR[facility] Human Rhino/Enterovirus Not Detected Not Detected [facility] Influenza A Not Detected Not Detected [facility] Influenza B Not Detected Not Detected [facility] Parainfluenza 1 Not Detected Not Detected [facility] Parainfluenza 2 Not Detected Not Detected [facility] Parainfluenza 3 Not Detected Not Detected [facility] Parainfluenza 4 Not Detected Not Detected [facility] Respiratory Syncytial Virus Not Detected Not Detected [facility] Chlamydophila pneumoniae Not Detected Not Detected [facility] Mycoplasma pneumoniae Not Detected Not Detected [facility] Specimen (Source) Anatomical Collection Method Collection Time Re ceived Time Location / / Volume Laterality Nasopharyngeal swab 06/28/2020 2:10 06/28 (specimen) PM EST 2:32 PM EST Resulting Agency Comment Spec In Lab Fernando Delarosa Jr., MD MICROBIOLOGY - GENERAL ORDER JAXSON Performing Organization Address City/State/[place] [address] (ABNORMAL) BLOOD GAS 2 VENOUS (06/28/2020 12:46 PM EST) Analysis Performed At Patho logist Time Signature pH Merritt 7.30 (L) 7.32 - [facility] 7.42 [facility] pCO2 Merritt 54 (H) 41 - 51 [facility]ATORY pO2 Merritt 55 (H) 25 - 40 [facility]ORY HCO3 Merritt 26.5 mmol/L [facility] BE Merritt 0.1 mmol/L [facility] Hgb Blood Gas 14.0 11.7 - [facility] 15.5 gm/dL [facility] O2HB Merritt 88.1 % [facility] COHB Merritt 0.5 % [facility] Comment: Nonsmokers: 0.5-1.5% COHB Smokers: Variable, but usually less than 10% Toxic: 20-30% COHB Lethal: Greater than 60% COHB METHB Merritt 0.3 <=1.5 % [facility] Na Whole Blood 139 135 - 145 mmol/L [facility] K Whole Blood 4.1 3.5 - 5.0 mmol/L [facility] Comment: Please note: Patients with WBC >100,000 may have falsely elevated Potassium levels. Contact the Clinical Chemistry L aboratory if there are any questions. ICa Whole Blood 1.19 1.15 - 1.33 mmol/L [facility] Comment: Note: ??Total bilirubin higher than 20 m g/dL may lead to falsely low ionized calcium. CL Whole Blood 100 98 - 107 mmol/L [facility] Gluc Whole Bld 114 65 - 199 mg/dL [facility] Comment: Diabetes: >=200 mg/dL plus symp toms Lactate WB 1.4 0.5 - 2.2 mmol/L [facility] Flow Merritt 5.0 LPM [facility] BGas Source Venous [facility] Specimen Anatomical Collection Method Collection Time Receive d Time (Source) Location / / Volume Laterality Blood specimen 06/28/2020 12:46 (specimen) PM EST 12:46 PM EST Fernando Delarosa Jr., MD CHEMISTRY ORDERABLES Performing Organization Address City/[facility] [place] [address] EKG 12 Lead (06/28/2020 12:32 PM EST) Component Value Ref Range Test Analysis Performed Pathologis t Method Time At Signature Ventricular rate 115 BPM MUSE SYSTEM Atrial Rate 115 BPM MUSE SYSTEM P-R Interval 136 ms MUSE SYSTEM QRS Duration 78 ms MUSE SYSTEM Q-T Interval 354 ms MUSE SYSTEM QTC Calculated 489 ms MUSE SYSTEM (Bezet) Calculated P [place] 69 degrees MUSE SYSTEM Calculated R [place] 76 degrees MUSE SYSTEM Calculated T [place] 78 degrees MUSE SYSTEM INTERPRETATION Sinus tachycardia MUSE SY STEM Otherwise normal ECG When compared with ECG of 28-JUN-2020 07:30, No significant change was found Confirmed by Tia Jennings ([id number]) on 06/28/2020 12:43:31 P M Specimen Anatomical Collection Method Collection Time Receive d Time (Source) Location / / Volume Laterality 06/28/2020 12:32 06/28/2020 PM EST 12:43 PM EST Fernando Delarosa Jr., MD ECG ORDERABLES Performing Organization Address City/[facility]/ZIP Code Phon e Number MUSE SYSTEM EKG 12 Lead (06/28/2020 7:30 AM EST) Component Value Ref Range Test Analysis Performed Pathologis t Method Time At Signature Ventricular rate 85 BPM MUSE SYSTEM Atrial Rate 85 BPM MUSE SYSTEM P-R Interval 116 ms MUSE SYSTEM QRS Duration 80 ms MUSE SYSTEM Q-T Interval 434 ms MUSE SYSTEM QTC Calculated 516 ms MUSE SYSTEM (Bezet) Calculated P [place] 21 degrees MUSE SYSTEM Calculated R [place] 80 degrees MUSE SYSTEM Calculated T [place] 80 degrees MUSE SYSTEM INTERPRETATION Normal sinus rhythm MUSE SYSTEM Prolonged QT Abnormal ECG When compared with ECG of 26-APR-2008 08:56, ST elevation now present in Inferior leads Non-specific change in ST segment in Lateral leads Nonspecific T wave abnormality no longer evident in Inferior leads T wave inversion no longer evident in Anterolateral leads I personally reviewed the tracing and agree with the cholo interpretation Confirmed by fellow Geo Giron ([id number]) on 06/28/2020 2 :05:25 PM Confirmed by Tia Jennings ([id number]) on 06/28/2020 3:11:19 PM Specimen Anatomical Collection Method Collection Time Receive d Time (Source) Location / / Volume Laterality 06/28/2020 7:30 AM 3:11 EST PM EST Fernando Delarosa Jr., MD ECG ORDERABLES Performing Organization Address City/State/ZIP Code Phon e Number MUSE SYSTEM COVID-19 PCR (06/28/2020 5:31 AM EST) [facility] Method Time Signature SARS-CoV-2 Not Detected Not Detected PAMELA RNA PCR [facility] Comment: This result should be interpreted in com bination with the clinical observations, patient history and epidem iological information. For testing of asymptomatic individuals, assay performa nce characteristics and clinical utility have not been evaluated. Testing for SARS-CoV-2 (Severe acute respiratory syndrome coronavirus 2, form erly known as 2018 novel coronavirus or 2019-nCoV) to aid in the diagnosis of CO VID-19 is performed using the Simplexa COVID-19 Direct Assay by [employer] as authorized by the FDA issued [...] Department of Pathology and Laboratory Medicine at [facility], certified under the Clinical Laboratory Improvement Amendmen [...] fact sheets at the following FDA website: https://www.fda.gov/medical-devices/xoarkhuvaip-mesqgfv-2099-axiqo-85-ijxqmqadd- ciz-bbizjmqgdtphwm-wudgfmv-devices/fqemq-agsdqbcqpow-vfah SARS-CoV-2 Source [employer] Swab [facility] Specimen (Source) Anatomical Collection Method Collection Time Re ceived Time Location / / Volume Laterality Nasopharyngeal swab 06/28/2020 5:31 06/28 (specimen) AM EST 6:22 AM EST Comment: Symptoms->Surveillance Resulting Agency Comment Spec In Lab Fernando Delarosa Jr., MD MICROBIOLOGY - GENERAL ORDER JAXSON Performing Organization Address City/State/[place] [address] (ABNORMAL) BLOOD GAS 2 ARTERIAL (06/28/2020 5:12 AM EST) athologist Signature pH Art 7.37 7.35 - [facility] 7.45 [facility] pCO2 Art 43 35 - 45 [facility] LAB[facility]ATORY pO2 Art 70 (L) 85 - 104 [facility]ORY HCO3 Art 24.4 20.0 - [facility] 26.0 [facility] mmol/L [facility] BE Art -0.9 -3.0 - 3.0 [facility] mmol/L [facility] Hgb Blood Gas 12.2 11.7 - [facility] 15.5 gm/dL [facility] O2HB Art 94.4 94.0 - [facility] 97.0 % [facility] COHB Art 0.1 % [facility] Comment: Nonsmokers: 0.5-1.5% COHB Smokers: Variable, but usually less than 10% Toxic: 20-30% COHB Lethal: Greater than 60% COHB METHB Art 0.3 <=1.5 % [facility] Na Whole Blood 137 135 - 145 mmol/L [facility] K Whole Blood 4.2 3.5 - 5.0 mmol/L [facility] Comment: Please note: Patients with WBC >100,000 may have falsely elevated Potassium levels. Contact the Clinical Chemistry L aboratory if there are any questions. ICa Whole Blood 1.12 (L) 1.15 - 1.33 mmol/L [facility] Comment: Note: ??Total bilirubin higher than 20 m g/dL may lead to falsely low ionized calcium. CL Whole Blood 102 98 - 107 mmol/L [facility] Gluc Whole Bld 139 65 - 199 mg/dL [facility] Comment: Diabetes: >=200 mg/dL plus symp toms. Lactate WB 1.0 0.5 - 2.2 mmol/L [facility] FIO2 Art 40 % [facility] PF Ratio Art 175 [facility] Specimen Anatomical Collection Method Collection Time Receive d Time (Source) Location / / Volume Laterality Blood specimen 06/28/2020 5:12 AM 021 5:12 (specimen) EST AM EST Fernando Delarosa Jr., MD CHEMISTRY ORDERABLES Performing Organization Address City/State/[place] [address] XR Chest One View (06/28/2020 4:14 AM EST) Anatomical Region Laterality Modality Chest N/A Digital Radiography Specimen (Source) Anatomical Location Collection Method / Collectio n Time Received Time / Laterality Volume Impressions 06/28/2020 5:35 AM EST Diffuse reticular opacities suggestive of interstitial process such as atypical infection or fibrosis. Background lympha ngioleiomyomatosis. Preliminary report signed by: Malinda Coreas at 06/28/2020 4:54 AM I have personally reviewed the image(s) and the resident's interpretation and agree with the findings, Sara Winston at 06/28/2020 5:35 AM Thank you for letting us participate in the care of this patient. For questions regarding this report, please contact e number below. ? Narrative 06/28/2020 5:35 AM EST EXAMINATION: XR CHEST ONE VIEW CLINICAL HISTORY: increased WOB, hx FOLEY TECHNIQUE: 1 view of the chest COMPARISON: Chest radiograph 06/27/2020. CT chest 2018. FINDINGS: Diffuse reticular opacities appear sligh tly improved from prior which may be partially related to technique and respi ratory effort. 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 ??Flattening of the hemidiaphragms. No pneumothorax o r pleural effusion seen. The cardiomediastinal silhouette and arin ap pear unchanged. Procedure Note Facundo Alvarez MD - 06/28/2020 EXAMINATION: XR CHEST ONE VIEW CLINICAL HISTORY: increased WOB, hx FOLEY TECHNIQUE: 1 view of the chest COMPARISON: Chest radiograph 06/27/2020. CT chest 2018. FINDINGS: Diffuse reticular opacities appear sligh tly improved from prior which may be partially related to technique and respi ratory effort. 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 Flattening of the hemidiaphragms. No pneumothorax o r pleural effusion seen. The cardiomediastinal silhouette and arin ap pear unchanged. IMPRESSION Diffuse reticular opacities suggestive o f interstitial process such as atypical infection or fibrosis. Background lympha ngioleiomyomatosis. Preliminary report signed by: Malinda Coreas at 06/28/2020 4:54 AM I have personally reviewed the image(s) and the resident's interpretation and agree with the findings, Sara Winston at 06/28/2020 5:35 AM Thank you for letting us participate in the care of this patient. For questions regarding this report, please contact e number below. Fernando Delarosa Jr., MD IMG DX ORDERABLES Scan, Peripheral Blood (06/28/2020 3:00 AM EST) [facility] Method Time Signature Plat Estimate Increased [facility] RBC Morphology Abnormal [facility] Stomatocytes gtr than 10 /HPF [facility] Pappenheimer Bdy Present >1/HPF [facility] Vacuolated Neut Present [facility] Giant Platelets Less than 1 /HPF [facility] Specimen Anatomical Collection Method Collection Time Receive d Time (Source) Location / / Volume Laterality Blood specimen 06/28/2020 3:00 AM 021 3:03 (specimen) EST AM EST Resulting Agency Comment Spec In Lab Lizzette Saldivar MD HEMATOLOGY ORDERABLES Performing Organization Address City/State/[place] [address] (ABNORMAL) Differential, Automated (06/28/2020 3:00 AM EST) [facility] Method Time Signature Neutrophils % 95.0 % [facility] Neutr Abs (ANC) 22.79 (H) 1.70 - [facility] 6.10 [facility] x10(3)/[facility] L LABORATORY Lymphocytes % 1.3 % [facility] Lymphocytes Abs 0.3 (L) 0.9 - 3.2 [facility] x10(3)/[facility] LABORATORY Monocytes % 2.9 % [facility] Monocyte Abs 0.7 0.3 - 0.9 [facility] x10(3)/[facility] LABORATORY Eosinophils % 0.0 % [facility] Eosinophils Abs 0.0 0.0 - 0.4 [facility] x10(3)/[facility] LABORATORY Basophils % 0.2 % [facility] Basophils Abs 0.0 0.0 - 0.1 [facility] x10(3)/[facility] LABORATORY Immature Gran % 0.60 % [facility] Comment: Immature granulocytes(IG's)percentage an d absolute count will include metamyelocytes, myelocytes, and promyelo cytes. Blood smears from CBCs yielding IG's will be scanned manually for concor dance. If this scan disagrees with the automated IG or if promyelocytes are not ed, a manual differential will be performed. Zenaida Gran Abs 0.14 (H) 0.00 - 0.04 x10(3)/[facility] LABORATORY Specimen Anatomical Collection Method Collection Time Receive d Time (Source) Location / / Volume Laterality Blood specimen 06/28/2020 3:00 AM 021 3:03 (specimen) EST AM EST Resulting Agency Comment Spec In Lab Lizzette Saldivar MD HEMATOLOGY ORDERABLES Performing Organization Address City/State/[place] [address] (ABNORMAL) Hemogram (06/28/2020 3:00 AM EST) [facility] Method Time Signature WBC 24.0 (H) 4.0 - 9.5 [facility] x10(3)/[facility] LABORATORY RBC 3.68 (L) 4.00 - [facility] 5.21 [facility] x10(6)/[facility] LABORATORY Hemoglobin 12.3 11.7 - [facility] 15.5 gm/dL [facility] Hematocrit 38.2 35.7 - [facility] 45.8 % [facility] MCV 103.8 (H) 82.6 - [facility] CEL[facility] 94.4 [facility] LABORATORY MCH 33.4 (H) 27.1 - [facility] C[facility] 32.0 pg [facility] MCHC 32.2 31.7 - [facility] 35.0 gm/dL [facility] Platelets 413 (H) 145 - 357 [facility] x10(3[facility] LABORATORY RDWSD 60.1 (H) 37.0 - [facility] 46.0 [facility] LABORATORY RDWCV 15.8 (H) 11.5 - [facility] 14.1 % [facility]ORY MPV 10.4 7.6 - 12.9 [facility] LABORATORY nRBC % Auto 0.0 % [facility] nRBC Abs Auto 0.000 0.000 - [facility] 0.000 [facility] x10(3)/[facility] LABORATORY Specimen Anatomical Collection Method Collection Time Receive d Time (Source) Location / / Volume Laterality Blood specimen 06/28/2020 3:00 AM 021 3:03 (specimen) EST AM EST Resulting Agency Comment Spec In Lab Lizzette Saldivar MD HEMATOLOGY ORDERABLES Performing Organization Address City/State/ZIP Code Phon e Number [address] (ABNORMAL) Phosphorus (06/28/2020 3:00 AM EST) P athologist Signature Phosphorus 4.9 (H) 2.5 - 4.5 [facility] mg/dL [facility] Specimen Anatomical Collection Method Collection Time Receive d Time (Source) Location / / Volume Laterality Blood specimen 06/28/2020 3:00 AM 021 3:03 (specimen) EST AM EST Resulting Agency Comment Spec In Lab Fernando Delarosa Jr., MD CHEMISTRY ORDERABLES Performing Organization Address City/State/[place] [address] Magnesium (06/28/2020 3:00 AM EST) athologist Signature Magnesium 0.92 0.69 - 1.07 [facility] mmol/L [facility] Specimen Anatomical Collection Method Collection Time Receive d Time (Source) Location / / Volume Laterality Blood specimen 06/28/2020 3:00 AM 021 3:03 (specimen) EST AM EST Resulting Agency Comment Spec In Lab Fernando Delarosa Jr., MD CHEMISTRY ORDERABLES Performing Organization Address [facility] Phon e Number [address] (ABNORMAL) APTT (06/28/2020 3:00 AM EST) athologist Signature PTT 21 (L) 25 - 37 sec [facility] Comment: Decreased clotting times may be caused by improper phlebotomy technique. The PTT is NOT appropriate for heparin m onitoring. Use the Anti-Xa level for heparin monitoring (HEP UFH) or LMWH mon itoring (HEP LMW). A PTT less than 37 seconds generally indicates adequate hem ostasis. Specimen Anatomical Collection Method Collection Time Receive d Time (Source) Location / / Volume Laterality Blood specimen 06/28/2020 3:00 AM 021 3:03 (specimen) EST AM EST Resulting Agency Comment Spec In Lab Fernando Delarosa Jr., MD HEMATOLOGY ORDERABLES Performing Organization Address [facility] [place] [address] Prothrombin Time (06/28/2020 3:00 AM EST) athologist Signature PT 10.6 9.4 - 12.5 [facility] LABORATORY INR 0.9 [facility] Comment: An INR <2.0 indicates adequate [...] (Source) Location / / Volume Laterality Blood specimen 06/28/2020 3:00 AM 021 3:03 (specimen) EST AM EST Resulting Agency Comment Spec In Lab Fernando Delarosa Jr., MD HEMATOLOGY ORDERABLES Performing Organization Address City/State/[place] [address] (ABNORMAL) Basic Metabolic Panel (non-fasting) (06/28/2020 3:00 AM EST) athologist Signature Glucose Lvl 117 65 - 199 [facility] mg/dL [facility] Comment: Diabetes: >=200 mg/dL plus symp toms BUN 24 (H) 8 - 18 mg/dL [facility] Creatinine 0.52 (L) 0.70 - 1.20 mg/dL [facility] Sodium 138 135 - 145 mmol/L [facility] Potassium Not Perf 3.5 - 5.0 [facility] Comment: Unable to quantitate due to sample hemol ysis. ??Sample redraw suggested. Called by: DONNA, Read back by: Amaya Shin om, Date/Time:06/28/20 03:40. Please note: ??Patients with WBC >100,00 0 may have falsely elevated Potassium levels. ??For accurate Potassium quantif ication in these patients send serum separator tube (gold top) for subsequent determinations. ??Contact the Clinical Chemistry Laboratory if there are any qu estions. Chloride 99 98 - 107 mmol/L [facility] CO2 28 22 - 31 mmol/L [facility] Anion Gap 11 5 - 15 mmol/L [facility] Calcium 8.9 8.5 - 10.5 mg/dL [facility] Estimated GFR 105 >=60 mL/min/1.73 m?? [facility] Comment: This patient? s estimated glomerular filtration rate (eGFR) is between 105 mL/min/1.73 m2 (patients with less muscl e mass) and 121 mL/min/1.73 m2 (patients with more muscle mass) as dete rmined by the CKD-EPI equation. Assessment of eGFR is not appropriate wh en creatinine concentrations are rapidly changing. For clinical decisions where creatinine clearance will affect therapy, a 24-hour urine creatinine kay floyd may be advised. Assignment of CKD stage 1 ? 5 for patients with an eGFR near the transition point between stages may be based on cli nical assessment of muscle mass and symptoms in addition to eGFR. Specimen Anatomical Collection Method Collection Time Receive d Time (Source) Location / / Volume Laterality Blood specimen 06/28/2020 3:00 AM 021 3:03 (specimen) EST AM EST Resulting Agency Comment Spec In Lab Fernando Delarosa Jr., MD CHEMISTRY ORDERABLES Performing Organization Address City/State/[facility] [place] [address] (ABNORMAL) BLOOD GAS 2 VENOUS (06/28/2020 2:50 AM EST) [facility] gist Method Time Signature pH Merritt 7.24 7.32 - [facility] (Critical) 7.42 [facility] pCO2 Merr[place] 68 41 - 51 [facility] (Critical) mmHg [facility] pO2 [place]itt 78 (H) 25 - 40 [facility] mmHg [facility] HCO3 Merritt 28.9 mmol/L [facility] BE Merritt 1.6 mmol/L [facility] Hgb Blood Gas 13.6 11.7 - [facility] 15.5 gm/dL [facility] O2HB Merritt 93.7 % [facility] COHB Merritt 0.2 % [facility] Comment: Nonsmokers: 0.5-1.5% COHB Smokers: Variable, but usually less than 10% Toxic: 20-30% COHB Lethal: Greater than 60% COHB METHB Merritt 0.4 <=1.5 % [facility] Na Whole Blood 139 135 - 145 mmol/L [facility] K Whole Blood 4.4 3.5 - 5.0 mmol/L [facility] Comment: Please note: Patients with WBC >100,000 may have falsely elevated Potassium levels. Contact the Clinical Chemistry L aboratory if there are any questions. ICa Whole Blood 1.21 1.15 - 1.33 mmol/L [facility] Comment: Note: ??Total bilirubin higher than 20 m g/dL may lead to falsely low ionized calcium. CL Whole Blood 101 98 - 107 mmol/L [facility] Gluc Whole Bld 130 65 - 199 mg/dL [facility] Comment: Diabetes: >=200 mg/dL plus symp toms Lactate WB 1.2 0.5 - 2.2 mmol/L [facility] FIO2 Merritt 50 % [facility] BGas Source Venous [facility] Specimen Anatomical Collection Method Collection Time Receive d Time (Source) Location / / Volume Laterality Blood specimen 06/28/2020 2:50 AM 021 2:50 (specimen) EST AM EST Fernando Delarosa Jr., MD CHEMISTRY ORDERABLES Performing Organization Address City/[facility]/[place] [address] POCT Glucose (06/28/2020 2:33 AM EST) P athologist Signature POC Glucose 115 65 - 199 [facility] mg/dL [facility] Comment: Supplemental ranges: <140 mg/dL before meals <180 mg/dL all other times of the day Specimen Anatomical Collection Method Collection Time Receive d Time (Source) Location / / Volume Laterality Blood specimen 06/28/2020 2:33 AM 021 2:33 (specimen) EST AM EST Fernando Delarosa Jr., MD POINT OF CARE TEST ORDERABLE S Performing Organization Address City/State/[place] [address] documented in this encounter Visit Diagnoses Diagnosis Chest pain, unspecified type Chronic respiratory failure with hypoxia Chronic respiratory failure Pulmonary lymphangioleiomyomatosis Lymphangioleiomyomatosis Severe protein-calorie malnutrition Other severe protein-calorie malnutritio n Asthma, unspecified asthma severity, uns pecified whether complicated, unspecified whether persistent Hypoxia Hypoxemia documented in this encounter Admitting Diagnoses Diagnosis Hypoxia Hypoxemia documented in this encounter Administered Medications Inactive Administered Medications - up to 3 most recent administrations Medication Order MAR Action Action Date Dose Rate Site albuteroL 90 mcg/actuation Given 07/01/2020 11:21 AM EST 1 puff inhaler 1 puff 1 puff, Inhalation, EVERY 4 HOURS PRN, Starting on Carine 06/30/20 at 1540, Until Sat07/01/20 at 2054, Wheezing, Routine Given 06/30/2020 3:52 PM EST 1 puff azithromycin (Zithromax) 500 mg New Bag 06/29/2020 4:38 AM EST 500 mg 255.1 mL/hr in sodium chloride 0.9% 255 mL injection 500 mg 500 mg, Intravenous, EVERY 24 HOURS, First dose on Sat06/28/20 at 0400, Until Discontinued, Administer over 60 Minutes, Indication for (Active or Suspected): Bacteremia/Sepsis New Bag 06/28/2020 4:23 AM EST 500 mg 255.1 mL/hr azithromycin (Zithromax) tablet 500 mg Given 06/30/2020 8:36 AM EST 500 mg 500 mg, Oral, DAILY, First dose on Sat06/30/20 at 0900, Until Discontinued, Routine dexmedetomidine (Precedex) New Bag 06/28/2020 7:55 AM EST 1.7 mcg/kg/hr 17.4 mL/hr (4 mcg/mL) in sodium chloride 0.9% 100 mL infusion 0-1.7 mcg/kg/hr ? 41 kg (0-17.425 mL/hr, rounded to 0-17.4 mL/hr), Intravenous, CONTINUOUS, Starting on Sat06/28/20 at 0345, Until Sat06/29/20 at 1058, Titrate to sedation level of RASS Goal (-)1 to 0 . Start at 0.4 mcg/kg/hr, adjust by 0.4 mcg/kg/hr every 15 minutes. Once stable, reassess patient every 30 minutes. Rate not to exceed 1.7 mcg/kg/hr. Change rate only after assessing and documenting RASS. Reassess sedation scores within 30 minutes after every rate change. If under sedated, increase rate by 0.4 mcg/kg/hr. If over sedated, hold sedative until target RASS (-)1 to 0 achieved and then restart at 50% of previous rate. Call storehouse clerk if goal not achieved at maximum rate. If SAT is ordered and if patient meets criteria for Spontaneous Awakening Trial, titrate per protocol. Rate/Dose Change 06/28/2020 3:30 AM EST 1.7 mcg/kg/hr 17.4 mL/hr Rate/Dose Change 06/28/2020 3:15 AM EST 1.4 mcg/kg/hr 14.4 mL/hr dexmedetomidine (Precedex) 400 mcg/100 m L (4 mcg/mL) infusion 1 dose, Starting on Sat06/28/20 at 0235, Until Sat06/28/20 at 0230, Korina Pruitt: dc overrashely folic acid (Folvite) tablet 1,000 mcg Given 07/01/2020 9:22 AM EST 1,000 mcg 1,000 mcg (1 mg), Oral, DAILY, First dose on Sat06/30/20 at 1215, Until Discontinued, Routine Given 06/30/2020 12:18 PM EST 1,000 mcg furosemide (Lasix) tablet 40 mg Given 07/01/2020 9:22 AM EST 40 mg 40 mg, Oral, DAILY, First dose on Sat06/28/20 at 1045, Until Discontinued, Routine Given 06/30/2020 8:36 AM EST 40 mg Given 06/29/2020 9:05 AM EST 40 mg heparin (porcine) (5,000 units/1 mL) Given 07/01/2020 9:23 AM ES T 5,000 Units subcutaneous injection 5,000 Units 5,000 Units, Subcutaneous, EVERY 12 HOURS SCHEDULED (2 times per day), First dose on Sat06/28/20 at 1100, Until Discontinued, Routine Given 06/30/2020 8:27 PM EST 5,000 Units Given 06/30/2020 8:35 AM EST 5,000 Units ipratropium-albuteroL (DUONEB) 0.5 mg-3 mg(2.5 Given 0 06/28/2020 3:30 AM EST 3 mLs mg base)/3 mL nebulizer solution 3 mL 3 mL, Nebulization, EVERY 15 MIN, 3 doses, First dose on Sat06/28/20 at 0400, Last dose on Sat06/28/20 at 0430, Routine Given 06/28/2020 3:20 AM EST 3 mLs Given 06/28/2020 3:12 AM EST 3 mLs ipratropium-albuteroL (DUONEB) 0.5 mg-3 mg(2.5 Given 0 07/01/2020 5:20 PM EST 3 mLs mg base)/3 mL nebulizer solution 3 mL 3 mL, Nebulization, EVERY 4 HOURS SCHEDULED, First dose on Sat06/28/20 at 0530, Until Discontinued, Routine Given 07/01/2020 12:59 PM EST 3 mLs Given 07/01/2020 9:24 AM EST 3 mLs LORazepam (Ativan) (2 mg/mL) injection 0 .5 mg Given 06/28/2020 3:45 AM EST 0.5 mg 0.5 mg, Intravenous, ONCE, 1 dose, On Sat06/28/20 at 0430, Routine LORazepam (Ativan) (2 mg/mL) injection 0.5 Given 06/28/2020 12:11 PM EST 0.5 mg mg 0.5 mg, Intravenous, EVERY 4 HOURS PRN, Starting on Sat06/28/20 at 0952, Until Sat06/29/20 at 1058, Anxiety, If medication ordered subcutaneously, do not administer more than 2 mL as a single injection., Routine LORazepam (Ativan) (2 mg/mL) injection 1 mg Given 06/28/2020 12:31 PM EST 1 mg 1 mg, Intravenous, ONCE, 1 dose, On Sat06/28/20 at 1315, If medication ordered subcutaneously, do not administer more than 2 mL as a single injection., Routine LORazepam (Ativan) 2 mg/mL injection 1 dose, Starting on Sat06/28/20 at 0340, Until Sat06/28/20 at 0345, Gakii, Sandra: cabinet override methylPREDNISolone sod succ (pf) (SOLU-Medrol) Given 0 06/30/2020 8:35 AM EST 40 mg (40 mg/1 mL) injection 40 mg 40 mg, Intravenous, EVERY 8 HOURS, First dose on Sat06/28/20 at 0430, Until Discontinued Given 06/30/2020 1:20 AM EST 40 mg Given 06/29/2020 11:58 AM EST 40 mg metoprolol tartrate (Lopressor) tablet 2 5 mg Given 07/01/2020 9:20 AM EST 25 mg 25 mg, Oral, EVERY 12 HOURS SCHEDULED (2 times per day), First dose on Sat06/29/20 at 2100, Until Discontinued, Routine Given 06/30/2020 8:27 PM EST 25 mg Given 06/30/2020 8:37 AM EST 25 mg morphine oral solution (2 mg/mL) oral liquid 5 Given 0 06/30/2020 11:04 AM EST 5 mg mg 5 mg, Oral, EVERY 3 HOURS PRN, Starting on Sat06/29/20 at 1025, Until Sat06/30/20 at 1159, for shortness of breath/increased work of breathing, Routine Given 06/29/2020 3:18 PM EST 5 mg Given 06/29/2020 10:38 AM EST 5 mg pantoprazole (Protonix) injection 40 mg Given 06/29/2020 9:12 AM EST 40 mg 40 mg, Intravenous, DAILY, First dose on Sat06/28/20 at 0900, Until Discontinued Given 06/28/2020 8:03 AM EST 40 mg pantoprazole EC (Protonix) tablet 40 mg Given 07/01/2020 9:22 AM EST 40 mg 40 mg, Oral, DAILY, First dose on Sat06/30/20 at 0900, Until Discontinued, DO NOT CRUSH OR OPEN, Routine Given 06/30/2020 8:36 AM EST 40 mg PHENobarbitaL (Luminal) (130 mg/mL) Given 06/28/2020 9:12 PM EST 184.6 mg 17 mL/hr injection 184.6 mg 184.6 mg (rounded from 184.5 mg = 4.5 mg/kg/dose ? 41 kg), Intravenous, at 17 mL/hr, EVERY 3 HOURS, 2 doses, First dose on Sat06/28/20 at 1900, Last dose on Sat06/28/20 at 2200, Administer as slow IV Push at at rate no more than 50 mg/minute. Hold for RASS Less than -1: Not fully alert, but has sustained (more than 10 seconds) awakening, with eye contact, to voice. Hold for HR Less than 60 bpm. Hold for SBP Less than 90 mmHg., Routine Given 06/28/2020 6:21 PM EST 184.6 mg 17 mL/hr PHENobarbitaL (Luminal) (130 mg/mL) Given 06/29/2020 12:05 A M EST 184.6 mg 17 mL/hr injection 184.6 mg 184.6 mg (rounded from 184.5 mg = 4.5 mg/kg/dose ? 41 kg), Intravenous, at 17 mL/hr, EVERY 30 MIN PRN, 2 doses, Starting on Sat06/28/20 at 1501, Until Sat06/29/20 at 0010, Agitation, Administer as slow IV Push at at rate no more than 50 mg/minute. Hold for RASS Less than -1: Not fully alert, but has sustained (more than 10 seconds) awakening, with eye contact, to voice. Hold for HR Less than 60 bpm. Hold for SBP Less than 90 mmHg., Routine Given 06/28/2020 3:22 PM EST 184.6 mg 17 mL/hr PHENobarbitaL (Luminal) tablet 16.2 mg Given 06/30/2020 8:28 PM EST 16.2 mg 16.2 mg (rounded from 19.68 mg = 0.48 mg/kg/dose ? 41 kg), Oral, 2 TIMES DAILY, 2 doses, First dose on Carine 06/30/20 at 0900, Last dose on Sat06/30/20 at 2100, Hold for RASS Less than -1: Not fully alert,but has sustained (more than 10 seconds) awakening, with eye contact, to voice. Hold for HR Less than 60 bpm. Hold for SBP Less than 90 mmHg., Routine Given 06/30/2020 8:36 AM EST 16.2 mg PHENobarbitaL (Luminal) tablet 40.5 mg Given 06/29/2020 9:34 PM EST 40.5 mg 40.5 mg (rounded from 39.36 mg = 0.96 mg/kg/dose ? 41 kg), Oral, 2 TIMES DAILY, 2 doses, First dose on Sat06/29/20 at 0530, Last dose on Sat06/29/20 at 2100, Hold for RASS Less than -1: Not fully alert,but has sustained (more than 10 seconds) awakening, with eye contact, to voice. Hold for HR Less than 60 bpm. Hold for SBP Less than 90 mmHg., Routine Given 06/29/2020 4:57 AM EST 40.5 mg PHENobarbitaL (Luminal) tablet 8.1 mg Given 07/01/2020 9:23 AM EST 8.1 mg 8.1 mg (rounded from 9.84 mg = 0.24 mg/kg/dose ? 41 kg), Oral, 2 TIMES DAILY, 2 doses, First dose on Sat07/01/20 at 0900, Last dose on Sat07/01/20 at 2100, Hold for RASS Less than -1: Not fully alert,but has sustained (more than 10 seconds) awakening, with eye contact, to voice. Hold for HR Less than 60 bpm. Hold for SBP Less than 90 mmHg., Routine PHENobarbitaL (Luminal) tablet 8.1 mg Given 07/01/2020 2:13 PM EST 8.1 mg 8.1 mg (rounded from 9.84 mg = 0.24 mg/kg/dose ? 41 kg), Oral, 2 TIMES DAILY, 1 dose, First dose (after last modification) on Sat07/01/20 at 1400, Please give last dose at 1400 prior to patient discharging home. Thanks Hold for RASS Less than -1: Not fully alert,but has sustained (more than 10 seconds) awakening, with eye contact, to voice. Hold for HR Less than 60 bpm. Hold for SBP Less than 90 mmHg., Routine piperacillin-tazobactam (Zosyn) New Bag 06/28/2020 3:06 AM 3.375 g 12.5 mL/hr 3.375 g vial attach to sodium EST chloride 0.9% 50 mL Mini-Bag Plus 3.375 g, Intravenous, EVERY 8 HOURS, First dose on Sat06/28/20 at 0400, Until Discontinued, Administer over 4 Hours, Warning Vesicant/Irritant Medication Do not administer or Y-site with lactated ringers., Indication for (Active or Suspected): Bacteremia/Sepsis potassium chloride ER (K-Dur/Klor-Con) tablet Given 9:20 AM EST 40 mEq 40 mEq 40 mEq, Oral, ONCE, 1 dose, On Sat07/01/20 at 0815, 20 mEq tablet may be dissolved in water for administration, Routine potassium chloride ER (K-Dur/Klor-Con) tablet Given 1:00 PM EST 40 mEq 40 mEq 40 mEq, Oral, ONCE, 1 dose, On Sat07/01/20 at 1200, 20 mEq tablet may be dissolved in water for administration, Routine predniSONE (Deltasone) tablet 40 mg Given 07/01/2020 9:21 AM EST 40 mg 40 mg, Oral, DAILY, First dose on Sat07/01/20 at 0900, Until Discontinued, Routine sertraline (Zoloft) tablet 100 mg Given 07/01/2020 9:20 AM EST 100 mg 100 mg, Oral, DAILY, First dose on Sat06/29/20 at 1600, Until Discontinued, Routine Given 06/30/2020 8:36 AM EST 100 mg Given 06/29/2020 4:58 PM EST 100 mg simvastatin (Zocor) tablet 20 mg Given 07/01/2020 5:21 PM EST 20 mg 20 mg, Oral, EVERY EVENING, First dose on Sat06/29/20 at 1700, Until Discontinued, Routine Given 06/30/2020 5:55 PM EST 20 mg Given 06/29/2020 4:58 PM EST 20 mg sirolimus (Rapamune) tablet 2 mg Given 07/01/2020 9:19 AM EST 2 mg 2 mg, Oral, DAILY, First dose on Sat06/28/20 at 1700, Until Discontinued, DO NOT SPLIT, CRUSH OR OPEN, Routine Given 06/30/2020 8:36 AM EST 2 mg Given 06/29/2020 9:05 AM EST 2 mg sodium chloride (OCEAN) 0.65 % nasal spray Given 06/29 12:47 PM EST 1 spray 1 spray 1 spray, Each Nare, 2 TIMES DAILY PRN, Starting on Sat06/29/20 at 1143, Until Sat07/01/20 at 2054, Congestion, Routine thiamine (Vitamin B1) tablet 100 mg Given 07/01/2020 9:20 AM EST 100 mg 100 mg, Oral, DAILY, First dose on Sat06/30/20 at 1215, Until Discontinued, Routine Given 06/30/2020 12:17 PM EST 100 mg vancomycin (Vancocin) 1 gram in sodium New Bag 06/28/2020 3:12 AM EST 1 g 200 mL/hr chloride 0.9% 200 mL infusion 1 g, Intravenous, ONCE, 1 dose, On Sat06/28/20 at 0400, Administer over 60 Minutes, Maximum infusion rate is 1 gram/hour. If flushing of the face, neck, upper body, arms, and/or back occurs decrease infusion rate by 50% to reduce the severity of symptoms. This medication may have an associated drug lab level. Please see MAR for scheduled level. Warning Vesicant/Irritant Medication , Indication for (Active or Suspected): Pneumonia ([facility]) documented in this encounter Active and Recently Administered Medications Times are shown in EST. Scheduled Medication Order 06/29/2020 06/30/2020 07/01/2020 azithromycin (Zithromax) 500 mg in sodiu m chloride 0.9% 255 mL injection 500 mg (CANCELED) 0438 (New Bag - Provider: Carole medina, RN)0538 (Stopped - Provider: Carole Hendricks, VIOLA) 500 mg, Intravenous, EVERY 24 HOURS, Fir st dose on Sat06/28/20 at 0400, Until Discontinued, Administer over 60 Minutes, Indication for (Active or Suspected): Bacteremia/Sepsis azithromycin (Zithromax) tablet 500 mg (CANCELED) 0836 (Given - Provider: Troy Hernandez RN) 500 mg, Oral, DAILY, First dose on Sat at 0900, Until Discontinued, Routine folic acid (Folvite) tablet 1,000 mcg 12 18 (Given - Provider: Troy Hernandez RN) 0922 (Given - Provider: Soumya hopkins RN) 1,000 mcg (1 mg), Oral, DAILY, First dos e on Sat06/30/20 at 1215, Until Discontinued, Routine furosemide (Lasix) tablet 40 mg 0905 (Given - Provider: Tyalor Tsai RN) 0836 (Given - Provider: Troy Hernandez RN) 0922 (Given - Provider: Soumya Braswell RN) 40 mg, Oral, DAILY, First dose on 02/07 at 1045, Until Discontinued, Routine heparin (porcine) (5,000 units/1 mL) subcutaneous inje ction 5,000 Units 0907 (Given - Provider: Taylor Tsai RN)2158 (Given - Provider: Orin Vasquez RN) 0835 (Given - Provider: Troy em RN)202 (Given - Provider: Damien Booth, VIOLA) 0923 (Given - Provider: Soumya hopkins RN) 5,000 Units, Subcutaneous, EVERY 12 HOUR S SCHEDULED (2 times per day), First dose on Sat06/28/20 at 1100, Until Discontinued, Routine ipratropium-albuteroL (DUONEB) 0.5 mg-3 mg(2.5 mg base)/3 mL nebulizer solution 3 mL 0008 (Given - Provider: Cam colindres, RESEARCH ASSISTANT)0437 (Given - Provider: Carole Hendricks, VIOLA)0822 (Given - Provider: Geo Cazares)1145 (Given - Provider: Geo Cazares)1503 (Given - Provider: Yvonne Joseph, VIOLA) 0316 (Given - Provider: Orin Vasquez, VIOLA)0836 (Given - Provider: Troy Hernandez, VIOLA)1218 (Given - Provider: Troy Hernandez RN)1600 (Not Given - Provider: Troy Hernandez RN - Reason: Patient/family refused) 0006 (Given - Provider: Damien Booth RN)0505 (Given - Provider: Lu Umanzor, VIOLA)0924 (Given - Provider: Soumya Braswell, VIOLA)1259 (Given - Provider: Soumya Braswell, VIOLA)1720 (Given - Provider: Soumya Braswell, VIOLA) 3 mL, Nebulization, EVERY 4 HOURS SCHEDU LED, First dose on Sat06/28/20 at 0530, Until Discontinued, Routine 2008 (Given - Provider: Orin Vasquez, VIOLA)2313 (Given - Provider: Orin Vasquez, RN) 2013 (Given - Provider: Damien Booth, VIOLA) methylPREDNISolone sod succ (pf) (SOLU-M edrol) (40 mg/1 mL) injection 40 mg (CANCELED) 0438 (Given - Provider: Carole Hendricks, VIOLA)1158 (Given - Provider: Taylor Tsai, VIOLA) 0120 (Given - Provider: Orin Vasquez, VIOLA)0835 (Given - Provider: Troy Hernandez RN) 40 mg, Intravenous, EVERY 8 HOURS, First dose on Sat06/28/20 at 0430, Until Discontinued metoprolol tartrate (Lopressor) tablet 25 mg 2133 (Giv en - Provider: Orin Vasquez, VIOLA) 836 (Given - Provider: Troy em RN)2026 (Given - Provider: Damien Booth, VIOLA) 919 (Given - Provider: Soumya hopkins RN) 25 mg, Oral, EVERY 12 HOURS SCHEDULED (2 times per day), First dose on Sat06/29/20 at 2100, Until Discontinued, Routine pantoprazole (Protonix) injection 40 mg (CANCELED) (Given - Provider: Taylor Tsai RN) 40 mg, Intravenous, DAILY, First dose on Sat06/28/20 at 0900, Until Discontinued pantoprazole EC (Protonix) tablet 40 mg 835 (Given - Provider: Troy Hernandez RN) 921 (Given - Provider: Soumya hopkins RN) 40 mg, Oral, DAILY, First dose on 04/09 at 0900, Until Discontinued, DO NOT CRUSH OR OPEN, Routine PHENobarbitaL (Luminal) tablet 16.2 mg (COMPLETED) 835 (Given - Provider: Troy Hernandez RN)2027 (Given - Provider: Damien Booth RN) 16.2 mg (rounded from 19.68 mg = 0.48 mg /kg/dose ? 41 kg), Oral, 2 TIMES DAILY, 2 doses, First dose on Sat06/30/20 at 0900, Last dose on Sat06/30/20 at 2100, Hold for RASS Less than -1: Not fully alert ,but has sustained (more than 10 seconds ) awakening, with eye contact, to voice. Hold for HR Less than 60 bpm. Hold for SBP Less than 90 mmHg., Routine PHENobarbitaL (Luminal) tablet 40.5 mg (COMPLETED) 7 (Given - Provider: Carole Hendricks RN)2133 (Given - Provider: Orin Vasquez, VIOLA) 40.5 mg (rounded from 39.36 mg = 0.96 mg /kg/dose ? 41 kg), Oral, 2 TIMES DAILY, 2 doses, First dose on Sat06/29/20 at 0530, Last dose on Sat06/29/20 at 2100, Hold for RASS Less than -1: Not fully alert ,but has sustained (more than 10 seconds ) awakening, with eye contact, to voice. Hold for HR Less than 60 bpm. Hold for SBP Less than 90 mmHg., Routine PHENobarbitaL (Luminal) tablet 8.1 mg (CANCELED) 922 (Given - Provider: Luis Eduardo Braswell RN) 8.1 mg (rounded from 9.84 mg = 0.24 mg/k g/dose ? 41 kg), Oral, 2 TIMES DAILY, 2 doses, First dose on Sat07/01/20 at 0900, Last dose on Sat07/01/20 at 2100, Hold for RASS Less than -1: Not fully alert,b ut has sustained (more than 10 seconds) awakening, with eye contact, to voice. Hold for HR Less than 60 bpm. Hold for SBP Less than 90 mmHg., Routine PHENobarbitaL (Luminal) tablet 8.1 mg (COMPLETED) 1412 (Given - Provider: Soumya Braswell RN) 8.1 mg (rounded from 9.84 mg = 0.24 mg/k g/dose ? 41 kg), Oral, 2 TIMES DAILY, 1 dose, First dose (after last modification) on Sat07/01/20 at 1400, Please give last dose at 1400 prior to patient dischar ging home. Thanks Hold for RASS Less enio n -1: Not fully alert,but has sustained (more than 10 seconds) awakening, with eye contact, to voice. Hold for HR Less than 60 bpm. Hold for SBP Less than 90 mmHg., Routine potassium chloride ER (K-Dur/Klor-Con) tablet 40 mEq (COMPLETED) 09 (Given - Provider: Soumya Braswell RN) 40 mEq, Oral, ONCE, 1 dose, Sat07/01/20 at 0815, 20 mEq tablet may be dissolved in water for administration, Routine potassium chloride ER (K-Dur/Klor-Con) tablet 40 mEq (COMPLETED) 1300 (Given - Provider: Soumya Braswell RN) 40 mEq, Oral, ONCE, 1 dose, Sat07/01/20 at 1200, 20 mEq tablet may be dissolved in water for administration, Routine predniSONE (Deltasone) tablet 40 mg 09 (Given - Provider: Soumya Braswell RN) 40 mg, Oral, DAILY, First dose on 05/09 at 0900, Until Discontinued, Routine sertraline (Zoloft) tablet 100 mg 1658 (Given - Provid er: Soumya Braswell RN) 0836 (Given - Provider: Troy Hernandez, VIOLA) 0920 (G iven - Provider: Soumya Braswell RN) 100 mg, Oral, DAILY, First dose on Sat at 1600, Until Discontinued, Routine simvastatin (Zocor) tablet 20 mg 1658 (Given - Provider: Sidney Braswell RN) 1755 (Given - Provider: Troy Hernandez RN) 1721 (Given - Provider: Soumya Braswell RN) 20 mg, Oral, EVERY EVENING, First dose o n Sat06/29/20 at 1700, Until Discontinued, Routine sirolimus (Rapamune) tablet 2 mg 0905 (Given - Provider: Taylor Tsai RN) 0836 (Given - Provider: Troy Hernandez RN) 0919 (Given - Provider: Soumya Braswell RN) 2 mg, Oral, DAILY, First dose on 06/28 at 1700, Until Discontinued, DO NOT SPLIT, CRUSH OR OPEN, Routine thiamine (Vitamin B1) tablet 100 mg 1217 (Given - Provider: Troy Hernandez RN) 0920 (Given - Provider: Soumya hopkins RN) 100 mg, Oral, DAILY, First dose on Sat at 1215, Until Discontinued, Routine PRN Medication Order 06/29/2020 06/30/2020 07/01/2020 albuteroL 90 mcg/actuation inhaler 1 puff 1552 (Given - Provider: Troy Hernandez, VIOLA) 1121 (Given - Provider: Soumya hopkins RN) 1 puff, Inhalation, EVERY 4 HOURS PRN, S tarting Sat06/30/20 at 1540, Until Sat07/01/20 at 2054, Wheezing, Routine morphine oral solution (2 mg/mL) oral liquid 5 mg (CAN CELED) 1038 (Given - Provider: Taylor Tsai, VIOLA - Comment: for air hunger)1518 (Given - Provider: Taylor Tsai RN - Comment: air hunger) 1104 (Given - Provider: Troy Hernandez RN) 5 mg, Oral, EVERY 3 HOURS PRN, Starting Sat06/29/20 at 1025, Until Carine 06/30/20 at 1159, for shortness of breath/increased work of breathing, Routine PHENobarbitaL (Luminal) (130 mg/mL) injection 184.6 mg (COMPLETED) 0005 (Given - Provider: Carloe Hendricks, VIOLA) 184.6 mg (rounded from 184.5 mg = 4.5 mg /kg/dose ? 41 kg), Intravenous, at 17 mL/hr, EVERY 30 MIN PRN, 2 doses, Starting 06/28/20 at 1501, Until Discontinued, Agitation, Administer as slow IV Push at at rate no more than 50 mg/minute. Hold for RASS Less than -1: Not fully alert, but has sustained (more than 10 seconds) awakening, with eye contact, to voice. Hold for HR Less than 60 bpm. Hold for SBP Less than 90 mmHg., Routine sodium chloride (OCEAN) 0.65 % nasal spray 1 spray 124 7 (Given - Provider: Alyssa Le RN) 1 spray, Each Nare, 2 TIMES DAILY PRN, S tarting Sat06/29/20 at 1143, Until 07/01/20 at 2054, Congestion, Routine documented in this encounter Additional Health Concerns Infection Onset Date Last Indicated Resolved Time Rule Out COVID-19 06/28/2020 06/28/2020 06/28/2020 3:3 7 PM EST documented as of this encounter Care Teams Wet Wash Assembler Relationship Specialty Start Date End Date Magdalene Lin PA PCP - General 09/05/[address] [place] [address] documented as of this encounter
--- OUTSIDE RECORDS SUMMARY | 2022-02-10 06:09 | XMS_ITS | Encounter Summary ---
:1960 [place] [address] Care Team Providers Name Role Phone Magdalene Lin Primary Care Provider [phone] Encounter Details Date Type Department Care Team Description 06/27/2020 Ancillary Procedure Radiology Library at [facility] MEKA Simmons MD [facility] [place] [address] [place] [address] PULMONARY MEDICINE [phone] [place], [place] [address] (Wo rk) Social History Tobacco [...] Associated Diagnosis Comme nts FILM LIBRARY Routine 06/27/2020 10:21 PM Results for this STORAGE ONLY DX EST procedure ar e in CHEST the results section. documented in this encounter Results Film Library- Storage Only DX Chest (06/27/2020 10:21 PM EST) Specimen (Source) Anatomical Location Collection Method / Collectio n Time Received Time / Laterality Volume Narrative RAD - 06/27/2020 10:21 PM EST This exam is auto-finalizing. It's purpo se is for storage only. Fernando Delarosa Jr., MD IMG FILM LIBRARY ORDERABLES Performing Organization Address City/State/ZIP Code Phon e Number RAD [facility] [place], [place] documented in this encounter Visit Diagnoses Not on filedocumented in this encounter Care Teams Doughnut Dough Mixer Relationship Specialty Start Date End Date Magdalene Lin PA PCP - General 09/05/[address] [place] [address] documented as of this encounter
--- OUTSIDE RECORDS SUMMARY | 2022-02-10 06:09 | XMS_ITS | Encounter Summary ---
:1960 Author Organization [facility] [place] [address] Care Team Providers Name Role Phone Magdalene Lin Primary Care Provider [phone] Encounter Details Date Type Department Care Team Description 08/05/2021 Ancillary Procedure Radiology Library at [facility] FRANCE Argueta [facility] [address] [place] [address] [place] [address] [phone] (Wo rk) Social History Tobacco Use Types [...] Diagnosis Comme nts FILM LIBRARY Routine 08/05/2021 8:01 PM Results f or this STORAGE ONLY DX EDT procedure ar e in PELVIS the results section. documented in this encounter Results Film Library- Storage Only DX Pelvis (08/05/2021 8:01 PM EDT) Specimen (Source) Anatomical Location Collection Method / Collectio n Time Received Time / Laterality Volume Narrative [facility] - 08/05/2021 8:01 PM EDT This exam is auto-finalizing. It's purpo se is for storage only. Magdalene HOUGH IMG FILM LIBRARY ORDERA BLES Performing Organization Address City/State/ZIP Code Phon e Number [place], [place] documented in this encounter Visit Diagnoses Not on filedocumented in this encounter Care Teams Supervisor Extruding Department Relationship Specialty Start Date End Date Magdalene Lin PA PCP - General 09/05/[address] [facility] Adrianna [place] [address] documented as of this encounter
--- OUTSIDE RECORDS SUMMARY | 2022-02-10 06:09 | XMS_ITS | Encounter Summary ---
:1960 Author Organization [facility] [place] [address] Care Team Providers Name Role Phone Magdalene Lin Primary Care Provider [phone] Reason for Visit Auth/Cert Specialty Diagnoses / Procedures Referred By Contact Refer red To Contact Diagnoses Hypotension GI BLEED Procedures EMERGENCY IPI Referral ID Status Reason Start Date Expiration Date Visits Requ ested Visits Authorized [id number] 1 1 Encounter Details Date Type Department Care Team Description 11/19/2018 Anesthesia Event Gastroenterology at [facility] Salvador Lou, [facility] [place] [address] [facility] [phone] DR ANESTHESIOLOGY [place], [place] [address] Anesthesia Record Procedure Summary Procedure Name Responsible Anesthesia Start Anesthesia Stop Time Anesthesiologist Time EGD, UPPER GI Salvador Lou MD 11/19/18 1418 11/19/18 150 3 ENDOSCOPY (N/A Trunk) Events Date Time Event Comment 11/19/2018 1406 1418 AN Verify 1418 Start 1418 An Start Data 1424 An Induction 1425 Anesthesia Ready 1445 Break/Relief In Tereza donovan, SOCIAL MEDIA DIRECTOR 1452 Break/Relief Out 1503 an stop data 1503 Recovery or ICU Handoff Patient care was transferred to the destination unit staff after review of the patient's medica l history, current anesthetic/surgi maycol status and plan, according to the Provider Handoff Checklist. 1503 Stop Name Total IV Lidocaine 100 mg Propofol 250 mg Propofol INF 228.8 mg Lactated Ringers 300 mL Agents Name O2 Air N2O O2 Auxiliary Flowmeter 1 Blood No blood administrations on file. Lines, Drains, and Airways Type Details Placement Removal PIV 11/18/18; 1930; median 11/18/18 1930 by Ric, 11/20/18 1404 by Mauricio cubital vein (antecubital Kristian, RN Anabela L , RN fossa), left; 20 gauge; OSH; 11/20/18; 1404 PIV 11/18/18; 1930; median 11/18/18 1930 by Ric, 11/20/18 1403 by Mauricio cubital vein (antecubital Kristian, RN Anabela L , RN fossa), right; 20 gauge; OSH; 11/20/18; 1403 documented in this encounter Social History Tobacco Use Types Packs/Day Years Used Date Never Smoker Smokeless Tobacco: Never Used Alcohol Use Standard Drinks/Week Comments Yes 1 (1 standard drink = 0.6 oz pure alcoho l) Sex Assigned at Date Recorded Not on file documented as of this encounter OR Notes Anesthesia Postprocedure Evaluation - Salvador Lou MD - 11/19/2018 4:01 PM EDT Department of Anesthesiology Post-procedure Note Patient: Paradise Abel Procedure Summary Date: 11/19/18 Room / Location: [facility] ENDO 3 / [facility] ENDOSCOPY Anesthesia Start: 1418 Anesthesia Stop: 1503 Procedure: EGD, UPPER GI ENDOSCOPY (N/A Trunk) Diagnosis: (anemia) Surgeon: Sandor Dasilva MD Responsible Provider: Salvador Lou MD Anesthesia Type: MAC ASA Status: 3 All Anesthesia Providers: Anesthesiologist: Salvador Lou MD SOCIAL MEDIA DIRECTOR: Dong Blank CRNA Vitals Value Taken Time BP 110/72 11/19/2018 3:20 PM Temp Pulse Resp 18 11/19/2018 3:20 PM SpO2 95 % 11/19/2018 3:27 PM Pain Level 0 11/19/2018 3:20 PM Vitals shown include unvalidated device data. Patient Location: PACU/[facility] Level of Consciousness: Awake and Alert Pain Management: Satisfactory Analgesia PONV: None Cardiovascular Status: At Baseline and Hemodynamically Stable Respiratory Status: At Baseline and Room Air Postoperative Fluid Status: Intravascular EUvolemia Possible Anesthetic Complications: NONE apparent at time of evaluation Final Primary Anesthesia Type: General (The anesthetic type performed was the same as planned.) Comments: SALVADOR LOU MD Anesthesia Preprocedure Evaluation - Salvador Lou MD - 11/19/2018 2:03 PM EDT Pre-Anesthesia Evaluation for: Paradise Abel a 58 y.o. female. Procedure(s): EGD, UPPER GI ENDOSCOPY Patient Active Problem List Diagnosis ??? Hypotension ??? Chest pain Past Medical History: Diagnosis Date ??? Angiomyolipoma of left kidney ??? Carpal tunnel syndrome ??? Clear cell carcinoma of kidney, right ??? HTN (hypertension) ??? Hyperlipidemia ??? Lymphangioleiomyomatosis Past Surgical History: Procedure Laterality Date ??? KIDNEY REMOVAL Right Social History Tobacco Use ??? Smoking status: Never Smoker ??? Smokeless tobacco: Never Used Substance Use Topics ??? Alcohol use: Yes Alcohol/week: 0.6 - 1.8 oz Types: 1 - 3 Glasses of wine per week Social History Substance and Sexual Activity Drug Use Never Allergies Allergen Reactions ??? Hymenoptera Allergenic Extract Anaphylaxis Medications: MAR and/or home medications have been reviewed. Physical Exam: Most Recent Vitals: 11/19/18 1339 BP: 115/71 Pulse: 81 Resp: 18 Temp: 36.6 ??C (97.8 ??F) SpO2: 100% Body mass index is 20.37 kg/m??. Height: 160 cm (5' 3) Airway Assessment: Mallampati: II TM distance: >3 FB Neck ROM: full Cardiovascular Assessment: cardiovascular exam normal Pulmonary Assessment: pulmonary exam normal Dental Assessment: - normal exam Misc Assessment: Patient is wearing No contact(s). IV access: Peripheral line Anesthesia Plan: ASA 3 MAC, with a(n) intravenous induction Plan EGD for melena history and low hemoglobin. Asymptomatic now. Transfused to a hemoglobin of 8 Recent Results (from the past 24 hour(s)) -POCT Glucose Result Value Ref Range POC Glucose 82 65 - 199 mg/dL -Lactate, whole blood, send to lab (Leb/CGP) Result Value Ref Range Lactate WB 1.0 0.5 - 2.2 mmol/L -Basic Metabolic Panel (non-fasting) Result Value Ref Range Glucose Lvl 82 65 - 199 mg/dL BUN 13 8 - 18 mg/dL Creatinine 0.89 0.70 - 1.20 mg/dL Sodium 137 135 - 145 mmol/L Potassium 4.5 3.5 - 5.0 mmol/L Chloride 100 98 - 107 mmol/L CO2 24 22 - 31 mmol/L Anion Gap 13 5 - 15 mmol/L Calcium 8.4 (L) 8.5 - 10.5 mg/dL eGFR 71 >=60 mL/min/1.73 m?? eGFR 83 >=60 mL/min/1.73 m?? -Magnesium Result Value Ref Range Magnesium 1.00 0.69 - 1.07 mmol/L -Phosphorus Result Value Ref Range Phosphorus 3.8 2.5 - 4.5 mg/dL -Hepatic Function Panel Result Value Ref Range Total Protein 5.7 (L) 6.1 - 8.0 gm/dL Albumin 3.5 3.2 - 5.2 gm/dL AST Not Perf 0 - 30 ALT 11 0 - 30 unit/L Alk Phos 60 40 - 104 unit/L Total Bilirubin 0.4 0.2 - 1.3 mg/dL Bili, Direct 0.1 0.0 - 0.3 mg/dL -Hemogram Result Value Ref Range WBC 7.2 4.0 - 9.5 x10(3)/mcL RBC 2.50 (L) 4.00 - 5.21 x10(6)/mcL Hemoglobin 8.0 (L) 11.7 - 15.5 gm/dL Hematocrit 25.0 (L) 35.7 - 45.8 % MCV 100.0 (H) 82.6 - 94.4 fL MCH 32.0 27.1 - 32.0 pg MCHC 32.0 31.7 - 35.0 gm/dL Platelets 286 145 - 357 x10(3)/mcL RDWSD 64.2 (H) 37.0 - 46.0 fL RDWCV 19.7 (H) 11.5 - 14.1 % MPV 11.5 7.6 - 12.9 fL nRBC % Auto 0.6 % nRBC Abs Auto 0.040 (H) 0.000 - 0.000 x10(3)/mcL -Differential, Automated Result Value Ref Range Neutrophils % 58.6 % Neutr Abs (ANC) 4.20 1.70 - 6.10 x10(3)/mcL Lymphocytes % 25.9 % Lymphocytes Abs 1.9 0.9 - 3.2 x10(3)/mcL Monocytes % 7.9 % Monocyte Abs 0.6 0.3 - 0.9 x10(3)/mcL Eosinophils % 5.2 % Eosinophils Abs 0.4 0.0 - 0.4 x10(3)/mcL Basophils % 1.0 % Basophils Abs 0.1 0.0 - 0.1 x10(3)/mcL Immature Gran % 1.40 % Zenaida Gran Abs 0.10 (H) 0.00 - 0.04 x10(3)/mcL -ABO/Rh Typing Result Value Ref Range ABORh Type O Pos -Antibody screen Result Value Ref Range Ab Screen Interp Negative Expires at 2359 on: 11/21/2018 -ABORH Recheck Status Result Value Ref Range ABORH Type Recheck Completed -Prothrombin Time Result Value Ref Range PT 10.0 9.4 - 12.5 sec INR 0.9 -APTT Result Value Ref Range PTT 21 (L) 25 - 37 sec -Basic Metabolic Panel (non-fasting) Result Value Ref Range Glucose Lvl 68 65 - 199 mg/dL BUN 12 8 - 18 mg/dL Creatinine 0.79 0.70 - 1.20 mg/dL Sodium 138 135 - 145 mmol/L Potassium 4.0 3.5 - 5.0 mmol/L Chloride 101 98 - 107 mmol/L CO2 24 22 - 31 mmol/L Anion Gap 13 5 - 15 mmol/L Calcium 8.5 8.5 - 10.5 mg/dL eGFR 83 >=60 mL/min/1.73 m?? eGFR 96 >=60 mL/min/1.73 m?? -Hepatic Function Panel Result Value Ref Range Total Protein 5.1 (L) 6.1 - 8.0 gm/dL Albumin 3.1 (L) 3.2 - 5.2 gm/dL AST 21 0 - 30 unit/L ALT 10 0 - 30 unit/L Alk Phos 53 40 - 104 unit/L Total Bilirubin 0.2 0.2 - 1.3 mg/dL Bili, Direct <0.1 0.0 - 0.3 mg/dL -Vitamin B12 Result Value Ref Range Vitamin B-12 449 232 - 1,245 pg/mL -Hemogram Result Value Ref Range WBC 6.6 4.0 - 9.5 x10(3)/mcL RBC 2.42 (L) 4.00 - 5.21 x10(6)/mcL Hemoglobin 7.7 (L) 11.7 - 15.5 gm/dL Hematocrit 24.1 (L) 35.7 - 45.8 % MCV 99.6 (H) 82.6 - 94.4 fL MCH 31.8 27.1 - 32.0 pg MCHC 32.0 31.7 - 35.0 gm/dL Platelets 273 145 - 357 x10(3)/mcL RDWSD 66.5 (H) 37.0 - 46.0 fL RDWCV 20.0 (H) 11.5 - 14.1 % MPV 10.8 7.6 - 12.9 fL nRBC % Auto 0.5 % nRBC Abs Auto 0.030 (H) 0.000 - 0.000 x10(3)/mcL -Differential, Automated Result Value Ref Range Neutrophils % 50.3 % Neutr Abs (ANC) 3.31 1.70 - 6.10 x10(3)/mcL Lymphocytes % 31.9 % Lymphocytes Abs 2.1 0.9 - 3.2 x10(3)/mcL Monocytes % 8.8 % Monocyte Abs 0.6 0.3 - 0.9 x10(3)/mcL Eosinophils % 6.4 % Eosinophils Abs 0.4 0.0 - 0.4 x10(3)/mcL Basophils % 0.9 % Basophils Abs 0.1 0.0 - 0.1 x10(3)/mcL Immature Gran % 1.70 % Zenaida Gran Abs 0.11 (H) 0.00 - 0.04 x10(3)/mcL -Hemogram Result Value Ref Range WBC 6.1 4.0 - 9.5 x10(3)/mcL RBC 2.47 (L) 4.00 - 5.21 x10(6)/mcL Hemoglobin 8.0 (L) 11.7 - 15.5 gm/dL Hematocrit 24.4 (L) 35.7 - 45.8 % MCV 98.8 (H) 82.6 - 94.4 fL MCH 32.4 (H) 27.1 - 32.0 pg MCHC 32.8 31.7 - 35.0 gm/dL Platelets 299 145 - 357 x10(3)/mcL RDWSD 70.8 (H) 37.0 - 46.0 fL RDWCV 20.5 (H) 11.5 - 14.1 % MPV 11.0 7.6 - 12.9 fL nRBC % Auto 0.3 % nRBC Abs Auto 0.020 (H) 0.000 - 0.000 x10(3)/mcL -Reticulocyte Count Result Value Ref Range Retic Ct % 8.5 (H) 0.7 - 2.5 % Retic Ct Abs 0.210 (H) 0.020 - 0.110 x10(6)/mcL Immature Retic% 33.4 (H) 0.5 - 13.8 % Reticulated Hgb 34.2 29.8 - 39.4 pg Region - Other Informed Consent: Anesthetic plan and risks discussed with patient. Plan discussed with SOCIAL MEDIA DIRECTOR. PAT Clinic Note documented in this encounter Plan of Treatment Not on filedocumented as of this encounter Visit Diagnoses Not on filedocumented in this encounter Administered Medications Inactive Administered Medications - up to 3 most recent administrations Medication Order MAR Action Action Date Dose Rate Site lactated ringers infusion New Bag 11/19/2018 2:18 PM EDT CONTINUOUS PRN, Starting on Sat11/19/18 at 1418, Until Sat11/19/18 at 1503, Anesthesia Intra-op lidocaine (PF) (XYLOCAINE) 100 mg/5 mL (2 %) Given 9 2:30 PM EDT 30 mg injection PRN, Starting on Sat11/19/18 at 1424, Until Sat11/19/18 at 1503, Anesthesia Intra-op, Routine Given 11/19/2018 2:26 PM EDT 20 mg Given 11/19/2018 2:24 PM EDT 50 mg propofol (DIPRIVAN) 10 mg/mL bolus injection Given 9 2:51 PM EDT 50 mg (Anesthesia) PRN, Starting on Sat11/19/18 at 1424, Until Sat11/19/18 at 1503, Anesthesia Intra-op Given 11/19/2018 2:49 PM EDT 50 mg Given 11/19/2018 2:47 PM EDT 100 mg propofol (DIPRIVAN) Rate/Dose 11/19/2018 2:44 200 mcg/kg/min 62.4 mL /hr infusion Change PM EDT CONTINUOUS PRN, Starting on Sat11/19/18 at 1424, Until Sat11/19/18 at 1503, Anesthesia Intra-op, Routine New Bag 11/19/2018 2:24 PM EDT 150 mcg/kg/min 46.8 mL/hr documented in this encounter Care Teams Electrical Systems Designer Relationship Specialty Start Date End Date Magdalene Lin PA PCP - General 09/05/[address] [place] [address] documented as of this encounter
--- OUTSIDE RECORDS SUMMARY | 2022-02-10 06:09 | XMS_ITS | Encounter Summary ---
:1960 Author Organization [facility] [place] [address] Care Team Providers Name Role Phone Magdalene Lin Primary Care Provider [phone] Encounter Details Date Type Department Care Team Description 11/19/2018 Orders Only [facility] [address] [place] [address] [place] [address] [phone] (Wo rk) Social History Tobacco Use Types [...] Name Priority Date/Time Associated Diagnosis Comme nts UPPER GI ENDOSCOPY Routine 11/19/2018 2:11 PM Res ults for this EDT procedure are i n the results section. documented in this encounter Results UPPER GI ENDOSCOPY (11/19/2018 2:11 PM EDT) Component Value Ref Test Analysis Performed At [facility] Range Method Time Signature UPPER GI [facility] ENDOSCOPY Endoscopy Procedure Date: 11/19/2018 2:11 PM ? Patient Name: Paradise Abel ? Date of : 1960 ? Age: 58 ? Order #: [id number] ? Instrument Name: [id number] ? Procedure: ? Upper GI endoscopy Indications: ? Melena Providers: ? Sandor Dasilva, Alejandro Vizcarra, RN, ? Jie Crump MD: ?Magdalene Lin Medicines: ? Monitored Anesthesia Care Complications: ? No immediate complications. Procedure: ? Pre-Anesthesia Assessment: ? - Prior to the procedure, a H istory ? and Physical was performed, a nd ? patient medications and aller gies ? were reviewed. The patient is ? competent. The risks and bene fits of ? the procedure and the sedatio n ? options and risks were discus sed with ? the patient. All questions we re ? answered and informed consent was ? obtained. Patient identificat ion and ? proposed procedure were verif ied by ? the physician and the nurse barrett n the ? endoscopy suite. Mental Statu s ? Examination: alert and orient ed. ? Airway Examination: normal ? oropharyngeal airway and neck ? mobility. Respiratory Examina tion: ? clear to auscultation. CV ? Examination: normal. Prophyla ctic ? Antibiotics: The patient does not ? require prophylactic antibiot ics. ? Prior Anticoagulants: The pat ient has ? taken no previous anticoagula nt or ? antiplatelet agents. ASA Grad e ? Assessment: II - A patient wi th mild ? systemic disease. After revie wing the ? risks and benefits, the patie nt was ? deemed in satisfactory condit ion to ? undergo the procedure. The an esthesia ? plan was to use monitored ane sthesia ? care (MAC). Immediately prior to ? administration of medications , the ? patient was re-assessed for a dequacy ? to receive sedatives. The hea rt rate, ? respiratory rate, oxygen satu rations, ? blood pressure, adequacy of p ulmonary ? ventilation, and response to care ? were monitored throughout the ? procedure. The physical statu s of the ? patient was re-assessed after the ? procedure. ? The procedure, indications, b enefits, ? risks and alternatives were e xplained ? to the patient. Specifically ? discussed were potential ? complications including, but not ? limited to, bleeding, perfora tion, ? infection, missing a cancer, and ? adverse medication reactions. The ? Endoscope was introduced thro ugh the ? mouth, and advanced to the se cond ? part of duodenum. The patient ? tolerated the procedure well. The ? upper GI endoscopy was accomp lished ? without difficulty. The patie nt ? tolerated the procedure well. ? Findings: ? The examined esophagus was normal. ? The Z-line was found 37 cm from the incisors. ? Six non-bleeding superficial gastric ulcers with a ? clean ulcer base (Rloand Class III) were found in ? the gastric antrum. The largest lesion was 6 mm in ? largest dimension. ? The exam of the stomach was otherwise normal. ? The examined duodenum was normal. ? Moderate Sedation: ? Not applicable - See Anesthesia documentation Impression: ?- Non-bleeding gastric ulcers with a ? clean ulcer base (Roland Cla ss III). ? This is likely in the setting of ? heavy NSAID use. ? - No specimens collected. Recommendation: ?- Return patient to hospital [facility] fo r ? ongoing care. ? - Continue twice daily pantop razole ? 20mg twice daily for three mo nths, ? then stop. ? - Send stool H pylori antigen . ? - Avoid NSAIDs. ? - OK to advance diet as barry ated ? from GI perspective. ? - GI will sign off. ? - Copied schedulers to cassy em an ? outpatient screening colonosc opy next ? available, any provider, with ? anesthesia support. ? Attending Participation: ? I was present and participated during the entire ? procedure, including non-mendoza portions. ? Sandor Dasilva, 11/19/2018 3:04:18 PM Number of Addenda: 0 Note Initiated On: 11/19/2018 2:11 PM Specimen (Source) Anatomical Collection Method Collection Time Re ceived Time Location / / Volume Laterality 11/19/2018 2:11 PM EDT Magdalene [facility]ES Performing Organization Address City/State/ZIP Code Phon e Number [facility] documented in this encounter Visit Diagnoses Not on filedocumented in this encounter Care Teams Industrial Machine System Technician Relationship Specialty Start Date End Date Magdalene Lin PA PCP - General 09/05/[address] [place] [address] documented as of this encounter
--- OUTSIDE RECORDS SUMMARY | 2022-02-10 06:09 | XMS_ITS | Encounter Summary ---
:1960 Author Organization [facility] [place] [address] Care Team Providers Name Role Phone Magdalene Lin Primary Care Provider [phone] Encounter Details Date Type Department Care Team Description 08/05/2021 Telephone Orthopaedics at [facility] Anne Marie Costello MD [facility] [place] [address] ORTHOPAEDIC SURGERY [phone] [place], [place] [address] (Wo rk) Social History Tobacco [...] this encounter Miscellaneous Notes Telephone Encounter - Anne Marie Costello MD - 08/05/2021 8:07 PM EDT Hospital: [facility] Provider: FRANCE Khoury Patient is a 60yoF with 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 XR found to have R displaced femoral neck fracture She is hemodynamically stable. Does have a WBC 17k of unknown etiology. CXR and UA were negative. COVID testing pending. Not complaining of any other +ROS. States she is not a regular drinker, but did have +ETOH (197). Not showing evidence of withdrawal. CT Head/neck d/t ETOH level and which were negative. CT C/A/P negative aside from known R FNFx. Not known if she had premorbid hip pain. Has not needed more supplementary O2 than 3L NC while at [facility]. 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 Also with hx HTN, HLD. Not on any blood thinners. Daily medications: lasix, metoprolol, simvastatin, sirolimus. Ambulates independently at baseline without assistive devices. Fell ~9A, came in to ED at 4PM. Initially given 3 L O2 at baseline and did recommend medicine admission of her medicine services arecompletely full capacity at [facility] at this time. Given patient has no other acute worsening of pulmonary status in addition to relatively complete work-up at outside hospital including chest x-ray and UAto account for leukocytosis, this is likely in the setting of acute fracture and systemic response. It is reasonable to accept the patient in transfer to orthopedic primary service with medicine consultation for preoperative risk assessment and optimization. We will plan to transfer [facility] and plan for operative fixation likely tomorrow. Recommended full length femur XR R femur tonight at [facility] and images to be pushed to our system priorto transfer. Anne Marie Costello MD documented in this encounter Plan of Treatment Not on filedocumented as of this encounter Visit Diagnoses Not on filedocumented in this encounter Care Teams Shed Hand Relationship Specialty Start Date End Date Magdalene Lin PA PCP - General 09/05/[address] [place] [address] documented as of this encounter
--- OUTSIDE RECORDS SUMMARY | 2022-02-10 06:09 | XMS_ITS | Encounter Summary ---
:1960 Author Organization [facility] [place] [address] Care Team Providers Name Role Phone Magdalene Lin Primary Care Provider [phone] Encounter Details Date Type Department Care Team Description 08/05/2021 Ancillary Procedure Radiology Library at [facility] FRANCE Argueta [facility] [address] [place] [address] [place] [address] [phone] (Wo rk) Social History Tobacco Use Types [...] ONLY CT EDT procedure ar e in HEAD the results section. documented in this encounter Results Film Library- Storage Only CT Head (08/05/2021 8:01 PM EDT) Specimen (Source) Anatomical Location Collection Method / Collectio n Time Received Time / Laterality Volume Narrative [facility] - 08/05/2021 8:01 PM EDT This exam is auto-finalizing. It's purpo se is for storage only. Magdalene HOUGH IMG FILM LIBRARY ORDERA BLES Performing Organization Address City/State/ZIP Code Phon e Number [place], [place] documented in this encounter Visit Diagnoses Not on filedocumented in this encounter Care Teams Landscaper Relationship Specialty Start Date End Date Magdalene Lin PA PCP - General 09/05/[address] [facility] Adrianna [facility] [place] [address] documented as of this encounter
--- OUTSIDE RECORDS SUMMARY | 2022-02-10 06:09 | XMS_ITS | Encounter Summary ---
:1960 Author Organization [facility] [place] [address] Care Team Providers Name Role Phone Magdalene Lin Primary Care Provider [phone] Encounter Details Date Type Department Care Team Description 08/05/2021 Ancillary Procedure Radiology Library at [facility] FRANCE Argueta [facility] [address] [place] [address] [place] [address] [phone] (Wo rk) Social History Tobacco Use Types [...] Diagnosis Comme nts FILM LIBRARY Routine 08/05/2021 8:57 PM Results f or this STORAGE ONLY DX EDT procedure ar e in LOWER EXTREMITY the results section. documented in this encounter Results Film Library- Storage Only DX Lower Extremity (08/05/2021 8:57 PM EDT) Specimen (Source) Anatomical Location Collection Method / Collectio n Time Received Time / Laterality Volume Narrative [facility] - 08/05/2021 8:57 PM EDT This exam is auto-finalizing. It's purpo se is for storage only. Magdalene HOUGH IMG FILM LIBRARY ORDERA BLES Performing Organization Address City/State/ZIP Code Phon e Number [place], [place] documented in this encounter Visit Diagnoses Not on filedocumented in this encounter Care Teams Energy Conservation Specialist Relationship Specialty Start Date End Date Magdalene Lin PA PCP - General 09/05/[address] [place] [address] documented as of this encounter
--- OUTSIDE RECORDS SUMMARY | 2022-02-10 06:09 | XMS_ITS | Encounter Summary ---
:1960 Author Organization [facility] [place] [address] Care Team Providers Name Role Phone Magdalene Lin Primary Care Provider [phone] Reason for Visit Reason Comments Medication Refill Encounter Details Date Type Department Care Team Description 06/06/2019 Refill Medical Intensive Care Unit - [place] [address] [place] [address] [phone] Social History Tobacco Use Types Packs/Day Years Used Date Never Smoker Smokeless Tobacco: Never Used Alcohol Use Standard Drinks/Week Comments Yes 1 (1 standard drink = 0.6 oz pure alcoho l) Sex Assigned at Date Recorded Not on file documented as of this encounter Plan of Treatment Not on filedocumented as of this encounter Visit Diagnoses Not on filedocumented in this encounter Additional Health Concerns Infection Onset Date Last Indicated Resolved Time Rule Out COVID-19 06/28/2020 06/28/2020 06/28/2020 3:3 7 PM EST documented as of this encounter Care Teams Cell Phone Repair Technician Relationship Specialty Start Date End Date Magdalene Lin PA PCP - General 09/05/[address] [place] [address] documented as of this encounter
--- OUTSIDE RECORDS SUMMARY | 2022-02-10 06:09 | XMS_ITS | Encounter Summary ---
:1960 [place] [address] Care Team Providers Name Role Phone Magdalene Lin Primary Care Provider Reason for Visit Auth/Cert Specialty Diagnoses / Procedures Referred By Contact Refer red To Contact Diagnoses Hip fracture hip fx Procedures emergency ipi Referral ID Status Reason Start Date Expiration Date Visits Requ ested Visits Authorized [id number] 1 1 Encounter Details Date Type Department Care Team Description 08/06/2021 Surgery Main Operating Room Dusty Peterson MD TOTAL HIP ARTHROPLASTY - [facility] ([facility] [address]) [place] [address] [place] [address] [phone] Social History Tobacco Use Types Packs/Day Years [...] Sign Reading Time Taken Comments Blood Pressure 122/85 08/06/2021 11:30 AM EDT Pulse 90 08/06/2021 11:30 AM EDT Temperature 37.2 ??C (99 ??F) 08/06/2021 11:13 AM EDT Respiratory Rate 17 08/06/2021 11:30 AM EDT Oxygen Saturation 95% 08/06/2021 11:30 AM EDT Inhaled Oxygen Concentration - - Weight - - Height - - Body Mass Index - - documented in this encounter Discharge Summaries Jenise [...] abstinence from alcohol. 2. Outpatient referral to [facility] due to fragility fracture. 3. Patient's [...] setting of social or environmental circumstances (Audi et al, JPEN J Parenteral Enteral Nutr. 2011; 36(3): 273-83) ??? Hypoxia ??? Hypotension ??? [...] right femoral neck fracture. Initially presented to [facility] and transferred to [facility] for management. No other injuries. CT head/c-spine and C/A/P done at [facility] due to ethanol detected on screen and [...] call an ambulance and was taken to [facility]. ??She denies any alcohol use that [...] was admitted from the Emergency Department from [facility] for evaluation and treatment of the above [...] out of bed, not able to redirect. Rncnii77 on CIWA and transferred to Medicine about [...] Breztri Aerosphere 160-9-4.8 mcg/actuation Hfaa Generic drug: wnrolzousz-vhbebljv-rysyhlkpev Refills: 0 busPIRone 5 mg Tab Commonly [...] bowel movement. You can also take an dhtl-psq-tvdprjz medication, Miralax if needed to combat constipation. [...] as much as possible. Call your doctor ([phone]) if you develop: 1. Fever greater than 100.5 2. Severe nausea or vomiting 3. Increasing pain that is not controlled by pain medications 4. Increasing redness, swelling, or drainage from incisions 5. Change in sensation FOLLOW-UP APPOINTMENTS: 1. You will have follow-up appointments at [facility] as indicated below in Future Appointment and Orders. 2. You will need to have x-rays prior to your follow-up appointment on 09/04/21. Please come to Radiology, desk 3T, 1 hour BEFORE that appointment for these x-rays. Future Appointments Date Time Provider Department Center 09/04/2021 11:30 AM [facility] DX ROOM 2 Xray [facility] Rad 09/04/2021 1:00 PM Bre Ramirez PA [facility]TH 3A [facility] If you have questions or concerns: Saturday through Saturday, 8 AM - 5 PM, you can call orthopedic at . For questions regarding this document or issues relating to this hospitalization on the Medical Service, please contact your inpatient physician through the [facility] Motion Picture Projectionist Apprentice . Issues after hours and on weekends will be handled by the Hospitalist staff on-call. General Instructions YOU ARE SCHEDULED FOR A FOLLOW UP APPOINTMENT WITH YOUR PRIMARY CARE PROVIDER, ON 08/22/2021 AT 10:45AM Future Appointments and Orders Future Appointments and Orders Future Appointments Provider Department Dept Phone 09/04/2021 11:30 AM [facility] DX ROOM 2 XRay at [facility] Arrive at: [facility] Area 3T [phone] Please go to [facility] 3T ([place] Location). 09/04/2021 1:00 PM Bre Ramirez PA Orthopaedics at [facility] Arrive at: [facility] Area 3A [phone] Future Orders Complete By Expires XR Pelvis and Hip 2 Views Right [[id number] Custom] 09/06/2021 03/08/2022 Process Instructions: Scheduling Instructions: Comments: Questions: Where will study be performed?: [facility] Radiology Portable exam?: Reason for exam [...] Referral to Home Health - at DISCHARGE [[id number] CPT(R)] As directed Process Instructions: Scheduling Instructions: Comments: DOCUMENTATION FOR VNA SERVICES (INCLUDING THOSE PATIENTS WITH MEDICARE COVERAGE REQUIRING HOME VNA SERVICES AND/OR HOSPICE SERVICES) Paradise Abel Discharge to own home: [address] [address] Mobile Not on file. Game Programer's Name: Paradise In discussion with the attending physician, it is certified that this patient is under their care and that they, or a nurse practitioner, clinical nurse specialist or physician's child development assistant who is working directly with them, [...] need for servicesas follows: Home Health Agency: [facility] PHONE: [phone] FAX: [phone] Home care orders for Total Hip Replacements: [...] with feet and knees wider than hips FLOOR COVERINGS INSTALLER: Explore resources in community that would be [...] services. Questions: Agency name and contact information: [email or web address] Patient location post discharge: home What services are requested: Registered Nurse Physical Therapy Social Work Occupational Therapy Start date: Responsible MD post discharge contact info: eze Braswell [[id number] Custom] As directed Process Instructions: Scheduling Instructions: Questions: Vendor Name/Contact information: Provider Contact Information: FRANCE Chen [address] [place] / [place] [id number] Discharge References/Attachments: Discharge References/Attachments Enoxaparin (Lovenox) (Macedonian) documented in this encounter Discharge Instructions Discharge InstructionsJeanie Conti CMA - 08/14/2021 11:50 AM EDT YOU ARE SCHEDULED FOR A FOLLOW UP APPOINTMENT WITH YOUR PRIMARY CARE PROVIDER, ON 08/22/2021 AT 10:45AM Patient InstructionsJenise David MD - 08/06/2021 11:33 AM EDT Orthopedic [...] bowel movement. You can also take an ioai-jwz-vgfzegd medication, Miralax if needed to combat constipation. [...] as much as possible. Call your doctor ([phone]) if you develop: Fever greater than 100.5 Severe nausea or vomiting Increasing pain that is not controlled by pain medications Increasing redness, swelling, or drainage from incisions Change in sensation FOLLOW-UP APPOINTMENTS: 1. You will have follow-up appointments at [facility] as indicated below in Future Appointment and Orders. 2. You will need to have x-rays prior to your follow-up appointment on 09/04/21. Please come to Radiology, desk , 1 hour BEFORE that appointment for these x-rays. Future Appointments Date Time Provider Department Center 09/04/2021 11:30 AM [facility] DX ROOM 2 Xray [facility] Rad 09/04/2021 1:00 PM Bre Ramirez PA [facility] If you have questions or concerns: Saturday through Saturday, 8 AM - 5 PM, you can call orthopedic at . For questions regarding this document or issues relating to this hospitalization on the Medical Service, please contact your inpatient physician through the [facility] Motion Picture Projectionist Apprentice . Issues after hours and on weekends will be handled by the Hospitalist staff on-call. AttachmentsThe following attachments cannot be sent through Care Everywhere. Enoxaparin (Lovenox) (Macedonian)documented in this encounter Medications at Time of [...] RLE, standard hip precautions (verified with ortho METAL POLISHER due to posterior approach), abduction pillow in supine. fall risk, supplemental O2 via NC. ETOH withdrawal. Delirium precautions. Mobility and Positioning Recommendations: ?? Pt to utilize FWW and 1 assist for ambulation and transfers w/ staff nurse anesthetist as able. ?? Please encourage up to chair for meal times as able. ?? Pt encouraged to ambulate frequently with staff, getting into the bathroom for toileting and walking out in the gasca >/= 3 times daily as able Subjective: I did my leg exercises so I'm a bit out of breath Objective: Patient seen for physical therapy and demonstrated the following: Pain: 4/10 R hip Vital Signs: On 6LNC on [...] mobility??from flat with modified independence using leg test carrier as needed (MET08/11) 4. Pt. to perform??all??transfers with modified independence using??FWW (MET 08/11) 5. Pt. to ambulate??150??feet with supervision??and least restrictive assistive device (MET 08/14) Plan: Therapy Frequency (PT): 2-4 times/wk for therapy interventions as outlined in initial evaluation. Patient agrees with plan as stated. Time IN / OUT: 3379-5692 Total Minutes, Physical Therapy: 15 Billing Code: x1 TEF Patrica Galvan, PT Pager: [phone] Physical Therapy Inpatient Rehabilitation Department Jenise David [...] alone with her cat in a 3rd sc apartment with elevator access. No LEIDY the building. Laundry [facility] the [facility]. Pt reported she has a walk-in [...] off IV and trying to reach for automobile and property underwriter's face shield - Reports abdominal pain and [...] for the pt to return home with AUTOMOTIVE TECHNICIAN, home OT, and supervision from friends when [...] Occupational Therapy: 18 minutes (x1 [facility] 9021-4988) Tereza Schuster OTR/L Inpatient Rehab Pager: [phone] Parveen Cespedes RCP - 08/14/2021 6:09 AM [...] David MD - 08/13/2021 12:36 PM EDT Hospital Medicine Attending Daily Progress [...] off IV and trying to reach for automobile and property underwriter's face shield - Reports abdominal pain and [...] alcohol withdrawal Team Pager ( Coverage 10/12): #[phone] PCP: FRANCE Chen MD 08/13/21 Patient was [...] on ETOH withdrawal ativan scale, see flow sheets/JUL. 0630: Pt removed PIV. Vascular access paged for [...] assist with ADL's Surveillance [continuous indirect monitoring]: Ernesto, Purposeful Rounding, Nurse Knowledge Exchangeat Bedside, Bed [...] assist with ADL's Surveillance [continuous indirect monitoring]: Jeraldo, Purposeful Rounding, Nurse Knowledge Exchangeat Bedside, Bed Alarm Set Rashel Ta - 08/12/2021 4:08 PM EDT Roller Die Cutting Machine Operator Encounter Note Patient Name: Paradise Abel : [id number] MR#: [id number] Admit Date: 08/06/2021 12:25 AM Hospital Day 6 days Narrative: Visited to introduce and assess acceptance of Roller Die Cutting Machine Operator services.Pt was not available and I will [...] RLE, standard hip precautions (verified with ortho METAL POLISHER due to posterior approach), abduction pillow in supine. fall risk, supplemental O2 via NC. ETOH withdrawal. Delirium precautions. Mobility and Positioning Recommendations: ?? Pt to utilize FWW and 1 assist for ambulation and transfers w/ staff nurse anesthetist as able. ?? Please encourage up to [...] active RN aware following visit. Assessment: Paradise Abel was seen today for [...] mobility??from flat with modified independence using leg test carrier as needed (MET08/11) 4. Pt. to perform??all??transfers with modified independence using??FWW (MET 08/11) 5. Pt. to ambulate??150??feet with supervision??and least restrictive assistive device Plan: Therapy Frequency (PT): 1-3 more times for therapy interventions as outlined in initial evaluation. Patient agrees with plan as stated. Time IN / OUT: 3071-4048 Total Minutes, Physical Therapy: 36 Billing Code: TEF 2 Nolvia Driscoll PTA Pager: [phone] Physical Therapy Inpatient Rehabilitation Department Ngozi Marroquin, OT - 08/12/2021 1:38 PM EDT Occupational [...] (MoCA) Results: Comments Visuospatial/Exec 0/1 Trails Test 0/1 Cube Copy / Clock: Contour 0/ Clock: Numbers 05/20 Clock: Hands Naming 3/3 (of 3) Attention / Repeat forward 05/20 Repeat backwards 0/ Tapping for letter A 2 errors 2/3 Serial 7 Subtraction (3pts=4+; 2pts=2+; 1pt=1) Language 2/2 Repeating Sentences Fluency 1/ Word Naming (1pt=11+ words) Abstraction 0/2 Similarities (Associations) Delayed Recall 0/5 (uncued) Orientation 1/ Month 05/20 Date 05/20 Year 1/ Day of the week 0/ Location college 05/20 City Add 1 point if 12 years of [...] Therapy: 44 (2x SCHM 1xcog ) Betsy MAGALLON Occupational Therapy Rehabilitation Department Patient status, treatment [...] to work towards home with supports. Ngozi Marroquin, OTR Pager [phone] Jenise David MD - 08/12/2021 9:59 AM [...] hospital. Has neighbor to help with IADLs but works Saturday through nights and sleeps during [...] of two midnights or is on the [facility] inpatient only procedure list (status C) due to: Toxic metabolic encephalopathy, alcohol withdrawal Team Pager ( Coverage 10/12): #[phone] PCP: FRANCE Chen MD 08/12/21 Alana Nicholson [...] assist with ADL's Surveillance [continuous indirect monitoring]: Jeraldo, Purposeful Rounding, Nurse Knowledge Exchangeat Bedside, Bed [...] Intake/Output Summary (Last 24 hours) at 08/11/2021 1751 Last data filed at 08/11/2021 1000 Gross per 24 hour Intake 240 ml Output 600 ml Net -360 ml Patient Vitals for the past 168 hrs: Weight 08/08/21 2100 47.9 kg (105 lb 11.2 oz) Body mass index is 18.72 kg/m??. General -Sitting up in bed, A+O x 3 and president AMY- Anicteric sclera Neck - Supple CV - [...] Recent Labs 08/11/21 0824 08/09/21 1713 08/09/21 08 CALCIUM 9.1 < > 8.5 PHOS 2.6 [...] who have questions please contact the health child care worker that requested your imaging first. Electronically signed by: Alejandro Cortez MD, [facility] ([phone]), at 08/06/2021 11:51 AM XR Chest PA [...] who have questions please contact the health child care worker that requested your imaging first. Electronically signed by: Angelica Banks MD, [facility] ([phone]), at 08/09/2021 1:41 PM Assessment: Paradise Abel??is [...] assess over weekend Team Pager( Coverage 10/12): #[phone] PCP: FRANCE Chen [phone] Attestation: IPI Certification I certify that I am a D-H credentialed attending provider with admitting privileges and that the patient meets or has met medical necessity to require an inpatient IPI level of care meeting a minimum of two midnights or is on the CMS inpatient only procedure list (status C) due to: EtOH w/d Cheri Perdue MD 08/11/2021 Tereza Schuster, OT - 08/11/2021 2:22 PM EDT Occupational [...] Interval History: Per medicine 08/10/21 Transferred from [facility] on [facility] On 3L Dilaudid x 1 Ativan 0.5 x 2 yesterday, 1 overnight at 3am S: I don't know.... I do feel more confused O: Patient seen for skilled OT treatment, and demonstrated the following: ?? Self-care: ?? S for all aspects of toileting (clothing mgmt, transfer, iasac-hygiene) 2/2 impulsivity - notable tremors present in [...] March 13 and that she was in [facility]. Unable to recall initially why she [...] return home with support/assistance from friends and AUTOMOTIVE TECHNICIAN, home OT when performing her daily tasks. [...] Minutes, Occupational Therapy: 21 (x1 [facility] 2042-9898) Pager: [phone] Tereza Schuster, OTR/L 08/11/2021 Occupational Therapy Rehabilitation Department Cole Patrica Adrianna, PT - 08/11/2021 2:10 PM Long LOWE REC: home with brother vs home with [...] RLE, standard hip precautions (verified with ortho METAL POLISHER due to posterior approach), abduction pillow in [...] and demonstrated the following: Pain: R hip, 11/26 Vital Signs: SpO2 (3LNC) 97% at rest, [...] -(Shruthi et al., 2008) References: Costa Alejandro, Venu Benedict et al. (2000). Lower extremity function and subsequent disability: consistency across studies, predictive models, and value of gait speed alone compared with the short physical performance battery. J Gerontol A Biol Sci Med Sci 55(4): M221-31. Shruthi S, Oliver D, Serge P, Ran R, Magdaleno [...] from flat with modified independence using leg test carrier as needed (MET 08/11) 4. Pt. to perform all transfers with modified independence using FWW (MET 08/11) 5. Pt. to ambulate 150 feet with supervision and least restrictive assistive device Plan: Therapy Frequency (PT): 1-3 more times for therapy interventions as outlined in initial evaluation. Patient agrees with plan as stated. Time IN / OUT: 9927-5973 Total Minutes, Physical Therapy: 30 Billing Code: x2 TEF Thank you for this consult. Patrica Galvan, PT Pager: [phone] Physical Therapy Inpatient Rehabilitation Department Arabella Sargent [...] encounter: 47.9 kg (105 lb 11.2 oz). [place] Body Weight: 52.3 kg Usual Body Weight: [...] line): Not assessed Lean muscle loss to Latter-Day region (temporalis muscle): None present Clavicle bone region (pectoralis major): None present Dorsal hand (interosseous muscle): Not assessed Shoulder (deltoid): Moderate Scapular bone region (latissimus dorsi, trapezius muscles): Mild Thigh region (quadriceps muscle): Moderate Posterior calf region (gastrocnemius muscle): None present Fluid accumulation: Not assessed Nutrition intake and intake history/Interview: Visited [facility] this morning. She reported aweak appetite which [...] Protein-calorie Malnutrition: Not enough data to assess (Audi et al, JPEN J Parenteral Enteral Nutr. 2011; [...] RLE, standard hip precautions (verified with ortho METAL POLISHER due to posterior approach), abduction pillow in [...] from flat with modified independence using leg test carrier as needed 4. Pt. to perform all transfers with modified independence using FWW 5. Pt. to ambulate 150 feet with supervision and least restrictive assistive device Plan: Therapy Frequency (PT): 1-3 more times for therapy interventions as outlined in initial evaluation. Patient agrees with plan as stated. Time IN / OUT: 5838-0153 Total Minutes, Physical Therapy: 17 Billing Code: x1 TEF Thank you for this consult. Patrica Galvan, PT Pager: [phone] Physical Therapy Inpatient Rehabilitation Department Cheri Perdue [...] (pf), ketorolac, cloNIDine Interval History: Transferred from [facility] on [facility] On 3L Dilaudid x 1 Ativan [...] Intake/Output Summary (Last 24 hours) at 08/10/2021 0918 Last data filed at 08/10/2021 0511 Gross [...] 209 Last 3 Lytes Recent Labs 08/10/21 0625 08/09/21 0822 08/08/21 0921 NA 133* 134* 131* K 3.6 3.9 4.5 CL 95* 99 98 CO2 31 27 25 BUN 8 9 12 CREATININE 0.42* 0.53* 0.67* Last 3 LFTs No results for input(s): AST, ALT, ALKPHOS, BILITOT, BILIDIR in the last 7068 hours. Last Ca, Mg, Phos Recent Labs 08/10/21 0625 08/09/21 1713 08/09/21 0822 CALCIUM 8.5 -- 8.5 PHOS 1.6* < [...] who have questions please contact the health child care worker that requested your imaging first. Electronically signed by: Alejandro Cortez MD, [facility] ([phone]), at 08/06/2021 11:51 AM XR Chest PA [...] who have questions please contact the health child care worker that requested your imaging first. Electronically signed by: Angelica Banks MD, [facility] ([phone]), at 08/09/2021 1:41 PM Assessment: Paradise Abel??is [...] per PT, when out of withdrawal Team Pager(MD Coverage 10/12): #[phone] PCP: FRANCE Chen [phone] Attestation: IPI Certification I certify that I am a D-H credentialed attending provider with admitting privileges and that the patient meets or has met medical necessity to require an inpatient IPI level of care meeting a minimum of two midnights or is on the [facility] inpatient only procedure list (status C) due [...] Time Provider Department Center 09/04/2021 11:30 AM [facility] DX ROOM 2 Xray [facility] Rad 09/04/2021 1:00 PM Bre Ramirez PA [facility] Arabella Sargent - 08/09/2021 2:12 PM EDT [...] encounter: 47.9 kg (105 lb 11.2 oz). [place] Body Weight: 52.3 kg Usual Body Weight: see below Wt Readings from Last 10 Encounters: 08/08/21 47.9 kg (105 lb 11.2 oz) 06/28/20 41 kg (90 lb 6.2 oz) Assessment: Estimated needs: Calories: 8352-8934 (25-30 kcal/kg) Protein: 54-78 grams (1.2-1.5 g/kg) [...] Protein-calorie Malnutrition: Not enough data to assess (Audi et al, JPEN J Parenteral Enteral Nutr. 2011; 36(3): 273-83) Nutrition to continue to follow up while inpatient Thank you, Arabella Sargent Tereza Schuster, OT - 08/09/2021 1:37 PM EDT Occupational Therapy Note Document Type: contact Total Minutes, Occupational Therapy: 0 Reason: Discussed pt's status with the RN this am. Per report pt is scorring an 8 on the CIWA, increasingly impulsive, tremulous, delirious, and hallucinating. Will defer at this time and f/u as appropriate/able. Pager: [phone] Tereza Schuster, OTR/L 08/09/2021 Occupational Therapy Rehabilitation [...] scale, transferred to hospital medicine service (from [facility]) Social History: Patient lives alone in a [...] RLE, standard hip precautions (verified with ortho METAL POLISHER due to posterior approach), abduction pillow in [...] from flat with modified independence using leg test carrier as needed 4. Pt. to perform all transfers with modified independence using FWW (MET 08/08) 5. Pt. to ambulate 150 feet with supervision and least restrictive assistive device (MET 08/08)?? Plan: Therapy Frequency (PT): 1-3 more times for therapy interventions as outlined in initial evaluation. Patient agrees with plan as stated. Time IN / OUT: 1266-1177 Total Minutes, Physical Therapy: 10 Billing Code: x1 TEF Thank you for this consult. Patrica Galvan, PT Pager: [phone] Physical Therapy Inpatient Rehabilitation Department Carlos Odell - 08/09/2021 12:43 PM EDT Roller Die Cutting Machine Operator Encounter Note Patient Name: Paradise Abel : [id number] MR#: [id number] Admit Date: 08/06/2021 12:25 AM Hospital Day 3 days Narrative: A response to a page from patient's nurse for a requested for a Refrigeration System Installer per patient. Assessment: Patient is lying in [...] Follow-up: As needed. Time in Direct Care: 15 Carlos Odell 08/09/2021 Ngozi Rinaldi MD - 08/09/2021 [...] Time Provider Department Center 09/04/2021 11:30 AM [facility] DX ROOM 2 MH Xray [facility] Rad 09/04/2021 1:00 PM Bre Ramirez PA [facility] Arabella Gutierrez RN - 08/08/2021 7:41 PM [...] Bed Alarm Set Patrica Galvan, PT - 08/08/2021 3:27 PM EDT Physical [...] RLE, standard hip precautions (verified with ortho METAL POLISHER due to posterior approach), abduction pillow in [...] of walker, WBAT, standard hip precautions, leg test carrier, therex, ongoing mobility, and DC planning, with [...] from flat with modified independence using leg test carrier as needed 4. Pt. to perform all transfers with modified independence using FWW (MET 08/08) 5. Pt. to ambulate 150 feet with supervision and least restrictive assistive device (MET 08/08)?? Plan: Therapy Frequency (PT): 1-3 more times for therapy interventions as outlined in initial evaluation. Patient agrees with plan as stated. Time IN / OUT: 9050-0702 Total Minutes, Physical Therapy: 39 Billing Code: x3 TEF Thank you for this consult. Patrica Galvan, PT Pager: [phone] Physical Therapy Inpatient Rehabilitation Department Kem Akers MSW - 08/08/2021 2:59 PM EDT FLOOR COVERINGS INSTALLER met with pt to explore her support [...] consumption and requested information to assist her. Mat Machine Tender presented pt with [employer] booklet and reviewed it, specifically focusing on the resource page. Mat Machine Tender also provided pt with a list of [...] is unclear as these relationshipsare new. Tereza Schuster, OT - 08/08/2021 9:17 AM EDT Occupational [...] via NC Interval History: Per Ortho 08/08: ELENITA. Resting well this AM. Pain well controlled. desaturaton event 76 -->83 increased O2 to 6LNC, saturation increased to 96 after discussing with nurse, now ID 4L this AM. Worked with PT/OT, anticipate DC to home, but will continue to work PT/OT while here. S: I am usually on 4L at home, will increase to 5 with activity sometimes O: Patient seen for skilled OT treatment, and demonstrated the following: ?? Self-care: ?? I [facility] EOB - good dynamic sitting balance ?? I washing UB/face sitting EOB - declined washing LB ?? S [facility] pants sitting EOB, S performing pant hike - cued for dressing surgical side first for ease ?? Set up oral hygiene on her tray table at the conclusion of the session ?? Required increased time and frequent rest breaks for integration of PLB to ensure her SpO2 levelsstabilized ?? Functional Mobility: ?? Supine>sit: I with use of leg test carrier and HOB >/= 40* ?? Sit>stand: S [...] to return home with support/assistance fromfriends and AUTOMOTIVE TECHNICIAN, home OT when performing her daily tasks. [...] Minutes, Occupational Therapy: 29 (x2 [facility] [phone]) Pager: [phone] Tereza Schuster, OTR/L 08/08/2021 Occupational Therapy Rehabilitation [...] Time Provider Department Center 09/04/2021 11:30 AM [facility] DX ROOM 2 Xray [facility] Rad 09/04/2021 1:00 PM Bre Ramirez PA [facility] Monika Almazan RN - 08/08/2021 4:59 AM EDT Pt desat to between 62-71 with any kind of activity, while on 6L NC. Pt ambulated to BR and repositioned in bed and O2 sats steady at between 60s-70s, with the highest being 82, nebulizer treatment offered and administered with good effects, Covering provider Jose Monahan notified requesting RT c/s for further eval, [...] Patrica Galvan, PT - 08/07/2021 2:53 PM EDTSummary: DC REC: home with home PT and PRN [...] 20.72) performed by Dusty Peterson MD at [facility] MAIN OR ??? PRO UPPER GI ENDOSCOPY, DIAGNOSTIC N/A 11/19/2018 EGD, UPPER GI ENDOSCOPY performed by Sandor Dasilva MD at [facility] ENDOSCOPY Social History: Patient lives alone [...] RLE, standard hip precautions (verified with ortho METAL POLISHER due to posterior approach), abduction pillow in [...] 12/27 R hip, R thigh With activity 12/27 Vital Signs: At Rest With Activity SpO2 [...] Bed Mobility: Supine to Sit: supervised, leg test carrier to RLE, toward R side EOB. Increased [...] of walker, WBAT, standard hip precautions, leg test carrier, therex, ongoing mobility, and DC planning, with good understanding/demonstration. Patient status, treatment, and mobility recommendations discussed with nursing. Assessment: Paradise Abel was seen today for [...] from flat with modified independence using leg test carrier as needed 4. Pt. to perform all [...] in this evaluation. Time IN / OUT: 0187-4304 Total Minutes, Physical Therapy: 32 Billing Code: Simona Johns, TESx1 Thank you for this consult. Patrica Galvan, PT Pager: [phone] Physical Therapy Inpatient Rehabilitation Department Ngozi Rinaldi [...] applicable: n/a CPG GOAL OUTCOME EVALUATION: Vicky Rm MD - 08/06/2021 2:11 PM EDT ORTHOPAEDIC [...] y.o. female Day of Surgery s/p right JACSKON after FNFx, progressing well with stable vitals. [...] AM EDT Physical Therapy Contact Note 08/06/21 0981 Evaluation & Treatment Document Type contact Total Minutes, Physical Therapy 0 Comment, Session Not Performed Consult received, chart reviewed. Pt sustained R FNF 2/2 mech fall, plan for OR for JACKSON, PT will follow up postoperatively as appropriate/able. Makenna Chavira, PT Pager: [phone] Physical Therapy Inpatient Rehabilitation Department Dusty Peterson [...] H&P from medicine on 08/06/21 - Dr. Valdes Paradise Abel is a pleasant 60 y.o. 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 She was in her usual state of health until this yesterday (08/05) morning when she had a mechanical fall. She is moving into a new apartment in [facility] as she previously lived in a house with her who 2 months ago. She was walking in the apartment and tripped on a box falling onto her right hip. She immediately was in pain and dragged herself up to the chair. Her neighbor rushed over and they called EMS who took her to [place]. She was found to have a femoral neck fracture and [facility] was contacted for transfer. ?? She [...] Last drink was 08/04. On arrival to [place], her XANDER was 197. Also, her urine [...] 121/79 (!) 88 % 5 L/min NC 08/08/211999 36.8 ??C (98.3 ??F) (!) 109 bpm [...] Ins/Outs: Intake/Output Summary (Last 24 hours) at 08/09/2021927 Last data filed at 08/09/2021 0357 Gross [...] >L LE edema Labs: Recent Labs 08/09/21 0808/08/2192008/07/21341 WBC 8.3 9.9* 8.8 HGB 9.0* 9.3* 10.6* HCT 28.7* 29.6* 33.5* PLATELET 232 209 199 Recent Labs 08/09/21 0808/08/21 0908/07/21 034 NA 134* 131* 137 K 3.9 4.5 4.1 CL 99 98 100 CO2 27 25 24 BUN 9 12 12 CREATININE 0.53* 0.67* 0.56* No results for input(s): AST, ALT, ALKPHOS, BILITOT, BILIDIR in the last 168 hours. Recent Labs 08/09/21 0808/08/21 0908/07/2134120/22 0354 CALCIUM 8.5 8.2* 7.8* 8.5 MAGNESIUM 0.74 -- 0.89 0.60* PHOS 1.6* -- -- 2.8 Recent Labs 08/06/21 0354 INR 0.9 PT 10.2 PTT 26 No results for input(s): CK, TROPONINT in the last 168 hours. No results for input(s): POCGLU in the last 168 hours. Microbiology: Microbiology Results (Last 30 days) Procedure Component Value Units Date/Time COVID-19 PCR [[id number]] Collected: 08/06/21 0300 Lab Status: Final result [...] using the Simplexa COVID-19 Direct Assay by Btarget as authorized by the FDA issued Emergency [...] Department of Pathology and Laboratory Medicine at [facility], certified under the Clinical Laboratory Improvement Amendments [...] fact sheets at the following FDA website: https://www.fda.gov/medical-devices/ammxrnewhfh-vwjhujn-0774-sehrs-93-paqoquwmx- fmj-xabdpdrwqlzkaf-cceoqxq-devices/abtgo-alinthenrqd-laei SARS-CoV-2 Source PAVING FOREMAN Swab Inpatient Medications: Scheduled Meds: ??? thiamine [...] withdrawal concerning for delirium tremens now in dfa76-28 hour window with significant delirium. Is outside [...] MD Internal Medicine - PGY3 Medicine Consults #[id number] Associated attestation - Ronit Glover MD - 08/09/2021 1:42 PM EDT Attending Attestation Please see Dr. Hraman's note for details of the patient history [...] of two midnights or is on the [facility] inpatient only procedure list (status C) due [...] EDT ORTHOPAEDIC SURGERY H&P NOTE ATTENDING: MD Sherif Paradise Abel is a 60 y.o. female [...] right femoral neck fracture. Initially presented to [facility] and transferred to [facility] for [place]. No other injuries. CT head/c-spine and C/A/P done at [facility] due to ethanol detected on screen and [...] did call an ambulance and was takento [facility] H. She denies any alcohol use that morning [...] (5/5) shoulder abduction, elbow flexion/extension, wrist flexion/extension, correction worker, EPL, AIN, IO Brisk capillary refill distally [...] (5/5) shoulder abduction, elbow flexion/extension, wrist flexion/extension, correction worker, EPL, AIN, IO Brisk capillary refill distally [...] recent passing from cancer. Will place on [facility] protocol regardless and appreciate medicine input after [...] information for follow-up Home Health & Hospice, [address] [place] [address] Transportation: family or friend will provide Wheelchair [...] Insurance: N/A Prescription Coverage: Yes Preferred Pharmacy: [facility] [address] [facility] [address] [facility] [id number] [facility] [address] [place] [address] [facility] [address] [facility] [address] [facility] [address] [place] [address] [address] [facility] [address] [facility] [address] [facility] [address] [facility] [address] This plan was formulated with input from patient, and team. All are in agreement with plan. Erin Alfredo RN, MSN Booster Plant Operator - Medicine Office of Care Management Pager: [phone] Plan of Care - Tracy Bynum RN [...] d/c goals. PLAN MOVING FORWARD: BiPAP at assistant administrator oxygen and PCO2 Ativan scores Q4 Pain [...] d/c goals. PLAN MOVING FORWARD: BiPAP at assistant administrator oxygen and PCO2 Ativan scores Q4 Pain [...] VBG, her pH is nearly normal. Acute MV4doixoffc is usually in the setting of a drop in pH although the contraction alkalosis leading to [id number] makes it a bit less clear if [...] page the critical care fellow at pager [phone] for questions or new concerns. Abel Blake [...] assistance with ADL's Surveillance [continuous indirect monitoring]: Jeraldo, Purposeful Rounding, Bedside Report Patient-specific fall prevention [...] assistance with ADL's Surveillance [continuous indirect monitoring]: Maskandyo, Purposeful Rounding, Bedside Report Patient-specific fall prevention [...] Insurance: N/A Prescription Coverage: Yes Preferred Pharmacy: [facility] [address] [facility] [address] [facility] [phone] [address] [facility] [address] [facility] [address] [facility] [address] [place] [address] [address] [facility] [address] [facility] [address] [facility] 12 [facility] [address] [facility] [address] [facility] [address] Last Physical Therapy Recommendation: home with home [...] information for follow-up Home Health & Hospice, [place] [address] [place] [address] Transportation: family or friend will provide Barriers to discharge: None; Pending medical course and recovery Plan going forward: Care Management will continue to follow and assist with discharge planning and coordination of care as indicated. Anticipated Date of Discharge: 08/11/2021 Erin Alfredo RN, MSN Booster Plant Operator - Medicine Office of Care Management Pager: [phone] Plan of Care - Jeanie Hagen RN [...] Surveillance [continuous indirect monitoring]: Bed alarm set, Ernesto, Purposeful Rounding, Nurse Knowledge Exchange Initial Assessments [...] Covid Vaccination Status: 1st, 2nd & booster (Pfizer) Last COVID test: Lab Results Component Value Date [id number] Not Detected 08/06/2021 Past medical History: Past [...] declines If AD's have not been completed Brothseda Eldridge would be surrogate decision maker per ID surrogate decision making law. (Only good for 180 days) Any patient receiving care at [facility] must abide by ID law. The hierarchy for surrogate decision making [...] (i) The agent with financial power of winchman/crane operator or a conservator appointed in accordance with [...] Walker at home) Home Address confirmed as: [address] [place] [address] Social & Family Supports: All names listed [...] Insurance: N/A Prescription Coverage: Yes Preferred Pharmacy: [address] [address] [address] [facility] [address] [facility] [address] [facility] [address] [place] [address] [address] [facility] [address] [facility] [address] [place] Status: Patient is a : No Primary Care Provider: FRANCE Chen [phone] Patient/Caregiver Goals of Treatment: Patient would like [...] where referrals are placed. Provided patient with [facility] Star Quality Rating for Home care hand out. Patient requests referral to [facility]. PHONE: [phone] FAX: [phone]. Expected date of discharge: 08/07/2021. Referral routed to the Wheel Of Fortune Dealer for matching with agency/vendor and to provide [...] transition of care planning. Malinda BOJORQUEZ, RN Phone: [phone] Pager: [phone] Initial Assessments - Tereza Schuster OT - 08/07/2021 10:04 AM EDT Occupational [...] 20.72) performed by Dusty Peterson MD at [facility] MAIN OR ??? PRO UPPER GI ENDOSCOPY, DIAGNOSTIC N/A 11/19/2018 EGD, UPPER GI ENDOSCOPY performed by Sandor Dasilva MD at [facility] ENDOSCOPY Social History: Patient lives alone [...] of AD when showering for safety Toileting: Sherman; Recommend S-SBA for completion of toileting Functional Mobility: Supine to sit: SBA with HOB>40* and use of leg test carrier for RLE to EOB on the R [...] return home with support/assistance from friends and AUTOMOTIVE TECHNICIAN, home OT when performing her daily tas [...] planning. Total Minutes, Occupational Therapy: 31 (Eval [id number]) 2017 OT Evaluation Code Rationale: ?? Diagnosis [...] instrument andmeasurable assessment of functional outcome. Pager: [phone] Tereza Schuster, OTR/L 08/07/2021 Occupational Therapy Rehabilitation Department Consult Note - Roseline Harman MD - 08/07/2021 9:19 AM EDT Medicine Consults Progress Note Consult Team/Pager: Medicine #[phone] ID: Paradise Abel is a pleasant 60 [...] 93 18 -- 92 % 3 L/min NC 08/06/21 1130 -- 90 bpm 90 17 122/85 95 % 3 L/min NC 08/06/21 1145 -- 91 bpm 91 18 112/79 96 % 3 L/min NC 08/06/21 1200 -- 88 bpm 88 16 112/72 95 % 3 L/min NC 08/06/21 1229 37.7 ??C (99.9 ??F) 98 bpm -- 16 112/71 95 % 3 L/min NC 08/06/21 1232 -- -- -- -- -- -- 3 L/min NC 08/06/21 1246 36.6 ??C (97.9 ??F) 97 bpm -- 16 129/71 96 % 2 L/min NC 08/06/21 1520 36.9 ??C (98.4 ??F) 92 bpm -- 16 108/64 92 % 3 L/min NC 08/06/21 1953 36.8 ??C (98.2 ??F) 97 [...] R >L LE edema Labs: Recent Labs 08/07/2134108/06/21 0354 WBC 8.8 8.3 HGB 10.6* 12.4 HCT 33.5* 37.7 PLATELET 199 187 Recent Labs 08/07/21 0342 08/06/21 0354 NA 137 137 K 4.1 3.4* CL 100 97* CO2 24 28 BUN 12 21* CREATININE 0.56* 0.58* No results for input(s): AST, ALT, ALKPHOS, BILITOT, BILIDIR in the last 168 hours. Recent Labs 08/07/21 03408/06/21 0354 CALCIUM 7.8* 8.5 MAGNESIUM 0.89 0.60* PHOS -- 2.8 Recent Labs 08/06/21 0354 INR 0.9 PT 10.2 PTT 26 No results for input(s): CK, TROPONINT in the last 168 hours. No results for input(s): POCGLU in the last 168 hours. Microbiology: Microbiology Results (Last 30 days) Procedure Component Value Units Date/Time COVID-19 PCR [[id number]] Collected: 08/06/21 0300 Lab Status: Final result [...] diagnosis of COVID-19 is performed using the its learning COVID-19 Direct Assay by Btarget as authorized by the FDA issued Emergency [...] Department of Pathology and Laboratory Medicine at [facility], certified under the Clinical Laboratory Improvement Amendments [...] fact sheets at the following FDA website: https://www.fda.gov/medical-devices/pkktfsjtlcg-rdcfier-3495-wqxah-34-lzukbuoov- orx-trmhcsxnyinlno-yatxjst-devices/rmsoz-afrysybtcgw-cvzd SARS-CoV-2 Source PAVING FOREMAN Swab Inpatient Medications: Scheduled Meds: ??? acetaminophen [...] ??? sodium chloride 0.9% 1,000 mL (08/07/21 9693) PRN Meds: HYDROmorphone OR HYDROmorphone OR HYDROmorphone, [...] Peterson MD - 08/06/2021 9:26 AM EDT [facility] Operative Note Patient Name: Paradise Abel : [id number] MR#: [id number] Case Date: 08/06/2021 Surgeon: Surgeon(s) and Role: [...] Orders (From admission, onward) Start Ordered 08/06/21 0925 Specimen to Pathology (Multiple Specimen to Pathology [...] Implant Name Type Inv. Item Serial No. Filament Wound Parts Fabricator Lot No. LRB No. Used Action CEMENT BONE MEDIUM VISCOSITY 40GM SINGLE DOSE PMMA SMARTSET ([id number]) (AutoReq) - [id number] IMPLANTS CEMENT BONE MEDIUM VISCOSITY 40GM SINGLE DOSE PMMA SMARTSET ([id number]) (AutoReq) ZipZap COUNTS INCLUDE 234 BEDS AT THE [facility] [id number] Right 2 Implanted SHELL ACET HIP 48MM POR CTD 2 HOLE TI MPACT ([id number]) (AUTOREQ) - [id number] IMPLANTS SHELL ACET [id number] POR CTD 2 HOLE TI MPACT ([id number]) (AutoReq) [employer]ACTA [place] - MEDACTA [place] [id number] Right 1 Implanted SCREW 6.5X30MM CANC TI MPACT ([id number]) (AUTOREQ) - [id number] IMPLANTS SCREW 6.5X30MM CANC TI MPACT (3307526) (AutoReq) [employer] [place] - MEDACTA [place] [id number] Right 1 Implanted LINER ACET HIP 32MM SZ C FLT POLY MPACT ([id number]) (AutoReq) - [id number] IMPLANTS LINER ACET HIP 32MM SZ C FLT POLY MPACT ([id number]) (AutoReq) [employer] [place] - [place]ACT[employer] [place] [id number] Right 1 Implanted STEM FEMORAL HIP SZ 0 STND ZAC CLLRLS REG NCK SS QUADRA P ([id number]) (AUTOREQ) - [id number] IMPLANTS STEM FEMORAL HIP SZ 0 STND ZAC CLLRLS REG NCK SS QUADRA P ([id number]) (AutoReq) [employer] [place] - [place] [place] [id number] Right 1 Implanted RESTRICTOR HIP 10-16MM CEMENT POLY ([id number]) - [id number] IMPLANTS RESTRICTOR HIP 10-16MM CEMENT POLY (8579903) PAU & [facility] [id number] Right 1 Implanted HEAD FEMORAL HIP 32MM MED 0MM OFFSET 12/14 TPR CERAMIC ([id number]) (AUTOREQ) - [id number] IMPLANTS HEAD FEMORAL HIP 32MM MED 0MM OFFSET 12/14 TPR CERAMIC ([id number]) (AutoReq) MEDACTA [facility] - MEDACTA [id number] Right 1 Implanted Identification/positioning: After being identified, [...] it with pulsatile normal saline again. A Vanksen sponge was placed in the acetabular cup [...] taps. Overhanging cement was removed with a [place]. We kept pressure off of the stem [...] 1960 PCP: FRANCE Chen PCP phone number: [phone] Date of Admission: 08/06/2021 ( Hospital Day [...] is moving into a new apartment in [facility] as she previously lived in a house with her who 2 months ago. She was walking in the apartment and tripped on a box falling onto her right hip. She immediately was in pain and dragged herself up to the chair. Her neighbor rushed over and they called EMS who took her to [place]. She was found to have a femoral neck fracture and [facility] was contacted for transfer. She was [...] Last drink was 08/04. On arrival to [place], her XANDER was 197. Also, her urine [...] %] Intake/Output Summary (Last 24 hours) at 08/06/2021 0327 Last data filed at 08/06/2021 0319 Gross [...] for her FOLEY (lymphangioleiomyomatosis) followed by her Data Coder Operator Dr. Arce at [facility], and this warrants evaluation of vit D [...] Date/Time Associated Comments Diagnosis BLOOD GAS VENOUS (NL) Timed 08/14/2021 5:32 AM Results for this [...] in the results section. BLOOD GAS VENOUS (COUNT INCLUDES THE [facility]) STAT 08/13/2021 1:59 PM Results for this EDT procedure are i n the results section. BLOOD GAS VENOUS (COUNT INCLUDES THE [facility]) STAT 08/13/2021 10:30 R esults for [...] who have questions please contact the health child care worker that requested your imaging first. ? Electronically signed by: Indu Fortune MD, [facility] ([phone]), at 09/04/2021 1:55 PM Narrative 09/04/2021 1:55 [...] ho have questions please contact the health child care worker that requested your imaging first. Electronically signed by: Indu Fortune MD, [facility] ([phone]), at 09/04/2021 1:55 PM Trung Gorman MD IMG DX ORDERABLES (ABNORMAL) Blood Gas Venous (08/14/2021 5:32 AM EDT) athologist Signature pH [place] 7.36 7.32 - [facility] 7.42 [facility] pCO2 [place] 66 41 - 51 [facility] (Critical) mmHg [facility] Comment: Called by: john, Read back by: Shaye Bynum, Date/Time:08/14/21 05:57. pO2 Merritt 43 (H) 25 - 40 mmHg [facility] HCO3 [place] 36.6 mmol/L [facility] BE [place] 11.1 mmol/L [facility] Hgb Blood Gas 8.8 (L) 11.7 - 15.5 g/dL [facility] O2HB Merritt 77.1 % [facility] COHB Merritt 0.3 % [facility] Comment: Nonsmokers: 0.5-1.5% COHB Smokers: Variable, but usually less than 10% Toxic: 20-30% COHB Lethal: Greater than 60% COHB METHB Merritt 0.3 <=1.5 % [facility] Na Whole Blood 137 135 - 145 mmol/L [facility] K Whole Blood 3.8 3.5 - 5.0 mmol/L [facility] Comment: Please note: Patients with WBC >100,000 may have falsely elevated Potassium levels. Contact the Clinical Chemistry L aboratory if there are any questions. ICa Whole Blood 1.27 1.15 - 1.33 mmol/L [facility] Comment: Note: ??Total bilirubin higher than 20 m g/dL may lead to falsely low ionized calcium. CL Whole Blood 96 (L) 98 - 107 mmol/L [facility] Gluc Whole Bld 68 65 - 199 mg/dL [facility] Comment: Diabetes: >=200 mg/dL plus symp toms Lactate WB 1.2 0.5 - 2.2 mmol/L [facility] BGas Source Venous [facility] Specimen Anatomical Collection Method Collection Time Receive d Time (Source) Location / / Volume Laterality Blood Venous Draw / 08/14/2021 5:32 AM 08/15/19 5:52 Unknown EDT AM EDT Resulting Agency Comment Spec In Lab Zee Madden MD CHEMISTRY ORDERABLES Performing Organization Address City/State/ZIP Code Phon e Number [place] [id number] (ABNORMAL) Differential, Automated (08/14/2021 3:39 AM EDT) [facility] Method Time Signature Neutrophils % 70.4 % [facility] Neutr Abs (ANC) 6.45 (H) 1.70 - [facility] 6.10 [facility] x10(3)/[facility] LABORATORY Lymphocytes % 12.8 % [facility] Lymphocytes Abs 1.2 0.9 - 3.2 [facility] x10(3)/[facility] LABORATORY Monocytes % 12.5 % [facility] Monocyte Abs 1.1 (H) 0.3 - 0.9 [facility] x10(3)[facility] LABORATORY Eosinophils % 2.0 % [facility] Eosinophils Abs 0.2 0.0 - 0.4 [facility] x10(3)[facility] LABORATORY Basophils % 0.7 % [facility] Basophils Abs 0.1 0.0 - 0.1 [facility] x10(3)/[facility] LABORATORY Immature Gran % 1.60 % [facility] Comment: Immature granulocytes(IG's)percentage an d absolute count will include metamyelocytes, myelocytes, and promyelo cytes. Blood smears from CBCs yielding IG's will be scanned manually for concrosa m danberyl. If this scan disagrees with the automated IG or if promyelocytes are not ed, a manual differential will be performed. Zenaida Gran Abs 0.15 (H) 0.00 - 0.04 x10(3)/[facility] LABORATORY Specimen Anatomical Collection Method Collection Time Receive d Time (Source) Location / / Volume Laterality Blood 08/14/2021 3:39 AM 4:25 EDT AM EDT Resulting Agency Comment Spec In Lab Jenise David MD HEMATOLOGY ORDERABLES Performing Organization Address City/State/[place] [address] (ABNORMAL) Hemogram (08/14/2021 3:39 AM EDT) [facility] gist Method Time Signature WBC 9.2 4.0 - 9.5 [facility] x10(3)/[facility] LABORATORY RBC 2.71 (L) 4.00 - [facility] 5.21 [facility] x10(6)/[facility] LABORATORY Hemoglobin 9.1 (L) 11.7 - [facility] 15.5 g/dL [facility] Hematocrit 29.6 (L) 35.7 - [facility] 45.8 % [facility] MCV 109.2 (H) 82.6 - [facility] 94.4 [facility] [facility] LABORATORY MCH 33.6 (H) 27.1 - [facility]0 pg [facility] LABORATORY MCHC 30.7 (L) 31.7 - [facility] 35.0 g/dL [facility] LABORATORY Platelets 490 (H) 145 - 357 [facility] x10(3)/[facility] LABORATORY RDWSD 55.6 (H) 37.0 - [facility] 46.0 [facility] LABORATORY RDWCV 14.1 11.5 - [facility] 14.1 % [facility] LABORATORY MPV 10.5 7.6 - 12.9 [facility] LABORATORY nRBC % Auto 0.0 % [facility] LABORATORY nRBC Abs Auto 0.000 0.000 - [facility] 0.000 [facility] x10(3)/[facility] LABORATORY Specimen Anatomical Collection Method Collection Time Receive d Time (Source) Location / / Volume Laterality Blood 08/14/2021 3:39 AM 4:25 EDT AM EDT Resulting Agency Comment Spec In Lab Jenise David MD HEMATOLOGY ORDERABLES Performing Organization Address City/State/[place] [address] (ABNORMAL) Basic Metabolic Panel (non-fasting) (08/14/2021 3:39 AM EDT) P athologist Signature Glucose Lvl 96 65 - 199 [facility] mg/dL [facility] LABORATORY Comment: Diabetes: >=200 mg/dL plus symp toms BUN 12 8 - 18 mg/dL [facility] LABORATORY Creatinine 0.59 (L) 0.70 - 1.20 mg/dL [facility] LABORATORY Sodium 142 135 - 145 mmol/L [facility] LABORATORY Potassium 4.5 3.5 - 5.0 mmol/L [facility] LABORATORY Comment: Please note: ??Patients with WBC >100,00 0 may have falsely elevated Potassium levels. ??For accurate Potassium quantif ication in these patients send serum separator tube (gold top) for subsequent determinations. ??Contact the Clinical Chemistry Laboratory if there are any qu estions. Chloride 96 (L) 98 - 107 mmol/L [facility] LABORATORY CO2 34 (H) 22 - 31 mmol/L [facility] LABORATORY Anion Gap 12 5 - 15 mmol/L [facility] LABORATORY Calcium 9.7 8.5 - 10.5 mg/dL [facility] LABORATORY Estimated GFR 100 >=60 mL/min/1.73 m?? [facility] LABORATORY Comment: This patient? s estimated [...] Organization Address City/State/ZIP Code Phon e Number [place] [phone] HOSPITAL LABORATORY Drive (ABNORMAL) Blood Gas Venous (08/13/2021 1:59 PM EDT) athologist Signature pH [place] 7.33 7.32 - [facility] 7.42 [facility] LABORATORY pCO2 [place] 82 41 - 51 [facility] (Critical) mmHg [facility] LABORATORY Comment: Called by: MELANIE, Read back by: Shaye Plummer, Date/Time:08/13/21 14:14. pO2 [place] 20 (L) 25 - 40 mmHg [facility] LABORATORY HCO3 [place] 42.7 mmol/L [facility] LABORATORY BE [place] 16.8 mmol/L [facility] LABORATORY Hgb Blood Gas 10.5 (L) 11.7 - 15.5 g/dL [facility] LABORATORY O2HB [place] 28.7 % [facility] LABORATORY COHB [place] 0.0 % [facility] LABORATORY Comment: Nonsmokers: 0.5-1.5% COHB Smokers: Variable, but usually less than 10% Toxic: 20-30% COHB Lethal: Greater than 60% COHB METHB [place] 0.2 <=1.5 % [facility] LABORATORY Na Whole Blood 136 135 - 145 mmol/L [facility] LABORATORY K Whole Blood 4.1 3.5 - 5.0 mmol/L [facility] LABORATORY Comment: Please note: Patients with WBC >100,000 may have falsely elevated Potassium levels. Contact the Clinical Chemistry L aboratory if there are any questions. ICa Whole Blood 1.29 1.15 - 1.33 mmol/L [facility] LABORATORY Comment: Note: ??Total bilirubin higher than 20 m g/dL may lead to falsely low ionized calcium. CL Whole Blood 91 (L) 98 - 107 mmol/L [facility] LABORATORY Gluc Whole Bld 95 65 - 199 mg/dL [facility] LABORATORY Comment: Diabetes: >=200 mg/dL plus symp toms Lactate WB 1.5 0.5 - 2.2 mmol/L [facility] LABORATORY BGas Source Venous [facility] LABORATORY Specimen Anatomical Collection Method Collection Time Receive d Time (Source) Location / / Volume Laterality Blood Venous Draw / 08/13/2021 1:59 PM 08/14/19 2:07 Unknown EDT PM EDT Resulting Agency Comment Spec In Lab Jenise David MD CHEMISTRY ORDERABLES Performing Organization Address City/State/ZIP Code Phon e Number [place] [phone] HOSPITAL LABORATORY Drive (ABNORMAL) Blood Gas Venous (08/13/2021 10:30 AM EDT) P athologist Signature pH [place]itt 7.33 7.32 - [facility] 7.42 [facility] LABORATORY pCO2 [place] 75 41 - 51 [facility] (Critical) mmHg [facility] LABORATORY Comment: Called by: ailyn, Read back by: sherry barney, Date/Time:08/13/21 10:53. pO2 [place] 36 25 - 40 mmHg [facility] LABORATORY HCO3 [place] 38.7 mmol/L [facility] LABORATORY BE [place] 12.7 mmol/L [facility] LABORATORY Hgb Blood Gas 9.6 (L) 11.7 - 15.5 g/dL [facility] LABORATORY O2HB [place] 64.6 % [facility] LABORATORY COHB Mreritt 0.4 % [facility] LABORATORY Comment: Nonsmokers: 0.5-1.5% COHB Smokers: Variable, but usually less than 10% Toxic: 20-30% COHB Lethal: Greater than 60% COHB METHB [place]itt 0.3 <=1.5 % [facility] LABORATORY Na Whole Blood 136 135 - 145 mmol/L [facility] LABORATORY K Whole Blood 3.6 3.5 - 5.0 mmol/L [facility] LABORATORY Comment: Please note: Patients with WBC >100,000 may have falsely elevated Potassium levels. Contact the Clinical Chemistry L aboratory if there are any questions. ICa Whole Blood 1.22 1.15 - 1.33 mmol/L [facility] LABORATORY Comment: Note: ??Total bilirubin higher than 20 m g/dL may lead to falsely low ionized calcium. CL Whole Blood 95 (L) 98 - 107 mmol/L [facility] LABORATORY Gluc Whole Bld 92 65 - 199 mg/dL [facility] LABORATORY Comment: Diabetes: >=200 mg/dL plus symp toms Lactate WB 1.3 0.5 - 2.2 mmol/L [facility] LABORATORY BGas Source Venous [facility] LABORATORY Specimen Anatomical Collection Method Collection Time Receive d Time (Source) Location / / Volume Laterality Blood Venous Draw / 08/13/2021 10:30 08/13/2021 Unknown AM EDT 10:38 AM EDT Resulting Agency Comment Spec In Lab Jenise David MD CHEMISTRY ORDERABLES Performing Organization Address City/State/[place] [address] Phosphorus (08/13/2021 3:45 AM EDT) P athologist Signature Phosphorus 3.9 2.5 - 4.5 [facility] mg/dL [facility] LABORATORY Specimen Anatomical Collection Method Collection Time Receive d Time (Source) Location / / Volume Laterality Blood Venous Draw / 08/13/2021 3:45 AM 03/27/20 22 3:56 Unknown EDT AM EDT Resulting Agency Comment Spec In Lab Jenise David MD CHEMISTRY ORDERABLES Performing Organization Address City/State/ZIP Code Phon e Number [address] Scan, Peripheral Blood (08/13/2021 3:45 AM EDT) [facility] Time Signature Plat Estimate Increased [facility] LABORATORY RBC Morphology Abnormal [facility] Polychromasia Present >5/HPF [facility] LABORATORY Specimen Anatomical Collection Method Collection Time Receive d Time (Source) Location / / Volume Laterality Blood 08/13/2021 3:45 AM 3:55 EDT AM EDT Resulting Agency Comment Spec In Lab Jenise David MD HEMATOLOGY ORDERABLES Performing Organization Address City/[facility]/ZIP Code Phon e Number [address] (ABNORMAL) Differential, Automated (08/13/2021 3:45 AM EDT) [facility] Method Time Signature Neutrophils % 61.4 % [facility] LABORATORY Neutr Abs (ANC) 5.57 1.70 - [facility] 6.10 [facility] x10(3)/[facility] LABORATORY Lymphocytes % 16.2 % [facility] LABORATORY Lymphocytes Abs 1.5 0.9 - 3.2 [facility] x10(3)/[facility] LABORATORY Monocytes % 17.8 % [facility] LABORATORY Monocyte Abs 1.6 (H) 0.3 - 0.9 [facility] x10(3)/[facility] LABORATORY Eosinophils % 2.9 % [facility] LABORATORY Eosinophils Abs 0.3 0.0 - 0.4 [facility] x10(3)/[facility] LABORATORY Basophils % 0.4 % [facility] LABORATORY Basophils Abs 0.0 0.0 - 0.1 [facility] x10(3)/[facility] LABORATORY Immature Gran % 1.30 % [facility] LABORATORY Comment: Immature granulocytes(IG's)percentage an d absolute count will include metamyelocytes, myelocytes, and promyelo cytes. Blood smears from CBCs yielding IG's will be scanned manually for concor danberyl. If this scan disagrees with the automated IG or if promyelocytes are not ed, a manual differential will be performed. Zenaida Gran Abs 0.12 (H) 0.00 - 0.04 x10(3)/[facility] LABORATORY Specimen Anatomical Collection Method Collection Time Receive d Time (Source) Location / / Volume Laterality Blood 08/13/2021 3:45 AM 3:55 EDT AM EDT Resulting Agency Comment Spec In Lab Jenise David MD HEMATOLOGY ORDERABLES Performing Organization Address City/State/[place] [address] (ABNORMAL) Hemogram (08/13/2021 3:45 AM EDT) [facility] gist Method Time Signature WBC 9.1 4.0 - 9.5 [facility] x10(3)/[facility] LABORATORY RBC 2.76 (L) 4.00 - [facility] 5.21 [facility] x10(6)/[facility] LABORATORY Hemoglobin 9.3 (L) 11.7 - [facility] 15.[facility] g/dL [facility] LABORATORY Hematocrit 29.6 (L) 35.7 - [facility] 45.8 % [facility] LABORATORY MCV 107.2 (H) 82.6 - [facility] 94.4 [facility] LABORATORY MCH 33.7 (H) 27.1 - [facility] CELSO 32.0 pg [facility] LABORATORY MCHC 31.4 (L) 31.7 - [facility] 35.0 g/dL [facility] LABORATORY Platelets 491 (H) 145 - 357 [facility] x10(3)/[facility] LABORATORY RDWSD 55.7 (H) 37.0 - [facility] 46.0 [facility] LABORATORY RDWCV 14.1 11.5 - [facility] 14.1 % [facility] LABORATORY MPV 10.1 7.6 - 12.9 [facility] LABORATORY nRBC % Auto 0.0 % [facility] LABORATORY nRBC Abs Auto 0.000 0.000 - [facility] 0.000 [facility] x10(3)/[facility] LABORATORY Specimen Anatomical Collection Method Collection Time Receive d Time (Source) Location / / Volume Laterality Blood 08/13/2021 3:45 AM 3:55 EDT AM EDT Resulting Agency Comment Spec In Lab Jenise David MD HEMATOLOGY ORDERABLES Performing Organization Address City/State/[place] [address] (ABNORMAL) Basic Metabolic Panel (non-fasting) (08/13/2021 3:45 AM EDT) athologist Signature Glucose Lvl 95 65 - 199 [facility] mg/dL [facility] LABORATORY Comment: Diabetes: >=200 mg/dL plus symp toms BUN 14 8 - 18 mg/dL [facility] LABORATORY Creatinine 0.52 (L) 0.70 - 1.20 mg/dL [facility] LABORATORY Sodium 139 135 - 145 mmol/L [facility] LABORATORY Potassium 4.4 3.5 - 5.0 mmol/L [facility] LABORATORY Comment: Please note: ??Patients with WBC >100,00 0 may have falsely elevated Potassium levels. ??For accurate Potassium quantif ication in these patients send serum separator tube (gold top) for subsequent determinations. ??Contact the Clinical Chemistry Laboratory if there are any qu estions. Chloride 92 (L) 98 - 107 mmol/L [facility] LABORATORY CO2 39 (H) 22 - 31 mmol/L [facility] LABORATORY Anion Gap 8 5 - 15 mmol/L [facility] LABORATORY Calcium 10.0 8.5 - 10.5 mg/dL [facility] LABORATORY Estimated GFR 104 >=60 mL/min/1.73 m?? [facility] LABORATORY Comment: This patient? s estimated [...] David MD CHEMISTRY ORDERABLES Performing Organization Address City/[facility]/ZIP [facility] [place] [address] (ABNORMAL) Iron and TIBC (08/12/2021 9:40 AM EDT) Analysis Performed At [facility] logist Time Signature Iron 32 30 - 150 [facility] mcg/dL [facility] LABORATORY TIBC 168 (L) 250 - 450 [facility] mcg/dL [facility] LABORATORY Iron Saturation 19 (L) 20 - 50 % [facility] LABORATORY Specimen Anatomical Collection Method Collection Time Receive d Time (Source) Location / / Volume Laterality Blood Venous Draw / 08/12/2021 9:40 AM 08/13/19 9:57 Unknown EDT AM EDT Resulting Agency Comment Spec In Lab Jenise David MD CHEMISTRY ORDERABLES Performing Organization Address City/[facility]/ZIP [facility] [place] [address] (ABNORMAL) Differential, Automated (08/12/2021 9:40 AM EDT) [facility] Method Time Signature Neutrophils % 73.7 % [facility] LABORATORY Neutr Abs (ANC) 7.12 (H) 1.70 - [facility] 6.10 [facility] x10(3)/[facility] LABORATORY Lymphocytes % 12.1 % [facility] LABORATORY Lymphocytes Abs 1.2 0.9 - 3.2 [facility] x10(3)/[facility] LABORATORY Monocytes % 10.4 % [facility] LABORATORY Monocyte Abs 1.0 (H) 0.3 - 0.9 [facility] x10(3)/[facility] LABORATORY Eosinophils % 2.4 % [facility] LABORATORY Eosinophils Abs 0.2 0.0 - 0.4 [facility] x10(3)/[facility] LABORATORY Basophils % 0.4 % [facility] LABORATORY Basophils Abs 0.0 0.0 - 0.1 [facility] x10(3)/[facility] LABORATORY Immature Gran % 1.00 % [facility] LABORATORY Comment: Immature granulocytes(IG's)percentage an d absolute count will include metamyelocytes, myelocytes, and promyelo cytes. Blood smears from CBCs yielding IG's will be scanned manually for concor dance. If this scan disagrees with the automated IG or if promyelocytes are not ed, a manual differential will be performed. Zenaida Gran Abs 0.10 (H) 0.00 - 0.04 x10(3)/[facility] LABORATORY Specimen Anatomical Collection Method Collection Time Receive d Time (Source) Location / / Volume Laterality Blood 08/12/2021 9:40 AM 9:56 EDT AM EDT Resulting Agency Comment Spec In Lab Jensie David MD HEMATOLOGY ORDERABLES Performing Organization Address City/State/[place] [address] (ABNORMAL) Hemogram (08/12/2021 9:40 AM EDT) [facility] gist Method Time Signature WBC 9.7 (H) 4.0 - 9.5 [facility] x10(3)/[facility] LABORATORY RBC 2.82 (L) 4.00 - [facility] 5.21 [facility] x10(6)/[facility] LABORATORY Hemoglobin 9.6 (L) 11.7 - [facility] 15.5 g/dL [facility] LABORATORY Hematocrit 29.4 (L) 35.7 - [facility] 45.8 % [facility] MCV 104.3 (H) 82.6 - [facility] 94.4 fL [facility] LABORATORY MCH 34.0 (H) 27.1 - [facility] 32.0 pg [facility] LABORATORY MCHC 32.7 31.7 - [facility] 35.0 g/dL [facility] LABORATORY Platelets 462 (H) 145 - 357 [facility] x10(3)/[facility] LABORATORY RDWSD 53.1 (H) 37.0 - [facility] 46.0 [facility] LABORATORY RDWCV 13.9 11.5 - [facility] 14.1 % [facility] LABORATORY MPV 10.2 7.6 - 12.9 [facility] LABORATORY nRBC % Auto 0.0 % [facility] LABORATORY nRBC Abs Auto 0.000 0.000 - [facility] 0.000 [facility] x10(3)/[facility] LABORATORY Specimen Anatomical Collection Method Collection Time Receive d Time (Source) Location / / Volume Laterality Blood 08/12/2021 9:40 AM 9:56 EDT AM EDT Resulting Agency Comment Spec In Lab Jenise David MD HEMATOLOGY ORDERABLES Performing Organization Address City/State/[place] [address] (ABNORMAL) Basic Metabolic Panel (non-fasting) (08/12/2021 9:40 AM EDT) athologist Signature Glucose Lvl 185 65 - 199 [facility] mg/dL [facility] LABORATORY Comment: Diabetes: >=200 mg/dL plus symp toms BUN 12 8 - 18 mg/dL [facility] LABORATORY Comment: result rechecked-red Creatinine 0.56 (L) 0.70 - 1.20 mg/dL [facility] LABORATORY Sodium 137 135 - 145 mmol/L [facility] LABORATORY Potassium 3.6 3.5 - 5.0 mmol/L [facility] LABORATORY Comment: Please note: ??Patients with WBC >100,00 0 may have falsely elevated Potassium levels. ??For accurate Potassium quantif ication in these patients send serum separator tube (gold top) for subsequent determinations. ??Contact the Clinical Chemistry Laboratory if there are any qu estions. Chloride 93 (L) 98 - 107 mmol/L [facility] LABORATORY CO2 34 (H) 22 - 31 mmol/L [facility] LABORATORY Anion Gap 10 5 - 15 mmol/L [facility] LABORATORY Calcium 9.5 8.5 - 10.5 mg/dL [facility] LABORATORY Estimated GFR 101 >=60 mL/min/1.73 m?? [facility] LABORATORY Comment: This patient? s estimated [...] Organization Address City/State/ZIP Code Phon e Number [address] (ABNORMAL) Phosphorus (08/11/2021 6:10 PM EDT) P athologist Signature Phosphorus 4.6 (H) 2.5 - 4.5 [facility] mg/dL [facility] LABORATORY Specimen Anatomical Collection Method Collection Time Receive d Time (Source) Location / / Volume Laterality Blood 08/11/2021 6:10 PM 2 6:31 EDT PM EDT Resulting Agency Comment Spec In Lab Trung Gorman MD CHEMISTRY ORDERABLES Performing Organization Address City/State/ZIP Code Phon e Number [address] Phosphorus (08/11/2021 8:24 AM EDT) P athologist Signature Phosphorus 2.6 2.5 - 4.5 [facility] mg/dL [facility] LABORATORY Specimen Anatomical Collection Method Collection Time Receive d Time (Source) Location / / Volume Laterality Blood 08/11/2021 8:24 AM 8:35 EDT AM EDT Resulting Agency Comment Spec In Lab Cheri Perdue MD CHEMISTRY ORDERABLES Performing Organization Address City/State/[place] [address] (ABNORMAL) Basic Metabolic Panel (non-fasting) (08/11/2021 8:24 AM EDT) P athologist Signature Glucose Lvl 117 65 - 199 [facility] mg/dL [facility] LABORATORY Comment: Diabetes: >=200 mg/dL plus symp toms BUN 7 (L) 8 - 18 mg/dL [facility] LABORATORY Creatinine 0.38 (L) 0.70 - 1.20 mg/dL [facility] LABORATORY Sodium 136 135 - 145 mmol/L [facility] LABORATORY Potassium 3.6 3.5 - 5.0 mmol/L [facility] LABORATORY Comment: Please note: ??Patients with WBC >100,00 0 may have falsely elevated Potassium levels. ??For accurate Potassium quantif ication in these patients send serum separator tube (gold top) for subsequent determinations. ??Contact the Clinical Chemistry Laboratory if there are any qu estions. Chloride 94 (L) 98 - 107 mmol/L [facility] LABORATORY CO2 34 (H) 22 - 31 mmol/L [facility] LABORATORY Anion Gap 8 5 - 15 mmol/L [facility] LABORATORY Calcium 9.1 8.5 - 10.5 mg/dL [facility] LABORATORY Estimated GFR 115 >=60 mL/min/1.73 m?? [facility] LABORATORY Comment: This patient? s estimated [...] Organization Address City/State/ZIP Code Phon e Number [address] (ABNORMAL) Phosphorus (08/10/2021 6:25 AM EDT) P athologist Signature Phosphorus 1.6 (L) 2.5 - 4.5 [facility] mg/dL [facility] LABORATORY Specimen Anatomical Collection Method Collection Time Receive d Time (Source) Location / / Volume Laterality Blood 08/10/2021 6:25 AM 2 7:11 EDT AM EDT Resulting Agency Comment Spec In Lab Trung Gorman MD CHEMISTRY ORDERABLES Performing Organization Address City/State/ZIP Code Phon e Number [address] (ABNORMAL) Differential, Automated (08/10/2021 6:25 AM EDT) athologist Signature Neutrophils % 56.5 % [facility] LABORATORY Neutr Abs (ANC) 3.98 1.70 - [facility] 6.10 [facility] x10(3)/[facility] LABORATORY Lymphocytes % 24.7 % [facility] LABORATORY Lymphocytes Abs 1.7 0.9 - 3.2 [facility] x10(3)/[facility] LABORATORY Monocytes % 13.1 % [facility] LABORATORY Monocyte Abs 0.9 0.3 - 0.9 [facility] x10(3)/[facility] LABORATORY Eosinophils % 3.7 % [facility] LABORATORY Eosinophils Abs 0.3 0.0 - 0.4 [facility] x10(3)/[facility] LABORATORY Basophils % 0.9 % [facility] LABORATORY Basophils Abs 0.1 0.0 - 0.1 [facility] x10(3)/[facility] LABORATORY Immature Gran % 1.10 % [facility] LABORATORY Comment: Immature granulocytes(IG's)percentage an d absolute count will include metamyelocytes, myelocytes, and promyelo cytes. Blood smears from CBCs yielding IG's will be scanned manually for concor dance. If this scan disagrees with the automated IG or if promyelocytes are not ed, a manual differential will be performed. Zenaida Gran Abs 0.08 (H) 0.00 - 0.04 x10(3)/[facility] LABORATORY Specimen Anatomical Collection Method Collection Time Receive d Time (Source) Location / / Volume Laterality Blood 08/10/2021 6:25 AM 6:34 EDT AM EDT Resulting Agency Comment Spec In Lab Mica Martinez APRN HEMATOLOGY ORDERABLES Performing Organization Address City/State/ZIP Code Phon e Number [place] [id number] HOSPITAL LABORATORY Drive (ABNORMAL) Hemogram (08/10/2021 6:25 AM EDT) [facility] gist Method Time Signature WBC 7.0 4.0 - 9.5 [facility] x10(3)/[facility] LABORATORY RBC 2.66 (L) 4.00 - [facility] 5.21 [facility] x10(6)/[facility] LABORATORY Hemoglobin 8.8 (L) 11.7 - [facility] 15.[facility] g/dL [facility] [facility]PITAL LAB[facility]ATORY Hematocrit 28.7 (L) 35.7 - [facility] % [facility] MCV 107.9 (H) 82.6 - [facility] 94.4 fL [facility] MCH 33.1 (H) 27.1 - [facility] 32.0 pg [facility] MCHC 30.7 (L) 31.7 - [facility] 35.0 g/dL [facility] LAB[facility]ORY Platelets 290 145 - 357 [facility] x10(3)/[facility] LABORATORY RDWSD 54.1 (H) 37.0 - [facility] 46.0 [facility] LABORATORY RDWCV 13.6 11.5 - [facility] 14.1 % [facility] LABORATORY MPV 10.6 7.6 - 12.9 [facility] LABORATORY nRBC % Auto 0.0 % [facility] LABORATORY nRBC Abs Auto 0.000 0.000 - [facility] 0.000 [facility] x10(3)/[facility] LABORATORY Specimen Anatomical Collection Method Collection Time Receive d Time (Source) Location / / Volume Laterality Blood 08/10/2021 6:25 AM 6:34 EDT AM EDT Resulting Agency Comment Spec In Lab Mica Martinez APRN HEMATOLOGY ORDERABLES Performing Organization Address City/State/[place] [address] (ABNORMAL) Basic Metabolic Panel (non-fasting) (08/10/2021 6:25 AM EDT) athologist Signature Glucose Lvl 117 65 - 199 [facility] mg/dL [facility] Comment: Diabetes: >=200 mg/dL plus symp toms BUN 8 8 - 18 mg/dL [facility] LABORATORY Creatinine 0.42 (L) 0.70 - 1.20 mg/dL [facility] LABORATORY Sodium 133 (L) 135 - 145 mmol/L [facility] LABORATORY Potassium 3.6 3.5 - 5.0 mmol/L [facility] LABORATORY Comment: Please note: ??Patients with WBC >100,00 0 may have falsely elevated Potassium levels. ??For accurate Potassium quantif ication in these patients send serum separator tube (gold top) for subsequent determinations. ??Contact the Clinical Chemistry Laboratory if there are any qu estions. Chloride 95 (L) 98 - 107 mmol/L [facility] LABORATORY CO2 31 22 - 31 mmol/L [facility] LABOR[facility]ORY Anion Gap 7 5 - 15 mmol/L [facility] LABORATORY Calcium 8.5 8.5 - 10.5 mg/dL [facility] LABORATORY Estimated GFR 111 >=60 mL/min/1.73 m?? [facility] LAB[facility]ORY Comment: This patient? s estimated [...] Organization Address City/State/[place] [address] Phosphorus (08/09/2021 5:13 PM EDT) athologist Signature Phosphorus 3.2 2.5 - 4.5 [facility] mg/dL [facility] Comment: result rechecked-tmp Specimen Anatomical Collection Method Collection Time Receive d Time (Source) Location / / Volume Laterality Blood 08/09/2021 5:13 PM 2 5:42 EDT PM EDT Resulting Agency Comment Spec In Lab Trung Gorman MD CHEMISTRY ORDERABLES Performing Organization Address City/State/[place] [address] XR Chest PA & [...] who have questions please contact the health child care worker that requested your imaging first. ? Electronically signed by: Angelica cronin MD, [facility] ([phone]), at 08/09/2021 1:41 PM Narrative 08/09/2021 1:41 [...] ho have questions please contact the health child care worker that requested your imaging first. Trung Gorman MD IMG DX ORDERABLES (ABNORMAL) Differential, Automated (08/09/2021 8:22 AM EDT) [facility] Method Time Signature Neutrophils % 63.8 % [facility] LABORATORY Neutr Abs (ANC) 5.27 1.70 - [facility] 6.10 [facility] x10(3)/[facility] LABORATORY Lymphocytes % 19.2 % [facility] LABORATORY Lymphocytes Abs 1.6 0.9 - 3.2 [facility] x10(3)/[facility] LABORATORY Monocytes % 13.3 % [facility] LABORATORY Monocyte Abs 1.1 (H) 0.3 - 0.9 [facility] x10(3)/[facility] LABORATORY Eosinophils % 2.5 % [facility] LABORATORY Eosinophils Abs 0.2 0.0 - 0.4 [facility] x10(3)/[facility] LABORATORY Basophils % 0.5 % [facility] LABORATORY Basophils Abs 0.0 0.0 - 0.1 [facility] x10(3)/[facility] LABORATORY Immature Gran % 0.70 % [facility] LABORATORY Comment: Immature granulocytes(IG's)percentage an d absolute count will include metamyelocytes, myelocytes, and promyelo cytes. Blood smears from CBCs yielding IG's will be scanned manually for concor dance. If this scan disagrees with the automated IG or if promyelocytes are not ed, a manual differential will be performed. Zenaida Gran Abs 0.06 (H) 0.00 - 0.04 x10(3)/[facility] LABORATORY Specimen Anatomical Collection Method Collection Time Receive d Time (Source) Location / / Volume Laterality Blood 08/09/2021 8:22 AM 8:35 EDT AM EDT Resulting Agency Comment Spec In Lab Mica Martinez APRN HEMATOLOGY ORDERABLES Performing Organization Address City/State/ZIP Code Phon e Number [place] [id number] HOSPITAL LABORATORY Drive (ABNORMAL) Hemogram (08/09/2021 8:22 AM EDT) [facility] gist Method Time Signature WBC 8.3 4.0 - 9.5 [facility] x10(3)/[facility] LABORATORY RBC 2.68 (L) 4.00 - [facility] 5.21 [facility] x10(6)/[facility] LABORATORY Hemoglobin 9.0 (L) 11.7 - [facility] 15.5 g/dL [facility] LABORATORY Hematocrit 28.7 (L) 35.7 - [facility] 45.8 % [facility] LABORATORY MCV 107.1 (H) 82.6 - [facility] 94.4 fL [facility] LABORATORY MCH 33.6 (H) 27.1 - [facility] 32.0 pg [facility] LABORATORY MCHC 31.4 (L) 31.7 - [facility] 35.0 g/dL [facility] LABORATORY Platelets 232 145 - 357 [facility] x10(3)/[facility] LABORATORY RDWSD 54.3 (H) 37.0 - [facility] 46.0 [facility] LABORATORY RDWCV 13.9 11.5 - [facility] 14.1 % [facility] LABORATORY MPV 10.4 7.6 - 12.9 [facility] LABORATORY nRBC % Auto 0.0 % [facility] LABORATORY nRBC Abs Auto 0.000 0.000 - [facility] 0.000 [facility] x10(3)/[facility] LABORATORY Specimen Anatomical Collection Method Collection Time Receive d Time (Source) Location / / Volume Laterality Blood 08/09/2021 8:22 AM 2 8:35 EDT AM EDT Resulting Agency Comment Spec In Lab Mica Martinez APRN HEMATOLOGY ORDERABLES Performing Organization Address City/State/ZIP Code Phon e Number [address] Magnesium (08/09/2021 8:22 AM EDT) athologist Signature Magnesium 0.74 0.69 - 1.07 [facility] mmol/L [facility] LABORATORY Specimen Anatomical Collection Method Collection Time Receive d Time (Source) Location / / Volume Laterality Blood 08/09/2021 8:22 AM 2 8:36 EDT AM EDT Resulting Agency Comment Spec In Lab Mica Martinez APRN CHEMISTRY ORDERABLES Performing Organization Address City/State/ZIP Code Phon e Number [address] (ABNORMAL) Basic Metabolic Panel (non-fasting) (08/09/2021 8:22 AM EDT) athologist Signature Glucose Lvl 101 65 - 199 [facility] mg/dL [facility] LAB[facility]ATORY Comment: Diabetes: >=200 mg/dL plus symp toms BUN 9 8 - 18 mg/dL [facility] LABORATORY Creatinine 0.53 (L) 0.70 - 1.20 mg/dL [facility] LABORATORY Sodium 134 (L) 135 - 145 mmol/L [facility] LABORATORY Potassium 3.9 3.5 - 5.0 mmol/L [facility] LABORATORY Comment: Please note: ??Patients with WBC >100,00 0 may have falsely elevated Potassium levels. ??For accurate Potassium quantif ication in these patients send serum separator tube (gold top) for subsequent determinations. ??Contact the Clinical Chemistry Laboratory if there are any qu estions. Chloride 99 98 - 107 mmol/L [facility] LABORATORY CO2 27 22 - 31 mmol/L [facility] LABORATORY Anion Gap 8 5 - 15 mmol/L [facility] LABORATORY Calcium 8.5 8.5 - 10.5 mg/dL [facility] LABORATORY Estimated GFR 103 >=60 mL/min/1.73 m?? [facility] LAB[facility]ORY Comment: This patient? s estimated [...] Organization Address City/State/[place] [address] (ABNORMAL) Phosphorus (08/09/2021 8:22 AM EDT) athologist Signature Phosphorus 1.6 (L) 2.5 - 4.5 [facility] mg/dL [facility] LABORATORY Specimen Anatomical Collection Method Collection Time Receive d Time (Source) Location / / Volume Laterality Blood 08/09/2021 8:22 AM 2 8:36 EDT AM EDT Resulting Agency Comment Spec In Lab Trung Gorman MD CHEMISTRY ORDERABLES Performing Organization Address City/State/ZIP Code Phon e Number [address] (ABNORMAL) Differential, Automated (08/08/2021 9:21 AM EDT) [facility] Method Time Signature Neutrophils % 71.7 % [facility] LABORATORY Neutr Abs (ANC) 7.07 (H) 1.70 - [facility] 6.10 [facility] x10(3)/[facility] LABORATORY Lymphocytes % 12.8 % [facility] LABORATORY Lymphocytes Abs 1.3 0.9 - 3.2 [facility] x10(3)/[facility] LABORATORY Monocytes % 12.7 % [facility] LABORATORY Monocyte Abs 1.2 (H) 0.3 - 0.9 [facility] x10(3)/[facility] LABORATORY Eosinophils % 1.8 % [facility] LABORATORY Eosinophils Abs 0.2 0.0 - 0.4 [facility] x10(3)/[facility] LABORATORY Basophils % 0.4 % [facility] LABORATORY Basophils Abs 0.0 0.0 - 0.1 [facility] x10(3)/[facility] LABORATORY Immature Gran % 0.60 % [facility] LABORATORY Comment: Immature granulocytes(IG's)percentage an d absolute count will include metamyelocytes, myelocytes, and promyelo cytes. Blood smears from CBCs yielding IG's will be scanned manually for concor dance. If this scan disagrees with the automated IG or if promyelocytes are not ed, a manual differential will be performed. Zenaida Gran Abs 0.06 (H) 0.00 - 0.04 x10(3)/[facility] LABORATORY Specimen Anatomical Collection Method Collection Time Receive d Time (Source) Location / / Volume Laterality Blood 08/08/2021 9:21 AM 9:43 EDT AM EDT Resulting Agency Comment Spec In Lab Radha Gallegos APRN HEMATOLOGY ORDERABLES Performing Organization Address City/[facility]/[place] [address] (ABNORMAL) Hemogram (08/08/2021 9:21 AM EDT) Patholo gist Method Time Signature WBC 9.9 (H) 4.0 - 9.5 [facility] x10(3)/[facility] LABORATORY RBC 2.68 (L) 4.00 - [facility] 5.21 [facility] x10(6)/[facility] LABORATORY Hemoglobin 9.3 (L) 11.7 - [facility] 15.5 g/dL [facility] LABORATORY Hematocrit 29.6 (L) 35.7 - [facility] 45.8 % [facility] LABORATORY MCV 110.4 (H) 82.6 - [facility] 94.4 [facility] LABORATORY MCH 34.7 (H) 27.1 - [facility] 32.0 pg [facility] LABORATORY MCHC 31.4 (L) 31.7 - [facility] 35.0 g/dL [facility] LABORATORY Platelets 209 145 - 357 [facility] LABORATORY RDWSD 57.4 (H) 37.0 - [facility] 46.0 [facility] LABORATORY RDWCV 14.1 11.5 - [facility] 14.1 % [facility] LABORATORY MPV 10.9 7.6 - 12.9 [facility] LABORATORY nRBC % Auto 0.0 % [facility] LABORATORY nRBC Abs Auto 0.000 0.000 - [facility] 0.000 [facility] x10(3)/[facility] LABORATORY Specimen Anatomical Collection Method Collection Time Receive d Time (Source) Location / / Volume Laterality Blood 08/08/2021 9:21 AM 9:43 EDT AM EDT Resulting Agency Comment Spec In Lab Radha Gallegos APRN HEMATOLOGY ORDERABLES Performing Organization Address City/State/[place] [address] (ABNORMAL) Basic Metabolic Panel (non-fasting) (08/08/2021 9:21 AM EDT) P athologist Signature Glucose Lvl 194 65 - 199 [facility] mg/dL [facility] LAB[facility]ORY Comment: Diabetes: >=200 mg/dL plus symp toms BUN 12 8 - 18 mg/dL [facility] LABORATORY Creatinine 0.67 (L) 0.70 - 1.20 mg/dL [facility] LABORATORY Sodium 131 (L) 135 - 145 mmol/L [facility] LABORATORY Potassium 4.5 3.5 - 5.0 mmol/L [facility] LABORATORY Comment: Please note: ??Patients with WBC >100,00 0 may have falsely elevated Potassium levels. ??For accurate Potassium quantif ication in these patients send serum separator tube (gold top) for subsequent determinations. ??Contact the Clinical Chemistry Laboratory if there are any qu estions. Chloride 98 98 - 107 mmol/L [facility] LABORATORY CO2 25 22 - 31 mmol/L [facility] LABORATORY Anion Gap 8 5 - 15 mmol/L [facility] LABORATORY Calcium 8.2 (L) 8.5 - 10.5 mg/dL [facility] LABORATORY Estimated GFR 96 >=60 mL/min/1.73 m?? [facility] LABORATORY Comment: This patient? s estimated [...] Organization Address City/State/[place] [address] Magnesium (08/07/2021 3:42 AM EDT) athologist Signature Magnesium 0.89 0.69 - 1.07 [facility] mmol/L [facility] LABORATORY Specimen Anatomical Collection Method Collection Time Receive d Time (Source) Location / / Volume Laterality Blood Venous Draw / 08/07/2021 3:42 AM 08/08/19 22 4:08 Unknown EDT AM EDT Resulting Agency Comment Spec In Lab Roseline Harman MD CHEMISTRY ORDERABLES Performing Organization Address City/[facility]/ZIP Code Phon e Number [address] Scan, Peripheral Blood (08/07/2021 3:42 AM EDT) [facility] Method Time Signature Plat Estimate Normal [facility] LABORATORY RBC Morphology Abnormal [facility] LABORATORY Macrocytes 1-5 /HPF [facility] LABORATORY Specimen Anatomical Collection Method Collection Time Receive d Time (Source) Location / / Volume Laterality Blood 08/07/2021 3:42 AM 2 4:04 EDT AM EDT Resulting Agency Comment Spec In Lab Ngozi Rinaldi MD HEMATOLOGY ORDERABLES Performing Organization Address City/State/ZIP Code Phon e Number [address] (ABNORMAL) Differential, Automated (08/07/2021 3:42 AM EDT) [facility] Method Time Signature Neutrophils % 78.9 % [facility] LABORATORY Neutr Abs (ANC) 6.90 (H) 1.70 - [facility] 6.10 [facility] x10(3)/[facility] L LABORATORY Lymphocytes % 7.4 % [facility] LABORATORY Lymphocytes Abs 0.6 (L) 0.9 - 3.2 [facility] x10(3)/[facility] LABORATORY Monocytes % 12.7 % [facility] LABORATORY Monocyte Abs 1.1 (H) 0.3 - 0.9 [facility] x10(3)/[facility] LABORATORY Eosinophils % 0.2 % [facility] LABORATORY Eosinophils Abs 0.0 0.0 - 0.4 [facility] x10(3)/[facility] LABORATORY Basophils % 0.5 % [facility] LABORATORY Basophils Abs 0.0 0.0 - 0.1 [facility] x10(3)/[facility] LABORATORY Immature Gran % 0.30 % [facility] LABORATORY Comment: Immature granulocytes(IG's)percentage an d absolute count will include metamyelocytes, myelocytes, and promyelo cytes. Blood smears from CBCs yielding IG's will be scanned manually for concor dance. If this scan disagrees with the automated IG or if promyelocytes are not ed, a manual differential will be performed. Zeanida Gran Abs 0.03 0.00 - 0.04 x10(3)/[facility] LABORATORY Specimen Anatomical Collection Method Collection Time Receive d Time (Source) Location / / Volume Laterality Blood 08/07/2021 3:42 AM 4:04 EDT AM EDT Resulting Agency Comment Spec In Lab Ngozi Rinaldi MD HEMATOLOGY ORDERABLES Performing Organization Address City/State/[place] [address] (ABNORMAL) Hemogram (08/07/2021 3:42 AM EDT) [facility] Method Time Signature WBC 8.8 4.0 - 9.5 [facility] x10(3)/[facility] LABORATORY RBC 3.16 (L) 4.00 - [facility] 5.21 [facility] x10(6)/[facility] LABORATORY Hemoglobin 10.6 (L) 11.7 - [facility] 15.5 g/dL [facility] LABORATORY Hematocrit 33.5 (L) 35.7 - [facility] 45.8 % [facility] LABORATORY MCV 106.0 (H) 82.6 - [facility] 94.4 fL [facility] LABORATORY MCH 33.5 (H) 27.1 - [facility] 32.0 pg [facility] LABORATORY MCHC 31.6 (L) 31.7 - [facility] 35.0 g/dL [facility] LABORATORY Platelets 199 145 - 357 [facility] x10(3)/[facility] LABORATORY RDWSD 54.6 (H) 37.0 - [facility] 46.0 [facility] LABORATORY RDWCV 13.7 11.5 - [facility] 14.1 % [facility] LABORATORY MPV 10.8 7.6 - 12.9 [facility] LABORATORY nRBC % Auto 0.0 % [facility] LABORATORY nRBC Abs Auto 0.000 0.000 - [facility] 0.000 [facility] x10(3)/[facility] LABORATORY Specimen Anatomical Collection Method Collection Time Receive d Time (Source) Location / / Volume Laterality Blood 08/07/2021 3:42 AM 4:04 EDT AM EDT Resulting Agency Comment Spec In Lab Ngozi Rinaldi MD HEMATOLOGY ORDERABLES Performing Organization Address City/State/[place] [address] (ABNORMAL) Basic Metabolic Panel (non-fasting) (08/07/2021 3:42 AM EDT) P athologist Signature Glucose Lvl 136 65 - 199 [facility] mg/dL [facility] LABORATORY Comment: Diabetes: >=200 mg/dL plus symp toms BUN 12 8 - 18 mg/dL [facility] LABORATORY Creatinine 0.56 (L) 0.70 - 1.20 mg/dL [facility] LABORATORY Sodium 137 135 - 145 mmol/L [facility] LABORATORY Potassium 4.1 3.5 - 5.0 mmol/L [facility] LABORATORY Comment: Please note: ??Patients with WBC >100,00 0 may have falsely elevated Potassium levels. ??For accurate Potassium quantif ication in these patients send serum separator tube (gold top) for subsequent determinations. ??Contact the Clinical Chemistry Laboratory if there are any qu estions. Chloride 100 98 - 107 mmol/L [facility] LABORATORY CO2 24 22 - 31 mmol/L [facility] LABORATORY Anion Gap 13 5 - 15 mmol/L [facility] LABORATORY Calcium 7.8 (L) 8.5 - 10.5 mg/dL [facility] LABORATORY Estimated GFR 101 >=60 mL/min/1.73 m?? [facility] LABORATORY Comment: This patient? s estimated [...] Resulting Agency Comment Spec In Lab Trung Gomran MD CHEMISTRY ORDERABLES Performing Organization Address City/State/[place] [address] XR Pelvis (Generic) (08/06/2021 [...] who have questions please contact the health child care worker that requested your imaging first. ? Electronically signed by: Alejandro romeo MD, [facility] ([phone]), at 08/06/2021 11:51 AM Narrative 08/06/2021 11:51 [...] ho have questions please contact the health child care worker that requested your imaging first. Electronically signed by: [facility] rome[facility] MD[facility] ([phone]), at 08/06/2021 11:51 AM Trung Gorman MD IMG DX ORDERABLES Surgical Pathology Report (08/06/2021 9:41 AM EDT) Component Value Ref Test Analysis Performed At [facility] Method Time Signature Surgical [id number] ? Location: 3WST; 0309; [facility] Report The signing pathologist has (i) examined the relevant preparation(s) for the [facility]IAL specimen(s) and (ii) rendered or confirmed the diagnosis(es) . HOSPITAL LABORATORY . ?Surgic al Pathology DIAGNOSIS A - Right femoral head, resection: ?Consistent with a history of fracture; no evidence of neoplasia. Electronically signed by: ?Jesus CASTILLO, Alejandro Dash Verified: ??08/11/2021 11:28 ??Pathologist Performed at: ??[place], [place], [place] SPECIMEN(S) SUBMITTED A - Right femoral [...] Blocks submitted for decalcification: A1 through A4. [employer] sections in 4 cassettes as follows: ?A1: ??[employer] femoral head towards femoral neck at fracture site ?A2: ??[employer] a dditional femoral head area of hemorrhagic necrosis ?A3: ??[employer] fragment of femoral n deisy with hemorrhagic necrosis ?A4: ??[employer] femoral head with fovea capitis ??lv Specimen (Source) Anatomical Collection Method Collection Time Re ceived Time Location / / Volume Laterality 08/06/2021 9:41 AM EDT Dusty Peterson MD PATHOLOGY/CYTOLOGY ORDERABLE S Performing Organization Address City/State/[place] [address] Specimen to Pathology (08/06/2021 9:41 AM EDT) Specimen Anatomical Collection Method Collection Time Receive d Time (Source) Location / / Volume Laterality AP Specimen 08/06/2021 9:41 AM 9:41 EDT AM EDT Narrative [facility] LABORAT ORY - 08/06/2021 9:41 AM EDT Specimen requisition ordered. ??Separate Pathology report to follow Trung Gorman MD PATHOLOGY/CYTOLOGY ORDERABLE S Performing Organization Address City/[facility]/[place] [address] Type and Screen Validity (08/06/2021 3:54 AM EDT) [facility] Method Time Signature T&S only valid [facility] at [facility] LAB[facility]ORY Comment: This Type and Screen result is only valid at the [facility] Specimen Anatomical Collection Method Collection Time Receive d Time (Source) Location / / Volume Laterality Blood 08/06/2021 3:54 AM 2 4:03 EDT AM EDT Resulting Agency Comment Spec In Lab Anne Marie Costello MD BLOOD BANK ORDERABLES Performing Organization Address City/[facility]/ZIP Code Phon e Number [address] ABORH Recheck Status (08/06/2021 3:54 AM EDT) [facility] Method Time Signature ABORH Type Completed [facility] [facility] LABORATORY Specimen Anatomical Collection Method Collection Time Receive d Time (Source) Location / / Volume Laterality Blood 08/06/2021 3:54 AM 2 4:03 EDT AM EDT Resulting Agency Comment Spec In Lab Anne Marie Costello MD BLOOD BANK ORDERABLES Performing Organization Address City/[facility]/[place] [address] (ABNORMAL) Magnesium (08/06/2021 3:54 AM EDT) P athologist Signature Magnesium 0.60 (L) 0.69 - 1.07 [facility] mmol/L [facility] LABORATORY Specimen Anatomical Collection Method Collection Time Receive d Time (Source) Location / / Volume Laterality Blood 08/06/2021 3:54 AM 2 4:11 EDT AM EDT Resulting Agency Comment Spec In Lab Trung Gorman MD CHEMISTRY ORDERABLES Performing Organization Address City/[facility]/ZIP Code [place] [address] [facility] [address] Phosphorus (08/06/2021 3:54 AM EDT) P athologist Signature Phosphorus 2.8 2.5 - 4.5 [facility] LABORATORY Specimen Anatomical Collection Method Collection Time Receive d Time (Source) Location / / Volume Laterality Blood 08/06/2021 3:54 AM 4:11 EDT AM EDT Resulting Agency Comment Spec In Lab Trung Gorman MD CHEMISTRY ORDERABLES Performing Organization Address City/State/ZIP Code Phon e Number [place] [phone] [facility] LAB[address]ATORY Drive (ABNORMAL) Differential, Automated (08/06/2021 3:54 AM EDT) Patholo gist Method Time Signature Neutrophils % 73.5 % [facility] LABORATORY Neutr Abs (ANC) 6.13 (H) 1.70 - [facility] 6.10 [facility] x10(3)/[facility] LABORATORY Lymphocytes % 11.3 % [facility] LABORATORY Lymphocytes Abs 0.9 0.9 - 3.2 [facility] x10(3)/[facility] LABORATORY Monocytes % 13.5 % [facility] LABORATORY Monocyte Abs 1.1 (H) 0.3 - 0.9 [facility] x10(3)/[facility] LABORATORY Eosinophils % 0.5 % [facility] LABORATORY Eosinophils Abs 0.0 0.0 - 0.4 [facility] x10(3)/[facility] LABORATORY Basophils % 0.7 % [facility] LABORATORY Basophils Abs 0.1 0.0 - 0.1 [facility] x10(3)/[facility] LABORATORY Immature Gran % 0.50 % [facility] LABORATORY Comment: Immature granulocytes(IG's)percentage an d absolute count will include metamyelocytes, myelocytes, and promyelo cytes. Blood smears from CBCs yielding IG's will be scanned manually for concor dance. If this scan disagrees with the automated IG or if promyelocytes are not ed, a manual differential will be performed. Zenaida Gran Abs 0.04 0.00 - 0.04 x10(3)/[facility] LABORATORY Specimen Anatomical Collection Method Collection Time Receive d Time (Source) Location / / Volume Laterality Blood 08/06/2021 3:54 AM 2 4:11 EDT AM EDT Resulting Agency Comment Spec In Lab Anne Marie Costello MD HEMATOLOGY ORDERABLES Performing Organization Address City/State/[place] [address] (ABNORMAL) Hemogram (08/06/2021 3:54 AM EDT) [facility] gist Method Time Signature WBC 8.3 4.0 - 9.5 [facility] x10(3)/[facility] LABORATORY RBC 3.66 (L) 4.00 - [facility] 5.21 [facility] x10(6)/[facility] LABORATORY Hemoglobin 12.4 11.7 - [facility] 15.[facility] g/dL [facility] LABORATORY Hematocrit 37.7 35.7 - [facility] 45.8 % [facility] LABORATORY MCV 103.0 (H) 82.6 - [facility] 94.4 [facility] LABORATORY MCH 33.9 (H) 27.1 - [facility] 32.0 pg [facility] LABORATORY MCHC 32.9 31.7 - [facility] 35.0 g/dL [facility] LABORATORY Platelets 187 145 - 357 [facility] x10(3)/[facility] LABORATORY RDWSD 52.8 (H) 37.0 - [facility] 46.0 [facility] LABORATORY RDWCV 13.8 11.5 - [facility] 14.1 % [facility] LABORATORY MPV 10.3 7.6 - 12.9 [facility] LABORATORY nRBC % Auto 0.0 % [facility] LABORATORY nRBC Abs Auto 0.000 0.000 - [facility] 0.000 [facility] x10(3)/[facility] LABORATORY Specimen Anatomical Collection Method Collection Time Receive d Time (Source) Location / / Volume Laterality Blood 08/06/2021 3:54 AM 2 4:11 EDT AM EDT Resulting Agency Comment Spec In Lab Anne Marie Costello MD HEMATOLOGY ORDERABLES Performing Organization Address City/State/[place] [address] (ABNORMAL) Basic Metabolic Panel (non-fasting) (08/06/2021 3:54 AM EDT) P athologist Signature Glucose Lvl 90 65 - 199 [facility] mg/dL [facility] LABORATORY Comment: Diabetes: >=200 mg/dL plus symp toms BUN 21 (H) 8 - 18 mg/dL [facility] LABORATORY Creatinine 0.58 (L) 0.70 - 1.20 mg/dL [facility] LABORATORY Sodium 137 135 - 145 mmol/L [facility] LABORATORY Potassium 3.4 (L) 3.5 - 5.0 mmol/L [facility] LABORATORY Comment: Please note: ??Patients with WBC >100,00 0 may have falsely elevated Potassium levels. ??For accurate Potassium quantif ication in these patients send serum separator tube (gold top) for subsequent determinations. ??Contact the Clinical Chemistry Laboratory if there are any qu estions. Chloride 97 (L) 98 - 107 mmol/L [facility] LABORATORY CO2 28 22 - 31 mmol/L [facility] LABORATORY Anion Gap 12 5 - 15 mmol/L [facility] LABORATORY Calcium 8.5 8.5 - 10.5 mg/dL [facility] LABORATORY Estimated GFR 100 >=60 mL/min/1.73 m?? [facility] LABORATORY Comment: This patient? s estimated [...] Gorman MD CHEMISTRY ORDERABLES Performing Organization Address City/[facility]/[place] [address] Antibody screen (08/06/2021 3:54 AM EDT) Patholo gist Method Time Signature Ab Screen Negative [facility] LABORATORY Expires at 08/09/2021 [facility] 0507 on: [facility] LABORATORY Specimen Anatomical Collection Method Collection Time Receive d Time (Source) Location / / Volume Laterality Blood 08/06/2021 3:54 AM 2 4:03 EDT AM EDT Resulting Agency Comment Spec In Lab Anne Marie Costello MD BLOOD BANK ORDERABLES Performing Organization Address City/[facility]/[place] [address] ABO/Rh Typing (08/06/2021 3:54 AM EDT) P athologist Signature ABORh Type O Pos [facility] LABORATORY Specimen Anatomical Collection Method Collection Time Receive d Time (Source) Location / / Volume Laterality Blood 08/06/2021 3:54 AM 2 4:03 EDT AM EDT Resulting Agency Comment Spec In Lab Anne Marie Costello MD BLOOD BANK ORDERABLES Performing Organization Address City/[facility]/[place] [address] APTT (08/06/2021 3:54 AM EDT) P athologist Signature PTT 26 25 - 37 sec [facility] LABORATORY Comment: The PTT is NOT [...] Gorman MD HEMATOLOGY ORDERABLES Performing Organization Address [facility] [place] [address] Prothrombin Time (08/06/2021 3:54 AM EDT) P athologist Signature PT 10.2 9.4 - 12.5 [facility] LABORATORY INR 0.9 [facility] LABORATORY Comment: An INR <2.0 indicates [...] Gorman MD HEMATOLOGY ORDERABLES Performing Organization Address City/[facility] [place] [address] COVID-19 PCR (08/06/2021 3:00 AM EDT) Patholo gist Method Time Signature SARS-CoV-2 Not Detected Not Detected [facility]A RNA PCR [facility] LABORATORY Comment: This result should [...] using the Simplexa COVID-19 Direct Assay by Pulse[employer] as authorized by the FDA issued Emergency Use Authorization (EUA). This assay is intended for In-vitro Diagnostic (IVD) use with nasopharyngeal swabs collected from individuals meeting the CDC criteria for testing. e assay is performed based on the instructions for use and additional guid cy provided by the FDA. Testing is performed in the Microbiology Laboratory within the Department of Pathology and Laboratory Medicine at [facility], certified under the Clinical Laboratory Improvement [...] clinical management guidance information are available at [facility] CDC Coronavirus Disease 2019 (COVID-19) webpage under Information fo r Healthcare Professionals (https://www.cdc.gov/coronavirus/2019-nc ov/hcp/index.html). Additional information about this and ot her EUA tests can be found in provider and patient fact sheets at the following FDA website: https://www.fda.gov/medical-devices/sjdicpqmlzc-oyjydma-0172-wnety-44-dwactsuwg- qeh-kzkwwgjgciblza-tpfajzh-devices/rcjjw-coykupjytem-qbhx SARS-CoV-2 Source [employer] Swab [facility] LABORATORY Specimen (Source) Anatomical Collection Method Collection Time Re ceived Time Location / / Volume Laterality Nasopharyngeal Swab 08/06/2021 3:00 08/06 AM EDT 3:19 AM EDT Comment: Symptoms->Surveillance Resulting Agency Comment Spec In Lab Trung Gorman MD MICROBIOLOGY - GENERAL ORDER JAXSON Performing Organization Address City/State/ZIP Code Phon e Number PAMELA [place] [phone]OS[address]ITAL LAB[address]ATORY Drive SCAN DOC: IMPLANTABLE DEVICES (08/06/2021 12:00 AM EDT) Narrative This result has an attachment that is no t available. Unknown MEDIA MGR SCAN EXT ORDR/RSLT documented in this encounter Visit Diagnoses Not on filedocumented in this encounter Admitting Diagnoses Diagnosis Hip fracture Closed fracture of unspecified part of n deisy of femur documented in this encounter Administered Medications Inactive Administered Medications - up to 3 most recent administrations Medication Order MAR Action Action Date Dose Rate Site acetaminophen (Tylenol) tablet Given 08/14/2021 11:56 AM EDT 1,0 00 mg 1,000 mg 1,000 mg, Oral, EVERY 6 [...] Given 08/13/2021 11:34 PM EDT 1,000 mg bisacodyL (Dulcolax) suppository 10 mg 10 [...] Given 08/13/2021 12:52 PM EDT 2 Inhalation BUpivacaine (pf) (Marcaine) Given 08/06/2021 10:31 AM 50 mLs 19- Surgical Site (2.5 mg/mL) 0.25% injection EDT ONCE PRN, Starting on Sat08/06/21 at 1031, Until Sat08/14/21 at 1615, Intra-Operative (Intra-Procedure), Routine busPIRone (Buspar) tablet 5 mg Given [...] Given 08/12/2021 4:45 PM EDT 500 mg cholecalciferol (Vitamin D3) (Vitamin Given 08/14/2021 8:42 AM E DT 1,000 Units D3) tablet 1,000 Units 1,000 Units, Oral, DAILY, First dose on Sat08/09/21 at 0900, Until Discontinued, 40 units is equivalent to 1 mcg of cholecalciferol., Routine Given 08/12/2021 8:08 AM EDT 1,000 Units Given 08/11/2021 8:10 AM EDT 1,000 Units cloNIDine (pf) (Duraclon) (100 Given 08/06/2021 10:32 AM 100 mcg 19- Surgical Site mcg/mL) Epidural injection EDT ONCE PRN, Starting on Sat08/06/21 at 1032, Until Sat08/14/21 at 1615, Intra-Operative (Intra-Procedure), Routine DULoxetine DR (Cymbalta) capsule 60 mg Given 08/14/2021 8:41 AM EDT 60 mg 60 mg, Oral, DAILY, First dose on Sat08/07/21 at 0900, Until Discontinued, Routine Given 08/13/2021 12:54 PM EDT 60 mg Given 08/12/2021 8:07 AM EDT 60 mg enoxaparin (Lovenox) (30 mg/0.3 mL) Given 08/13/2021 [...] Given 08/12/2021 8:08 AM EDT 1,000 mcg gabapentin (Neurontin) capsule 300 mg Given 08/14/2021 1:24 PM EDT 300 mg 300 mg, Oral, 3 TIMES DAILY, First dose on Sat08/07/21 at 0900, Until Discontinued, Routine Given 08/14/2021 8:41 AM EDT 300 mg Given 08/13/2021 11:34 PM EDT 300 mg HYDROmorphone (Dilaudid) tablet 1-2 mg Given 08/13/2021 6:34 AM EDT 2 mg 1-2 mg, Oral, EVERY 4 HOURS PRN, Starting on Sat08/08/21 at 1648, Until Sat08/14/21 at 1615, Pain, Mild to moderate pain (1-5) take 1 mg, moderate to severe pain (6-10) take 2 mg, Routine Given 08/12/2021 11:42 PM EDT 2 mg Given 08/12/2021 2:17 PM EDT 2 mg ipratropium-albuteroL (Duoneb) 0.5 mg-3 Given 08/14/2021 11:56 A M EDT 3 mLs mg(2.5 mg base)/3 mL nebulizer solution 3 mL 3 mL, Nebulization, EVERY 6 HOURS SCHEDULED, First dose (after last modification) on Sat08/08/21 at 0800, Until Discontinued, Routine Given 08/14/2021 5:41 AM EDT 3 mLs Given 08/13/2021 11:34 PM EDT 3 mLs ketorolac (Toradol) (30 mg/mL) Given 08/06/2021 10:31 AM 30 mg 19- Surgical Site injection EDT ONCE PRN, Starting on Sat08/06/21 at 1031, Until Sat08/14/21 at 1615, Intra-Operative (Intra-Procedure), Routine lidocaine (Lidoderm) Patch Applied 08/11/2021 3:13 AM [...] for discomfort with PIV ins ertion, Routine metoprolol tartrate (Lopressor) tablet 2 5 mg [...] Intravenous, EVERY 8 HOURS PRN, Starting on Sat08/06/21 at 0127, Until Sat08/14/21 at 1615, Nausea, If multiple antiemetics are ordered, use ondansetron first, prochlorperazine second, metoclopramide third. Given 08/06/2021 2:48 AM EDT 4 mg polyethylene glycoL (Miralax) packet 17 g Given 08/10/2021 8:32 PM EDT 17 g 17 g, Oral, 2 TIMES DAILY, First dose on Sat08/06/21 at 0230, Until Discontinued, Routine Given 08/07/2021 8:08 PM EDT 17 g Given 08/07/2021 9:13 AM EDT 17 g predniSONE (Deltasone) tablet 10 mg Given 08/14/2021 [...] sodium chloride 0.9 % (flush) (BD PosiFl ush Normal Saline 0.9) flush 5-20 mL 5-20 mL, Intravenous, EVERY 1 MIN PRN, S tarting on Sat08/06/21 at 0127, Until Sat08/14/21 at 1615, flush, Flush pertains t o all indwelling lines. Flush per protocol found in the job aid using the link prov ided on this medication record., Routine thiamine (B-1) 250 mg in sodium [...] Chloride and infused over 30 minutes . traZODone (Desyrel) tablet 50-100 mg Given 08/12/2021 [...] budesonide-formoteroL (Symbicort) 80-4.5 mcg/actuation inhaler 2 Inhalation 0807 (Given - Provider: Alana Nicholson RN)2034 (Given - Provider: Tracy Bynum RN) 0851 (Not Given - Provider: Diana Cordw ell, RN - Reason: Patient Unable - Comment: [...] AM) 0841 (Given - Provider: Pamela Barney RN) 60 mg, Oral, DAILY, First dose [...] Alana Nicholson RN) 0840 (Given - Provider: Pamela Barney RN - [...] rst dose on 08/06/21 at 0330, Until Discontinued, Apply patch(es) for [...] First dose on 08/06/21 at 1445, Until Discontinued, Remove lidocaine 5% patch metoprolol tartrate (Lopressor) tablet 25 mg 0808 (Giv en - Provider: Alana Nicholson RN)2033 (Given - [...] Routine polyethylene glycoL (Miralax) packet 17 g 0900 (Not Gi merritt - Provider: Alana Nicholson RN - Reason: Patient/family refused)2100 (Not Given - Provider: Tracy Bynum RN - Reason: Patient/family refused) 0851 (Not Given - Provider: Pamela Barney RN - Reason: Patient Unable - Comment: Patient too drowsy to take PO meds)2100 (Not Given - Provider: Tracy Bynum RN - Reason: Patient/family refused) 0900 (Not [...] 8.6-50 mg per tablet 2 tab let 09 (Not Given - Provider: Alana Nicholson RN [...] Nicholson RN) 1615 (Given - Provider: Pamela Barney, RN) 20 mg, Oral, EVERY EVENING, First dose o n 08/06/21 at 1700, Until Discontinued, Routine sirolimus (Rapamune) tablet 2 mg 0807 (Given - Provider: José Miguel Nicholson RN) 0839 (Not Given - Provider: Pamela Barney, VIOLA - Reason: Patient Unable - Comment: Patient too drowsy to take PO meds) 0841 (Given - Provider: Pamela Barney, VIOLA) 2 mg, Oral, DAILY, First dose on 07/19 at 0900, Until Discontinued, DO NOT CRUSH OR OPEN, Routine sodium chloride 0.9 % (flush) (BD PosiFlush Normal Lucio ine 0.9) flush 5 mL 0808 (Given - Provider: Alana Nicholson RN)2037 (Given - Provider: Tracy Bynum, VIOLA) 0839 (Given - Provider: Pamela Barney RN - Comment: Patient too drowsy to take PO meds)2021 (Given - Provider: Tracy Bynum, VIOLA) 0842 (Given - Provider: Pamela Barney, VIOLA) 5 mL, Intravenous, 2 TIMES DAILY, First dose on Sat08/06/21 at 0230, Until Discontinued, Routine thiamine (B-1) 250 mg in sodium chloride 0.9% 52.5 mL 250 mg, Intravenous, DAILY, 3 doses, Fir st dose on Sat08/15/21 at 0900, Last dose on Sat08/17/21 at 0900, Administer over 30 Minutes, Doses [...] Barney RN)2022 (New Bag - Provider: Tracy Bynum, VIOLA) 0842 (New Bag - Provider: Pamela dash RN)0912 (Stopped - Provider: Pamela Barney RN) 500 mg, Intravenous, 3 TIMES DAILY, 6 do ses, First dose on Sat08/12/21 at 1500, Last dose on Sat08/14/21 at 0900, Administer over 30 Minutes, Doses of 100 mg are to be administered as IV push over 5 min 2052 (Sto pped - Provider: Tracy Bynum, VIOLA) utes. Doses of 200 mg or more should be mixed in 50 mL 0.9% Sodium Chloride and infused over 30 minutes. thiamine (Vitamin B1) tablet 100 mg (CANCELED) 807 (G iven - Provider: Alana Nicholson RN) 100 mg, Oral, DAILY, First dose on Sat at 0900, Until Discontinued, Routine PRN Medication Order 08/12/2021 08/13/2021 08/14/2021 bisacodyL (Dulcolax) suppository 10 mg 10 mg, Rectal, DAILY PRN, Starting on Amaral n 08/06/21 at 0127, Until 08/14/21 at 1615, Constipation, Administer if needed per [...] PRN, Starting on 08/06/21 at 0127, Until 08/14/21 at 1615, Constipation, DO NOT CRUSH OR [...] EVERY 4 HOURS PRN, Startin g on Sat08/08/21 at 1648, Until Sat08/14/21 at 1615, Pain, Mild to moderate pain (1-5) take 1 mg, moderate to severe pain (6-10) take 2 mg, Routine lidocaine (Xylocaine) 1% (10 mg/mL) injection 3 mg 3 mg (0.3 mL), Subcutaneous, ONCE PRN, 1 dose, Starting on Sat08/06/21 at 0127, Until Sat08/14/21 at 1615, for discomfort with PIV insertion, Routine LORazepam (Ativan) tablet 0.5-1.5 mg (CANCELED) 0808 ( Given - Provider: Alana Nicholson RN)1219 (Given - Provider: Alana Nicholson RN)1645 (Given - Provider: Alana Nicholson RN)2034 (Given - Provider: Tracy Bynum RN) 0045 (Given - Provider: Tracy Bynum RN)0449 (Given - Provider: Tracy Bynum RN)1615 (Given - Provider: Pamela Barney RN [...] EVERY 8 HOURS PRN, St arting on Sat08/06/21 at 0127, Until Sat08/14/21 at 1615, Nausea, [...] Osmel Flowers RN)2033 (Given - Provider: Tracy Bynum RN)2341 (Given - Provider: Tracy Bynum RN) 50-100 mg, Oral, NIGHTLY PRN, Starting o n Sat08/11/21 at 1858, Until Sat08/14/21 at 1615, Sleep, Give 50 mg prn insomnia. Can give additional 50 mg if first ineffective., Routine Linked Groups Order Group 1: lidocaine (Lidoderm) 5% patch 3 patchJump to med 3 patch, Transdermal, EVERY 24 HOURS, Fi rst dose on Sat08/06/21 at 0330, Until Discontinued
Apply patch(es) for 12 hours, and then remove for 12 hours.
Routine And lidocaine (Lidoderm) topical patch REMOVALJump to med Transdermal, EVERY 24 HOURS, First dose on 08/06/21 at 1445, Until Discontinued
Remove lidocaine 5% patch
documented in this encounter Care Teams Welfare Specialist Relationship Specialty Start Date End Date Magdalene Lin PA PCP - General 09/05/[address] [place] [address] documented as of this encounter
--- OUTSIDE RECORDS SUMMARY | 2022-02-10 06:09 | XMS_ITS | Encounter Summary ---
:1960 [place] [address] Care Team Providers Name Role Phone Magdalene Lin Primary Care Provider [phone] Reason for Visit Auth/Cert Specialty Diagnoses / Procedures Referred By Contact Refer red To Contact Diagnoses Hypotension GI BLEED Procedures EMERGENCY IPI Referral ID Status Reason Start Date Expiration Date Visits Requ ested Visits Authorized [id number] 1 1 Encounter Details Date Type Department Care Team Description 11/18/2018 - Hospital Encounter Medical Intensive Tessa Matson MD [facility] [place] [address] 11/20/2018 Care Unit - [place] [address] [place] [id number] Social History Tobacco Use Types Packs/Day Years Used Date Never Smoker Smokeless Tobacco: Never Used Alcohol Use Standard Drinks/Week Comments Yes 1 (1 standard drink = 0.6 oz pure alcoho l) Sex Assigned at Date Recorded Not on file documented as of this encounter Last Filed Vital Signs Vital Sign Reading Time Taken Comments Blood Pressure 93/83 11/20/2018 12:07 PM EDT Pulse 94 11/19/2018 3:07 PM EDT Temperature 37.1 ??C (98.8 ??F) 11/20/2018 12:00 PM EDT Respiratory Rate 18 11/19/2018 3:20 PM EDT Oxygen Saturation 99% 11/20/2018 12:00 PM EDT Inhaled Oxygen Concentration - - Weight - - Height 160 cm (5' 3) 11/18/2018 8:35 PM EDT Body Mass Index - - documented in this encounter Discharge Summaries Michael Werner MD - 11/20/2018 11:19 AM EDT Discharge Summary Patient Name: Paradise Abel Patient Age: 58 y.o. Language: Malian Race: White Ethnicity: Unknown or Unavailable Admit date: 11/18/2018 Discharge date and time: 11/20/18 Attending Physician: Michael Werner MD Discharge Physician: MD Alphonso Follow-up Recommendations for Providers: -Please check CBC and follow-up to ensure resolving hemoglobin. Hemoglobin 8.2 at discharge. -Please obtain stool H. Pylori Ag to evaluate for H. Pylori disease as cause for ulcer (no BM after procedure) -Patient was discharged on pantoprazole 20 mg twice daily for 3 months -Patient's Lasix (with potassium) and metoprolol were held on discharge for 48 hours. Patient was instructed to restart after 48 hours if eating and drinking well without any signs of recurrent bleeding. Inpatient Provider Contact Information: For questions regarding this document or issues relating to this hospitalization on the Medical Service, please contact your inpatient physician through the [facility] . Issues after hours and on weekends will be handled by the Hospitalist staff on-call. Discharge Diagnoses (Hospital Problems) and Secondary Diagnoses (Chronic Problems): Active Hospital Problems Diagnosis ??? Acute blood loss anemia ??? Chronic respiratory failure with hypoxia ??? Hypotension Resolved Hospital Problems Diagnosis Date Resolved ??? Acute upper GI bleed 11/20/2018 Active Non-Hospital Problems Diagnosis ??? Chest pain Operations/Major Procedures: Operations: Procedure(s): EGD, UPPER GI ENDOSCOPY 11/19/2018 Other Major Procedures: History of Presentation: Patient was initially transferred to [facility] critical care service from [facility] ED for hypotension (60-70's/30's) in setting of newly found hemoglobin of 5. Other notable labs include +FOBT, normal LFT's, BUN of 18 and normal PTT and PT/INR. She would be given 2 units of pRBC's prior to transfer. Upon arrival, patient was hemodynamically stable with hemoglobin of 8. Patient would be monitoredovernight without any notable events. ?? Per patient, she had started on amoxicillin last Saturday for tooth abscess. The following day, shebegan to experience belly ache that she attributed to a stomach bug. On Saturday, patient began to have multiple episodes of diarrhea (loose, soupy, dark brown, non-sticky, non-bloody). Each episode was preceded by generalized abdominal discomfort that resolved after bowel movement. She would stopped taking the abx on Saturday and started feeling better by Saturday. She believes that she has taken Amoxicillin in the past without notable complications, although she thinks the dose was higher this time (2g daily). She notes some mild yellowing of the skin during over this time period, although she feels it has subsequently resolved. She denies any increase in fatigue, SOB, or dyspnea w exertion above baseline over this time period. ?? There have been no recent changes to patient's prescribed medical regiment. She does not take steroids or anticoagulants and is on a stable dose of sirolimus. She does, however, report a history of daily Ibuprofen use for back aches in the past but quit several months ago because she was told it wouldincrease her risk of bleeding. She subsequently switched to using naproxen intermittently over the past several weeks for same back aches and headaches. The frequency and dosing of which was escalatingwhen diarrhea started last week (4 pills daily). ? No history of GERD, notes 9 pound weight loss over past 6 months EGD. [place] and scheduled follow up in 10 Hospital Course: # Severe hypovolemia 2/2 acute upper GI bleeding due to gastric ulcers #Acute blood loss anemia -The patient was resuscitated with IV fluids and packed our RBCs. Her hemodynamics were monitored closely in the ICU. She did not require pressors. She was started on IV Protonix 40 mg twice daily. Thepatient was seen in consultation with Gastroenterology. An EGD was performed which showed 6 nonbleeding gastric ulcers with clean ulcer base, presumably due to NSAID use. The patient's hemoglobin levels were monitored closely and remained stable in the 8-8.2 range. She did not have any further evidence of active melena or hematochezia while hospitalized. She tolerated an oral diet well. She denied any chest pain or shortness of breath. Her oxygenation remained stable on her home oxygen requirement of 2 to 3 L. She will be discharged on pantoprazole 20 mg twice daily for 3 months as recommended by gastroenterology. She was informed to avoid all NSAIDs. Stool H. pylori antigen was not able to be obtained as she did not have a bowel movement following procedure. #Chronic respiratory failure with hypoxia 2/2 FOLEY -Patient was continued on her home oxygen of 2 to 3 L. She was continued on sirolimus. She was continued on her nebulizer as needed. She will start her new medication that was prescribed to her by her physician when she returns home (alternative to Spiriva and symbicort but she could not remember name Vital Signs at Discharge: BP: 113/67, Heart Rate: 94, Temp: 37.2 ??C (99 ??F), Resp: 18, Height: 160 cm (5' 3) (11/18/182034) Functional and Cognitive Status: stable Important Studies and Lab Data: Labs: Recent Labs 11/20/18 0855 11/19/18 0711/19/18144 WBC 4.8 6.1 6.6 HGB 8.2* 8.0* 7.7* HCT 25.8* 24.4* 24.1* PLATELET 348 299 273 Recent Labs 11/20/18 03411/19/1814411/18/18 2030 NA 141 138 137 K 3.2* 4.0 4.5 CL 101 101 100 CO2 24 24 24 BUN 10 12 13 CREATININE 0.73 0.79 0.89 Recent Labs 11/20/18 03411/19/1814411/18/18 2030 AST 21 21 Not Perf ALT 13 10 11 ALKPHOS 57 53 60 BILITOT 0.2 0.2 0.4 BILIDIR 0.1 <0.1 0.1 Recent Labs 11/20/1834411/19/18 0145 11/18/18 2030 CALCIUM 8.6 8.5 8.4* PHOS -- -- 3.8 Recent Labs 11/19/18 014 PT 10.0 INR 0.9 PTT 21* No results for input(s): CK, TROPONINT in the last 168 hours. Studies: EGD 11/19 Impression: ?- Non-bleeding gastric ulcers with a ?clean ulcer base (Roland Class III). ?This is likely in the setting of ?heavy NSAID use. ?- No specimens collected. Discharge Conditions/Prognosis: Stable for d/c Discharge to: Home w/ oxygen Updated Allergies/ADRs: Allergies Allergen Reactions ??? Hymenoptera Allergenic Extract Anaphylaxis Immunizations Given this Hospitalization: There is no immunization history on file for this patient. Discharge Medications: Your Medications New Medications Dose Details pantoprazole 20 mg Tbec Commonly known as: PROTONIX Take 1 tablet by mouth 2 times daily. 20 mg Quantity: 60 tablet Refills: 2 Continued medications with new dosing Dose Details CIS FREE TEXT MED 1 Puff(s), Inh, Q4-6H,PRN What changed: Another medication with the same name was removed. Continue taking this medication, and follow the directions you see here. Refills: 0 furosemide 40 mg Tab Commonly known as: LASIX Take 1 tablet by mouth daily. Start taking on: 11/22/2018 What changed: These instructions start on 11/22/2018. If you are unsure what to do until then, ask your doctor or other care provider. 40 mg Refills: 0 metoprolol tartrate 25 mg Tab Commonly known as: LOPRESSOR Take 1 tablet by mouth 2 times daily. Start taking on: 11/22/2018 What changed: These instructions start on 11/22/2018. If you are unsure what to do until then, ask your doctor or other care provider. 25 mg Quantity: 180 tablet Refills: 0 multivitamin Tab Commonly known as: THERAGRAN Take 1 tablet by mouth daily. What changed: See the new instructions. 1 tablet Quantity: 30 tablet Refills: 12 Continued medications, unchanged Dose Details sertraline 100 mg Tab Commonly known as: ZOLOFT Take 100 mg by mouth daily. 100 mg Refills: 0 simvastatin 20 mg Tab Commonly known as: ZOCOR Take 20 mg by mouth daily. 20 mg Refills: 1 Sirolimus 2 mg Tab Take 2 mg by mouth daily. 2 mg Refills: 1 STOPPED Medications potassium chloride 20 mEq Tbsr Smoking Status at Discharge: Social History Tobacco Use Smoking Status Never Smoker Smokeless Tobacco Never Used Instructions Given to Patient at Discharge: Patient Instructions Instruction after leaving the hospital Why you were hospitalized: Acute upper GI bleed Call your doctor or seek medical attention if you develop the following: Melena, bright red blood per rectum, lightheadedness, chest pain or shortness of breath Activity level: as tolerated Diet: as before Home Oxygen therapy: please use home oxygen as previously prescribed 2-3L Specific instructions related to your condition: 1. You had an upper GI bleed. Please avoid ibuprofen, Motrin and Advil. Please use only Tylenol for pain 2. You will take pantoprazole 20 mg twice daily for 3 months. This will reduce the amount of stomachacid made to help promote ulcer healing. 3. Your Lasix (with potassium) and metoprolol were not continued on discharge. Please wait 48 hours before restarting these medications if eating well and feeling well without lightheadedness or dizziness. Follow-Up Appointments Patient has PCP appointment next week Your Inpatient Doctor(s) at [facility]: Alphonso General Instructions None Discharge References/Attachments None documented in this encounter Discharge Instructions Patient InstructionsMichael Werner MD - 11/20/2018 11:15 AM EDT Instruction after leaving the hospital Why you were hospitalized: Acute upper GI bleed Call your doctor or seek medical attention if you develop the following: Melena, bright red blood per rectum, lightheadedness, chest pain or shortness of breath Activity level: as tolerated Diet: as before Home Oxygen therapy: please use home oxygen as previously prescribed 2-3L Specific instructions related to your condition: 1. You had an upper GI bleed. Please avoid ibuprofen, Motrin and Advil. Please use only Tylenol for pain 2. You will take pantoprazole 20 mg twice daily for 3 months. This will reduce the amount of stomachacid made to help promote ulcer healing. 3. Your Lasix (with potassium) and metoprolol were not continued on discharge. Please wait 48 hours before restarting these medications if eating well and feeling well without lightheadedness or dizziness. Follow-Up Appointments Patient has PCP appointment next week Your Inpatient Doctor(s) at [facility]: Alphonso documented in this encounter Medications at Time of Discharge Medication Sig Dispensed Refills Start Date End Date multivitamin (THERAGRAN) Take 1 tablet by 30 tablet 12 11/20 Tablet mouth daily. metoprolol tartrate Take 1 tablet by 180 tablet 0 11/22/2018 (LOPRESSOR) 25 mg Tablet mouth 2 times daily. Sirolimus 2 mg Tablet Take 2 mg by mouth 1 2018 daily. simvastatin (ZOCOR) 20 mg Take 20 mg by mouth 1 0 11/16/2018 Tablet daily. CIS Free Text Med - 1 Puff(s), Inh, 0 06/08/2008 Albuterol Q4-6H,PRN pantoprazole (PROTONIX) Take 1 tablet by 60 tablet 2 201807/01/2020 20 mg Tablet, Delayed mouth 2 times Release (E.C.) daily. furosemide (LASIX) 40 mg Take 1 tablet by 0 11/2208/14/2021 Tablet mouth daily. sertraline (ZOLOFT) 100 Take 100 mg by 0 10/02/19 19 08/06/2021 mg Tablet mouth daily. documented as of this encounter Progress Notes Anabela Martínez RN - 11/20/2018 2:32 PM EDT Pt education given, 2 IVs removed, 5 rings given back to patient. Pt is on 2L NC with personal belongings in back Michael Werner MD - 11/20/2018 11:43 AM EDT Hospital Medicine - Attending Day of Discharge Documentation Discharge diagnosis Active Hospital Problems Diagnosis ??? Acute blood loss anemia ??? Chronic respiratory failure with hypoxia ??? Hypotension Resolved Hospital Problems Diagnosis Date Resolved ??? Acute upper GI bleed 11/20/2018 Secondary Issues Active Non-Hospital Problems Diagnosis ??? Chest pain I have personally seen and examined the patient and they are ready for discharge. No melena or hematochezia. Vitals stable. Eating well. Ready to be d/c'd. Hb stable at 8.2. Satting well on 2L- home oxygen I spent 40 minutes involved in the final examination of the patient, discussion of the hospital stay, instructions for continuing care to all relevant caregivers, and preparation of discharge records, prescriptions and referral forms. Plans ? Discharge to home ? Follow-up scheduled with PCP ? Please see the Discharge Summary for complete details of any medication changes and additional plans. Mary Thayer RN - 11/19/2018 6:12 PM EDT OUTCOME EVALUATION NOTE: OUTCOME SUMMARY: Patient alert and oriented X4. Patient functioning at baseline and utilizing 2L NC. Patient had endoscopy. No c/o pain or discomfort. PLAN MOVING FORWARD: Continue with plan of care Lisa Marino RN - 11/19/2018 3:24 PM EDT Report called to Jane. FRAZIER. Concepcion Lopez MD - 11/19/2018 7:46 AM EDT Critical Care Progress Note Patient Name: Paradise Abel Date of Admission: 11/18/2018 ( Hospital Day 1 day ) Service: Critical Care ID: Paradise Abel is a 58 y.o. female w FOLEY p/w fatigue. Transferred from [place] for Hgb 5 w hypotension. Active Problems: Anemia Notable 24 hr events: - No acute events overnight Subjective: Feel fine. Difficulty sleeping due to noise, but otherwise no complaints O/N. Vital Signs: Last value Range last 24 hrs Temperature Temp: 36.9 ??C (98.4 ??F) Temp: [36.6 ??C (97.9 ??F)-37 ??C (98.6 ??F)] Heart Rate Heart Rate: 86 Heart Rate: [67-86] Blood Pressure BP: 116/66 BP: (86-116)/(50-91) Respiratory Rate Resp: 14 Resp: [10-24] SpO2 SpO2: 98 % SpO2: [83 %-100 %] No data found. I/O: Intake/Output Summary (Last 24 hours) at 11/19/2018904 Last data filed at 11/19/2018 0800 Gross per 24 hour Intake 250 ml Output 400 ml Net -150 ml Physical Exam: Gen: in bed in NAD; alert, oriented, interactive CV: RRR, normal S1/S2, no S3/S4, no m/r/g, no JVD Resp: Subtle subcostal retrations. CTAB Abd: +BS, soft, NT, ND Ext: WWP, no cyanosis, no clubbing, 2+ DP pulses, no YARIEL Neuro: No focal deficits noted, CN II-XII grossly intact, moves all extremities spontaneously Skin: no rashes, lesions, or ulcerations noted Labs Recent Labs 11/19/18 0711/19/1814411/18/182029 WBC 6.1 6.6 7.2 HGB 8.0* 7.7* 8.0* HCT 24.4* 24.1* 25.0* PLATELET 299 273 286 Recent Labs 11/19/1814411/18/182029 NA 138 137 K 4.0 4.5 CL 101 100 CO2 24 24 BUN 12 13 CREATININE 0.79 0.89 Recent Labs 11/19/1814411/18/182029 AST 21 Not Perf ALT 10 11 ALKPHOS 53 60 BILITOT 0.2 0.4 BILIDIR <0.1 0.1 Recent Labs 11/19/1814411/18/182029 CALCIUM 8.5 8.4* MAGNESIUM -- 1.00 PHOS -- 3.8 Recent Labs 11/19/18 0145 INR 0.9 PT 10.0 PTT 21* Recent Labs 11/18/18 1856 POCGLU 82 Imaging/Studies: CT A/P - pending Assessment: 58 y.o. female w FOLEY transferred from [place] w fatigue, hypotension, and Hgb 5. Pt is HS, relatively well-appearing today, able to ambulate to bathroom wo become tired, and Hgb stabilized s/p 2u RBCs and OSH and IVF here overnight. Most likely etiology is UGIB given h/o melanic stool combined w possible GI foreign body on my initial read of CT A/P. Bleed 2/2 NSAID unlikely given minimal usage, sirolimus effect unlikely given long-term stable dose wo sx, neoplasm unlikely given sudden onset, variceal bleed unlikely given EtOH usage wnl and absence of cirrhotic stigmata, Will continue to manage medically with octreotide, PPI, andfluids prn. Plan to transfer to floor today for further workup including EGD. Plan: Neurological/Cognitive/Sedation #hx of depression - continue home sertraline 100 mg daily ?? Cardiovascular #hypotension - secondary to acute blood loss anemia; see below in GI - hold home furosemide 40 mg and metoprolol tartrate 25 mg BID ?? Pulmonary #FOLEY - continue home sirolimus 2 mg daily - patient states her home symbicort and spiriva were stopped today by her PCP - albuterol nebulizer q 2hr prn - duoneb q 6 hrs prn - Oxygen per NC per patients home dose; SpO2 >92% ?? GI #UGIB - s/p IV pantoprazole 80 mg IV at OSH - s/p 2 units pRBC's at OSH - Hgb on arrival here @ 1999 was 8; will recheck with AM labs at 0100 then every 6-8 hours - continueIV pantoprazole 40 mg BID - consent for transfusion obtained - GI consult; will evaluate in AM - sips and chips until midnight then NPO for potential EGD ?? Renal Hx of R nephrectomy; avoid nephrotoxic medications ?? Endocrine No acute issues ?? ID No acute issues ?? Hematology #acute blood loss anemia - see above in GI - f/u B12 and folate ? Routine Diet: Sips and chips; NPO at midnight DVT: SCD GI: pantoprazole 40 mg IV BID Lines: PIV Code Status: Full Code Concepcion Lopez MD, PGY-2 Critical Care (pgr. [id number]) Associated attestation - Salo Matson MD - 11/19/2018 11:09 AM EDT Images from the original note were not included. I have seen the patient and reviewed the resident's above history and I agree with the details as written. The assessment and plan were formulated in discussion with me and I agree with them as documented. I think chronic / subacute UGI bleed the likely etiology of anemia. Hemolysis / ACD less likely. I don't think sirolimus is driving anemia. Her FOLEY is stable radiographically and in terms of her oxygenrequirements. Hb and BP stable - can transfer to a medical floor today. Discussed with GI - plan forEGD as inpatient Interestingly there appears to a radio-opaque capsule like density in the bowel behind the lower pole of the liver (see below). Patient denies foreign body ingestion except for possibly swallowing a Spiriva capsule 2 years ago. GI aware Salo Matson MD documented in this encounter H&P Notes Sandor Dasilva MD - 11/19/2018 2:53 PM EDT Gastroenterology and Hepatology Pre-Procedure History and Physical Exam Procedure: EGD: Indication: melena Patient Active Problem List Diagnosis Code ??? Chest pain R07.9 ??? Hypotension I95.9 EXAM: HEENT: Airway examined, oropharynx clear Mallampati Score: II (soft palate, uvula, fauces visible) LUNGS: Clear to auscultation HEART: Regular rate and rhythm, normal S1, S2 ABDOMEN: Normal bowel sounds, soft, non tender, non distended, A/P Proceed with the planned endoscopic procedure. ASA 2 - Patient with mild systemic disease with no functional limitations Sedation Plan: anesthesia Risks and benefits of the procedure explained to the patient. Consent signed. Brenda Pardo MD - 11/19/2018 10:08 AM EDT Hospital Medicine Admission H&P/Transfer Note Active Hospital Problems Diagnosis ??? Hypotension Resolved Hospital Problems No resolved problems to display. Active Non-Hospital Problems Diagnosis ??? Chest pain Patient ID: Mrs. 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 Other notable labs include +FOBT, normal LFT's, BUN of 18 and normal PTT and PT/INR. She would be given 2 units of pRBC's prior to transfer. Upon arrival, patient was hemodynamically stable with hemoglobin of 8. Patient would be monitoredovernight without any notable events. Per patient, she had started on amoxicillin last Saturday for tooth abscess. The following day, shebegan to experience belly ache that she attributed to a stomach bug. On Saturday, patient began to have multiple episodes of diarrhea (loose, soupy, dark brown, non-sticky, non-bloody). Each episode was preceded by generalized abdominal discomfort that resolved after bowel movement. She would stopped taking the abx on Saturday and started feeling better by Saturday. She believes that she has taken Amoxicillin in the past without notable complications, although she thinks the dose was higher this time (2g daily). She notes some mild yellowing of the skin during over this time period, although she feels it has subsequently resolved. She denies any increase in fatigue, SOB, or dyspnea w exertion above baseline over this time period. There have been no recent changes to patient's prescribed medical regiment. She does not take steroids or anticoagulants and is on a stable dose of sirolimus. She does, however, report a history of daily Ibuprofen use for back aches in the past but quit several months ago because she was told it wouldincrease her risk of bleeding. She subsequently switched to using naproxen intermittently over the past several weeks for same back aches and headaches. The frequency and dosing of which was escalatingwhen diarrhea started last week (4 pills daily). No history of GERD, notes 9 pound weight loss over past 6 months EGD. Had colonoscopy 2 years ago [facility] that she reports as normal and scheduled follow up in 10 years. She has never had an EGD. Review of Systems (positives in bold) General: chills, fatigue, fever or night sweats Eye: blurry vision, double vision, loss of vision or photophobia HENT: headaches, sore throat or vertigo Heme/Lymph: Bleeding/bruising, blood clots, jaundice, pallor or swollen lymph nodes Resp: cough, hemoptysis, orthopnea, shortness of breath or wheezing Cardio: chest pain, dyspnea on exertion, edema, loss of consciousness, palpitations, paroxysmal nocturnal dyspnea or shortness of breath Gastro: abdominal pain, blood in stools, constipation, diarrhea, heartburn, hematemesis, melena or nausea/vomiting : dysuria, hematuria or urinary frequency/urgency MSK: joint pain, joint stiffness, joint swelling, muscle pain or muscular weakness Neuro:dizziness, gait disturbance, impaired coordination/balance, memory loss, numbness/tingling, seizures, speech problems, tremors or visual changes Derm: lumps or rash PMH Past Medical History: Diagnosis Date ??? Angiomyolipoma of left kidney ??? Carpal tunnel syndrome ??? Clear cell carcinoma of kidney, right ??? HTN (hypertension) ??? Hyperlipidemia ??? Lymphangioleiomyomatosis PSH Past Surgical History: Procedure Laterality Date ??? KIDNEY REMOVAL Right Allergies: Allergies Allergen Reactions ??? Hymenoptera Allergenic Extract Anaphylaxis Meds No current facility-administered medications on file prior to encounter. Current Outpatient Medications on File Prior to Encounter Medication Sig Dispense Refill ??? furosemide (LASIX) 40 mg Tablet Take 40 mg by mouth daily. 0 ??? metoprolol tartrate (LOPRESSOR) 25 mg Tablet Take 25 mg by mouth 2 times daily. 0 ??? Sirolimus 2 mg Tablet Take 2 mg by mouth daily. 1 ??? simvastatin (ZOCOR) 20 mg Tablet Take 20 mg by mouth daily. 1 ??? potassium chloride 20 mEq Tablet Sustained Release Take 20 mEq by mouth daily. 0 ??? sertraline (ZOLOFT) 100 mg Tablet Take 100 mg by mouth daily. 0 ??? CIS Free Text Med - Albuterol 1 Puff(s), Inh, Q4-6H,PRN ??? CIS Free Text Med - oxygen 4-6 L continuous flow 4-6 L continuous, Nasal, as directed ??? multivitamin (THERAGRAN) tablet Family History Family History Problem Relation Age of Onset ??? Asthma Brother Social History Social History Socioeconomic History ??? Marital status: Spouse name: Not on file ??? Number of children: Not on file ??? Years of education: Not on file ??? Highest education level: Not on file Occupational History ??? Not on file Social Needs ??? Financial resource strain: Not on file ??? Food insecurity: Worry: Not on file Inability: Not on file ??? Transportation needs: Medical: Not on file Non-medical: Not on file Tobacco Use ??? Smoking status: Never Smoker ??? Smokeless tobacco: Never Used Substance and Sexual Activity ??? Alcohol use: Yes Alcohol/week: 0.6 - 1.8 oz Types: 1 - 3 Glasses of wine per week ??? Drug use: Never ??? Sexual activity: Not on file Lifestyle ??? Physical activity: Days per week: Not on file Minutes per session: Not on file ??? Stress: Not on file Relationships ??? Social connections: Talks on phone: Not on file Gets together: Not on file Attends sikh service: Not on file Active member of club or organization: Not on file Attends meetings of clubs or organizations: Not on file Relationship status: Not on file ??? Intimate partner violence: Fear of current or ex partner: Not on file Emotionally abused: Not on file Physically abused: Not on file Forced sexual activity: Not on file Other Topics Concern ??? Not on file Social History Narrative ??? Not on file Vital Signs Last value Range last 24 hrs Temperature Temp: 37 ??C (98.6 ??F) Temp: [36.6 ??C (97.9 ??F)-37 ??C (98.6 ??F)] Heart rate Heart Rate: 82 Heart Rate: [67-86] Blood pressure BP: 114/82 BP: (86-116)/(50-91) Respiratory rate Resp: 23 Resp: [10-24] SpO2 SpO2: 99 % on 2 L SpO2: [83 %-100 %] Physical Exam Gen: NAD, resting comfortably, speaking full sentences HEENT: sclera non-icteric, neck supple, no LAD, no carotid bruits CV: RRR, S1S2, no MRG, 2+radial & posterior tibial, femoral and pedal pulses Pulm: good air movement, CTAB, no wheezing, crackles or rhonchi Abd: epigastric tenderness, peritoneal signs absent, soft, non-distended, +BS Ext: no peripheral edema, no clubbing, no cyanosis. Skin: warm and dry, no rash or petechiae Neuro: AOx3. no focal deficits grossly noted. CN II-XII intact Labs Recent Labs 11/19/18 0711/19/1814411/18/182029 WBC 6.1 6.6 7.2 HGB 8.0* 7.7* 8.0* PLATELET 299 273 286 Recent Labs 11/19/1814411/18/182029 NA 138 137 K 4.0 4.5 CL 101 100 CO2 24 24 BUN 12 13 CREATININE 0.79 0.89 GLUCOSE 68 82 CALCIUM 8.5 8.4* MAGNESIUM -- 1.00 PHOS -- 3.8 Recent Labs 11/19/1814411/18/182029 PROT 5.1* 5.7* ALBUMIN 3.1* 3.5 BILITOT 0.2 0.4 BILIDIR <0.1 0.1 AST 21 Not Perf ALT 10 11 ALKPHOS 53 60 Coags Lab Results Component Value Date INR 0.9 11/19/2018 PT 10.0 11/19/2018 PTT 21 (L) 11/19/2018 No results for input(s): CK, TROPONINT in the last 168 hours. Imaging: See outside CT chest Assessment/Plan Mrs. Abel is a pleasant 58 year old female w PMHx of FOLEY who presented to [facility] ICU for anemia (5) in setting of suspected GI bleed. Since receiving 2 units pRBC, patient's hemoglobin and vitals have remained remarkably stable, which warrants de-escalation of care at this time. In light of her prior ibuprofen use and recent escalation in Naproxen use, her story of reproducible epigastric pain is highly concerning for gastric/duodenal ulcer and concomitant platelet dysfunction. What is not clear at this time is how extensive her shift in hemoglobin was as a result of this suspected GI bleed. Per verbal report, her hemoglobin as 13 several months ago. Based on her history, she appears to have been largely asymptomatic prior to presentation and diarrhea description is not consistent with melena. Inlight of 9 pound weight loss over past 6 months, it is possible that her anemia is related to insidious etiology that predates the past week of events (malignancy, marrow suppression, EPO deficiency inlight of single kidney). Patient, reassuringly, had normal colonoscopy 2 years ago. She reports several days of jaundice over this time period, which can be seen with GI bleed or hemolytic process. In setting of diarrhea and abx use, HUS is certainly concerning, although her labs suggest normal renal function. There is also no evidence of hyperbilirubinemia. RWD was elevated, which suggests two cell lines, although this is difficult to interpret in light of 2 blood transfusions. Will hope to proceed with EGD today to rule in/out upper source of GI blood loss. #Suspected acute blood loss related anemia 2/2 upper gastrointestinal bleed - s/p 2 units pRBC at OSH - BID PPI - maintain active type/screen - GI consulted, appreciate recs - obtain Retic count - q12hr hemograms #Hx FOLEY - ct Sirolimus - albuterol nebulizer q 2hr prn - duoneb q 6 hrs prn - supplemental O2 (maintain sats >92) #Hx Depression - ct Zoloft #Hx of HTN - hold home metop #Home Regiment - ct simvastatin - hold K supplement - hold home Lasix # FEN/PPX -Fluid/lytes: K>4, Mg >1 -Diet: NPO -DVT ppx: hold in setting of possible GI bleed -GI ppx: BID PPI - Code Status: Full Code Parveen Augustin MD PGY1, Internal Medicine #[id number] 11/19/2018 Attending Staff Admission Documentation I certify that the patient requires: [x] inpatient care status due to [Acute blood loss anemia ] I have examined the patient myself on 11/19/2018 and reviewed all labs and studies personally. Please see Dr. Parveen Augustin's documentation for details of the patient history of presentation and data. I have discussed, reviewed and agree with the documented history with ROS, physical findings, labs/studies, assessment and plan of care. Jaclyn Epps MD - 11/19/2018 6:33 AM EDT Gastroenterology and Hepatology Pre-Procedure History and Physical Exam Procedure: EGD: Indication: Melena Patient Active Problem List Diagnosis Code ??? Chest pain R07.9 ??? Hypotension I95.9 EXAM: HEENT: Airway examined, oropharynx clear Mallampati Score: II (soft palate, uvula, fauces visible) LUNGS: Diminished breath sounds, wearing nasal cannula HEART: Regular rate and rhythm, normal S1, S2 ABDOMEN: Normal bowel sounds, soft, non tender, non distended A/P Proceed with the planned endoscopic procedure. ASA 3 - Patient with moderate systemic disease with functional limitations Sedation Plan: anesthesia Risks and benefits of the procedure explained to the patient. Consent signed. Please see separate consult note for further details. Jessie Piña Priscila - 11/18/2018 3:33 PM EDT Patient Name: Paradise Abel Patient Age: 58 y.o. Birthdate: 1960 Admit date: 11/18/2018 Attending Physician: Salo Matson MD CRITICAL CARE SERVICE ADMISSION HISTORY AND PHYSICAL Patient Name: Paradise Abel MR#: [id number] : [id number] CC: 58 y.o. Female with increase dyspnea on exertion and fatigue HISTORY OF PRESENT ILLNESS: Paradise Abel () is a 58 y.o. female with a history of pulmonary lym FOLEY (on 3L home O2) presenting in transfer from [facility] for hypotension and found to have a Hgb of 5. Patient micaela was in her usual state of health until last week when she was started on amoxicillin 500mg 4 times a day for a tooth abscess on Saturday. She felt fine on Saturday and but on Saturday she started have diarrhea all day with associated epigastric abdominal pain and heart burn. Patient relates that her stool was very dark on Saturday, Saturday and Saturday. On Saturday She took pepto-bismal and tums and then stopped taking the amoxicillin. Once she stopped taking the amoxicillin she started feeling significantly better and was able to eat. She restarted the antibiotics on Saturday night and then started having diarrhea on Saturday morning that was brown. Patient called the dentist and was told to stop the amoxicillin which she did. This morning she was at her PCP's office and was told that her blood pressure was low 60's/30's, but she felt fine and had her appointment. Her PCP is new and asked her to stop in the triage of the [facility] to have her vitals rechecked there before driving home. The patient relates that she felt very fatigued and more short of breath and increased her oxygen while walking across the parking lot to the emergency department. On arrival to the ED her BP was again found to be low in the 60-70's/30's. Her labs were check and she was found to have a hemoglobin of 5,+FOBT, normal LFT's, BUN of 18 and normal PTT and PT/INR. She relates that she did notice that she has been looking more pale. She has used naproxen this past week on Saturday and Saturday for a headache(2 pills each day); but otherwise denies NSAID use, recent steroids or anticoagulants. She has no personal or family history of bleeding disorders or ulcers. Her only complaint currently is that she ishungry and does have some epigastric discomfort. . OSH labs prior to transfer: 5.0 7.5 H/H 284 MCV 111 16.1 139 104 18 Glc Ca 9.5 4.1 26 0.97 84 Mg 1.4 L Phos 5.5 3.4 0.6 21 15 AP 52 Review of Systems: GENERAL HEENT CV PULM All negative All negative All negative All negative Weight loss x Headache Chest Pain Non-productive cough Weight gain Vision change Palpitations Productive cough Fevers Sinus congestion Orthopnea Wheezing Chills Hoarseness LE edema Hemoptysis Night sweats Epistaxis PND Pleuritic pain x Fatigue Syncope SOB Claudication x [facility] ENDO GI All negative All negative All negative All negative Arthralgias Frequency Heat intolerance Blood in stool Myalgias Urgency Cold intolerance Dysphagia Weakness Hematuria Polydipsia Odynophagia Stiffness Flank pain Polyphagia x Abdominal discomfort Dysuria Cushingoid Constipation Foamy urine x Diarrhea-dark liquid Discharge Nausea/Vomiting LYMPH SKIN NEURO PSYCH All negative All negative All negative All negative Swollen nodes Rash Seizures Depressed affect Tender nodes Ulcers Tremors Occupational stress Diffuse nodes x Bruising Spasticity Anxiety Local nodes Tanned skin Focal weakness Insomnia Night sweats Telangiectasias Diplopia Paresthesias Dizziness PAST MEDICAL AND SURGICAL HISTORY: 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 furosemide (LASIX) 40 mg Tablet Take 40 mg by mouth daily. 0 11/18/2018 at Unknown time ??? metoprolol tartrate (LOPRESSOR) 25 mg Tablet Take 25 mg by mouth 2 times daily. 0 11/18/2018 at Unknown time ??? Sirolimus 2 mg Tablet Take 2 mg by mouth daily. 1 11/18/2018 at Unknown time ??? simvastatin (ZOCOR) 20 mg Tablet Take 20 mg by mouth daily. 1 11/18/2018 at Unknown time ??? potassium chloride 20 mEq Tablet Sustained Release Take 20 mEq by mouth daily. 0 11/18/2018 at Unknown time ??? sertraline (ZOLOFT) 100 mg Tablet Take 100 mg by mouth daily. 0 11/18/2018 at Unknown time ??? CIS Free Text Med - Albuterol 1 Puff(s), Inh, Q4-6H,PRN 11/17/2018 at Unknown time ??? CIS Free Text Med - oxygen 4-6 L continuous flow 4-6 L continuous, Nasal, as directed 11/18/2018 at Unknown time ??? multivitamin (THERAGRAN) tablet 11/18/2018 at Unknown time ??? [DISCONTINUED] CIS Free Text Med - Ibuprofen 600mg, PO, Q8H Unknown at Unknown time FAMILY HISTORY: No family history of GI diorders or bleeding disorders SOCIAL HISTORY: Social History Tobacco Use ??? Smoking status: Never Smoker ??? Smokeless tobacco: Never Used Substance Use Topics ??? Alcohol use: Yes Alcohol/week: 0.6 - 1.8 oz Types: 1 - 3 Glasses of wine per week ??? Drug use: Never PHYSICAL EXAM: Last Value Range last 24 hrs Temperature Temp: 37 ??C (98.6 ??F) Temp: [36.6 ??C (97.9 ??F)-37 ??C (98.6 ??F)] Heart Rate Heart Rate: 73 Heart Rate: [67-79] Blood Pressure BP: 96/80 BP: (96-111)/(58-91) Respiratory Resp: 16 Resp: [16-24] SpO2 SpO2: 96 % SpO2: [83 %-100 %] Art BP BP (Arterial Line): -- Weight GENERAL: NAD, well-developed/well-nourished/ appears stated age; cooperative and interactive HEENT: PERRL, EOMI, conjunctival pallor present; Oropharynx: clear, moist mucous membranes, no visible abscess in mouth NECK: Supple, Trachea without deviation, no LAD LUNG: Poor air entry throughout, no wheezing, rhonchi or rales appreciated CARDIAC: Distant heart sounds, RRR, no MGR appreciated ABDOMEN/GI: +BS, soft, tenderness to light palpation in epigastric area with guarding. MS: no edema, no deformity SKIN: warm, dry NEURO: CN II-XII grossly intact, sensation grossly intact, no focal abnormalities L/T/D: 2PIVs. LABORATORY: Recent Labs 11/18/182029 WBC 7.2 HGB 8.0* HCT 25.0* PLATELET 286 Recent Labs 11/18/182029 NA 137 K 4.5 CL 100 CO2 24 BUN 13 CREATININE 0.89 GLUCOSE 82 CALCIUM 8.4* MAGNESIUM 1.00 PHOS 3.8 Recent Labs 11/18/182029 AST Not Perf ALT 11 ALKPHOS 60 BILITOT 0.4 BILIDIR 0.1 MICRO: none ECG: pending IMAGING: CT Chest/Abdomen/Pelvis Stable FOLEY of b/l lungs (compared to CT chest of 2011); absent right kidney; no obvious sign of bleeding. Distended bladder without wall thickening. Assessment/Problem List: Paradise Abel is a 58 y.o. female with PMH of FOLEY on home O2 presentingin transfer from the [facility] Emergency Department after patient was found to be hypotensive 60's/30's at her PCP, and found to be persistently hypotensive in the ED with labs showing a hemoglobin of 5 and a positive fecal occult blood. Given concern for UGIB and no EGD available at [facility] patient was resuscitated with 2 units of pRBC's, given a dose of IV pantoprazole, and transferred to [facility] for specialty care. On arrival to the ICU patient is hemodynamically stable, s/p 2 units with Hgb of 8, and her only complaints is that she is hungry. Considering patients recent historyof several days of dark stool and epigastric pain on exam, her normal liver enzymes and bilirubin, and CT of abdomen without varices or ascites, patient is most likely suffering from a gastric or duodenal ulcer and less likely variceal or hemolysis. Additionally patient has received 2 units of pRBC's thus decreasing the yield of an hemolysis work-up within the next several days. Patient's MCV is significantly elevated; unclear if this is driven soley by a significantly elevated RDW, will check folate and B12 levels. Rest of plan per below: Neurological/Cognitive/Sedation #hx of depression - continue home sertraline 100 mg daily Cardiovascular #hypotension - secondary to acute blood loss anemia; see below in GI - hold home furosemide 40 mg and metoprolol tartrate 25 mg BID Pulmonary #FOLEY - continue home sirolimus 2 mg daily - patient states her home symbicort and spiriva were stopped today by her PCP - albuterol nebulizer q 2hr prn - duoneb q 6 hrs prn - Oxygen per NC per patients home dose; SpO2 >92% GI #UGIB - s/p IV pantoprazole 80 mg IV at OSH - s/p 2 units pRBC's at OSH - Hgb on arrival here @ 2000 was 8; will recheck with AM labs at 0100 then every 6-8 hours - continueIV pantoprazole 40 mg BID - consent for transfusion obtained - GI consult; will evaluate in AM - sips and chips until midnight then NPO for potential EGD Renal Hx of R nephrectomy; avoid nephrotoxic medications Endocrine No acute issues ID No acute issues Hematology #acute blood loss anemia - see above in GI - f/u B12 and folate Routine Diet: Sips and chips; NPO at midnight DVT: SCD GI: pantoprazole 40 mg IV BID Lines: PIV Code Status: Full Code Jessie Piña MD Internal Medicine PGY-2 Blue Team, Pager [phone] Associated attestation - Salvador Kinney MD - 11/19/2018 12:14 AM EDT CRITICAL CARE ATTENDING ATTESTATION NOTE The patient was seen in conjunction with the resident physician. I have independently performed the mendoza portions of the history and physical exam. I have personally reviewed nursing notes, vital signs,and diagnostic studies including labs, imaging studies and EKGs. I have discussed the details of the case with the resident and agree with the assessment and plan as described in the resident's note. IS PATIENT CRITICALLY ILL ? Is there a high potential of sudden, clinically significant, or life threatening deterioration? Yes Is there a need for direct personal assessment and management to treat/prevent multiple vital organfailure/deterioration? No If this patient is not critically ill, the reason for continued hospitalization is anemia. documented in this encounter Miscellaneous Notes Plan of Care - Samantha Shoemaker RN - 11/20/2018 6:04 AM EDT Problem: Patient Care Overview Goal: Plan of Care Review Outcome: Ongoing (Interventions Implemented as Appropriate) 11/20/18 0558 Coping/Psychosocial Plan Of Care Reviewed With patient Plan of Care Review Progress improving Neuro: Patient alert and oriented x4. Patient moves all extremities equally, and ambulates on her own. Patient pupils perrla. Patient follows commands. Respiratory: 2L nc. Patient lung sounds diminished in the bases coarse in the uppers. Cardiac: Afebrile, bp stable. No edema noted. Pulses positive. GI: no bowel movement this shift. Patient passing flatus, bowel sounds active. : patient voids spontaneously into bedside commode. No c/o pain or discomfort. Possible discharge today. Goal: Fall Prevention-Safe Patient Handling Outcome: Ongoing (Interventions Implemented as Appropriate) 11/19/18199911/20/18 0000 11/20/18 0400 Genao Fall Risk History of Falling 0 -- -- Secondary Diagnosis 15 -- -- Ambulatory Aids 0 -- -- Intravenous Therapy/Heparin/Saline Lock 20 -- -- Gait/Transferring 0 -- -- Mental Status 0 -- -- Score 35 -- -- OTHER Genao Fall Risk Med -- -- Restraint Interventions Safety Promotion/Fall Prevention -- -- safety round/check completed Positioning Body Position -- -- independent Activity Activity Type -- -- activity adjusted per tolerance Activity Assistance Provided -- -- independent Assistive Device Utilized -- none -- Goal: Infection Control Outcome: Ongoing (Interventions Implemented as Appropriate) 07/03/19 2000 Safety Interventions Isolation Precautions standard precautions maintained Infection Prevention rest/sleep promoted Coping Strategies Supportive Measures active listening utilized Goal: Discharge Needs Assessment Outcome: Ongoing (Interventions Implemented as Appropriate) 11/19/18 0527 Discharge Needs Assessment Concerns To Be Addressed no discharge needs identified Problem: Gastrointestinal Bleeding (Adult) Goal: Signs and Symptoms of Listed Potential Problems Will be Absent, Minimized or Managed (Gastrointestinal Bleeding) Signs and symptoms of listed potential problems will be absent, minimized or managed by discharge/transition of care (reference Gastrointestinal Bleeding (Adult) CPG). Outcome: Ongoing (Interventions Implemented as Appropriate) 11/20/18 0558 Gastrointestinal Bleeding Problems Assessed (GI Bleeding) all Problems Present (GI Bleeding) none Problem: Skin Integrity Impairment, Risk/Actual (Adult) Goal: Skin Integrity/Wound Healing Patient will demonstrate the desired outcomes by discharge/transition of care. Outcome: Ongoing (Interventions Implemented as Appropriate) 11/20/18 0558 Skin Integrity Impairment, Risk/Actual (Adult) Skin Integrity/Wound Healing making progress toward outcome Plan of Care - Vilma Shoemaker, PT - 11/19/2018 11:46 AM EDT Physical Therapy Evaluation Patient profile: Paradise Abel is a 58 y.o. female admitted on 11/18/[address] Salo Matson MD from and OSHwith HGB of 5 and hypotension. Pt given 2 UPRBCs and IVF. GI consult completed and endoscopy is pending. Pt has a h/o melanic stools. Possible UGIB. HGB 8 post transfusion. Patient with the following active problems: Past Medical History: Diagnosis Date ??? Angiomyolipoma of left kidney ??? Carpal tunnel syndrome ??? Clear cell carcinoma of kidney, right ??? HTN (hypertension) ??? Hyperlipidemia ??? Lymphangioleiomyomatosis Depression Past Surgical History: Procedure Laterality Date ??? KIDNEY REMOVAL Right Social History: Home set-up: lives with and cats. No children. 2 story home with flight of stairs with railing, to bedroom. does laundry due to washer and dryer in the basement. Pt drives but does not work. works outside of home. Baseline Mobility: independent, no devices. Slow and needs to self pace. ON home O2, 1-3L Equipment at home: O2 Fall history: no Precautions/Special Considerations: full code. Home O2 dependent. NPO. Anemia. Recent hypotension. Mobility and Positioning Recommendations: ?? Pt. to utilize no devices, supplemental O2 and supervision for ambulation and transfers with nursing. ?? Please encourage up to chair for meal times as able. ?? Pt encouraged to ambulate frequently with staff, getting into the bathroom for toileting and walking out in the gasca >/= 3 times daily as able. Subjective: ???I have not eaten for 2 days, but I am alright. I have no concerns. I hope they scope me soon so I can go home?? Objective: Pt seen for evaluation today. Pain: Number Location At rest 0/10 - With activity 0/10 - Vital Signs: At Rest With Activity SpO2 (2L at rest and 3L with gait) 97% 93% BP (MAP) 101/64 sitting 138/83, after gait, sitting HR 87 93 Mental Status: alert, oriented to person, place, and time Vision: wfls Skin: wfls Musculoskeletal: ROM: wfls Strength: grossly wfls throughout Sensation: denied numbness or paresthesias. Bed Mobility: Supine to Sit: independent per nursing Sit to Supine: independent per nursing Transfers: Sit to Stand: supervision Stand to Sit: supervision Bed to Chair: supervision Gait: Distance: 150' Device used: PT pushed IV tank and held monitor for her Level of assist: supervision Gait mechanics: gait slow, self paced Stairs: up and down 9 stairs with one rail and supervision Balance: No LOB noted Education: patient has been educated on Transfers, Stairs, Safety , Activity pacing/Energy conservation, Role of therapy, Balance and Discharge planning and verbalizes and demonstrates understanding. Patient status, treatment, and mobility recommendations discussed with nursing. Pt left sitting up in the recliner Assessment: Paradise Abel was seen today for physical therapy evaluation. Pt admitted with likely UGIB with Endoscopy pending. Pt is a moderate complexity given acute on chronic conditions; in needof O2 chronically; anemia; desaturates but pt monitors self at home; grossly weak from 2 days of relative immobility and not eating; and supervision with mobility given recent hypotension and need to assist with monitors and O2. Pt is relatively young and independent. Should do well as she starts to eat and moves around with nursing staff. Do not feel pt needs ongoing PT. Pt understands needs for ongoing self pacing and energy conservation given anemia and chronic pulmonary condition. Pt has been onHome O2 x 10 years. supportive, but not present. The pt would benefit from skilled therapy services while in the hospital to maximize functional abilities. Discharge Recommendations: Based on the current findings, Anticipated Discharge Disposition: home when medically ready for hospital discharge. Consult Recommendations: No other consults recommended at this time. Equipment needs: No equipment necessary Goals: To be achieved by 11/19: (all goals met) 1. Pt. to demonstrate knowledge of safety limitations and precautions and will appropriately requestassistance for functional activities and to mobilize. 2. Pt. to demonstrate understanding of appropriate self pacing techniques 3. Pt. to perform bed mobility with modified independence. 4. Pt. to perform sit<>stand transfers with modified independence using no assistive device. 5. Pt. to ambulate 150' feet with supervision using a no assistive device. 6. Pt. to ambulate up/down step/stairs using one rail with supervision. 7. Pt will tolerate progression towards upright with stable vital signs. Plan: Therapy Frequency: evaluation only for therapy including gait training, patient/family education, stair training and transfer training. [...] Addressing 1-2 elements Addressing 3 + elements x Addressing 4 + elements ?? Clinical presentation: See assessment above. Stable/Uncomplicated Evolving/Fluctuating Symptoms Unstable/Unpredictable x ?? Clinical decision making of moderate complexity based on pt's functional performance as outlined in this evaluation. Time IN / OUT: 1282-7878 Total Evaluation Minutes, Physical Therapy: 34(mod ev) VILMA SHOEMAKER, PT Pager: [phone] Physical Therapy Inpatient Rehabilitation Department Plan of Care - Teetee Nascimento, OT - 11/19/2018 9:30 AM EDT Occupational Therapy Evaluation Patient profile: Paradise Abel is a 58 y.o. female patient of Dr. Salo Matson MD, admitted on 11/18/2018 with HGB of 5 and hypotension. Pt given 2 UPRBCs and IVF. GI consult completed and endoscopy is pending. Pt has a h/o melanic stools. Possible UGIB. HGB 8 post transfusion. Past Medical History: Diagnosis Date ??? Angiomyolipoma of left kidney ??? Carpal tunnel syndrome ??? Clear cell carcinoma of kidney, right ??? HTN (hypertension) ??? Hyperlipidemia ??? Lymphangioleiomyomatosis Past Surgical History: Procedure Laterality Date ??? KIDNEY REMOVAL Right Social History: Patient lives with her who works (bookstore clerk at [employer]) Home Setup: 4 steps to enter, multi level home w/ bedroom on 1st floor but bathroom w/ full tub upstairs (reports bathfitter tub), has a grab bar and a seat DME: shower seat, grab bars Baseline ADL/Mobility: Pt was independent w/ ADL's and most IADL's. She uses 2-3 L 02 at home (inc to 3 L with activity). Pt reports that because of her lung disease and back pain (chronic) she is limited with how long she can stand. She has some adaptations at home that allow her to continue to function (mats in her kitchen). She can manage some cooking and cleaning. Her does the laundry ( in basement) and the grocery shopping. She still drives and runs errands. Precautions/Special Considerations: fall Subjective: It feels good to move... I haven't been here too long so I'm not too weak. Objective: Seen today for OT evaluation. Cognitive Status/Behavior: ?? Behavior / Mood: alert and cooperative ?? Alert and oriented to: person, place, time and situation ?? Follows commands: 2 step and 100% of the time ?? Attention: WFL Vision & Perception: ?? corrective lenses for reading and driving Communication: WFL Range of motion, strength, coordination: Hand dominance: right Bilateral UEs are within functional limitations LE limitations: none Sensation: intact Activities of Daily Living: Self-feeding: indep Grooming: stood at the sink and brushed her teeth w/ supervision, no deficits Dressing: supervision for LB dressing, able to stand to tie pants Bathing: not observed; do not anticipate deficits, has shower seat if neede Toileting: Transfer: supervision Hygiene: independent Functional Mobility: Supine to sit: to R EOB, HOB elevated, modified independent Sit to stand: supervision Ambulation: pt ambulated 150' w/ supervision, no LOB, 3 L 02 Stand to sit: supervision Balance: Sitting balance: good Standing balance: good Vitals: At Rest With Activity SpO2 95% 95% Heart Rate 79 80's Blood Pressure 110/77 (99) 139/88 Pain: 0/10 Skin: not assessed Education: Patient has been educated on Role of occupational therapy/rehabilitation, Transfers, ADL,Positioning, Safety, Functional Mobility, Recommendations and Discharge planning and verbalizes understanding. Patient status, treatment, and mobility recommendations discussed with nursing. Assessment: Pt has been seen for occupational therapy evaluation. Paradise Abel presents with the following performance skill deficits and client factors: decreased activity tolerance on 02 (same at baseline) and limited standing tolerance (also baseline). Pt demonstrates the ability to manage her basic ADL's at about her baseline level of function. Anticipate that pt will return home with assistance once medically ready. Do not anticipate further OT needs while hospitalized. Equipment needs at discharge: none anticipated Anticipated Discharge Disposition: home with assist Other Recommendations: ?? ambulate as tolerated with 2-3 L 02 ?? Encourage participation in ADL's by providing set up A on tray table and physical assist only as needed. Other Recommendations: No other consults recommended at this time Plan: OT: Therapy Frequency: evaluation only Total Evaluation Minutes, Occupational Therapy: 25(initial evaluation) 2017 OT Evaluation Code Rationale: ?? Diagnosis & Pertinent Co-Morbidities affecting Plan of Care: see PMHx ?? Occupational Profile & Client History: Brief Expanded Extensive x ?? Assessment of Occupational Performance: 1-3 performance deficits x 3-5 performance deficits 5 + performance deficits ?? Clinical Decision Making: Low Moderate High x Clinical decision making of low complexity using standardized patient assessment instrument and measurable assessment of functional outcome. Pager: [phone] TEETEE NASCIMENTO OT 11/19/2018 Occupational Therapy Rehabilitation Department Consult Note - Jaclyn Epps MD - 11/19/2018 6:24 AM EDT GASTROENTEROLOGY & HEPATOLOGY CONSULTATION Initial Consult Note Requesting Provider: Salo Matson MD REASON FOR CONSULTATION Upper GI bleed HISTORY OF PRESENT ILLNESS Paradise Abel is a 58 y.o. 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 She reports having dark stools and epigastric abdominal discomfort since starting amoxicillin for dental abscess last - 5+ BM daily which persisted over the weekend. She then discontinued her amoxicillin on Saturday and took pepto bismol. Her abdominal pain improved and her diarrhea resolved. Ho wever on Saturday, she had brown stools and called her dentist who recommended stopping the Abx and seeing her PCP. At her PCP's office her BP was noted to be 60s/30s and she endorsed mild lightheadedness. She was sent to the ED in [place] and noted to have a macrocytic anemia with Hgb 5. She was transfused 2 u pRBCs and transferred to [facility] MICU for additional management. She was given PPI IV and made NPO. Denies N/V. Drinks EtOH 10-12 drinks per week and hx of heavy ibuprofen use for migraines. She was told to cut down on NSAIDs about a month ago but did take 2 naproxen pills in the past week for TATE. She has not had any additional dark stools, emesis, or Hgb drop since admission. ROS: 10 systems reviewed, pertinent positives and negatives as noted in HPI PAST MEDICAL/SURGICAL HISTORY: No past medical history on file. MEDICATIONS ??? thiamine 100 mg Intravenous Daily ??? sodium chloride 0.9 % (flush) 5 mL Intravenous BID ??? pantoprazole 40 mg Intravenous BID ??? sertraline 100 mg Oral Daily ??? simvastatin 20 mg Oral QPM ??? sirolimus 2 mg Oral Daily albuterol, ipratropium-albuterol, sodium chloride 0.9 % (flush), lidocaine ALLERGIES Allergies Allergen Reactions ??? Hymenoptera Allergenic Extract Anaphylaxis SOCIAL HISTORY Social History Socioeconomic History ??? Marital status: Spouse name: Not on file ??? Number of children: Not on file ??? Years of education: Not on file ??? Highest education level: Not on file Occupational History ??? Not on file Social Needs ??? Financial resource strain: Not on file ??? Food insecurity: Worry: Not on file Inability: Not on file ??? Transportation needs: Medical: Not on file Non-medical: Not on file Tobacco Use ??? Smoking status: Never Smoker ??? Smokeless tobacco: Never Used Substance and Sexual Activity ??? Alcohol use: Yes Alcohol/week: 0.6 - 1.8 oz Types: 1 - 3 Glasses of wine per week ??? Drug use: Never ??? Sexual activity: Not on file Lifestyle ??? Physical activity: Days per week: Not on file Minutes per session: Not on file ??? Stress: Not on file Relationships ??? Social connections: Talks on phone: Not on file Gets together: Not on file Attends sikh service: Not on file Active member of club or organization: Not on file Attends meetings of clubs or organizations: Not on file Relationship status: Not on file ??? Intimate partner violence: Fear of current or ex partner: Not on file Emotionally abused: Not on file Physically abused: Not on file Forced sexual activity: Not on file Other Topics Concern ??? Not on file Social History Narrative ??? Not on file FAMILY HISTORY No family history on file. Vitals: 11/19/18 0430 11/19/18 0500 11/19/18 0530 11/19/18 0600 BP: (!) 88/55 103/66 91/55 91/54 BP Location (NBP): Right arm Pulse: 70 70 75 72 Resp: 14 13 17 18 Temp: TempSrc: SpO2: 99% 99% 98% 98% Height: PHYSICAL EXAM GENERAL: No acute distress, alert and oriented HEENT: AT/NC, sclerae anicteric, moist mucous membranes CHEST: Diminished breath sounds throughout, wearing nasal cannula CARDIAC: RRR, normal S1/S2, no appreciable murmurs ABDOMEN: Soft, normoactive bowel sounds, non-tender, non-distended EXT: Warm, no edema NEURO: Grossly intact, moves all extremities, no asterixis SKIN: No jaundice LABS: Lab Results Component Value Date Sodium 138 11/19/2018 Potassium 4.0 11/19/2018 Chloride 101 11/19/2018 CO2 24 11/19/2018 BUN 12 11/19/2018 Creatinine 0.79 11/19/2018 Glucose Lvl 68 11/19/2018 CBC Lab Results Component Value Date WBC 6.6 11/19/2018 Hemoglobin 7.7 (L) 11/19/2018 Hematocrit 24.1 (L) 11/19/2018 Platelets 273 11/19/2018 LFT's Lab Results Component Value Date Alk Phos 53 11/19/2018 AST 21 11/19/2018 Albumin 3.1 (L) 11/19/2018 Bili, Direct <0.1 11/19/2018 Total Bilirubin 0.2 11/19/2018 ALT 10 11/19/2018 Total Protein 5.1 (L) 11/19/2018 IMAGING: Reviewed in e[facility] ENDOSCOPY: Reviewed in [facility] IMPRESSION: 58 y.o. 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 Concern for upper GI bleed in the setting of significant EtOH use and NSAID use. NPO for EGD today. RECOMMENDATIONS: - Will need screening colo as an outpatient - NPO for EGD today - Please see endoscopic report for full recommendations - Keep T&S up to date - 2 large bore IVs - Transfuse for hgb>7 GI will sign off. The plan as outlined above was discussed with Dr. Dasilva. Jaclyn Epps MD Gastroenterology & Hepatology Fellow Pager #[phone] Associated attestation - Sandor Dasilva MD - 11/19/2018 7:05 PM EDT I have seen and evaluated the patient with Dr. Epps. I have reviewed the fellow's history during the encounter and I agree with the details as written above. My physical examination confirms the above findings. The assessment and plan were formulated in discussion with me at the time of the encounter and I agree with them as documented. Sandor Dasilva MD, ZAIRA [employer] down attendant Section of Gastroenterology and Hepatology Plan of [place] - Kristian Larios RN - 11/19/2018 5:41 AM EDT Problem: Patient Care Overview Goal: Plan of Care Review Outcome: Ongoing (Interventions Implemented as Appropriate) 11/18/181999 Coping/Psychosocial Plan Of Care Reviewed With patient OUTCOME EVALUATION NOTE: OUTCOME SUMMARY: - Cardiac: NSR ~ 70b/m. LR 500ml X 1 administered as bolus for SBP ~ 85 -90. - Respiratory: Stable. On NC 2L (baseline home level). Dessatting to low 80s on RA. - GI: No obvious signs of bleeding. No BM or N/V. Denies pain. NPO since midnight for possibility ofupper GI endoscopy. - Labs: Hb: 7.7 down from 8 (next check will be at 7:30). PLAN MOVING FORWARD: Endoscopy. INDIVIDUALIZED FALL PREVENTION INTERVENTIONS: Patient-specific fall risk factors per assessment: [current deficits]: Anemia. Assistance [level of assistance required for transfers and ambulation]: Turns self. Uses call light appropriately. Supervision [direct monitoring required during toileting and ADLs]: Room near nursing station. Surveillance [continuous indirect monitoring]: Kem monitor. Patient-specific fall prevention interventions for sensory deficits provided, if applicable: Bed alarm. CPG GOAL OUTCOME EVALUATION: Goal: Fall Prevention-Safe Patient Handling Outcome: Ongoing (Interventions Implemented as Appropriate) 11/18/181999 [place] Fall Risk History of Falling 0 Secondary Diagnosis 15 Ambulatory Aids 0 Intravenous Therapy/Heparin/Saline Lock 0 Gait/Transferring 0 Mental Status 0 Score 15 OTHER [place] Fall Risk Low Restraint Interventions Safety Promotion/Fall Prevention fall prevention program maintained;safety round/check completed Positioning Body Position independent Activity Activity Type activity adjusted per tolerance Goal: Infection Control Outcome: Ongoing (Interventions Implemented as Appropriate) 11/18/181999 Safety Interventions Isolation Precautions standard precautions maintained Infection Prevention single patient room provided Goal: Discharge Needs Assessment Outcome: Ongoing (Interventions Implemented as Appropriate) 11/19/18 05 Discharge Needs Assessment Concerns To Be Addressed no discharge needs identified Problem: Gastrointestinal Bleeding (Adult) Goal: Signs and Symptoms of Listed Potential Problems Will be Absent, Minimized or Managed (Gastrointestinal Bleeding) Signs and symptoms of listed potential problems will be absent, minimized or managed by discharge/transition of care (reference Gastrointestinal Bleeding (Adult) CPG). Outcome: Ongoing (Interventions Implemented as Appropriate) 11/19/18526 Gastrointestinal Bleeding Problems Assessed (GI Bleeding) all Problem: Skin Integrity Impairment, Risk/Actual (Adult) Goal: Skin Integrity/Wound Healing Patient will demonstrate the desired outcomes by discharge/transition of care. Outcome: Ongoing (Interventions Implemented as Appropriate) 11/19/18526 Skin Integrity Impairment, Risk/Actual (Adult) Skin Integrity/Wound Healing making progress toward outcome documented in this encounter Plan of Treatment Not on filedocumented as of this encounter Procedures Procedure Name Priority Date/Time Associated Comments Diagnosis HEMOGRAM STAT 11/20/2018 8:55 AM Results f or this EDT procedure are i n the results section. DIFFERENTIAL, STAT 11/20/2018 8:55 AM Results for this AUTOMATED EDT procedure are i n the results section. CBC (WITH DIFF) STAT 11/20/2018 8:55 AM EDT HEPATIC FUNCTION Routine 11/20/2018 3:45 AM Resul ts for this PANEL EDT procedure are i n the results section. BASIC METABOLIC PANEL Routine 11/20/2018 3:45 AM Results for this (NON-FASTING) EDT procedure are in the results section. EGD, UPPER GI 11/19/2018 2:18 PM anemia ENDOSCOPY EDT HEMOGRAM Routine 11/19/2018 7:00 AM Results f or this EDT procedure are i n the results section. DIFFERENTIAL, Routine 11/19/2018 7:00 AM Results for this AUTOMATED EDT procedure are i n the results section. RETICULOCYTE COUNT Routine 11/19/2018 7:00 AM Res ults for this EDT procedure are i n the results section. HEMOGRAM Routine 11/19/2018 1:45 AM Results f or this EDT procedure are i n the results section. DIFFERENTIAL, Routine 11/19/2018 1:45 AM Results for this AUTOMATED EDT procedure are i n the results section. APTT Routine 11/19/2018 1:45 AM Results f or this EDT procedure are i n the results section. PROTHROMBIN TIME Routine 11/19/2018 1:45 AM Resul ts for this EDT procedure are i n the results section. CBC (WITH DIFF) Routine 11/19/2018 1:45 AM EDT VITAMIN B12 Routine 11/19/2018 1:45 AM Results f or this EDT procedure are i n the results section. HEPATIC FUNCTION Routine 11/19/2018 1:45 AM Resul ts for this PANEL EDT procedure are i n the results section. BASIC METABOLIC PANEL Routine 11/19/2018 1:45 AM Results for this (NON-FASTING) EDT procedure are in the results section. ABORH RECHECK STATUS STAT 11/18/2018 8:30 PM R esults for this EDT procedure are i n the results section. HEMOGRAM STAT 11/18/2018 8:30 PM Results f or this EDT procedure are i n the results section. DIFFERENTIAL, STAT 11/18/2018 8:30 PM Results for this AUTOMATED EDT procedure are i n the results section. LACTATE, WHOLE BLOOD, STAT 11/18/2018 8:30 PM Results for this SEND TO LAB EDT procedure are i n ([facility] the results section. ABO/RH TYPING STAT 11/18/2018 8:30 PM Results for this EDT procedure are i n the results section. CBC (WITH DIFF) STAT 11/18/2018 8:30 PM EDT ANTIBODY SCREEN STAT 11/18/2018 8:30 PM Result s for this EDT procedure are i n the results section. TYPE AND SCREEN STAT 11/18/2018 8:30 PM ([facility]) EDT PHOSPHORUS STAT 11/18/2018 8:30 PM Results f or this EDT procedure are i n the results section. MAGNESIUM STAT 11/18/2018 8:30 PM Results f or this EDT procedure are i n the results section. HEPATIC FUNCTION Routine 11/18/2018 8:30 PM Resul ts for this PANEL EDT procedure are i n the results section. BASIC METABOLIC PANEL STAT 11/18/2018 8:30 PM Results for this (NON-FASTING) EDT procedure are in the results section. POCT GLUCOSE Routine 11/18/2018 6:56 PM Results f or this EDT procedure are i n the results section. documented in this encounter Results Differential, Automated (11/20/2018 8:55 AM EDT) athologist Signature Neutrophils % 53.4 % [facility] Neutr Abs (ANC) 2.55 1.70 - [facility] 6.10 [facility] x10(3)/[facility] LABORATORY Lymphocytes % 25.2 % [facility] Lymphocytes Abs 1.2 0.9 - 3.2 [facility] x10(3)/[facility] LABORATORY Monocytes % 14.3 % [facility] Monocyte Abs 0.7 0.3 - 0.9 [facility] x10(3)/[facility] LABORATORY Eosinophils % 5.7 % [facility] Eosinophils Abs 0.3 0.0 - 0.4 [facility] x10(3)/[facility] LABORATORY Basophils % 0.8 % [facility] Basophils Abs 0.0 0.0 - 0.1 [facility] x10(3)/[facility] LABORATORY Immature Gran % 0.60 % [facility] Comment: Immature granulocytes(IG's)percentage an d absolute count will include metamyelocytes, myelocytes, and promyelo cytes. Blood smears from CBCs yielding IG's will be scanned manually for concor dance. If this scan disagrees with the automated IG or if promyelocytes are not ed, a manual differential will be performed. Zenaida Gran Abs 0.03 0.00 - 0.04 x10(3)/[facility] LAB[facility]ATORY Specimen Anatomical Collection Method Collection Time Receive d Time (Source) Location / / Volume Laterality Blood specimen 11/20/2018 8:55 AM 019 9:04 (specimen) EDT AM EDT Resulting Agency Comment Spec In Lab Michael Werner MD HEMATOLOGY ORDERABLES Performing Organization Address City/State/[place] [address] (ABNORMAL) Hemogram (11/20/2018 8:55 AM EDT) [facility] gist Method Time Signature WBC 4.8 4.0 - 9.5 [facility] x10(3)/[facility] LABORATORY RBC 2.58 (L) 4.00 - [facility] 5.21 [facility] x10(6)/[facility] LABORATORY Hemoglobin 8.2 (L) 11.7 - [facility] 15.5 gm/dL [facility] Hematocrit 25.8 (L) 35.7 - [facility] 45.8 % [facility] MCV 100.0 (H) 82.6 - [facility]O CELSO 94.4 [facility] LABORATORY MCH 31.8 27.1 - [facility] 32.0 pg [facility] MCHC 31.8 31.7 - [facility] 35.0 gm/dL [facility] Platelets 348 145 - 357 [facility] x10(3)/[facility] LABORATORY RDWSD 71.6 (H) 37.0 - [facility] CEL[facility] 46.0 [facility] LABORATORY RDWCV 19.9 (H) 11.5 - [facility] MALLOYCELSO 14.1 % [facility] MPV 9.9 7.6 - 12.9 RICARDO MALLOYCELSO [facility] LABORATORY nRBC % Auto 0.0 % [facility] nRBC Abs Auto 0.000 0.000 - [facility] MALLOYCELSO 0.000 [facility] x10(3)/[facility] LABORATORY Specimen Anatomical Collection Method Collection Time Receive d Time (Source) Location / / Volume Laterality Blood specimen 11/20/2018 8:55 AM 019 9:04 (specimen) EDT AM EDT Resulting Agency Comment Spec In Lab Michael Werner MD HEMATOLOGY ORDERABLES Performing Organization Address City/State/[place] [address] (ABNORMAL) Hepatic Function Panel (11/20/2018 3:45 AM EDT) P athologist Signature Total Protein 5.4 (L) 6.1 - 8.0 [facility] gm/dL [facility] Albumin 3.5 3.2 - 5.2 [facility] gm/dL [facility] AST 21 0 - 30 R[facility] CELSO unit/L [facility] ALT 13 0 - 30 R[facility] CELSO unit/L [facility] Alk Phos 57 40 - 104 [facility] CEL[facility] unit/L [facility] Total 0.2 0.2 - 1.3 [facility] Bilirubin mg/dL [facility] Bili, Direct 0.1 0.0 - 0.3 [facility] mg/dL [facility] Specimen Anatomical Collection Method Collection Time Receive d Time (Source) Location / / Volume Laterality Blood specimen 11/20/2018 3:45 AM 019 3:55 (specimen) EDT AM EDT Resulting Agency Comment Spec In Lab Salo Matson MD CHEMISTRY ORDERABLES Performing Organization Address City/State/[place]IP [place] [address] (ABNORMAL) Basic Metabolic Panel (non-fasting) (11/20/2018 3:45 AM EDT) athologist Signature Glucose Lvl 63 (L) 65 - 199 [facility] mg/dL [facility] Comment: Diabetes: >=200 mg/dL plus symp toms BUN 10 8 - 18 mg/dL [facility] Creatinine 0.73 0.70 - 1.20 mg/dL [facility] Sodium 141 135 - 145 mmol/L [facility] Potassium 3.2 (L) 3.5 - 5.0 mmol/L [facility] Comment: Please note: ??Patients with WBC >100,00 0 may have falsely elevated Potassium levels. ??For accurate Potassium quantif ication in these patients send serum separator tube (gold top) for subsequent determinations. ??Contact the Clinical Chemistry Laboratory if there are any qu estions. Chloride 101 98 - 107 mmol/L [facility] CO2 24 22 - 31 mmol/L [facility] Anion Gap 16 (H) 5 - 15 mmol/L [facility] Calcium 8.6 8.5 - 10.5 mg/dL [facility] Estimated GFR 91 >=60 mL/min/1.73 m?? [facility] Comment: The eGFR was calculated using the CKD-EP I equation. As with all creatinine based estimates of kidney function, eGFR values calculated with the CKD-EPI equation are not accurate in patients wi th acute kidney failure, extremes of body mass or the acutely ill. [email or web address] eGFR 105 >=60 mL/min/1.73 m?? [facility] Comment: The eGFR was calculated using the CKD-EP I equation. As with all creatinine based estimates of kidney function, eGFR values calculated with the CKD-EPI equation are not accurate in patients wi th acute kidney failure, extremes of body mass or the acutely ill. [email or web address] Specimen Anatomical Collection Method Collection Time Receive d Time (Source) Location / / Volume Laterality Blood specimen 11/20/2018 3:45 AM 019 3:55 (specimen) EDT AM EDT Resulting Agency Comment Spec In Lab Salo Matson MD CHEMISTRY ORDERABLES Performing Organization Address City/State/ZIP [place] [address] (ABNORMAL) Differential, Automated (11/19/2018 7:00 AM EDT) P athologist Signature Neutrophils % 48.8 % [facility] Neutr Abs (ANC) 2.95 1.70 - [facility] 6.10 [facility] x10(3)/[facility] LABORATORY Lymphocytes % 32.8 % [facility] Lymphocytes Abs 2.0 0.9 - 3.2 [facility] x10(3)/[facility] LABORATORY Monocytes % 8.8 % [facility] Monocyte Abs 0.5 0.3 - 0.9 [facility] x10(3)/[facility] LABORATORY Eosinophils % 7.0 % [facility] LABORATORY Eosinophils Abs 0.4 0.0 - 0.4 [facility] x10(3)/[facility] LABORATORY Basophils % 1.3 % [facility] LABORATORY Basophils Abs 0.1 0.0 - 0.1 [facility] x10(3)/[facility] LABORATORY Immature Gran % 1.30 % [facility] LABORATORY Comment: Immature granulocytes(IG's)percentage an d absolute count will include metamyelocytes, myelocytes, and promyelo cytes. Blood smears from CBCs yielding IG's will be scanned manually for concor dance. If this scan disagrees with the automated IG or if promyelocytes are not ed, a manual differential will be performed. Zenaida Gran Abs 0.08 (H) 0.00 - 0.04 x10(3)/[facility] LABORATORY Specimen Anatomical Collection Method Collection Time Receive d Time (Source) Location / / Volume Laterality Blood specimen Venous Draw / 11/19/2018 7:00 AM 2018 (specimen) Unknown EDT 12:56 PM EDT Resulting Agency Comment Spec In Lab Ronit Glover MD HEMATOLOGY ORDERABLES Performing Organization Address City/[facility]/ZIP [facility] [place] [address] (ABNORMAL) Reticulocyte Count (11/19/2018 7:00 AM EDT) [facility] Method Time Signature Retic Ct % 8.5 (H) 0.7 - 2.5 [facility] % [facility] LABORATORY Retic Ct Abs 0.210 (H) 0.020 - [facility] 0.110 [facility] x10(6)/[facility] LABORATORY Immature Retic% 33.4 (H) 0.5 - [facility] [place] 13.8 % [facility] LABORATORY Reticulated Hgb 34.2 29.8 - [facility] 39.4 pg [facility] LABORATORY Specimen Anatomical Collection Method Collection Time Receive d Time (Source) Location / / Volume Laterality Blood specimen 11/19/2018 7:00 AM 019 7:19 (specimen) EDT AM EDT Resulting Agency Comment Spec In Lab Salo Matson MD HEMATOLOGY ORDERABLES Performing Organization Address [facility] [address] (ABNORMAL) Hemogram (11/19/2018 7:00 AM EDT) [facility] Method Time Signature WBC 6.1 4.0 - 9.5 [facility] x[facility](3[facility] LABORATORY RBC 2.47 (L) 4.00 - [facility] [place] 5.21 [facility] x10(6)/[facility] LABORATORY Hemoglobin 8.0 (L) 11.7 - [facility] [place] 15.5 gm/dL [facility] LABORATORY Hematocrit 24.4 (L) 35.7 - [facility] 45.8 % [facility] LABORATORY MCV 98.8 (H) 82.6 - [place] [place] 94.4 [facility] LABORATORY MCH 32.4 (H) 27.1 - [place] [place] 32.0 pg [facility] LABORATORY MCHC 32.8 31.7 - [facility] [place] 35.0 gm/dL [facility] LABORATORY Platelets 299 145 - 357 [facility] x10(3)/[facility] LABORATORY RDWSD 70.8 (H) 37.0 - [facility] [place] 46.0 [facility] LABORATORY RDWCV 20.5 (H) 11.5 - [facility] [place] 14.1 % [facility] LABORATORY MPV 11.0 7.6 - 12.9 [facility] LABORATORY nRBC % Auto 0.3 % [facility] LABORATORY nRBC Abs Auto 0.020 (H) 0.000 - [facility] 0.000 [facility] x10(3)/[facility] LABORATORY Specimen Anatomical Collection Method Collection Time Receive d Time (Source) Location / / Volume Laterality Blood specimen 11/19/2018 7:00 AM 019 7:19 (specimen) EDT AM EDT Resulting Agency Comment Spec In Lab Salo Matson MD HEMATOLOGY ORDERABLES Performing Organization Address City/State/ZIP Code Phon e Number [place] [id number] HOSPITAL LAB[address]ATORY Drive (ABNORMAL) Differential, Automated (11/19/2018 1:45 AM EDT) P athologist Signature Neutrophils % 50.3 % [facility] LABORATORY Neutr Abs (ANC) 3.31 1.70 - [place] 6.10 [facility] x10(3)/[facility] LABORATORY Lymphocytes % 31.9 % [facility] LABORATORY Lymphocytes Abs 2.1 0.9 - 3.2 [facility] x10(3)/[facility] LABORATORY Monocytes % 8.8 % [facility] LABORATORY Monocyte Abs 0.6 0.3 - 0.9 [facility] x10(3)/[facility] LABORATORY Eosinophils % 6.4 % [facility] LABORATORY Eosinophils Abs 0.4 0.0 - 0.4 [facility] x10(3)/[facility] LABORATORY Basophils % 0.9 % [facility] LABORATORY Basophils Abs 0.1 0.0 - 0.1 [facility] x10(3)/[facility] LABORATORY Immature Gran % 1.70 % [facility] LABORATORY Comment: Immature granulocytes(IG's)percentage an d absolute count will include metamyelocytes, myelocytes, and promyelo cytes. Blood smears from CBCs yielding IG's will be scanned manually for concor dance. If this scan disagrees with the automated IG or if promyelocytes are not ed, a manual differential will be performed. Zenaida Gran Abs 0.11 (H) 0.00 - 0.04 x10(3)/[facility] LABORATORY Specimen Anatomical Collection Method Collection Time Receive d Time (Source) Location / / Volume Laterality Blood specimen 11/19/2018 1:45 AM 019 1:59 (specimen) EDT AM EDT Resulting Agency Comment Spec In Lab Jessie Piña MD HEMATOLOGY ORDERABLES Performing Organization Address City/State/ZIP Code Phon e Number [place] [id number] HOSPITAL LABORATORY Drive (ABNORMAL) Hemogram (11/19/2018 1:45 AM EDT) [facility] gist Method Time Signature WBC 6.6 4.0 - 9.5 [facility] x10(3)/[facility] LABORATORY RBC 2.42 (L) 4.00 - [facility] 5.21 [facility] x10(6)/[facility] LABORATORY Hemoglobin 7.7 (L) 11.7 - [facility] 15.5 gm/dL [facility] LABORATORY Hematocrit 24.1 (L) 35.7 - [facility] 45.8 % [facility] LABORATORY MCV 99.6 (H) 82.6 - [facility] 94.4 [facility] LABORATORY MCH 31.8 27.1 - [place] 32.0 pg [facility] LABORATORY MCHC 32.0 31.7 - [facility] 35.0 gm/dL [facility] LABORATORY Platelets 273 145 - 357 [facility] x10(3)/[facility] LABORATORY RDWSD 66.5 (H) 37.0 - [place] [place] 46.0 [facility] LABORATORY RDWCV 20.0 (H) 11.5 - [place] [place] 14.1 % [facility] LABORATORY MPV 10.8 7.6 - 12.9 [facility] LABORATORY nRBC % Auto 0.5 % [facility] LABORATORY nRBC Abs Auto 0.030 (H) 0.000 - [place] [place] 0.000 [facility] x10(3)/[facility] LABORATORY Specimen Anatomical Collection Method Collection Time Receive d Time (Source) Location / / Volume Laterality Blood specimen 11/19/2018 1:45 AM 019 1:59 (specimen) EDT AM EDT Resulting Agency Comment Spec In Lab Jessie Piña MD HEMATOLOGY ORDERABLES Performing Organization Address City/State/ZIP Code Phon e Number [address] Vitamin B12 (11/19/2018 1:45 AM EDT) athologist Signature Vitamin B-12 449 232 - 1,245 [facility] pg/mL [facility] LABORATORY Specimen Anatomical Collection Method Collection Time Receive d Time (Source) Location / / Volume Laterality Blood specimen 11/19/2018 1:45 AM 019 1:59 (specimen) EDT AM EDT Resulting Agency Comment Spec In Lab Salo Matson MD CHEMISTRY ORDERABLES Performing Organization Address City/State/[place] [address] (ABNORMAL) Hepatic Function Panel (11/19/2018 1:45 AM EDT) P athologist Signature Total Protein 5.1 (L) 6.1 - 8.0 [facility] gm/dL [facility] LABORATORY Albumin 3.1 (L) 3.2 - 5.2 [facility] [place] gm/dL [facility] LABORATORY AST 21 0 - 30 [facility] unit/L [facility] LABORATORY ALT 10 0 - 30 [facility] [place] unit/L [facility] LABORATORY Alk Phos 53 40 - 104 [facility] [place] unit/L [facility] LABORATORY Total 0.2 0.2 - 1.3 [facility] Bilirubin mg/dL [facility] LABORATORY Bili, Direct <0.1 0.0 - 0.3 [facility] mg/dL [facility] LABORATORY Specimen Anatomical Collection Method Collection Time Receive d Time (Source) Location / / Volume Laterality Blood specimen 11/19/2018 1:45 AM 019 1:59 (specimen) EDT AM EDT Resulting Agency Comment Spec In Lab Salo Matson MD CHEMISTRY ORDERABLES Performing Organization Address City/State/[place] [address] Basic Metabolic Panel (non-fasting) (11/19/2018 1:45 AM EDT) P athologist Signature Glucose Lvl 68 65 - 199 [facility] mg/dL [facility] LABORATORY Comment: Diabetes: >=200 mg/dL plus symp toms BUN 12 8 - 18 mg/dL [facility] LABORATORY Creatinine 0.79 0.70 - 1.20 mg/dL [facility] LABORATORY Sodium 138 135 - 145 mmol/L [facility] LABORATORY Potassium 4.0 3.5 - 5.0 mmol/L [facility] LABORATORY Comment: Please note: ??Patients with WBC >100,00 0 may have falsely elevated Potassium levels. ??For accurate Potassium quantif ication in these patients send serum separator tube (gold top) for subsequent determinations. ??Contact the Clinical Chemistry Laboratory if there are any qu estions. Chloride 101 98 - 107 mmol/L [facility] LABORATORY CO2 24 22 - 31 mmol/L [facility] LABORATORY Anion Gap 13 5 - 15 mmol/L [facility] LABORATORY Calcium 8.5 8.5 - 10.5 mg/dL [facility] LABORATORY Estimated GFR 83 >=60 mL/min/1.73 m?? [facility] LABORATORY Comment: The eGFR was calculated using the CKD-EP I equation. As with all creatinine based estimates of kidney function, eGFR values calculated with the CKD-EPI equation are not accurate in patients wi th acute kidney failure, extremes of body mass or the acutely ill. [email or web address] [email or web address] eGFR 96 >=60 mL/min/1.73 m?? [facility] LABORATORY Comment: The eGFR was calculated using the CKD-EP I equation. As with all creatinine based estimates of kidney function, eGFR values calculated with the CKD-EPI equation are not accurate in patients wi th acute kidney failure, extremes of body mass or the acutely ill. [email or web address] Specimen Anatomical Collection Method Collection Time Receive d Time (Source) Location / / Volume Laterality Blood specimen 11/19/2018 1:45 AM 019 1:59 (specimen) EDT AM EDT Resulting Agency Comment Spec In Lab Salo Matson MD CHEMISTRY ORDERABLES Performing Organization Address City/[facility]/ZIP [facility] Phon e Number [address] (ABNORMAL) APTT (11/19/2018 1:45 AM EDT) P athologist Signature PTT 21 (L) 25 - 37 sec [facility] LABORATORY Comment: The PTT is NOT appropriate for heparin m onitoring. Use the Anti-Xa level for heparin monitoring (HEP UFH) or LMWH mon itoring (HEP LMW). A PTT less than 37 seconds generally indicates adequate hem ostasis. Specimen Anatomical Collection Method Collection Time Receive d Time (Source) Location / / Volume Laterality Blood specimen 11/19/2018 1:45 AM 019 1:59 (specimen) EDT AM EDT Resulting Agency Comment Spec In Lab Salo Matson MD HEMATOLOGY ORDERABLES Performing Organization Address City/[facility]/ZIP [place] [address] Prothrombin Time (11/19/2018 1:45 AM EDT) P athologist Signature PT 10.0 9.4 - 12.5 [facility] LABORATORY INR 0.9 [facility] LABORATORY Comment: An INR <2.0 indicates [...] Location / / Volume Laterality Blood specimen 11/19/2018 1:45 AM 019 1:59 (specimen) EDT AM EDT Resulting Agency Comment Spec In Lab Salo Matson MD HEMATOLOGY ORDERABLES Performing Organization Address City/[facility]/ZIP Code Phon e Number [address] ABORH Recheck Status (11/18/2018 8:30 PM EDT) [facility] Method Time Signature ABORH Type Completed [facility] LABORATORY Specimen Anatomical Collection Method Collection Time Receive d Time (Source) Location / / Volume Laterality Blood specimen 11/18/2018 8:30 PM 019 8:48 (specimen) EDT PM EDT Resulting Agency Comment Spec In Lab Concepcion Lopez MD BLOOD BANK ORDERABLES Performing Organization Address City/[facility]/ZIP [place] [address] Antibody screen (11/18/2018 8:30 PM EDT) [facility] Method Time Signature Ab Screen Negative [facility] LABORATORY Expires at 11/21/2018 [facility] [id number] on: [facility] LABORATORY Specimen Anatomical Collection Method Collection Time Receive d Time (Source) Location / / Volume Laterality Blood specimen 11/18/2018 8:30 PM 019 8:48 (specimen) EDT PM EDT Resulting Agency Comment Spec In Lab Concepcion Lopez MD BLOOD BANK ORDERABLES Performing Organization Address City/[facility]/ZIP Code Phon e Number [address] ABO/Rh Typing (11/18/2018 8:30 PM EDT) P athologist Signature ABORh Type O Pos [facility] LABORATORY Specimen Anatomical Collection Method Collection Time Receive d Time (Source) Location / / Volume Laterality Blood specimen 11/18/2018 8:30 PM 019 8:48 (specimen) EDT PM EDT Resulting Agency Comment Spec In Lab Concepcion Lopez MD BLOOD BANK ORDERABLES Performing Organization Address City/State/Z[place] [address] (ABNORMAL) Differential, Automated (11/18/2018 8:30 PM EDT) P athologist Signature Neutrophils % 58.6 % [facility] LABORATORY Neutr Abs (ANC) 4.20 1.70 - [facility] 6.10 [facility] x10(3)/[facility] LABORATORY Lymphocytes % 25.9 % [facility] LABORATORY Lymphocytes Abs 1.9 0.9 - 3.2 [facility] x10(3)/[facility] LABORATORY Monocytes % 7.9 % [facility] LABORATORY Monocyte Abs 0.6 0.3 - 0.9 [facility] x10(3)/[facility] LABORATORY Eosinophils % 5.2 % [facility] LABORATORY Eosinophils Abs 0.4 0.0 - 0.4 [facility] x10(3)/[facility] LABORATORY Basophils % 1.0 % [facility] LABORATORY Basophils Abs 0.1 0.0 - 0.1 [facility] x10(3)/[facility] LABORATORY Immature Gran % 1.40 % [facility] LABORATORY Comment: Immature granulocytes(IG's)percentage an d absolute count will include metamyelocytes, myelocytes, and promyelo cytes. Blood smears from CBCs yielding IG's will be scanned manually for concor dance. If this scan disagrees with the automated IG or if promyelocytes are not ed, a manual differential will be performed. Zenaida Gran Abs 0.10 (H) 0.00 - 0.04 x10(3)/[facility] LABORATORY Specimen Anatomical Collection Method Collection Time Receive d Time (Source) Location / / Volume Laterality Blood specimen 11/18/2018 8:30 PM 019 8:44 (specimen) EDT PM EDT Resulting Agency Comment Spec In Lab Concepcion Lopez MD HEMATOLOGY ORDERABLES Performing Organization Address City/State/Z[place] [address] (ABNORMAL) Hemogram (11/18/2018 8:30 PM EDT) Patholo gist Method Time Signature WBC 7.2 4.0 - 9.5 [facility](3[facility] LABORATORY RBC 2.50 (L) 4.00 - [facility] [place] 5.21 [facility] x10(6)/[facility] LABORATORY Hemoglobin 8.0 (L) 11.7 - [facility] 15.5 gm/dL [facility] LABORATORY Hematocrit 25.0 (L) 35.7 - [facility] 45.8 % [facility] LABORATORY MCV 100.0 (H) 82.6 - [facility] 94.4 [facility] LABORATORY MCH 32.0 27.1 - [facility] 32.0 pg [facility] LABORATORY MCHC 32.0 31.7 - [facility] 35.0 gm/dL [facility] LABORATORY Platelets 286 145 - 357 [facility] x10(3)/[facility] LABORATORY RDWSD 64.2 (H) 37.0 - [facility] 46.0 [facility] LABORATORY RDWCV 19.7 (H) 11.5 - [facility] 14.1 % [facility] LABORATORY MPV 11.5 7.6 - 12.9 [facility] LABORATORY nRBC % Auto 0.6 % [facility] LABORATORY nRBC Abs Auto 0.040 (H) 0.000 - [facility] [place] 0.000 [facility] x10(3)/[facility] LABORATORY Specimen Anatomical Collection Method Collection Time Receive d Time (Source) Location / / Volume Laterality Blood specimen 11/18/2018 8:30 PM 019 8:44 (specimen) EDT PM EDT Resulting Agency Comment Spec In Lab Concepcion Lopez MD HEMATOLOGY ORDERABLES Performing Organization Address City/State/Z[place] [address] (ABNORMAL) Hepatic Function Panel (11/18/2018 8:30 PM EDT) Analysis Performed At Patho logist Time Signature Total Protein 5.7 (L) 6.1 - 8.0 [facility] gm/dL [facility] LABORATORY Albumin 3.5 3.2 - 5.2 [facility] gm/dL [facility] LABORATORY AST Not Perf 0 - 30 [facility] LABORATORY Comment: Unable to quantitate due to sample hemol ysis. ??Sample redraw suggested. Called by: CSAdrianna, Read back by: Harry solorzano, Date/Time:11/18/18 22:08. ALT 11 0 - 30 unit/L [facility] LABORATORY Alk Phos 60 40 - 104 unit/L [facility] LABORATORY Total Bilirubin 0.4 0.2 - 1.3 mg/dL [facility] LABORATORY Bili, Direct 0.1 0.0 - 0.3 mg/dL [facility] LABORATORY Specimen Anatomical Collection Method Collection Time Receive d Time (Source) Location / / Volume Laterality Blood specimen 11/18/2018 8:30 PM 019 8:44 (specimen) EDT PM EDT Resulting Agency Comment Spec In Lab Salo Matson MD CHEMISTRY ORDERABLES Performing Organization Address City/State/ZIP Code Phon e Number [address] Phosphorus (11/18/2018 8:30 PM EDT) P athologist Signature Phosphorus 3.8 2.5 - 4.5 [facility] mg/dL [facility] LABORATORY Specimen Anatomical Collection Method Collection Time Receive d Time (Source) Location / / Volume Laterality Blood specimen 11/18/2018 8:30 PM 019 8:44 (specimen) EDT PM EDT Resulting Agency Comment Spec In Lab Salo Matson MD CHEMISTRY ORDERABLES Performing Organization Address City/State/ZIP Code Phon e Number [address] Magnesium (11/18/2018 8:30 PM EDT) P athologist Signature Magnesium 1.00 0.69 - 1.07 [facility] mmol/L [facility] LABORATORY Specimen Anatomical Collection Method Collection Time Receive d Time (Source) Location / / Volume Laterality Blood specimen 11/18/2018 8:30 PM 019 8:44 (specimen) EDT PM EDT Resulting Agency Comment Spec In Lab Salo Matson MD CHEMISTRY ORDERABLES Performing Organization Address City/State/Z[place] [address] (ABNORMAL) Basic Metabolic Panel (non-fasting) (11/18/2018 8:30 PM EDT) P athologist Signature Glucose Lvl 82 65 - 199 [facility] mg/dL [facility] LABORATORY Comment: Diabetes: >=200 mg/dL plus symp toms BUN 13 8 - 18 mg/dL [facility] LABORATORY Creatinine 0.89 0.70 - 1.20 mg/dL [facility] LABORATORY Sodium 137 135 - 145 mmol/L [facility] LABORATORY Potassium 4.5 3.5 - 5.0 mmol/L [facility] LABORATORY Comment: Please note: ??Patients with WBC >100,00 0 may have falsely elevated Potassium levels. ??For accurate Potassium quantif ication in these patients send serum separator tube (gold top) for subsequent determinations. ??Contact the Clinical Chemistry Laboratory if there are any qu estions. Chloride 100 98 - 107 mmol/L [facility] LABORATORY CO2 24 22 - 31 mmol/L [facility] LABORATORY Anion Gap 13 5 - 15 mmol/L [facility] LABORATORY Calcium 8.4 (L) 8.5 - 10.5 mg/dL [facility] LABORATORY Estimated GFR 71 >=60 mL/min/1.73 m?? [facility] LABORATORY Comment: The eGFR was calculated using the CKD-EP I equation. As with all creatinine based estimates of kidney function, eGFR values calculated with the CKD-EPI equation are not accurate in patients wi th acute kidney failure, extremes of body mass or the acutely ill. [email or web address] eGFR 83 >=60 mL/min/1.73 m?? [facility] LABORATORY Comment: The eGFR was calculated using the CKD-EP I equation. As with all creatinine based estimates of kidney function, eGFR values calculated with the CKD-EPI equation are not accurate in patients wi th acute kidney failure, extremes of body mass or the acutely ill. [email or web address] Specimen Anatomical Collection Method Collection Time Receive d Time (Source) Location / / Volume Laterality Blood specimen 11/18/2018 8:30 PM 019 8:44 (specimen) EDT PM EDT Resulting Agency Comment Spec In Lab Salo Matson MD CHEMISTRY ORDERABLES Performing Organization Address City/[facility]/[place] [address] Lactate, whole blood, send to lab (Leb/CGP) (11/18/2018 8:30 PM EDT) P athologist Signature Lactate WB 1.0 0.5 - 2.2 [facility] mmol/L [facility] LABORATORY Specimen Anatomical Collection Method Collection Time Receive d Time (Source) Location / / Volume Laterality Blood specimen 11/18/2018 8:30 PM 019 8:43 (specimen) EDT PM EDT Resulting Agency Comment Spec In Lab Salo Matson MD CHEMISTRY ORDERABLES Performing Organization Address City/[facility]/ZIP Code Phon e Number [address] POCT Glucose (11/18/2018 6:56 PM EDT) P athologist Signature POC Glucose 82 65 - 199 [facility] mg/dL [facility] LABORATORY Comment: Supplemental ranges: <140 mg/dL before meals <180 mg/dL all other times of the day Specimen Anatomical Collection Method Collection Time Receive d Time (Source) Location / / Volume Laterality Blood specimen 11/18/2018 6:56 PM 019 6:56 (specimen) EDT PM EDT Salo Matson MD POINT OF CARE TEST ORDERABLE S Performing Organization Address City/[facility]/ZIP [place] [address] documented in this encounter Visit Diagnoses Diagnosis Hypotension Hypotension, unspecified Acute upper GI bleed Hemorrhage of gastrointestinal tract, un specified Acute blood loss anemia Acute posthemorrhagic anemia Chronic respiratory failure with hypoxia Chronic respiratory failure documented in this encounter Admitting Diagnoses Diagnosis Hypotension Hypotension, unspecified documented in this encounter Administered Medications Inactive Administered Medications - up to 3 most recent administrations Medication Order MAR Action Action Date Dose Rate Site lactated Ringers 500 mL IV bolus New Bag 11/19/2018 2:33 AM EDT Intravenous, ONCE, 1 dose, On Sat11/19/18 at 0245 pantoprazole (PROTONIX) injection 40 mg Given 11/20/2018 8:30 AM EDT 40 mg 40 mg, Intravenous, 2 TIMES DAILY, First dose (after last modification) on Sat11/18/18 at 2100, Until Discontinued Given 11/19/2018 9:22 PM EDT 40 mg Given 11/19/2018 9:19 AM EDT 40 mg phenol 1.4% (CHLORASEPTIC) spray 1 spray Given 11/19/2018 9:21 PM EDT 1 spray 1 spray, Oral, EVERY 4 HOURS PRN, Starting on Sat11/19/18 at 2010, Until Sat11/20/18 at 1705, Irritation, Routine potassium chloride (K-DUR/KLOR-CON) extended Given 08/2018 6:11 AM EDT 40 mEq release tablet 40 mEq 40 mEq, Oral, ONCE, 1 dose, On Sat11/20/18 at 0615, 20 mEq tablet may be dissolved in water for administration, Routine potassium chloride (K-DUR/KLOR-CON) extended Given 08/2018 12:17 PM EDT 40 mEq release tablet 40 mEq 40 mEq, Oral, ONCE, 1 dose, On Sat11/20/18 at 1045, 20 mEq tablet may be dissolved in water for administration, Routine sertraline (ZOLOFT) tablet 100 mg Given 11/20/2018 8:29 AM EDT 100 mg 100 mg, Oral, DAILY, First dose on Sat11/19/18 at 0900, Until Discontinued, Routine Given 11/19/2018 9:19 AM EDT 100 mg simvastatin (ZOCOR) tablet 20 mg Given 11/19/2018 5:18 PM EDT 20 mg 20 mg, Oral, EVERY EVENING, First dose on Sat11/19/18 at 1700, Until Discontinued, Routine sirolimus (RAPAMUNE) tablet 2 mg Given 11/20/2018 8:30 AM EDT 2 mg 2 mg, Oral, DAILY, First dose on Sat11/19/18 at 0900, Until Discontinued, DO NOT CRUSH OR OPEN, Routine Given 11/19/2018 9:19 AM EDT 2 mg sodium chloride 0.9 % (flush) flush 5 mL Given 11/20/2018 5:00 AM EDT 5 mLs 5 mL, Intravenous, 2 TIMES DAILY, First dose on Sat11/18/18 at 2100, Until Discontinued, Routine Given 11/19/2018 9:23 PM EDT 5 mLs Given 11/19/2018 9:20 AM EDT 5 mLs thiamine (B-1) injection 100 mg Given 11/19/2018 9:19 AM EDT 100 mg 100 mg, Intravenous, DAILY, First dose on Sat11/19/18 at 0900, Until Discontinued, Doses of 100 mg are to be administered as IV push over 5 minutes. Doses of 200 mg or more should be mixed in 50 mL 0.9% Sodium Chloride and infused over 30 minutes. thiamine (Vitamin B-1) tablet 100 mg Given 11/20/2018 8:29 AM EDT 100 mg 100 mg, Oral, DAILY, First dose on Sat11/20/18 at 0900, Until Discontinued, Routine documented in this encounter Active and Recently Administered Medications Times are shown in EDT. Scheduled Medication Order 11/18/2018 11/19/2018 11/20/2018 lactated Ringers 500 mL IV bolus (COMPLETED) 0233 (New Bag - Provider: Kristian Larios RN) Intravenous, ONCE, 1 dose, Sat11/19/18 at 0245 pantoprazole (PROTONIX) injection 40 mg 2049 (Given - Provider: Kristian Larios RN) 09 (Given - Provider: Kellie Austin)1338 ([facility] Hold - Provider: Admin Adt - Reason: Transfer to a Procedural area)1541 ([facility] Unhold - Provider: Admin Adt)2121 (Given - Provider: Samantha Shoemaker, VIOLA) 0830 (Given - Provider: Anabela Martínez RN) 40 mg, Intravenous, 2 TIMES DAILY, First dose on Sat11/18/18 at 2100, Until Discontinued potassium chloride (K-DUR/KLOR-CON) extended release tablet 40 mEq (COMPLETED) 0611 (Given - Provider: Samantha morales RN) 40 mEq, Oral, ONCE, 1 dose, Carine 11/20/18 a t 0615, 20 mEq tablet may be dissolved in water for administration, Routine potassium chloride (K-DUR/KLOR-CON) extended release tablet 40 mEq (COMPLETED) 1217 (Given - Provider: Anabela Martínez, VIOLA) 40 mEq, Oral, ONCE, 1 dose, Carine 11/20/18 a t 1045, 20 mEq tablet may be dissolved in water for administration, Routine sertraline (ZOLOFT) tablet 100 mg 09 ( Given - Provider: Mary Thayer, VIOLA)1338 ([facility] Hold - Provider: Admin Adt - Reason: Transfer to a Procedural area)154 ([facility] Unhold - Provider: Admin Adt) 0829 (Given - Provider: Anabela Martínez, VIOLA) 100 mg, Oral, DAILY, First dose on Sat at 0900, Until Discontinued, Routine simvastatin (ZOCOR) tablet 20 mg 133 ([facility] Hold - Provider: Admin Adt - Reason: Transfer to a Procedural area)154 ([facility] Unhold - Provider: Admin Adt)1718 (Given - Provider: Mary Thayer, VIOLA) 20 mg, Oral, EVERY EVENING, First dose o n Sat11/19/18 at 1700, Until Discontinued, Routine sirolimus (RAPAMUNE) tablet 2 mg 918 (G iven - Provider: Mary Thayer RN)1338 ([facility] Hold - Provider: Admin Adt - Reason: Transfer to a Procedural area)1541 ([facility] Unhold - Provider: Admin Adt) 0830 (Given - Provider: Anabela Martínez, VIOLA) 2 mg, Oral, DAILY, First dose on 11/19 at 0900, Until Discontinued, DO NOT CRUSH OR OPEN, Routine sodium chloride 0.9 % (flush) flush 5 mL 2050 (Given - Provider: Kristian Larios RN) 09 (Given - Provider: Mary Thayer, R N)1338 ([facility] Hold - Provider: Admin Adt - Reason: Transfer to a Procedural area)1541 ([facility] Unhold - Provider: Admin Adt)212 (Given - Provider: Samantha E Shoemaker, RN) 0500 (Given - Provider: Anabela Martínez RN) 5 mL, Intravenous, 2 TIMES DAILY, First dose on Sat11/18/18 at 2100, Until Discontinued, Routine thiamine (B-1) injection 100 mg (CANCELED) 918 (Given - Provider: Mary Thayer RN)1338 ([facility] Hold - Provider: Admin Adt - Reason: Transfer to a Procedural area)1541 ([facility] Unhold - Provider: Admin Adt) 100 mg, Intravenous, DAILY, First dose o n Sat11/19/18 at 0900, Until Discontinued, Doses of 100 mg are to be administered as IV push over 5 minutes. Doses of 200 mg or more should be mixed in 50 mL 0.9% Sodium Chloride and infused over 30 minutes. thiamine (Vitamin B-1) tablet 100 mg 828 (Given - Provider: Anabela Martínez RN) 100 mg, Oral, DAILY, First dose on Sat at 0900, Until Discontinued, Routine PRN Medication Order 11/18/2018 11/19/2018 11/20/2018 albuterol (PROVENTIL) nebulizer solution 2.5 mg 1338 ([facility] Hold - Provider: Admin Adt - Reason: Transfer to a Procedural area)1541 ([facility] Unhold - Provider: Admin Adt) 2.5 mg, Nebulization, EVERY 2 HOURS PRN, Starting Sat11/18/18 at 2014, Until Sat11/20/18 at 1705, Wheezing, Routine ipratropium-albuterol (DUONEB) 0.5 mg-3 mg(2.5 mg base)/3 mL nebulizer solution 3 mL 1338 ([facility] Hold - Provider: Wilda dmin Adt - Reason: Transfer to a Procedural area)1541 ([facility] Unhold - Provider: Admin Adt) 3 mL, Nebulization, EVERY 6 HOURS PRN, S tarting Sat11/18/18 at 2014, Until Sat11/20/18 at 1705, Wheezing, Routine lidocaine (XYLOCAINE) 10 mg/mL (1 %) injection 3 mg 1338 ([facility] Hold - Provider: Admin Adt - Reason: Transfer to a Procedural area)1541 ([facility] Unhold - Provider: Admin Adt) 3 mg (0.3 mL), Subcutaneous, ONCE PRN, 1 dose, Starting Sat11/18/18 at 2014, Until Carine 11/20/18 at 1705, for discomfort with PIV insertion, Routine phenol 1.4% (CHLORASEPTIC) spray 1 spray 2120 (Given - Provider: Samantha Shoemaker, RN - Comment: for sore throat) 1 spray, Oral, EVERY 4 HOURS PRN, Starti ng Wed 11/19/18 at 2009, Until Carine 11/20/18 at 1705, Irritation, Routine sodium chloride 0.9 % (flush) flush 5-20 mL 1338 ([facility] Hold - Provider: Admin Adt - Reason: Transfer to a Procedural area)1541 ([facility] Unhold - Provider: Admin Adt) 5-20 mL, Intravenous, EVERY 1 MIN PRN, S tarting 11/18/18 at 2014, Until Carine 11/20/18 at 1705, flush, Flush pertains to all indwelling lines. Flush per protocol found in the job aid using the link provided on this medication record., Routine documented in this encounter Care Teams Diaphragm Builder Relationship Specialty Start Date End Date Magdalene Lin PA PCP - General 09/05/[address] [place] [address] documented as of this encounter
--- OUTSIDE RECORDS SUMMARY | 2022-02-10 06:09 | XMS_ITS | Encounter Summary ---
:1960 Author Organization [facility] [place] [address] Care Team Providers Name Role Phone Magdalene Lin Primary Care Provider Encounter Details Date Type Department Care Team Description 08/05/2021 Ancillary Procedure Radiology Library at [facility] [place] Argueta [facility] [address] [place] [address] [place] [address] [phone] (Wo rk) Social History Tobacco Use Types [...] Diagnosis Comme nts FILM LIBRARY Routine 08/05/2021 7:59 PM Results f or this STORAGE ONLY CT EDT procedure ar e in SPINE the results section. documented in this encounter Results Film Library- Storage Only CT Spine (08/05/2021 7:59 PM EDT) Specimen (Source) Anatomical Location Collection Method / Collectio n Time Received Time / Laterality Volume Narrative [facility] - 08/05/2021 7:59 PM EDT This exam is auto-finalizing. It's purpo se is for storage only. Magdalene HOUGH IMG FILM LIBRARY ORDERA BLES Performing Organization Address City/State/ZIP Code Phon e Number [place], [place] documented in this encounter Visit Diagnoses Not on filedocumented in this encounter Care Teams Photographer'S Assistant Relationship Specialty Start Date End Date Magdalene Lin PA PCP - General 09/05/[address] [facility] Adrianna [facility] [place] [address] documented as of this encounter
--- OUTSIDE RECORDS SUMMARY | 2022-02-10 06:09 | XMS_ITS | Encounter Summary ---
:1960 Author Organization [place] [address] Care Team Providers Name Role Phone Magdalene Lin Primary Care Provider Reason for Visit Reason Onset Date Comments Other 07/01/2020 Appointments Encounter Details Date Type Department Care Team Description 07/01/2020 Telephone Hospitalist Jeanie Conti, Other (Appointments) [place] [address] Social History Tobacco Use Types Packs/Day [...] this encounter Miscellaneous Notes Telephone Encounter - Jeanie Conti CMA - 07/01/2020 1:31 PM EST Scheduled appointment with account support associate for 07/15 at 8:15am at [facility]. Patient will have prescriptions sent to [facility] in [place], [place]. Patient is new to this pharmacy and they are unsure until they see verification of insurance how much scripts will cost. documented in this encounter Plan of Treatment Not on filedocumented as of this encounter Visit Diagnoses Not on filedocumented in this encounter Care Teams Brim Plater Relationship Specialty Start Date End Date Magdalene Lin PA PCP - General 09/05/[address] [place] [address] documented as of this encounter
--- OUTSIDE RECORDS SUMMARY | 2022-02-10 06:10 | XMS_ITS | Encounter Summary ---
:1960 Author Organization [facility] [place] [address] Care Team Providers Name Role Phone Magdalene Lin Primary Care Provider [phone] Reason for Visit Auth/Cert Specialty Diagnoses / Procedures Referred By Contact Refer red To Contact Diagnoses Hypotension GI BLEED Procedures EMERGENCY IPI Referral ID Status Reason Start Date Expiration Date Visits Requ ested Visits Authorized [id number] 1 1 Encounter Details Date Type Department Care Team Description 11/19/2018 Surgery Gastroenterology at [facility] Sandor Dasilva MD EGD, UPPER GI [facility] D [facility] [place] [phone] [place], [place] [address] Social History Tobacco Use Types Packs/Day Years Used Date Never Smoker Smokeless Tobacco: Never Used Alcohol Use Standard Drinks/Week Comments Yes 1 (1 standard drink = 0.6 oz pure alcoho l) Sex Assigned at Date Recorded Not on file documented as of this encounter Last Filed Vital Signs Vital Sign Reading Time Taken Comments Blood Pressure 115/71 11/19/2018 1:39 PM EDT Pulse 81 11/19/2018 1:39 PM EDT Temperature 36.6 ??C (97.8 ??F) 11/19/2018 1:39 PM EDT Respiratory Rate 18 11/19/2018 1:39 PM EDT Oxygen Saturation 100% 11/19/2018 1:39 PM EDT Inhaled Oxygen Concentration - - Weight - - Height 160 cm (5' 3) 11/18/2018 8:35 PM EDT Body Mass Index - - documented in this encounter Discharge Summaries Michael Werner MD - 11/20/2018 11:19 AM EDT Discharge Summary Patient Name: Paradise Abel Patient Age: 58 y.o. Language: Italian Race: White Ethnicity: Unknown or Unavailable Admit [...] your inpatient physician through the [facility] House Fellow . Issues after hours and on weekends [...] of Presentation: Patient was initially transferred to [facility] critical care service from [facility] ED for hypotension (60-70's/30's) in setting of [...] Data: Labs: Recent Labs 11/20/18 0855 11/19/18 0700 11/19/18144 WBC 4.8 6.1 6.6 HGB 8.2* 8.0* 7.7* HCT 25.8* 24.4* 24.1* PLATELET 348 299 273 Recent Labs 11/20/18 03411/19/1814411/18/182029 NA 141 138 137 K 3.2* 4.0 4.5 CL 101 101 100 CO2 24 24 24 BUN 10 12 13 CREATININE 0.73 0.79 0.89 Recent Labs 11/20/18 0345 11/19/1814411/18/18 2030 AST 21 21 Not Perf ALT 13 10 11 ALKPHOS 57 53 60 BILITOT 0.2 0.2 0.4 BILIDIR 0.1 <0.1 0.1 Recent Labs 11/20/18 0345 11/19/18 01411/18/182029 CALCIUM 8.6 8.5 8.4* PHOS -- -- 3.8 Recent Labs 11/19/18144 PT 10.0 INR 0.9 PTT 21* No [...] appointment next week Your Inpatient Doctor(s) at [facility]: Alphonso General Instructions None Discharge References/Attachments None [...] appointment next week Your Inpatient Doctor(s) at [facility]: Alphonso documented in this encounter Medications at [...] female w FOLEY p/w fatigue. Transferred from [place] for Hgb 5 w hypotension. Active Problems: [...] or ulcerations noted Labs Recent Labs 11/19/18 0700 11/19/1814411/18/182029 WBC 6.1 6.6 7.2 HGB 8.0* 7.7* [...] -- 1.00 PHOS -- 3.8 Recent Labs 11/19/18144 INR 0.9 PT 10.0 PTT 21* Recent Labs 11/18/18 1856 POCGLU 82 Imaging/Studies: CT A/P - pending Assessment: 58 y.o. female w FOLEY transferred from [place] w fatigue, hypotension, and Hgb 5. Pt [...] Concepcion Lopez MD, PGY-2 Critical Care (pgr. [phone]) Associated attestation - Salo Matson MD - [...] Pain HPI Patient was initially transferred to [facility] critical care service from [facility] ED for hypotension (60-70's/30's) in setting of [...] file Gets together: Not on file Attends jewish service: Not on file Active member of [...] CN II-XII intact Labs Recent Labs 11/19/18 0700 11/19/1814411/18/182029 WBC 6.1 6.6 7.2 HGB 8.0* 7.7* [...] w PMHx of FOLEY who presented to [facility] ICU for anemia (5) in setting of [...] Code Parveen Augustin MD PGY1, Internal Medicine #[id number] 11/19/2018 Attending Staff Admission Documentation I certify [...] AND PHYSICAL Patient Name: Paradise Abel MR#: [id number] : [id number] CC: 58 y.o. Female with increase dyspnea on exertion and fatigue HISTORY OF PRESENT ILLNESS: Paradise Abel () is a 58 y.o. 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 Given concern for UGIB and no EGD available at [facility] patient was resuscitated with 2 units of pRBC's, given a dose of IV pantoprazole, and transferred to [facility] for specialty care. On arrival to the [...] MD Internal Medicine PGY-2 Blue Team, Pager [phone] Associated attestation - Salvador Kinney MD - [...] Handling Outcome: Ongoing (Interventions Implemented as Appropriate) 11/19/18199911/20/1811/20/18 0400 Genao Fall Risk History of Falling [...] Control Outcome: Ongoing (Interventions Implemented as Appropriate) 11/19/181999 Safety Interventions Isolation Precautions standard precautions maintained [...] progress toward outcome Plan of Care - BrittaniTinoDieudonne Vilma, PT - 11/19/2018 11:46 AM EDT Physical [...] in this evaluation. 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 Pager: [phone] TEETEE NASCIMENTO OT 11/19/2018 Occupational Therapy Rehabilitation Department Consult Note - Jaclyn Epps MD - 11/19/2018 6:24 AM EDT GASTROENTEROLOGY & HEPATOLOGY CONSULTATION Initial Consult Note Requesting Provider: Salo Matson MD REASON FOR CONSULTATION Upper GI bleed HISTORY OF PRESENT ILLNESS Paradise Abel is a 58 y.o. 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 She reports having dark stools and epigastric abdominal discomfort since starting amoxicillin for dental abscess last - + BM daily which persisted over the weekend. [...] She was sent to the ED in [place] and noted to have a macrocytic anemia with Hgb 5. She was transfused 2 u pRBCs and transferred to [facility] MICU for additional management. She was given [...] file Gets together: Not on file Attends jewish service: Not on file Active member of [...] home O2 who presented in transfer from [facility] with hypotension, melena, and Hgb 5 and [...] Epps MD Gastroenterology & Hepatology Fellow Pager #[phone] Associated attestation - Sandor Dasilva MD - [...] them as documented. Sandor Dasilva MD, ZAIRA Rn Clinicianfirearms model maker Section of Gastroenterology and Hepatology Plan of Care - Kristian Larios RN - 11/19/2018 5:41 [...] Assessment Outcome: Ongoing (Interventions Implemented as Appropriate) 11/19/18526 Discharge Needs Assessment Concerns To Be Addressed [...] care. Outcome: Ongoing (Interventions Implemented as Appropriate) 11/19/18 0527 Skin Integrity Impairment, Risk/Actual (Adult) Skin Integrity/Wound [...] TO LAB EDT procedure are i n ([facility] the results section. ABO/RH TYPING STAT 11/18/2018 8:30 PM Results for this EDT procedure are i n the results section. CBC (WITH DIFF) STAT 11/18/2018 8:30 PM EDT ANTIBODY SCREEN STAT 11/18/2018 8:30 PM Result s for this EDT procedure are i n the results section. TYPE AND SCREEN STAT 11/18/2018 8:30 PM ([facility]/CG/RAIZA) EDT PHOSPHORUS STAT 11/18/2018 8:30 PM Results [...] Results Differential, Automated (11/20/2018 8:55 AM EDT) P athologist Signature Neutrophils % 53.4 % [facility] Neutr Abs (ANC) 2.55 1.70 - [facility] 6.10 [facility] x10(3)/[facility] LABORATORY Lymphocytes % 25.2 % [facility] Lymphocytes Abs 1.2 0.9 - 3.2 [facility] x10(3)/[facility] LABORATORY Monocytes % 14.3 % [facility] Monocyte Abs 0.7 0.3 - 0.9 [facility] x10(3)/[facility] LABORATORY Eosinophils % 5.7 % [facility] Eosinophils Abs 0.3 0.0 - 0.4 [facility] x10(3)/[facility] LABORATORY Basophils % 0.8 % [facility] Basophils Abs 0.0 0.0 - 0.1 [facility] x10(3)/[facility] LABORATORY Immature Gran % 0.60 % [facility] Comment: Immature granulocytes(IG's)percentage an d absolute count will include metamyelocytes, myelocytes, and promyelo cytes. Blood smears from CBCs yielding IG's will be scanned manually for concor dance. If this scan disagrees with the automated IG or if promyelocytes are not ed, a manual differential will be performed. Zenaida Gran Abs 0.03 0.00 - 0.04 x10(3)/[facility] LABORATORY Specimen Anatomical Collection Method Collection Time Receive d Time (Source) Location / / Volume Laterality Blood specimen 11/20/2018 8:55 AM 019 9:04 (specimen) EDT AM EDT Resulting Agency Comment Spec In Lab Michael Werner MD HEMATOLOGY ORDERABLES Performing Organization Address City/State/[place] [address] (ABNORMAL) Hemogram (11/20/2018 8:55 AM EDT) [facility] gist Method Time Signature WBC 4.8 4.0 - 9.5 [facility] x10(3)/[facility] LABORATORY RBC 2.58 (L) 4.00 - [facility] 5.21 [facility] x10(6)/[facility] LABORATORY Hemoglobin 8.2 (L) 11.7 - [facility] 15.5 gm/dL [facility]ORY Hematocrit 25.8 (L) 35.7 - [facility] 45.8 % [facility] MCV 100.0 (H) 82.6 - [facility] 94.4 fL [facility] MCH 31.8 27.1 - [facility] 32.0 pg [facility] MCHC 31.8 31.7 - [facility] 35.0 gm/dL [facility] Platelets 348 145 - 357 [facility] x10(3)/[facility] LABORATORY RDWSD 71.6 (H) 37.0 - [place] 46.[address] [facility] LABORATORY RDWCV 19.9 (H) 11.5 - [place] 14.1 % [facility] MPV 9.9 7.6 - 12.9 [facility] CEL[place] [facility] LABORATORY nRBC % Auto 0.0 % [facility] nRBC Abs Auto 0.000 0.000 - [place] 0.000 [facility] x10(3)/[facility] LABORATORY Specimen Anatomical Collection Method Collection Time Receive d Time (Source) Location / / Volume Laterality Blood specimen 11/20/2018 8:55 AM 019 9:04 (specimen) EDT AM EDT Resulting Agency Comment Spec In Lab Michael Werner MD HEMATOLOGY ORDERABLES Performing Organization Address City/State/[facility] [place] [address] (ABNORMAL) Hepatic Function Panel (11/20/2018 3:45 AM EDT) P athologist Signature Total Protein 5.4 (L) 6.1 - 8.0 [facility] [place] gm/dL [facility] Albumin 3.5 3.2 - 5.2 [facility] [place] gm/dL [facility] AST 21 0 - 30 [place] unit/L [facility] ALT 13 0 - 30 [place] unit/L [facility] Alk Phos 57 40 - 104 [place] unit/L [facility] Total 0.2 0.2 - 1.3 [place] Bilirubin mg/dL [facility] Bili, Direct 0.1 0.0 - 0.3 [facility] [place] mg/dL [facility] Specimen Anatomical Collection Method Collection Time Receive d Time (Source) Location / / Volume Laterality Blood specimen 11/20/2018 3:45 AM 019 3:55 (specimen) EDT AM EDT Resulting Agency Comment Spec In Lab Salo Matson MD CHEMISTRY ORDERABLES Performing Organization Address City/State/[place] [address] (ABNORMAL) Basic Metabolic Panel (non-fasting) (11/20/2018 3:45 AM EDT) P athologist Signature Glucose Lvl 63 (L) 65 - 199 [facility] mg/dL [facility] Comment: Diabetes: >=200 mg/dL plus symp toms BUN 10 8 - 18 mg/dL [facility] Creatinine 0.73 0.70 - 1.20 mg/dL [facility] LABOR[facility]ORY Sodium 141 135 - 145 mmol/L [facility] Potassium 3.2 (L) 3.5 - 5.0 mmol/L [facility] Comment: Please note: ??Patients with WBC >100,00 0 may have falsely elevated Potassium levels. ??For accurate Potassium quantif ication in these patients send serum separator tube (gold top) for subsequent determinations. ??Contact the Clinical Chemistry Laboratory if there are any qu estions. Chloride 101 98 - 107 mmol/L [facility] CO2 24 22 - 31 mmol/L [facility] Anion Gap 16 (H) 5 - 15 mmol/L [facility] LABORATORY Calcium 8.6 8.5 - 10.5 mg/dL [facility] Estimated GFR 91 >=60 mL/min/1.73 m?? [facility] Comment: The eGFR was calculated using the CKD-EP I equation. As with all creatinine based estimates of kidney function, eGFR values calculated with the CKD-EPI equation are not accurate in patients wi th acute kidney failure, extremes of body mass or the acutely ill. [email or web address]/DHMCnkf eGFR 105 >=60 mL/min/1.73 m?? [facility] Comment: The eGFR was calculated using the CKD-EP I equation. As with all creatinine based estimates of kidney function, eGFR values calculated with the CKD-EPI equation are not accurate in patients wi th acute kidney failure, extremes of body mass or the acutely ill. [email or web address]/DHMCnkf Specimen Anatomical Collection Method Collection Time Receive d Time (Source) Location / / Volume Laterality Blood specimen 11/20/2018 3:45 AM 019 3:55 (specimen) EDT AM EDT Resulting Agency Comment Spec In Lab Salo Matson MD CHEMISTRY ORDERABLES Performing Organization Address City/State/Z[place] [address] (ABNORMAL) Differential, Automated (11/19/2018 7:00 AM EDT) P athologist Signature Neutrophils % 48.8 % [facility] Neutr Abs (ANC) 2.95 1.70 - [facility] 6.10 [facility] x10(3)/[facility] LABORATORY Lymphocytes % 32.8 % [facility] Lymphocytes Abs 2.0 0.9 - 3.2 [facility] x10(3)/[facility] LABORATORY Monocytes % 8.8 % [facility] Monocyte Abs 0.5 0.3 - 0.9 [facility] x10(3)/[facility] LABORATORY Eosinophils % 7.0 % [facility] Eosinophils Abs 0.4 0.0 - 0.4 [facility] x10(3)/[facility] LABORATORY Basophils % 1.3 % [facility] Basophils Abs 0.1 0.0 - 0.1 [facility] x10(3)/[facility] LABORATORY Immature Gran % 1.30 % [facility] Comment: Immature granulocytes(IG's)percentage an d absolute count will include metamyelocytes, myelocytes, and promyelo cytes. Blood smears from CBCs yielding IG's will be scanned manually for concor dance. If this scan disagrees with the automated IG or if promyelocytes are not ed, a manual differential will be performed. Zenaida Gran Abs 0.08 (H) 0.00 - 0.04 x10(3)/[facility] LABORATORY Specimen Anatomical Collection Method Collection Time Receive d Time (Source) Location / / Volume Laterality Blood specimen Venous Draw / 11/19/2018 7:00 AM 2018 (specimen) Unknown EDT 12:56 PM EDT Resulting Agency Comment Spec In Lab Ronit Glover MD HEMATOLOGY ORDERABLES Performing Organization Address City/[facility]/ZIP Code Phon e Number [address] (ABNORMAL) Reticulocyte Count (11/19/2018 7:00 AM EDT) [facility] TrueVault Method Time Signature Retic Ct % 8.5 (H) 0.7 - 2.5 [place] % [facility] LABORATORY Retic Ct Abs 0.210 (H) 0.020 - [place] 0.110 [facility] x10(6)/[facility] L LABORATORY Immature Retic% 33.4 (H) 0.5 - [place] 13.8 % [facility] LABORATORY Reticulated Hgb 34.2 29.8 - [place] 39.4 [facility] LABORATORY Specimen Anatomical Collection Method Collection Time Receive d Time (Source) Location / / Volume Laterality Blood specimen 11/19/2018 7:00 AM 019 7:19 (specimen) EDT AM EDT Resulting Agency Comment Spec In Lab Salo Matson MD HEMATOLOGY ORDERABLES Performing Organization Address City/[facility]/ZIP Code Phon e Number [address] (ABNORMAL) Hemogram (11/19/2018 7:00 AM EDT) [facility] Method Time Signature WBC 6.1 4.0 - 9.5 [place] x10(3)/[facility] LABORATORY RBC 2.47 (L) 4.00 - [place] 5.21 [facility] x10(6)/[facility] LABORATORY Hemoglobin 8.0 (L) 11.7 - [place] 15.5 gm/dL [facility] LABORATORY Hematocrit 24.4 (L) 35.7 - [place] 45.8 % [facility] LABORATORY MCV 98.8 (H) 82.6 - [place] 94.4 fL [facility]ATORY MCH 32.4 (H) 27.1 - [place] 32.0 pg [facility] MCHC 32.8 31.7 - [place] 35.0 gm/dL [facility] Platelets 299 145 - 357 [facility] x10(3)/[facility] LABORATORY RDWSD 70.8 (H) 37.0 - [facility] 46.0 [facility] RDWCV 20.5 (H) 11.5 - [facility] 14.1 % [facility] MPV 11.0 7.6 - 12.9 [facility] nRBC % Auto 0.3 % [facility] nRBC Abs Auto 0.020 (H) 0.000 - [facility] 0.000 [facility] x10(3)/[facility] LABORATORY Specimen Anatomical Collection Method Collection Time Receive d Time (Source) Location / / Volume Laterality Blood specimen 11/19/2018 7:00 AM 019 7:19 (specimen) EDT AM EDT Resulting Agency Comment Spec In Lab Salo Matson MD HEMATOLOGY ORDERABLES Performing Organization Address City/State/ZIP [place] [address] (ABNORMAL) Differential, Automated (11/19/2018 1:45 AM EDT) P athologist Signature Neutrophils % 50.3 % [facility] Neutr Abs (ANC) 3.31 1.70 - [facility] 6.10 [facility] x10(3)[facility] LABORATORY Lymphocytes % 31.9 % [facility] Lymphocytes Abs 2.1 0.9 - 3.2 [facility] x10(3)/[facility] LABORATORY Monocytes % 8.8 % [facility] Monocyte Abs 0.6 0.3 - 0.9 [facility] x10(3)[facility] LABORATORY Eosinophils % 6.4 % [facility] Eosinophils Abs 0.4 0.0 - 0.4 [facility] x10(3)[facility] LABORATORY Basophils % 0.9 % [facility] Basophils Abs 0.1 0.0 - 0.1 [facility] x10(3)[facility] LABORATORY Immature Gran % 1.70 % [facility] Comment: Immature granulocytes(IG's)percentage an d absolute count will include metamyelocytes, myelocytes, and promyelo cytes. Blood smears from CBCs yielding IG's will be scanned manually for concor danberyl. If this scan disagrees with the automated IG or if promyelocytes are not ed, a manual differential will be performed. Zenaida Gran Abs 0.11 (H) 0.00 - 0.04 x10(3)/[facility] LABORATORY Specimen Anatomical Collection Method Collection Time Receive d Time (Source) Location / / Volume Laterality Blood specimen 11/19/2018 1:45 AM 019 1:59 (specimen) EDT AM EDT Resulting Agency Comment Spec In Lab Jessie Piña MD HEMATOLOGY ORDERABLES Performing Organization Address City/State/Z[place] [address] (ABNORMAL) Hemogram (11/19/2018 1:45 AM EDT) [facility] gist Method Time Signature WBC 6.6 4.0 - 9.5 [facility] x10(3)/[facility] LABORATORY RBC 2.42 (L) 4.00 - [facility] CEL[place] 5.21 [facility] x10(6)/[facility] LABORATORY Hemoglobin 7.7 (L) 11.7 - [facility] [place] 15.5 gm/dL [facility] LABORATORY Hematocrit 24.1 (L) 35.7 - [place] 45.8 % [facility]ORATORY MCV 99.6 (H) 82.6 - [facility] CEL[place] 94.[address] [facility] LABORATORY MCH 31.8 27.1 - [place] 32.0 pg [facility] LABORATORY MCHC 32.0 31.7 - [facility] [place] 35.0 gm/dL [facility] LABORATORY Platelets 273 145 - 357 [facility] x[facility](3[facility] LABORATORY RDWSD 66.5 (H) 37.0 - [place] 46.[address] [facility] LABORATORY RDWCV 20.0 (H) 11.5 - [place] 14.1 % [facility] LABORATORY MPV 10.8 7.6 - 12.9 [facility] [place] nRBC % Auto 0.5 % [facility] nRBC Abs Auto 0.030 (H) 0.000 - [facility] [place] 0.000 [facility] x10(3)/[facility] LABORATORY Specimen Anatomical Collection Method Collection Time Receive d Time (Source) Location / / Volume Laterality Blood specimen 11/19/2018 1:45 AM 019 1:59 (specimen) EDT AM EDT Resulting Agency Comment Spec In Lab Jessie Piña MD HEMATOLOGY ORDERABLES Performing Organization Address City/[facility]/ZIP Code Phon e Number [address] Vitamin B12 (11/19/2018 1:45 AM EDT) athologist [facility] [place] Vitamin B-12 449 232 - 1,245 [facility] pg/mL [facility] LABORATORY Specimen Anatomical Collection Method Collection Time Receive d Time (Source) Location / / Volume Laterality Blood specimen 11/19/2018 1:45 AM 019 1:59 (specimen) EDT AM EDT Resulting Agency Comment Spec In Lab Salo Matson MD CHEMISTRY ORDERABLES Performing Organization Address City/[facility]/ZIP [place] [address] (ABNORMAL) Hepatic Function Panel (11/19/2018 1:45 AM EDT) athologist Signature Total Protein 5.1 (L) 6.1 - 8.0 [facility] [place] gm/dL [facility] Albumin 3.1 (L) 3.2 - 5.2 [place] gm/dL [facility] LABOR[facility] AST 21 0 - 30 [place] unit/L [facility] ALT 10 0 - 30 [place] unit/L [facility] LAB[facility] Alk Phos 53 40 - 104 [facility] [place] unit/L [facility] Total 0.2 0.2 - 1.3 [place] Bilirubin mg/dL [facility] Bili, Direct <0.1 0.0 - 0.3 [facility] [place] mg/dL [facility] LABOR[facility]ORY Specimen Anatomical Collection Method Collection Time Receive d Time (Source) Location / / Volume Laterality Blood specimen 11/19/2018 1:45 AM 019 1:59 (specimen) EDT AM EDT Resulting Agency Comment Spec In Lab Salo Matson MD CHEMISTRY ORDERABLES Performing Organization Address City/State/[place] [address] Basic Metabolic Panel (non-fasting) (11/19/2018 1:45 AM EDT) athologist Signature Glucose Lvl 68 65 - 199 [facility] mg/dL [facility] Comment: Diabetes: >=200 mg/dL plus symp toms BUN 12 8 - 18 mg/dL [facility] Creatinine 0.79 0.70 - 1.20 mg/dL [facility] Sodium 138 135 - 145 mmol/L [facility] Potassium 4.0 3.5 - 5.0 mmol/L [facility] Comment: Please note: ??Patients with WBC >100,00 0 may have falsely elevated Potassium levels. ??For accurate Potassium quantif ication in these patients send serum separator tube (gold top) for subsequent determinations. ??Contact the Clinical Chemistry Laboratory if there are any qu estions. Chloride 101 98 - 107 mmol/L [facility] CO2 24 22 - 31 mmol/L [facility] Anion Gap 13 5 - 15 mmol/L [facility] Calcium 8.5 8.5 - 10.5 mg/dL [facility] Estimated GFR 83 >=60 mL/min/1.73 m?? [facility] Comment: The eGFR was calculated using the CKD-EP I equation. As with all creatinine based estimates of kidney function, eGFR values calculated with the CKD-EPI equation are not accurate in patients wi th acute kidney failure, extremes of body mass or the acutely ill. http://Omnistream[employer]/DHMCnkf eGFR 96 >=60 mL/min/1.73 m?? [facility] Comment: The eGFR was calculated using the CKD-EP I equation. As with all creatinine based estimates of kidney function, eGFR values calculated with the CKD-EPI equation are not accurate in patients wi th acute kidney failure, extremes of body mass or the acutely ill. [email or web address].com/DHMCnkf Specimen Anatomical Collection Method Collection Time Receive d Time (Source) Location / / Volume Laterality Blood specimen 11/19/2018 1:45 AM 019 1:59 (specimen) EDT AM EDT Resulting Agency Comment Spec In Lab Salo Matson MD CHEMISTRY ORDERABLES Performing Organization Address [facility] [place] [address] (ABNORMAL) APTT (11/19/2018 1:45 AM EDT) P athologist Signature PTT 21 (L) 25 - 37 sec [facility] Comment: The PTT is NOT [...] Matson MD HEMATOLOGY ORDERABLES Performing Organization Address [facility] [place] [address] Prothrombin Time (11/19/2018 1:45 AM EDT) P athologist Signature PT 10.0 9.4 - 12.5 [facility] LABORATORY INR 0.9 [facility] Comment: An INR <2.0 indicates [...] Matson MD HEMATOLOGY ORDERABLES Performing Organization Address City/[facility]/ZIP Code Phon e Number [address] ABORH Recheck Status (11/18/2018 8:30 PM EDT) Pathreading hospital gist Method Time Signature ABORH Type Completed [facility] LABORATORY Specimen Anatomical Collection Method Collection Time Receive d Time (Source) Location / / Volume Laterality Blood specimen 11/18/2018 8:30 PM 019 8:48 (specimen) EDT PM EDT Resulting Agency Comment Spec In Lab Concepcion Lopez MD BLOOD BANK ORDERABLES Performing Organization Address City/[facility] [place] [address] Antibody screen (11/18/2018 8:30 PM EDT) [facility] Method Time Signature Ab Screen Negative [facility] LABORATORY Expires at 11/21/2018 [facility] [id number] on: [facility]OR[facility] Specimen Anatomical Collection Method Collection Time Receive d Time (Source) Location / / Volume Laterality Blood specimen 11/18/2018 8:30 PM 019 8:48 (specimen) EDT PM EDT Resulting Agency Comment Spec In Lab Concepcion Lopez MD BLOOD BANK ORDERABLES Performing Organization Address City/[facility]/ZIP [place] [address] ABO/Rh Typing (11/18/2018 8:30 PM EDT) P athologist Signature ABORh Type O Pos [facility] Specimen Anatomical Collection Method Collection Time Receive d Time (Source) Location / / Volume Laterality Blood specimen 11/18/2018 8:30 PM 019 8:48 (specimen) EDT PM EDT Resulting Agency Comment Spec In Lab Concepcion Lopez MD BLOOD BANK ORDERABLES Performing Organization Address City/[facility]/ZIP Code Phon e [place] [facility] [place] [address] (ABNORMAL) Differential, Automated (11/18/2018 8:30 PM EDT) P athologist Signature Neutrophils % 58.6 % [facility] Neutr Abs (ANC) 4.20 1.70 - [facility] 6.10 [facility] x10(3)/[facility] LABORATORY Lymphocytes % 25.9 % [facility] Lymphocytes Abs 1.9 0.9 - 3.2 [facility] x10(3)/[facility] LABORATORY Monocytes % 7.9 % [facility] Monocyte Abs 0.6 0.3 - 0.9 [facility] x10(3)/[facility] LABORATORY Eosinophils % 5.2 % [facility] Eosinophils Abs 0.4 0.0 - 0.4 [facility] x10(3)/[facility] LABORATORY Basophils % 1.0 % [facility] Basophils Abs 0.1 0.0 - 0.1 [facility] x10(3)/[facility] LABORATORY Immature Gran % 1.40 % [facility] Comment: Immature granulocytes(IG's)percentage an d absolute count will include metamyelocytes, myelocytes, and promyelo cytes. Blood smears from CBCs yielding IG's will be scanned manually for concor dance. If this scan disagrees with the automated IG or if promyelocytes are not ed, a manual differential will be performed. Zenaida Gran Abs 0.10 (H) 0.00 - 0.04 x10(3)/[facility] LABORATORY Specimen Anatomical Collection Method Collection Time Receive d Time (Source) Location / / Volume Laterality Blood specimen 11/18/2018 8:30 PM 019 8:44 (specimen) EDT PM EDT Resulting Agency Comment Spec In Lab Concepcion Lopez MD HEMATOLOGY ORDERABLES Performing Organization Address City/State/Z[place] [address] (ABNORMAL) Hemogram (11/18/2018 8:30 PM EDT) Patholo gist Method Time Signature WBC 7.2 4.0 - 9.5 [facility] LABORATORY RBC 2.50 (L) 4.00 - R[facility]O ERNANDEZCOCK 5.21 [facility] x10(6)/[facility] LABORATORY Hemoglobin 8.0 (L) 11.7 - [facility]ARDO MALLOYCELSO 15.5 gm/dL [facility] Hematocrit 25.0 (L) 35.7 - [facility] 45.8 % [facility] MCV 100.0 (H) 82.6 - [facility] 94.[address] [facility] LABORATORY MCH 32.0 27.1 - RICARDO CELSO 32.0 pg [facility] MCHC 32.0 31.7 - [facility] 35.[facility] gm/dL [facility] Platelets 286 145 - 357 [facility] x10(3)/[facility] LABORATORY RDWSD 64.2 (H) 37.0 - [facility] 46.[address] [facility] LABORATORY RDWCV 19.7 (H) 11.5 - [facility] 14.1 % [facility] MPV 11.5 7.6 - 12.9 [facility] LABORATORY nRBC % Auto 0.6 % [facility] nRBC Abs Auto 0.040 (H) 0.000 - RICARDO CELSO 0.000 [facility] x10(3)/[facility] LABORATORY Specimen Anatomical Collection Method Collection Time Receive d Time (Source) Location / / Volume Laterality Blood specimen 11/18/2018 8:30 PM 019 8:44 (specimen) EDT PM EDT Resulting Agency Comment Spec In Lab Concepcion Lopez MD HEMATOLOGY ORDERABLES Performing Organization Address City/State/ZIP Code Phon e Number [facility] [place] [address] (ABNORMAL) Hepatic Function Panel (11/18/2018 8:30 PM EDT) Analysis Performed At Patho logist Time Signature Total Protein 5.7 (L) 6.1 - 8.0 [facility] gm/dL [facility] Albumin 3.5 3.2 - 5.2 [facility] gm/dL [facility] AST Not Perf 0 - 30 [facility] Comment: Unable to quantitate due to sample hemol ysis. ??Sample redraw suggested. Called by: JALEN, Read back by: Harry solorzano, Date/Time:11/18/18 22:08. ALT 11 0 - 30 unit/L [facility] Alk Phos 60 40 - 104 unit/L [facility] Total Bilirubin 0.4 0.2 - 1.3 mg/dL [facility] Bili, Direct 0.1 0.0 - 0.3 mg/dL [facility]OR[facility] Specimen Anatomical Collection Method Collection Time Receive d Time (Source) Location / / Volume Laterality Blood specimen 11/18/2018 8:30 PM 019 8:44 (specimen) EDT PM EDT Resulting Agency Comment Spec In Lab Salo Matson MD CHEMISTRY ORDERABLES Performing Organization Address [facility] Phon e Number [address] Phosphorus (11/18/2018 8:30 PM EDT) P athologist Signature Phosphorus 3.8 2.5 - 4.5 [facility] mg/dL [facility] Specimen Anatomical Collection Method Collection Time Receive d Time (Source) Location / / Volume Laterality Blood specimen 11/18/2018 8:30 PM 019 8:44 (specimen) EDT PM EDT Resulting Agency Comment Spec In Lab Salo Matson MD CHEMISTRY ORDERABLES Performing Organization Address City/[facility]/ZIP Code Phon e Number [address] Magnesium (11/18/2018 8:30 PM EDT) P athologist Signature Magnesium 1.00 0.69 - 1.07 [facility] mmol/L [facility] Specimen Anatomical Collection Method Collection Time Receive d Time (Source) Location / / Volume Laterality Blood specimen 11/18/2018 8:30 PM 019 8:44 (specimen) EDT PM EDT Resulting Agency Comment Spec In Lab Salo Matson MD CHEMISTRY ORDERABLES Performing Organization Address City/State/ZIP [place] [address] (ABNORMAL) Basic Metabolic Panel (non-fasting) (11/18/2018 8:30 PM EDT) P athologist Signature Glucose Lvl 82 65 - 199 [facility] mg/dL [facility] Comment: Diabetes: >=200 mg/dL plus symp toms BUN 13 8 - 18 mg/dL [facility] Creatinine 0.89 0.70 - 1.20 mg/dL [facility] Sodium 137 135 - 145 mmol/L [facility] Potassium 4.5 3.5 - 5.0 mmol/L [facility] Comment: Please note: ??Patients with WBC >100,00 0 may have falsely elevated Potassium levels. ??For accurate Potassium quantif ication in these patients send serum separator tube (gold top) for subsequent determinations. ??Contact the Clinical Chemistry Laboratory if there are any qu estions. Chloride 100 98 - 107 mmol/L [facility] CO2 24 22 - 31 mmol/L [facility] Anion Gap 13 5 - 15 mmol/L [facility] Calcium 8.4 (L) 8.5 - 10.5 mg/dL [facility] Estimated GFR 71 >=60 mL/min/1.73 m?? [facility] Comment: The eGFR was calculated using the CKD-EP I equation. As with all creatinine based estimates of kidney function, eGFR values calculated with the CKD-EPI equation are not accurate in patients wi th acute kidney failure, extremes of body mass or the acutely ill. [email or web address]/[email or web address] PRYORnkf eGFR 83 >=60 mL/min/1.73 m?? [facility] Comment: The eGFR was calculated using the CKD-EP I equation. As with all creatinine based estimates of kidney function, eGFR values calculated with the CKD-EPI equation are not accurate in patients wi th acute kidney failure, extremes of body mass or the acutely ill. http://PRO[employer]/[facility] PRYORnkf Specimen Anatomical Collection Method Collection Time Receive d Time (Source) Location / / Volume Laterality Blood specimen 11/18/2018 8:30 PM 019 8:44 (specimen) EDT PM EDT Resulting Agency Comment Spec In Lab Salo Matson MD CHEMISTRY ORDERABLES Performing Organization Address City/[facility]/ZIP Code Phon e Number [address] Lactate, whole blood, send to lab (Leb/CGP) (11/18/2018 8:30 PM EDT) P athologist Signature Lactate WB 1.0 0.5 - 2.2 [facility] mmol/L [facility] Specimen Anatomical Collection Method Collection Time Receive d Time (Source) Location / / Volume Laterality Blood specimen 11/18/2018 8:30 PM 019 8:43 (specimen) EDT PM EDT Resulting Agency Comment Spec In Lab Salo Matson MD CHEMISTRY ORDERABLES Performing Organization Address City/[facility]/ZIP Code Phon e Number [address] POCT Glucose (11/18/2018 6:56 PM EDT) P athologist Signature POC Glucose 82 65 - 199 [facility] mg/dL [facility] Comment: Supplemental ranges: <140 mg/dL before meals <180 mg/dL all other times of the day Specimen Anatomical Collection Method Collection Time Receive d Time (Source) Location / / Volume Laterality Blood specimen 11/18/2018 6:56 PM 019 6:56 (specimen) EDT PM EDT Salo Matson MD POINT OF CARE TEST ORDERABLE S Performing Organization Address City/[facility]/ZIP [place] [address] documented in this encounter Visit Diagnoses Not on filedocumented in this encounter Admitting Diagnoses Diagnosis Hypotension Hypotension, unspecified documented in this encounter Administered Medications Inactive Administered Medications - up to 3 most recent administrations Medication Order MAR Action Action Date Dose Rate Site pantoprazole (PROTONIX) injection Given 11/20/2018 8:30 AM EDT 4 0 mg 40 mg 40 mg, Intravenous, 2 TIMES [...] 2010, Until Sat11/20/18 at 1705, Irritation, Routine sertraline (ZOLOFT) tablet 100 mg Given [...] 11/19/2018 9:20 AM EDT 5 mLs thiamine (Vitamin B-1) tablet 100 mg Given [...] 2049 (Given - Provider: Kristian Larios RN) 0919 (Given - Provider: Mary Thayer, R N)1338 ([facility] Hold - Provider: Admin Adt - Reason: Transfer to a Procedural area)1541 ([facility] Unhold - Provider: Admin Adt)2121 (Given - Provider: Samantha Shoemaker RN) 0830 (Given - Provider: Anabela Martínez, VIOLA) 40 mg, Intravenous, 2 TIMES DAILY, First dose on Sat11/18/18 at 2100, Until Discontinued potassium chloride (K-DUR/KLOR-CON) extended release tablet 40 mEq (COMPLETED) 06 (Given - Provider: Samantha morales RN) 40 mEq, Oral, ONCE, 1 dose, Sat11/20/18 a t 0615, 20 mEq tablet may be dissolved in water for administration, Routine potassium chloride (K-DUR/KLOR-CON) extended release tablet 40 mEq (COMPLETED) 1217 (Given - Provider: Anabela Martínez RN) 40 mEq, Oral, ONCE, 1 dose, Sat11/20/18 a t 1045, 20 mEq tablet may be dissolved in water for administration, Routine sertraline (ZOLOFT) tablet 100 mg 0919 ( Given - Provider: Mary Thayer RN)1338 ([facility] Hold - Provider: Admin Adt - Reason: Transfer to a Procedural area)1541 ([facility] Unhold - Provider: Admin Adt) 0829 (Given - Provider: Anabela Martínez RN) 100 mg, Oral, DAILY, First dose on Sat at 0900, Until Discontinued, Routine simvastatin (ZOCOR) tablet 20 mg 1338 ([facility] Hold - Provider: Admin Adt - Reason: Transfer to a Procedural area)1541 ([facility] Unhold - Provider: Admin Adt)1718 (Given - Provider: Mary Thayer RN) 20 mg, Oral, EVERY EVENING, First dose o n Sat11/19/18 at 1700, Until Discontinued, Routine sirolimus (RAPAMUNE) tablet 2 mg 0919 (G iven - Provider: Mary Thayer RN)1338 ([facility] Hold - Provider: Admin Adt - Reason: Transfer to a Procedural area)154 ([facility] Unhold - Provider: Admin Adt) 0830 (Given - Provider: Anabela Martínez, VIOLA) 2 mg, Oral, DAILY, First dose on 11/19 at 0900, Until Discontinued, DO NOT CRUSH OR OPEN, Routine sodium chloride 0.9 % (flush) flush 5 mL 2050 (Given - Provider: Kristian Larios RN) 09 (Given - Provider: Kellie Austin)133 ([facility] Hold - Provider: Admin Adt - Reason: Transfer to a Procedural area)154 ([facility] Unhold - Provider: Admin Adt)2122 (Given - Provider: Samantha Shoemaker, VIOLA) 050 (Given - Provider: Anabela Martínez, VIOLA) 5 mL, Intravenous, 2 TIMES DAILY, First dose on Sat11/18/18 at 2100, Until Discontinued, Routine thiamine (B-1) injection 100 mg (CANCELED) 918 (Given - Provider: Mary Thayer, VIOLA)133 ([facility] Hold - Provider: Admin Adt - Reason: Transfer to a Procedural area)154 ([facility] Unhold - Provider: Admin Adt) 100 mg, Intravenous, DAILY, First dose o n Sat11/19/18 at 0900, Until Discontinued, Doses of 100 mg are to be administered as IV push over 5 minutes. Doses of 200 mg or more should be mixed in 50 mL 0.9% Sodium Chloride and infused over 30 minutes. thiamine (Vitamin B-1) tablet 100 mg 0829 (Given - Provider: Anabela Martínez RN) 100 mg, Oral, DAILY, First dose on Sat at 0900, Until Discontinued, Routine PRN Medication Order 11/18/2018 11/19/2018 11/20/2018 albuterol (PROVENTIL) nebulizer solution 2.5 mg 133 ([facility] Hold - Provider: Admin Adt - Reason: Transfer to a Procedural area)1541 ([facility] Unhold - Provider: Admin Adt) 2.5 mg, Nebulization, EVERY 2 HOURS PRN, Starting Sat11/18/18 at 2015, Until Sat11/20/18 at 1705, Wheezing, Routine ipratropium-albuterol (DUONEB) 0.5 mg-3 mg(2.5 mg base)/3 mL nebulizer solution 3 mL 1338 ([facility] Hold - Provider: A dmin Adt - Reason: Transfer to a Procedural area)1541 ([facility] Unhold - Provider: Admin Adt) 3 mL, Nebulization, EVERY 6 HOURS PRN, S tarting 11/18/18 at 2014, Until Carine 11/20/18 at 1705, Wheezing, Routine lidocaine (XYLOCAINE) 10 mg/mL (1 %) injection 3 mg 1338 ([facility] Hold - Provider: Admin Adt - Reason: Transfer to a Procedural area)154 ([facility] Unhold - Provider: Admin Adt) 3 mg (0.3 mL), Subcutaneous, ONCE PRN, 1 dose, Starting Sat11/18/18 at 2014, Until Carine 11/20/18 at 1705, for discomfort with PIV insertion, Routine phenol 1.4% (CHLORASEPTIC) spray 1 spray 2120 (Given - Provider: Samantha Shoemaker, VIOLA - Comment: for sore throat) 1 spray, Oral, EVERY 4 HOURS PRN, Starti ng Wed 11/19/18 at 2009, Until Carine 11/20/18 at 1705, Irritation, Routine sodium chloride 0.9 % (flush) flush 5-20 mL 1338 ([facility] Hold - Provider: Admin Adt - Reason: Transfer to a Procedural area)154 ([facility] Unhold - Provider: Admin Adt) 5-20 mL, Intravenous, EVERY 1 MIN PRN, S tarting e 11/18/18 at 2014, Until Carine 11/20/18 at 1705, flush, Flush pertains to all indwelling lines. Flush per protocol found in the job aid using the link provided on this medication record., Routine documented in this encounter Care Teams Pharmacist Hospital Relationship Specialty Start Date End Date Magdalene Lin PA PCP - General 09/05/[address] [place] [address] documented as of this encounter
--- OUTSIDE RECORDS SUMMARY | 2022-02-10 06:10 | XMS_ITS | Encounter Summary ---
:1960 [place] [address] Care Team Providers Name Role Phone Iliana Tapiaara DARI Primary Care Provider [phone] Reason for Visit Reason Comments Shortness of Breath Encounter Details Date Type Department Care Team Description 03/07/2012 Emergency Emergency Department [facility] DEPT, [place] [address] [place] [address] Social History Tobacco Use Types Packs/Day Years Used Date Never Assessed Sex Assigned at Date Recorded Not on file documented as of this encounter Last Filed Vital Signs Vital Sign Reading Time Taken Comments Blood Pressure 158/112 03/07/2012 7:06 PM EDT Pulse 92 03/07/2012 7:06 PM EDT Temperature 37 ??C (98.6 ??F) 03/07/2012 7:06 PM EDT Respiratory Rate 18 03/07/2012 7:06 PM EDT Oxygen Saturation 89% 03/07/2012 7:06 PM EDT Inhaled Oxygen Concentration - - Weight 52.2 kg (115 lb) 03/07/2012 7:06 PM EDT Height - - Body Mass Index - - documented in this encounter Medications at Time of Discharge Medication Sig Dispensed Refills Start Date End Date CIS Free Text Med - 1 Puff(s), Inh, 0 06/08/2008 Albuterol Q4-6H,PRN [facility] Free Text Med - 600mg, PO, Q8H 0 06/08/2008 0 11/18/2018 Ibuprofen [facility] Free Text Med - 4-6 L continuous, 0 9 11/20/2018 oxygen 4-6 L continuous Nasal, as directed flow multivitamin (THERAGRAN) 0 06/08/2008 11/20/2018 tablet documented as of this encounter Miscellaneous Notes ED Triage - Alisa López RN - 03/07/2012 7:09 PM EDT Pt reports shortness of breath when she accompanied from ER up to admission floor, she has lung disease and uses oxygen PRN at home. Pt left house in a worley today and forgot to bring oxygen with her. Pt denies any other complaints, no recent illness, no cough or fever documented in this encounter Plan of Treatment Not on filedocumented as of this encounter Visit Diagnoses Not on filedocumented in this encounter Care Teams Dispensing Audiologist Relationship Specialty Start Date End Date Aurora Tapia APRN PCP - General 04/11/10 09/04/[address] [place] [address] documented as of this encounter
--- OUTSIDE RECORDS SUMMARY | 2022-02-10 06:10 | XMS_ITS | Encounter Summary ---
:1960 Author Organization [facility] [place] [address] Care Team Providers Name Role Phone Magdalene Lin Primary Care Provider [phone] Encounter Details Date Type Department Care Team Description 09/25/2018 Ext Surgery or [facility] Stone Ortega Chest pain, Single Event [facility] MD [place] unspecified type [address] [facility] [address] [place] [address] [id number] Social History Tobacco Use Types Packs/Day Years Used Date Never Assessed Sex Assigned at Date Recorded Not on file documented as of this encounter Plan of Treatment Not on filedocumented as of this encounter Procedures Procedure Name Priority Date/Time Associated Diagnosis Comme nts ECG SCAN 09/25/2018 12:00 AM Results for this EDT procedure are i n the results section. STRESS TEST, Routine 09/25/2018 Results for thi s EXERCISE procedure are i n (TREADMILL) the results section. documented in this encounter Results Stress Test, Exercise (Treadmill) (09/25/2018) Anatomical Region Laterality Modality Other Narrative 09/25/2018 Exercise Stress Test- Final Report ?? Paradise Abel : 1960 [facility], [address] [facility] [place] [facility] [address] Primary Physician: ??FRANCE You ??Indication: chest pain Date: 09/25/2018 Summary: Max Exercise: ??3:00 ??Stage I ??Kvng ? ? 4.6 ?? METS Max HR: ? 115< 85 % PMR(138) Max BP: ??179/[address] change: ??none Reason for Termination: dyspnea, unable to walk at stage II pace Impression: poor exercise tolerance, hea rt rate limited by beta peace, non diagnostic test. Note- patient on O2 2L during test. Repeating the test as a dobutamine MIBI off metoprolol for 48 hours woul d be required for better diagnostic asse ssment of CAD Details: Medication: on metoprolol Risk Factors: ?? HTN, Cholesterol, forme r Smoking Resting EKG: NSR 87, mild J point elevat ion ?Resting BP: 143/107 Exercise per Kvng protocol Arrhythmias: none Recovery: ??BP ?? -> ?? 169/100 ?HR ?? -> 100 Electronically signed: ??Stone cronin MD FACC ??Date: 09/25/2018 Historical Provider CARDIAC SERVICES ORDERABLES SCAN DOC: ECG (09/25/2018 12:00 AM EDT) Narrative 09/25/2018 12:00 AM EDT This result has an attachment that is no t available. Ordered by an unspecified provider. Scanning Provider MEDIA MGR SCAN EXT ORDR/RSLT documented in this encounter Visit Diagnoses Diagnosis Chest pain, unspecified type documented in this encounter Care Teams Button Breaker Relationship Specialty Start Date End Date Magdalene Lin PA PCP - General 09/05/[address] [place] [address] documented as of this encounter
[2022-02-10 06:11] LABS: COVID-19 PCR Negative (Negative)
--- OUTSIDE RECORDS SUMMARY | 2022-02-10 06:13 | XMS_ITS ---
:1960 Author Organization [facility] Address [address] [place] [address] Care Team Providers Name Role Phone Christ Middleton Unavailable Unavailable PROBLEMS Unknown Problems ALLERGIES Substance Reaction Event Type Date Status Ibuprofen Unknown Drug Allergy Oct, Active ENCOUNTERS Encounter Location Date Diagnosis xxOFFICE NON CLINICAL [address] [facility] Feb, [place] [address] [facility] [address] [facility] Dec, [place] [address] right should er M75.01 [facility] [address] [facility] Dec, [place] [address] right should er M75.01 [facility] [address] [facility] Nov, [place] [address] [facility] [address] [facility] Nov, [place] [address] LPO-SPECIALTY TEAM [address] [facility] Nov, [place] [address] [facility] [address] [facility] Nov, [place] [address] [facility] [address] [facility] Nov, [place] [address] right should er M75.01 ADMINISTRATION [address] [facility] Nov, [place] [address] [facility] [address] [facility] Oct, [place] [address] [facility] [address] [facility] Oct, [place] [address] right should er M75.01 [facility] [address] [facility] Oct, [place] [address] [place] [facility] [address] [facility] Oct, [place] [address] [facility] [address] [facility] Oct, [place] [address] [facility] [address] [facility] Oct, [place] [address] [facility] [address] [facility] September, [place] [address] [facility] [address] [facility] September, [place] [address] [facility] [address] [facility] September, [place] [address] fracture of greater tuberosity of ri ght humerus, initial encounter S42.25 4A [facility] [address] [facility] September, [place] [address] [facility] [address] [facility] [address] September, [place] [address] [facility] [address] [facility] September, [place] [address] LPO-SPECIALTY TEAM [address] [facility] Aug, [place] [address] [facility] [address] [facility] Aug, [place] [address] fracture of greater tuberosity of ri ght humerus, initial encounter S42.25 4A [facility] [address] [facility] Aug, [place] [address] fracture of greater tuberosity of ri ght humerus, initial encounter S42.25 4A ; Closed fracture of multiple ribs of left side with routin e healing, subsequ ent encounter S22.42 XD and SOB (shortness o f breath) R06.02 [facility] [address] [facility] Jul, [place] [address] proximal end of left humerus, unspeci fied fracture morphol ogy, initial encounte r S42.202A IMMUNIZATIONS No Known Immunizations SOCIAL HISTORY Qualifiers Date Former Smoker REASON FOR REFERRAL FUNCTIONAL STATUS PLAN OF CARE Activity Details Follow Up prn Reason: Future Test FL Kamins Joint Injection Future Test FL Kamins Joint Injection Future Test X Ribs L 20190824 Future Test X Chest 2V 20190824 Future Test X Shoulder R [id number] VITAL SIGNS Height 5 ft 3 in in 2019-11-17 Height 5 ft 3 in in 2019-08-24 Weight 99 lbs 2019-08-24 BMI 17.54 kg/m2 2019-08-24 Temperature 97.2 degrees Fahrenheit 2019-11-17 Temperature 98.7 degrees Fahrenheit 2019-08-24 Heart Rate 68 /min 2019-11-17 Heart Rate 99 /min 2019-08-24 Respiratory Rate 18 /min 2019-11-17 Respiratory Rate 18 /min 2019-08-24 Oximetry 92 % 2019-08-24 Blood pressure systolic 118 mm Hg 2019-08-24 Blood pressure diastolic 78 mm Hg 2019-08-24 MEDICATIONS Medication Instructions Dosage Frequency Start End Duration Statu s Date Date oxyCODONE-Acetam Orally every 6 one tab 6h Oct, 14 days Active inophen 5-325 MG hrs 2020 HYDROmorphone Orally every 4 1-3 tablet 14 Aug, 3 days Not-Takin HCl 2 MG hrs , up to 12 as needed 2020 g per day oxyCODONE HCl 5 Orally every 4 1-2 tablet 4h Jul, Not-Takin MG hrs as needed 2020 g oxyCODONE-Acetam Orally every 6 1 tablet 6h 15 Oct, 7 days Not-Takin inophen 5-325 MG hrs as needed, 2020 g MAX of 5 tablets a day oxyCODONE-Acetam Orally every 6 1 tablet 6h Nov, 14 days Active inophen 5-325 MG hrs as needed 2020 oxyCODONE-Acetam Orally every 6 1-2 6h 07 October, 7 days Not-Takin inophen 5-325 MG hrs tablets as 2020 g needed, MAX of 7 tablets oxyCODONE-Acetam Orally every 4 1 tablet 4h Oct, 7 days Not-Takin inophen 5-325 MG hrs as needed 2020 g MAX OF 6 TABLETS A DAY oxyCODONE-Acetam Orally every 8 1 tablet 8h Nov, 14 days Active inophen 5-325 MG hrs as needed, 2020 max of 3 tablets a day Furosemide 20 MG Orally Once a 1 tablet 24h 30 day(s ) Active day oxyCODONE-Acetam Orally every 4 1-2 tablet 30 September, 7 day s Not-Takin inophen 5-325 MG hrs prn, up to as needed 2020 g 8 per day PROCEDURES No Known procedures RESULTS Name Result Date Reference Range FL Kamins Joint Injection 2019-12-24 Image Accessible FL Kamins Joint Injection 2019-11-19 See Below For Report X Chest 2V 2019-08-24 See Below For Report X Ribs L 2019-08-24 See Below For Report X Shoulder R 2019-08-24 See Below For Report X Shoulder R 2019-08-17 See Below For Report REASON FOR VISIT need new ot referral, Right shoulder fluoro, 12/23 11:30 am , rx refill, wants another fluoro, rx refill, refill of pain medication, pt requesting rx, Right Shoulder Fluoro, change time of appt with PT ,11/18 Right Shoulder Fluoro 1115 am, DISCLAIMER: THIS NOTE WAS CREATED USING [employer] 12.5 VOICE RECOGNITION SOFTWARE. IT WAS REVIEWED FOR MAJOR CONTENT. HOWEVER, THERE MAY BE MULTIPLE SMALL DESCREPANCIES AND/OR ERRORS DUE TO THE VOICE RECOGNITION ASPECTS OF THE SOFTWARE., shoulder f/u, xrays at 10 am, [id number],, Rx refill, Refill, Rx refill, PT and rx, PT and rx, PT and rx, PT, rx refill, script failed, pain rx, patient called with alternate help with pain, Refill of pain medication/Oncall send?, DISCLAIMER: THIS NOTE WAS CREATED USING [employer] Interactive.5 VOICE RECOGNITION SOFTWARE. IT WAS REVIEWED FOR MAJOR CONTENT. HOWEVER, THERE MAY BE MULTIPLE SMALL DESCREPANCIES AND/OR ERRORS DUE TO THE VOICE RECOGNITION ASPECTS OF THE SOFTWARE., Broken Right Shoulder, Last x-ray on 08/17/2019- done in the ER, Pt states 01/27 pain currently, pain medication, haven't had period in 5 mos Insurance Providers [employer] Member Patient Patient Patient Patient Patient Subscriber Subscriber Subscriber Group Insurance Plan Plan Plan Plan ID Relationship Address Phone Name Date of ID Name Date of No Type Insurance Insurance Insurance Coverage to Subscriber Address Phone Name Dates SELF PAY [address] STRE[address] SELF PAY self [place] [id number] [place] [address] INS UNITED [address] self [place] [id number] [facility] [id number] [place] [id number] SELF PAY self [place] [id number] [place] [id number] S[address] SELF PAY self [place] [id number] [place] [address] SELF PAY self [place] [id number] [place] [address] SELF PAY self [place] [id number] [place] [address] SELF PAY self [place] [id number] [place] [address] INS UNITED [address] [place] [id number] [facility] [id number] [facility] [id number] SELF [address] SELF PAY self [place] [id number] [place] [address] INS BLUE CROSS [address] [place] [id number] [facility] [address] [place] [address] [place] [address] [place] [id number] [facility]ALTH[facility]ARE [id number] [facility] [id number] UNITED [address] self [place] [id number] HEALTHCARE [id number] [facility] [id number] SELF [address]Y [address] SELF PAY self [place] [id number] [facility] [id number] [place] BLUE CROSS [address] [place] [id number] [facility] [address] [place] [address] SELF PAY self [place] [id number] 4 [place] [address] SELF PAY self [place] [id number] [facility] [id number] SELF PAY self [place] [id number] 4 AFTER [place] [address] CR[place] [address] [place] [id number] [facility]ARE [id number] [facility] [id number]
--- NOTE | 2022-02-10 06:48 | NUR.NOTE ---
[facility] [place] to help with med rec.Nursing Note:
--- NOTE | 2022-02-10 07:18 | TELEP.MEDR_ITS ---
Date of service: 02/10/22 Time of Service: 07:13 [facility] Allergies Allergies: No Known Allergies Allergy (Unverified 02/10/22 06:13) Interview Person Interviewed: * Med list only Quality Quality of Interview/Accuracy of Medication List: Good Sources Sources used to compile medication list: [employer] Medication List and Other Changes made to Home Medication List: ADDITIONS: * none DELETIONS: * none CHANGES: * none Additional Notes Additional Notes: * patient is unable to speak. RN faxed over med list which corresponds to what is in [employer]. Last administration times are unknown Recommended Changes Attestation: The home medication list is now updated to the best of my knowledge and is ready to be reconciled by the provider. [facility] Pharmacist at for any questions.
--- NOTE | 2022-02-10 07:18 | TELEP.MEDREC ---
Date of service: 02/10/22 Time of Service: 07:13 Telepharmacy Home Med Rec Allergies Allergies: No Known Allergies Allergy (Unverified 02/10/22 06:13) Interview Person Interviewed: Med list only Quality Quality of Interview/Accuracy of Medication List: Good Sources Sources used to compile medication list: [employer] Medication List and Other Changes made to Home Medication List: ADDITIONS: none DELETIONS: none CHANGES: none Additional Notes Additional Notes: patient is unable to speak. RN faxed over med list which corresponds to what is in [employer]. Last administration times are unknown Recommended Changes Attestation: The home medication list is now updated to the best of my knowledge and is ready to be reconciled by the provider. Please contact the TelePharmacy Medication Reconciliation Pharmacist at for any questions.
--- NOTE | 2022-02-10 07:30 | DI.VRAD_ITS ---
PROCEDURE INFORMATION: Exam: XR Chest Exam date and time: 02/10/2022 5:17 AM Age: 61 years old Clinical indication: Other: Shortness of breath TECHNIQUE: Imaging protocol: Radiologic exam of the chest. Views: 1 view. COMPARISON: 1. CR XR CHEST 1V IN DI DEPT 08/05/2021 6:[address] ABDOMEN PELVIS W 08/05/2021 6:48 PM FINDINGS: Lungs: The lungs are hyperinflated and there is diffuse coarsening of the interstitial markings, consistent with emphysema and chronic obstructive pulmonary disease. There is no consolidation. Pulmonary vasculature is normal in caliber. Pleural spaces: Unremarkable. No pleural effusion or pneumothorax. Heart/Mediastinum: Heart size is normal. Cardiomediastinal contours are stable and satisfactory. Bones/joints: Degenerative changes. No acute osseous abnormality. IMPRESSION: Emphysema and chronic obstructive pulmonary disease. Dictated and Authenticated by: Swati Patricia MD. Ordering:RACHEL Allen MD
[2022-02-10 07:39] LABS: Troponin I < 50 ng/L (<or=60)
--- NOTE | 2022-02-10 07:39 | W.PM.HP.N ---
Date of service: 02/10/22 Time of Service: 07:20 Assessment and Plan Assessment and plan (1) Acute on chronic respiratory failure with hypoxia and hypercapnia: Status: Acute Assessment and plan: CXR c/w COPD. H/o FOLEY on serolimus. COVID-19 negative by PCR. S/p intubation by ED provider Dr Murphy (6.5 tube, 24.5 cm at lip) using etomidate/succinyl choline and propofol. Post-intubation CXR is pending. Need to address the triple disorder as well. IVF w/ bicarb, abx: vanc, ceftriaxone, doxycycline. Attempting transfer to [facility] - awaiting call back. (2) Acute on chronic respiratory acidosis: Status: Acute Assessment and plan: As above (3) Metabolic acidosis: Status: Acute Assessment and plan: As above (4) Metabolic alkalosis: Status: Acute Assessment and plan: As above (5) Sepsis: Status: Acute Assessment and plan: ? source pulmonary - had a cough. UA also ordered, pending. Briefly hypotensive - responded to IVF. Also received a dose of hydrocortisone 100 mg IV x 1. Empiric abx as above. Await culture results. (6) Hypotension: Status: Acute Assessment and plan: As above. With evidence of lactic acidosis, which is not specific but could be due to septic shock. Tx as above (7) Pulmonary lymphangioleiomyomatosis: Status: Chronic Assessment and plan: Normally on serolimus. I do not know how long ago she ran out of her medications. Known to [facility] which is where we are attempting to transfer her. (8) DVT prophylaxis: Status: Acute Assessment and plan: SC enoxaparin (9) Discharge planning issues: Status: Acute Assessment and plan: Full code Attempted to contact brother - number in the computer not working. Attempting to transfer to [facility]. Total Critical Care Time 120 minutes so far. History of Present Illness History of Present Illness Chief Complaint: shortness of breath, confusion Narrative: Ms Abel is a 61 year old female with PMHx of pulmonary FOLEY on immunosuppression with serolium, chronic hypoxic and hypercapnic respiratory failure on home oxygen 3-4 L, hypertension, prior episode of CO2 narcosis/respiratory acidosis at [facility] which improved on BIPAP, who presented to [facility] ED for shortness of breath and altered mental status. Per overnight provider,, the patient had run out of her medications (unclear when), has developed shortness of breath over 1 day, and also had a cough. Per nursing, she had initially called EMS yesterday, and refused hospitalization after improvement with nebulizer treatment. However, she EMS was called back and she was taken to [facility] ED with worsening mental status and shortness of breath. She was found to be hypoxic to 70s (unclear on what the amount of oxygen was). She received IM epinephrine by EMS. In the ER, her VBG showed a pH of 6.99, pCO2 of 47, pO2 of 71. Her Lactate was 3.5. She was started on BiPAP 10/5 w/ FiO2 30%. An hour later on those settings, her ABG (vs mixed venous gas) showed a pH of 6.89, pCO2 of 67, pO2 of 53, bicarb of 13, O2 sat of 74%. Her BiPAp settings were changed to 12/5 w/ FiO2 of 55%. On these settings, her pH remains 6.89, pCO2 went down to 60 per VBG. Her ABG analysis is c/w a tripple disorder (respiratory acidosis, metabolic acidosis, metabolic alkalosis). She has evidence of lactic acidosis. She was hypotensive w/ a MAP of 51, received LR 1L w/ improvement of MAP to 71. She is being started on empiric vancomycin and doxycycline in addition to She is receiving bicarb bolus and drip, IVF, hydrocortisone IV, and is getting intubated. Attempt made to contact brother on number listed in [employer] - it's a non-working number. Review of Systems All systems reviewed & are unremarkable except as noted in HPI and below PFSH All Active Problems (Updated 02/10/22 @ 08:54 by Marlena Alves MD) Discharge planning issues (Acute) DVT prophylaxis (Acute) Hypotension (Acute) Sepsis (Acute) Metabolic alkalosis (Acute) Metabolic acidosis (Acute) Acute on chronic respiratory acidosis (Acute) Acute on chronic respiratory failure with hypoxia and hypercapnia (Acute) Severe protein-calorie malnutrition (Acute) Chronic respiratory failure with hypoxia and hypercapnia (Acute) Pulmonary lymphangioleiomyomatosis (Chronic) Acute respiratory failure with hypoxia (Acute) Increased anion gap metabolic acidosis (Acute) Acidosis, lactic (Acute) Medical History (Updated 02/10/22 @ 08:54 by Marlena Alves MD) Alcohol abuse Angiomyolipoma of left kidney Carpal tunnel syndrome Chronic pain Clear cell carcinoma of right lung Fracture of femoral neck, right Hyperlipidemia Hypertension Hypotension Postoperative anemia due to acute blood loss Surgical History (Updated 02/10/22 @ 07:47 by Marlena Alves MD) H/O right nephrectomy History of esophagogastroduodenoscopy (EGD) S/P total right hip arthroplasty Family History (Updated 02/10/22 @ 07:47 by Marlena Alves MD) Brother Asthma Social History Smoking/Tobacco Use Status: Former Tobacco Use Smoking risk assessment performed?: Yes Drug use: Never Substance use type: does not use Meds Allergies and Home Medications Allergies Allergy/AdvReac Type Severity Reaction Status Date / Time No Known Allergies Allergy Unverified 02/10/22 06:13 Home Medications Medication Instructions Recorded Confirmed Type ascorbic acid (vitamin C) 1,000 mg 1,000 mg PO DAILY 08/05/21 02/10/22 History tablet (Vitamin C) furosemide 20 mg tablet (Lasix) 20 mg PO DAILY 08/05/21 02/10/22 History metoprolol tartrate 25 mg tablet 25 mg PO DAILY 08/05/21 02/10/22 History simvastatin 10 mg tablet 10 mg PO DAILY 08/05/21 02/10/22 History sirolimus 2 mg tablet (Rapamune) 2 mg PO DAILY 08/05/21 02/10/22 History Exam Narrative Exam Narrative: General: Frail female who is on BiPAP, arousable to loud verbal and painful stimuli, unable to answer questions, but is able to cooperate with turning for pulmonary exam Neurological: lethargic, arousable, no obvious focal deficits Psychiatric: impossible to evaluate given mental status. Skin: Visible skin dry, intact HEENT: Atraumatic, normocepahlic, EOMI, dry MM, unable to evaluate oropharynx due to BiPAP in place, no submandibular or cervical lymphadenopathy, no goiter or JVD Cardiovascular: RRR, mildly tachycardic, no m/r/g Lungs: Diminished breath sounds B, no wheezing or crackles Gastrointestinal: soft, nontender, nondistended Genitourinary: no farley Extremities: no edema BLEs, +1 pedal pulses B. Results Imaging Chest x-ray: pending Additional studies: CXR: Emphysema and chronic obstructive pulmonary disease. Labs Result diagrams: 02/10/22 04:30 02/10/22 04:30 Labs: Laboratory Results - last 24 hr 02/10/22 02/10/22 02/10/22 04:30 04:30 04:30 WBC RBC Hgb Hct MCV MCH MCHC RDW Plt Count MPV Immature Gran % Neutrophils % Lymphocytes % Monocytes % Eosinophils % Basophils % Nucleated RBC % Absolute Neutrophils Absolute Lymphocytes Absolute Monocytes Absolute Eosinophils Absolute Basophils ABG Sample Site ABG pH ABG pCO2 ABG pO2 ABG HCO3 ABG Total CO2 ABG O2 Saturation ABG Base Excess VBG pH 6.99 L* VBG pCO2 47 VBG pO2 71 VBG HCO3 11 L VBG Total CO2 11 L VBG O2 Saturation 90 VBG Base Excess < -15 L VBG Lactate Oxygen Liter Flow FiO2 Sodium 135 L Potassium 4.7 Chloride 92 L Carbon Dioxide 13.6 L Anion Gap 29.4 H BUN 27 H Creatinine 1.5 H Est GFR (CKD-EPI 2020) 39.40 Glucose 148 H Calcium 9.5 Magnesium 1.9 Total Bilirubin 0.5 AST 38 H ALT 24 Alkaline Phosphatase 92 Troponin I < 50 NT-Pro-B Natriuret Pep 2015 H Total Protein 7.9 Albumin 4.1 TSH 0.50 Ethyl Alcohol < 3.0 COVID-19 Source SARS-CoV-2 (PCR) 02/10/22 02/10/22 02/10/22 04:30 04:30 05:27 WBC 14.12 H RBC 3.92 L Hgb 12.6 Hct 42.6 MCV 109 H MCH 32.1 MCHC 29.6 L RDW 12.9 Plt Count 413 H MPV 10.2 Immature Gran % 0.5 Neutrophils % 69.1 Lymphocytes % 14.2 Monocytes % 15.4 Eosinophils % 0.0 Basophils % 0.8 Nucleated RBC % 0.0 Absolute Neutrophils 9.76 H Absolute Lymphocytes 2.01 Absolute Monocytes 2.17 H Absolute Eosinophils 0.00 Absolute Basophils 0.11 ABG Sample Site ABG pH ABG pCO2 ABG pO2 ABG HCO3 ABG Total CO2 ABG O2 Saturation ABG Base Excess VBG pH Cancelled VBG pCO2 Cancelled VBG pO2 Cancelled VBG HCO3 Cancelled VBG Total CO2 Cancelled VBG O2 Saturation Cancelled VBG Base Excess Cancelled VBG Lactate 3.5 H* Oxygen Liter Flow FiO2 Sodium Potassium Chloride Carbon Dioxide Anion Gap BUN Creatinine Est GFR (CKD-EPI 2020) Glucose Calcium Magnesium Total Bilirubin AST ALT Alkaline Phosphatase Troponin I NT-Pro-B Natriuret Pep Total Protein Albumin TSH Ethyl Alcohol COVID-19 Source SARS-CoV-2 (PCR) 02/10/22 02/10/22 05:39 05:42 WBC RBC Hgb Hct MCV MCH MCHC RDW Plt Count MPV Immature Gran % Neutrophils % Lymphocytes % Monocytes % Eosinophils % Basophils % Nucleated RBC % Absolute Neutrophils Absolute Lymphocytes Absolute Monocytes Absolute Eosinophils Absolute Basophils ABG Sample Site Right Radial ABG pH 6.89 L* ABG pCO2 67 H* ABG pO2 53 L ABG HCO3 13 L ABG Total CO2 14 L ABG O2 Saturation 74 L ABG Base Excess < -15 L VBG pH VBG pCO2 VBG pO2 VBG HCO3 VBG Total CO2 VBG O2 Saturation VBG Base Excess VBG Lactate Oxygen Liter Flow BiPAP 10/5 FiO2 30 Sodium Potassium Chloride Carbon Dioxide Anion Gap BUN Creatinine Est GFR (CKD-EPI 2020) Glucose Calcium Magnesium Total Bilirubin AST ALT Alkaline Phosphatase Troponin I NT-Pro-B Natriuret Pep Total Protein Albumin TSH Ethyl Alcohol COVID-19 Source Nasal/Nares SARS-CoV-2 (PCR) Negative Last Vital Signs Temp 36.4 C L 02/10/22 06:39 Pulse 115 H 02/10/22 07:35 Resp 24 02/10/22 07:35 BP 119/71 02/10/22 06:39 Pulse Ox 100 02/10/22 07:35
[2022-02-10 07:45] LABS: HCO3 (Venous) 12 mmol/L (23-28); O2 Sat (Venous) 90 %; TCO2 (Venous) 12 mmol/L (24-29); pCO2 (Venous) 60 mmHg (41-51); pO2 (Venous) 73 mmHg
[2022-02-10 07:47] LABS: pH (Venous) 6.89 (7.31-7.41)
[2022-02-10 07:48] LABS: Lactate 3.2 mmol/L (0.6-1.4)
[2022-02-10] MEDS: Lactated Ringers 500 ML IV ×2 (08:07)
[2022-02-10] MEDS: Sodium Bicarbonate 50 MEQ/50 ML SYR IVP (08:07)
[2022-02-10] MEDS: Hydrocortisone SOD SUC. 100 MG VIAL IVP (08:07)
[2022-02-10 08:45] LABS: Lab Add On Test DONE
[2022-02-10] MEDS: PROPOFOL 1,000 MG/100 ML BTL 80 MG IVPB (08:50)
--- NOTE | 2022-02-10 08:50 | PROC.BLANK_ITS ---
Procedures Intubation Time out performed: Yes sedative: Etomidate Mg Given: 15 paralytic: Succinylcholine Mg Given: 100 Laryngoscope: Hagen ET Tube Size: 6.5 Tube Secured Depth (cm): 24 Tube Secured Location: lips Tube Placement Confirmation: confirmation by capnometry Patient Tolerated Procedure: well Additional Comments: 8:05 in the morning I was consulted by Dr. Alves in the ICU for assistance in management of the patient's airway. Mrs. Abel has been on BiPAP and her acid- base status is deteriorated over the course of the past few hours. She is arousable and responsive but nonverbal. Her work of breathing is increased. After discussion with Dr. Alves, it was decided that the patient required endotracheal intubation for airway management. Under direct fluoroscopy using a MAC blade the cords were visualized and there anteriorly but unfortunately the first endotracheal tube passed into the esophagus. The tube was suctioned and removed air was suctioned and patient bagged for approximately 40 seconds. On second attempt using a Hagen blade, a bougie was easily passed through the cords and the endotracheal tube inserted over the bougie. At no point during the procedure the patient's saturations decreased. Her vital signs remained stable. Capnography confirmed endotracheal tube placement as well as bilateral breath sounds. Chest x-ray postintubation ordered by Dr. Alves.
[2022-02-10] MEDS: SODIUM BICARBONATE 150 MEQ in DEXTROSE 5%-WATER 850 ML 100 MEQ IV (09:00)
--- NOTE | 2022-02-10 09:04 | INITIAL_ITS ---
- If Service Date Differs Date of service: 02/10/22 Time of Service: 09:04 Care Management Initial Assess REASON FOR HOSPITALIZATION:: Acute on chronic respiratory failure with hypoxia and hypercapnia, Sepsis PAST MEDICAL HISTORY/PAST SURGICAL HISTORY:: All Active Problems (Updated 02/10/22 @ 08:54 by Marlena Alves MD). Discharge planning issues (Acute). DVT prophylaxis (Acute). Hypotension (Acute). Sepsis (Acute). Metabolic alkalosis (Acute). Metabolic acidosis (Acute). Acute on chronic respiratory acidosis (Acute). Acute on chronic respiratory failure with hypoxia and hypercapnia (Acute). Severe protein-calorie malnutrition (Acute). Chronic respiratory failure with hypoxia and hypercapnia (Acute). Pulmonary lymphangioleiomyomatosis (Chronic). Acute respiratory failure with hypoxia (Acute). Increased anion gap metabolic acidosis (Acute). Acidosis, lactic (Acute). Medical History (Updated 02/10/22 @ 08:54 by Marlena Alves MD). Alcohol abuse. Angiomyolipoma of left kidney. Carpal tunnel syndrome. Chronic pain. Clear cell carcinoma of right lung. Fracture of femoral neck, right. Hyperlipidemia. Hypertension. Hypotension. Postoperative anemia due to acute blood loss. Surgical History (Updated 02/10/22 @ 07:47 by Marlena Alves MD). H/O right nephrectomy. History of esophagogastroduodenoscopy (EGD). S/P total right hip arthroplasty PREVIOUS FUNCTIONAL STATUS/SOCIAL/FAMILY SUPPORTS:: Paradise lives in [facility]. ADVANCE DIRECTIVES:: None on file. Has patient been provided with info about the portal/API?: Yes Did the patient sign up for the portal?: No CODE STATUS:: Full Code INSURANCE COVERAGE / FINANCIAL ISSUES:: [facility]-[employer]. [employer]. [facility] PRIMARY CARE PHYSICIAN:: Aurora Olsen PATIENT/FAMILY EDUCATION NEEDS:: Review discharge instructions, limitations, medications and plan to follow up with community providers. Review ask me three. PLAN:: Paradise is currently intubated in the ICU.
--- NOTE | 2022-02-10 09:16 | DI.VRAD_ITS ---
PROCEDURE INFORMATION: Exam: XR Chest Exam date and time: 02/10/2022 8:37 AM Age: 61 years old Clinical indication: Other: Post intubation TECHNIQUE: Imaging protocol: Radiologic exam of the chest. Views: 1 view. COMPARISON: 1. XR PORTABLE CHEST AP 02/10/2022 5:[address] ABDOMEN PELVIS W 08/05/2021 6:48 PM 3. CR XR CHEST 1V IN DI DEPT 08/05/2021 6:50 PM FINDINGS: Tubes, catheters and devices: An endotracheal tube is newly identified, its tip projecting approximately 4 cm above the elkin. Multiple surgical clips project over the right upper quadrant of the abdomen. There is gaseous distention of the visualized stomach. Lungs: Diffuse coarsening of the interstitial markings consistent with emphysema. No consolidation. No overt pulmonary edema. Pulmonary vasculature is normal in caliber. Pleural spaces: Unremarkable. No pleural effusion or pneumothorax. Heart/Mediastinum: Heart size is normal. Cardiomediastinal contours are stable and satisfactory. Bones/joints: Degenerative changes. No acute osseous abnormality. IMPRESSION: Tip of endotracheal tube projects 4 cm above the elkin. Dictated and Authenticated by: Swati Patricia MD. Ordering:TOMMIE Mnediola MD
--- NOTE | 2022-02-10 09:17 | DI.VRAD_ITS ---
PROCEDURE INFORMATION: Exam: XR Chest Exam date and time: 02/10/2022 8:44 AM Age: 61 years old Clinical indication: Other: Intubation adjustment TECHNIQUE: Imaging protocol: Radiologic exam of the chest. Views: 1 view. COMPARISON: 1. CR XR PORTABLE CHEST AP 02/10/2022 8:37 AM 2. XR PORTABLE CHEST AP 02/10/2022 5:17 AM FINDINGS: Tubes, catheters and devices: An endotracheal tube is again identified, its tip projecting approximately 5 cm above the elkin. Lungs: Diffuse coarsening of the interstitial markings consistent with emphysema. No consolidation or pulmonary edema. Pulmonary vasculature is normal in caliber. Pleural spaces: Unremarkable. No pleural effusion or pneumothorax. Heart/Mediastinum: Heart size is normal. Cardiomediastinal contours are stable and satisfactory. Bones/joints: Degenerative changes. No acute osseous abnormality. IMPRESSION: Tip of endotracheal tube projects 5 cm above the elkin. Dictated and Authenticated by: Swati Patricia MD. Ordering:TOMMIE Mendiola MD
[2022-02-10 09:37] LABS: Procalcitonin 0.4 ng/mL
[2022-02-10] MEDS: DOXYCYCLINE 100 MG in Normal Saline 100 ML IVPB (09:37)
--- NOTE | 2022-02-10 09:43 | DSE_ITS ---
Date of service: 02/10/22 Time of Service: 09:43 DS: Diagnosis Discharge Diagnosis (1) Acute on chronic respiratory failure with hypoxia and hypercapnia: Status: Acute (2) Acute on chronic respiratory acidosis: Status: Acute (3) Metabolic acidosis: Status: Acute (4) Metabolic alkalosis: Status: Acute (5) Sepsis: Status: Acute (6) Hypotension: Status: Acute (7) Pulmonary lymphangioleiomyomatosis: Status: Chronic (8) Alcohol abuse: Discharge Plan Disposition Patient Disposition: [facility] Condition: Critical Discharge Details Reason For Visit: acute hypoxic respiratory failure, copd.... Admit Date/Time: 02/10/22 06:00 Admit Provider: Misbah Montelongo Attending Provider: Misbah Montelongo Primary Care Provider: Aurora Tapia [facility] Course Hospital Course: Ms Abel is a 61 year old female with PMHx of pulmonary FOLEY on immunosuppression with serolium, chronic hypoxic and hypercapnic respiratory failure on home oxygen 3-4 L,? hypertension, prior episode of CO2 narcosis/respiratory acidosis at [facility] which improved on BIPAP, who presented to [facility] ED for shortness of breath and altered mental status. Per overnight provider,, the patient had run out of her medications (unclear when), has developed shortness of breath over 1 day, and also had a cough. Per nursing, she had initially called EMS yesterday, ? and refused hospitalization after improvement with nebulizer treatment. However, she EMS was called back and she was taken to [facility]? ED with worsening mental status and shortness of breath. She was found to be hypoxic to 70s (unclear on what the amount of oxygen was). She received IM epinephrine by EMS. In the ER, her VBG showed a pH of 6.99, pCO2 of 47, pO2 of 71. Her Lactate was 3.5. She was started on BiPAP 10/5 w/ FiO2 30%. An hour later on those settings, her ABG (vs mixed venous gas) showed a pH of 6.89, pCO2 of 67, pO2 of 53, bicarb of 13, O2 sat of 74%. Her BiPAp settings were changed to 12/5 w/ FiO2 of 55%. On these settings, her pH remains 6.89, pCO2 went down to 60 per VBG. Her ABG analysis is c/w a tripple disorder (respi ratory acidosis, metabolic acidosis, metabolic alkalosis). She has evidence of lactic acidosis. She was hypotensive w/ a MAP of 51, received LR 1L w/ improvement of MAP to 71. She is being started on empiric vancomycin and doxycycline in addition to She is receiving bicarb bolus and drip, IVF, hydrocortisone IV. She was intubated with use of etomidate and succinyl choline, is being sedated with propofol. She was accepted in transfer to [facility] to Critical Care Blue Team (accepting MD Dr Zaragoza). Transfer is felt necessary due to medical complexity of the patient as well as in-house presence of pulmonary/critical care, not available at [facility] over the weekend. Attempt made to contact brother on number listed in [phone] - unfortunately, it is a non-working number. Total Critical Care Time today 170 minutes. Please, see MAR for list of medications below. The patient could not provide us with her outpatient prescription list. Home Meds and New Rx's Prescriptions: No Action simvastatin 10 mg Tablet 10 mg PO DAILY furosemide [Lasix] 20 mg Tablet 20 mg PO DAILY sirolimus [Rapamune] 2 mg Tablet 2 mg PO DAILY ascorbic acid (vitamin C) [Vitamin C] 1,000 mg Tablet 1,000 mg PO DAILY metoprolol tartrate 25 mg Tablet 25 mg PO DAILY Discharge Instructions Activity:: bedrest, turn Q2h Diet:: NPO Discharge Orders Discharge Orders: Discharge Order (Routine); Ordered 02/10/22 Ordered By: Marlena Alves DS: Summary Time Spent with Patient providing and/or coordinating discharge services: Greater than 30 minutes Status at Discharge Functional status at discharge: bed bound Overall status at discharge: patient is not back to baseline Mental Status: other (intubated, sedated) Speech and Movement: other (intubated, sedated) Mood: other (intubated, sedated) Affect: other (intubated, sedated) Exam Narrative Exam Narrative: General: Frail female who is on BiPAP, arousable to loud verbal and painful stimuli, unable to answer questions, but is able to cooperate with turning for pulmonary exam Neurological: lethargic, arousable, no obvious focal deficits Psychiatric: impossible to evaluate given mental status. Skin: Visible skin dry, intact HEENT: Atraumatic, normocepahlic, EOMI, dry MM, unable to evaluate oropharynx due to BiPAP in place, no submandibular or cervical lymphadenopathy, no goiter or JVD Cardiovascular: RRR, mildly tachycardic, no m/r/g Lungs: Diminished breath sounds B, no wheezing or crackles Gastrointestinal: soft, nontender, nondistended Genitourinary: no farley Extremities: no edema BLEs, +1 pedal pulses B. Psych Mental Status: other (intubated, sedated) Speech and Movement: other (intubated, sedated) Mood: other (intubated, sedated) Affect: other (intubated, sedated) DS: Data Vitals/I&O Vitals and I&O: Vital Signs Temperature 36.4 C L 02/10/22 06:39 Temperature Source Temporal Artery Scan 02/10/22 04:46 Pulse 110 H 02/10/22 07:51 Pulse 124 H 02/10/22 06:01 Respiratory Rate 24 02/10/22 07:35 Respiratory Effort Accessory Muscle Use 02/10/22 06:02 Respiratory Depth Shallow 02/10/22 06:02 Respiratory Pattern Normal 02/10/22 06:02 Blood Pressure 119/71 02/10/22 06:39 Blood Pressure Mean 82 02/10/22 06:00 Blood Pressure Position Supine 02/10/22 04:46 Pulse Oximetry 100 02/10/22 07:51 Oxygen Delivery Method Bi-pap 02/10/22 05:40 Fraction of Inspired Oxygen (FIO2) 30 02/10/22 07:51 Pain Level 0 02/10/22 06:39 Comment 02/10/22 04:46 Intake & Output 02/09/22 02/09/22 02/10/22 11:59 23:59 11:59 Intake Total 2049 Balance 2049 Weight 43.7 kg Intake: IV 2049 Data Completed and Pending Completed studies during hospitalization [Text1]: CXR #1: Emphysema and chronic obstructive pulmonary disease. CXR #2: Tip of endotracheal tube projects 4 cm above the elkin. CXR #3: Tip of endotracheal tube projects 5 cm above the elkin. Labs on day of discharge: Labs from last 24 hours 02/10/22 02/10/22 02/10/22 Unknown 09:45 07:37 WBC RBC Hgb Hct MCV MCH MCHC RDW Plt Count MPV Immature Gran % Neutrophils % Lymphocytes % Monocytes % Eosinophils % Basophils % Nucleated RBC % Absolute Neutrophils Absolute Lymphocytes Absolute Monocytes Absolute Eosinophils Absolute Basophils ABG Sample Site Pending ABG pH Pending ABG pCO2 Pending ABG pO2 Pending ABG HCO3 Pending ABG Total CO2 Pending ABG O2 Saturation Pending ABG Base Excess Pending VBG pH VBG pCO2 VBG pO2 VBG HCO3 VBG Total CO2 VBG O2 Saturation VBG Base Excess VBG Lactate Oxygen Liter Flow FiO2 Sodium Potassium Chloride Carbon Dioxide Anion Gap BUN Creatinine Est GFR (CKD-EPI 2020) Glucose Calcium Magnesium Total Bilirubin AST ALT Alkaline Phosphatase Troponin I NT-Pro-B Natriuret Pep Total Protein Albumin Procalcitonin 0.4 TSH Ethyl Alcohol COVID-19 Source SARS-CoV-2 (PCR) Add-On Test Request DONE 02/10/22 02/10/22 02/10/22 07:37 07:37 07:35 WBC RBC Hgb Hct MCV MCH MCHC RDW Plt Count MPV Immature Gran % Neutrophils % Lymphocytes % Monocytes % Eosinophils % Basophils % Nucleated RBC % Absolute Neutrophils Absolute Lymphocytes Absolute Monocytes Absolute Eosinophils Absolute Basophils ABG Sample Site ABG pH ABG pCO2 ABG pO2 ABG HCO3 ABG Total CO2 ABG O2 Saturation ABG Base Excess VBG pH 6.89 L* VBG pCO2 60 H VBG pO2 73 VBG HCO3 12 L VBG Total CO2 12 L VBG O2 Saturation 90 VBG Base Excess < -15 L VBG Lactate 3.2 H* Oxygen Liter Flow FiO2 Sodium Potassium Chloride Carbon Dioxide Anion Gap BUN Creatinine Est GFR (CKD-EPI 2020) Glucose Calcium Magnesium Total Bilirubin AST ALT Alkaline Phosphatase Troponin I NT-Pro-B Natriuret Pep Total Protein Albumin Procalcitonin TSH Ethyl Alcohol Pending COVID-19 Source SARS-CoV-2 (PCR) Add-On Test Request 02/10/22 02/10/22 02/10/22 07:15 07:13 06:26 WBC RBC Hgb Hct MCV MCH MCHC RDW Plt Count MPV Immature Gran % Neutrophils % Lymphocytes % Monocytes % Eosinophils % Basophils % Nucleated RBC % Absolute Neutrophils Absolute Lymphocytes Absolute Monocytes Absolute Eosinophils Absolute Basophils ABG Sample Site Cancelled Cancelled ABG pH Cancelled Cancelled ABG pCO2 Cancelled Cancelled ABG pO2 Cancelled Cancelled ABG HCO3 Cancelled Cancelled ABG Total CO2 Cancelled Cancelled ABG O2 Saturation Cancelled Cancelled ABG Base Excess Cancelled Cancelled VBG pH VBG pCO2 VBG pO2 VBG HCO3 VBG Total CO2 VBG O2 Saturation VBG Base Excess VBG Lactate Oxygen Liter Flow Cancelled Cancelled FiO2 Cancelled Cancelled Sodium Potassium Chloride Carbon Dioxide Anion Gap BUN Creatinine Est GFR (CKD-EPI 2020) Glucose Calcium Magnesium Total Bilirubin AST ALT Alkaline Phosphatase Troponin I < 50 NT-Pro-B Natriuret Pep Total Protein Albumin Procalcitonin TSH Ethyl Alcohol COVID-19 Source SARS-CoV-2 (PCR) Add-On Test Request 02/10/22 02/10/22 02/10/22 05:42 05:39 05:27 WBC RBC Hgb Hct MCV MCH MCHC RDW Plt Count MPV Immature Gran % Neutrophils % Lymphocytes % Monocytes % Eosinophils % Basophils % Nucleated RBC % Absolute Neutrophils Absolute Lymphocytes Absolute Monocytes Absolute Eosinophils Absolute Basophils ABG Sample Site Right Radial ABG pH 6.89 L* ABG pCO2 67 H* ABG pO2 53 L ABG HCO3 13 L ABG Total CO2 14 L ABG O2 Saturation 74 L ABG Base Excess < -15 L VBG pH Cancelled VBG pCO2 Cancelled VBG pO2 Cancelled VBG HCO3 Cancelled VBG Total CO2 Cancelled VBG O2 Saturation Cancelled VBG Base Excess Cancelled VBG Lactate Oxygen Liter Flow BiPAP 10/5 FiO2 30 Sodium Potassium Chloride Carbon Dioxide Anion Gap BUN Creatinine Est GFR (CKD-EPI 2020) Glucose Calcium Magnesium Total Bilirubin AST ALT Alkaline Phosphatase Troponin I NT-Pro-B Natriuret Pep Total Protein Albumin Procalcitonin TSH Ethyl Alcohol COVID-19 Source Nasal/Nares SARS-CoV-2 (PCR) Negative Add-On Test Request 02/10/22 02/10/22 02/10/22 04:30 04:30 04:30 WBC 14.12 H RBC 3.92 L Hgb 12.6 Hct 42.6 MCV 109 H MCH 32.1 MCHC 29.6 L RDW 12.9 Plt Count 413 H MPV 10.2 Immature Gran % 0.5 Neutrophils % 69.1 Lymphocytes % 14.2 Monocytes % 15.4 Eosinophils % 0.0 Basophils % 0.8 Nucleated RBC % 0.0 Absolute Neutrophils 9.76 H Absolute Lymphocytes 2.01 Absolute Monocytes 2.17 H Absolute Eosinophils 0.00 Absolute Basophils 0.11 ABG Sample Site ABG pH ABG pCO2 ABG pO2 ABG HCO3 ABG Total CO2 ABG O2 Saturation ABG Base Excess VBG pH VBG pCO2 VBG pO2 VBG HCO3 VBG Total CO2 VBG O2 Saturation VBG Base Excess VBG Lactate 3.5 H* Oxygen Liter Flow FiO2 Sodium Potassium Chloride Carbon Dioxide Anion Gap BUN Creatinine Est GFR (CKD-EPI 2020) Glucose Calcium Magnesium 1.9 Total Bilirubin AST ALT Alkaline Phosphatase Troponin I NT-Pro-B Natriuret Pep 2015 H Total Protein Albumin Procalcitonin TSH 0.50 Ethyl Alcohol < 3.0 COVID-19 Source SARS-CoV-2 (PCR) Add-On Test Request 02/10/22 02/10/22 04:30 04:30 WBC RBC Hgb Hct MCV MCH MCHC RDW Plt Count MPV Immature Gran % Neutrophils % Lymphocytes % Monocytes % Eosinophils % Basophils % Nucleated RBC % Absolute Neutrophils Absolute Lymphocytes Absolute Monocytes Absolute Eosinophils Absolute Basophils ABG Sample Site ABG pH ABG pCO2 ABG pO2 ABG HCO3 ABG Total CO2 ABG O2 Saturation ABG Base Excess VBG pH 6.99 L* VBG pCO2 47 VBG pO2 71 VBG HCO3 11 L VBG Total CO2 11 L VBG O2 Saturation 90 VBG Base Excess < -15 L VBG Lactate Oxygen Liter Flow FiO2 Sodium 135 L Potassium 4.7 Chloride 92 L Carbon Dioxide 13.6 L Anion Gap 29.4 H BUN 27 H Creatinine 1.5 H Est GFR (CKD-EPI 2020) 39.40 Glucose 148 H Calcium 9.5 Magnesium Total Bilirubin 0.5 AST 38 H ALT 24 Alkaline Phosphatase 92 Troponin I < 50 NT-Pro-B Natriuret Pep Total Protein 7.9 Albumin 4.1 Procalcitonin TSH Ethyl Alcohol COVID-19 Source SARS-CoV-2 (PCR) Add-On Test Request 02/10/22 05:05 Blood Blood Culture - Pending 02/10/22 04:53 Blood Blood Culture - Pending Preliminary micro results at discharge 02/10/22 05:05 Blood Culture - Pending Blood 02/10/22 04:53 Blood Culture - Pending Blood [facility] All Active Problems (Updated 02/10/22 @ 08:54 by Marlena Alves MD) Discharge planning issues (Acute) DVT prophylaxis (Acute) Hypotension (Acute) Sepsis (Acute) Metabolic alkalosis (Acute) Metabolic acidosis (Acute) Acute on chronic respiratory acidosis (Acute) Acute on chronic respiratory failure with hypoxia and hypercapnia (Acute) Severe protein-calorie malnutrition (Acute) Chronic respiratory failure with hypoxia and hypercapnia (Acute) Pulmonary lymphangioleiomyomatosis (Chronic) Acute respiratory failure with hypoxia (Acute) Increased anion gap metabolic acidosis (Acute) Acidosis, lactic (Acute) Medical History (Updated 02/10/22 @ 08:54 by Marlena Alves MD) Alcohol abuse Angiomyolipoma of left kidney Carpal tunnel syndrome Chronic pain Clear cell carcinoma of right lung Fracture of femoral neck, right Hyperlipidemia Hypertension Hypotension Postoperative anemia due to acute blood loss Surgical History (Updated 02/10/22 @ 07:47 by Marlena Alves MD) H/O right nephrectomy History of esophagogastroduodenoscopy (EGD) S/P total right hip arthroplasty Family History (Updated 02/10/22 @ 07:47 by Marlena Alves MD) Brother Asthma Social History Smoking/Tobacco Use Status: Former Tobacco Use Smoking risk assessment performed?: Yes Drug use: Never Substance use type: does not use
[2022-02-10 09:46] LABS: ETHANOL BLOOD < 3.0 mg/dL (<10)
[2022-02-10] MEDS: Midazolam 2 MG/2 ML VIAL IVP ×2 (09:54→10:34)
[2022-02-10] MEDS: Enoxaparin 30 MG/0.3 ML SYR SC (09:54)
[2022-02-10] MEDS: Pantoprazole 40 MG VIAL IVP (09:54)
[2022-02-10 10:02] LABS: HCO3 14 mmol/L (22-26); pCO2 55 mmHg (35-45); pO2 43 mmHg (80-105); sO2 73 % (95-98); tCO2 14 mmol/L (23-27)
[2022-02-10 10:05] LABS: FIO2 30 %; Site Left Radial
--- NOTE | 2022-02-10 10:20 | DI.VRAD_ITS ---
PROCEDURE INFORMATION: Exam: XR Chest Exam date and time: 02/10/2022 9:48 AM Age: 61 years old Clinical indication: Other: Ngt placement TECHNIQUE: Imaging protocol: Radiologic exam of the chest. Views: 1 view. COMPARISON: XR PORTABLE CHEST AP 02/10/2022 8:44 AM FINDINGS: Tubes, catheters and devices: A nasogastric tube is identified which courses below the left hemidiaphragm into the stomach and is doubled back on itself with its tip in the gastric cardia. Its side port is well inferior to the gastroesophageal junction. Multiple surgical clips project over the right upper quadrant of the abdomen. Lungs: Unchanged diffuse coarsening of the pulmonary interstitial markings. No new consolidation. Pleural spaces: Unremarkable. Heart/Mediastinum: Heart size is normal. Cardiomediastinal contours are stable and satisfactory. Bones/joints: Unremarkable. IMPRESSION: Nasogastric tube in satisfactory position. Dictated and Authenticated by: Swati Patricia MD. Ordering:TOMMIE Mendiola MD
[2022-02-10 10:30] LABS: Bilirubin Negative (Negative); Blood Negative (Negative); Clarity Clear (Clear); Glucose Negative (Negative); Ketones >=160 mg/dL (Negative); Leukocyte Esterase Negative (Negative); Nitrite Negative (Negative); Specific Gravity >= 1.030 (1.005-1.025); Urobilinogen 0.2 EU/dL (Up TO 0.2); pH 5.5 (5-8)
[2022-02-10] MEDS: VANCOMYCIN/WATER (PEG) 1 GM/200 ML BAG IVPB (10:40)
[2022-02-10] MEDS: cefTRIAXone 2 GM/50 ML BAG IVPB (10:41)
[2022-02-10 10:47] LABS: Bacteria Negative HPF (Negative); C & S Indicated? C&S Done As Ordered; Casts 0-2 Hyaline LPF (Negative); Crystals Negative HPF (Negative); Epithelial Cells Rare HPF (Negative); Mucus Negative (Negative); RBC 0-2 HPF (0-2); WBC Negative HPF (0-5)
--- NOTE | 2022-02-10 21:05 | NUR.NOTE ---
soft restraints used on pt to prevent her from taking bipap offNursing Note:
== END 2022-02-10 11:32 | disposition short-term general hospital (02) | DRG 871 ==
LOC: ER 06:14 → ICU 06:24
PROVIDERS: Internal Medicine; Admitting Provider Family Medicine; Emergency Provider Emergency Medicine; Visit Provider Family Medicine
DX: A41.9 Sepsis, unspecified organism (principal); E43 Unspecified severe protein-calorie malnutrition; J96.21 Acute and chronic respiratory failure with hypoxia; J84.81 Lymphangioleiomyomatosis; J96.22 Acute and chronic respiratory failure with hypercapnia; E87.2 Acidosis; E87.3 Alkalosis; J44.1 Chronic obstructive pulmonary disease with (acute) exacerbation; Z68.1 Body mass index [BMI] 19.9 or less, adult; F10.10 Alcohol abuse, uncomplicated; E78.5 Hyperlipidemia, unspecified; R05.9 Cough, unspecified; I10 Essential (primary) hypertension; Z90.5 Acquired absence of kidney; Z96.641 Presence of right artificial hip joint; Z87.891 Personal history of nicotine dependence; Z20.822 Contact with and (suspected) exposure to COVID-19
CPT/HCPCS: 36415; 71045; 80053; 82805; 84145; 87040; 87081; 87635; 93005; 94640; 94644; 96361; 96365; 96375; 96376; 99284; 99285; 36600; 80320; 81003; 81015; 83605; 83735; 83880; 84443; 84484; 85025; 87086; 93010; 94002; 99291; 99292; J0696; J1650; J1720; J2250; J2270; J2930; J3490; J7060; J7611; J7620

== ENCOUNTER 2022-04-26 19:12 | Emergency (ER) | payer OTHER, SELFPAY ==
[2022-04-26 19:19] VITALS: BP 171/111; PULSE 120; RESP 20; O2SAT 100
--- NOTE | 2022-04-26 20:55 | ED.GENADUL_ITS ---
Discharge Plan Disposition Patient Disposition: Home Condition: Fair Discharge Details Clinical Impression: Infected cat bite of hand Primary Care Provider: Aurora Tapia ED Provider: Farooq Marie Home Meds and New Rx's Prescriptions: New amoxicillin-pot clavulanate 875-125 mg tablet 1 tab PO Q12H 6 Days Qty: 12 0RF Continued simvastatin 10 mg Tablet 10 mg PO DAILY furosemide [Lasix] 20 mg Tablet 20 mg PO DAILY sirolimus [Rapamune] 2 mg Tablet 2 mg PO DAILY ascorbic acid (vitamin C) [Vitamin C] 1,000 mg Tablet 1,000 mg PO DAILY metoprolol tartrate 25 mg Tablet 25 mg PO DAILY Discharge Instructions Instructions: Animal Bite (ED), Wound Infection (ED) Additional Instructions: Please monitor wound closely and if you have any new or significant worsening of symptoms return immediately to the emergency department for reassessment. Otherwise take antibiotic as prescribed and continue to use [id number] pain medication. Please keep your follow-up appointment with pulmonology tomorrow and it was preferred that you have a wound recheck in the next 3 days. Referrals: Aurora Tapia [Primary Care Provider] - (Follow-up preferably in 3 days for reassessment of your wound) Discharge Data Discharge Date/Time-TO BE ENTERED AT DEPARTURE: 04/26/22 21:26 Medical Decision Making Patient presenting to the emergency department for chief complaint of cat bite. She states that this started around 10 AM with a scratch to her right hand. She states since then she has noted significant swelling and redness started to occur. Denies fever chills or other symptoms. She does state that she has difficulty moving hand secondary to pain and discomfort. Hand looks obviously infected with multiple small puncture wounds. Patient states she is up-to-date on her tetanus shot. We will start patient on Augmentin but given that this just started today I do feel that trial of outpatient therapy is appropriate. Did inform patient to monitor symptoms closely and have low threshold to return. After discussion of diagnosis and plan of care patient has no further needs, questions, or concerns and states clear understanding to return to the emergency department for any worsening symptoms. This documentation was generated using [employer] system, please disregard any oddities of phrase or misspellings. Sign Out No HPI General Mode of arrival: ambulatory . Date/Time Provider Initiated Documentation: 04/26/22 20:54 . Limitations to Documentation: no limitations . Information obtained by: patient and RN notes reviewed . History of Present Illness 61 year old F presents to the emergency department with the chief complaint of cat bite right hand , described as moderate, with intensity rated at 8. Quality is described as aching and sharp, and is localized to the right and upper extremity. Patient proximal. Patient started experiencing this hour(s) (10) and it has been constant. No relieving factors improve symptom(s), No exacerbating factors reported . Patient notes no other symptoms.. Patient did receive the following treatments prior to arrival, none Related Data Home Medications Medication Instructions Recorded Confirmed ascorbic acid (vitamin C) 1,000 mg 1,000 mg PO DAILY 08/05/21 02/10/22 tablet (Vitamin C) furosemide 20 mg tablet (Lasix) 20 mg PO DAILY 08/05/21 02/10/22 metoprolol tartrate 25 mg tablet 25 mg PO DAILY 08/05/21 02/10/22 simvastatin 10 mg tablet 10 mg PO DAILY 08/05/21 02/10/22 sirolimus 2 mg tablet (Rapamune) 2 mg PO DAILY 08/05/21 02/10/22 amoxicillin 875 mg-potassium 1 tab PO Q12H 6 days #12 tabs 04/26/22 clavulanate 125 mg tablet Previous Rx's Medication Instructions Recorded amoxicillin 875 mg-potassium 1 tab PO Q12H 6 days #12 tabs 04/26/22 clavulanate 125 mg tablet Allergies Allergy/AdvReac Type Severity Reaction Status Date / Time No Known Allergies Allergy Unverified 02/10/22 06:13 General Stated Complaint: AnimalBite LAZARA: 3 Review of Systems Constitutional Constitutional: Denies chills and Denies fever(s) Cardiovascular Cardiovascular: Denies chest pain and Denies dyspnea Respiratory Respiratory: Denies cough and Denies dyspnea Gastrointestinal Gastrointestinal: Denies abdominal pain and Denies vomiting Musculoskeletal Musculoskeletal: Reports as per HPI Integumentary/Breasts Skin/Breast: Reports as per HPI and Reports erythema Neurologic Neurologic: Denies paresthesias PFSH All Active Problems (Updated 04/26/22 @ 20:59 by Farooq Marie NP) Infected cat bite of hand (Acute) Hypotension (Acute) Sepsis (Acute) Metabolic alkalosis (Acute) Metabolic acidosis (Acute) Acute on chronic respiratory acidosis (Acute) Acute on chronic respiratory failure with hypoxia and hypercapnia (Acute) Severe protein-calorie malnutrition (Acute) Chronic respiratory failure with hypoxia and hypercapnia (Acute) Pulmonary lymphangioleiomyomatosis (Chronic) Increased anion gap metabolic acidosis (Acute) Acidosis, lactic (Acute) Medical History (Updated 04/26/22 @ 20:59 by Farooq Marie NP) Alcohol abuse Angiomyolipoma of left kidney Carpal tunnel syndrome Chronic pain Clear cell carcinoma of right lung Fracture of femoral neck, right Hyperlipidemia Hypertension Hypotension Postoperative anemia due to acute blood loss Surgical History (Updated 02/10/22 @ 07:47 by Marlena Alves MD) H/O right nephrectomy History of esophagogastroduodenoscopy (EGD) S/P total right hip arthroplasty Family History (Updated 02/10/22 @ 07:47 by Marlena Alves MD) Brother Asthma Social History Smoking/Tobacco Use Status: Former Tobacco Use Smoking risk assessment performed?: Yes Alcohol Intake: current Alcohol Intake frequency: a few times a month Drug use: Never Substance use type: does not use Do you feel safe at home: Yes Do you feel safe in your relationship?: Yes Exam Const General: cooperative, no acute distress and not ill appearing Orientation: alert, awake and oriented x3 Resp Effort & Inspection: normal respiratory effort, able to speak in complete sentences and no respiratory distress Cardio Rate: regular rate Rhythm: regular rhythm Pulses: radial pulses present and normal peripheral pulses Skin General skin exam: no rashes or lesions noted Neuro General: patient alert, patient awake, patient oriented x3, moves all extremities and no focal motor deficits Sensory Exam: no sensory deficits noted Extrem General: normal exam except as noted Right upper extremity: elbow/forearm Details: tenderness, swelling and other (Erythema), wrist Details: tenderness and swelling and hand Details: neuromotor exam normal, neurosensory exam normal, tendon exam normal, normal ROM of fingers, warmth, swelling, puncture wound and other (Erythema to dorsal hand) Course Vital Signs Vital signs: Vital Signs Pulse 120 H 04/26/22 19:19 Respiratory Rate 20 04/26/22 19:19 Blood Pressure 171/111 H 04/26/22 19:19 Pulse Oximetry 100 04/26/22 19:19 Pulse 120 H 04/26/22 19:19 Respiratory Rate 20 04/26/22 19:19 Blood Pressure 171/111 H 04/26/22 19:19 Blood Pressure Position Sitting 04/26/22 19:19 Pulse Oximetry 100 04/26/22 19:19 Oxygen Delivery Method Nasal Cannula 04/26/22 19:19 Pain Level 6 04/26/22 19:19
[2022-04-26 20:59] VITALS: BP 149/95; RESP 22; TEMP 36.9; O2SAT 98
[2022-04-26] MEDS: Acetaminophen 325 MG TAB 650 MG PO (21:07)
== END 2022-04-26 21:26 | disposition home or self-care (01) ==
PROVIDERS: Emergency Provider Nurse Practitioner Family
DX: S61.451A Open bite of right hand, initial encounter (principal); L03.113 Cellulitis of right upper limb; W55.01XA Bitten by cat, initial encounter
CPT/HCPCS: 99283

== ENCOUNTER 2022-07-11 17:56 | Emergency (ER) | payer OTHER, SELFPAY ==
[2022-07-11] VITALS (31 sets, daily range): BP systolic 109–187; BP diastolic 74–135; PULSE 99–139; RESP 15–36; TEMP 36.7; O2SAT 69–99
--- NOTE | 2022-07-11 18:00 | RT.EKG_ITS ---
APPROVED REPORT Exam: Resting ECG Reason for Exam: sob Patient Location: E HR:132 bpm ECG Measurements Heart Rate 132 AXIS NE 137 P 75 QRSd 84 QRS 69 QT 314 T 61 QTc 465 Conclusion Sinus tachycardia...rate> 99 Ventricular premature complex...V complex w/ short R-R interval I have reviewed and interpreted ECG and agree with software generated interpretation. no stemi
--- NOTE | 2022-07-11 18:00 | DI.RAD_ITS ---
Exam(s) XR PORTABLE CHEST AP EXAM: XR PORTABLE CHEST AP CLINICAL HISTORY: sob, suspect copd TECHNIQUE: 2D digital imaging was performed of the chest. One image was obtained. An AP view was ob tained. COMPARISON: CR,XR XR PORTABLE CHEST AP POST LINE from 02/10/2022 FINDINGS: MEDIASTINUM: Normal. HEART: Normal. PULMONARY VASCULATURE: Normal. LUNGS: There is hyperinflation of the lungs with flattening of the diaphragms suggesting underlying C OPD. No focal consolidating infiltrates are present. There is unchanged interstitial thickening in the lungs bilaterally suggesting chronic fibrosis. PLEURAL SPACE: No pleural effusion or pneumothorax. Blunting of the costophrenic angles is seen bilat erally likely reflecting scarring. Tiny pleural effusions cannot be excluded. BONE:Within normal limits for the patient's age. OTHER FINDINGS:Normal. IMPRESSION: 1. No focal consolidating infiltrates. 2. COPD. DATA REPOSITORY: RADIATION DOSE DELIVERED:
[2022-07-11 18:24] LABS: pO2 114 mmHg (80-105); sO2 97 % (95-98)
[2022-07-11 18:26] LABS: Site Right Radial; pCO2 > 100 mmHg (35-45); pH 7.07 (7.35-7.45)
[2022-07-11 18:27] LABS: FIO2 50 %
[2022-07-11] MEDS: MAGNESIUM SULFATE 2 GM/50 ML BAG IVPB ×2 (18:31→20:10)
[2022-07-11 18:41] LABS: BE (Venous) -2 mmol/L (-2-3); HCO3 (Venous) 28 mmol/L (23-28); O2 Sat (Venous) 92 %; TCO2 (Venous) 27 mmol/L (24-29); pO2 (Venous) 77 mmHg
[2022-07-11 18:42] LABS: Abs Immature Grans 0.09 10^3/uL (0.0-0.06); Absolute Basophil Count 0.07 10^3/uL (0.0-0.2); Absolute Eosinophil Count 0.01 10^3/uL (0.0-0.7); Absolute Monocyte Count 0.87 10^3/uL (0.1-0.8); Basophils % 0.6; Eosinophils % 0.1; HCT 46.8 % (36.0-46.0); HGB 14.1 g/dL (11.2-15.7); Immature Grans % 0.8; Lymphocytes % 22.4; MCH 30.9 pg (27.0-33.0); MCHC 30.1 % (32.0-36.0); MCV 103 fL (80-95); MPV 10.1 fL (8.0-11.0); Monocytes % 7.7; Neutrophils % 68.4; Platelet Count 470 10^3/uL (130-400); RBC 4.56 10^6/uL (3.93-5.22); RDW 14.6 % (11.7-14.6); RDW-SD 55.1 fL; WBC 11.27 10^3/uL (4.4-10.8)
[2022-07-11 18:46] LABS: pH (Venous) 7.09 (7.31-7.41)
[2022-07-11 18:47] LABS: pCO2 (Venous) 91 mmHg (41-51)
[2022-07-11 18:49] LABS: Absolute Lymphocyte Count 2.52 10^3/uL (1.2-3.4); Absolute Neutrophil Count 7.71 10^3/uL (1.2-6.7)
--- NOTE | 2022-07-11 18:55 | DI.VRAD_ITS ---
PROCEDURE INFORMATION: Exam: Portable XR Chest Exam date and time: 07/11/2022 6:17 PM Age: 61 years old Clinical indication: Other: SOB, suspect copd TECHNIQUE: Imaging protocol: Portable radiologic exam of the chest. Views: 1 view. COMPARISON: 1. CR XR PORTABLE CHEST AP POST LINE 02/10/2022 9:48 AM 2. XR PORTABLE CHEST AP 02/10/2022 8:44 AM 3. XR PORTABLE CHEST AP 02/10/2022 8:37 AM FINDINGS: Lungs: There is flattening of the diaphragms bilaterally which is suspicious for COPD. Pleural spaces: There is blunting of the costophrenic angles bilaterally. This could represent small bilateral pleural effusions. Heart/Mediastinum: Unremarkable. No cardiomegaly. Bones/joints: Unremarkable. IMPRESSION: Suspect bilateral small pleural effusions. Suspect COPD as above. Dictated and Authenticated by: Nirav Godinez MD. Ordering:NAYELI Morris MD
--- NOTE | 2022-07-11 19:00 | W.ED.GENAD ---
Discharge Plan Disposition Patient Disposition: Transfer-Acute Inpatient Care Specific Acute [facility] Condition: Critical Discharge Details Chief Complaint: SOB/SuddenOnset Clinical Impression: Acute on chronic respiratory failure with hypoxia and hypercapnia Primary Care Provider: Aurora Tapia ED Provider: Arturo Garland Home Meds and New Rx's Prescriptions: No Action simvastatin 10 mg Tablet 10 mg PO DAILY furosemide [Lasix] 20 mg Tablet 20 mg PO DAILY sirolimus [Rapamune] 2 mg Tablet 2 mg PO DAILY ascorbic acid (vitamin C) [Vitamin C] 1,000 mg Tablet 1,000 mg PO DAILY metoprolol tartrate 25 mg Tablet 25 mg PO DAILY Medical Decision Making 61-year-old female with a past medical history of COPD chronically on 3 to 4 L of home oxygen, pulmonary FOLEY, high cholesterol, angiomyolipoma of the left kidney, hypertension, previous right nephrectomy clear-cell carcinoma of the right lung, GERD, who presents today in respiratory distress. EMS was contacted for shortness of breath. When they arrived the patient was saturating in the 90s, on her baseline oxygen. Unfortunately shortly thereafter she immediately plummeted to the 60s to 70s for pulse oximetry, she became extremely anxious and agitated, would not tolerate DuoNebs or BiPAP. She was transferred to the ER for further management. Currently the patient does not exhibit any complaints secondary to her gasping for breath. She is not able to provide any additional historical components. Does appear that on 02/10/2022 she was transferred to [facility] after a similar scenario. Physical exam demonstrates a notably tachypneic and in respiratory distress female. She is gasping for breath. Right-sided lung sounds demonstrate notable wheeze. Oxygenation is in the 70s to 80s. Some Ativan was given via EMS prior to her arrival, I suspect this is starting to kick in now. She was given Solu-Medrol and she refused a neb on transport though. Concern for severe COPD exacerbation. Do not think that she would be a good candidate for intubation at this time. We will give 2 g of magnesium as a fast bolus, will do continued inline nebulizer treatment, will start BiPAP, and monitor closely and reassess. 6:30 PM Patient remains notably confused, she is grasping and ripping at the BiPAP every few minutes, which certainly increases her risk of self-harm. We will use two-point soft restraints for the upper extremities. ABG demonstrates a pH of 7.07, notably high PCO2 greater than 100, O2 is also notably elevated on ABG, bicarb is not calculable. Suspect notable respiratory acidosis. We will continue to aggressively manage. 7:42 PM Clinically the patient looks slightly improved, however repeat ABG demonstrates nonchanging pH of 7.07. Patient appears more alert at this time. I did consult with pulmonology/Dr. Joshi, we did discuss potential intubation, and admission here. She will be coming in to see the patient shortly. 8:50 PM At this time [facility] ICU staff is unable to accept the patient for admission secondary to current nursing status. We did contact [facility] and discussed the case with them, they do not have any beds available at this time for transfer. Repeat ABG was performed at this time, patient has been on BiPAP for 2 hours, and pH is now improving, ABG now demonstrates a pH of 7.1. Clinically the patient looks improved. PCO2 is now down to 83. We did discuss this with Dr. Joshi, she does feel that holding off on intubation at this time is reasonable. 9:55 PM Did discuss the case with [facility], Dr. De La Fuente and Dr. Mazariegos of the ICU. They agree with transfer. They accept the patient for admission at their ICU. Patient will be transferred via [facility]. Patient continues to demonstrate clinical improvement. Oxygenation remained stable in the high 90s, currently on 40% FiO2, with 15/5 her BiPAP settings. Patient is showing clinical improvement, and I do feel that holding off intubation at this time is the best clinical approach currently based on the current clinical assessment and improvement. I have extensively reviewed the treatment plan with the patient. I have addressed all patient concerns at this time. I have also discussed the plan with the admitting physician and they agree with the current assessment and plan and have agreed to assume responsibility for the patient. All parties demonstrate verbal understanding and agreement with our assessment and plan at this time. The documentation in this chart was dictated using [employer] dictation software. Please excuse any dictation errors. FINDINGS: Lungs: There is flattening of the diaphragms bilaterally which is suspicious for COPD. Pleural spaces: There is blunting of the costophrenic angles bilaterally. This could represent small bilateral pleural effusions. Heart/Mediastinum: Unremarkable. No cardiomegaly. Bones/joints: Unremarkable. IMPRESSION: Suspect bilateral small pleural effusions. Suspect COPD as above. Thank you for allowing us to participate in the care of your patient. Dictated and Authenticated by: Nirav Godinez MD 07/11/2022 6:54 PM Eastern Time ([place] & [place]) HPI General Date/Time Provider Initiated Documentation: 07/11/22 18:01. HPI Narrative: 61-year-old female with a past medical history of COPD chronically on 3 to 4 L of home oxygen, pulmonary FOLEY, high cholesterol, angiomyolipoma of the left kidney, hypertension, previous right nephrectomy clear-cell carcinoma of the right lung, GERD, who presents today in respiratory distress. EMS was contacted for shortness of breath. When they arrived the patient was saturating in the 90s, on her baseline oxygen. Unfortunately shortly thereafter she immediately plummeted to the 60s to 70s for pulse oximetry, she became extremely anxious and agitated, would not tolerate DuoNebs or BiPAP. She was transferred to the ER for further management. Currently the patient does not exhibit any complaints secondary to her gasping for breath. She is not able to provide any additional historical components. Does appear that on 02/10/2022 she was transferred to [facility] after a similar scenario. Related Data Home Medications Medication Instructions Recorded Confirmed ascorbic acid (vitamin C) 1,000 mg 1,000 mg PO DAILY 08/05/21 02/10/22 tablet (Vitamin C) furosemide 20 mg tablet (Lasix) 20 mg PO DAILY 08/05/21 02/10/22 metoprolol tartrate 25 mg tablet 25 mg PO DAILY 08/05/21 02/10/22 simvastatin 10 mg tablet 10 mg PO DAILY 08/05/21 02/10/22 sirolimus 2 mg tablet (Rapamune) 2 mg PO DAILY 08/05/21 02/10/22 Allergies Allergy/AdvReac Type Severity Reaction Status Date / Time No Known Allergies Allergy Unverified 02/10/22 06:13 General Stated Complaint: SOB/SuddenOnset LAZARA: 1 Review of Systems All systems reviewed & are unremarkable except as noted in HPI and below PFSH All Active Problems (Updated 07/11/22 @ 21:57 by Arturo Garland DO) Hypotension (Acute) Sepsis (Acute) Metabolic alkalosis (Acute) Metabolic acidosis (Acute) Acute on chronic respiratory acidosis (Acute) Acute on chronic respiratory failure with hypoxia and hypercapnia (Acute) Severe protein-calorie malnutrition (Acute) Chronic respiratory failure with hypoxia and hypercapnia (Acute) Pulmonary lymphangioleiomyomatosis (Chronic) Increased anion gap metabolic acidosis (Acute) Acidosis, lactic (Acute) Medical History Alcohol abuse Angiomyolipoma of left kidney Carpal tunnel syndrome Chronic pain Clear cell carcinoma of right lung Fracture of femoral neck, right Hyperlipidemia Hypertension Hypotension Postoperative anemia due to acute blood loss Surgical History H/O right nephrectomy History of esophagogastroduodenoscopy (EGD) S/P total right hip arthroplasty Family History Brother Asthma Social History Smoking/Tobacco Use Status: Former Tobacco Use Smoking risk assessment performed?: Yes Alcohol Intake: current Alcohol Intake frequency: a few times a month Drug use: Never Substance use type: does not use Do you feel safe at home: Yes Do you feel safe in your relationship?: Yes Exam Narrative Exam Narrative: 1.Const: Thin, somewhat cachectic appearing 2.Eyes: PERRL, no conjunctival injection, and symmetrical lids. 3.ENT: Atraumatic external nose and ears. Dry MM. Neck: Symmetric, trachea midline, No thyromegaly. 4.CVS: +S1/S2, No murmurs or gallops. Peripheral pulses 2+ and equal in all extremities. Brisk capillary refill in all extremities. 5.RESP: Extremely labored respiratory effort, diminished breath sounds throughout, notable wheeze on the right. Minimal lung sounds on the left. 6.GI: Soft, Nontender/Nondistended, No hepatosplenomegaly. No guarding or rebound. 7.MSK: Normocephalic/Atraumatic, Extremities w/o deformity or ttp No cyanosis or clubbing, Normal movement of all extremities 8.Skin: Warm, Dry. No rashes or lesions. 9.Neuro: vocational rehabilitation administrator II-XII grossly intact. Sensation grossly intact, no focal neurologic deficits. 10.Psych: (AAO) x0. Altered, GCS of 12 Course Vital Signs Vital signs: Vital Signs Temperature 36.7 C 07/11/22 18:05 Pulse 126 H 07/11/22 18:05 Respiratory Rate 32 H 07/11/22 18:05 Pulse Oximetry 85 L 07/11/22 18:05 Temperature 36.7 C 07/11/22 18:05 Temperature Source Skin 07/11/22 18:05 Pulse 110 H 07/11/22 18:51 Respiratory Rate 27 H 07/11/22 18:51 Pulse Oximetry 89 L 07/11/22 18:51 Oxygen Delivery Method Bi-pap 07/11/22 18:11 Fraction of Inspired Oxygen (FIO2) 30 07/11/22 18:51 Lab/Test Results Lab/Test Results: Laboratory Tests Range/Units 07/11/22 07/11/22 07/11/22 17:50 18:21 18:31 WBC (4.4-10.8) 10^3/uL 11.27 H RBC (3.93-5.22) 10^6/uL 4.56 Hgb (11.2-15.7) g/dL 14.1 Hct (36.0-46.0) % 46.8 H MCV (80-95) fL 103 H MCH (27.0-33.0) pg 30.9 MCHC (32.0-36.0) % 30.1 L RDW (11.7-14.6) % 14.6 Plt Count (130-400) 10^3/uL 470 H MPV (8.0-11.0) fL 10.1 Immature Gran % 0.8 Neutrophils % 68.4 Lymphocytes % 22.4 Monocytes % 7.7 Eosinophils % 0.1 Basophils % 0.6 Nucleated RBC % (0.0-0.3) % 0.0 Absolute Neutrophils (1.2-6.7) 10^3/uL 7.71 H Absolute Lymphocytes (1.2-3.4) 10^3/uL 2.52 Absolute Monocytes (0.1-0.8) 10^3/uL 0.87 H Absolute Eosinophils (0.0-0.7) 10^3/uL 0.01 Absolute Basophils (0.0-0.2) 10^3/uL 0.07 ABG Sample Site Right Radial ABG pH (7.35-7.45) 7.07 L* ABG pCO2 (35-45) mmHg > 100 H* ABG pO2 (80-105) mmHg 114 H ABG HCO3 (22-26) mmol/L ABG Total CO2 (23-27) mmol/L ABG O2 Saturation (95-98) % 97 ABG Base Excess (-2-3) mmol/L VBG pH (7.31-7.41) 7.09 L* VBG pCO2 (41-51) mmHg 91 H* VBG pO2 mmHg 77 VBG HCO3 (23-28) mmol/L 28 VBG Total CO2 (24-29) mmol/L 27 VBG O2 Saturation % 92 VBG Base Excess (-2-3) mmol/L -2 Oxygen Liter Flow L BIPAP 12/5 FiO2 % 50 Procedures EJ/Peripheral Line Arm L: Time Out Performed: Yes Skin Cleansed in Sterile Fashion: Yes Size (gauge): 20 IV Secured and Dressing Applied: Yes Patient Tolerated Procedure: well and no complications Additional Comments: Candidate vein examined with linear array probe - confirmed collapsibility, lack of pulsatility, and proper anatomic location. Using aseptic technique, IV catheter inserted with flash of blood noted, flow of venous blood confirmed. Flushes easily and without pain. No hematoma or complications noted. IV secured. Patient tolerated well. Critical Care Time Critical Care Time Critical Care Time: Yes Total Critical Care Time: 110 Attestation: Upon my evaluation, this patient had a high probability of imminent or life-threatening deterioration, which required my direct attention, intervention, and personal management. I have personally provided 110 minutes of critical care time exclusive of time spent on separately billable procedures. Time includes review of laboratory data, radiology results, discussion with consultants, and monitoring for potential decompensation. Interventions were performed as documented.
[2022-07-11 19:01] LABS: ALT 31 U/L (14-59); AST 52 U/L (15-37); Albumin 4.2 g/dL (3.4-5.0); Alkaline Phosphatase 134 U/L (46-116); Anion Gap 11.2 mmol/L (3-11); BUN 23 mg/dL (7-18); Bilirubin, Total 0.4 mg/dL (0.2-1.0); CO2 30.8 mmol/L (21.0-32.0); CREATININE 0.7 mg/dL (0.55-1.02); Calcium 9.5 mg/dL (8.5-10.1); Chloride 96 mmol/L (98-107); Estimated GFR 98.34 (mL/min/1.73m2); Glucose 124 mg/dL (74-106); Sodium 138 mmol/L (136-145); Total Protein 7.8 g/dL (6.4-8.2); Troponin I < 50 ng/L (<or=60)
[2022-07-11] MEDS: Albuterol/Ipratropium 3 ML UPD VIAL 9 ML UPD (19:03)
[2022-07-11 19:20] LABS: BE -3 mmol/L (-2-3); HCO3 28 mmol/L (22-26); pO2 85 mmHg (80-105); sO2 94 % (95-98); tCO2 27 mmol/L (23-27)
[2022-07-11 19:23] LABS: Site Right Radial; pCO2 95 mmHg (35-45); pH 7.07 (7.35-7.45)
[2022-07-11 19:31] LABS: COVID-19 PCR Negative (Negative); Influenza A PCR Negative (Negative); Influenza B PCR Negative (Negative); RSV PCR Negative (Negative)
[2022-07-11 19:32] LABS: Source Nasopharynx
[2022-07-11 19:51] LABS: PTT Activated 24.5 sec (21.5-31.9)
[2022-07-11 20:05] LABS: D-Dimer 1176 ng/mlFEU (<500)
[2022-07-11 20:06] LABS: INR 0.8 (0.9-1.1); Prothrombin Time 8.6 sec (9.3-11.0)
[2022-07-11 20:09] LABS: BE -4 mmol/L (-2-3); HCO3 26 mmol/L (22-26); pO2 83 mmHg (80-105); sO2 94 % (95-98); tCO2 25 mmol/L (23-27)
[2022-07-11 20:12] LABS: FIO2 45 %; Site Left Radial; pCO2 83 mmHg (35-45)
[2022-07-11 21:29] LABS: Magnesium 5.4 mg/dL (1.8-2.4)
--- NOTE | 2022-07-11 21:46 | NUR.NOTE ---
Nursing Note: Report given to Inez Henderson RN at [facility] room 403. All questions answered.
[2022-07-11 22:19] LABS: Troponin I < 50 ng/L (<or=60)
[2022-07-11] MEDS: LORazepam 2 MG/ML VIAL 1 MG IVP (22:19)
--- NOTE | 2022-07-11 22:29 | NUR.NOTE ---
Nursing Note: Report given to EMS for transport. Pt out of ER with EMS crew.
[2022-07-11] MEDS: Normal Saline 500 ML IV (22:30)
== END 2022-07-11 22:38 | disposition short-term general hospital (02) ==
PROVIDERS: Emergency Provider Student in an Organized Health Care Education/Training Program
DX: J96.21 Acute and chronic respiratory failure with hypoxia (principal); J96.22 Acute and chronic respiratory failure with hypercapnia; J44.9 Chronic obstructive pulmonary disease, unspecified; E78.00 Pure hypercholesterolemia, unspecified; I10 Essential (primary) hypertension; C34.91 Malignant neoplasm of unspecified part of right bronchus or lung; Z87.891 Personal history of nicotine dependence; Z20.822 Contact with and (suspected) exposure to COVID-19
CPT/HCPCS: 80053; 82805; 87637; 93005; 96365; 96366; 96368; 96375; 99291; 99292; 36600; 71045; 83605; 83735; 84484; 85025; 85379; 85610; 85730; 93010; 94640; J2060; J7620